=== PATIENT | male | born 1960 | race Two or more races ===

== ENCOUNTER 2019-08-22 07:29 | Inpatient (IN) | payer OTHER ==
[~2019-08-22] VITALS: Ht 172.7 cm; Wt 62.1 kg
[2019-08-22 07:35] VITALS: BP 116/62
--- NOTE | 2019-08-22 07:35 | NUR ---
ED Nurse Note: Patient brought in to ER from street due to ETOH. per EMS, there were few bottles of alcohol around pt when they picked him up. pt opens eyes spontaneously but non verbal. pt restless and tried to remove electrodes and O2 monitor. pt has hernia on abdoman and ERMD assessed. Rt elbow skin tear noted. pt is in gown and on monitor technician. pt uncooperative and restless. posterior skin will be assessed later. clear lung sound noted. BS 113mg/dl, reported to ERMD.
--- NOTE | 2019-08-22 07:40 | NUR ---
ED Nurse Note: warts around penis noted without drainage.
[2019-08-22 08:15] LABS: HEMOGLOBIN 10.7 G/DL (14.2-18.0); MEAN CORPUSCULAR VOLUME 114 FL (80-99); PLATELET COUNT 202 K/UL (150-450); RED BLOOD COUNT 2.91 M/UL (4.70-6.10); RED CELL DISTRIBUTION WIDTH 14.6 % (11.6-14.8); WHITE BLOOD COUNT 11.4 K/UL (4.8-10.8)
--- NOTE | 2019-08-22 08:19 | Emergency Room Report ---
History of Present Illness General Chief Complaint: Altered Level of Consciousness Source: EMS Present Illness HPI 49-year-old male brought in with altered mental status. As per EMS he was sleeping in his makeshift tent and was found to be more lethargic and at baseline. Patient had alcohol on breath. Patient as per EMS was alert oriented x2 however patient is not responding with any verbal responses at this time. History is limited due to patient's mental status changes. Allergies: Coded Allergies: UNABLE TO ASSESS (Unverified , 08/22/19) Patient History Limited by: medical condition Past Medical History: unable to obtain Past Surgical History: unable to obtain Pertinent Family History: unable to obtain Nursing Documentation-PMH Hx Gastrointestinal Problems: Yes - HERNIA Review of Systems All Other Systems: limited - Unable to obtain due to mental status changes Physical Exam Vital Signs Date Time Temp Pulse Resp B/P (MAP) Pulse Ox O2 Delivery O2 Flow Rate FiO2 08/22/19 07:26 99.0 84 18 132/78 (96) 99 Room Air Sp02 EP Interpretation: reviewed General Appearance: no apparent distress, alert, non-toxic, other - Alert but no verbal responses Head: normocephalic, atraumatic Eyes: bilateral eye normal inspection ENT: hearing grossly normal, EOM grossly intact, moist mucus membranes Neck: supple Respiratory: lungs clear, normal breath sounds, no respiratory distress, speaking full sentences Cardiovascular #1: regular rate, rhythm, normal capillary refill Cardiovascular #2: 2+ radial (R), 2+ radial (L) Gastrointestinal: soft, non-distended Rectal: deferred Musculoskeletal: moves extm spontaneously, no lower extremity edema Neurologic: alert, motor strength/tone normal - Unable to fully test however no gross deficits noted, phlebotomist associate III-XII nml as tested - Unable to fully test but no gross deficits noted, sensory intact, other - Does not follow commands, nonverbal, moving all 4 extremities and withdraws from pain Psychiatric: other - Unable to test as patient is nonverbal Skin: warm/dry, normal turgor Medical Decision Making ER Course 49-year-old male presents with altered mental status. History is limited due to mental status changes. Patient has no focal deficits on exam. Laboratory Tests Test 08/22/19 07:50 08/22/19 08:45 White Blood Count 11.4 K/UL (4.8-10.8) H Red Blood Count 2.91 M/UL (4.70-6.10) L Hemoglobin 10.7 G/DL (14.2-18.0) L Hematocrit 33.0 % (42.0-52.0) L Mean Corpuscular Volume 114 FL (80-99) H Mean Corpuscular Hemoglobin 36.7 PG (27.0-31.0) H Mean Corpuscular Hemoglobin Concent 32.4 G/DL (32.0-36.0) Red Cell Distribution Width 14.6 % (11.6-14.8) Platelet Count 202 K/UL (150-450) Mean Platelet Volume 5.1 FL (6.5-10.1) L Neutrophils (%) (Auto) % (45.0-75.0) Lymphocytes (%) (Auto) % (20.0-45.0) Monocytes (%) (Auto) % (1.0-10.0) Eosinophils (%) (Auto) % (0.0-3.0) Basophils (%) (Auto) % (0.0-2.0) Differential Total Cells Counted 100 Neutrophils % (Manual) 63 % (45-75) Lymphocytes % (Manual) 28 % (20-45) Monocytes % (Manual) 6 % (1-10) Eosinophils % (Manual) 2 % (0-3) Basophils % (Manual) 1 % (0-2) Band Neutrophils 0 % (0-8) Platelet Estimate Adequate Platelet Morphology Normal Hypochromasia 1+ Anisocytosis 1+ Macrocytosis 2+ Sodium Level 141 MMOL/L (136-145) Potassium Level 4.0 MMOL/L (3.5-5.1) Chloride Level 105 MMOL/L (98-107) Carbon Dioxide Level 21 MMOL/L (21-32) Anion Gap 15 mmol/L (5-15) Blood Urea Nitrogen 3 mg/dL (7-18) L Creatinine 0.8 MG/DL (0.55-1.30) Estimate Glomerular Filtration Rate > 60 mL/min (>60) Glucose Level 125 MG/DL (74-106) H Calcium Level 8.4 MG/DL (8.5-10.1) L Total Bilirubin 3.7 MG/DL (0.2-1.0) H Direct Bilirubin 2.6 MG/DL (0.0-0.3) H Aspartate Amino Transferase (AST) 102 U/L (15-37) H Alanine Aminotransferase (ALT) 26 U/L (12-78) Alkaline Phosphatase 155 U/L (46-116) H Total Creatine Kinase 83 U/L (26-140) Troponin I 0.026 ng/mL (0.000-0.056) Total Protein 8.5 G/DL (6.4-8.2) H Albumin 2.1 G/DL (3.4-5.0) L Globulin 6.4 g/dL Albumin/Globulin Ratio 0.3 (1.0-2.7) L Serum Alcohol 227 mg/dL Urine Color [place] Urine Appearance Slightly cloudy Urine pH 6 (4.5-8.0) Urine Specific [place] 1.015 (1.005-1.035) Urine Protein 1+ (NEGATIVE) H Urine Glucose (UA) Negative (NEGATIVE) Urine Ketones 1+ (NEGATIVE) H Urine Blood 3+ (NEGATIVE) H Urine Nitrite Positive (NEGATIVE) H Urine Bilirubin Negative (NEGATIVE) Urine Ictotest Negative (NEGATIVE) Urine Urobilinogen 1 MG/DL (0.0-1.0) H Urine Leukocyte Esterase 2+ (NEGATIVE) H Urine RBC 0-2 /HPF (0 - 0) H Urine WBC 15-20 /HPF (0 - 0) H Urine Squamous Epithelial Cells Occasional /LPF Urine Bacteria Many /HPF (NONE) H Urine Opiates Screen Negative (NEGATIVE) Urine Barbiturates Screen Negative (NEGATIVE) Phencyclidine (PCP) Screen Positive (NEGATIVE) H Urine Amphetamines Screen Negative (NEGATIVE) Urine Benzodiazepines Screen Negative (NEGATIVE) Urine Cocaine Screen Negative (NEGATIVE) Urine Marijuana (THC) Screen Negative (NEGATIVE) Lab Results Impression Mild anemia with hemoglobin of 10.7 mild elevated WBC, CMP shows mild elevated liver enzyme and alk phos, Urine notes to have many squamous epithelial cells bacteria, positive nitrates, blood, leukocyte esterase, concerning for infection UDS noted positive for PCP EKG Diagnostic Results EKG Time: 08:23 EP Interpretation: A. fib Rate: other - 90s Rhythm: other - A. fib ST Segments: other - QT segment 408, QTc 499 CT/MRI/US Diagnostic Results CT/MRI/US Diagnostic Results : Impression Procedure: CT Head no Contrast EXAM: CT Head Without Intravenous Contrast CLINICAL HISTORY: AMS TECHNIQUE: Axial computed tomography images of the head/brain without intravenous contrast. CTDI is 62.7 mGy and DLP is 1489.1 mGy-cm. One or more of the following dose reduction techniques were used: automated exposure control, adjustment of the mA and/or kV according to patient size, use of iterative reconstruction technique. COMPARISON: No relevant prior studies available. FINDINGS: Brain: No intracranial hemorrhage or mass effect. No clear acute large vessel territorial infarct. Generalized involutional change. Ventricles: Unremarkable. No ventriculomegaly. Bones/joints: No acute fracture. Soft tissues: Unremarkable. Sinuses: Unremarkable as visualized. No acute sinusitis. Mastoid air cells: Unremarkable as visualized. No mastoid effusion. IMPRESSION: No acute intracranial process Last Vital Signs Date Time Temp Pulse Resp B/P (MAP) Pulse Ox O2 Delivery O2 Flow Rate FiO2 08/22/19 07:26 99.0 84 18 132/78 (96) 99 Room Air Status: unchanged Reevaluation Impression Patient laboratory studies reviewed noted to be positive for PCP. Patient has been altered for greater than 6 hours while being observed in the emergency room with no improvement. Patient's vitals are stable at this time. Head CT was reviewed and noted to be negative. For intracranial hemorrhage or mass- effect. Discussed patient's care with on-call physician and patient to be admitted for further work-up and mental status changes. Disposition: ADMITTED INPATIENT Condition: Serious Scripts Unable to Obtain Active Prescriptions or Reported Meds Referrals: NOT CHOSEN BABAR/,REFERRING (PCP) Margarito Quiros M.D. Aug 22, 2019 08:19
[2019-08-22 08:35] VITALS: BP 115/81
[2019-08-22 08:35] LABS: ANION GAP 15 mmol/L (5-15); BLOOD UREA NITROGEN 3 mg/dL (7-18); CALCIUM 8.4 MG/DL (8.5-10.1); CARBON DIOXIDE 21 MMOL/L (21-32); CHLORIDE 105 MMOL/L (98-107); CREATININE 0.8 MG/DL (0.55-1.30); SODIUM 141 MMOL/L (136-145)
--- NOTE | 2019-08-22 08:45 | NUR ---
ED Nurse Note: pt taken down to CT scan.
[2019-08-22 08:46] LABS: ALANINE AMINOTRANSFERASE 26 U/L (12-78); ALBUMIN 2.1 G/DL (3.4-5.0); ALBUMIN/GLOBULIN RATIO 0.3 (1.0-2.7); ALKALINE PHOSPHATASE 155 U/L (46-116); ASPARTATE AMINO TRANSFERASE 102 U/L (15-37); BILIRUBIN,TOTAL 3.7 MG/DL (0.2-1.0)
[2019-08-22 08:47] LABS: BILIRUBIN,DIRECT 2.6 MG/DL (0.0-0.3)
[2019-08-22 08:48] LABS: CREATINE KINASE 83 U/L (26-140)
[2019-08-22 08:58] LABS: BILIRUBIN, URINE NEGATIVE (NEGATIVE); COLOR,URINE AMBER; GLUCOSE, URINE (UA) NEGATIVE (NEGATIVE); KETONES,URINE 1+ (NEGATIVE); LEUKOCYTE ESTERASE ,URINE 2+ (NEGATIVE); NITRITE,URINE POSITIVE (NEGATIVE); PH,URINE 6 (4.5-8.0); PROTEIN,URINE 1+ (NEGATIVE); UROBILINOGEN,URINE 1 MG/DL (0.0-1.0)
[2019-08-22 09:04] LABS: APPEARANCE,URINE SLIGHTLY CLOUDY
--- NOTE | 2019-08-22 09:05 | NUR ---
ED Nurse Note: pt came back from CT in [facility].
--- NOTE | 2019-08-22 09:07 | Diagnostic Imaging Report ---
EXAM: CT Head Without Intravenous Contrast CLINICAL HISTORY: AMS TECHNIQUE: Axial computed tomography images of the head/brain without intravenous contrast. CTDI is 62.7 mGy and DLP is 1489.1 mGy-cm. One or more of the following dose reduction techniques were used: automated exposure control, adjustment of the mA and/or kV according to patient size, use of iterative reconstruction technique. COMPARISON: No relevant prior studies available. FINDINGS: Brain: No intracranial hemorrhage or mass effect. No clear acute large vessel territorial infarct. Generalized involutional change. Ventricles: Unremarkable. No ventriculomegaly. Bones/joints: No acute fracture. Soft tissues: Unremarkable. Sinuses: Unremarkable as visualized. No acute sinusitis. Mastoid air cells: Unremarkable as visualized. No mastoid effusion. IMPRESSION: No acute intracranial process
[2019-08-22 09:28] VITALS: BP 108/66
--- NOTE | 2019-08-22 13:14 | NUR ---
ED Nurse Note: report given to REINALDO Fox. will transfer pt after ERMD gave report to Dr. Leavitt.
--- NOTE | 2019-08-22 14:10 | NUR ---
ED Nurse Note: pt transferred to Tele unit with 1 RN and 1 dev technical mgr in stable condition.
--- NOTE | 2019-08-22 14:25 | NUR ---
NURSE NOTES: Received report from REINALDO Bailon. Patient AOx0, non verbal, open eyes spontaneously, withdraws to pain. SR with HR 95, on room air. IV on left upper arm 18G, asymptomatic, patent, intact. Endorsed Head CT taken, need to take CT ABD. Patient unable to provide medical history due to ALCO, unable to provide name, no ID. Belonging checked with RN, application architect on. Abdomen distended, hernia on lower mid quadrant, skin intact except minor laceration on hands and buttocks. Seizure precaution on, Bed in lowest position, side rails upx3, padded, bed alarm on, call light within reach. Will continue to monitor.
[2019-08-22] MEDS: cefTRIAXone 1 GM in D5W 55 ML IVPB SCH (15:16)
--- NOTE | 2019-08-22 15:57 | NUR ---
NURSE NOTES: Received admission order from Dr. Leavitt. Dr. Leavitt made aware patient restless trying to get out of bed, high risk for fall. Per MD, administer Ativan as ordered. Order noted, entered, carried out. Will continue to monitor.
[2019-08-22 16:00] VITALS: BP 100/53
[2019-08-22] MEDS ORDERED: Thiamine 100mg in D5W 55ml IVPB ONE (16:00)
[2019-08-22] MEDS ORDERED: Folic Acid 1 MG, Magnesium Sulfate 2,000 MG, Multivitamin - 12 Injection 10 ML in Sodiu... IV ONE (16:00)
[2019-08-22] MEDS: LORazepam Inj 2mg/ml 1ml IV PRN (16:06)
--- NOTE | 2019-08-22 19:07 | NUR ---
HAND-OFF: Report given to REINALDO Fung.
--- NOTE | 2019-08-22 19:10 | NUR ---
NURSE NOTES: Received patient from REINALDO Sears. Patient asleep in bed, no signs of shortness of breath, pain, or distress noted. IV site checked, intact and patent, no signs of redness, bleeding, or infiltration noted. Seizure precautions in use, side rails padded and suction at bedside. Fall and aspiration precautions in use. Swallow evaluation planned for 08/23, patient currently NPO. Bed in lowest position, brakes on, side rails up x3, and call light within reach. Will continue with plan of care.
[2019-08-22 20:00] VITALS: BP 104/63
[2019-08-22] MEDS: Heparin 5000 units/ml inj SUBQ SCH (21:00)
--- NOTE | 2019-08-22 22:00 | History and Physical Report ---
DATE OF ADMISSION: 08/22/2019 CHIEF COMPLAINT: Altered mental status, toxic metabolic encephalopathy. HISTORY OF PRESENT ILLNESS: The patient is a 49-year-old male. He is unable provide any history. He was brought in with complaints of altered mental status. On evaluation in the emergency room, the patient was agitated and confused. Laboratories were significant for white count of 11, a bilirubin of 3.7 with a direct bilirubin 2.6, AST of 102 and ALT of 26. Troponin was negative. CT scan of the head was unremarkable. Toxicology screen was positive for PCP and he had a serum alcohol level of 227. PAST MEDICAL HISTORY: Unknown. PAST SURGICAL HISTORY: Unknown. CURRENT MEDICATIONS: Unknown. SOCIAL HISTORY: There is no known history of tobacco, ethanol, or drugs. REVIEW OF SYSTEMS: Unobtainable. PHYSICAL EXAMINATION: VITAL SIGNS: Temperature 96.8, pulse 86, respirations 20, and blood pressure 100/53. GENERAL: The patient is in no distress. HEART: Regular rate and rhythm. LUNGS: Clear. ABDOMEN: Soft. EXTREMITIES: Without clubbing or cyanosis. NEUROLOGIC: The patient is unable to follow with the neurologic exam. He is awake, but does not follow commands. ASSESSMENT: This is a 49-year-old male, who presents with altered mental altered, suspect toxic metabolic encephalopathy secondary to PCP. Cannot rule out some component of a mild UTI, cannot rule out hepatic encephalopathy. PLAN: 1. Check an ammonia level. 2. IV antibiotic therapy. 3. Consider MRI of the brain. 4. Benzodiazepines for agitation. 5. The patient to be ordered a banana bag. 6. We will repeat LFTs in the morning. Henry Leavitt M.D. DR: JULISA JOB#: [id number] CC:
[2019-08-23] VITALS: BP 95/57
--- NOTE | 2019-08-23 02:00 | NUR ---
NURSE NOTES: Called Dr. Leavitt's office regarding patient's active vomiting and nausea, as well as complaint of pain. Awaiting callback, will continue to monitor.
--- NOTE | 2019-08-23 03:21 | NUR ---
NURSE NOTES: Dr. Gomez called to order PRN zofran for patient, no new orders regarding pain medications. Noted and carried out. Will continue to monitor.
[2019-08-23 04:00] VITALS: BP 95/53
--- NOTE | 2019-08-23 07:16 | NUR ---
HAND-OFF: Report given to REINALDO Brewer. Patient in stable condition and plan of care endorsed.
[2019-08-23 08:00] VITALS: BP 124/51
--- NOTE | 2019-08-23 08:00 | NUR ---
NURSE NOTES: Patient stable AOx4 with complaints of not feeling well and GERD. Does not want to eat at this time. No s/sx of distress. RR even and unlabored on RA. Heparin running at 12units/kg/hour. Side rails up x2, call light within reach, bed low and locked. Will continue to monitor.
--- NOTE | 2019-08-23 08:00 | NUR ---
NURSE NOTES: Patient stable. States his name is Rocco Hansen is not oriented place, time or purpose. Per patient no more emesis. Abdomen noted to be large with small round red protrusion noted near umbilicus. Pt asking for [place] but no order. Will contact MD. Also asking for juice but informed he is NPO and given ice chips instead. Side rails padded and up x2, call light within reach, bed low and locked. Will continue to monitor.
--- NOTE | 2019-08-23 08:21 | NUR ---
NURSE NOTES: Patient complaining of pain and requesting [place]. Per MD no narcotics. Order for tramadol received.
[2019-08-23] MEDS ORDERED: traMADol 50mg tab ORAL PRN (08:30)
[2019-08-23] MEDS: Thiamine 100mg tab ORAL SCH (08:45)
[2019-08-23] MEDS: Heparin 5000 units/ml inj SUBQ SCH ×2 (08:51→21:00)
--- NOTE | 2019-08-23 08:58 | General Progress Note ---
Assessment/Plan Problem List: (1) AMS (altered mental status) ICD Codes: R41.82 - Altered mental status, unspecified SNOMED: 289615352 Status: stable Assessment/Plan: ams- 2nd to pcp - social servives for placement dc planning no narcotics Subjective ROS Limited/Unobtainable: No Constitutional: Reports: malaise, weakness HEENT: Reports: no symptoms Cardiovascular: Reports: no symptoms Respiratory: Reports: no symptoms Gastrointestinal/Abdominal: Reports: no symptoms Genitourinary: Reports: no symptoms Neurologic/Psychiatric: Reports: anxiety Endocrine: Reports: no symptoms Hematologic/Lymphatic: Reports: no symptoms Allergies: Coded Allergies: UNABLE TO ASSESS (Unverified , 08/22/19) All Systems: reviewed and negative except above Subjective awake and alert. Objective Last 24 Hour Vital Signs Date Time Temp Pulse Resp B/P (MAP) Pulse Ox O2 Delivery O2 Flow Rate FiO2 08/23/19 04:00 96.5 115 18 95/53 (67) 97 08/23/19 04:00 117 08/23/19 00:00 96.0 113 18 95/57 (70) 96 08/23/19 00:00 113 08/22/19 21:00 Room Air 08/22/19 20:00 115 08/22/19 20:00 96.4 116 20 104/63 (77) 95 08/22/19 16:00 106 08/22/19 16:00 96.8 86 20 100/53 (69) 100 08/22/19 14:55 Room Air 08/22/19 14:10 98.6 87 19 116/85 99 Room Air 08/22/19 09:28 95 19 108/66 100 Room Air Intake and Output 08/22/19 08/23/19 19:00 07:00 Intake Total 1000 ml Output Total 850 ml Balance 1000 ml -850 ml Intake Oral 0 ml IV Total 1000 ml Output Urine Total 800 ml Emesis 50 ml Height (Feet): 5 Height (Inches): 8.00 Weight (Pounds): 160 General Appearance: WD/WN, alert Neck: supple Cardiovascular: regular rhythm Respiratory/Chest: lungs clear Abdomen: normal bowel sounds, non tender Edema: no edema noted Arm (L), no edema noted Arm (R), no edema noted Leg (L), no edema noted Leg (R), no edema noted Pedal (L), no edema noted Pedal (R), no edema noted Generalized Henry Leavitt MD Aug 23, 2019 08:58
--- NOTE | 2019-08-23 09:40 | NUR ---
NURSE NOTES: PTT back. Heparin dose increased to 14units/kg/hour. 2500unit heparin bolus administered.
--- NOTE | 2019-08-23 11:15 | NUR ---
SWALLOW/SPEECH THERAPY NOTE: REFERRED FOR SWALLOW EVAL BY DR WOODS, SEE FULL REPORT. DYSPHAGIA RISK FACTORS FOR THIS 49 Y.O.M. (TRANSIENT, NOT HIS REAL NAME WHICH HE SAYS IS HELEN GARCIA TO TWO PEOPLE): ACUTE AMS PER MD suspect toxic metabolic encephalopathy secondary to PCP. Cannot rule out some component of a mild UTI, cannot rule out hepatic encephalopathy. LUNGS ARE CLEAR NOW. PER PATIENT HE HAS BACK PAIN FROM FALL 2 YEARS AGO. HIATAL HERNIA PER PATIENT. NO POLST/AD REGARDING TUBE FEEDING PREFERENCES IF NEEDS. ? DIET PRIOR TO ADMIT LIKELY REGULAR DIET TEXTURE AND THIN LIQUIDS. PER PT OCC PROBLEMS WITH THIN BUT UNCLEAR WHEN THIS STARTED BUT LUNGS ARE CLEAR. TRANSIENT PER MEDICAL RECORD. SLEEPY INITIALLY BUT STAYED AWAKE FOR PO TRIALS. ABLE TO EXPRESS NAME AND YEAR NOT HOSPITAL NAME. DYSARTHRIA/DYSPHONIA - SPEECH IS IMPRECISE AND VOICE IS HOARSE/ROUGH NEEDS REPETITION FOR SOME WORDS. ABLE TO EXPRESS SOME BASIC NEEDS. INITIAL IMPRESSIONS: S/S OF COUGH / DYSPHAGIA WITH SEQUENTIAL SIPS OF WATER VIA STRAW (LAST SIP ONLY) BUT TOLERATES WELL ONE SIP AT A TIME. MILDLY SLOWER (TENDS TO CHEW BOLUS UNNECESSARILY FOR A FEW SECONDS) BUT GROSSLY FUNCTIONAL SWALLOW (FAIR HYOLARYNGEAL EXCURSION) WITH PUREED (TSP APPLESAUCE) W/O ORAL RESIDUE NOR OVERT ASPIRATION. SLOWER CHEWING (7 SECONDS) BUT APPEARED TO HAVE A GROSSLY FUNCTIONAL SWALLOW WITH MASTICATED SOLID (1/2 SALTINE CRACKER) HAS MOST DENTITION W/O ORAL RESIDUE NOR OVERT ASPIRATION. ? SILENT ASPIRATION RISK (HEAD CT NEG BUT MAY GET MRI PER DR WOODS). PER RN NO OVERT S/S OF ASPIRATION WHEN TAKING LARGE PILLS WHOLE WITH WATER. RECOMMENDATIONS: CONSIDER MOD BARIUM SWALLOW STUDY TO FURTHER ASSESS SWALLOW, DETERMINE SILENT ASP RISK, ATTEMPT TRIAL TX. IF PO GIVEN FOR QUALITY OF LIFE (PATIENT HUNGRY), CONSIDER [facility] SOFT CHOPPED DIET AND THIN LIQUIDS (ONLY ONE SIP AT A TIME STRAW/CUP) WITH ALL MEALS SUPERVISE ASSISTED FOR RATE/AMOUNT. DIET TYPE PER MD/RD (NO REPORT TO DATE BY RD). EDUCATED/TRAINED RNMARTIN IN POSTED ASP PRECAUTIONS. SKILLED DYSPHAGIA MANAGEMENT AND TX AND COG-COM EVAL/TX (DYSARTHRIA/DYSPHONIA ? CHECK VOCAL FOLDS AND SEE IF THERE IS A H/O SMOKING AND GERD VOICE IS HOARSE/ROUGH MAY NEED ENT EVAL PRIOR TO ADDRESSING VOICE ISSUES). D/W DR WOODS REGARDING RESULT/RECOMMENDATIONS.
[2019-08-23 12:00] VITALS: BP 118/57
--- NOTE | 2019-08-23 12:46 | NUR ---
CASE MANAGEMENT:REVIEW 49 YR OLD MALE BIBA FROM STREET CC AMS. POSSIBLE ETOH SI: AMS 99.0 84 18 132/78 99% ON RA 'WBC+11.4 IS: 1L NS BOLUS IV BANANA BAG IV THIAMINE CT HEAD URINE CX : TO TELEMETRY DCP: HOMELESS
[2019-08-23] MEDS: cefTRIAXone 1 GM in D5W 55 ML IVPB SCH (14:47)
[2019-08-23 16:00] VITALS: BP 120/50
--- NOTE | 2019-08-23 16:25 | Diagnostic Imaging Report ---
Indication: Abdominal pain Technique: Spiral acquisitions obtained through the abdomen and pelvis. No oral contrast utilized, per emergency room physician request No IV contrast utilized, for emergency room physician request.. Multiplanar reconstructions were generated. Total dose length product 1363 mGycm. CTDIvol(s) mGy. Dose reduction achieved using automated exposure control Comparison: None Findings: Lack of IV contrast limits assessment of the solid organs. The liver is diffusely markedly hypoattenuating, consistent with fatty change. There is a TIPS shunt in place. This extends from the right portal vein to the right hepatic vein. No definite focal hepatic abnormality. The right hepatic lobe is atrophic. The liver surface is difficult to assess as it is nearly isoattenuating with the adjacent ascites fluid. There is a large amount of ascites fluid present. There is also congestion of the mesenteric fat. Ascites fluid also extends into an umbilical hernia. The pancreas is unremarkable. Spleen demonstrates what appear to be vascular embolization coils at its periphery. It is normal in size. The adrenals and kidneys are unremarkable. The gallbladder contains gallstones. There is no biliary ductal dilatation. There is suggestion of circumferential gas surrounding the lumen of the terminal ileum as well as at the ileocecal valve. No portal venous gas is demonstrated. Small bowel is normal in caliber and contrast is seen throughout the entirety of the small bowel, indicating absence of obstructive pathology. No definite small bowel wall thickening noted. The appendix is normal. Contrast is also seen as far distally as the transverse flexure of colon. There is no evidence of diverticulosis or colonic diverticulitis. No free intraperitoneal gas demonstrated. There are bilateral pleural effusions. There is fairly extensive compressive atelectasis and possibly some consolidation at both lung bases. There is generalized edema of the subcutaneous fat. The bones demonstrate degenerative spondylosis changes. There is apparent fusion of the L4 and L5 vertebral bodies and spinous processes Impression: Evidence of fatty liver and cirrhosis, with diffuse hepatic low-attenuation and abnormal hepatic morphology and size, as described A large amount of ascites fluid is present, indicative of portal hypertension TIPS shunt in place. Given the large amount of ascites present despite this, the possibility of malfunction should be considered. Consider sonography for evaluation of TIPS patency Apparent circumferential gas surrounding the lumen of the terminal ileum and along the ileocecal valve. Appearance raises concern for focal pneumatosis. However, this could very well be an artifact of so-called pseudopneumatosis due to gas surrounding stool. Correlate with clinical findings. This critical value findings phoned to Dr. Leavitt at the time of interpretation Evidence of anasarca, with, in addition to the above findings, bilateral pleural effusions, generalized edema of the subcutaneous fat Apparent fusion, likely congenital, of the L4 and L5 vertebral bodies and spinous processes Degenerative spondylosis changes The CT scanner at [facility] is accredited by the [employer] and the scans are performed using protocols designed to limit radiation exposure to as low as reasonably achievable to attain images of sufficient resolution adequate for diagnostic evaluation.
--- NOTE | 2019-08-23 17:25 | NUR ---
NURSE NOTES: Dr. Leavitt contacted regarding CT abdomen results. Orders received for fluids, NPO, CMP and lactic acid. Addendum: 08/23/19 at 1729 by EMILY MATHEW RN /10 abdominal pain reported. Addendum: 08/23/19 at 1730 by EMILY MATHEW RN Order also received for [place].
[2019-08-23] MEDS: D5NS 1,000 ML IV SCH (17:34)
[2019-08-23] MEDS: traMADol 50mg tab ORAL PRN (17:35)
--- NOTE | 2019-08-23 19:43 | NUR ---
HAND-OFF: Report given to Sandhya Hernandez RN. Patient stable. Plan of care endorsed.
--- NOTE | 2019-08-23 19:45 | NUR ---
NURSE NOTES: RECEIVED PATIENT ASLEEP, AROUSABLE. FALL AND SEIZURE PRECAUTIONS IN PLACE: CALL LIGHT AND BEDSIDE TABLE WITHIN REACH, BED IN LOW POSITION AND BED ALARM ON; SIDE RAILS PADDED. WILL CONTINUE WITH PLAN OF CARE.
[2019-08-23 21:00] VITALS: BP 100/56
[2019-08-23] MEDS ORDERED: Tubing IV Secondary IV ONE (21:13)
[2019-08-23] MEDS: Piperacillin/Tazobactam 3.375 GM in NS 110 ML IVPB SCH (21:27)
[2019-08-24] VITALS: BP 101/54
[2019-08-24] MEDS: D5NS 1,000 ML IV SCH ×3 (03:30→23:27)
[2019-08-24 04:00] VITALS: BP 105/60
[2019-08-24] MEDS: Piperacillin/Tazobactam 3.375 GM in NS 110 ML IVPB SCH ×3 (05:24→21:23)
[2019-08-24] MEDS: traMADol 50mg tab ORAL PRN ×2 (05:49→15:56)
--- NOTE | 2019-08-24 07:00 | NUR ---
NURSE NOTES: Received report from REINALDO Arthur. Pt in bed, awake, talkative, no complaints of pain, no apparent distress noted, pt eating breakfast, bed in lowest position, call light within reach.
--- NOTE | 2019-08-24 07:16 | NUR ---
HAND-OFF: Report given to David JENNINGS RN. PATIENT RESTING IN BED, NO SIGNS OF DISTRESS NOTED.
[2019-08-24 07:47] LABS: ALANINE AMINOTRANSFERASE 29 U/L (12-78); ALBUMIN 1.6 G/DL (3.4-5.0); ALBUMIN/GLOBULIN RATIO 0.3 (1.0-2.7); ALKALINE PHOSPHATASE 103 U/L (46-116); ANION GAP 8 mmol/L (5-15); ASPARTATE AMINO TRANSFERASE 115 U/L (15-37); BILIRUBIN,TOTAL 3.4 MG/DL (0.2-1.0); BLOOD UREA NITROGEN 8 mg/dL (7-18); CALCIUM 7.7 MG/DL (8.5-10.1); CARBON DIOXIDE 28 MMOL/L (21-32); CHLORIDE 109 MMOL/L (98-107); POTASSIUM 2.9 MMOL/L (3.5-5.1); SODIUM 145 MMOL/L (136-145)
[2019-08-24 07:48] LABS: BILIRUBIN,DIRECT 2.1 MG/DL (0.0-0.3)
[2019-08-24 08:00] VITALS: BP 122/52
--- NOTE | 2019-08-24 08:09 | NUR ---
NURSE NOTES: Notified Dr. Dagmar Almazan 2.9
[2019-08-24] MEDS: Thiamine 100mg tab ORAL SCH (08:46)
[2019-08-24] MEDS: Heparin 5000 units/ml inj SUBQ SCH ×2 (08:48→21:23)
--- NOTE | 2019-08-24 08:49 | NUR ---
CASE MANAGEMENT:REVIEW 08/24/19 SI:AMS D/T PCP. ENTEROBACTER UTI 97.5 103 18 105/60 98% ON RA K-2.9 CA-7.7 IS: IV ZOSYN Q8HRS IV ROCEPHIN Q24 IVF@100/HR K-DUR PO X1 MVI PO QD THIAMINE PO QD PROTONIX PO QD HEPARIN SQ Q12 : TELEMETRY STATUS DCP: UNCONFIRMED PLAN: START CLEAR LIQUIDS
[2019-08-24 11:36] VITALS: BP 143/57
[2019-08-24] MEDS: LORazepam Inj 2mg/ml 1ml IV PRN (12:45)
--- NOTE | 2019-08-24 14:27 | General Progress Note ---
Assessment/Plan Problem List: (1) AMS (altered mental status) ICD Codes: R41.82 - Altered mental status, unspecified SNOMED: 279263432 Status: stable Assessment/Plan: ams- 2nd to pcp - [facility] for placement repeat ct no narcotics dc planning if ct negative Subjective ROS Limited/Unobtainable: No Constitutional: Reports: no symptoms HEENT: Reports: no symptoms Cardiovascular: Reports: no symptoms Respiratory: Reports: no symptoms Gastrointestinal/Abdominal: Reports: no symptoms Genitourinary: Reports: no symptoms Neurologic/Psychiatric: Reports: no symptoms Endocrine: Reports: no symptoms Hematologic/Lymphatic: Reports: no symptoms Allergies: Coded Allergies: UNABLE TO ASSESS (Unverified , 08/22/19) All Systems: reviewed and negative except above Subjective awake and alert. less confused. denies abd pain Objective Last 24 Hour Vital Signs Date Time Temp Pulse Resp B/P (MAP) Pulse Ox O2 Delivery O2 Flow Rate FiO2 08/24/19 11:36 98.2 107 18 143/57 (85) 97 08/24/19 11:25 111 08/24/19 08:18 Room Air 08/24/19 08:00 98.4 105 20 122/52 (75) 96 08/24/19 07:45 105 08/24/19 04:00 103 08/24/19 04:00 97.5 107 18 105/60 (75) 98 08/24/19 00:00 104 08/24/19 00:00 97.8 109 20 101/54 (70) 98 08/23/19 21:00 Room Air 08/23/19 21:00 109 08/23/19 21:00 98.0 106 20 100/56 (71) 98 08/23/19 16:00 99.9 108 18 120/50 (73) 95 08/23/19 16:00 107 Intake and Output 08/23/19 08/24/19 19:00 07:00 Intake Total 155 ml 687.5 ml Output Total 500 ml 200 ml Balance -345 ml 487.5 ml IV Total 155 ml 687.5 ml Output Urine Total 500 ml 200 ml Stool Total 0 ml # Voids 1 Laboratory Tests 08/24/19 05:46: Sodium Level 145, Potassium Level 2.9L, Chloride Level 109H, Carbon Dioxide Level 28, Anion Gap 8, Blood Urea Nitrogen 8, Creatinine 1.0, Estimat Glomerular Filtration Rate > 60, Glucose Level 84, Lactic Acid Level 1.20, Calcium Level 7.7L, Total Bilirubin 3.4H, Direct Bilirubin 2.1H, Aspartate Amino Transf (AST/SGOT) 115H, Alanine Aminotransferase (ALT/SGPT) 29, Alkaline Phosphatase 103, Total Protein 6.6, Albumin 1.6L, Globulin 5.0, Albumin/ Globulin Ratio 0.3L Height (Feet): 5 Height (Inches): 8.00 Weight (Pounds): 160 Objective General Appearance: WD/WN, alert Neck: supple Cardiovascular: regular rhythm Respiratory/Chest: lungs clear Abdomen: normal bowel sounds, non tender. small reducible periumbilical hernia Edema: no edema noted Arm (L), no edema noted Arm (R), no edema noted Leg (L), no edema noted Leg (R), no edema noted Pedal (L), no edema noted Pedal (R), no edema noted Generalized Henry Leavitt MD Aug 24, 2019 14:27
[2019-08-24 15:47] VITALS: BP 125/83
--- NOTE | 2019-08-24 19:20 | NUR ---
NURSE NOTES: Received report from REINALDO Hill. Patient is asleep, arousable to name, lying in semi laughlin's; resting comfortably. A/Ox3, with period of confusion. Able to make needs known with assistance. Denies pain at this time. No signs of acute distress noted. Checked IV site and flushed. No erythema, bleeding or infiltration noted. Bed at lowest position, brakes on, siderailsx3. Call light within reach. Will continue to monitor. Addendum: 08/24/19 at 2302 by Romana Stevenson RN Padded siderails for seizure precaution.
--- NOTE | 2019-08-24 19:24 | NUR ---
HAND-OFF: Report given to REINALDO Avendano.
[2019-08-24 20:00] VITALS: BP 120/77
[2019-08-25] VITALS: BP 107/66
--- NOTE | 2019-08-25 01:14 | NUR ---
NURSE NOTES: Resting throughout the night. No significant change of condition noted. Will continue to monitor.
[2019-08-25 04:00] VITALS: BP 101/64
[2019-08-25] MEDS: Piperacillin/Tazobactam 3.375 GM in NS 110 ML IVPB SCH ×3 (05:14→22:10)
--- NOTE | 2019-08-25 06:56 | NUR ---
HAND-OFF: Report given to REINALDO Hill. Plan of care endorsed.
[2019-08-25 07:20] LABS: ALANINE AMINOTRANSFERASE 34 U/L (12-78); ALBUMIN/GLOBULIN RATIO 0.3 (1.0-2.7); ALKALINE PHOSPHATASE 126 U/L (46-116); ANION GAP 9 mmol/L (5-15); ASPARTATE AMINO TRANSFERASE 106 U/L (15-37); BLOOD UREA NITROGEN 7 mg/dL (7-18); CARBON DIOXIDE 27 MMOL/L (21-32); CHLORIDE 105 MMOL/L (98-107); POTASSIUM 2.9 MMOL/L (3.5-5.1); SODIUM 141 MMOL/L (136-145)
[2019-08-25 07:21] LABS: BILIRUBIN,DIRECT 2.8 MG/DL (0.0-0.3)
--- NOTE | 2019-08-25 07:48 | NUR ---
NURSE NOTES: Received report from REINALDO Avendano. Pt in bed, asleep, respiration unlabored, IV fluid running according to order, bed in lowest position, call light within reach.
[2019-08-25 07:51] LABS: BASOPHILS % (AUTO) 1.3 % (0.0-2.0); EOSINOPHILS % (AUTO) 3.4 % (0.0-3.0); HEMATOCRIT 28.3 % (42.0-52.0); HEMOGLOBIN 10.1 G/DL (14.2-18.0); MEAN CORPUSCULAR VOLUME 105 FL (80-99); MONOCYTES % (AUTO) 6.7 % (1.0-10.0); NEUTROPHILS % (AUTO) 72.6 % (45.0-75.0); PLATELET COUNT 135 K/UL (150-450); RED BLOOD COUNT 2.69 M/UL (4.70-6.10); RED CELL DISTRIBUTION WIDTH 13.4 % (11.6-14.8); WHITE BLOOD COUNT 11.4 K/UL (4.8-10.8)
--- NOTE | 2019-08-25 07:57 | General Progress Note ---
Assessment/Plan Problem List: (1) AMS (altered mental status) ICD Codes: R41.82 - Altered mental status, unspecified SNOMED: [id number] Status: stable Assessment/Plan: ams- 2nd to pcp - [facility] for placement repeat ct no narcotics check ammonia level add aldactone k replacement dc planning if ct negative Subjective ROS Limited/Unobtainable: No Constitutional: Reports: weakness HEENT: Reports: no symptoms Cardiovascular: Reports: no symptoms Respiratory: Reports: no symptoms Gastrointestinal/Abdominal: Reports: no symptoms Genitourinary: Reports: no symptoms Neurologic/Psychiatric: Reports: no symptoms Endocrine: Reports: no symptoms Hematologic/Lymphatic: Reports: no symptoms Allergies: Coded Allergies: UNABLE TO ASSESS (Unverified , 08/22/19) All Systems: reviewed and negative except above Subjective awake and alert. less confused. denies abd pain, low k noted. LFTS up Objective Last 24 Hour Vital Signs Date Time Temp Pulse Resp B/P (MAP) Pulse Ox O2 Delivery O2 Flow Rate FiO2 08/25/19 04:00 102 08/25/19 04:00 97.8 95 18 101/64 (76) 94 08/25/19 00:00 97.9 99 18 107/66 (80) 95 08/24/19 21:00 Room Air 08/24/19 20:00 97.7 109 19 120/77 (91) 92 08/24/19 20:00 112 08/24/19 16:26 97.5 08/24/19 15:47 97.5 111 20 125/83 (97) 96 08/24/19 15:26 106 08/24/19 11:36 98.2 107 18 143/57 (85) 97 08/24/19 11:25 111 08/24/19 08:18 Room Air 08/24/19 08:00 98.4 105 20 122/52 (75) 96 Intake and Output 08/24/19 08/25/19 19:00 07:00 Intake Total 460 ml 807.21 ml Output Total 50 ml Balance 460 ml 757.21 ml Intake Oral 460 ml IV Total 807.21 ml Output Urine Total 50 ml # Voids 2 1 Laboratory Tests 08/25/19 05:50: White Blood Count [Pending], Red Blood Count [Pending], Hemoglobin [Pending], Hematocrit [Pending], Mean Corpuscular Volume [Pending], Mean Corpuscular Hemoglobin [Pending], Mean Corpuscular Hemoglobin Concent [Pending], Red Cell Distribution Width [Pending], Platelet Count [Pending], Mean Platelet Volume [ Pending], Neutrophils (%) (Auto) [Pending], Lymphocytes (%) (Auto) [Pending], Monocytes (%) (Auto) [Pending], Eosinophils (%) (Auto) [Pending], Basophils (%) (Auto) [Pending], Sodium Level 141, Potassium Level 2.9L, Chloride Level 105, Carbon Dioxide Level 27, Anion Gap 9, Blood Urea Nitrogen 7, Creatinine 1.0, Estimat Glomerular Filtration Rate > 60, Glucose Level 101, Calcium Level 8.0L, Total Bilirubin 5.0H, Direct Bilirubin 2.8H, Aspartate Amino Transf (AST/SGOT) 106H, Alanine Aminotransferase (ALT/SGPT) 34, Alkaline Phosphatase 126H, Total Protein 8.2, Albumin 2.0L, Globulin 6.2, Albumin/Globulin Ratio 0.3L Height (Feet): 5 Height (Inches): 8.00 Weight (Pounds): 170 Objective General Appearance: WD/WN, alert Neck: supple Cardiovascular: regular rhythm Respiratory/Chest: lungs clear Abdomen: normal bowel sounds, non tender. small reducible periumbilical hernia Edema: no edema noted Arm (L), no edema noted Arm (R), no edema noted Leg (L), no edema noted Leg (R), no edema noted Pedal (L), no edema noted Pedal (R), no edema noted Generalized Henry Leavitt MD Aug 25, 2019 07:57
[2019-08-25 08:00] VITALS: BP 114/53
[2019-08-25] MEDS ORDERED: Sodium Chloride for KCL Premix X 4hrs IV SCH (08:00)
[2019-08-25] MEDS: Thiamine 100mg tab ORAL SCH (08:19)
[2019-08-25] MEDS: traMADol 50mg tab ORAL PRN (08:19)
[2019-08-25] MEDS: LORazepam Inj 2mg/ml 1ml IV PRN (08:19)
[2019-08-25] MEDS: Spironolactone 25mg tab ORAL SCH (08:19)
[2019-08-25] MEDS: Heparin 5000 units/ml inj SUBQ SCH ×2 (08:21→21:00)
--- NOTE | 2019-08-25 09:03 | NUR ---
CASE MANAGEMENT:REVIEW 08/25/19 SI:AMS D/T PCP. ENTEROBACTER UTI 98.1 105 20 114/53 92% ON RA K-2.9 IS: IV ZOSYN Q8HRS IVF@100/HR ALDACTONE PO QD IV KCL Q1HRS X4 : TELEMETRY STATUS DCP: UNCONFIRMED PLAN: ADVANCE TO FULL LIQUIDS PT EVAL
[2019-08-25 12:00] VITALS: BP 112/82
--- NOTE | 2019-08-25 12:12 | Diagnostic Imaging Report ---
Indication: Abdominal pain Technique: Spiral acquisitions obtained through the abdomen and pelvis. Patient ingested oral contrast No IV contrast utilized, reason not stated. Multiplanar reconstructions were generated. Total dose length product 1405 mGycm. CTDIvol(s) 21 mGy. Dose reduction achieved using automated exposure control Comparison: 08/23/2019 Findings: Again demonstrated is a large amount of ascites fluid, amount appearing similar to the previous study. The appendix is normal. No free intraperitoneal gas. There are colonic diverticula. No evidence of diverticulitis. No small bowel distention. Contrast is seen throughout the entirety of the small bowel and most of the colon. The distal esophagus, stomach, duodenum are unremarkable. There is a periumbilical hernia into which is now herniated a knuckle of small bowel. Small bowel was not seen in the hernia on the previous study. Ascites fluid is also seen within the hernia sac. Previously demonstrated unusual appearing gas in the terminal ileum and ileocecal valve is no longer evident Lack of IV contrast limits assessment of solid organs. Again demonstrated is diffuse hepatic low-attenuation and somewhat small liver. No definite focal abnormality. Again demonstrated is a TIPS shunt. Again demonstrated are gallstones. No biliary ductal dilatation. The pancreas is markedly atrophic. The spleen is normal in size, demonstrates vascular embolization coils at its periphery. The adrenals are unremarkable. The kidneys are unremarkable. No renal or ureteral calculi, hydronephrosis, or hydroureter. The bladder is markedly distended. No retroperitoneal or mesenteric mass or adenopathy. No pelvic mass or adenopathy. There is diffuse edema of the subcutaneous fat. There are bilateral pleural effusions again demonstrated, appearing larger than on the prior study. Compressive atelectatic changes are seen at both lung bases. Dense consolidation is seen within much of the visualized left lower lobe. Patchy similar opacities are seen in the right middle lobe The bones demonstrate degenerative spondylosis changes of the lumbar spine as well as previously reported fusion of L4 and L5. Impression: Large amount of ascites fluid is again demonstrated, amount similar to the previous exam. Somewhat atrophic fatty liver. TIPS shunt in place. As mentioned previously, presence of the ascites fluid raises concern for TIPS shunt malfunction. Consider sonography for evaluation of patency Periumbilical hernia. There is a knuckle of small bowel herniated into the hernia sac, not evident previously. Ascites within the hernia sac is again demonstrated Evidence of anasarca, with, in addition to the above mentioned ascites diffuse edema of the subcutaneous fat and bilateral pleural effusions. Note that the amount of pleural fluid is increased since the previous study Compressive atelectasis at the lung bases secondary to the pleural fluid Areas of dense consolidation involving the inferior left lower lobe and right middle lobe. This is a new finding and is suspicious for pneumonia Previously questioned terminal ileal pneumatosis is no longer evident, was likely artifactual Atrophic pancreas Colonic diverticulosis 2 groups of embolization coils are seen within perisplenic arteries Distended bladder Degenerative spondylosis and L4-5 fusion again demonstrated The CT scanner at [facility] is accredited by the [employer] and the scans are performed using protocols designed to limit radiation exposure to as low as reasonably achievable to attain images of sufficient resolution adequate for diagnostic evaluation.
[2019-08-25 16:00] VITALS: BP 111/69
--- NOTE | 2019-08-25 16:25 | NUR ---
P.T Note: P.T evaluation completed and tx intiated. Please refer to P.T evaluation for current functional status. Pt is alert , oriented to self but not to place, time and current situation. Pt is cooperative , able to converse appropriately and follows simple commands. Pt appeared generally weak and deconditioned. Pt currently require constant redirections and MIN A for bed mobilities, transfers and gait/ambulation activities ( hand in hand assist ). Skilled P.T service is warranted to increase strength and endurance to increase his mobility independence and safety. Recommend SNF for further rehab intervention.
--- NOTE | 2019-08-25 16:30 | NUR ---
NURSE NOTES: pt's SpO2 desaturating to 87-89, RN put pt on 2LNC SpO2 90, RN put pt on 4lNC SpO2 94-96. HOB elevated >30 degrees, notified Dr. Leavitt and asked for Spo2 order. Addendum: 08/25/19 at 1744 by ORLANDO JENNINGS RN NURSE NOTES: Rn also ask to advance pt's diet
--- NOTE | 2019-08-25 19:30 | NUR ---
HAND-OFF: Report given to REINALDO Muñiz.
--- NOTE | 2019-08-25 19:31 | NUR ---
NURSE NOTES: Received pt from REINALDO Hill. Pt is awake in bed in no acute distress. nasal cannula on at 4L. IV site intact and patent. Bed locked in lowest position, bed alarm on, call light within reach. Seizure precautions implemented. HOB at 45 degrees. Will continue with plan of care.
[2019-08-25 20:00] VITALS: BP 101/75
[2019-08-26] VITALS: BP 107/54
[2019-08-26 04:00] VITALS: BP 107/73
[2019-08-26] MEDS: Piperacillin/Tazobactam 3.375 GM in NS 110 ML IVPB SCH ×3 (05:36→22:06)
[2019-08-26 07:06] LABS: ALANINE AMINOTRANSFERASE 22 U/L (12-78); ALBUMIN 1.4 G/DL (3.4-5.0); ALBUMIN/GLOBULIN RATIO 0.3 (1.0-2.7); ALKALINE PHOSPHATASE 87 U/L (46-116); ANION GAP 6 mmol/L (5-15); ASPARTATE AMINO TRANSFERASE 64 U/L (15-37); BILIRUBIN,TOTAL 4.3 MG/DL (0.2-1.0); BLOOD UREA NITROGEN 6 mg/dL (7-18); CALCIUM 7.6 MG/DL (8.5-10.1); CARBON DIOXIDE 26 MMOL/L (21-32); CHLORIDE 107 MMOL/L (98-107); CREATININE 0.9 MG/DL (0.55-1.30); POTASSIUM 3.2 MMOL/L (3.5-5.1); SODIUM 139 MMOL/L (136-145)
[2019-08-26 07:07] LABS: BILIRUBIN,DIRECT 2.8 MG/DL (0.0-0.3)
--- NOTE | 2019-08-26 07:15 | NUR ---
HAND-OFF: Report given to REINALDO Sears. Endorsed plan of care.
--- NOTE | 2019-08-26 07:31 | NUR ---
NURSE NOTES: Received report from REINALDO Muñiz. Patient in bed resting, no active s/s cardiac, respiratory distress noticed at this time. Patient AOx2-3, for now patient refused to wear NC while he is eating, ST with HR 104. IV on left AC 22G, asymptomatic, patent, intact. MD aware of K level for today, order received. Ultrasound department called and made aware patient already eating breakfast prior US ultrasound order, will hold lunch. Bed in lowest position, side rails upx3 padded, bed alarm on, call light within reach. Will continue to monitor.
--- NOTE | 2019-08-26 07:34 | General Progress Note ---
Assessment/Plan Problem List: (1) AMS (altered mental status) ICD Codes: R41.82 - Altered mental status, unspecified SNOMED: [id number] Status: stable Assessment/Plan: ams- 2nd to pcp - social servives for placement abd us- check tips paracentesis iv abx needs snf Subjective ROS Limited/Unobtainable: No Constitutional: Reports: malaise, weakness HEENT: Reports: no symptoms Cardiovascular: Reports: no symptoms Respiratory: Reports: no symptoms Gastrointestinal/Abdominal: Reports: no symptoms Genitourinary: Reports: no symptoms Neurologic/Psychiatric: Reports: no symptoms Endocrine: Reports: no symptoms Hematologic/Lymphatic: Reports: no symptoms Allergies: Coded Allergies: UNABLE TO ASSESS (Unverified , 08/22/19) All Systems: reviewed and negative except above Subjective awake and alert. less confused. denies abd pain, low k noted. LFTs stable. Ct no pneumatosis. more sob. +pna on ct Objective Last 24 Hour Vital Signs Date Time Temp Pulse Resp B/P (MAP) Pulse Ox O2 Delivery O2 Flow Rate FiO2 08/26/19 04:55 99.9 08/26/19 04:00 109 08/26/19 04:00 97.9 109 19 107/73 (84) 96 08/26/19 00:00 93 08/26/19 00:00 98.2 93 20 107/54 (71) 94 08/25/19 21:00 Nasal Cannula 4.0 08/25/19 20:00 98.1 93 19 101/75 (84) 92 08/25/19 20:00 93 08/25/19 16:00 97.5 112 20 111/69 (83) 92 08/25/19 15:10 103 08/25/19 12:00 97.7 100 18 112/82 (92) 92 08/25/19 11:30 102 08/25/19 09:00 Nasal Cannula 2.0 08/25/19 08:49 98.1 08/25/19 08:00 98.1 105 20 114/53 (73) 92 Intake and Output 08/25/19 08/26/19 19:00 07:00 Intake Total 200 ml Balance 200 ml Intake Oral 200 ml # Voids 3 Laboratory Tests 08/25/19 08:50: Ammonia 08/26/19 06:15: Sodium Level 139, Potassium Level 3.2L, Chloride Level 107, Carbon Dioxide Level 26, Anion Gap 6, Blood Urea Nitrogen 6L, Creatinine 0.9, Estimat Glomerular Filtration Rate > 60, Glucose Level 137H, Calcium Level 7.6L, Total Bilirubin 4.3H, Direct Bilirubin 2.8H, Aspartate Amino Transf (AST/SGOT) 64H, Alanine Aminotransferase (ALT/SGPT) 22, Alkaline Phosphatase 87, Total Protein 6.2L, Albumin 1.4L, Globulin 4.8, Albumin/Globulin Ratio 0.3L Height (Feet): 5 Height (Inches): 8.00 Weight (Pounds): 170 Objective General Appearance: WD/WN, alert Neck: supple Cardiovascular: regular rhythm Respiratory/Chest: lungs clear Abdomen: normal bowel sounds, non tender. small reducible periumbilical hernia Edema: no edema noted Arm (L), no edema noted Arm (R), no edema noted Leg (L), no edema noted Leg (R), no edema noted Pedal (L), no edema noted Pedal (R), no edema noted Generalized Henry Leavitt MD Aug 26, 2019 07:34
[2019-08-26 08:00] VITALS: BP 99/58
--- NOTE | 2019-08-26 08:20 | NUR ---
NURSE NOTES: RN witness patient sign consent for paracentesis. When procedure explained as getting fluid out from abdomen, patient stated "paracentesis? I had received paracentesis before couple times"
[2019-08-26] MEDS: Thiamine 100mg tab ORAL SCH (08:37)
[2019-08-26] MEDS: Spironolactone 25mg tab ORAL SCH (08:37)
[2019-08-26] MEDS: Heparin 5000 units/ml inj SUBQ SCH ×2 (08:37→21:00)
--- NOTE | 2019-08-26 10:43 | Diagnostic Imaging Report ---
Indication: Shortness of breath Technique: XRAY Chest 1v Comparison: None Findings: Heart size within normal limits. Based on contours are sharp. Lateral interstitial and airspace disease noted, left greater than right. Trace bilateral pleural effusions suggested. No evidence of pneumothorax. Embolization coils noted in the left upper quadrant. Tips shunt 10 visualized. No acute osseous abnormality. IMPRESSION: Interstitial and patchy bilateral airspace disease. Findings concerning for multifocal pneumonia. Clinical correlation and follow-up recommended.
--- NOTE | 2019-08-26 10:49 | NUR ---
NURSE NOTES: When asked if patient has family member or any close friend, patient gives number [facility] tele :[phone]. Called Blake, left message.
--- NOTE | 2019-08-26 11:55 | NUR ---
CASE MANAGEMENT:REVIEW 08/26/19 SI:AMS D/T PCP. ENTEROBACTER UTI 99.9 110 18 99/58 92% ON 4L/NC IS: IV ZOSYN Q8HRS ALDACTONE PO QD : TELEMETRY STATUS DCP: UNCONFIRMED PLAN: US PARACENTESIS ~ NPO
[2019-08-26 12:00] VITALS: BP 100/63
--- NOTE | 2019-08-26 13:10 | NUR ---
NURSE NOTES: Patient off the unit for paracentesis
--- NOTE | 2019-08-26 13:12 | NUR ---
RADIOLOGY DEPT., CHEST X-RAY DONE.-P.DYE
--- NOTE | 2019-08-26 15:35 | NUR ---
NURSE NOTES: Patient back from procedure, endorsed 6.3L out from paracentesis, lab collected and sent to lab. No acute bleeding, c/o pain on abdomen. Abdomen soft, round. library monitor on.
[2019-08-26 16:00] VITALS: BP 98/46
--- NOTE | 2019-08-26 16:25 | NUR ---
HOMELESS COORDINATOR HC spoke with patient and patient is alert. Patient does not have a contact number or person. Patient seems to be short or breathe. Patient doesn't want answer questions and repeating answers to new questions. Patient is giving HC the impression that he's confused. Patient states he lives at a medical custodial at [facility]. Patient states he gets 1,200 in SSI. Patient is refusing to provide any additional info. Patient continues to require medical intervention. Will continue to monitor and assist as needed.
[2019-08-26] MEDS: traMADol 50mg tab ORAL PRN (18:00)
--- NOTE | 2019-08-26 19:36 | NUR ---
HAND-OFF: Report given to REINALDO Muñiz.
--- NOTE | 2019-08-26 19:37 | NUR ---
NURSE NOTES: Received pt from REINALDO Sears. Pt is awake and resting in bed in no distress. Nasal cannula on titrated to 4L, O2 at 95%. Iv site intact and patent. Bed locked in lowest position, bed alarm on, call light within reach. Will continue with plan of care.
[2019-08-26 20:00] VITALS: BP 81/41
[2019-08-27] VITALS: BP 91/58
[2019-08-27 04:00] VITALS: BP 94/52
[2019-08-27] MEDS: Piperacillin/Tazobactam 3.375 GM in NS 110 ML IVPB SCH ×2 (06:02→14:35)
--- NOTE | 2019-08-27 06:43 | General Progress Note ---
Assessment/Plan Problem List: (1) AMS (altered mental status) ICD Codes: R41.82 - Altered mental status, unspecified SNOMED: [id number] Status: stable Assessment/Plan: iv abx check sputum culture po diuretics not ready for dc yet. Subjective ROS Limited/Unobtainable: No Constitutional: Reports: malaise, weakness HEENT: Reports: no symptoms Cardiovascular: Reports: no symptoms Respiratory: Reports: cough Gastrointestinal/Abdominal: Reports: no symptoms Genitourinary: Reports: no symptoms Neurologic/Psychiatric: Reports: no symptoms Endocrine: Reports: no symptoms Hematologic/Lymphatic: Reports: no symptoms Allergies: Coded Allergies: UNABLE TO ASSESS (Unverified , 08/22/19) All Systems: reviewed and negative except above Subjective c/o cough. s/p paracentesis. cxr yesterday with multifocal pna Objective Last 24 Hour Vital Signs Date Time Temp Pulse Resp B/P (MAP) Pulse Ox O2 Delivery O2 Flow Rate FiO2 08/27/19 00:00 97.7 97 22 91/58 (69) 93 08/27/19 00:00 97 08/26/19 21:00 Nasal Cannula 4.0 08/26/19 20:00 99.7 99 21 81/41 (54) 90 08/26/19 20:00 99 08/26/19 16:00 123 08/26/19 16:00 99.0 119 20 98/46 (63) 92 08/26/19 12:00 98.8 120 20 100/63 (75) 92 08/26/19 12:00 113 08/26/19 09:00 Nasal Cannula 4.0 08/26/19 08:00 97.9 110 18 99/58 (72) 92 08/26/19 08:00 121 Intake and Output 08/26/19 08/27/19 19:00 07:00 Intake Total 480 ml Balance 480 ml Intake Oral 480 ml Laboratory Tests 08/26/19 16:24: Body Fluid Source Parasentesis, Body Fluid Volume 24, Body Fluid Appearance Clear, Body Fluid RBC 30, Body Fluid Total Nucleated Cells 7, Body Fluid Polynuclear WBCs (%) 0, Body Fluid Mononuclear WBCs (%) 95, Body Fluid Mesothelial Cells (%) 5 Height (Feet): 5 Height (Inches): 8.00 Weight (Pounds): 170 Objective General Appearance: WD/WN, alert Neck: supple Cardiovascular: regular rhythm Respiratory/Chest: lungs clear Abdomen: normal bowel sounds, non tender. small reducible periumbilical hernia Edema: no edema noted Arm (L), no edema noted Arm (R), no edema noted Leg (L), no edema noted Leg (R), no edema noted Pedal (L), no edema noted Pedal (R), no edema noted Generalized Henry Leavitt MD Aug 27, 2019 06:43
--- NOTE | 2019-08-27 07:21 | NUR ---
HAND-OFF: Report given to REINALDO Segal. Endorsed plan of care.
--- NOTE | 2019-08-27 07:49 | NUR ---
NURSE NOTES: pt. in bed awake, food tray at bedside. Pt. has cardiac exercise specialist no signs of cardiac or respiratory distress at this time. Bed is locked and in lowest position. Call light is within reach. will continue to monitor pt and labs.
[2019-08-27 07:52] LABS: HEMATOCRIT 27.7 % (42.0-52.0); HEMOGLOBIN 8.9 G/DL (14.2-18.0); MEAN CORPUSCULAR VOLUME 113 FL (80-99); PLATELET COUNT 121 K/UL (150-450); RED BLOOD COUNT 2.45 M/UL (4.70-6.10); RED CELL DISTRIBUTION WIDTH 14.9 % (11.6-14.8); WHITE BLOOD COUNT 16.6 K/UL (4.8-10.8)
[2019-08-27] MEDS ORDERED: Vancomycin 1.5gm/NS Premix IVPB ONE (08:00)
[2019-08-27 08:35] VITALS: BP 129/72
--- NOTE | 2019-08-27 08:53 | NUR ---
CASE MANAGEMENT:REVIEW 08/27/19 SI:AMS D/T PCP. ENTEROBACTER UTI 98.0 117 20 94/52 96% ON 4L-6L/NC WBC+16.6 H/H-8.9/27.7 PLT-121 IS: IV ZOSYN Q8HRS IV VANCOMYCIN Q8HRS ALDACTONE PO QD MVI PO QD THIAMINE PO QD HEPARIN SQ Q12 : TELEMETRY STATUS DCP: UNCONFIRMED PLAN: US PARACENTESIS
--- NOTE | 2019-08-27 08:56 | Diagnostic Imaging Report ---
Indication: Abdominal pain and distention. Cirrhosis with indwelling TIPS shunt and ascites despite the TIPS shunt Technique: Multiplanar grayscale and duplex Doppler evaluation of the abdomen Comparison: CT abdomen pelvis 08/25/2019 Findings: There is a nodular contour of the liver compatible with cirrhosis. There is near complete resolution of ascites status post paracentesis. No focal hepatic mass lesion is appreciated sonographically. Portal vein branches show reversal of flow towards the direction of the TIPS shunt. Imaged left hepatic artery is patent with a normal spectral tracing. IVC is patent. A patent TIPS shunt is noted. Velocities obtained through the TIPS shunt range from 60 cm/second to over 200 cm/second at the distal aspect of the TIPS shunt. In the midportion of the shunt velocities obtained range between 138 to 146 cm/s. Cholelithiasis is identified. No gallbladder wall thickening or pericholecystic fluid. Common bile left is normal in caliber measuring 3 mm diameter Imaged portions of the pancreas grossly unremarkable. Kidneys demonstrate normal echogenicity. There is no hydronephrosis or sonographically appreciable renal stone. Spleen is normal in size. Imaged portions of the abdominal aorta normal in caliber. IMPRESSION: * Significant interval reduction of ascites status post paracentesis. * Cirrhosis with indwelling patent TIPS shunt. Elevated velocities in the distal aspect of the TIPS shunt > 200 cm/s suggesting a degree of possible in-stent stenosis, especially given recurrent ascites. Correlation with prior ultrasound is essential to assess for interval change in velocities. Patient may benefit from interventional tip study with portal pressure measurements and possible TIPS angioplasty, especially if there is a significant elevation in velocities in the shunt upon comparison with baseline study. * Cholelithiasis. No radiographic evidence to suggest acute cholecystitis. Sonographic Ponce sign reported as negative.
[2019-08-27] MEDS: Heparin 5000 units/ml inj SUBQ SCH ×2 (09:00→21:40)
[2019-08-27] MEDS: Spironolactone 25mg tab ORAL SCH (09:03)
[2019-08-27] MEDS: Thiamine 100mg tab ORAL SCH (09:03)
[2019-08-27] MEDS: traMADol 50mg tab ORAL PRN (09:10)
[2019-08-27 09:37] LABS: ALANINE AMINOTRANSFERASE 28 U/L (12-78); ALBUMIN 1.5 G/DL (3.4-5.0); ALBUMIN/GLOBULIN RATIO 0.3 (1.0-2.7); ALKALINE PHOSPHATASE 96 U/L (46-116); ANION GAP 9 mmol/L (5-15); ASPARTATE AMINO TRANSFERASE 87 U/L (15-37); BILIRUBIN,TOTAL 4.6 MG/DL (0.2-1.0); BLOOD UREA NITROGEN 6 mg/dL (7-18); CALCIUM 7.7 MG/DL (8.5-10.1); CARBON DIOXIDE 24 MMOL/L (21-32); CHLORIDE 105 MMOL/L (98-107); POTASSIUM 3.5 MMOL/L (3.5-5.1); SODIUM 138 MMOL/L (136-145)
[2019-08-27 09:45] LABS: BILIRUBIN,DIRECT 2.9 MG/DL (0.0-0.3)
--- NOTE | 2019-08-27 10:39 | NUR ---
NURSE NOTES: notified doctor Dagmar about soon to antibiotic prescription as well as pt latest lab results. Also patient urine red in color, urination was not painful.
--- NOTE | 2019-08-27 10:41 | NUR ---
RD ASSESSMENT & RECOMMENDATIONS SEE CARE ACTIVITY FOR COMPLETE ASSESSMENT DAILY ESTIMATED NEEDS: Needs based on Liver 72.2kg 25-30 kcals/kg 0168-1923 total kcals 1-1.5 g protein/kg 72-108 g total protein Fluid per MD NUTRITION DIAGNOSIS: Decreased sodium and fat needs r/t clinical status, ascites, as evidenced by s/p paracentesis, elev LFT's, elev T bili. CURRENT DIET: Regular diet PO DIET RECOMMENDATIONS: Low Fat/ Low Na diet / texture per [employer] ADDITIONAL RECOMMENDATIONS: 1) Obtain daily standing weight for accuracy 2) rec added Snacks in b/w meals Ensure daily 3) Continue thiamine/ MVI Rec Folate
[2019-08-27 12:00] VITALS: BP 126/73
[2019-08-27] MEDS: Guaifenesin/DM 10ml syrup ORAL PRN ×2 (15:22→21:37)
--- NOTE | 2019-08-27 15:35 | NUR ---
NURSE NOTES: pt o2 sat. between 86-89, respiratory put pt on a Non rebreather mask to assist with O2. Pt responded well and his O2 us 99%
[2019-08-27 16:00] VITALS: BP 113/72
[2019-08-27] MEDS: Vancomycin 750mg/NS 275ml IVPB SCH ×2 (17:47)
--- NOTE | 2019-08-27 18:55 | NUR ---
NURSE NOTES: pt started to get confused and started pulling of Non-rebreather mask. Contacted Dr. Leavitt, and he ordered soft restraints for pt.
--- NOTE | 2019-08-27 19:23 | NUR ---
HAND-OFF: Report given to Sea/REINALDO, pt in stable condition.
--- NOTE | 2019-08-27 19:24 | NUR ---
NURSE NOTES: Received pt from REINALDO Segal. Pt is awake and resting in bed on non-rebreather mask saturating at 99%. Iv site intact and patent. Bilateral soft wrist restraints on with 2 finger lengths space. HOB elevated at >30 degrees. Bed locked in lowest position, bed alarm on, call light within reach. Will continue with plan of care.
[2019-08-27 20:00] VITALS: BP 96/63
[2019-08-27] MEDS ORDERED: Piperacillin/Tazobactam 3.375 GM in NS 110 ML IVPB SCH (22:00)
[2019-08-28] VITALS (7 sets, daily range): BP systolic 65–108; BP diastolic 47–57
[2019-08-28] MEDS: Vancomycin 750mg/NS 275ml IVPB SCH ×2 (01:59)
--- NOTE | 2019-08-28 03:24 | NUR ---
NURSE NOTES: Pt transferred from Tele. Gave report to REINALDO Philip. Pt is lying on the bed and awake and forgetful. On BiPAP setting with 12/5 FiO2 80% and SaO2 94% noted. Denied pain at this time. Iv site intact. On Tele monitor with ST and HR: 110's. Placed fall precaution. Belongings list verified at bedside. Endorsed plan of care.
--- NOTE | 2019-08-28 03:25 | NUR ---
NURSE NOTES: Pt transferred from Tele. Received report from REINALDO Muñiz. Pt is lying on the bed and awake and forgetful. On BiPAP setting with 12/5 FiO2 80% and SaO2 94% noted. Denied pain at this time. Iv site intact. On Tele monitor with ST and HR: 110's. No open wound noted but multiple bruise on upper body and both arms. Noted abdomen distension with ascites and abdomen hernia. Noted wart-liked lesion on penis. Cleaned Pt and applied lotion and cream. Placed fall precaution. Will continue to monitor any change of condition.
--- NOTE | 2019-08-28 03:30 | NUR ---
Attended rapid response, patient labored breathing hard to arouse on NRB msk 100% FIO2 with SpO2 of 98%. ABG done per [facility] protocol result were as ff: PH 7.12/ CO2 76.8/ PO2 131/ HCO3 24.6. Results reported to Dr. Gomez. Few minutes later patient started waking up responding appropriately. Explained to him that we're gonna place him on a Bipap and he said ok. Placed on 12/5 BR18 FiO2.80. Patient has adequate chest rise and excursion. Will continue to monitor.
--- NOTE | 2019-08-28 04:00 | NUR ---
NURSE NOTES: Pt is resting on the bed and awake and alert and cooperative at this time. 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 Pt cooperative well. Removed bilateral soft wrist restraint. Will continue to monitor any change of condition.
--- NOTE | 2019-08-28 05:29 | NUR ---
Handwritten Documentation Notification All medical record documentation which would otherwise be entered electronically, from rapid response paper form will be contained in the patients handwritten chart.
[2019-08-28] MEDS ORDERED: LORazepam Inj 2mg/ml 1ml IV PRN (05:30)
[2019-08-28] MEDS: Piperacillin/Tazobactam 3.375 GM in NS 110 ML IVPB SCH ×3 (06:07→21:25)
[2019-08-28] MEDS ORDERED: Guaifenesin/DM 10ml syrup ORAL PRN (06:15)
--- NOTE | 2019-08-28 07:26 | NUR ---
HAND-OFF: Report given to REINALDO Shaver. Pt is resting on the bed and no sign of acute distress noted. Tolerated well with current BiPAP setting.
--- NOTE | 2019-08-28 07:27 | NUR ---
RESPIRATORY NOTES: Recieved pt on Bipap 08/19, Rate 18, 80% with PS 7. Patient B/s clear diminished and has SOB. Skin intact, no break down or redness noted. Pt is on facial mask, tape in place. Bipap pluged into red outlet, alarms are on and audible. will continue to monitor throughout the day.
--- NOTE | 2019-08-28 07:30 | NUR ---
NURSE NOTES: Report received from Renzo Rivera RN.Pt restig in bed asleep,tries to open eyes with verbal command,appears drowsy,noted no resp distress on Bipap 12/5 Fio2 80%,O2 sat 97%,no signs of pain or discomfort,s-Tach on the monitor,pt with condom cath draining yellow urine with sediments,SR up x2 HOB elevated,bed lock in lowest position,will continue with plans of care.
--- NOTE | 2019-08-28 08:15 | Diagnostic Imaging Report ---
EXAM: XR Chest, 1 View CLINICAL HISTORY: COPD TECHNIQUE: Frontal view of the chest. COMPARISON: Chest x-ray, 08/26/19 758 FINDINGS: Lungs: Interval worsening diffuse bilateral airspace opacities may be edema or infiltrate. Pleural space: Unremarkable. No pneumothorax. Heart: Unremarkable. No cardiomegaly. Mediastinum: Unremarkable. Bones/joints: Unremarkable. Vasculature: Embolization coils left upper abdomen. IMPRESSION: Interval worsening diffuse bilateral airspace opacities may be edema or infiltrate.
[2019-08-28] MEDS: Vancomycin 750 MG in NS 275 ML IVPB SCH ×3 (08:34→23:41)
--- NOTE | 2019-08-28 08:41 | General Progress Note ---
Assessment/Plan Problem List: (1) AMS (altered mental status) ICD Codes: R41.82 - Altered mental status, unspecified SNOMED: 540077547 Status: stable Assessment/Plan: iv abx check sputum culture monitor cxr follow up cultures try lasix check echo critical and guarded ?ards vs asp pna Subjective ROS Limited/Unobtainable: Yes Constitutional: Reports: no symptoms HEENT: Reports: no symptoms Cardiovascular: Reports: no symptoms Respiratory: Reports: cough, shortness of breath Gastrointestinal/Abdominal: Reports: no symptoms Genitourinary: Reports: no symptoms Neurologic/Psychiatric: Reports: pre-existing deficit Endocrine: Reports: no symptoms Hematologic/Lymphatic: Reports: no symptoms Allergies: Coded Allergies: UNABLE TO ASSESS (Unverified , 08/22/19) All Systems: reviewed and negative except above Subjective worsening hypoxemia and sob. on bipap. cxr with diffuse infiltrates. on multiple iv abx Objective Last 24 Hour Vital Signs Date Time Temp Pulse Resp B/P (MAP) Pulse Ox O2 Delivery O2 Flow Rate FiO2 08/28/19 07:15 104 33 93 Facial 80 08/28/19 05:23 98 33 94 Facial 80 08/28/19 04:00 97.7 105 20 65/57 (60) 94 08/28/19 04:00 80 08/28/19 04:00 111 08/28/19 04:00 Bi-pap 08/28/19 03:27 114 26 98 Bi-Pap 80 08/28/19 03:25 97.7 110 20 101/57 (72) 94 08/28/19 03:25 80 08/28/19 03:20 114 26 98 Facial 80 08/28/19 00:00 98 08/28/19 00:00 97.0 98 18 92/57 (69) 92 08/27/19 21:00 Non-Rebreather 15.0 08/27/19 20:00 91 08/27/19 20:00 98 Nasal Cannula 4.0 08/27/19 20:00 97.0 91 20 96/63 (74) 98 08/27/19 16:00 100 08/27/19 16:00 98.3 113 15 113/72 (86) 89 08/27/19 16:00 104 08/27/19 12:00 110 08/27/19 12:00 98.6 110 18 126/73 (90) 97 08/27/19 10:55 116 08/27/19 10:49 Nasal Cannula 4.0 Intake and Output 08/27/19 08/28/19 19:00 07:00 # Voids 2 Laboratory Tests 08/27/19 19:32: Arterial Blood pH 7.392, Arterial Blood Partial Pressure CO2 42.9, Arterial Blood Partial Pressure O2 109.0H, Arterial Blood HCO3 25.5, Arterial Blood Oxygen Saturation 97.6, Arterial Blood Base Excess 0.5, Giovanny Test Positive 08/28/19 02:47: Arterial Blood pH 7.124*L, Arterial Blood Partial Pressure CO2 76.8*H, Arterial Blood Partial Pressure O2 131.1H, Arterial Blood HCO3 24.6, Arterial Blood Oxygen Saturation 97.2, Arterial Blood Base Excess -5.5L, Giovanny Test Positive 08/28/19 07:37: Arterial Blood pH 7.373, Arterial Blood Partial Pressure CO2 51.9H, Arterial Blood Partial Pressure O2 83.3, Arterial Blood HCO3 29.5H, Arterial Blood Oxygen Saturation 95.1, Arterial Blood Base Excess 3.7H, Giovanny Test Positive 08/28/19 07:45: White Blood Count [Pending], Red Blood Count [Pending], Hemoglobin [Pending], Hematocrit [Pending], Mean Corpuscular Volume [Pending], Mean Corpuscular Hemoglobin [Pending], Mean Corpuscular Hemoglobin Concent [Pending], Red Cell Distribution Width [Pending], Platelet Count [Pending], Mean Platelet Volume [ Pending], Neutrophils (%) (Auto) [Pending], Lymphocytes (%) (Auto) [Pending], Monocytes (%) (Auto) [Pending], Eosinophils (%) (Auto) [Pending], Basophils (%) (Auto) [Pending], Sodium Level [Pending], Potassium Level [Pending], Chloride Level [Pending], Carbon Dioxide Level [Pending], Blood Urea Nitrogen [Pending], Creatinine [Pending], Estimat Glomerular Filtration Rate [Pending], Glucose Level [Pending], Calcium Level [Pending], Vancomycin Level Trough [Pending] Height (Feet): 5 Height (Inches): 8.00 Weight (Pounds): 170 Objective General Appearance: WD/WN, lethargic. on bipap. Neck: supple Cardiovascular: regular rhythm Respiratory/Chest: lungs clear Abdomen: normal bowel sounds, non tender. small reducible periumbilical hernia Edema: no edema noted Arm (L), no edema noted Arm (R), no edema noted Leg (L), no edema noted Leg (R), no edema noted Pedal (L), no edema noted Pedal (R), no edema noted Generalized Henry Leavitt MD Aug 28, 2019 08:41
[2019-08-28 09:00] LABS: HEMATOCRIT 25.4 % (42.0-52.0); HEMOGLOBIN 8.2 G/DL (14.2-18.0); MEAN CORPUSCULAR VOLUME 114 FL (80-99); PLATELET COUNT 81 K/UL (150-450); RED BLOOD COUNT 2.23 M/UL (4.70-6.10); RED CELL DISTRIBUTION WIDTH 15.5 % (11.6-14.8)
[2019-08-28] MEDS: Thiamine 100mg tab ORAL SCH (09:00)
[2019-08-28] MEDS: Spironolactone 25mg tab ORAL SCH (09:00)
[2019-08-28 09:18] LABS: ANION GAP 5 mmol/L (5-15); BLOOD UREA NITROGEN 10 mg/dL (7-18); CALCIUM 7.9 MG/DL (8.5-10.1); CARBON DIOXIDE 29 MMOL/L (21-32); CHLORIDE 109 MMOL/L (98-107); CREATININE 0.8 MG/DL (0.55-1.30); POTASSIUM 3.8 MMOL/L (3.5-5.1); SODIUM 142 MMOL/L (136-145)
--- NOTE | 2019-08-28 09:44 | NUR ---
PT Note Patient has been transferred to [facility]. Will hold PT at this time; resume when new orders are received to resume PT.
--- NOTE | 2019-08-28 10:00 | NUR ---
NURSE NOTES: Pt with orders to keep NPO while on Bipap but medic okay to give.Due PO med unable to give,pt lethargic.
[2019-08-28] MEDS ORDERED: traMADol 50mg tab ORAL PRN (11:15)
--- NOTE | 2019-08-28 13:00 | NUR ---
NURSE NOTES: Pt woke up very confused and agitated,pulled out Bipap,Pt transferred to 244,room near nurse station to be monitored closely.
--- NOTE | 2019-08-28 13:43 | Cardiology Report ---
APPROVED REPORT EXAM: Two-dimensional and M-mode echocardiogram with Doppler and color Doppler. INDICATION Congestive Heart Failure M-Mode DIMENSIONS IVSd1.2 (0.7-1.1cm)Left Atrium (MM)3.3 (1.6-4.0cm) LVDd5.0 (3.5-5.6cm)Aortic Root3.8 (2.0-3.7cm) PWd0.8 (0.7-1.1cm)Aortic Cusp Exc.2.0 (1.5-2.0cm) IVSs1.6 cmEPSS1.0 (>1.0cm) LVDs2.9 (2.5-4.0cm) PWs1.3 cm <Conclusion> Normal left ventricular chamber size, systolic function and wall motion. Left ventricular ejection fraction estimated to be 60 %. Mild left ventricular hypertrophy. No evidence of pericardial effusion. Left atrial size at upper limits of normal. Right cardiac chamber sizes are within normal limits. Focal aortic valve sclerosis with adequate cusp excursion. Thickened mitral valve leaflets with normal excursion. Mild mitral annulus and aortic root calcification. Pulmonic valve not well visualized. Normal tricuspid valve structure. IVC dilated at 2.2 cm with physiological collapse. A color flow and spectral Doppler study was performed and revealed: No aortic regurgitation. No mitral regurgitation. Mitral diastolic velocities suggest mild left ventricular diastolic dysfunction (Grade I). Trace tricuspid regurgitation. Tricuspid systolic velocities suggests peak right ventricular systolic pressure of 28 mmHg. No pulmonic regurgitation present.
[2019-08-28] MEDS ORDERED: NS 275ml ONE ×2 (14:02→16:07)
--- NOTE | 2019-08-28 14:12 | NUR ---
CASE MANAGEMENT:REVIEW 08/28/19 SI:AMS D/T PCP. ENTEROBACTER UTI T 97.7 HR 110 B/P 102/53 SATS 97% ON FACIAL MASK FIO2 100% CL 109 CA 7.9 ABGs pCO2 51.9 HCO3 29.5 BE 3.7 IS: IV ZOSYN Q8HRS IV VANCOMYCIN Q8HRS ALDACTONE PO QD MVI PO QD THIAMINE PO QD HEPARIN SQ Q12 : TELEMETRY STATUS DCP: UNCONFIRMED PLAN: NM VQ SCAN
--- NOTE | 2019-08-28 16:00 | NUR ---
NURSE NOTES: Pt resting quietly in bed no further confusion noted Bipap O2 sat ,Fio2 tapered to 75%
[2019-08-28] MEDS ORDERED: D5NS 1000ml IV ONE (16:09)
--- NOTE | 2019-08-28 19:10 | NUR ---
NURSE NOTES: Pt report received from balaji Boss RN [facility]. pt remains stable. pt is alert and oriented times 2, able to follow simple commands. pt is on pellet machine operator, showing NSR, no acute cardiac distress noted at this moment. pt is on BIPAP satting at 96%, no acute resp distress noted. pt bed is low, locked, armed, bed rails up times 3, call light within reach. will follow plan of care.
--- NOTE | 2019-08-28 19:25 | NUR ---
HAND-OFF: Report given to Jin Bautista RN.
--- NOTE | 2019-08-28 20:13 | NUR ---
NURSE NOTES: Pt blood pressure upon reassessment is 109/57. HR 106. Held off on 40MF lasix due to low bp. will continue to monitor.
[2019-08-29] VITALS: BP 101/53
[2019-08-29 04:00] VITALS: BP 117/49
--- NOTE | 2019-08-29 04:47 | NUR ---
RESPIRATORY NOTE: Called to check on pt. Per Jin RN, pt removed BiPAP & spO2 dropped to 70%, pt is now lethargic/hard to arouse. Pt immediately placed back on his previous BiPAP settings (12/5, backup rate 12, 100%). Pt still hard to arouse, spO2 went up to 93%, other vitals w/in normal limits. Stat ABG done(see lab for results), BiPAP settings changed to 20/5 at this time. Pt tolerating new settings, slowly waking up. Awaiting further MD orders. Will continue to monitor pt.
--- NOTE | 2019-08-29 05:00 | NUR ---
NURSE NOTES: Blood sugar finger stick was 78.
--- NOTE | 2019-08-29 05:00 | NUR ---
NURSE NOTES: Pt found with bipap off.
--- NOTE | 2019-08-29 05:00 | NUR ---
NURSE NOTES: found pt unresponsive to sternal rub. vital signs at 0500 showed BP 83/51, HR 53, O2 sat 40%, temp 98.3, resp 27. summoned Belem MERINO and signals analyst isidoro Thomas to assess pt. Isidoro Thomas and Isidoro Boss RN requested stat ABG to belem MERINO. Belem ran results (refer to 0500 ABG) which showed increased CO2. Bleem RT requested to increase BiPAP to 20/5 100% FIO2 with a follow up ABG at 0600
--- NOTE | 2019-08-29 05:15 | NUR ---
NURSE NOTES: with new bipap settings 20/5 100% Fio2. pt current vital signs are BP 132/74, HR 83, temp aux 98.0F, resp 21, O2 sat 100%. will continue to monitor pt.
--- NOTE | 2019-08-29 05:30 | NUR ---
NURSE NOTES: Called MD [facility] to report pt change in condition. (refer to 0500 notes on 08/29/19). awaiting call back, awaiting new orders.
[2019-08-29] MEDS: Piperacillin/Tazobactam 3.375 GM in NS 110 ML IVPB SCH ×3 (05:45→21:18)
--- NOTE | 2019-08-29 05:45 | NUR ---
NURSE NOTES: Pt became responsive to voice. pt was able to answer correctly how many fingers RN was holding. pt vital signs are BP 121/62, RESP 22, temp aux 98.4F. O2 100% HR 112. viscose cellar charge hand isidoro Thomas aware. taylor MERINO aware. will continue to monitor.
--- NOTE | 2019-08-29 06:15 | NUR ---
NURSE NOTES: requested repeat ABG. spoke with Belem CONNELLY
[2019-08-29 07:00] LABS: HEMOGLOBIN 9.4 G/DL (14.2-18.0); MEAN CORPUSCULAR VOLUME 117 FL (80-99); PLATELET COUNT 127 K/UL (150-450); RED BLOOD COUNT 2.58 M/UL (4.70-6.10); RED CELL DISTRIBUTION WIDTH 16.4 % (11.6-14.8); WHITE BLOOD COUNT 8.7 K/UL (4.8-10.8)
[2019-08-29 07:08] LABS: ALANINE AMINOTRANSFERASE 22 U/L (12-78); ALBUMIN 1.5 G/DL (3.4-5.0); ALBUMIN/GLOBULIN RATIO 0.3 (1.0-2.7); ALKALINE PHOSPHATASE 91 U/L (46-116); ANION GAP 14 mmol/L (5-15); ASPARTATE AMINO TRANSFERASE 102 U/L (15-37); BILIRUBIN,TOTAL 2.9 MG/DL (0.2-1.0); BLOOD UREA NITROGEN 14 mg/dL (7-18); CALCIUM 8.3 MG/DL (8.5-10.1); CARBON DIOXIDE 25 MMOL/L (21-32); CHLORIDE 107 MMOL/L (98-107); CREATININE 1.2 MG/DL (0.55-1.30); POTASSIUM 3.1 MMOL/L (3.5-5.1); SODIUM 146 MMOL/L (136-145)
--- NOTE | 2019-08-29 07:10 | NUR ---
HAND-OFF: Report given to Ab Robb. pt remains stable.
[2019-08-29 07:13] LABS: BILIRUBIN,DIRECT 2.2 MG/DL (0.0-0.3)
--- NOTE | 2019-08-29 07:33 | NUR ---
NURSE NOTES: Received bedside report from Jin Sutton RN. Pt. in bed, sleeping but arousable. No sign of distress. On Bipap cont. 20/5 and Fi O2 at 75% setting. No grimacing noted. Bed in low position, locked. Call light within reach. Will cont. to monitor.
[2019-08-29 08:00] VITALS: BP 88/60
--- NOTE | 2019-08-29 08:19 | General Progress Note ---
Assessment/Plan Problem List: (1) AMS (altered mental status) ICD Codes: R41.82 - Altered mental status, unspecified SNOMED: [id number] Status: stable Assessment/Plan: iv abx check sputum culture monitor cxr and abg follow up cultures try lasix critical and guarded ?ards vs asp pna Subjective ROS Limited/Unobtainable: No Allergies: Coded Allergies: UNABLE TO ASSESS (Unverified , 08/22/19) Subjective on bipap. appears more comfortable. labs noted. Objective Last 24 Hour Vital Signs Date Time Temp Pulse Resp B/P (MAP) Pulse Ox O2 Delivery O2 Flow Rate FiO2 08/29/19 06:45 110 26 100 Facial 100 08/29/19 04:45 111 22 95 Facial 100 08/29/19 04:00 75 08/29/19 04:00 Bi-pap 10.0 08/29/19 04:00 97.0 103 28 117/49 (71) 98 08/29/19 04:00 107 08/29/19 03:18 106 29 94 Facial 100 08/29/19 00:54 117 32 95 Facial 100 08/29/19 00:00 97.9 98 20 101/53 (69) 96 08/29/19 00:00 101 08/29/19 00:00 75 08/29/19 00:00 Bi-pap 10.0 08/28/19 23:22 105 32 95 Facial 75 08/28/19 21:00 101 29 94 Facial 75 08/28/19 20:00 Bi-pap 10.0 08/28/19 20:00 75 08/28/19 20:00 109 08/28/19 20:00 97.7 108 20 108/52 (70) 92 08/28/19 19:50 103 35 91 Facial 75 08/28/19 17:12 101 34 93 Facial 75 08/28/19 16:00 75 08/28/19 16:00 Bi-pap 10.0 08/28/19 16:00 112 08/28/19 16:00 97.0 110 20 105/54 (71) 91 08/28/19 15:05 108 36 95 Facial 75 08/28/19 13:11 108 08/28/19 12:49 107 22 98 Facial 100 08/28/19 12:00 100 08/28/19 12:00 Bi-pap 10.0 08/28/19 11:35 Bi-pap 08/28/19 11:28 97.7 110 20 102/53 (69) 97 08/28/19 10:33 117 36 99 Facial 100 08/28/19 09:24 98 5 95 Facial 80 Intake and Output 08/28/19 08/29/19 19:00 07:00 Intake Total 27.5 ml 110.0 ml Output Total 1301 ml 1001 ml Balance -1273.5 ml -891.0 ml IV Total 27.5 ml 110.0 ml Output Urine Total 1300 ml 1000 ml Stool Total 1 ml 1 ml # Bowel Movements 2 Laboratory Tests 08/29/19 04:34: Arterial Blood pH 7.147*L, Arterial Blood Partial Pressure CO2 62.8*H, Arterial Blood Partial Pressure O2 103.8H, Arterial Blood HCO3 21.2L, Arterial Blood Oxygen Saturation 95.5, Arterial Blood Base Excess -7.9L, Giovanny Test Positive 08/29/19 04:52: White Blood Count 8.7, Red Blood Count 2.58L, Hemoglobin 9.4L, Hematocrit 30.0L , Mean Corpuscular Volume 117H, Mean Corpuscular Hemoglobin 36.6H, Mean Corpuscular Hemoglobin Concent 31.4L, Red Cell Distribution Width 16.4H, Platelet Count 127#L, Mean Platelet Volume 5.9L, Neutrophils (%) (Auto) , Lymphocytes (%) (Auto) , Monocytes (%) (Auto) , Eosinophils (%) (Auto) , Basophils (%) (Auto) , Neutrophils % (Manual) [Pending], Lymphocytes % (Manual) [Pending], Platelet Estimate [Pending], Platelet Morphology [Pending], Sodium Level 146H, Potassium Level 3.1L, Chloride Level 107, Carbon Dioxide Level 25, Anion Gap 14, Blood Urea Nitrogen 14, Creatinine 1.2, Estimat Glomerular Filtration Rate > 60, Glucose Level 75, Calcium Level 8.3L, Total Bilirubin 2.9H , Direct Bilirubin 2.2H, Aspartate Amino Transf (AST/SGOT) 102H, Alanine Aminotransferase (ALT/SGPT) 22, Alkaline Phosphatase 91, Total Protein 6.9, Albumin 1.5L, Globulin 5.4, Albumin/Globulin Ratio 0.3L Height (Feet): 5 Height (Inches): 8.00 Weight (Pounds): 170 Objective General Appearance: WD/WN, lethargic. on bipap. Neck: supple Cardiovascular: regular rhythm Respiratory/Chest: lungs td rhonchi Abdomen: normal bowel sounds, non tender. small reducible periumbilical hernia Edema: no edema noted Arm (L), no edema noted Arm (R), no edema noted Leg (L), no edema noted Leg (R), no edema noted Pedal (L), no edema noted Pedal (R), no edema noted Generalized Henry Leavitt MD Aug 29, 2019 08:19
[2019-08-29] MEDS: Vancomycin 750 MG in NS 275 ML IVPB SCH ×3 (08:21→23:17)
[2019-08-29] MEDS ORDERED: Sodium Chloride for KCL Premix X 4hrs IV SCH (09:00)
[2019-08-29] MEDS: Thiamine 100mg tab ORAL SCH (09:00)
[2019-08-29] MEDS: Spironolactone 25mg tab ORAL SCH (09:00)
[2019-08-29] MEDS: Heparin 5000 units/ml inj SUBQ SCH ×2 (09:30→20:27)
[2019-08-29] MEDS ORDERED: NS 275ml ONE (10:41)
--- NOTE | 2019-08-29 10:45 | Diagnostic Imaging Report ---
EXAM: XR Chest, 1 View CLINICAL HISTORY: COPD TECHNIQUE: Frontal view of the chest. COMPARISON: Chest radiograph on 08/28/2019 FINDINGS: Hardware: None. Lungs/pleura: Persistent opacities throughout the lungs with slightly improved aeration in the upper portions of the lungs. Bilateral pleural effusions are not excluded. Heart/mediastinum: Normal. No cardiomegaly. Soft tissues: Unremarkable. Bones: No acute fracture. Upper abdomen: Embolization coils in the left upper quadrant. IMPRESSION: Persistent opacities throughout the lungs with slightly improved aeration in the upper portions of the lungs. Bilateral pleural effusions are not excluded.
[2019-08-29 12:00] VITALS: BP 130/55
[2019-08-29 16:00] VITALS: BP 107/62
--- NOTE | 2019-08-29 18:51 | NUR ---
RESPIRATORY NOTE: Received pt on BiPAP 20/5, back up rate 12, 80%. Pt on a Facial mask, skin intact, no redness/breakdowns noted. Foam tape applied on pt's nosebridge/cheeks to porevent mask irritations. Pt is alert/awake, follows commands. b/S td. diminished, nonproductive cough. BiPAP plugged into red outlet, alarms on & audible. Pt in no apparent distress at this time. Will continue plan of care.
--- NOTE | 2019-08-29 19:05 | NUR ---
NURSE NOTES: pt report received from elizabeth Rn [facility]. pt remains stable. pt is alert and oriented times 3, able to follow commands. pt is on bipap satting at 96%, no acute signs symptoms of resp distress noted at this time. pt is on youth nutritional monitor showing ST with HR of 109, MD melvin aware. no other signs symptoms of cardiac distress noted. pt bed is low, locked, armed, call light within reach, bed rails up times 3. will follow plan of care.
--- NOTE | 2019-08-29 19:09 | NUR ---
HAND-OFF: Report given to Jin Sutton RN. Pt. remain stable.
--- NOTE | 2019-08-29 19:10 | NUR ---
NURSE NOTES: Spoke in person with MD Gomez about pt being found unconscious at 0500 in the morning 08/29/19, with bipap off. (refer to 0500 08/29/19 notes for details of event.) MD gomez stated to place non behavioral restraints order under MD Leavitt if needed. will continue to monitor pts status. will continue to monitor if need for non behavioral restraint order.
[2019-08-29 20:00] VITALS: BP 101/56
--- NOTE | 2019-08-29 20:28 | NUR ---
NURSE NOTES: Lasix 20Mg IV given out of 40MG due to pt blood pressure 99/46, Hr 111. and potassium 3.1 will continue to asses pt/
--- NOTE | 2019-08-29 20:36 | NUR ---
NURSE NOTES: wasted 20Mg lasix IV in pyxis.
--- NOTE | 2019-08-29 20:49 | NUR ---
NURSE NOTES: messaged MD melvin about pt on lasix 40MG IV twice a day. reported pt has at blood pressure of 100/50, 90/50 with potassium lab value of 3.1. requested 40 MG K dur PO. awaiting call back, awaiting new orders.
--- NOTE | 2019-08-29 20:50 | NUR ---
NURSE NOTES: messaged MD Leavitt about pt on lasix 40MG IV twice a day. reported pt has at blood pressure of 100/50, 90/50 with potassium lab value of 3.1. requested 40 MG K dur PO. awaiting call back, awaiting new orders.
--- NOTE | 2019-08-29 20:52 | NUR ---
NURSE NOTES: Md Leavitt messaged back with an order of K galina 40 MG PO times 1 now. will follow orders.
--- NOTE | 2019-08-29 20:56 | NUR ---
NURSE NOTES: pt had 4 bags, total of 40MEQ potassium IV given today 08/29/19. 40 MG potassium K DUR PO will be held off.
[2019-08-30] VITALS: BP 99/59
[2019-08-30 04:00] VITALS: BP 114/64
[2019-08-30] MEDS: Piperacillin/Tazobactam 3.375 GM in NS 110 ML IVPB SCH ×3 (05:04→21:31)
--- NOTE | 2019-08-30 07:00 | NUR ---
RESPIRATORY NOTES: Received Patient on BIPAP 20/5 PS +15 FIO2 100% RR 12. Patient currently on facial mask with tape in place. No skin breakdown noticed. Patient is currently alert and awake. Patient desaturates quickly while off of BIPAP. BIPAP plugged into red outlet. Alarms are on and audible. Will continue to monitor throughout the day.
--- NOTE | 2019-08-30 07:14 | NUR ---
HAND-OFF: Report given to Corrine Stanley RN. pt remains stable.
[2019-08-30 08:00] VITALS: BP 106/60
[2019-08-30 08:04] LABS: ALANINE AMINOTRANSFERASE 20 U/L (12-78); ALBUMIN 1.2 G/DL (3.4-5.0); ALBUMIN/GLOBULIN RATIO 0.3 (1.0-2.7); ALKALINE PHOSPHATASE 77 U/L (46-116); ANION GAP 5 mmol/L (5-15); ASPARTATE AMINO TRANSFERASE 105 U/L (15-37); BILIRUBIN,TOTAL 2.3 MG/DL (0.2-1.0); BLOOD UREA NITROGEN 17 mg/dL (7-18); CALCIUM 7.9 MG/DL (8.5-10.1); CARBON DIOXIDE 32 MMOL/L (21-32); CHLORIDE 109 MMOL/L (98-107); POTASSIUM 2.8 MMOL/L (3.5-5.1); SODIUM 145 MMOL/L (136-145)
[2019-08-30 08:05] LABS: BILIRUBIN,DIRECT 1.7 MG/DL (0.0-0.3)
--- NOTE | 2019-08-30 08:10 | NUR ---
NURSE NOTES: received pt in the bed, awake, alert, vital signs stable, no co pain, no SOB, pt on Bipap 20/5, FIO2 100%, NPO, skin warm and dry to touch, condom catheter with yellow urine, skin intact, K 2,8, dr. Leavitt aware, bed in low position, call light within reach.
--- NOTE | 2019-08-30 08:15 | NUR ---
Spoke with REINALDO Quintanilla regarding V/Q Scan. Per Corrine, At this time pt is unable to tolerate removing Bipap to complete the ventilation portion of the study. Will follow up
[2019-08-30] MEDS: Spironolactone 25mg tab ORAL SCH (09:04)
[2019-08-30] MEDS: Thiamine 100mg tab ORAL SCH (09:04)
[2019-08-30] MEDS: Heparin 5000 units/ml inj SUBQ SCH ×2 (09:08→21:00)
--- NOTE | 2019-08-30 09:34 | General Progress Note ---
Assessment/Plan Problem List: (1) AMS (altered mental status) ICD Codes: R41.82 - Altered mental status, unspecified SNOMED: 790513852 Status: stable Assessment/Plan: iv abx check sputum culture monitor cxr and abg follow up cultures diuresis abg and cxr critical and guarded Subjective ROS Limited/Unobtainable: No Constitutional: Reports: malaise, weakness HEENT: Reports: no symptoms Cardiovascular: Reports: no symptoms Respiratory: Reports: cough, shortness of breath Gastrointestinal/Abdominal: Reports: no symptoms Genitourinary: Reports: no symptoms Neurologic/Psychiatric: Reports: pre-existing deficit Endocrine: Reports: no symptoms Hematologic/Lymphatic: Reports: no symptoms Allergies: Coded Allergies: UNABLE TO ASSESS (Unverified , 08/22/19) All Systems: reviewed and negative except above Subjective on bipap. appears more comfortable. labs noted. on iv lasix and iv abx. desaturates off bipap. Objective Last 24 Hour Vital Signs Date Time Temp Pulse Resp B/P (MAP) Pulse Ox O2 Delivery O2 Flow Rate FiO2 08/30/19 08:59 106 32 94 Facial 100 08/30/19 08:00 90 08/30/19 08:00 98.0 106 32 106/60 (75) 94 08/30/19 08:00 Bi-pap 10.0 08/30/19 07:11 99 39 94 Facial 100 08/30/19 05:10 111 32 89 Facial 100 08/30/19 04:00 97.9 105 28 114/64 (81) 95 08/30/19 04:00 Bi-pap 10.0 08/30/19 04:00 90 08/30/19 04:00 106 08/30/19 02:59 107 24 92 Facial 90 08/30/19 01:08 103 29 93 Facial 80 08/30/19 00:00 Bi-pap 10.0 08/30/19 00:00 110 08/30/19 00:00 97.1 111 29 99/59 (72) 95 08/30/19 00:00 80 08/29/19 23:15 111 32 94 Facial 80 08/29/19 21:03 108 32 96 Facial 80 08/29/19 20:00 80 08/29/19 20:00 Bi-pap 10.0 08/29/19 20:00 109 08/29/19 20:00 97.5 104 28 101/56 (71) 96 08/29/19 18:48 110 38 93 Facial 80 08/29/19 16:41 111 34 90 Facial 70 08/29/19 16:00 97.5 108 29 107/62 (77) 95 08/29/19 16:00 Bi-pap 10.0 08/29/19 16:00 75 08/29/19 15:27 112 08/29/19 15:06 107 23 98 Facial 80 08/29/19 12:39 110 23 97 Facial 90 08/29/19 12:00 Bi-pap 10.0 08/29/19 12:00 75 08/29/19 12:00 97.7 107 24 130/55 (80) 98 08/29/19 11:30 110 08/29/19 10:30 109 32 95 Facial 90 Intake and Output 08/29/19 08/30/19 19:00 07:00 Intake Total 412.500 ml Output Total 1375 ml 550 ml Balance -1375 ml -137.500 ml IV Total 412.500 ml Output Urine Total 1375 ml 550 ml Laboratory Tests 08/30/19 07:00: Sodium Level 145, Potassium Level 2.8L, Chloride Level 109H, Carbon Dioxide Level 32, Anion Gap 5, Blood Urea Nitrogen 17, Creatinine 1.0, Estimat Glomerular Filtration Rate > 60, Glucose Level 98, Calcium Level 7.9L, Magnesium Level 1.1L, Total Bilirubin 2.3H, Direct Bilirubin 1.7H, Aspartate Amino Transf (AST/SGOT) 105H, Alanine Aminotransferase (ALT/SGPT) 20, Alkaline Phosphatase 77, Total Protein 5.9L, Albumin 1.2L, Globulin 4.7, Albumin/ Globulin Ratio 0.3L, Vancomycin Level Trough 25.4H Height (Feet): 5 Height (Inches): 8.00 Weight (Pounds): 170 Objective General Appearance: WD/WN, lethargic. on bipap. Neck: supple Cardiovascular: regular rhythm Respiratory/Chest: lungs td rhonchi Abdomen: normal bowel sounds, non tender. small reducible periumbilical hernia Edema: no edema noted Arm (L), no edema noted Arm (R), no edema noted Leg (L), no edema noted Leg (R), no edema noted Pedal (L), no edema noted Pedal (R), no edema noted Generalized Henry Leavitt MD Aug 30, 2019 09:34
--- NOTE | 2019-08-30 11:16 | NUR ---
RESPIRATORY NOTES: ABG results were good so I attempted to place patient on NON REBREATHER MASK 100% FIO2 12LPM. Patient immediately desaturated and could not maintain saturations above 75% on NON REBREATHER MASK. Placed back onto BIPAP previous settings.
--- NOTE | 2019-08-30 11:25 | NUR ---
NURSE NOTES: dr. Gomez aware about ABG result.
--- NOTE | 2019-08-30 11:33 | NUR ---
NURSE NOTES: ABG done, try to put pt on Non-Rebreather mask, o2 sat drop to 74%, pt back to Bipap.
--- NOTE | 2019-08-30 11:55 | NUR ---
CASE MANAGEMENT:REVIEW 08/30/19 SI:AMS D/T PCP. ENTEROBACTER UTI RESPIRATORY FAILURE 98.0 106 32 106/60 94% ON BIPAP 10L @ 90% FIO2 H/H-9.4/30.0 PLT-127 K-2.8 MAG-1.1 IS: IV ZOSYN Q8HRS IV VANCOMYCIN Q8HRS IV LASIX Q12 HEPARIN SQ Q12 K-DUR PO X1 : STEP DOWN UNIT PLAN: NM VQ SCAN START IV LASIX AND CONTINUE ALDACTONE
[2019-08-30 11:58] VITALS: BP 123/60
--- NOTE | 2019-08-30 13:00 | NUR ---
NURSE NOTES: report given to Patti NAJERA, pt still on Bipap, vital signs stable, no co pain.
--- NOTE | 2019-08-30 13:10 | NUR ---
NURSE NOTES: Received report from Corrine Quintanilla RN. Observed patient in bed, asleep, opens eyes to verbal stimuli. On cont. BiPAP as ordered with previous settings, no acute respiratory distress noted at this time. school lunch monitor shows sinus tachycardia with HR 105. Right FA IV intact and patent. External catheter intact and draining well to gravity. Safety precautions in place, bed locked, alarmed, and in lowest position, side rails up x3, and call light left within reach. Will continue plan of care and will continue to monitor patient.
--- NOTE | 2019-08-30 13:38 | NUR ---
RADIOLOGY DEPT., CHEST X-RAY DONE.-P.DYE
--- NOTE | 2019-08-30 14:03 | NUR ---
*-* INSURANCE *-* ALL AVAILABLE CLINICALS AND REVIEWS HAVE BEEN FAXED TO: CARL[facility] REESE: DEEPAK P- [phone] F- [phone]...........REVIEW/CLINICAL
[2019-08-30 16:00] VITALS: BP 118/60
--- NOTE | 2019-08-30 16:41 | Diagnostic Imaging Report ---
Indication: Dyspnea, cough Technique: One view of the chest Comparison: 08/29/2019 Findings: Bilateral diffuse interstitial and airspace disease persists, unchanged. No definite effusions. The heart size is normal. Impression: Unchanged, over one day, findings as above.
[2019-08-30] MEDS: Vancomycin 500mg/D5W 110ml IVPB SCH ×2 (17:40)
--- NOTE | 2019-08-30 19:00 | NUR ---
HAND-OFF: Report given to REINALDO Muller. Patient remains on BiPAP in stable condition.
--- NOTE | 2019-08-30 19:30 | NUR ---
NURSE NOTES: Received Pt is resting on the bed and awake and alert. On BIPAP 12/5 and FiO2 100% and SaO2 100% noted. IV site intact and no sign of infiltration noted. On Tele monitor with SR. On Condom cath and in placed. Placed fall precaution. Will continue to care plan. Addendum: 08/30/19 at 2007 by TALI SIMMONS RN RN charting error. Change BIPAP setting from / to 01/02
[2019-08-30 20:00] VITALS: BP 115/57
--- NOTE | 2019-08-30 20:06 | NUR ---
RESPIRATORY NOTE: Received pt on BiPAP 20/5, back up rate 12, 100%. Pt on a Facial mask, skin intact, no redness/breakdowns noted. Foam tape applied on pt's nosebridge/cheeks to porevent mask irritations. Pt is alert/awake, follows commands. b/S td. diminished, nonproductive cough. BiPAP plugged into red outlet, alarms on & audible. FiO2 titrated to 80% at this time, RN aware. Pt in no apparent distress at this time. Will continue plan of care.
[2019-08-31] VITALS: BP 112/60
[2019-08-31] MEDS: Vancomycin 500mg/D5W 110ml IVPB SCH ×6 (01:38→18:04)
[2019-08-31 04:00] VITALS: BP 96/57
[2019-08-31 05:18] LABS: ALANINE AMINOTRANSFERASE 26 U/L (12-78); ALBUMIN 1.2 G/DL (3.4-5.0); ALBUMIN/GLOBULIN RATIO 0.2 (1.0-2.7); ALKALINE PHOSPHATASE 85 U/L (46-116); ANION GAP 6 mmol/L (5-15); ASPARTATE AMINO TRANSFERASE 97 U/L (15-37); BILIRUBIN,TOTAL 2.7 MG/DL (0.2-1.0); BLOOD UREA NITROGEN 22 mg/dL (7-18); CALCIUM 8.2 MG/DL (8.5-10.1); CARBON DIOXIDE 32 MMOL/L (21-32); CHLORIDE 108 MMOL/L (98-107); CREATININE 1.1 MG/DL (0.55-1.30); POTASSIUM 2.8 MMOL/L (3.5-5.1); SODIUM 146 MMOL/L (136-145)
[2019-08-31] MEDS: Piperacillin/Tazobactam 3.375 GM in NS 110 ML IVPB SCH ×3 (05:35→21:55)
[2019-08-31 06:11] LABS: BILIRUBIN,DIRECT 1.7 MG/DL (0.0-0.3)
--- NOTE | 2019-08-31 07:29 | NUR ---
HAND-OFF: Report given to Cezar Walton. Pt is resting on the bed and no sign of acute distress noted.
--- NOTE | 2019-08-31 07:53 | NUR ---
RESPIRATORY NOTE: Received pt on BIPAP 20/5, back up rate 12, 100%. Pt is on full face mask, no redness or skin breakdown. Breath sounds bilateral diminished. BIPAP plugged to red outlet. Alarms are on and audible. Will continue to monitor.
[2019-08-31 08:00] VITALS: BP 98/50
--- NOTE | 2019-08-31 08:03 | General Progress Note ---
Assessment/Plan Problem List: (1) AMS (altered mental status) ICD Codes: R41.82 - Altered mental status, unspecified SNOMED: [id number] Status: stable Assessment/Plan: iv abx check sputum culture monitor cxr and abg follow up cultures diuresis abg and cxr critical and guarded Subjective ROS Limited/Unobtainable: No Constitutional: Reports: malaise, weakness HEENT: Reports: no symptoms Cardiovascular: Reports: no symptoms Respiratory: Reports: cough, shortness of breath Gastrointestinal/Abdominal: Reports: no symptoms Genitourinary: Reports: no symptoms Neurologic/Psychiatric: Reports: no symptoms Endocrine: Reports: no symptoms Hematologic/Lymphatic: Reports: no symptoms Allergies: Coded Allergies: UNABLE TO ASSESS (Unverified , 08/22/19) All Systems: reviewed and negative except above Subjective on bipap. appears more comfortable. labs noted. on iv lasix and iv abx. desaturates off bipap. Objective Last 24 Hour Vital Signs Date Time Temp Pulse Resp B/P (MAP) Pulse Ox O2 Delivery O2 Flow Rate FiO2 08/31/19 07:53 99 32 98 Full Face 100 08/31/19 05:16 94 32 91 Full Face 100 08/31/19 04:00 104 08/31/19 04:00 Bi-pap 08/31/19 04:00 98.8 105 27 96/57 (70) 97 08/31/19 04:00 100 08/31/19 03:38 104 31 96 Full Face 100 08/31/19 03:00 100 08/31/19 00:53 102 30 96 Full Face 80 08/31/19 00:00 98.2 105 27 112/60 (77) 97 08/31/19 00:00 Bi-pap 08/31/19 00:00 90 08/31/19 00:00 80 08/30/19 22:58 103 31 94 Full Face 80 08/30/19 21:20 107 23 95 Facial 80 08/30/19 20:04 108 30 99 Facial 80 08/30/19 20:00 98.2 109 28 115/57 (76) 100 08/30/19 20:00 100 08/30/19 20:00 110 08/30/19 20:00 Bi-pap 08/30/19 17:11 111 24 97 Facial 100 08/30/19 16:00 98.4 114 28 118/60 (79) 100 08/30/19 16:00 100 08/30/19 16:00 Bi-pap 08/30/19 15:08 109 08/30/19 15:02 116 28 94 Facial 80 08/30/19 13:24 108 38 97 Facial 100 08/30/19 12:40 109 08/30/19 12:00 Bi-pap 10.0 08/30/19 12:00 100 08/30/19 11:58 97.9 108 32 123/60 (81) 97 08/30/19 11:04 97 42 99 Facial 100 08/30/19 08:59 106 32 94 Facial 100 Intake and Output 08/30/19 08/31/19 19:00 07:00 Intake Total 470.32063 ml 247.5 ml Output Total 1900 ml 1300 ml Balance -1429.78381 ml -1052.5 ml Intake Oral 200 ml IV Total 270.21739 ml 247.5 ml Output Urine Total 1900 ml 1300 ml Laboratory Tests 08/30/19 10:45: Arterial Blood pH 7.457H, Arterial Blood Partial Pressure CO2 44.0, Arterial Blood Partial Pressure O2 89.7, Arterial Blood HCO3 30.4H, Arterial Blood Oxygen Saturation 96.4, Arterial Blood Base Excess 5.9H, Giovanny Test Positive 08/31/19 03:20: Sodium Level 146H, Potassium Level 2.8L, Chloride Level 108H, Carbon Dioxide Level 32, Anion Gap 6, Blood Urea Nitrogen 22H, Creatinine 1.1, Estimat Glomerular Filtration Rate > 60, Glucose Level 88, Calcium Level 8.2L, Total Bilirubin 2.7H, Direct Bilirubin 1.7H, Aspartate Amino Transf (AST/SGOT) 97H, Alanine Aminotransferase (ALT/SGPT) 26, Alkaline Phosphatase 85, Total Protein 6.0L, Albumin 1.2L, Globulin 4.8, Albumin/Globulin Ratio 0.2L Height (Feet): 5 Height (Inches): 8.00 Weight (Pounds): 143 Objective General Appearance: WD/WN, lethargic. on bipap. Neck: supple Cardiovascular: regular rhythm Respiratory/Chest: lungs td rhonchi Abdomen: normal bowel sounds, non tender. small reducible periumbilical hernia Edema: no edema noted Arm (L), no edema noted Arm (R), no edema noted Leg (L), no edema noted Leg (R), no edema noted Pedal (L), no edema noted Pedal (R), no edema noted Generalized Henry Leavitt MD Aug 31, 2019 08:03
--- NOTE | 2019-08-31 08:10 | NUR ---
NURSE NOTES: received pt in the bed, awake, alert, oriented, vital signs stable, no co pain, pt on Bipap 20/5, FIO2 100%, skin warm and dry to touch, intact, abdomen distended, condom catheter with isabel urine, K 2.8, aw are, bed in low position, call light within reach.
[2019-08-31] MEDS: Thiamine 100mg tab ORAL SCH (08:39)
[2019-08-31] MEDS: Spironolactone 25mg tab ORAL SCH (08:39)
[2019-08-31] MEDS: Heparin 5000 units/ml inj SUBQ SCH ×2 (08:55→21:00)
--- NOTE | 2019-08-31 10:30 | NUR ---
RESPIRATORY NOTE: Pt dessat to 85%, ABG drawn. Per Dr. Leavitt, change EPAP to 10 from 5. SaO2 94%. REINALDO greco.
[2019-08-31] MEDS: Solu-MEDROL 125mg Inj IVP SCH (10:37)
--- NOTE | 2019-08-31 11:00 | NUR ---
NURSE NOTES: O2 sat drop to 89%, ABG done, notified dr. Leavitt, changed setting of Bipap to 20/10, continue monitoring.
[2019-08-31 12:00] VITALS: BP 117/58
--- NOTE | 2019-08-31 15:51 | NUR ---
SPEECH PATHOLOGY: SPEECH PATHOLOGY: SWALLOW STATUS/WEEKLY SUMMARY/ D/C SUMMARY S/O: PATIENT CONTINUES TO REQUIRE SUPPORT OF BIPAP AND EFFORTS TO WEAN HIM HAVE GENERALLY BEEN UNSUCCESSFUL, A RESULT, IT IS NOT SAFE TO FEED HIM. WHEN THE BIPAP MASKED IS REMOVED MOMENTARILY TO GIVE THE PATIENT WATER HE DESATS IMMEDIATELY. A/P: D/C FROM [facility] [employer] WHEN PATIENT ASKED ABOUT HOW HE WOULD LIKE TO BE NOURISHED: HE SAID "LET THEM DO WHATEVER THEY NEED TO DO FOR ME" IN REFERENCE TO PEG FEEDING. NO FURTHER [facility] [employer] APPEAR TO BE NEEDED AT THIS TIME. CONTINUE NPO STATUS DUE TO HIGH RISK OF ASPIRATION.
[2019-08-31 16:00] VITALS: BP 91/60
[2019-08-31] MEDS ORDERED: NS 275ml ONE (16:15)
[2019-08-31] MEDS ORDERED: Tubing IV Secondary IV ONE (16:15)
[2019-08-31] MEDS ORDERED: NS 500ML ONE (16:15)
--- NOTE | 2019-08-31 16:29 | NUR ---
CASE MANAGEMENT:REVIEW 08/31/19 SI:AMS D/T PCP. ENTEROBACTER UTI RESPIRATORY FAILURE 98.6 102 34 117/58 94% ON BIPAP NA+ 146 K+ 2.8 CL-108 BUN 22 CA+8.2 TBIL 2.7 DBIL 1.7 AST 97 ABG: pH 7.498 pCO2 54.5 HCO3 28.8 O2 SAT 88.3 IS: IV MG SULFATE X4 BAGS K-DUR PO X2 IV ZOSYN Q8HRS IV VANCOMYCIN Q8HRS IV LASIX Q12 IV ALDACTONE PO QD IV SOLU-MEDROL QD HEPARIN SQ Q12 K-DUR PO X1 : STEP DOWN UNIT PLAN: CHECK SP CX IV ABX NM VQ SCAN
--- NOTE | 2019-08-31 19:01 | NUR ---
HAND-OFF: Report given to IRIS NAJERA, still on Bipap, o2 sat 98%.
--- NOTE | 2019-08-31 19:30 | NUR ---
NURSE NOTES: Received Pt is resting on the bed and awake and alert and confused. On BIPAP 20/10 and FiO2 100% and SaO2 99% noted. IV site intact and no sign of infiltration noted. On Tele monitor with SR. On Condom cath but removed by Pt. Applied condom cath and remind Pt regarding do not remove condom cath. Placed fall precaution. Will continue to care plan.
--- NOTE | 2019-08-31 19:30 | NUR ---
RESPIRATORY NOTE: RECEIVED PT ON CURRENT BIPAP SETTINGS: 20/10 BUR 12 FIO2 100%. PT JEFFY CURRENT BIPAP SETTINGS WELL. NO REDNESS OR SORE NOTED. ALARMS ON AND AUDIBLE. BIPAP PLUGGED INTO RED OUTLET. AMBU BAG AT BEDSIDE. WILL CONTINUE MONITORING PT CLOSELY.
[2019-08-31 20:00] VITALS: BP 102/61
[2019-09-01] VITALS: BP 108/60
[2019-09-01] MEDS: Vancomycin 500mg/D5W 110ml IVPB SCH ×6 (01:47→17:33)
[2019-09-01 04:00] VITALS: BP 95/50
[2019-09-01 05:07] LABS: HEMATOCRIT 26.9 % (42.0-52.0); HEMOGLOBIN 8.8 G/DL (14.2-18.0); MEAN CORPUSCULAR VOLUME 110 FL (80-99); PLATELET COUNT 60 K/UL (150-450); RED BLOOD COUNT 2.44 M/UL (4.70-6.10); RED CELL DISTRIBUTION WIDTH 15.5 % (11.6-14.8); WHITE BLOOD COUNT 11.3 K/UL (4.8-10.8)
[2019-09-01] MEDS: Piperacillin/Tazobactam 3.375 GM in NS 110 ML IVPB SCH ×3 (05:14→22:24)
[2019-09-01 05:52] LABS: ALANINE AMINOTRANSFERASE 27 U/L (12-78); ALBUMIN 1.3 G/DL (3.4-5.0); ALBUMIN/GLOBULIN RATIO 0.3 (1.0-2.7); ALKALINE PHOSPHATASE 89 U/L (46-116); ANION GAP 2 mmol/L (5-15); ASPARTATE AMINO TRANSFERASE 79 U/L (15-37); BILIRUBIN,TOTAL 2.3 MG/DL (0.2-1.0); BLOOD UREA NITROGEN 25 mg/dL (7-18); CALCIUM 8.3 MG/DL (8.5-10.1); CARBON DIOXIDE 35 MMOL/L (21-32); CHLORIDE 108 MMOL/L (98-107); CREATININE 1.1 MG/DL (0.55-1.30); POTASSIUM 2.9 MMOL/L (3.5-5.1); SODIUM 145 MMOL/L (136-145)
[2019-09-01 06:06] LABS: BILIRUBIN,DIRECT 1.5 MG/DL (0.0-0.3)
--- NOTE | 2019-09-01 07:07 | General Progress Note ---
Assessment/Plan Problem List: (1) AMS (altered mental status) ICD Codes: R41.82 - Altered mental status, unspecified SNOMED: [id number] Status: stable Assessment/Plan: iv abx id eval bipap follow up cxr diuresis critical and guarded Subjective ROS Limited/Unobtainable: No Constitutional: Reports: malaise, weakness HEENT: Reports: no symptoms - ` Cardiovascular: Reports: no symptoms Respiratory: Reports: shortness of breath Gastrointestinal/Abdominal: Reports: no symptoms Genitourinary: Reports: no symptoms Neurologic/Psychiatric: Reports: pre-existing deficit Endocrine: Reports: no symptoms Hematologic/Lymphatic: Reports: no symptoms Allergies: Coded Allergies: UNABLE TO ASSESS (Unverified , 08/22/19) All Systems: reviewed and negative except above Subjective on bipap. appears more comfortable. labs noted. on iv lasix and iv abx. desaturates off bipap. Objective Last 24 Hour Vital Signs Date Time Temp Pulse Resp B/P (MAP) Pulse Ox O2 Delivery O2 Flow Rate FiO2 09/01/19 05:05 78 21 98 Full Face 100 09/01/19 04:00 100 09/01/19 04:00 77 09/01/19 04:00 97.7 84 26 95/50 (65) 98 09/01/19 04:00 Bi-pap 09/01/19 02:40 82 21 98 Full Face 100 09/01/19 00:57 83 21 98 Full Face 100 09/01/19 00:00 Bi-pap 09/01/19 00:00 97.5 95 28 108/60 (76) 99 09/01/19 00:00 89 09/01/19 00:00 100 08/31/19 23:30 92 22 100 Full Face 100 08/31/19 21:38 94 22 100 Full Face 100 08/31/19 20:00 100 08/31/19 20:00 97.8 94 28 102/61 (75) 99 08/31/19 20:00 Bi-pap 08/31/19 20:00 89 08/31/19 19:30 98 24 98 Full Face 100 08/31/19 17:30 92 30 98 Full Face 100 08/31/19 16:00 100 08/31/19 16:00 85 08/31/19 16:00 98.2 90 28 91/60 (70) 99 08/31/19 16:00 Bi-pap 08/31/19 15:30 95 27 98 Full Face 100 08/31/19 13:25 89 32 96 Full Face 100 08/31/19 12:00 98.6 102 34 117/58 (77) 94 08/31/19 12:00 Bi-pap 08/31/19 12:00 103 08/31/19 12:00 100 08/31/19 10:30 76 32 94 Full Face 100 08/31/19 08:51 89 38 97 Full Face 100 08/31/19 08:00 100 08/31/19 08:00 Bi-pap 08/31/19 08:00 97 08/31/19 08:00 98.1 100 34 98/50 (66) 100 08/31/19 07:53 99 32 98 Full Face 100 Intake and Output 08/31/19 09/01/19 18:59 06:59 Intake Total 975.0 ml 730.0 ml Output Total 1400 ml 1300 ml Balance -425.0 ml -570.0 ml Intake Oral 700 ml 400 ml IV Total 275.0 ml 330.0 ml Output Urine Total 1400 ml 1300 ml # Bowel Movements 1 Laboratory Tests 08/31/19 09:46: Arterial Blood pH 7.496H, Arterial Blood Partial Pressure CO2 38.1, Arterial Blood Partial Pressure O2 54.5L, Arterial Blood HCO3 28.8H, Arterial Blood Oxygen Saturation 88.3*L, Arterial Blood Base Excess 5.2H, Giovanny Test Positive 08/31/19 17:15: Vancomycin Level Trough 18.5H 09/01/19 03:45: White Blood Count 11.3H, Red Blood Count 2.44L, Hemoglobin 8.8L, Hematocrit 26.9L, Mean Corpuscular Volume 110H, Mean Corpuscular Hemoglobin 36.0H, Mean Corpuscular Hemoglobin Concent 32.6, Red Cell Distribution Width 15.5H, Platelet Count 60L, Mean Platelet Volume 7.5, Neutrophils (%) (Auto) , Lymphocytes (%) (Auto) , Monocytes (%) (Auto) , Eosinophils (%) (Auto) , Basophils (%) (Auto) , Neutrophils % (Manual) [Pending], Lymphocytes % (Manual) [Pending], Platelet Estimate [Pending], Platelet Morphology [Pending], Sodium Level 145, Potassium Level 2.9L, Chloride Level 108H, Carbon Dioxide Level 35H, Anion Gap 2L, Blood Urea Nitrogen 25H, Creatinine 1.1, Estimat Glomerular Filtration Rate > 60, Glucose Level 123H, Calcium Level 8.3L, Magnesium Level 1.5L, Total Bilirubin 2.3H, Direct Bilirubin 1.5H, Aspartate Amino Transf (AST/ SGOT) 79H, Alanine Aminotransferase (ALT/SGPT) 27, Alkaline Phosphatase 89, Total Protein 6.3L, Albumin 1.3L, Globulin 5.0, Albumin/Globulin Ratio 0.3L Height (Feet): 5 Height (Inches): 8.00 Weight (Pounds): 172 Objective General Appearance: WD/WN, lethargic. on bipap. Neck: supple Cardiovascular: regular rhythm Respiratory/Chest: lungs td rhonchi Abdomen: normal bowel sounds, non tender. small reducible periumbilical hernia Edema: no edema noted Arm (L), no edema noted Arm (R), no edema noted Leg (L), no edema noted Leg (R), no edema noted Pedal (L), no edema noted Pedal (R), no edema noted Generalized Henry Leavitt MD Sep 01, 2019 07:07
--- NOTE | 2019-09-01 07:27 | NUR ---
HAND-OFF: Report given to REINALDO Shoemaker. Pt is resting on the bed and no sign of acute distress noted. .
--- NOTE | 2019-09-01 07:45 | NUR ---
NURSE NOTES: Patient refused to use the bipap at this time. RT placed patient on non rebreather mask. With oxygen saturation of 90%. Will continue to monitor. Will assist patient with breakfast meal.
[2019-09-01 08:00] VITALS: BP 96/56
[2019-09-01] MEDS: Thiamine 100mg tab ORAL SCH (08:08)
[2019-09-01] MEDS: Spironolactone 25mg tab ORAL SCH (08:08)
[2019-09-01] MEDS: Solu-MEDROL 125mg Inj IVP SCH (08:08)
[2019-09-01] MEDS: Heparin 5000 units/ml inj SUBQ SCH ×2 (08:31→20:14)
--- NOTE | 2019-09-01 09:28 | NUR ---
RADIOLOGY DEPT., CHEST X-RAY COMPLETED BY CR SR
[2019-09-01 12:00] VITALS: BP 93/49
--- NOTE | 2019-09-01 13:16 | NUR ---
RD ASSESSMENT & RECOMMENDATIONS SEE CARE ACTIVITY FOR COMPLETE ASSESSMENT DAILY ESTIMATED NEEDS: Needs based on Liver, Pulmonary 72.2kg 25-30 kcals/kg 1168-7323 total kcals 1-1.5 g protein/kg 72-108 g total protein Fluid per MD NUTRITION DIAGNOSIS: * Decreased sodium and fat needs r/t clinical status, ascites, as evidenced by s/p paracentesis, elev LFT's, elev T bili * Swallowing difficulty R/T dysphagia, respiratory status as evidenced by pt on [facility] soft finely chopped texture, mostly on BIPAP, on non-rebreather during meals. CURRENT DIET:Cardiac, mech soft finely chopped PO DIET RECOMMENDATIONS: Low FAt/ Low Na diet / texture per TAXATION INSPECTOR ADDITIONAL RECOMMENDATIONS: 1) Obtain daily standing weight for accuracy 2) Ensure once daily w/ variable PO intake (350kcal/20g prot per bottle) 3) Continue thiamine/ MVI Rec Folate 4) Monitor lytes daily w/ diuretics, replete as needed (low K + mag) 5) Monitor BGs closely while on steroidal med
[2019-09-01 16:00] VITALS: BP 112/52
[2019-09-01] MEDS ORDERED: NS 275ml ONE (18:09)
--- NOTE | 2019-09-01 19:15 | NUR ---
RESPIRATORY NOTE: Received pt on BiPAP 20/10, back up rate 12, 100%. Pt on a Facial mask, skin intact, no redness/breakdowns noted. Foam tape applied on pt's nosebridge/cheeks to prevent mask irritations. Mask just replaced to Full Face per pt request. Foam tape also applied to forehead. Pt is alert/awake, follows commands. B/S td. diminished, nonproductive cough. BiPAP plugged into red outlet, alarms on & audible. Pt resting comfortably, in no apparent distress at this time. Will continue plan of care.
--- NOTE | 2019-09-01 19:30 | NUR ---
NURSE NOTES: Dr. Leavitt ordered 2 GM IV for patient.
--- NOTE | 2019-09-01 19:35 | NUR ---
HAND-OFF: Report given to Mathieu Urias RN.
--- NOTE | 2019-09-01 19:58 | NUR ---
NURSE NOTES: Received pt from REINALDO Shoemaker. Pt is currently resting in the bed and is alert and oriented x2-3. Pt is currently on BIPAP 20/10 and FiO2 100% with an O2 saturation of 99% noted. Pt remains SR on tele monitor at this time. R FA 20g and R AC 20g IV catheters noted which remain patent, intact and asymptomatic at this time. Condom cath noted which continues to drain yellow urine via gravity. Safety precautions observed. Bed remains in lowest position, safety wheels engaged, side rails up x3, call light within reach and bed alarm activated. Will continue to care plan. Will continue to monitor.
[2019-09-01 20:00] VITALS: BP 100/55
--- NOTE | 2019-09-01 20:12 | NUR ---
NURSE NOTES: Pt provided with bed bath, oral care and linen change. Pt tolerated care well. Pt continues resting in bed, bed is in lowest position with safety wheels engaged, bed alarm activated, call light within reach and side rails up x2. Will continue to monitor.
--- NOTE | 2019-09-01 23:30 | NUR ---
NURSE NOTES: Spoke with RT regarding switching from full face mask to partial mask to offload pressure from Bipap devices. RT present at bedside to change mask. Pt continues resting in bed, bed is in lowest position with safety wheels engaged, bed alarm activated, call light within reach and side rails up x2. Will continue to monitor.
[2019-09-02] VITALS: BP 97/53
--- NOTE | 2019-09-02 | NUR ---
NURSE NOTES: Pt provided with bed bath, oral care and linen change. Pt educated on purpose of condom catheter. Pt tolerated care well. Pt continues resting in bed, bed is in lowest position with safety wheels engaged, bed alarm activated, call light within reach and side rails up x2. Will continue to monitor.
--- NOTE | 2019-09-02 00:15 | Consultation ---
DATE OF CONSULTATION: 09/01/2019 INFECTIOUS DISEASE CONSULTATION CONSULTING PHYSICIAN: Jamie Swanson M.D. PRIMARY ATTENDING PHYSICIAN: Henry Leavitt M.D. This consult is for coverage of Dr. Erazo. REASON FOR CONSULT: MRSA pneumonia, UTI. HISTORY OF PRESENT ILLNESS: This is a 59-year-old white male admitted on 08/22/2019 because of altered mental status. He is homeless, found in a tent unconscious, but had alcohol in his breath. He had leukocytosis of 11.4 and elevated bilirubin. it was found that the patient has cirrhosis. In the course of hospitalization, he had pneumonia and sputum culture grew MRSA. He had ascites that was tapped. Altered mental status was improved and the patient right now is responsive. However, he has on and off respiratory problem and decrease in O2 saturation, currently is on BiPAP. 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 ALLERGIES: Allergic to penicillin. MEDICATIONS: Methylprednisone, vancomycin, nicotine patch, multivitamin, Protonix, spironolactone, IV vancomycin, Lasix, Tylenol, and Zosyn. SOCIAL HISTORY: Single, homeless. He has a history of drug abuse, alcohol abuse, and smoking. REVIEW OF SYSTEMS: Awake, alert. No pain. No nausea. No vomiting. No abdominal distention. PHYSICAL EXAMINATION: VITAL SIGNS: Temperature 98.6, pulse 90, blood pressure 93/41. GENERAL APPEARANCE: In no acute distress. HEAD AND NECK: He is on BiPAP. [place] conjunctivae. HEART: Regular rate. LUNGS: Clear. Some decreased expansion and sounds. ABDOMEN: Soft, distended with ascites. Has umbilical hernia. EXTREMITIES: No edema. LABORATORY AND DIAGNOSTIC DATA: WBC 11.3, hemoglobin 8.8, hematocrit 26.9, and platelets 60,000. UA showed wbc's of 15 to 20, leukocyte esterase 2+, nitrite positive. Urine culture showed Enterobacter cloacae. Nasal MRSA was positive. VRE was negative. Ascitic fluid culture negative. Sputum culture, MRSA normal [place]. CT scan of the abdomen and pelvis showed cirrhosis, TIPS, colonic diverticulosis, periumbilical hernia, L4-L5 fusion, and cholelithiasis. IMPRESSION: 1. MRSA pneumonia. 2. Enterobacter UTI that was treated. 3. Cirrhosis with ascites. 4. MRSA colonization. 5. Anemia. 6. Thrombocytopenia. 7. Hypokalemia with potassium of 2.9. 8. Hypercapnic respiratory failure. RECOMMENDATIONS: Discontinue Zosyn after the last dose in the evening. Continue IV vancomycin to finish 7 days of treatment for pneumonia. We will follow up the culture. At the end of my exam, I thank Dr. Leavitt for involving me in the care of this patient. Jamie Swanson M.D. DR: CHINO JOB#: [id number] CC: MORRO
[2019-09-02] MEDS: Vancomycin 500mg/D5W 110ml IVPB SCH ×6 (01:59→17:34)
[2019-09-02 04:00] VITALS: BP 102/58
[2019-09-02] MEDS: Piperacillin/Tazobactam 3.375 GM in NS 110 ML IVPB SCH (05:44)
[2019-09-02 06:04] LABS: ALANINE AMINOTRANSFERASE 36 U/L (12-78); ALBUMIN 1.3 G/DL (3.4-5.0); ALBUMIN/GLOBULIN RATIO 0.3 (1.0-2.7); ALKALINE PHOSPHATASE 103 U/L (46-116); ANION GAP 3 mmol/L (5-15); ASPARTATE AMINO TRANSFERASE 87 U/L (15-37); BILIRUBIN,TOTAL 2.5 MG/DL (0.2-1.0); BLOOD UREA NITROGEN 27 mg/dL (7-18); CALCIUM 8.3 MG/DL (8.5-10.1); CARBON DIOXIDE 36 MMOL/L (21-32); CHLORIDE 105 MMOL/L (98-107); CREATININE 1.3 MG/DL (0.55-1.30); POTASSIUM 3.2 MMOL/L (3.5-5.1); SODIUM 144 MMOL/L (136-145)
--- NOTE | 2019-09-02 06:36 | NUR ---
NURSE NOTES: Notified Dr Leavitt of K results 3.2 this morning. Will await further orders. Will continue to monitor.
--- NOTE | 2019-09-02 06:37 | NUR ---
NURSE NOTES: Dr Leavitt ordered KDur 40mEq PO once. Will carry out orders. Will continue to monitor.
[2019-09-02 06:47] LABS: BILIRUBIN,DIRECT 1.6 MG/DL (0.0-0.3)
--- NOTE | 2019-09-02 07:10 | NUR ---
HAND-OFF: Report given to REINALDO Bonilla. Pt remains stable at this time.
--- NOTE | 2019-09-02 07:20 | NUR ---
NURSE NOTES: Report received from REINALDO Murdock
--- NOTE | 2019-09-02 07:35 | General Progress Note ---
Assessment/Plan Problem List: (1) AMS (altered mental status) ICD Codes: R41.82 - Altered mental status, unspecified SNOMED: 449502011 Status: stable Assessment/Plan: iv abx id eval bipap follow up cxr diuresis critical and guarded Subjective Allergies: Coded Allergies: PENICILLINS (Verified Allergy, Intermediate, Rash, 09/01/19) Patient stated at this time Subjective on bipap. appears more comfortable. labs noted. on iv lasix and iv abx. desaturates off bipap. Objective Last 24 Hour Vital Signs Date Time Temp Pulse Resp B/P (MAP) Pulse Ox O2 Delivery O2 Flow Rate FiO2 09/02/19 07:17 101 27 98 Facial 100 09/02/19 05:10 96 19 98 Facial 100 09/02/19 04:00 Bi-pap 09/02/19 04:00 100 09/02/19 04:00 98.1 103 25 102/58 (73) 100 09/02/19 03:21 103 09/02/19 03:05 105 25 100 Bi-Pap 100 09/02/19 02:55 105 25 100 Facial 100 09/02/19 01:15 105 28 99 Facial 100 09/02/19 00:00 97.7 100 25 97/53 (68) 100 09/02/19 00:00 100 09/02/19 00:00 Bi-pap 09/01/19 23:24 107 09/01/19 22:40 104 27 99 Facial 100 09/01/19 21:12 103 33 100 Full Face 100 09/01/19 20:00 Bi-pap 09/01/19 20:00 100 09/01/19 20:00 98.1 92 32 100/55 (70) 100 09/01/19 19:13 98 29 100 Full Face 100 09/01/19 19:13 100 09/01/19 17:10 94 20 96 Facial 100 09/01/19 16:00 Bi-pap 09/01/19 16:00 100 09/01/19 16:00 98.4 82 23 112/52 (72) 95 09/01/19 15:08 86 09/01/19 15:01 89 21 97 Facial 100 09/01/19 13:03 88 23 98 Facial 100 09/01/19 12:00 Bi-pap 09/01/19 12:00 98.3 90 26 93/49 (64) 96 09/01/19 11:44 86 09/01/19 11:00 86 22 97 Facial 100 09/01/19 09:12 100 09/01/19 09:00 84 20 97 Facial 100 09/01/19 08:00 Bi-pap 09/01/19 08:00 98.0 89 19 96/56 (69) 90 09/01/19 08:00 100 09/01/19 07:46 85 Intake and Output 09/01/19 09/02/19 19:00 07:00 Intake Total 1057.5 ml 847.5 ml Output Total 1000 ml Balance 1057.5 ml -152.5 ml Intake Oral 700 ml 400 ml IV Total 357.5 ml 447.5 ml Output Urine Total 1000 ml # Voids 3 # Bowel Movements 2 Laboratory Tests 09/02/19 03:30: Sodium Level 144, Potassium Level 3.2L, Chloride Level 105, Carbon Dioxide Level 36H, Anion Gap 3L, Blood Urea Nitrogen 27H, Creatinine 1.3, Estimat Glomerular Filtration Rate 56.3, Glucose Level 118H, Calcium Level 8.3L, Total Bilirubin 2.5H, Direct Bilirubin 1.6H, Aspartate Amino Transf (AST/SGOT) 87H, Alanine Aminotransferase (ALT/SGPT) 36, Alkaline Phosphatase 103, Total Protein 6.4, Albumin 1.3L, Globulin 5.1, Albumin/Globulin Ratio 0.3L Height (Feet): 5 Height (Inches): 8.00 Weight (Pounds): 144 Objective General Appearance: WD/WN, lethargic. on bipap. Neck: supple Cardiovascular: regular rhythm Respiratory/Chest: lungs td rhonchi Abdomen: normal bowel sounds, non tender. small reducible periumbilical hernia Edema: no edema noted Arm (L), no edema noted Arm (R), no edema noted Leg (L), no edema noted Leg (R), no edema noted Pedal (L), no edema noted Pedal (R), no edema noted Generalized Henry Leavitt MD Sep 02, 2019 07:35
[2019-09-02 08:00] VITALS: BP 101/56
--- NOTE | 2019-09-02 08:10 | NUR ---
NURSE NOTES: Patient noted with non compliance and restlessness.Remove BIPAP and condom cath.Saturation at 68 %, educate patient and bipap placed back 20/10 at 100%. .Alert and oriented x 3-4, able to make needs no.RFA Patient on non Kept on close monitoring.Seen by Dr Leavitt, will follow up with new order.Made aware pt unstable for VQ SCAN, will continue close monitoring
--- NOTE | 2019-09-02 08:13 | Infectious Diseases Prog Note ---
Assessment/Plan Assessment/Plan IMPRESSION: 1. MRSA pneumonia. 2. Enterobacter UTI that was treated. 3. Cirrhosis with ascites. 4. MRSA colonization. 5. Anemia. 6. Thrombocytopenia. 7. Hypokalemia with potassium of 2.9. 8. Hypercapnic respiratory failure. RECOMMENDATIONS: Discontinue Zosyn Continue IV vancomycin repeat CXR HIV test Subjective ROS Limited/Unobtainable: Yes Constitutional: Denies: fever Respiratory: Reports: no symptoms, other - was put on BIPAP Gastrointestinal/Abdominal: Reports: no symptoms Genitourinary: Reports: no symptoms Allergies: Coded Allergies: PENICILLINS (Verified Allergy, Intermediate, Rash, 09/01/19) Patient stated at this time Objective Vital Signs Last 24 Hour Vital Signs Date Time Temp Pulse Resp B/P (MAP) Pulse Ox O2 Delivery O2 Flow Rate FiO2 09/02/19 07:17 101 27 98 Facial 100 09/02/19 05:10 96 19 98 Facial 100 09/02/19 04:00 Bi-pap 09/02/19 04:00 100 09/02/19 04:00 98.1 103 25 102/58 (73) 100 09/02/19 03:21 103 09/02/19 03:05 105 25 100 Bi-Pap 100 09/02/19 02:55 105 25 100 Facial 100 09/02/19 01:15 105 28 99 Facial 100 09/02/19 00:00 97.7 100 25 97/53 (68) 100 09/02/19 00:00 100 09/02/19 00:00 Bi-pap 09/01/19 23:24 107 09/01/19 22:40 104 27 99 Facial 100 09/01/19 21:12 103 33 100 Full Face 100 09/01/19 20:00 Bi-pap 09/01/19 20:00 100 09/01/19 20:00 98.1 92 32 100/55 (70) 100 09/01/19 19:13 98 29 100 Full Face 100 09/01/19 19:13 100 09/01/19 17:10 94 20 96 Facial 100 09/01/19 16:00 Bi-pap 09/01/19 16:00 100 09/01/19 16:00 98.4 82 23 112/52 (72) 95 09/01/19 15:08 86 09/01/19 15:01 89 21 97 Facial 100 09/01/19 13:03 88 23 98 Facial 100 09/01/19 12:00 Bi-pap 09/01/19 12:00 98.3 90 26 93/49 (64) 96 09/01/19 11:44 86 09/01/19 11:00 86 22 97 Facial 100 09/01/19 09:12 100 09/01/19 09:00 84 20 97 Facial 100 Height (Feet): 5 Height (Inches): 8.00 Weight (Pounds): 144 General Appearance: cachetic Respiratory/Chest: lungs clear, other - on BIPAP Cardiovascular: tachycardia Abdomen: soft, non tender Extremities: no edema Skin: other - bruises Neurologic/Psychiatric: alert, responsive Laboratory Tests Test 09/02/19 03:30 Sodium Level 144 MMOL/L (136-145) Potassium Level 3.2 MMOL/L (3.5-5.1) L Chloride Level 105 MMOL/L (98-107) Carbon Dioxide Level 36 MMOL/L (21-32) H Anion Gap 3 mmol/L (5-15) L Blood Urea Nitrogen 27 mg/dL (7-18) H Creatinine 1.3 MG/DL (0.55-1.30) Estimat Glomerular Filtration Rate 56.3 mL/min (>60) Glucose Level 118 MG/DL (74-106) H Calcium Level 8.3 MG/DL (8.5-10.1) L Total Bilirubin 2.5 MG/DL (0.2-1.0) H Direct Bilirubin 1.6 MG/DL (0.0-0.3) H Aspartate Amino Transf (AST/SGOT) 87 U/L (15-37) H Alanine Aminotransferase (ALT/SGPT) 36 U/L (12-78) Alkaline Phosphatase 103 U/L (46-116) Total Protein 6.4 G/DL (6.4-8.2) Albumin 1.3 G/DL (3.4-5.0) L Globulin 5.1 g/dL Albumin/Globulin Ratio 0.3 (1.0-2.7) L Current Medications Medications (Trade) Dose Ordered Sig/Akash Route PRN Reason Start Time Stop Time Status Last Admin Dose Admin Acetaminophen (Tylenol) 650 mg Q4H PRN ORAL Mild Pain/Temp > 100.5 08/28/19 07:00 09/22/19 10:59 Furosemide (Lasix) 40 mg EVERY 12 HOURS IV 08/28/19 09:00 09/27/19 08:59 09/01/19 20:14 Guaifenesin/ Dextromethorphan (Robitussin DM Syrup) 5 ml Q4H PRN ORAL For Cough 08/28/19 06:15 09/26/19 06:14 Heparin Sodium (Porcine) (Heparin 5000 units/ml) 5,000 units EVERY 12 HOURS SUBQ 08/29/19 09:30 09/28/19 09:29 08/31/19 08:55 Methylprednisolone Sodium Succinate (Solu-MEDROL) 60 mg DAILY IVP 08/31/19 11:00 09/30/19 10:59 09/01/19 08:08 Multivitamins (Multivitamins) 1 tab DAILY ORAL 08/28/19 09:00 09/22/19 08:59 09/01/19 08:08 Nicotine (Nicoderm) 1 patch Q24H TDERMAL 08/28/19 16:00 09/23/19 15:59 09/01/19 15:11 Ondansetron HCl (Zofran) 4 mg Q6H PRN IVP Nausea & Vomiting 08/28/19 09:30 09/22/19 03:29 Pantoprazole (Protonix) 40 mg DAILY ORAL 08/28/19 09:00 09/22/19 08:59 09/01/19 08:08 Piperacillin Sod/ Tazobactam Sod 3.375 gm/Sodium Chloride 110 ml @ 27.5 mls/hr EVERY 8 HOURS IVPB 08/28/19 06:00 09/06/19 23:59 09/02/19 05:44 Potassium Chloride (K-Dur) 40 meq ONCE ORAL 09/02/19 09:00 09/02/19 10:00 Potassium Chloride (K-Dur) 60 meq ONCE ORAL 09/02/19 12:00 09/02/19 13:00 Spironolactone (Aldactone) 25 mg DAILY ORAL 08/28/19 09:00 09/24/19 08:59 09/01/19 08:08 Thiamine HCl (Vitamin B1) 100 mg DAILY ORAL 08/28/19 09:00 09/22/19 08:59 09/01/19 08:08 Vancomycin HCl (Vanco rx to dose) 1 ea DAILY PRN MISC Per rx protocol 08/28/19 09:00 09/26/19 06:44 Vancomycin HCl 500 mg/Dextrose 110 ml @ 110 mls/hr Q8H IVPB 08/30/19 18:00 09/04/19 17:59 09/02/19 01:59 Jamie Swanson MD Sep 02, 2019 08:13
[2019-09-02] MEDS: Heparin 5000 units/ml inj SUBQ SCH ×2 (09:00→20:21)
[2019-09-02] MEDS: Solu-MEDROL 125mg Inj IVP SCH (09:12)
[2019-09-02] MEDS: Thiamine 100mg tab ORAL SCH (09:12)
[2019-09-02] MEDS: Spironolactone 25mg tab ORAL SCH (09:13)
--- NOTE | 2019-09-02 09:20 | NUR ---
NURSE NOTES: Placed on non rebreather for feeding and consumed 100% at breakfast
--- NOTE | 2019-09-02 10:14 | NUR ---
NURSE NOTES: Patient remains with episode of non compliance, removing Bipap. Reinforcement provided and continue on close monitoring.HOB ELEVATED TO PREVENT ASPIRATION.
--- NOTE | 2019-09-02 11:09 | NUR ---
HAND-OFF: Report given to REINALDO Abdi.
--- NOTE | 2019-09-02 11:10 | NUR ---
NURSE NOTES: Received report from REINALDO Bonilla. Patient is resting in bed, in stable condition. No s/sx of SOB, pt is noted on Bipap 20/10 FiO2 100%, SpO2 95%. Denies any presence of pain or discomfort at this time. Bed is in lowest position, brakes engaged. Call light is kept within easy reach. Will continue to monitor patient.
[2019-09-02 11:57] VITALS: BP 111/62
--- NOTE | 2019-09-02 12:51 | NUR ---
NURSE NOTES: Patient unable to tolerate non-rebreather mask 15L FiO2 100% to do NM Lung VQ scan, contacted and informed Dr. Leavitt. acknowledged and ordered to discontinue NM Lung VQ scan and ABG. Orders entered, noted, and carried out. RT made aware. Charge nurse aware. Will continue to monitor patient.
--- NOTE | 2019-09-02 12:53 | NUR ---
RADIOLOGY DEPT., CHEST X-RAY DONE.-P.DYE
--- NOTE | 2019-09-02 13:19 | NUR ---
NURSE NOTES: Contacted Dr. Leavitt and relayed new results of ABG on BiPAP 20/10 FiO2 100%: pH 7.47, pCO2 53.3, pO2 96, HCO3 38.6, O2 Saturation 96.8., base excess 13.4. Dr. Leavitt acknowledged and ordered to continue on Bipap with same settings and ordered ABG for tomorrow morning. Orders entered, noted, and carried out. Will continue to monitor patient.
--- NOTE | 2019-09-02 13:50 | NUR ---
CASE MANAGEMENT:REVIEW 09/02/19 SI:AMS D/T PCP. ENTEROBACTER UTI RESPIRATORY FAILURE 97.9 104 18 101/56 95% ON BIPAP WBC+11.3 H/H-8.8/26.9 PLT-60 K-3.2 PH+7.47 PCO2+53.3 HCO3+38.6 IS: K-DUR PO X2 IV MAG SULFATE Q1HRS X2 IV SOLUMEDROL QD IV VANCOMYCIN Q8HRS IV LASIX Q12 HEPARIN SQ Q12 : STEP DOWN UNIT PLAN: PULMONOLOGY CONSULT PENDING
[2019-09-02 16:00] VITALS: BP 127/52
--- NOTE | 2019-09-02 18:23 | Diagnostic Imaging Report ---
Indication: Shortness of breath Technique: One view of the chest Comparison: 08/30/2019 Findings: Bilateral diffuse interstitial and airspace disease is again demonstrated, appearing minimally improved, still extensive. The heart size is normal. Embolization coils are again demonstrated in the left upper quadrant of the abdomen Impression: Bilateral diffuse interstitial and airspace edema versus infiltrates, slightly improved since prior exam of 2 days earlier
--- NOTE | 2019-09-02 19:20 | NUR ---
NURSE NOTES: Received pt from REINALDO Abdi. Pt is currently resting in the bed and is alert and oriented x2-3. Pt is currently on BIPAP 20/10 and FiO2 100% with an O2 saturation of 99% noted. Pt remains SR on tele monitor at this time. R FA 20g and R AC 20g IV catheters noted which remain patent, intact and asymptomatic at this time. Safety precautions observed. Bed remains in lowest position, safety wheels engaged, side rails up x3, call light within reach and bed alarm activated. Will continue to care plan. Will continue to monitor.
--- NOTE | 2019-09-02 19:27 | NUR ---
HAND-OFF: Report given to REINALDO Goins.
--- NOTE | 2019-09-02 19:40 | Diagnostic Imaging Report ---
Indication: Shortness of breath Technique: One view of the chest Comparison: 09/01/2019 Findings: Bilateral diffuse interstitial and airspace disease is unchanged. The heart size is normal. Pleural spaces remain clear Impression: Unchanged, over one day, findings as above.
[2019-09-02 20:00] VITALS: BP 102/63
--- NOTE | 2019-09-02 21:00 | NUR ---
NURSE NOTES: Pt provided with bed bath and linen change. Pt refused oral care. Pt tolerated care well. Pt continues resting in bed, bed is in lowest position with safety wheels engaged, bed alarm activated, call light within reach and side rails up x2. Will continue to monitor.
[2019-09-03] VITALS: BP 110/60
[2019-09-03] MEDS: Vancomycin 500mg/D5W 110ml IVPB SCH ×6 (01:29→17:34)
[2019-09-03 04:00] VITALS: BP 104/53
--- NOTE | 2019-09-03 06:30 | NUR ---
RESPIRATORY NOTE: Received pt on Bipap 20/10-100%FiO2, saturates at 92%. Pt desat to low 80% when off Bipap. Foam tapes applied on forehead and cheeks, no redness or skin break down note. Pt is awake, alert, and able to follow commands. Alarms are set and audible, Bipap is plugged into the red outlet, ambu bag is at bedside. No SOB or resp distress noted. Will continue to monitor.
[2019-09-03 06:40] LABS: ALANINE AMINOTRANSFERASE 35 U/L (12-78); ALBUMIN 1.3 G/DL (3.4-5.0); ALBUMIN/GLOBULIN RATIO 0.3 (1.0-2.7); ALKALINE PHOSPHATASE 101 U/L (46-116); ANION GAP 2 mmol/L (5-15); ASPARTATE AMINO TRANSFERASE 69 U/L (15-37); BILIRUBIN,TOTAL 2.6 MG/DL (0.2-1.0); BLOOD UREA NITROGEN 26 mg/dL (7-18); CALCIUM 8.3 MG/DL (8.5-10.1); CARBON DIOXIDE 35 MMOL/L (21-32); CHLORIDE 101 MMOL/L (98-107); CREATININE 1.1 MG/DL (0.55-1.30); POTASSIUM 3.5 MMOL/L (3.5-5.1); SODIUM 138 MMOL/L (136-145)
[2019-09-03 06:56] LABS: BILIRUBIN,DIRECT 1.6 MG/DL (0.0-0.3)
--- NOTE | 2019-09-03 07:37 | NUR ---
HAND-OFF: Report given to Corrine Shaver RN.
--- NOTE | 2019-09-03 07:40 | NUR ---
NURSE NOTES: Report received from Briseida Urias RN.Pt resting in bed awake,alert noted no resp distress on BIPAP 16/6 Fio2 100%,O2 sat 94%,no signs of pain or discomfort ,S-R on the monitor,voids per urinal,skin warm and dry IV sites to RFA and RAC intact,call humphreys at bedside,SR up x2 HOB elevated,bed lock in lowest position will continue with plans of care.
[2019-09-03 08:00] VITALS: BP 99/60
[2019-09-03] MEDS: Thiamine 100mg tab ORAL SCH (08:50)
[2019-09-03] MEDS: Spironolactone 25mg tab ORAL SCH (08:50)
[2019-09-03] MEDS: Solu-MEDROL 125mg Inj IVP SCH (08:50)
[2019-09-03] MEDS: Heparin 5000 units/ml inj SUBQ SCH ×2 (08:52→21:00)
--- NOTE | 2019-09-03 09:00 | NUR ---
NURSE NOTES: Heparin 5,000 u SQ hold,PLT 60.
--- NOTE | 2019-09-03 10:00 | NUR ---
NURSE NOTES: Dr Leavitt informed by phone re results of ABG,no orders given.
--- NOTE | 2019-09-03 10:42 | Infectious Diseases Prog Note ---
Assessment/Plan Assessment/Plan antibiotics : vancomycin iv A 1. MRSA pneumonia 2. respiratory failure 3. enterobacter UTI s/p rx 4. cirrhosis 5. ascites s/p paracentesis no SBP 6. thrombocytopenia P 1. continue iv vancomycin 2 more days 2. will follow up cultures Subjective ROS Limited/Unobtainable: Yes Allergies: Coded Allergies: PENICILLINS (Verified Allergy, Intermediate, Rash, 09/01/19) Patient stated at this time Objective Vital Signs Last 24 Hour Vital Signs Date Time Temp Pulse Resp B/P (MAP) Pulse Ox O2 Delivery O2 Flow Rate FiO2 09/03/19 09:25 86 09/03/19 08:30 82 21 91 Facial 100 09/03/19 06:30 71 25 92 Full Face 100 09/03/19 05:19 87 24 94 Full Face 100 09/03/19 04:00 100 09/03/19 04:00 97.6 89 24 104/53 (70) 94 09/03/19 04:00 Bi-pap 09/03/19 03:46 85 25 95 Full Face 100 09/03/19 03:37 86 09/03/19 01:27 77 21 97 Full Face 100 09/03/19 00:00 98.1 78 18 110/60 (77) 97 09/03/19 00:00 81 09/03/19 00:00 Bi-pap 09/02/19 23:19 85 26 98 Full Face 100 09/02/19 20:48 85 27 96 Full Face 100 09/02/19 20:00 100 09/02/19 20:00 Bi-pap 09/02/19 20:00 98.5 81 14 102/63 (76) 96 09/02/19 19:46 95 26 97 Full Face 100 09/02/19 19:32 90 09/02/19 17:06 81 16 97 Full Face 100 09/02/19 16:00 100 09/02/19 16:00 98.3 100 19 127/52 (77) 95 09/02/19 16:00 89 09/02/19 16:00 Bi-pap 09/02/19 14:39 89 25 94 Full Face 100 09/02/19 12:37 87 25 92 Full Face 100 09/02/19 12:00 101 09/02/19 11:58 Bi-pap 09/02/19 11:58 100 09/02/19 11:57 98.1 96 18 111/62 (78) 95 09/02/19 10:57 82 24 97 Facial 100 Height (Feet): 5 Height (Inches): 8.00 Weight (Pounds): 151 HEENT: other - bipap Respiratory/Chest: lungs clear Cardiovascular: normal rate, regular rhythm, no gallop/murmur Abdomen: soft, non tender Extremities: no edema Laboratory Tests Test 09/02/19 12:56 09/03/19 04:30 09/03/19 08:09 Arterial Blood pH 7.478 (7.350-7.450) 7.507 (7.350-7.450) Arterial Blood Partial Pressure CO2 53.3 mmHg (35.0-45.0) H 50.0 mmHg (35.0-45.0) H Arterial Blood Partial Pressure O2 96.0 mmHg (75.0-100.0) 70.9 mmHg (75.0-100.0) L Arterial Blood HCO3 38.6 mmol/L (22.0-26.0) H 38.7 mmol/L (22.0-26.0) H Arterial Blood Oxygen Saturation 96.8 % (95-100) 93.0 % (95-100) L Arterial Blood Base Excess 13.4 (-2-2) *H 14.1 (-2-2) *H Giovanny Test Positive Positive Sodium Level 138 MMOL/L (136-145) Potassium Level 3.5 MMOL/L (3.5-5.1) Chloride Level 101 MMOL/L (98-107) Carbon Dioxide Level 35 MMOL/L (21-32) H Anion Gap 2 mmol/L (5-15) L Blood Urea Nitrogen 26 mg/dL (7-18) H Creatinine 1.1 MG/DL (0.55-1.30) Estimat Glomerular Filtration Rate > 60 mL/min (>60) Glucose Level 101 MG/DL (74-106) Calcium Level 8.3 MG/DL (8.5-10.1) L Total Bilirubin 2.6 MG/DL (0.2-1.0) H Direct Bilirubin 1.6 MG/DL (0.0-0.3) H Aspartate Amino Transf (AST/SGOT) 69 U/L (15-37) H Alanine Aminotransferase (ALT/SGPT) 35 U/L (12-78) Alkaline Phosphatase 101 U/L (46-116) Total Protein 6.1 G/DL (6.4-8.2) L Albumin 1.3 G/DL (3.4-5.0) L Globulin 4.8 g/dL Albumin/Globulin Ratio 0.3 (1.0-2.7) L HIV (1&2) Antibody Rapid Pending Current Medications Medications (Trade) Dose Ordered Sig/Akash Route PRN Reason Start Time Stop Time Status Last Admin Dose Admin Acetaminophen (Tylenol) 650 mg Q4H PRN ORAL Mild Pain/Temp > 100.5 08/28/19 07:00 09/22/19 10:59 Furosemide (Lasix) 40 mg EVERY 12 HOURS IV 08/28/19 09:00 09/27/19 08:59 09/03/19 08:50 Guaifenesin/ Dextromethorphan (Robitussin DM Syrup) 5 ml Q4H PRN ORAL For Cough 08/28/19 06:15 09/26/19 06:14 Heparin Sodium (Porcine) (Heparin 5000 units/ml) 5,000 units EVERY 12 HOURS SUBQ 08/29/19 09:30 09/28/19 09:29 08/31/19 08:55 Methylprednisolone Sodium Succinate (Solu-MEDROL) 60 mg DAILY IVP 08/31/19 11:00 09/30/19 10:59 09/03/19 08:50 Multivitamins (Multivitamins) 1 tab DAILY ORAL 08/28/19 09:00 09/22/19 08:59 09/03/19 08:50 Nicotine (Nicoderm) 1 patch Q24H TDERMAL 08/28/19 16:00 09/23/19 15:59 09/02/19 17:32 Ondansetron HCl (Zofran) 4 mg Q6H PRN IVP Nausea & Vomiting 08/28/19 09:30 09/22/19 03:29 Pantoprazole (Protonix) 40 mg DAILY ORAL 08/28/19 09:00 09/22/19 08:59 09/03/19 08:50 Spironolactone (Aldactone) 25 mg DAILY ORAL 08/28/19 09:00 09/24/19 08:59 09/03/19 08:50 Thiamine HCl (Vitamin B1) 100 mg DAILY ORAL 08/28/19 09:00 09/22/19 08:59 09/03/19 08:50 Vancomycin HCl (Vanco rx to dose) 1 ea DAILY PRN MISC Per rx protocol 08/28/19 09:00 09/26/19 06:44 Vancomycin HCl 500 mg/Dextrose 110 ml @ 110 mls/hr Q8H IVPB 08/30/19 18:00 09/04/19 17:59 09/03/19 01:29 Morena Erazo MD Sep 03, 2019 10:42
[2019-09-03 12:00] VITALS: BP 94/52
--- NOTE | 2019-09-03 12:00 | NUR ---
NURSE NOTES: Pt resting in bed asleep no resp distress presented .
[2019-09-03 16:00] VITALS: BP 98/57
--- NOTE | 2019-09-03 16:56 | NUR ---
CASE MANAGEMENT:REVIEW 09/03/19 SI:AMS D/T PCP. ENTEROBACTER UTI RESPIRATORY FAILURE 98.3 94 19 98/57 93% ON BIPAP IS: IV SOLUMEDROL QD IV VANCOMYCIN Q8HRS IV LASIX Q12 HEPARIN SQ Q12 : STEP DOWN UNIT
--- NOTE | 2019-09-03 19:25 | NUR ---
HAND-OFF: Report given to Radha Ventura,pt stable denies any Sob or resp distress..
--- NOTE | 2019-09-03 19:30 | NUR ---
NURSE NOTES: Received report from Corrine Shaver RN. Pt is in stable conditon, no signs or symptoms of pain or distress noted. Pt denies pain at this time. BIPAP 20/10, FiO2 100%, satting @ 94%. PIVs at RAC 20g and RFA 20g are patent, intact, and asymptomatic. Skin is intact. Bed in lowest position, bed alarm armed, call light within reach. Will continue plan of care and close monitoring.
[2019-09-03 20:00] VITALS: BP 106/58
[2019-09-04] VITALS: BP 102/61
[2019-09-04] MEDS: Vancomycin 500mg/D5W 110ml IVPB SCH ×6 (02:40→18:22)
[2019-09-04 04:00] VITALS: BP 96/51
--- NOTE | 2019-09-04 07:24 | NUR ---
HAND-OFF: Report given to Tisha Shrestha RN. Pt stable condition.
[2019-09-04 08:00] VITALS: BP 94/56
[2019-09-04] MEDS: Heparin 5000 units/ml inj SUBQ SCH ×2 (08:06→20:59)
[2019-09-04] MEDS: Thiamine 100mg tab ORAL SCH (08:24)
[2019-09-04] MEDS: Solu-MEDROL 125mg Inj IVP SCH (08:24)
[2019-09-04] MEDS: Spironolactone 25mg tab ORAL SCH (08:31)
[2019-09-04 12:00] VITALS: BP 102/58
[2019-09-04 16:00] VITALS: BP 94/58
[2019-09-04 20:00] VITALS: BP 120/67
[2019-09-05] VITALS: BP 109/68
[2019-09-05] MEDS: Vancomycin 500mg/D5W 110ml IVPB SCH ×6 (01:16→17:43)
[2019-09-05 04:00] VITALS: BP 106/61
[2019-09-05 06:06] LABS: HEMATOCRIT 26.8 % (42.0-52.0); HEMOGLOBIN 9.2 G/DL (14.2-18.0); MEAN CORPUSCULAR VOLUME 106 FL (80-99); PLATELET COUNT 91 K/UL (150-450); RED BLOOD COUNT 2.54 M/UL (4.70-6.10); RED CELL DISTRIBUTION WIDTH 14.6 % (11.6-14.8); WHITE BLOOD COUNT 21.3 K/UL (4.8-10.8)
[2019-09-05 06:24] LABS: ALANINE AMINOTRANSFERASE 49 U/L (12-78); ALBUMIN 1.4 G/DL (3.4-5.0); ALBUMIN/GLOBULIN RATIO 0.3 (1.0-2.7); ALKALINE PHOSPHATASE 122 U/L (46-116); ANION GAP 1 mmol/L (5-15); ASPARTATE AMINO TRANSFERASE 72 U/L (15-37); BILIRUBIN,TOTAL 1.9 MG/DL (0.2-1.0); BLOOD UREA NITROGEN 24 mg/dL (7-18); CALCIUM 8.3 MG/DL (8.5-10.1); CARBON DIOXIDE 38 MMOL/L (21-32); CHLORIDE 98 MMOL/L (98-107); POTASSIUM 2.9 MMOL/L (3.5-5.1); SODIUM 137 MMOL/L (136-145)
[2019-09-05 06:27] LABS: BILIRUBIN,DIRECT 1.3 MG/DL (0.0-0.3)
--- NOTE | 2019-09-05 07:00 | Progress Note ---
DATE: 09/04/2019 INTERNAL MEDICINE PROGRESS NOTE Late entry. SUBJECTIVE: The patient remains on IV antimicrobials for MRSA pneumonia with respiratory failure and Enterobacter urinary tract infection. Continues to require BiPAP, but is very uncomfortable. OBJECTIVE: VITAL SIGNS: Blood pressure 102/58, pulse 103, respirations 25, afebrile. LUNGS: Diminished breath sounds. Few rales. HEART: Regular rhythm rate. Normal S1, S2. ABDOMEN: Soft. Mild ascites EXTREMITIES: Trace edema. LABORATORY DATA: ABG 7.51, 50, 71. Potassium 3.5, BUN 26, creatinine 1.1. Albumin 1.3. PLAN: 1. Antimicrobials. 2. Respiratory hygiene. 3. Taper BiPAP as able. 4. Follow up chest radiograph and laboratories based on clinical parameters. Ar Gomez M.D. DR: JACKY JOB#: [id number] CC:
--- NOTE | 2019-09-05 07:29 | NUR ---
HAND-OFF: Report given to Corrine Shaver RN. Pt in stable condition.
--- NOTE | 2019-09-05 07:30 | NUR ---
NURSE NOTES: Report received from Radha Ventura RN.Pt awake,alert oriented,noted no resp distress on BIPAP 20/10 Fio2 100%,denies any c/o pain or discomfort,S-Tach on the monitor,uses urinal to void,skin warm and dry IV sites x2 to RFA and RAC,call humphreys at bedside,SR up x2 HOB elevated,bed lock in lowest position,will continue with plans of care.
[2019-09-05 08:00] VITALS: BP 119/74
[2019-09-05] MEDS: Solu-MEDROL 125mg Inj IVP SCH (08:20)
[2019-09-05] MEDS: Thiamine 100mg tab ORAL SCH (08:21)
[2019-09-05] MEDS: Spironolactone 25mg tab ORAL SCH (08:21)
[2019-09-05] MEDS: Heparin 5000 units/ml inj SUBQ SCH ×2 (08:22→21:00)
--- NOTE | 2019-09-05 09:00 | NUR ---
NURSE NOTES: Heparin 5,000 u SQ hold, PLT 91.wii continue to monitor pt.
--- NOTE | 2019-09-05 11:03 | Infectious Diseases Prog Note ---
Assessment/Plan Assessment/Plan IMPRESSION: 1. MRSA pneumonia. 2. Enterobacter UTI that was treated. 3. Cirrhosis with ascites. 4. MRSA colonization. 5. Anemia. 6. Thrombocytopenia. 7. Hypokalemia with potassium of 2.9. 8. Hypercapnic respiratory failure. RECOMMENDATIONS: Continue IV vancomycin until tonight repeat CXR Taper steroids Subjective ROS Limited/Unobtainable: Yes Constitutional: Denies: fever Respiratory: Reports: shortness of breath Gastrointestinal/Abdominal: Reports: constipation Allergies: Coded Allergies: PENICILLINS (Verified Allergy, Intermediate, Rash, 09/01/19) Patient stated at this time Objective Vital Signs Last 24 Hour Vital Signs Date Time Temp Pulse Resp B/P (MAP) Pulse Ox O2 Delivery O2 Flow Rate FiO2 09/05/19 08:31 93 28 94 Facial 100 09/05/19 08:00 108 09/05/19 08:00 97.7 100 28 119/74 (89) 93 09/05/19 08:00 100 09/05/19 08:00 Bi-pap 09/05/19 07:20 88 30 94 Facial 100 09/05/19 05:29 89 21 99 Facial 100 09/05/19 04:00 97.8 89 20 106/61 (76) 96 09/05/19 04:00 100 09/05/19 04:00 Bi-pap 09/05/19 04:00 91 09/05/19 03:34 91 09/05/19 03:19 88 22 99 Facial 100 09/05/19 01:04 88 23 100 Facial 100 09/05/19 00:00 Bi-pap 09/05/19 00:00 100 09/05/19 00:00 98.0 75 20 109/68 (82) 98 09/04/19 23:00 88 22 99 Facial 100 09/04/19 21:06 86 24 99 Facial 100 09/04/19 20:00 Bi-pap 09/04/19 20:00 100 09/04/19 20:00 81 09/04/19 20:00 98.0 86 20 120/67 (84) 99 09/04/19 19:30 82 27 99 Facial 100 09/04/19 17:42 74 15 97 Facial 100 09/04/19 16:00 100 09/04/19 16:00 Bi-pap 09/04/19 16:00 97.7 75 26 94/58 (70) 97 09/04/19 15:24 80 09/04/19 14:57 99 32 93 Facial 100 09/04/19 12:52 80 16 92 Facial 100 09/04/19 12:00 Bi-pap 09/04/19 12:00 97.7 80 26 102/58 (73) 91 09/04/19 12:00 97.7 09/04/19 12:00 100 09/04/19 11:40 80 09/04/19 11:20 89 28 93 Facial 100 Height (Feet): 5 Height (Inches): 8.00 Weight (Pounds): 150 HEENT: mucous membranes moist Respiratory/Chest: decreased breath sounds, other - on BIPAP Cardiovascular: normal rate Abdomen: soft, non tender Extremities: no edema Neurologic/Psychiatric: alert, responsive Laboratory Tests Test 09/05/19 05:51 White Blood Count 21.3 K/UL (4.8-10.8) H Red Blood Count 2.54 M/UL (4.70-6.10) L Hemoglobin 9.2 G/DL (14.2-18.0) L Hematocrit 26.8 % (42.0-52.0) L Mean Corpuscular Volume 106 FL (80-99) H Mean Corpuscular Hemoglobin 36.3 PG (27.0-31.0) H Mean Corpuscular Hemoglobin Concent 34.4 G/DL (32.0-36.0) Red Cell Distribution Width 14.6 % (11.6-14.8) Platelet Count 91 K/UL (150-450) L Mean Platelet Volume 9.6 FL (6.5-10.1) Neutrophils (%) (Auto) % (45.0-75.0) Lymphocytes (%) (Auto) % (20.0-45.0) Monocytes (%) (Auto) % (1.0-10.0) Eosinophils (%) (Auto) % (0.0-3.0) Basophils (%) (Auto) % (0.0-2.0) Differential Total Cells Counted 100 Neutrophils % (Manual) 75 % (45-75) Lymphocytes % (Manual) 14 % (20-45) L Monocytes % (Manual) 7 % (1-10) Eosinophils % (Manual) 4 % (0-3) H Basophils % (Manual) 0 % (0-2) Band Neutrophils 0 % (0-8) Platelet Estimate Decreased L Platelet Morphology Normal Anisocytosis 1+ Sodium Level 137 MMOL/L (136-145) Potassium Level 2.9 MMOL/L (3.5-5.1) L Chloride Level 98 MMOL/L (98-107) Carbon Dioxide Level 38 MMOL/L (21-32) H Anion Gap 1 mmol/L (5-15) L Blood Urea Nitrogen 24 mg/dL (7-18) H Creatinine 1.0 MG/DL (0.55-1.30) Estimat Glomerular Filtration Rate > 60 mL/min (>60) Glucose Level 90 MG/DL (74-106) Calcium Level 8.3 MG/DL (8.5-10.1) L Magnesium Level 1.4 MG/DL (1.8-2.4) L Total Bilirubin 1.9 MG/DL (0.2-1.0) H Direct Bilirubin 1.3 MG/DL (0.0-0.3) H Aspartate Amino Transf (AST/SGOT) 72 U/L (15-37) H Alanine Aminotransferase (ALT/SGPT) 49 U/L (12-78) Alkaline Phosphatase 122 U/L (46-116) H Pro-B-Type Natriuretic Peptide 453 pg/mL (0-125) H Total Protein 6.2 G/DL (6.4-8.2) L Albumin 1.4 G/DL (3.4-5.0) L Globulin 4.8 g/dL Albumin/Globulin Ratio 0.3 (1.0-2.7) L Current Medications Medications (Trade) Dose Ordered Sig/Akash Route PRN Reason Start Time Stop Time Status Last Admin Dose Admin Acetaminophen (Tylenol) 650 mg Q4H PRN ORAL Mild Pain/Temp > 100.5 08/28/19 07:00 09/22/19 10:59 09/05/19 08:40 Furosemide (Lasix) 40 mg EVERY 12 HOURS IV 08/28/19 09:00 09/27/19 08:59 09/05/19 08:20 Guaifenesin/ Dextromethorphan (Robitussin DM Syrup) 5 ml Q4H PRN ORAL For Cough 08/28/19 06:15 09/26/19 06:14 Heparin Sodium (Porcine) (Heparin 5000 units/ml) 5,000 units EVERY 12 HOURS SUBQ 08/29/19 09:30 09/28/19 09:29 08/31/19 08:55 Magnesium Sulfate 100 ml @ 100 mls/hr Q1H IVPB 09/05/19 07:15 09/05/19 11:14 09/05/19 10:53 Methylprednisolone Sodium Succinate (Solu-MEDROL) 60 mg DAILY IVP 08/31/19 11:00 09/30/19 10:59 09/05/19 08:20 Multivitamins (Multivitamins) 1 tab DAILY ORAL 08/28/19 09:00 09/22/19 08:59 09/05/19 08:22 Nicotine (Nicoderm) 1 patch Q24H TDERMAL 08/28/19 16:00 09/23/19 15:59 09/04/19 18:22 Ondansetron HCl (Zofran) 4 mg Q6H PRN IVP Nausea & Vomiting 08/28/19 09:30 09/22/19 03:29 Pantoprazole (Protonix) 40 mg DAILY ORAL 08/28/19 09:00 09/22/19 08:59 09/05/19 08:22 Potassium Chloride (K-Dur) 40 meq ONCE ORAL 09/05/19 13:00 09/05/19 14:00 Spironolactone (Aldactone) 25 mg DAILY ORAL 08/28/19 09:00 09/24/19 08:59 09/05/19 08:21 Thiamine HCl (Vitamin B1) 100 mg DAILY ORAL 08/28/19 09:00 09/22/19 08:59 09/05/19 08:21 Vancomycin HCl (Vanco rx to dose) 1 ea DAILY PRN MISC Per rx protocol 08/28/19 09:00 09/05/19 23:59 Vancomycin HCl 500 mg/Dextrose 110 ml @ 110 mls/hr Q8H IVPB 08/30/19 18:00 09/05/19 23:59 09/05/19 10:10 Jamie Swanson MD Sep 05, 2019 11:02
[2019-09-05 11:17] LABS: APPEARANCE,URINE CLEAR; BILIRUBIN, URINE NEGATIVE (NEGATIVE); COLOR,URINE PALE YELLOW; GLUCOSE, URINE (UA) NEGATIVE (NEGATIVE); KETONES,URINE NEGATIVE (NEGATIVE); LEUKOCYTE ESTERASE ,URINE NEGATIVE (NEGATIVE); NITRITE,URINE NEGATIVE (NEGATIVE); PH,URINE 7 (4.5-8.0); PROTEIN,URINE NEGATIVE (NEGATIVE); UROBILINOGEN,URINE NORMAL MG/DL (0.0-1.0)
[2019-09-05 12:00] VITALS: BP 98/56
--- NOTE | 2019-09-05 12:28 | NUR ---
NURSE NOTES: Pt stable noted no resp distress,sleeping quietly in bed.
[2019-09-05] MEDS ORDERED: Tubing IV Secondary IV ONE ×3 (13:46→16:10)
[2019-09-05] MEDS ORDERED: NS 275ml ONE ×2 (13:46→16:10)
--- NOTE | 2019-09-05 14:00 | NUR ---
NURSE NOTES: Pt awake at this time ate a late lunch,placed on 100% NRB Mask.
[2019-09-05 16:00] VITALS: BP 116/70
--- NOTE | 2019-09-05 16:00 | NUR ---
NURSE NOTES: Pt had a large BM to soft brown stools,kept dry and clean,pt turned to sides per self.
--- NOTE | 2019-09-05 18:00 | NUR ---
NURSE NOTES: Pt resting in bed asleep noted no resp dsitress,continue on Bipap.
--- NOTE | 2019-09-05 19:14 | NUR ---
HAND-OFF: Report given to Radha Ventura RN.
--- NOTE | 2019-09-05 19:40 | NUR ---
NURSE NOTES: Received report from Corrine Shaver RN. Pt in stable condition, sinus rhythm, denies any pain at this time. Pt is A&O x 4, on BIPAP 20/10, FiO2 100%. Bed in lowest position, siderails up x 3, bed alarm armed, and call light within reach. Will continue plan of care and close monitoring.
[2019-09-05 20:00] VITALS: BP 142/64
[2019-09-06] VITALS: BP 118/55
--- NOTE | 2019-09-06 02:49 | NUR ---
Pt has pink irritation on skin on the bridge of nose, gel cushion pad placed on bridge of nose and also surrounding areas of lining of bipap mask to prevent any further irritation. RN Radha aware and at pt bedside, RN will make wound care nurse aware. Will continue to monitor patient. No respiratory distress noted, pt denies any discomfort and said " gel padding feels a lot better on his nose and face " .
[2019-09-06 04:00] VITALS: BP 90/50
--- NOTE | 2019-09-06 05:15 | Progress Note ---
DATE: 09/05/2019 CARDIOLOGY AND INTERNAL MEDICINE PROGRESS NOTE SUBJECTIVE: The patient remains on IV antimicrobials, continues to have congestion, and episodes of respiratory distress. Overall improved, however. OBJECTIVE: VITAL SIGNS: Blood pressure 122/64, pulse 94, respiratory rate 20, and afebrile. Presently on BiPAP. LUNGS: Bilateral breath sounds and rhonchi. CARDIAC: Regular rhythm and rate. Normal S1 and S2. ABDOMEN: Soft. EXTREMITIES: No edema. LABORATORY DATA: White count 21 and hemoglobin 9.2. Sodium 137 and potassium 2.9. Magnesium 1.4. BUN 24 and creatinine 1. Albumin 1.4. Pro-natriuretic peptide 453. IMPRESSION: 1. Hypokalemia. 2. Hypomagnesemia. 3. Methicillin-resistant Staphylococcus aureus pneumonia. 4. Hypertensive heart disease. 5. Acute on chronic diastolic congestive heart failure. PLAN: 1. Antimicrobials per Infectious Disease freight traffic consultant. 2. Bronchodilators. 3. Respiratory hygiene. 4. Decrease diuretic to maintenance dosing. 5. Replace potassium and magnesium intravenously for the latter. 6. Taper off BiPAP as able. 7. Repeat chest radiograph. Ar Gomez M.D. DR: SAMM JOB#: [id number] CC:
[2019-09-06 05:44] LABS: HEMATOCRIT 25.3 % (42.0-52.0); HEMOGLOBIN 8.7 G/DL (14.2-18.0); MEAN CORPUSCULAR VOLUME 106 FL (80-99); PLATELET COUNT 92 K/UL (150-450); RED CELL DISTRIBUTION WIDTH 14.5 % (11.6-14.8)
[2019-09-06 05:54] LABS: ANION GAP 0 mmol/L (5-15); BLOOD UREA NITROGEN 21 mg/dL (7-18); CALCIUM 8.2 MG/DL (8.5-10.1); CARBON DIOXIDE 36 MMOL/L (21-32); CHLORIDE 98 MMOL/L (98-107); CREATININE 1.1 MG/DL (0.55-1.30); POTASSIUM 3.5 MMOL/L (3.5-5.1); SODIUM 134 MMOL/L (136-145)
[2019-09-06 06:32] LABS: WHITE BLOOD COUNT 26.5 K/UL (4.8-10.8)
--- NOTE | 2019-09-06 07:30 | NUR ---
NURSE NOTES: late entry: RECEIVED REPORT FROM Radha Lopez PT IN BED, AWAKENS TO NAME. A/O X3. on bipap 20/10, NO C/O PAIN OR SOB. VSS. HAS USED URINAL AT BEDSIDE. ABDOMEN DISTENDED, BOWEL SOUNDS HYPOACTIVE. NO BM. BED ALARM ON, IN LOW POSITION. INFORMED PT OF PLAN OF CARE FOR TODAY. WILL CONTINUE TO MONITOR PT.
--- NOTE | 2019-09-06 07:36 | NUR ---
HAND-OFF: Pt in stable condition, report given to Charisse Urias RN.
[2019-09-06 08:00] VITALS: BP 118/55
[2019-09-06] MEDS: Heparin 5000 units/ml inj SUBQ SCH ×2 (09:00→20:19)
[2019-09-06] MEDS: Solu-MEDROL 40mg Inj IVP SCH (09:01)
[2019-09-06] MEDS: Spironolactone 25mg tab ORAL SCH (09:02)
[2019-09-06] MEDS: Thiamine 100mg tab ORAL SCH (09:02)
--- NOTE | 2019-09-06 09:09 | NUR ---
NURSE NOTES: pt placed on non rebreather to eat meal and medications. pt request Benadryl for itching. sating 70%. pt educated on not eating with bipap, and keeping face mask on between bites. pt states understanding
--- NOTE | 2019-09-06 09:54 | NUR ---
RADIOLOGY DEPT., CHEST X-RAY DONE.-P.DYE
--- NOTE | 2019-09-06 11:52 | NUR ---
RD ASSESSMENT & RECOMMENDATIONS SEE CARE ACTIVITY FOR COMPLETE ASSESSMENT DAILY ESTIMATED NEEDS: Needs based on Liver, Pulmonary 72.2kg 25-30 kcals/kg [id number] total kcals 1-1.5 g protein/kg 72-108 g total protein Fluid per MD NUTRITION DIAGNOSIS: * Decreased sodium and fat needs r/t clinical status, ascites, as evidenced by s/p paracentesis, elev LFT's, elev T bili * Swallowing difficulty R/T dysphagia, respiratory status as evidenced by pt on [facility] soft finely chopped texture, mostly on BIPAP, on non-rebreather during meals. 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
[2019-09-06 12:00] VITALS: BP 110/56
--- NOTE | 2019-09-06 12:00 | NUR ---
NURSE NOTES: late entry: PT PLACED ON NON -REBREATHER FOR MEAL. SATS 80"S W/ [id number]. NO C/O PAIN OR SOB. VSS. URINAL AT BEDSIDE W/ DARK SHAYNA URINE. ABDOMEN DISTENDED. NO BM. ITCHING DECREASED. BED ALARM ON, IN LOW POSITION. WILL CONTINUE TO MONITOR PT.
--- NOTE | 2019-09-06 12:38 | Infectious Diseases Prog Note ---
Assessment/Plan Assessment/Plan IMPRESSION: 1. MRSA pneumonia. 2. Enterobacter UTI that was treated. 3. Cirrhosis with ascites. 4. MRSA colonization. 5. Anemia. 6. Thrombocytopenia. 7. Hypokalemia corrected 8. Hypercapnic respiratory failure. 9. Leukocytosis RECOMMENDATIONS: Start on Levaquin F/U CBC Taper steroids Subjective ROS Limited/Unobtainable: Yes Constitutional: Denies: fever Allergies: Coded Allergies: PENICILLINS (Verified Allergy, Intermediate, Rash, 09/01/19) Patient stated at this time Objective Vital Signs Last 24 Hour Vital Signs Date Time Temp Pulse Resp B/P (MAP) Pulse Ox O2 Delivery O2 Flow Rate FiO2 09/06/19 10:37 100 30 94 Facial 100 09/06/19 08:44 84 25 95 Facial 100 09/06/19 08:00 Bi-pap 09/06/19 08:00 98.4 95 20 118/55 (76) 98 09/06/19 08:00 100 09/06/19 07:39 89 09/06/19 06:54 84 20 96 Facial 100 09/06/19 05:50 91 20 96 Facial 100 09/06/19 04:00 Bi-pap 09/06/19 04:00 100 09/06/19 04:00 70 09/06/19 04:00 98.6 90 20 90/50 (63) 97 09/06/19 03:05 89 20 96 Facial 100 09/06/19 01:02 92 21 97 Facial 100 09/06/19 00:00 98.5 94 20 118/55 (76) 97 09/06/19 00:00 80 09/06/19 00:00 Bi-pap 09/05/19 23:20 89 20 96 Facial 100 09/05/19 21:17 91 23 96 Facial 100 09/05/19 20:00 100 09/05/19 20:00 Bi-pap 09/05/19 20:00 98.6 94 20 142/64 (90) 97 09/05/19 20:00 76 09/05/19 19:00 100 18 96 Facial 100 09/05/19 17:19 76 18 97 Facial 100 09/05/19 16:00 97.5 80 24 116/70 (85) 97 09/05/19 16:00 98 09/05/19 16:00 Bi-pap 09/05/19 16:00 100 09/05/19 12:40 90 28 94 Facial 100 Height (Feet): 5 Height (Inches): 8.00 Weight (Pounds): 150 HEENT: mucous membranes moist Respiratory/Chest: lungs clear Cardiovascular: normal rate Abdomen: distended, other - ascites Extremities: no edema Neurologic/Psychiatric: other - sleeping Laboratory Tests Test 09/06/19 05:05 White Blood Count 26.5 K/UL (4.8-10.8) *H Red Blood Count 2.40 M/UL (4.70-6.10) L Hemoglobin 8.7 G/DL (14.2-18.0) L Hematocrit 25.3 % (42.0-52.0) L Mean Corpuscular Volume 106 FL (80-99) H Mean Corpuscular Hemoglobin 36.2 PG (27.0-31.0) H Mean Corpuscular Hemoglobin Concent 34.3 G/DL (32.0-36.0) Red Cell Distribution Width 14.5 % (11.6-14.8) Platelet Count 92 K/UL (150-450) L Mean Platelet Volume 8.1 FL (6.5-10.1) Neutrophils (%) (Auto) % (45.0-75.0) Lymphocytes (%) (Auto) % (20.0-45.0) Monocytes (%) (Auto) % (1.0-10.0) Eosinophils (%) (Auto) % (0.0-3.0) Basophils (%) (Auto) % (0.0-2.0) Differential Total Cells Counted 100 Neutrophils % (Manual) 86 % (45-75) H Lymphocytes % (Manual) 7 % (20-45) L Monocytes % (Manual) 3 % (1-10) Eosinophils % (Manual) 4 % (0-3) H Basophils % (Manual) 0 % (0-2) Band Neutrophils 0 % (0-8) Platelet Estimate Decreased L Platelet Morphology Normal Hypochromasia 2+ Anisocytosis 1+ Macrocytosis 1+ Sodium Level 134 MMOL/L (136-145) L Potassium Level 3.5 MMOL/L (3.5-5.1) Chloride Level 98 MMOL/L (98-107) Carbon Dioxide Level 36 MMOL/L (21-32) H Anion Gap 0 mmol/L (5-15) L Blood Urea Nitrogen 21 mg/dL (7-18) H Creatinine 1.1 MG/DL (0.55-1.30) Estimat Glomerular Filtration Rate > 60 mL/min (>60) Glucose Level 94 MG/DL (74-106) Calcium Level 8.2 MG/DL (8.5-10.1) L Current Medications Medications (Trade) Dose Ordered Sig/Akash Route PRN Reason Start Time Stop Time Status Last Admin Dose Admin Acetaminophen (Tylenol) 650 mg Q4H PRN ORAL Mild Pain/Temp > 100.5 08/28/19 07:00 09/22/19 10:59 09/05/19 21:25 Furosemide (Lasix) 40 mg DAILY IV 09/06/19 09:00 10/06/19 08:59 09/06/19 09:02 Guaifenesin/ Dextromethorphan (Robitussin DM Syrup) 5 ml Q4H PRN ORAL For Cough 08/28/19 06:15 09/26/19 06:14 Heparin Sodium (Porcine) (Heparin 5000 units/ml) 5,000 units EVERY 12 HOURS SUBQ 08/29/19 09:30 09/28/19 09:29 08/31/19 08:55 Methylprednisolone Sodium Succinate (Solu-MEDROL) 40 mg DAILY IVP 09/06/19 09:00 10/06/19 08:59 09/06/19 09:01 Multivitamins (Multivitamins) 1 tab DAILY ORAL 08/28/19 09:00 09/22/19 08:59 09/06/19 09:02 Nicotine (Nicoderm) 1 patch Q24H TDERMAL 08/28/19 16:00 09/23/19 15:59 09/05/19 16:17 Ondansetron HCl (Zofran) 4 mg Q6H PRN IVP Nausea & Vomiting 08/28/19 09:30 09/22/19 03:29 Pantoprazole (Protonix) 40 mg DAILY ORAL 08/28/19 09:00 09/22/19 08:59 09/06/19 09:02 Spironolactone (Aldactone) 25 mg DAILY ORAL 08/28/19 09:00 09/24/19 08:59 09/06/19 09:02 Thiamine HCl (Vitamin B1) 100 mg DAILY ORAL 08/28/19 09:00 09/22/19 08:59 09/06/19 09:02 Jamie Swanson MD Sep 06, 2019 12:38
--- NOTE | 2019-09-06 12:50 | NUR ---
NURSE NOTES: LATE ENTRY: MD Bg ARCHIBALD HERE TO SEE PT. WAS INFORMED OF PT WBC 26.5, PLT 92. WILL PLACE ORDER FOR ABX.
[2019-09-06] MEDS: Levofloxacin 750mg tab ORAL SCH (13:29)
[2019-09-06] MEDS ORDERED: NS 275ml ONE (13:51)
--- NOTE | 2019-09-06 14:06 | Diagnostic Imaging Report ---
Indication: Dyspnea Comparison: 09/02/2019 A single view chest radiograph was obtained. Findings: Pulmonary vascular congestion demonstrated. Heart size is normal. No pleural effusion seen. Bones are unremarkable. IMPRESSION: Moderate CHF.
[2019-09-06] MEDS ORDERED: Omnipaue 350mg/ml 100ml vial INJ PRN (14:30)
--- NOTE | 2019-09-06 14:30 | NUR ---
NURSE NOTES: LATE ENTRY: MD GUERRA HERE TO SEE PT. WILL PLACE ORDER FOR CARLOS BEDOYA.
[2019-09-06 15:15] LABS: APPEARANCE,URINE CLEAR; BILIRUBIN, URINE NEGATIVE (NEGATIVE); GLUCOSE, URINE (UA) NEGATIVE (NEGATIVE); KETONES,URINE NEGATIVE (NEGATIVE); LEUKOCYTE ESTERASE ,URINE NEGATIVE (NEGATIVE); NITRITE,URINE NEGATIVE (NEGATIVE); PH,URINE 6.5 (4.5-8.0); PROTEIN,URINE NEGATIVE (NEGATIVE); UROBILINOGEN,URINE 1 MG/DL (0.0-1.0)
[2019-09-06 15:26] LABS: COLOR,URINE YELLOW
[2019-09-06 16:00] VITALS: BP 128/68
--- NOTE | 2019-09-06 16:36 | NUR ---
CASE MANAGEMENT:REVIEW 09/02/19 SI:AMS D/T PCP. ENTEROBACTER UTI RESPIRATORY FAILURE 97.9 90 30 110/56 98% ON BIPAP @100% FIO2 WBC+26.5 H/H-8.7/25.3 IS: IV SOLUMEDROL QD LEVAQUIN PO QD IV LASIX QD HEPARIN SQ Q12 ALDACTONE PO QD : STEP DOWN UNIT PLAN: CTA CHEST Addendum: 09/07/19 at 1438 by ALEJANDRA HELM, BERNARD WAGNER ABOVE REVIEW FOR 09/06/19....PLEASE MAKE NOTE
--- NOTE | 2019-09-06 18:50 | NUR ---
NURSE NOTES: LATE ENTRY: PT WILL EAT BUT AT LATER TIME, FEELS FATIGUED. A FEBRILE VSS. CALL LIGHT IN REACH BED ALARM ON.
--- NOTE | 2019-09-06 19:10 | NUR ---
NURSE NOTES: received pt from Charisse NAJERA., pt is sleeping and resting on the bed. pt shows no s/s of pain or SOB. pt seems comfortable with BIPAP. O2sat is at 98% at this moment Left AC 22G and Right AC 20G are clean, intact,and patent. bed at the lowest position, alarmed, and locked. call light within reach. will continue to monitor pt with plan of care.
[2019-09-06 20:00] VITALS: BP 90/55
[2019-09-07] VITALS: BP 103/55
--- NOTE | 2019-09-07 03:00 | Progress Note ---
DATE: 09/06/2019 CARDIOLOGY PROGRESS NOTE SUBJECTIVE: The patient remains short of breath and hypoxic on high flow oxygen. White count is increasing, although he is on steroids. Secretions are not increased. Chest x-ray was reviewed. Pulmonary infiltrate is suspected rather than edema. Echocardiogram revealed normal ejection fraction. OBJECTIVE: VITAL SIGNS: Blood pressure 90/55, pulse 92, respiratory rate 20. LUNGS: Bilateral breath sounds. Rhonchi. Accessory muscle use noted. CARDIAC: Regular rhythm and rate. Normal S1 and S2. EXTREMITIES: No edema. LABORATORY DATA: As noted, CT angiogram of the chest was requested, however, the patient's condition and hypoxia exam to be done safely. IMPRESSION: 1. Hypoxia. 2. Acute respiratory insufficiency. 3. Pulmonary infiltrates. 4. Substance abuse. 5. Leukocytosis. 6. Anemia. PLAN: 1. Antimicrobials per Infectious Disease foreign law consultant. 2. CAT scan imaging when able. 3. Venous duplex scan. 4. Taper oxygen and steroids. 5. Maintenance diuretic dose. Ar Gomez M.D. DR: DORIAN JOB#: [id number] CC:
--- NOTE | 2019-09-07 03:20 | NUR ---
HAND-OFF: Report given to Renzo Rivera RN. pt is in stable condition
--- NOTE | 2019-09-07 03:22 | NUR ---
NURSE NOTES: Received report from REINALDO Keating. Pt is sleeping on the bed and no sign of acute distress noted. On BiPAP setting with 20/10, FiO2 100% and SaO2 98-99% noted. On tele monitor with SR. IV site intact and no sign of infiltration noted. Placed fall precaution. Will continue to care plan.
[2019-09-07 04:00] VITALS: BP 107/51
[2019-09-07 05:43] LABS: ALANINE AMINOTRANSFERASE 50 U/L (12-78); ALBUMIN 1.5 G/DL (3.4-5.0); ALBUMIN/GLOBULIN RATIO 0.3 (1.0-2.7); ALKALINE PHOSPHATASE 115 U/L (46-116); ANION GAP 0 mmol/L (5-15); ASPARTATE AMINO TRANSFERASE 62 U/L (15-37); BILIRUBIN,TOTAL 1.5 MG/DL (0.2-1.0); BLOOD UREA NITROGEN 21 mg/dL (7-18); CALCIUM 8.5 MG/DL (8.5-10.1); CARBON DIOXIDE 39 MMOL/L (21-32); CHLORIDE 98 MMOL/L (98-107); CREATININE 0.9 MG/DL (0.55-1.30); POTASSIUM 3.4 MMOL/L (3.5-5.1); SODIUM 137 MMOL/L (136-145)
[2019-09-07 06:00] LABS: BILIRUBIN,DIRECT 0.9 MG/DL (0.0-0.3)
--- NOTE | 2019-09-07 07:15 | NUR ---
NURSE NOTES: Received report from Camden Rivera RN. Patient asleep in bed, opens eyes spontaneously, oriented x 2, able to follow commands and make needs known. Receiving O2 via bi-pap with settings of 20/10, FiO2 100%, no s/s of respiratory distress noted. Left AC 22g and right AC 20g saline locks patent and asymptomatic. Bed locked in lowest position with side rails up x 3. All needs attended to. Call light within reach. Will continue to monitor.
--- NOTE | 2019-09-07 07:35 | NUR ---
HAND-OFF: Report given to REINALDO Landrum. Pt is resting on the bed and tolerated well with current Vent setting. No sign of acute distress noted.
[2019-09-07 08:00] VITALS: BP 104/67
[2019-09-07] MEDS: Thiamine 100mg tab ORAL SCH (08:53)
[2019-09-07] MEDS: Spironolactone 25mg tab ORAL SCH (08:53)
[2019-09-07] MEDS: Solu-MEDROL 40mg Inj IVP SCH (08:53)
[2019-09-07] MEDS: Heparin 5000 units/ml inj SUBQ SCH ×2 (08:54→21:00)
[2019-09-07] MEDS: Levofloxacin 750mg tab ORAL SCH (09:00)
[2019-09-07 09:28] LABS: HEMATOCRIT 25.8 % (42.0-52.0); HEMOGLOBIN 8.7 G/DL (14.2-18.0); MEAN CORPUSCULAR VOLUME 107 FL (80-99); PLATELET COUNT 108 K/UL (150-450); RED BLOOD COUNT 2.42 M/UL (4.70-6.10); RED CELL DISTRIBUTION WIDTH 14.9 % (11.6-14.8); WHITE BLOOD COUNT 26.3 K/UL (4.8-10.8)
--- NOTE | 2019-09-07 09:29 | NUR ---
NURSE NOTES: WBC of 26.[address] Leavitt, patient is afebrile. K 3.[address] Leavitt to place orders for K replacement and cultures.
[2019-09-07] MEDS ORDERED: NS 275ml ONE (09:47)
--- NOTE | 2019-09-07 10:16 | NUR ---
RADIOLOGY DEPT., CHEST X-RAY DONE.-P.DYE
--- NOTE | 2019-09-07 10:36 | Infectious Diseases Prog Note ---
Assessment/Plan Assessment/Plan antibiotics : levoquin A 1. MRSA pneumonia 2. respiratory failure 3. enterobacter UTI s/p rx 4. cirrhosis 5. ascites s/p paracentesis no SBP 6. thrombocytopenia 7. leucocytosis likely secondary to steroids P 1. d/c levoquin 2. observe off antibiotics Subjective ROS Limited/Unobtainable: Yes Allergies: Coded Allergies: PENICILLINS (Verified Allergy, Intermediate, Rash, 09/01/19) Patient stated at this time Objective Vital Signs Last 24 Hour Vital Signs Date Time Temp Pulse Resp B/P (MAP) Pulse Ox O2 Delivery O2 Flow Rate FiO2 09/07/19 08:50 98 28 99 Facial 100 09/07/19 08:00 100 09/07/19 08:00 97.7 98 19 104/67 (79) 99 09/07/19 07:57 103 09/07/19 07:28 99 26 96 Facial 100 09/07/19 05:30 82 24 96 Facial 100 09/07/19 04:00 Bi-pap 09/07/19 04:00 97.6 94 24 107/51 (69) 99 09/07/19 04:00 92 09/07/19 04:00 100 09/07/19 03:30 86 35 98 Facial 100 09/07/19 01:30 89 36 100 Facial 100 09/07/19 00:00 97.9 95 25 103/55 (71) 99 09/07/19 00:00 100 09/07/19 00:00 Bi-pap 09/07/19 00:00 102 09/06/19 23:30 91 17 94 Facial 100 09/06/19 21:30 90 16 96 Facial 100 09/06/19 20:00 98.0 92 20 90/55 (67) 99 09/06/19 20:00 Bi-pap 09/06/19 20:00 92 09/06/19 20:00 100 09/06/19 19:30 92 14 95 Facial 100 09/06/19 17:03 96 15 97 Facial 100 09/06/19 16:00 100 09/06/19 16:00 98.4 94 20 128/68 (88) 92 09/06/19 16:00 Bi-pap 09/06/19 15:27 101 09/06/19 15:11 103 21 94 Facial 100 09/06/19 13:15 102 21 97 Facial 100 09/06/19 12:00 100 09/06/19 12:00 95 09/06/19 12:00 97.9 90 20 110/56 (74) 98 09/06/19 12:00 Bi-pap 09/06/19 10:37 100 30 94 Facial 100 Height (Feet): 5 Height (Inches): 8.00 Weight (Pounds): 147 HEENT: other - on bipap Respiratory/Chest: lungs clear Cardiovascular: normal rate, regular rhythm, no gallop/murmur Abdomen: soft, non tender Extremities: no edema Laboratory Tests Test 09/06/19 14:30 09/07/19 03:45 Urine Color Yellow Urine Appearance Clear Urine pH 6.5 (4.5-8.0) Urine Specific [place] 1.010 (1.005-1.035) Urine Protein Negative (NEGATIVE) Urine Glucose (UA) Negative (NEGATIVE) Urine Ketones Negative (NEGATIVE) Urine Blood 3+ (NEGATIVE) H Urine Nitrite Negative (NEGATIVE) Urine Bilirubin Negative (NEGATIVE) Urine Urobilinogen 1 MG/DL (0.0-1.0) H Urine Leukocyte Esterase Negative (NEGATIVE) Urine RBC 5-10 /HPF (0 - 0) H Urine WBC 2-4 /HPF (0 - 0) Urine Squamous Epithelial Cells None /LPF (NONE/OCC) Urine Bacteria Few /HPF (NONE) White Blood Count 26.3 K/UL (4.8-10.8) *H Red Blood Count 2.42 M/UL (4.70-6.10) L Hemoglobin 8.7 G/DL (14.2-18.0) L Hematocrit 25.8 % (42.0-52.0) L Mean Corpuscular Volume 107 FL (80-99) H Mean Corpuscular Hemoglobin 36.1 PG (27.0-31.0) H Mean Corpuscular Hemoglobin Concent 33.8 G/DL (32.0-36.0) Red Cell Distribution Width 14.9 % (11.6-14.8) H Platelet Count 108 K/UL (150-450) L Mean Platelet Volume 7.2 FL (6.5-10.1) Neutrophils (%) (Auto) % (45.0-75.0) Lymphocytes (%) (Auto) % (20.0-45.0) Monocytes (%) (Auto) % (1.0-10.0) Eosinophils (%) (Auto) % (0.0-3.0) Basophils (%) (Auto) % (0.0-2.0) Differential Total Cells Counted 100 Neutrophils % (Manual) 79 % (45-75) H Lymphocytes % (Manual) 12 % (20-45) L Monocytes % (Manual) 5 % (1-10) Eosinophils % (Manual) 4 % (0-3) H Basophils % (Manual) 0 % (0-2) Band Neutrophils 0 % (0-8) Platelet Estimate Decreased L Platelet Morphology Normal Anisocytosis 1+ Macrocytosis 1+ Sodium Level 137 MMOL/L (136-145) Potassium Level 3.4 MMOL/L (3.5-5.1) L Chloride Level 98 MMOL/L (98-107) Carbon Dioxide Level 39 MMOL/L (21-32) H Anion Gap 0 mmol/L (5-15) L Blood Urea Nitrogen 21 mg/dL (7-18) H Creatinine 0.9 MG/DL (0.55-1.30) Estimat Glomerular Filtration Rate > 60 mL/min (>60) Glucose Level 80 MG/DL (74-106) Calcium Level 8.5 MG/DL (8.5-10.1) Magnesium Level 1.9 MG/DL (1.8-2.4) Total Bilirubin 1.5 MG/DL (0.2-1.0) H Direct Bilirubin 0.9 MG/DL (0.0-0.3) H Aspartate Amino Transf (AST/SGOT) 62 U/L (15-37) H Alanine Aminotransferase (ALT/SGPT) 50 U/L (12-78) Alkaline Phosphatase 115 U/L (46-116) Pro-B-Type Natriuretic Peptide 468 pg/mL (0-125) H Total Protein 6.0 G/DL (6.4-8.2) L Albumin 1.5 G/DL (3.4-5.0) L Globulin 4.5 g/dL Albumin/Globulin Ratio 0.3 (1.0-2.7) L Vitamin B12 Level 1989 PG/ML (193-986) H Folate 18.7 NG/ML (8.6-58.9) Thyroid Stimulating Hormone (TSH) 8.970 uiU/mL (0.358-3.740) HIV (1&2) Antibody Rapid Negative (NEGATIVE) Current Medications Medications (Trade) Dose Ordered Sig/Kaash Route PRN Reason Start Time Stop Time Status Last Admin Dose Admin Acetaminophen (Tylenol) 650 mg Q4H PRN ORAL Mild Pain/Temp > 100.5 08/28/19 07:00 09/22/19 10:59 09/07/19 04:09 Diphenhydramine HCl (Benadryl) 25 mg Q6H PRN ORAL Itching 09/06/19 14:15 10/06/19 14:14 09/07/19 06:22 Furosemide (Lasix) 40 mg DAILY IV 09/06/19 09:00 10/06/19 08:59 09/07/19 08:52 Guaifenesin/ Dextromethorphan (Robitussin DM Syrup) 5 ml Q4H PRN ORAL For Cough 08/28/19 06:15 09/26/19 06:14 Heparin Sodium (Porcine) (Heparin 5000 units/ml) 5,000 units EVERY 12 HOURS SUBQ 08/29/19 09:30 09/28/19 09:29 08/31/19 08:55 Iohexol (Omnipaque) 100 mg NOW PRN INJ Radiology Procedure 09/06/19 14:30 09/08/19 14:25 Levofloxacin (Levaquin) 750 mg DAILY ORAL 09/06/19 13:30 09/13/19 13:29 09/07/19 09:00 Methylprednisolone Sodium Succinate (Solu-MEDROL) 40 mg DAILY IVP 09/06/19 09:00 10/06/19 08:59 09/07/19 08:53 Multivitamins (Multivitamins) 1 tab DAILY ORAL 08/28/19 09:00 09/22/19 08:59 09/07/19 08:53 Nicotine (Nicoderm) 1 patch Q24H TDERMAL 08/28/19 16:00 09/23/19 15:59 09/06/19 15:50 Ondansetron HCl (Zofran) 4 mg Q6H PRN IVP Nausea & Vomiting 08/28/19 09:30 09/22/19 03:29 Pantoprazole (Protonix) 40 mg DAILY ORAL 08/28/19 09:00 09/22/19 08:59 09/07/19 08:53 Spironolactone (Aldactone) 25 mg DAILY ORAL 08/28/19 09:00 09/24/19 08:59 09/07/19 08:53 Thiamine HCl (Vitamin B1) 100 mg DAILY ORAL 08/28/19 09:00 09/22/19 08:59 09/07/19 08:53 Morena Erazo MD Sep 07, 2019 10:36
[2019-09-07 12:00] VITALS: BP 93/41
--- NOTE | 2019-09-07 12:26 | Diagnostic Imaging Report ---
Indication: Dyspnea Comparison: 09/06/2019 A single view chest radiograph was obtained. Findings: There is enlargement of the cardiac silhouette with pulmonary vascular redistribution and prominence, hazy vessel margins and the suggestion of interstitial edema consistent with CHF. No definite pleural effusions are identified. IMPRESSION: Worsening congestive heart failure
--- NOTE | 2019-09-07 13:16 | General Progress Note ---
Assessment/Plan Problem List: (1) AMS (altered mental status) ICD Codes: R41.82 - Altered mental status, unspecified SNOMED: [id number] Status: stable Assessment/Plan: iv abx bipap follow up cxr diuresis critical and guarded Subjective ROS Limited/Unobtainable: No Constitutional: Reports: malaise, weakness HEENT: Reports: no symptoms Cardiovascular: Reports: no symptoms Respiratory: Reports: cough Gastrointestinal/Abdominal: Reports: no symptoms Genitourinary: Reports: no symptoms Neurologic/Psychiatric: Reports: anxiety, pre-existing deficit Endocrine: Reports: no symptoms Hematologic/Lymphatic: Reports: anemia Allergies: Coded Allergies: PENICILLINS (Verified Allergy, Intermediate, Rash, 09/01/19) Patient stated at this time All Systems: reviewed and negative except above Subjective on bipap. appears more comfortable. labs noted. desaturates of bipap. Objective Last 24 Hour Vital Signs Date Time Temp Pulse Resp B/P (MAP) Pulse Ox O2 Delivery O2 Flow Rate FiO2 09/07/19 13:00 105 27 100 Facial 100 09/07/19 12:00 100 09/07/19 12:00 98.1 96 20 93/41 (58) 99 09/07/19 11:29 99 25 100 Facial 100 09/07/19 08:50 98 28 99 Facial 100 09/07/19 08:00 100 09/07/19 08:00 Bi-pap 09/07/19 08:00 97.7 98 19 104/67 (79) 99 09/07/19 07:57 103 09/07/19 07:28 99 26 96 Facial 100 09/07/19 05:30 82 24 96 Facial 100 09/07/19 04:00 Bi-pap 09/07/19 04:00 97.6 94 24 107/51 (69) 99 09/07/19 04:00 92 09/07/19 04:00 100 09/07/19 03:30 86 35 98 Facial 100 09/07/19 01:30 89 36 100 Facial 100 09/07/19 00:00 97.9 95 25 103/55 (71) 99 09/07/19 00:00 100 09/07/19 00:00 Bi-pap 09/07/19 00:00 102 09/06/19 23:30 91 17 94 Facial 100 12/23/19 21:30 90 16 96 Facial 100 09/06/19 20:00 98.0 92 20 90/55 (67) 99 09/06/19 20:00 Bi-pap 09/06/19 20:00 92 09/06/19 20:00 100 09/06/19 19:30 92 14 95 Facial 100 09/06/19 17:03 96 15 97 Facial 100 09/06/19 16:00 100 09/06/19 16:00 98.4 94 20 128/68 (88) 92 09/06/19 16:00 Bi-pap 09/06/19 15:27 101 09/06/19 15:11 103 21 94 Facial 100 Intake and Output 09/06/19 09/07/19 19:00 07:00 Intake Total 380 ml 400 ml Output Total 700 ml 600 ml Balance -320 ml -200 ml Intake Oral 380 ml 400 ml Output Urine Total 700 ml 600 ml Laboratory Tests 09/06/19 14:30: Urine Color Yellow, Urine Appearance Clear, Urine pH 6.5, Urine Specific [place] 1.010, Urine Protein Negative, Urine Glucose (UA) Negative, Urine Ketones Negative, Urine Blood 3+H, Urine Nitrite Negative, Urine Bilirubin Negative, Urine Urobilinogen 1H, Urine Leukocyte Esterase Negative, Urine RBC 5- 10H, Urine WBC 2-4, Urine Squamous Epithelial Cells None, Urine Bacteria Few 09/07/19 03:45: White Blood Count 26.3*H, Red Blood Count 2.42L, Hemoglobin 8.7L, Hematocrit 25.8L, Mean Corpuscular Volume 107H, Mean Corpuscular Hemoglobin 36.1H, Mean Corpuscular Hemoglobin Concent 33.8, Red Cell Distribution Width 14.9H, Platelet Count 108L, Mean Platelet Volume 7.2, Neutrophils (%) (Auto) , Lymphocytes (%) (Auto) , Monocytes (%) (Auto) , Eosinophils (%) (Auto) , Basophils (%) (Auto) , Differential Total Cells Counted 100, Neutrophils % ( Manual) 79H, Lymphocytes % (Manual) 12L, Monocytes % (Manual) 5, Eosinophils % ( Manual) 4H, Basophils % (Manual) 0, Band Neutrophils 0, Platelet Estimate DecreasedL, Platelet Morphology Normal, Anisocytosis 1+, Macrocytosis 1+, Sodium Level 137, Potassium Level 3.4L, Chloride Level 98, Carbon Dioxide Level 39H, Anion Gap 0L, Blood Urea Nitrogen 21H, Creatinine 0.9, Estimat Glomerular Filtration Rate > 60, Glucose Level 80, Calcium Level 8.5, Magnesium Level 1.9, Total Bilirubin 1.5H, Direct Bilirubin 0.9H, Aspartate Amino Transf (AST/SGOT) 62H, Alanine Aminotransferase (ALT/SGPT) 50, Alkaline Phosphatase 115, Pro-B- Type Natriuretic Peptide 468H, Total Protein 6.0L, Albumin 1.5L, Globulin 4.5, Albumin/Globulin Ratio 0.3L, Vitamin B12 Level 1989H, Folate 18.7, Thyroid Stimulating Hormone (TSH) 8.970H, HIV (1&2) Antibody Rapid Negative Height (Feet): 5 Height (Inches): 8.00 Weight (Pounds): 147 Objective General Appearance: WD/WN, lethargic. on bipap. Neck: supple Cardiovascular: regular rhythm Respiratory/Chest: lungs td rhonchi Abdomen: normal bowel sounds, non tender. small reducible periumbilical hernia Edema: no edema noted Arm (L), no edema noted Arm (R), no edema noted Leg (L), no edema noted Leg (R), no edema noted Pedal (L), no edema noted Pedal (R), no edema noted Generalized Henry Leavitt MD Sep 07, 2019 13:16
--- NOTE | 2019-09-07 13:26 | NUR ---
NURSE NOTES: Patient noted to be tachycardic with HR of 160s, sustained. Patient off bi-pap for lunch, no respiratory distress noted. Patient placed back on bi-pap with previous settings. Dr. Leavitt notified and received order for NS 250 cc bolus.
[2019-09-07] MEDS ORDERED: NS 250 ML IVPB ONE (13:30)
--- NOTE | 2019-09-07 13:39 | NUR ---
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 EKG done. Dr. Leavitt notified.
--- NOTE | 2019-09-07 14:33 | Pulmonology Progress Note ---
Assessment/Plan Assessment/Plan Pulmonary Consultation: HPI Patient is a 49-year-old man admitted with altered mental status, MRSA Pneumonia. History of alcohol use. History is limited due to patient's mental status changes. Noted to have Heart Failure with hypoxic respiratory failure, on PRN BiPAP Allergies: Penicillin PMH: Hernia, Cirrhosis All Other Systems: limited - Unable to obtain due to mental status changes Physical Exam Vital Signs Noted General Appearance: no apparent distress, alert, non-toxic, PRN Bipap Head: normocephalic, atraumatic Eyes: bilateral eye normal inspection ENT: hearing grossly normal, EOM grossly intact, moist mucus membranes Neck: supple Respiratory: occasional rhonchi Cardiovascular: regular rate, rhythm, normal capillary refill Gastrointestinal: soft, mild distention, ascites, hernia Rectal: deferred Musculoskeletal: moves extremities spontaneously, no lower extremity edema Neurologic: Awake no gross deficits noted, 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 fib Rate: other - 90s Rhythm: other - A. fib ST Segments: other - QT segment 408, QTc 499 CXR: Pulmonary Congestion CT Head no Contrast No acute intracranial process Subjective ROS Limited/Unobtainable: No Allergies: Coded Allergies: PENICILLINS (Verified Allergy, Intermediate, Rash, 09/01/19) Patient stated at this time Objective Last 24 Hour Vital Signs Date Time Temp Pulse Resp B/P (MAP) Pulse Ox O2 Delivery O2 Flow Rate FiO2 09/07/19 13:00 105 27 100 Facial 100 09/07/19 12:00 100 09/07/19 12:00 98.1 96 20 93/41 (58) 99 09/07/19 11:43 105 09/07/19 11:29 99 25 100 Facial 100 09/07/19 08:50 98 28 99 Facial 100 09/07/19 08:00 100 09/07/19 08:00 Bi-pap 09/07/19 08:00 97.7 98 19 104/67 (79) 99 09/07/19 07:57 103 09/07/19 07:28 99 26 96 Facial 100 09/07/19 05:30 82 24 96 Facial 100 09/07/19 04:00 Bi-pap 09/07/19 04:00 97.6 94 24 107/51 (69) 99 09/07/19 04:00 92 09/07/19 04:00 100 09/07/19 03:30 86 35 98 Facial 100 09/07/19 01:30 89 36 100 Facial 100 09/07/19 00:00 97.9 95 25 103/55 (71) 99 09/07/19 00:00 100 09/07/19 00:00 Bi-pap 09/07/19 00:00 102 09/06/19 23:30 91 17 94 Facial 100 09/06/19 21:30 90 16 96 Facial 100 09/06/19 20:00 98.0 92 20 90/55 (67) 99 09/06/19 20:00 Bi-pap 09/06/19 20:00 92 09/06/19 20:00 100 09/06/19 19:30 92 14 95 Facial 100 09/06/19 17:03 96 15 97 Facial 100 09/06/19 16:00 100 09/06/19 16:00 98.4 94 20 128/68 (88) 92 09/06/19 16:00 Bi-pap 09/06/19 15:27 101 09/06/19 15:11 103 21 94 Facial 100 Intake and Output 09/06/19 09/07/19 19:00 07:00 Intake Total 380 ml 400 ml Output Total 700 ml 600 ml Balance -320 ml -200 ml Intake Oral 380 ml 400 ml Output Urine Total 700 ml 600 ml Laboratory Tests 09/06/19 14:30: Urine Color Yellow, Urine Appearance Clear, Urine pH 6.5, Urine Specific [place] 1.010, Urine Protein Negative, Urine Glucose (UA) Negative, Urine Ketones Negative, Urine Blood 3+H, Urine Nitrite Negative, Urine Bilirubin Negative, Urine Urobilinogen 1H, Urine Leukocyte Esterase Negative, Urine RBC 5- 10H, Urine WBC 2-4, Urine Squamous Epithelial Cells None, Urine Bacteria Few 09/07/19 03:45: White Blood Count 26.3*H, Red Blood Count 2.42L, Hemoglobin 8.7L, Hematocrit 25.8L, Mean Corpuscular Volume 107H, Mean Corpuscular Hemoglobin 36.1H, Mean Corpuscular Hemoglobin Concent 33.8, Red Cell Distribution Width 14.9H, Platelet Count 108L, Mean Platelet Volume 7.2, Neutrophils (%) (Auto) , Lymphocytes (%) (Auto) , Monocytes (%) (Auto) , Eosinophils (%) (Auto) , Basophils (%) (Auto) , Differential Total Cells Counted 100, Neutrophils % ( Manual) 79H, Lymphocytes % (Manual) 12L, Monocytes % (Manual) 5, Eosinophils % ( Manual) 4H, Basophils % (Manual) 0, Band Neutrophils 0, Platelet Estimate DecreasedL, Platelet Morphology Normal, Anisocytosis 1+, Macrocytosis 1+, Sodium Level 137, Potassium Level 3.4L, Chloride Level 98, Carbon Dioxide Level 39H, Anion Gap 0L, Blood Urea Nitrogen 21H, Creatinine 0.9, Estimat Glomerular Filtration Rate > 60, Glucose Level 80, Calcium Level 8.5, Magnesium Level 1.9, Total Bilirubin 1.5H, Direct Bilirubin 0.9H, Aspartate Amino Transf (AST/SGOT) 62H, Alanine Aminotransferase (ALT/SGPT) 50, Alkaline Phosphatase 115, Pro-B- Type Natriuretic Peptide 468H, Total Protein 6.0L, Albumin 1.5L, Globulin 4.5, Albumin/Globulin Ratio 0.3L, Vitamin B12 Level 1989H, Folate 18.7, Thyroid Stimulating Hormone (TSH) 8.970H, HIV (1&2) Antibody Rapid Negative Current Medications Medications (Trade) Dose Ordered Sig/Akash Route PRN Reason Start Time Stop Time Status Last Admin Dose Admin Acetaminophen (Tylenol) 650 mg Q4H PRN ORAL Mild Pain/Temp > 100.5 08/28/19 07:00 09/22/19 10:59 09/07/19 04:09 Diphenhydramine HCl (Benadryl) 25 mg Q6H PRN ORAL Itching 09/06/19 14:15 10/06/19 14:14 09/07/19 06:22 Furosemide (Lasix) 40 mg DAILY IV 09/06/19 09:00 10/06/19 08:59 09/07/19 08:52 Guaifenesin/ Dextromethorphan (Robitussin DM Syrup) 5 ml Q4H PRN ORAL For Cough 08/28/19 06:15 09/26/19 06:14 Heparin Sodium (Porcine) (Heparin 5000 units/ml) 5,000 units EVERY 12 HOURS SUBQ 08/29/19 09:30 09/28/19 09:29 08/31/19 08:55 Iohexol (Omnipaque) 100 mg NOW PRN INJ Radiology Procedure 09/06/19 14:30 09/08/19 14:25 Methylprednisolone Sodium Succinate (Solu-MEDROL) 40 mg DAILY IVP 09/06/19 09:00 10/06/19 08:59 09/07/19 08:53 Multivitamins (Multivitamins) 1 tab DAILY ORAL 08/28/19 09:00 09/22/19 08:59 09/07/19 08:53 Nicotine (Nicoderm) 1 patch Q24H TDERMAL 08/28/19 16:00 09/23/19 15:59 09/06/19 15:50 Ondansetron HCl (Zofran) 4 mg Q6H PRN IVP Nausea & Vomiting 08/28/19 09:30 09/22/19 03:29 Pantoprazole (Protonix) 40 mg DAILY ORAL 08/28/19 09:00 09/22/19 08:59 09/07/19 08:53 Spironolactone (Aldactone) 25 mg DAILY ORAL 08/28/19 09:00 09/24/19 08:59 09/07/19 08:53 Thiamine HCl (Vitamin B1) 100 mg DAILY ORAL 08/28/19 09:00 09/22/19 08:59 09/07/19 08:53 Ar Cook MD Sep 07, 2019 14:33
--- NOTE | 2019-09-07 14:38 | NUR ---
CASE MANAGEMENT:REVIEW 09/07/19 SI:AMS D/T PCP. ENTEROBACTER UTI RESPIRATORY FAILURE 98.1 105 27 93/41 100% ON BIPAP @100% FIO2 WBC+26.3 H/H-8.7/25.8 PLT-108 IS: IV SOLUMEDROL QD LEVAQUIN PO QD IV LASIX QD HEPARIN SQ Q12 ALDACTONE PO QD : STEP DOWN UNIT
--- NOTE | 2019-09-07 15:10 | NUR ---
NURSE NOTES: Dr. Gomez notified of patient's episode of sinus tachycardia 160s, corrected with NS bolus. Informed of patient's baseline BP and currently on Lasix IV. EKG shown. Per Dr. Gomez, he will place orders to stop Lasix.
--- NOTE | 2019-09-07 15:35 | NUR ---
NURSE NOTES: Patient examined by Dr. Cook. Received order to keep patient's O2 sat between 90-96% and do ABG.
--- NOTE | 2019-09-07 15:59 | NUR ---
NURSE NOTES: ABG results reported to Dr. Cook, no new orders received.
[2019-09-07 16:00] VITALS: BP 92/56
[2019-09-07 16:10] LABS: APPEARANCE,URINE CLEAR; BILIRUBIN, URINE NEGATIVE (NEGATIVE); GLUCOSE, URINE (UA) NEGATIVE (NEGATIVE); KETONES,URINE NEGATIVE (NEGATIVE); LEUKOCYTE ESTERASE ,URINE NEGATIVE (NEGATIVE); NITRITE,URINE NEGATIVE (NEGATIVE); PH,URINE 6.5 (4.5-8.0); PROTEIN,URINE NEGATIVE (NEGATIVE); UROBILINOGEN,URINE 1 MG/DL (0.0-1.0)
[2019-09-07 16:14] LABS: COLOR,URINE YELLOW
--- NOTE | 2019-09-07 19:13 | NUR ---
HAND-OFF: Report given to Herman Morillo RN. Patient in stable condition, tolerating bi-pap at FiO2 80%. No s/s of respiratory distress noted.
--- NOTE | 2019-09-07 19:32 | NUR ---
NURSE NOTES: Received patient from REINALDO Landrum. patient is observed sleeping in bed, AO X3, no s/sx of pain noted at this time. patient is currently on BiPAP with settings of 20/10, FiO2: 80%. tolerating well, saturating at 98%, no s/sx of respiratory distress noted at this time. 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 no acute cardiac distress noted. LAC 22g and RAC 22g IV sites noted, patent and intact, asymptomatic. bed in lowest position and locked, siderails up X3, call light within reach. will continue to monitor.
[2019-09-07 20:00] VITALS: BP 100/59
--- NOTE | 2019-09-07 20:45 | Progress Note ---
DATE: 09/07/2019 CARDIOLOGY PROGRESS NOTE SUBJECTIVE: Episode of supraventricular tachycardia today resolved with IV fluids. Blood pressure parameters improved, but still low range. Still with respiratory distress and requiring BiPAP. OBJECTIVE: VITAL SIGNS: Blood pressure 93/41, pulse 96, respirations 20, and afebrile. LUNGS: Bilateral breath sounds. Rales. LUNGS: Regular rhythm and rate. Normal S1, S2. ABDOMEN: Soft. EXTREMITIES: Trace edema. LABORATORY DATA: White count 26, hemoglobin 8.7. Potassium 3.4. Magnesium 1.9. Albumin 1.5. Natriuretic peptide 480. ABG 7.48, 45, 62. Chest x-ray today reveals worsening CHF. IMPRESSION: 1. Substance abuse. 2. MRSA pneumonia. 3. Clinically not in overt heart failure. 4. Paroxysmal atrial tachyarrhythmia. PLAN: 1. Antimicrobials. 2. Avoid over-diuresis. 3. Respiratory hygiene and BiPAP support. 4. Remains with serious condition and guarded prognosis. 5. No role for antiarrhythmic therapy at this time. Ar Gomez M.D. DR: JACQUIE JOB#: [id number] CC:
[2019-09-08] VITALS: BP 103/62
[2019-09-08 04:00] VITALS: BP 102/63
[2019-09-08 05:13] LABS: HEMATOCRIT 25.6 % (42.0-52.0); HEMOGLOBIN 8.7 G/DL (14.2-18.0); MEAN CORPUSCULAR VOLUME 107 FL (80-99); PLATELET COUNT 124 K/UL (150-450); RED BLOOD COUNT 2.39 M/UL (4.70-6.10); RED CELL DISTRIBUTION WIDTH 14.5 % (11.6-14.8)
[2019-09-08 05:27] LABS: WHITE BLOOD COUNT 23.3 K/UL (4.8-10.8)
--- NOTE | 2019-09-08 05:27 | NUR ---
NURSE NOTES: Received call from Valeria from lab regarding patient's WBC of 23.3. will inform .
[2019-09-08 05:53] LABS: ALANINE AMINOTRANSFERASE 50 U/L (12-78); ALBUMIN 1.5 G/DL (3.4-5.0); ALBUMIN/GLOBULIN RATIO 0.3 (1.0-2.7); ALKALINE PHOSPHATASE 127 U/L (46-116); ANION GAP 3 mmol/L (5-15); ASPARTATE AMINO TRANSFERASE 60 U/L (15-37); BILIRUBIN,TOTAL 1.4 MG/DL (0.2-1.0); BLOOD UREA NITROGEN 22 mg/dL (7-18); CALCIUM 8.5 MG/DL (8.5-10.1); CARBON DIOXIDE 35 MMOL/L (21-32); CHLORIDE 98 MMOL/L (98-107); POTASSIUM 3.6 MMOL/L (3.5-5.1); SODIUM 136 MMOL/L (136-145)
[2019-09-08 05:54] LABS: BILIRUBIN,DIRECT 0.9 MG/DL (0.0-0.3)
--- NOTE | 2019-09-08 07:37 | NUR ---
HAND-OFF: Report given to REINALDO Rose. patient is in stable condition.
--- NOTE | 2019-09-08 07:40 | NUR ---
NURSE NOTES: Received bedside report from Jenny NAJERA. Pt. in bed, sleeping but arousable. No sign of distress. On Bipap with setting of 20/10 and Fi O2 of 80%. No grimacing noted. IV site at left AC and right AC #[id number]. in placed SL. Bed in low position, locked. Call light within reach. Will cont. to monitor.
[2019-09-08 08:00] VITALS: BP 91/51
[2019-09-08] MEDS: Heparin 5000 units/ml inj SUBQ SCH ×2 (09:00→21:00)
--- NOTE | 2019-09-08 09:34 | General Progress Note ---
Assessment/Plan Problem List: (1) AMS (altered mental status) ICD Codes: R41.82 - Altered mental status, unspecified SNOMED: 595612480 Status: stable Assessment/Plan: iv abx bipap follow up cxr diuresis critical and guarded Subjective ROS Limited/Unobtainable: No Constitutional: Reports: malaise, weakness HEENT: Reports: no symptoms Cardiovascular: Reports: no symptoms Respiratory: Reports: cough, shortness of breath Gastrointestinal/Abdominal: Reports: no symptoms Genitourinary: Reports: no symptoms Neurologic/Psychiatric: Reports: no symptoms Endocrine: Reports: no symptoms Hematologic/Lymphatic: Reports: no symptoms Allergies: Coded Allergies: PENICILLINS (Verified Allergy, Intermediate, Rash, 09/01/19) Patient stated at this time All Systems: reviewed and negative except above Subjective on bipap. appears more comfortable. labs noted. desaturates of bipap. Objective Last 24 Hour Vital Signs Date Time Temp Pulse Resp B/P (MAP) Pulse Ox O2 Delivery O2 Flow Rate FiO2 09/08/19 08:46 103 17 89 Facial 75 09/08/19 08:00 97.9 104 20 91/51 (64) 91 09/08/19 07:44 104 09/08/19 06:49 97 22 91 Facial 70 09/08/19 05:03 111 31 90 Facial 70 09/08/19 04:00 103 09/08/19 04:00 70 09/08/19 04:00 Bi-pap 09/08/19 04:00 97.7 104 26 102/63 (76) 92 09/08/19 03:12 105 35 90 Facial 70 09/08/19 01:04 99 32 91 Facial 70 09/08/19 00:00 104 09/08/19 00:00 97.7 98 22 103/62 (76) 97 09/08/19 00:00 Bi-pap 09/07/19 23:45 102 23 98 Facial 80 09/07/19 21:52 104 23 100 Facial 60 09/07/19 20:00 92 09/07/19 20:00 97.2 105 26 100/59 (73) 97 09/07/19 20:00 Bi-pap 09/07/19 20:00 80 09/07/19 19:20 95 25 100 Facial 70 09/07/19 17:42 88 17 100 Facial 80 09/07/19 16:00 Bi-pap 09/07/19 16:00 100 09/07/19 16:00 97.2 94 21 92/56 (68) 97 94 94 09/07/19 15:30 103 28 97 Facial 100 09/07/19 15:26 110 09/07/19 13:00 105 27 100 Facial 100 09/07/19 12:00 100 09/07/19 12:00 98.1 96 20 93/41 (58) 99 09/07/19 12:00 Bi-pap 09/07/19 11:43 105 09/07/19 11:29 99 25 100 Facial 100 Intake and Output 09/07/19 09/08/19 19:00 07:00 Intake Total 730 ml 480 ml Output Total 1800 ml 600 ml Balance -1070 ml -120 ml Intake Oral 480 ml 480 ml IV Total 250 ml Output Urine Total 1800 ml 600 ml # Voids 5 1 Laboratory Tests 09/07/19 15:34: Arterial Blood pH 7.487H, Arterial Blood Partial Pressure CO2 45.5H, Arterial Blood Partial Pressure O2 61.9L, Arterial Blood HCO3 33.7H, Arterial Blood Oxygen Saturation 89.9*L, Arterial Blood Base Excess 9.3*H, Giovanny Test Positive 09/07/19 15:40: Urine Color Yellow, Urine Appearance Clear, Urine pH 6.5, Urine Specific [place] 1.010, Urine Protein Negative, Urine Glucose (UA) Negative, Urine Ketones Negative, Urine Blood 3+H, Urine Nitrite Negative, Urine Bilirubin Negative, Urine Urobilinogen 1H, Urine Leukocyte Esterase Negative, Urine RBC 2- 4H, Urine WBC 0-2, Urine Squamous Epithelial Cells None, Urine Bacteria Few 09/08/19 03:15: White Blood Count 23.3*H, Red Blood Count 2.39L, Hemoglobin 8.7L, Hematocrit 25.6L, Mean Corpuscular Volume 107H, Mean Corpuscular Hemoglobin 36.3H, Mean Corpuscular Hemoglobin Concent 33.9, Red Cell Distribution Width 14.5, Platelet Count 124L, Mean Platelet Volume 7.8, Neutrophils (%) (Auto) , Lymphocytes (%) ( Auto) , Monocytes (%) (Auto) , Eosinophils (%) (Auto) , Basophils (%) (Auto) , Differential Total Cells Counted 100, Neutrophils % (Manual) 74, Lymphocytes % ( Manual) 11L, Monocytes % (Manual) 13H, Eosinophils % (Manual) 2, Basophils % ( Manual) 0, Band Neutrophils 0, Platelet Estimate DecreasedL, Platelet Morphology Normal, Hypochromasia 1+, Macrocytosis 1+, Sodium Level 136, Potassium Level 3.6, Chloride Level 98, Carbon Dioxide Level 35H, Anion Gap 3L, Blood Urea Nitrogen 22H, Creatinine 1.0, Estimat Glomerular Filtration Rate > 60 , Glucose Level 78, Calcium Level 8.5, Total Bilirubin 1.4H, Direct Bilirubin 0.9H, Aspartate Amino Transf (AST/SGOT) 60H, Alanine Aminotransferase (ALT/SGPT ) 50, Alkaline Phosphatase 127H, Total Protein 6.1L, Albumin 1.5L, Globulin 4.6 , Albumin/Globulin Ratio 0.3L Height (Feet): 5 Height (Inches): 8.00 Weight (Pounds): 147 Objective General Appearance: WD/WN, lethargic. on bipap. Neck: supple Cardiovascular: regular rhythm Respiratory/Chest: lungs td rhonchi Abdomen: normal bowel sounds, non tender. small reducible periumbilical hernia Edema: no edema noted Arm (L), no edema noted Arm (R), no edema noted Leg (L), no edema noted Leg (R), no edema noted Pedal (L), no edema noted Pedal (R), no edema noted Generalized Henry Leavitt MD Sep 08, 2019 09:34
[2019-09-08] MEDS: Solu-MEDROL 40mg Inj IVP SCH (09:42)
[2019-09-08] MEDS: Spironolactone 25mg tab ORAL SCH (09:42)
[2019-09-08] MEDS: Thiamine 100mg tab ORAL SCH (09:42)
--- NOTE | 2019-09-08 10:40 | Infectious Diseases Prog Note ---
Assessment/Plan Assessment/Plan antibiotics : none A 1. MRSA pneumonia 2. respiratory failure 3. enterobacter UTI s/p rx 4. cirrhosis 5. ascites s/p paracentesis no SBP 6. thrombocytopenia 7. leucocytosis likely secondary to steroids P 1. start doxycycline 2. will follow up cultures Subjective Constitutional: Denies: fever, chills Respiratory: Reports: dry cough - mild; Denies: shortness of breath, productive cough Gastrointestinal/Abdominal: Denies: nausea, vomiting, diarrhea Musculoskeletal: Denies: pain Allergies: Coded Allergies: PENICILLINS (Verified Allergy, Intermediate, Rash, 09/01/19) Patient stated at this time Objective Vital Signs Last 24 Hour Vital Signs Date Time Temp Pulse Resp B/P (MAP) Pulse Ox O2 Delivery O2 Flow Rate FiO2 09/08/19 08:46 103 17 89 Facial 75 09/08/19 08:00 70 09/08/19 08:00 97.9 104 20 91/51 (64) 91 09/08/19 07:44 104 09/08/19 06:49 97 22 91 Facial 70 09/08/19 05:03 111 31 90 Facial 70 09/08/19 04:00 103 09/08/19 04:00 70 09/08/19 04:00 Bi-pap 09/08/19 04:00 97.7 104 26 102/63 (76) 92 09/08/19 03:12 105 35 90 Facial 70 09/08/19 01:04 99 32 91 Facial 70 09/08/19 00:00 104 09/08/19 00:00 97.7 98 22 103/62 (76) 97 09/08/19 00:00 Bi-pap 09/07/19 23:45 102 23 98 Facial 80 09/07/19 21:52 104 23 100 Facial 60 09/07/19 20:00 92 09/07/19 20:00 97.2 105 26 100/59 (73) 97 09/07/19 20:00 Bi-pap 09/07/19 20:00 80 09/07/19 19:20 95 25 100 Facial 70 09/07/19 17:42 88 17 100 Facial 80 09/07/19 16:00 Bi-pap 09/07/19 16:00 100 09/07/19 16:00 97.2 94 21 92/56 (68) 97 94 94 09/07/19 15:30 103 28 97 Facial 100 09/07/19 15:26 110 09/07/19 13:00 105 27 100 Facial 100 09/07/19 12:00 100 09/07/19 12:00 98.1 96 20 93/41 (58) 99 09/07/19 12:00 Bi-pap 09/07/19 11:43 105 09/07/19 11:29 99 25 100 Facial 100 Height (Feet): 5 Height (Inches): 8.00 Weight (Pounds): 147 Respiratory/Chest: lungs clear Cardiovascular: normal rate, regular rhythm, no gallop/murmur Abdomen: soft, non tender Extremities: no edema Microbiology Date/Time Source Procedure Growth Status 09/07/19 06:00 Sputum Gram Stain - Final Resulted 09/07/19 06:00 Sputum Culture - Preliminary Staphylococcus Aureus Usual Respiratory Kiara Resulted 09/07/19 15:40 Urine,Clean Catch Urine Culture - Preliminary NO GROWTH Resulted Laboratory Tests Test 09/07/19 15:34 09/07/19 15:40 09/08/19 03:15 Arterial Blood pH 7.487 (7.350-7.450) Arterial Blood Partial Pressure CO2 45.5 mmHg (35.0-45.0) H Arterial Blood Partial Pressure O2 61.9 mmHg (75.0-100.0) L Arterial Blood HCO3 33.7 mmol/L (22.0-26.0) H Arterial Blood Oxygen Saturation 89.9 % (95-100) *L Arterial Blood Base Excess 9.3 (-2-2) *H Giovanny Test Positive Urine Color Yellow Urine Appearance Clear Urine pH 6.5 (4.5-8.0) Urine Specific [place] 1.010 (1.005-1.035) Urine Protein Negative (NEGATIVE) Urine Glucose (UA) Negative (NEGATIVE) Urine Ketones Negative (NEGATIVE) Urine Blood 3+ (NEGATIVE) H Urine Nitrite Negative (NEGATIVE) Urine Bilirubin Negative (NEGATIVE) Urine Urobilinogen 1 MG/DL (0.0-1.0) H Urine Leukocyte Esterase Negative (NEGATIVE) Urine RBC 2-4 /HPF (0 - 0) H Urine WBC 0-2 /HPF (0 - 0) Urine Squamous Epithelial Cells None /LPF (NONE/OCC) Urine Bacteria Few /HPF (NONE) White Blood Count 23.3 K/UL (4.8-10.8) *H Red Blood Count 2.39 M/UL (4.70-6.10) L Hemoglobin 8.7 G/DL (14.2-18.0) L Hematocrit 25.6 % (42.0-52.0) L Mean Corpuscular Volume 107 FL (80-99) H Mean Corpuscular Hemoglobin 36.3 PG (27.0-31.0) H Mean Corpuscular Hemoglobin Concent 33.9 G/DL (32.0-36.0) Red Cell Distribution Width 14.5 % (11.6-14.8) Platelet Count 124 K/UL (150-450) L Mean Platelet Volume 7.8 FL (6.5-10.1) Neutrophils (%) (Auto) % (45.0-75.0) Lymphocytes (%) (Auto) % (20.0-45.0) Monocytes (%) (Auto) % (1.0-10.0) Eosinophils (%) (Auto) % (0.0-3.0) Basophils (%) (Auto) % (0.0-2.0) Differential Total Cells Counted 100 Neutrophils % (Manual) 74 % (45-75) Lymphocytes % (Manual) 11 % (20-45) L Monocytes % (Manual) 13 % (1-10) H Eosinophils % (Manual) 2 % (0-3) Basophils % (Manual) 0 % (0-2) Band Neutrophils 0 % (0-8) Platelet Estimate Decreased L Platelet Morphology Normal Hypochromasia 1+ Macrocytosis 1+ Sodium Level 136 MMOL/L (136-145) Potassium Level 3.6 MMOL/L (3.5-5.1) Chloride Level 98 MMOL/L (98-107) Carbon Dioxide Level 35 MMOL/L (21-32) H Anion Gap 3 mmol/L (5-15) L Blood Urea Nitrogen 22 mg/dL (7-18) H Creatinine 1.0 MG/DL (0.55-1.30) Estimat Glomerular Filtration Rate > 60 mL/min (>60) Glucose Level 78 MG/DL (74-106) Calcium Level 8.5 MG/DL (8.5-10.1) Total Bilirubin 1.4 MG/DL (0.2-1.0) H Direct Bilirubin 0.9 MG/DL (0.0-0.3) H Aspartate Amino Transf (AST/SGOT) 60 U/L (15-37) H Alanine Aminotransferase (ALT/SGPT) 50 U/L (12-78) Alkaline Phosphatase 127 U/L (46-116) H Total Protein 6.1 G/DL (6.4-8.2) L Albumin 1.5 G/DL (3.4-5.0) L Globulin 4.6 g/dL Albumin/Globulin Ratio 0.3 (1.0-2.7) L Current Medications Medications (Trade) Dose Ordered Sig/Akash Route PRN Reason Start Time Stop Time Status Last Admin Dose Admin Acetaminophen (Tylenol) 650 mg Q4H PRN ORAL Mild Pain/Temp > 100.5 08/28/19 07:00 09/22/19 10:59 09/07/19 04:09 Diphenhydramine HCl (Benadryl) 25 mg Q6H PRN ORAL Itching 09/06/19 14:15 10/06/19 14:14 09/07/19 22:36 Furosemide (Lasix) 40 mg DAILY IV 09/06/19 09:00 10/06/19 08:59 09/08/19 09:42 Guaifenesin/ Dextromethorphan (Robitussin DM Syrup) 5 ml Q4H PRN ORAL For Cough 08/28/19 06:15 09/26/19 06:14 Heparin Sodium (Porcine) (Heparin 5000 units/ml) 5,000 units EVERY 12 HOURS SUBQ 08/29/19 09:30 09/28/19 09:29 08/31/19 08:55 Iohexol (Omnipaque) 100 mg NOW PRN INJ Radiology Procedure 09/06/19 14:30 09/08/19 14:25 Methylprednisolone Sodium Succinate (Solu-MEDROL) 40 mg DAILY IVP 09/06/19 09:00 10/06/19 08:59 09/08/19 09:42 Multivitamins (Multivitamins) 1 tab DAILY ORAL 08/28/19 09:00 09/22/19 08:59 09/08/19 09:42 Nicotine (Nicoderm) 1 patch Q24H TDERMAL 08/28/19 16:00 09/23/19 15:59 12/24/19 16:22 Ondansetron HCl (Zofran) 4 mg Q6H PRN IVP Nausea & Vomiting 08/28/19 09:30 09/22/19 03:29 Pantoprazole (Protonix) 40 mg DAILY ORAL 08/28/19 09:00 09/22/19 08:59 09/08/19 09:42 Spironolactone (Aldactone) 25 mg DAILY ORAL 08/28/19 09:00 09/24/19 08:59 09/08/19 09:42 Thiamine HCl (Vitamin B1) 100 mg DAILY ORAL 08/28/19 09:00 09/22/19 08:59 09/08/19 09:42 Morena Erazo MD Sep 08, 2019 10:39
[2019-09-08] MEDS: Doxycycline Monohydrate 100mg ORAL SCH ×2 (11:45→21:09)
[2019-09-08 12:00] VITALS: BP 106/58
[2019-09-08 16:00] VITALS: BP 101/59
--- NOTE | 2019-09-08 16:43 | Pulmonology Progress Note ---
Assessment/Plan Assessment/Plan Pulmonary Progress Note HPI Patient is a 49-year-old man admitted with altered mental status, MRSA Pneumonia. History of alcohol use. History is limited due to patient's mental status changes. Noted to have Cardiac Failure, Hypoxic respiratory failure, on PRN BiPAP Allergies: Penicillin PMH: Hernia, Cirrhosis Physical Exam Vital Signs Noted General Appearance: no apparent distress, alert, non-toxic, PRN Bipap alternating with FM O2 Head: normocephalic, atraumatic Eyes: bilateral eye normal inspection ENT: moist mucus membranes Neck: supple Respiratory: CTAB Cardiovascular: regular rate, rhythm, HS1, HS2 normal Gastrointestinal: soft, mild distention, ascites, hernia Rectal: deferred Musculoskeletal: moves extremities spontaneously, no lower extremity edema Neurologic: Awake no gross deficits noted, 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 fib Rate: other - 90s Rhythm: other - A. fib ST Segments: other - QT segment 408, QTc 499 CXR: Pulmonary Congestion CT Head no Contrast No acute intracranial process Subjective ROS Limited/Unobtainable: No Allergies: Coded Allergies: PENICILLINS (Verified Allergy, Intermediate, Rash, 09/01/19) Patient stated at this time Objective Last 24 Hour Vital Signs Date Time Temp Pulse Resp B/P (MAP) Pulse Ox O2 Delivery O2 Flow Rate FiO2 09/08/19 15:05 102 29 90 Facial 75 09/08/19 13:03 91 30 92 Facial 75 09/08/19 12:00 98.0 98 21 106/58 (74) 91 09/08/19 12:00 Bi-pap 09/08/19 12:00 70 09/08/19 10:56 103 22 91 Facial 75 09/08/19 08:46 103 17 89 Facial 75 09/08/19 08:00 70 09/08/19 08:00 97.9 104 20 91/51 (64) 91 09/08/19 08:00 Bi-pap 09/08/19 07:44 104 09/08/19 06:49 97 22 91 Facial 70 09/08/19 05:03 111 31 90 Facial 70 09/08/19 04:00 103 09/08/19 04:00 70 09/08/19 04:00 Bi-pap 09/08/19 04:00 97.7 104 26 102/63 (76) 92 09/08/19 03:12 105 35 90 Facial 70 09/08/19 01:04 99 32 91 Facial 70 09/08/19 00:00 104 09/08/19 00:00 97.7 98 22 103/62 (76) 97 09/08/19 00:00 Bi-pap 09/07/19 23:45 102 23 98 Facial 80 09/07/19 21:52 104 23 100 Facial 60 09/07/19 20:00 92 09/07/19 20:00 97.2 105 26 100/59 (73) 97 09/07/19 20:00 Bi-pap 09/07/19 20:00 80 09/07/19 19:20 95 25 100 Facial 70 09/07/19 17:42 88 17 100 Facial 80 Intake and Output 09/07/19 09/08/19 19:00 07:00 Intake Total 730 ml 480 ml Output Total 1800 ml 600 ml Balance -1070 ml -120 ml Intake Oral 480 ml 480 ml IV Total 250 ml Output Urine Total 1800 ml 600 ml # Voids 5 1 Microbiology Date/Time Source Procedure Growth Status 09/07/19 06:00 Sputum Gram Stain - Final Resulted 09/07/19 06:00 Sputum Culture - Preliminary Staphylococcus Aureus Usual Respiratory Kiara Resulted 09/07/19 15:40 Urine,Clean Catch Urine Culture - Preliminary NO GROWTH Resulted Laboratory Tests 09/08/19 03:15: White Blood Count 23.3*H, Red Blood Count 2.39L, Hemoglobin 8.7L, Hematocrit 25.6L, Mean Corpuscular Volume 107H, Mean Corpuscular Hemoglobin 36.3H, Mean Corpuscular Hemoglobin Concent 33.9, Red Cell Distribution Width 14.5, Platelet Count 124L, Mean Platelet Volume 7.8, Neutrophils (%) (Auto) , Lymphocytes (%) ( Auto) , Monocytes (%) (Auto) , Eosinophils (%) (Auto) , Basophils (%) (Auto) , Differential Total Cells Counted 100, Neutrophils % (Manual) 74, Lymphocytes % ( Manual) 11L, Monocytes % (Manual) 13H, Eosinophils % (Manual) 2, Basophils % ( Manual) 0, Band Neutrophils 0, Platelet Estimate DecreasedL, Platelet Morphology Normal, Hypochromasia 1+, Macrocytosis 1+, Sodium Level 136, Potassium Level 3.6, Chloride Level 98, Carbon Dioxide Level 35H, Anion Gap 3L, Blood Urea Nitrogen 22H, Creatinine 1.0, Estimat Glomerular Filtration Rate > 60 , Glucose Level 78, Calcium Level 8.5, Total Bilirubin 1.4H, Direct Bilirubin 0.9H, Aspartate Amino Transf (AST/SGOT) 60H, Alanine Aminotransferase (ALT/SGPT ) 50, Alkaline Phosphatase 127H, Total Protein 6.1L, Albumin 1.5L, Globulin 4.6 , Albumin/Globulin Ratio 0.3L Current Medications Medications (Trade) Dose Ordered Sig/Akash Route PRN Reason Start Time Stop Time Status Last Admin Dose Admin Acetaminophen (Tylenol) 650 mg Q4H PRN ORAL Mild Pain/Temp > 100.5 08/28/19 07:00 09/22/19 10:59 09/07/19 04:09 Diphenhydramine HCl (Benadryl) 25 mg Q6H PRN ORAL Itching 09/06/19 14:15 10/06/19 14:14 09/08/19 10:48 Doxycycline Monohydrate (Doxycycline Monohydrate) 100 mg EVERY 12 HOURS ORAL 09/08/19 10:45 09/15/19 10:44 09/08/19 11:45 Furosemide (Lasix) 40 mg DAILY IV 09/06/19 09:00 10/06/19 08:59 09/08/19 09:42 Guaifenesin/ Dextromethorphan (Robitussin DM Syrup) 5 ml Q4H PRN ORAL For Cough 08/28/19 06:15 09/26/19 06:14 Heparin Sodium (Porcine) (Heparin 5000 units/ml) 5,000 units EVERY 12 HOURS SUBQ 08/29/19 09:30 09/28/19 09:29 08/31/19 08:55 Methylprednisolone Sodium Succinate (Solu-MEDROL) 40 mg DAILY IVP 09/06/19 09:00 10/06/19 08:59 09/08/19 09:42 Multivitamins (Multivitamins) 1 tab DAILY ORAL 08/28/19 09:00 09/22/19 08:59 09/08/19 09:42 Nicotine (Nicoderm) 1 patch Q24H TDERMAL 08/28/19 16:00 09/23/19 15:59 09/07/19 16:22 Ondansetron HCl (Zofran) 4 mg Q6H PRN IVP Nausea & Vomiting 08/28/19 09:30 09/22/19 03:29 Pantoprazole (Protonix) 40 mg DAILY ORAL 08/28/19 09:00 09/22/19 08:59 09/08/19 09:42 Spironolactone (Aldactone) 25 mg DAILY ORAL 08/28/19 09:00 09/24/19 08:59 09/08/19 09:42 Thiamine HCl (Vitamin B1) 100 mg DAILY ORAL 08/28/19 09:00 09/22/19 08:59 09/08/19 09:42 Ar Cook MD Sep 08, 2019 16:43
--- NOTE | 2019-09-08 19:10 | NUR ---
NURSE NOTES: Received patient from REINALDO Rose. patient is observed sleeping in bed, arousable to voice, no s/sx of pain noted at this time. patient is on BiPAP with current settings of 20/10, FiO2: 75%. tolerating well, saturating at 92%, no s/sx of respiratory distress noted at this time. hall monitor shows SR with current heart rate of 98. no acute cardiac distress noted at this time. LAC 22 g and RAC 22g IV sites noted, patent and intact, asymptomatic. bed in lowest position and locked, siderails up X3, call light within reach. will continue to monitor.
--- NOTE | 2019-09-08 19:35 | NUR ---
HAND-OFF: Report given to Jenny NAJERA. Pt. remain stable.
[2019-09-08 20:00] VITALS: BP 100/61
[2019-09-09] VITALS: BP 110/69
[2019-09-09 04:00] VITALS: BP 100/66
--- NOTE | 2019-09-09 07:36 | NUR ---
HAND-OFF: Report given to REINALDO Goldstein. patient is in stable condition.
[2019-09-09 08:00] VITALS: BP 103/64
--- NOTE | 2019-09-09 08:07 | General Progress Note ---
Assessment/Plan Problem List: (1) AMS (altered mental status) ICD Codes: R41.82 - Altered mental status, unspecified SNOMED: 628902164 Status: stable Assessment/Plan: iv abx bipap follow up cxr diuresis critical and guarded ?ltach Subjective Constitutional: Reports: no symptoms HEENT: Reports: no symptoms Cardiovascular: Reports: no symptoms Respiratory: Reports: cough, shortness of breath Gastrointestinal/Abdominal: Reports: no symptoms Genitourinary: Reports: no symptoms Neurologic/Psychiatric: Reports: no symptoms Endocrine: Reports: no symptoms Hematologic/Lymphatic: Reports: no symptoms Allergies: Coded Allergies: PENICILLINS (Verified Allergy, Intermediate, Rash, 09/01/19) Patient stated at this time All Systems: reviewed and negative except above Subjective on bipap. appears more comfortable. labs noted. desaturates off bipap. on venti mask to eat breakfast Objective Last 24 Hour Vital Signs Date Time Temp Pulse Resp B/P (MAP) Pulse Ox O2 Delivery O2 Flow Rate FiO2 09/09/19 05:20 103 26 95 Facial 75 09/09/19 04:00 Bi-pap 09/09/19 04:00 75 09/09/19 04:00 89 09/09/19 04:00 97.9 89 28 100/66 (77) 95 09/09/19 03:24 101 28 95 Facial 75 09/09/19 01:15 98 24 96 Facial 75 09/09/19 00:00 Bi-pap 09/09/19 00:00 96 09/09/19 00:00 97.7 96 18 110/69 (83) 95 09/08/19 22:35 104 26 96 Facial 75 09/08/19 21:14 101 30 95 Facial 75 09/08/19 20:00 Bi-pap 09/08/19 20:00 75 09/08/19 20:00 102 09/08/19 20:00 97.9 102 22 100/61 (74) 95 09/08/19 19:17 103 31 95 Facial 75 09/08/19 16:55 104 30 94 Facial 75 09/08/19 16:00 70 09/08/19 16:00 Bi-pap 09/08/19 16:00 97.9 98 23 101/59 (73) 93 09/08/19 15:23 101 09/08/19 15:05 102 29 90 Facial 75 09/08/19 13:03 91 30 92 Facial 75 09/08/19 12:00 98.0 98 21 106/58 (74) 91 09/08/19 12:00 Bi-pap 09/08/19 12:00 70 09/08/19 11:08 109 09/08/19 10:56 103 22 91 Facial 75 09/08/19 08:46 103 17 89 Facial 75 Intake and Output 09/08/19 09/09/19 19:00 07:00 Intake Total 420 ml 240 ml Output Total 1000 ml 500 ml Balance -580 ml -260 ml Intake Oral 420 ml 240 ml Output Urine Total 1000 ml 500 ml # Bowel Movements 2 Height (Feet): 5 Height (Inches): 8.00 Weight (Pounds): 150 Objective General Appearance: WD/WN, lethargic. on bipap. Neck: supple Cardiovascular: regular rhythm Respiratory/Chest: lungs td rhonchi Abdomen: normal bowel sounds, non tender. small reducible periumbilical hernia Edema: no edema noted Arm (L), no edema noted Arm (R), no edema noted Leg (L), no edema noted Leg (R), no edema noted Pedal (L), no edema noted Pedal (R), no edema noted Generalized Henry Leavitt MD Sep 09, 2019 08:07
[2019-09-09] MEDS: Solu-MEDROL 40mg Inj IVP SCH (08:21)
[2019-09-09] MEDS: Doxycycline Monohydrate 100mg ORAL SCH ×2 (08:21→21:02)
[2019-09-09] MEDS: Thiamine 100mg tab ORAL SCH (08:22)
[2019-09-09] MEDS: Heparin 5000 units/ml inj SUBQ SCH ×2 (08:23→21:00)
[2019-09-09] MEDS: Spironolactone 25mg tab ORAL SCH (08:23)
[2019-09-09 08:58] LABS: HEMATOCRIT 29.5 % (42.0-52.0); MEAN CORPUSCULAR VOLUME 107 FL (80-99); PLATELET COUNT 169 K/UL (150-450); RED BLOOD COUNT 2.77 M/UL (4.70-6.10); RED CELL DISTRIBUTION WIDTH 14.5 % (11.6-14.8); WHITE BLOOD COUNT 18.6 K/UL (4.8-10.8)
[2019-09-09 09:24] LABS: ALANINE AMINOTRANSFERASE 52 U/L (12-78); ALBUMIN 1.7 G/DL (3.4-5.0); ALBUMIN/GLOBULIN RATIO 0.3 (1.0-2.7); ALKALINE PHOSPHATASE 127 U/L (46-116); ANION GAP 3 mmol/L (5-15); ASPARTATE AMINO TRANSFERASE 64 U/L (15-37); BILIRUBIN,TOTAL 2.1 MG/DL (0.2-1.0); BLOOD UREA NITROGEN 23 mg/dL (7-18); CALCIUM 8.7 MG/DL (8.5-10.1); CARBON DIOXIDE 34 MMOL/L (21-32); CHLORIDE 97 MMOL/L (98-107); CREATININE 1.1 MG/DL (0.55-1.30); POTASSIUM 3.2 MMOL/L (3.5-5.1); SODIUM 134 MMOL/L (136-145)
--- NOTE | 2019-09-09 09:34 | NUR ---
RADIOLOGY DEPT., CHEST X-RAY DONE.-P.DYE
[2019-09-09 09:40] LABS: BILIRUBIN,DIRECT 1.2 MG/DL (0.0-0.3)
--- NOTE | 2019-09-09 10:37 | NUR ---
CASE MANAGEMENT:REVIEW 09/09/19 SI:AMS D/T PCP. ENTEROBACTER UTI MRSA PNA. RESPIRATORY FAILURE 97.5 103 26 103/64 95% ON BIPAP 75% FIO2 WBC+18.6 H/H-10.0/29.5 K-3.2 TBILI+2.1 DBILI+1.2 IS: DOXYCYCLINE PO Q12 IV SOLUMEDROL QD LEVAQUIN PO QD IV LASIX QD HEPARIN SQ Q12 ALDACTONE PO QD : STEP DOWN UNIT
[2019-09-09 12:00] VITALS: BP 98/31
--- NOTE | 2019-09-09 12:47 | Infectious Diseases Prog Note ---
Assessment/Plan Assessment/Plan antibiotics : doxycycline A 1. MRSA pneumonia 2. respiratory failure 3. enterobacter UTI s/p rx 4. cirrhosis 5. ascites s/p paracentesis no SBP 6. thrombocytopenia 7. leucocytosis likely secondary to steroids P 1. continue doxycycline 2. will follow up cultures Subjective ROS Limited/Unobtainable: Yes Allergies: Coded Allergies: PENICILLINS (Verified Allergy, Intermediate, Rash, 09/01/19) Patient stated at this time Objective Vital Signs Last 24 Hour Vital Signs Date Time Temp Pulse Resp B/P (MAP) Pulse Ox O2 Delivery O2 Flow Rate FiO2 09/09/19 08:00 97.5 88 22 103/64 (77) 95 09/09/19 08:00 Bi-pap 09/09/19 08:00 104 09/09/19 08:00 75 09/09/19 05:20 103 26 95 Facial 75 09/09/19 04:00 Bi-pap 09/09/19 04:00 75 09/09/19 04:00 89 09/09/19 04:00 97.9 89 28 100/66 (77) 95 09/09/19 03:24 101 28 95 Facial 75 09/09/19 01:15 98 24 96 Facial 75 09/09/19 00:00 Bi-pap 09/09/19 00:00 96 09/09/19 00:00 97.7 96 18 110/69 (83) 95 09/08/19 22:35 104 26 96 Facial 75 09/08/19 21:14 101 30 95 Facial 75 09/08/19 20:00 Bi-pap 09/08/19 20:00 75 09/08/19 20:00 102 09/08/19 20:00 97.9 102 22 100/61 (74) 95 09/08/19 19:17 103 31 95 Facial 75 09/08/19 16:55 104 30 94 Facial 75 09/08/19 16:00 70 09/08/19 16:00 Bi-pap 09/08/19 16:00 97.9 98 23 101/59 (73) 93 09/08/19 15:23 101 09/08/19 15:05 102 29 90 Facial 75 09/08/19 13:03 91 30 92 Facial 75 Height (Feet): 5 Height (Inches): 8.00 Weight (Pounds): 150 HEENT: other - on bipap Respiratory/Chest: lungs clear Cardiovascular: normal rate, regular rhythm, no gallop/murmur Abdomen: soft, non tender Extremities: no edema Microbiology Date/Time Source Procedure Growth Status 09/07/19 10:00 Blood Blood Culture - Preliminary NO GROWTH AFTER 24 HOURS Resulted 09/07/19 06:00 Sputum Gram Stain - Final Complete 09/07/19 06:00 Sputum Culture - Final Staphylococcus Aureus - Mrsa Usual Respiratory Kiara Complete 09/07/19 15:40 Urine,Clean Catch Urine Culture - Final Mixed Gram Positive Organism Complete Laboratory Tests Test 09/09/19 08:46 White Blood Count 18.6 K/UL (4.8-10.8) H Red Blood Count 2.77 M/UL (4.70-6.10) L Hemoglobin 10.0 G/DL (14.2-18.0) L Hematocrit 29.5 % (42.0-52.0) L Mean Corpuscular Volume 107 FL (80-99) H Mean Corpuscular Hemoglobin 36.2 PG (27.0-31.0) H Mean Corpuscular Hemoglobin Concent 33.9 G/DL (32.0-36.0) Red Cell Distribution Width 14.5 % (11.6-14.8) Platelet Count 169 K/UL (150-450) Mean Platelet Volume 7.4 FL (6.5-10.1) Neutrophils (%) (Auto) % (45.0-75.0) Lymphocytes (%) (Auto) % (20.0-45.0) Monocytes (%) (Auto) % (1.0-10.0) Eosinophils (%) (Auto) % (0.0-3.0) Basophils (%) (Auto) % (0.0-2.0) Neutrophils % (Manual) Pending Lymphocytes % (Manual) Pending Platelet Estimate Pending Platelet Morphology Pending Sodium Level 134 MMOL/L (136-145) L Potassium Level 3.2 MMOL/L (3.5-5.1) L Chloride Level 97 MMOL/L (98-107) L Carbon Dioxide Level 34 MMOL/L (21-32) H Anion Gap 3 mmol/L (5-15) L Blood Urea Nitrogen 23 mg/dL (7-18) H Creatinine 1.1 MG/DL (0.55-1.30) Estimat Glomerular Filtration Rate > 60 mL/min (>60) Glucose Level 103 MG/DL (74-106) Calcium Level 8.7 MG/DL (8.5-10.1) Total Bilirubin 2.1 MG/DL (0.2-1.0) H Direct Bilirubin 1.2 MG/DL (0.0-0.3) H Aspartate Amino Transf (AST/SGOT) 64 U/L (15-37) H Alanine Aminotransferase (ALT/SGPT) 52 U/L (12-78) Alkaline Phosphatase 127 U/L (46-116) H Total Protein 6.8 G/DL (6.4-8.2) Albumin 1.7 G/DL (3.4-5.0) L Globulin 5.1 g/dL Albumin/Globulin Ratio 0.3 (1.0-2.7) L Current Medications Medications (Trade) Dose Ordered Sig/Akash Route PRN Reason Start Time Stop Time Status Last Admin Dose Admin Acetaminophen (Tylenol) 650 mg Q4H PRN ORAL Mild Pain/Temp > 100.5 08/28/19 07:00 09/22/19 10:59 09/07/19 04:09 Diphenhydramine HCl (Benadryl) 25 mg Q6H PRN ORAL Itching 09/06/19 14:15 10/06/19 14:14 09/09/19 04:44 Doxycycline Monohydrate (Doxycycline Monohydrate) 100 mg EVERY 12 HOURS ORAL 09/08/19 10:45 09/15/19 10:44 09/09/19 08:21 Furosemide (Lasix) 40 mg DAILY IV 09/06/19 09:00 10/06/19 08:59 09/09/19 08:22 Guaifenesin/ Dextromethorphan (Robitussin DM Syrup) 5 ml Q4H PRN ORAL For Cough 08/28/19 06:15 09/26/19 06:14 Heparin Sodium (Porcine) (Heparin 5000 units/ml) 5,000 units EVERY 12 HOURS SUBQ 08/29/19 09:30 09/28/19 09:29 08/31/19 08:55 Methylprednisolone Sodium Succinate (Solu-MEDROL) 40 mg DAILY IVP 09/06/19 09:00 10/06/19 08:59 09/09/19 08:21 Multivitamins (Multivitamins) 1 tab DAILY ORAL 08/28/19 09:00 09/22/19 08:59 09/09/19 08:21 Nicotine (Nicoderm) 1 patch Q24H TDERMAL 08/28/19 16:00 09/23/19 15:59 09/08/19 17:00 Ondansetron HCl (Zofran) 4 mg Q6H PRN IVP Nausea & Vomiting 08/28/19 09:30 09/22/19 03:29 Pantoprazole (Protonix) 40 mg DAILY ORAL 08/28/19 09:00 09/22/19 08:59 09/09/19 08:21 Spironolactone (Aldactone) 25 mg DAILY ORAL 08/28/19 09:00 09/24/19 08:59 09/09/19 08:23 Thiamine HCl (Vitamin B1) 100 mg DAILY ORAL 08/28/19 09:00 09/22/19 08:59 09/09/19 08:22 Morena Erazo MD Sep 09, 2019 12:47
--- NOTE | 2019-09-09 13:28 | Diagnostic Imaging Report ---
Indication: Shortness of breath Technique: XRAY Chest 1v Comparison: 09/07/2019 Findings: Heart size and mediastinal contours stable. Interstitial opacification/edema noted, slightly increased compared to prior exam. More dense airspace opacities in the bilateral medial lower lungs likely related to atelectasis and/or pneumonia. No radiographically appreciable pneumothorax. Osseous structures stable. Embolization coils again noted in the left upper quadrant. Impression: Worsening of aeration with increasing interstitial opacification/edema. More dense bibasilar airspace disease which may be related to atelectasis or pneumonia also slightly increased.
[2019-09-09 16:00] VITALS: BP 109/49
[2019-09-09] MEDS ORDERED: NS 275ml ONE (17:52)
--- NOTE | 2019-09-09 18:56 | NUR ---
potassium 3.2 replaced with kcl 40 meq po as ordered will continue to monitor
--- NOTE | 2019-09-09 19:30 | NUR ---
NURSE NOTES: Received report from Triston Cross RN. Pt is A&O x 4, ST at 104 BPM, BP 119/57, T 97.8, RR 20, sating at 93%. BIPAP settings: 20/10, FiO2 75%. Pt denies any pain or distress at this time, no signs or symptoms noted. LAC 22g and RAC 20g PIVs are saline locked, patent, flushed with 10ml saline, intact, and asymptomatic. Bed in lowest position, bed alarmed armed, pt wearing yellow socks and gown, call light within reach. Pt informed to use call light if assistance is needed, verbalized understanding. Will continue to monitor closely and plan of care.
[2019-09-09 20:00] VITALS: BP 119/57
--- NOTE | 2019-09-09 21:16 | Pulmonology Progress Note ---
Assessment/Plan Assessment/Plan Pulmonary Progress Note: HPI Patient is a 49-year-old man admitted with altered mental status, MRSA Pneumonia. History of alcohol use. History is limited due to patient's mental status changes. Noted to have Heart Failure with hypoxic respiratory failure, on PRN BiPAP Allergies: Penicillin PMH: Hernia, Cirrhosis All Other Systems: limited - Unable to obtain due to mental status changes Worsening bilateral infiltrates Bipap dependant Physical Exam Vital Signs Noted General Appearance: no apparent distress, alert, non-toxic, PRN Bipap Head: normocephalic, atraumatic Eyes: bilateral eye normal inspection ENT: hearing grossly normal, EOM grossly intact, moist mucus membranes Neck: supple Respiratory: occasional rhonchi Cardiovascular: regular rate, rhythm, normal capillary refill Gastrointestinal: soft, mild distention, ascites, hernia Rectal: deferred Musculoskeletal: moves extremities spontaneously, no lower extremity edema Neurologic: Awake no gross deficits noted, motor vehicles inspector III-XII 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 fib Rate: other - 90s Rhythm: other - A. fib ST Segments: other - QT segment 408, QTc 499 CXR: Pulmonary Congestion CT Head no Contrast No acute intracranial process Subjective ROS Limited/Unobtainable: No Allergies: Coded Allergies: PENICILLINS (Verified Allergy, Intermediate, Rash, 09/01/19) Patient stated at this time Objective Last 24 Hour Vital Signs Date Time Temp Pulse Resp B/P (MAP) Pulse Ox O2 Delivery O2 Flow Rate FiO2 09/09/19 17:28 89 28 95 Facial 80 09/09/19 16:14 75 09/09/19 16:13 Bi-pap 09/09/19 16:00 94 09/09/19 16:00 97.0 97 22 109/49 (69) 94 09/09/19 15:26 88 30 97 Facial 80 09/09/19 12:53 75 09/09/19 12:00 Bi-pap 09/09/19 12:00 97.9 97 26 98/31 (53) 95 09/09/19 12:00 97 09/09/19 11:15 103 38 90 Facial 80 09/09/19 09:15 96 31 94 Facial 75 09/09/19 08:00 97.5 88 22 103/64 (77) 95 09/09/19 08:00 Bi-pap 09/09/19 08:00 104 09/09/19 08:00 75 09/09/19 05:20 103 26 95 Facial 75 09/09/19 04:00 Bi-pap 09/09/19 04:00 75 09/09/19 04:00 89 09/09/19 04:00 97.9 89 28 100/66 (77) 95 09/09/19 03:24 101 28 95 Facial 75 09/09/19 01:15 98 24 96 Facial 75 09/09/19 00:00 Bi-pap 09/09/19 00:00 96 09/09/19 00:00 97.7 96 18 110/69 (83) 95 09/08/19 22:35 104 26 96 Facial 75 Intake and Output 09/08/19 09/09/19 19:00 07:00 Intake Total 420 ml 240 ml Output Total 1000 ml 500 ml Balance -580 ml -260 ml Intake Oral 420 ml 240 ml Output Urine Total 1000 ml 500 ml # Bowel Movements 2 Microbiology Date/Time Source Procedure Growth Status 09/07/19 10:00 Blood Blood Culture - Preliminary NO GROWTH AFTER 24 HOURS Resulted 09/07/19 06:00 Sputum Gram Stain - Final Complete 09/07/19 06:00 Sputum Culture - Final Staphylococcus Aureus - Mrsa Usual Respiratory Kiara Complete 09/07/19 15:40 Urine,Clean Catch Urine Culture - Final Mixed Gram Positive Organism Complete Laboratory Tests 09/09/19 08:46: White Blood Count 18.6H, Red Blood Count 2.77L, Hemoglobin 10.0L, Hematocrit 29.5L, Mean Corpuscular Volume 107H, Mean Corpuscular Hemoglobin 36.2H, Mean Corpuscular Hemoglobin Concent 33.9, Red Cell Distribution Width 14.5, Platelet Count 169, Mean Platelet Volume 7.4, Neutrophils (%) (Auto) , Lymphocytes (%) ( Auto) , Monocytes (%) (Auto) , Eosinophils (%) (Auto) , Basophils (%) (Auto) , Differential Total Cells Counted 100, Neutrophils % (Manual) 69, Lymphocytes % ( Manual) 22, Monocytes % (Manual) 3, Eosinophils % (Manual) 6H, Basophils % ( Manual) 0, Band Neutrophils 0, Platelet Estimate Adequate, Platelet Morphology Normal, Hypochromasia 1+, Anisocytosis 1+, Macrocytosis 1+, Sodium Level 134L, Potassium Level 3.2L, Chloride Level 97L, Carbon Dioxide Level 34H, Anion Gap 3L , Blood Urea Nitrogen 23H, Creatinine 1.1, Estimat Glomerular Filtration Rate > 60, Glucose Level 103, Calcium Level 8.7, Total Bilirubin 2.1H, Direct Bilirubin 1.2H, Aspartate Amino Transf (AST/SGOT) 64H, Alanine Aminotransferase (ALT/SGPT) 52, Alkaline Phosphatase 127H, Total Protein 6.8, Albumin 1.7L, Globulin 5.1, Albumin/Globulin Ratio 0.3L Current Medications Medications (Trade) Dose Ordered Sig/Akash Route PRN Reason Start Time Stop Time Status Last Admin Dose Admin Acetaminophen (Tylenol) 650 mg Q4H PRN ORAL Mild Pain/Temp > 100.5 08/28/19 07:00 09/22/19 10:59 09/07/19 04:09 Diphenhydramine HCl (Benadryl) 25 mg Q6H PRN ORAL Itching 09/06/19 14:15 10/06/19 14:14 09/09/19 18:41 Doxycycline Monohydrate (Doxycycline Monohydrate) 100 mg EVERY 12 HOURS ORAL 09/08/19 10:45 09/15/19 10:44 09/09/19 21:02 Furosemide (Lasix) 40 mg DAILY IV 09/06/19 09:00 10/06/19 08:59 09/09/19 08:22 Guaifenesin/ Dextromethorphan (Robitussin DM Syrup) 5 ml Q4H PRN ORAL For Cough 08/28/19 06:15 09/26/19 06:14 Heparin Sodium (Porcine) (Heparin 5000 units/ml) 5,000 units EVERY 12 HOURS SUBQ 08/29/19 09:30 09/28/19 09:29 08/31/19 08:55 Methylprednisolone Sodium Succinate (Solu-MEDROL) 40 mg DAILY IVP 09/06/19 09:00 10/06/19 08:59 09/09/19 08:21 Multivitamins (Multivitamins) 1 tab DAILY ORAL 08/28/19 09:00 09/22/19 08:59 09/09/19 08:21 Nicotine (Nicoderm) 1 patch Q24H TDERMAL 08/28/19 16:00 09/23/19 15:59 09/09/19 16:19 Ondansetron HCl (Zofran) 4 mg Q6H PRN IVP Nausea & Vomiting 08/28/19 09:30 09/22/19 03:29 Pantoprazole (Protonix) 40 mg DAILY ORAL 08/28/19 09:00 09/22/19 08:59 09/09/19 08:21 Spironolactone (Aldactone) 25 mg DAILY ORAL 08/28/19 09:00 09/24/19 08:59 09/09/19 08:23 Thiamine HCl (Vitamin B1) 100 mg DAILY ORAL 08/28/19 09:00 09/22/19 08:59 09/09/19 08:22 Ar Cook MD Sep 09, 2019 21:16
[2019-09-10] VITALS: BP 115/58
[2019-09-10 04:00] VITALS: BP 91/53
--- NOTE | 2019-09-10 07:39 | NUR ---
NURSE NOTES: report received from Radha Ventura RN.Pt sleeping on bed noted no resp distress ,on Bipap 20/10 Fio2 75%,O2 sat 95%,no signs of pain or discomfort SR on the monitor,call humphreys within reach at bedside,HOB elevated,bed lock in lowest position,will continue with plans of care.
--- NOTE | 2019-09-10 07:39 | NUR ---
HAND-OFF: Report given to Corrine Shaver RN. Pt in stable condition.
--- NOTE | 2019-09-10 07:45 | General Progress Note ---
Assessment/Plan Problem List: (1) AMS (altered mental status) ICD Codes: R41.82 - Altered mental status, unspecified SNOMED: 557726229 Status: stable Assessment/Plan: iv abx bipap follow up cxr diuresis critical and guarded ?ltach Subjective ROS Limited/Unobtainable: No Constitutional: Reports: malaise, weakness HEENT: Reports: no symptoms Cardiovascular: Reports: no symptoms Respiratory: Reports: cough, shortness of breath Gastrointestinal/Abdominal: Reports: no symptoms Genitourinary: Reports: no symptoms Neurologic/Psychiatric: Reports: no symptoms Endocrine: Reports: no symptoms Hematologic/Lymphatic: Reports: anemia Allergies: Coded Allergies: PENICILLINS (Verified Allergy, Intermediate, Rash, 09/01/19) Patient stated at this time All Systems: reviewed and negative except above Subjective on bipap. appears more comfortable. labs noted. desaturates off bipap. cxr shows worsening infiltrates Objective Last 24 Hour Vital Signs Date Time Temp Pulse Resp B/P (MAP) Pulse Ox O2 Delivery O2 Flow Rate FiO2 09/10/19 07:42 105 27 95 Facial 80 09/10/19 05:24 104 22 90 Facial 80 09/10/19 04:00 96.4 102 20 91/53 (66) 91 09/10/19 04:00 Bi-pap 09/10/19 04:00 100 09/10/19 04:00 75 09/10/19 03:30 89 27 98 Facial 80 09/10/19 01:06 80 16 94 Facial 80 09/10/19 00:00 97.0 96 22 115/58 (77) 94 09/10/19 00:00 93 09/10/19 00:00 Bi-pap 09/09/19 23:37 89 27 98 Facial 80 09/09/19 21:06 91 27 97 Facial 80 09/09/19 20:00 109 09/09/19 20:00 96.8 109 22 119/57 (77) 94 09/09/19 20:00 75 09/09/19 20:00 Bi-pap 09/09/19 17:28 89 28 95 Facial 80 09/09/19 16:14 75 09/09/19 16:13 Bi-pap 09/09/19 16:00 94 09/09/19 16:00 97.0 97 22 109/49 (69) 94 09/09/19 15:26 88 30 97 Facial 80 09/09/19 12:53 75 09/09/19 12:00 Bi-pap 09/09/19 12:00 97.9 97 26 98/31 (53) 95 09/09/19 12:00 97 09/09/19 11:15 103 38 90 Facial 80 09/09/19 09:15 96 31 94 Facial 75 09/09/19 08:00 97.5 88 22 103/64 (77) 95 09/09/19 08:00 Bi-pap 09/09/19 08:00 104 09/09/19 08:00 75 Intake and Output 09/09/19 09/10/19 19:00 07:00 Intake Total 320 ml 500 ml Output Total 500 ml 450 ml Balance -180 ml 50 ml Intake Oral 320 ml 500 ml Output Urine Total 500 ml 450 ml Laboratory Tests 09/09/19 08:46: White Blood Count 18.6H, Red Blood Count 2.77L, Hemoglobin 10.0L, Hematocrit 29.5L, Mean Corpuscular Volume 107H, Mean Corpuscular Hemoglobin 36.2H, Mean Corpuscular Hemoglobin Concent 33.9, Red Cell Distribution Width 14.5, Platelet Count 169, Mean Platelet Volume 7.4, Neutrophils (%) (Auto) , Lymphocytes (%) ( Auto) , Monocytes (%) (Auto) , Eosinophils (%) (Auto) , Basophils (%) (Auto) , Differential Total Cells Counted 100, Neutrophils % (Manual) 69, Lymphocytes % ( Manual) 22, Monocytes % (Manual) 3, Eosinophils % (Manual) 6H, Basophils % ( Manual) 0, Band Neutrophils 0, Platelet Estimate Adequate, Platelet Morphology Normal, Hypochromasia 1+, Anisocytosis 1+, Macrocytosis 1+, Sodium Level 134L, Potassium Level 3.2L, Chloride Level 97L, Carbon Dioxide Level 34H, Anion Gap 3L , Blood Urea Nitrogen 23H, Creatinine 1.1, Estimat Glomerular Filtration Rate > 60, Glucose Level 103, Calcium Level 8.7, Total Bilirubin 2.1H, Direct Bilirubin 1.2H, Aspartate Amino Transf (AST/SGOT) 64H, Alanine Aminotransferase (ALT/SGPT) 52, Alkaline Phosphatase 127H, Total Protein 6.8, Albumin 1.7L, Globulin 5.1, Albumin/Globulin Ratio 0.3L Height (Feet): 5 Height (Inches): 8.00 Weight (Pounds): 150 Objective General Appearance: WD/WN, lethargic. on bipap. Neck: supple Cardiovascular: regular rhythm Respiratory/Chest: lungs td rhonchi Abdomen: normal bowel sounds, non tender. small reducible periumbilical hernia Edema: no edema noted Arm (L), no edema noted Arm (R), no edema noted Leg (L), no edema noted Leg (R), no edema noted Pedal (L), no edema noted Pedal (R), no edema noted Generalized Henry Leavitt MD Sep 10, 2019 07:45
[2019-09-10 08:00] VITALS: BP 94/60
--- NOTE | 2019-09-10 08:30 | NUR ---
NURSE NOTES: Pt fully awake at this time ,switched to NRB mask 100% Fio2,to eat breakfast.Pt desaturates when on NRB mask,but no resp distress presented.Pt need to be put back on Bipap 30 min after eating every meals.
[2019-09-10] MEDS: Solu-MEDROL 40mg Inj IVP SCH (08:42)
[2019-09-10] MEDS: Doxycycline Monohydrate 100mg ORAL SCH ×2 (08:42→20:59)
[2019-09-10] MEDS: Thiamine 100mg tab ORAL SCH (08:43)
[2019-09-10] MEDS: Spironolactone 25mg tab ORAL SCH (08:43)
[2019-09-10] MEDS: Heparin 5000 units/ml inj SUBQ SCH ×2 (08:45→21:01)
--- NOTE | 2019-09-10 11:12 | NUR ---
*-* INSURANCE *-* ALL AVAILABLE CLINICALS AND REVIEWS HAVE BEEN FAXED TO: [facility] REESE: DEEPAK P- [phone] X [phone] F- [phone]...........REVIEW/CLINICAL
[2019-09-10 12:00] VITALS: BP 100/63
--- NOTE | 2019-09-10 13:00 | NUR ---
NURSE NOTES: Pt asleep,stable no resp distress noted,on Bipap.
--- NOTE | 2019-09-10 15:29 | NUR ---
ATMOSPHERIC DRIER TENDER NOTES SPOKE WITH DEEPAK FROM [employer] MANAGEMENT TELEPHONE REVIEW GIVEN.
[2019-09-10 16:00] VITALS: BP 102/63
--- NOTE | 2019-09-10 18:06 | Pulmonology Progress Note ---
Assessment/Plan Assessment/Plan Pulmonary Progress Note: HPI Patient is a 49-year-old man admitted with altered mental status, MRSA Pneumonia. History of alcohol use. History is limited due to patient's mental status changes. Noted to have Heart Failure with hypoxic respiratory failure, stable on PRN BiPAP Allergies: Penicillin PMH: Hernia, Cirrhosis All Other Systems: limited - Unable to obtain due to mental status changes Worsening bilateral infiltrates Bipap dependant Physical Exam Vital Signs Noted General Appearance: no apparent distress, alert, non-toxic, PRN Bipap Head: normocephalic, atraumatic Eyes: bilateral eye normal inspection ENT: hearing grossly normal, EOM grossly intact, moist mucus membranes Neck: supple Respiratory: occasional rhonchi bilaterally Cardiovascular: regular rate, rhythm, normal capillary refill Gastrointestinal: soft, mild distention, ascites, hernia Rectal: deferred Musculoskeletal: moves extremities spontaneously, no lower extremity edema Neurologic: Awake no gross deficits noted, health care 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 fib Rate: other - 90s Rhythm: other - A. fib ST Segments: other - QT segment 408, QTc 499 CXR: 09/09/2019: Impression: Worsening of aeration with increasing interstitial opacification/edema. More dense bibasilar airspace disease which may be related to atelectasis or pneumonia also slightly increased. CT Head no Contrast No acute intracranial process Subjective ROS Limited/Unobtainable: No Allergies: Coded Allergies: PENICILLINS (Verified Allergy, Intermediate, Rash, 09/01/19) Patient stated at this time Objective Last 24 Hour Vital Signs Date Time Temp Pulse Resp B/P (MAP) Pulse Ox O2 Delivery O2 Flow Rate FiO2 09/10/19 16:51 99 30 95 Facial 80 09/10/19 16:07 Bi-pap 09/10/19 16:00 75 09/10/19 16:00 99 09/10/19 16:00 98.0 107 28 102/63 (76) 93 09/10/19 14:39 94 27 98 Facial 80 09/10/19 12:00 102 09/10/19 12:00 Bi-pap 09/10/19 12:00 75 09/10/19 12:00 98.0 103 26 100/63 (75) 95 09/10/19 10:57 104 32 93 Facial 80 09/10/19 08:00 100 09/10/19 08:00 Bi-pap 09/10/19 08:00 75 09/10/19 08:00 97.4 103 21 94/60 (71) 95 09/10/19 07:42 105 27 95 Facial 80 09/10/19 05:24 104 22 90 Facial 80 09/10/19 04:00 96.4 102 20 91/53 (66) 91 09/10/19 04:00 Bi-pap 09/10/19 04:00 100 09/10/19 04:00 75 09/10/19 03:30 89 27 98 Facial 80 09/10/19 01:06 80 16 94 Facial 80 09/10/19 00:00 97.0 96 22 115/58 (77) 94 09/10/19 00:00 93 09/10/19 00:00 Bi-pap 09/09/19 23:37 89 27 98 Facial 80 09/09/19 21:06 91 27 97 Facial 80 09/09/19 20:00 109 09/09/19 20:00 96.8 109 22 119/57 (77) 94 09/09/19 20:00 75 09/09/19 20:00 Bi-pap Intake and Output 09/09/19 09/10/19 19:00 07:00 Intake Total 320 ml 500 ml Output Total 500 ml 450 ml Balance -180 ml 50 ml Intake Oral 320 ml 500 ml Output Urine Total 500 ml 450 ml Current Medications Medications (Trade) Dose Ordered Sig/Akash Route PRN Reason Start Time Stop Time Status Last Admin Dose Admin Acetaminophen (Tylenol) 650 mg Q4H PRN ORAL Mild Pain/Temp > 100.5 08/28/19 07:00 09/22/19 10:59 09/07/19 04:09 Diphenhydramine HCl (Benadryl) 25 mg Q6H PRN ORAL Itching 09/06/19 14:15 10/06/19 14:14 09/10/19 08:43 Doxycycline Monohydrate (Doxycycline Monohydrate) 100 mg EVERY 12 HOURS ORAL 09/08/19 10:45 09/15/19 10:44 09/10/19 08:42 Furosemide (Lasix) 40 mg DAILY IV 09/06/19 09:00 10/06/19 08:59 09/10/19 08:42 Guaifenesin/ Dextromethorphan (Robitussin DM Syrup) 5 ml Q4H PRN ORAL For Cough 08/28/19 06:15 09/26/19 06:14 Heparin Sodium (Porcine) (Heparin 5000 units/ml) 5,000 units EVERY 12 HOURS SUBQ 08/29/19 09:30 09/28/19 09:29 09/10/19 08:45 Methylprednisolone Sodium Succinate (Solu-MEDROL) 40 mg DAILY IVP 09/06/19 09:00 10/06/19 08:59 09/10/19 08:42 Multivitamins (Multivitamins) 1 tab DAILY ORAL 08/28/19 09:00 09/22/19 08:59 09/10/19 08:43 Nicotine (Nicoderm) 1 patch Q24H TDERMAL 08/28/19 16:00 09/23/19 15:59 09/10/19 17:14 Ondansetron HCl (Zofran) 4 mg Q6H PRN IVP Nausea & Vomiting 08/28/19 09:30 09/22/19 03:29 Pantoprazole (Protonix) 40 mg DAILY ORAL 08/28/19 09:00 09/22/19 08:59 09/10/19 08:43 Spironolactone (Aldactone) 25 mg DAILY ORAL 08/28/19 09:00 09/24/19 08:59 09/10/19 08:43 Thiamine HCl (Vitamin B1) 100 mg DAILY ORAL 08/28/19 09:00 09/22/19 08:59 09/10/19 08:43 Ar Cook MD Sep 10, 2019 18:06
--- NOTE | 2019-09-10 18:43 | NUR ---
RESPIRATORY NOTE: Received pt on 100% NRB. Pt is refusing to go back on BiPAP at this time, states that "it hurts him". Bedside RN and photographic press screwmaker aware of pt's refusal. BiPAP on standby at bedside, plugged into red outlet. Pt comfortable, in no apparent distress. SpO2 between 98%-100%. Will continue to monitor pt.
--- NOTE | 2019-09-10 19:05 | NUR ---
HAND-OFF: Report given to Jin Bautista RN.Pt still on NRB Mask O2 sat 93%,refuse to be put back on Bipap at this time.
--- NOTE | 2019-09-10 19:30 | NUR ---
NURSE NOTES: Pt report received from Corrine Shaver RN. pt remains stable. pt is alert and oriented times 4. 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 pt is on non rebreather satting at 95% as pt refuses BIPAP at this time no resp distress noted. pt bed is low, locked, armed, bed rails up times 3, call light within reach. will follow plan of care.
[2019-09-10 20:00] VITALS: BP 100/62
[2019-09-11] VITALS: BP 110/68
[2019-09-11 04:00] VITALS: BP 116/70
[2019-09-11 05:39] LABS: BASOPHILS % (AUTO) 0.4 % (0.0-2.0); HEMATOCRIT 25.8 % (42.0-52.0); HEMOGLOBIN 8.8 G/DL (14.2-18.0); LYMPHOCYTES % (AUTO) 11.2 % (20.0-45.0); MEAN CORPUSCULAR VOLUME 106 FL (80-99); MONOCYTES % (AUTO) 8.6 % (1.0-10.0); NEUTROPHILS % (AUTO) 72.8 % (45.0-75.0); PLATELET COUNT 157 K/UL (150-450); RED BLOOD COUNT 2.43 M/UL (4.70-6.10); RED CELL DISTRIBUTION WIDTH 14.3 % (11.6-14.8); WHITE BLOOD COUNT 17.5 K/UL (4.8-10.8)
--- NOTE | 2019-09-11 06:35 | NUR ---
RESPIRATORY NOTE: Received pt on Non rebreather 15L 100%, saturates at 90%. Pt has been refusing the Bipap since last night. No SOB or resp distress noted. Pt is oriented,resting comfortably in the bed. RN and MD aware about the refusal. Will continue to monitor pt.
[2019-09-11 06:44] LABS: ALANINE AMINOTRANSFERASE 45 U/L (12-78); ALBUMIN 1.6 G/DL (3.4-5.0); ALBUMIN/GLOBULIN RATIO 0.4 (1.0-2.7); ALKALINE PHOSPHATASE 113 U/L (46-116); ASPARTATE AMINO TRANSFERASE 51 U/L (15-37); BILIRUBIN,TOTAL 1.4 MG/DL (0.2-1.0); BLOOD UREA NITROGEN 18 mg/dL (7-18); CALCIUM 8.4 MG/DL (8.5-10.1); CHLORIDE 99 MMOL/L (98-107); POTASSIUM 3.3 MMOL/L (3.5-5.1); SODIUM 137 MMOL/L (136-145)
[2019-09-11 07:08] LABS: BILIRUBIN,DIRECT 0.8 MG/DL (0.0-0.3)
--- NOTE | 2019-09-11 07:17 | NUR ---
HAND-OFF: Report given to Brian NAJERA. Pt remains stable.
[2019-09-11 07:49] LABS: CARBON DIOXIDE 34 MMOL/L (21-32)
[2019-09-11 08:00] VITALS: BP_SYST 120; BP_SYST 121; BP_DIAS 60; BP_DIAS 68
--- NOTE | 2019-09-11 08:15 | NUR ---
NURSE NOTES: Pt is awake and AOX3, pt is on non rebreather at 15L, pt to keep nonrebreather on at all times even when eating. Pt denies pain. Pt is appearing NSR on court recording monitor. Left FA 18g S.L. Bed in lowest position, will continue with plan of care
--- NOTE | 2019-09-11 09:15 | General Progress Note ---
Assessment/Plan Problem List: (1) AMS (altered mental status) ICD Codes: R41.82 - Altered mental status, unspecified SNOMED: 962445438 Status: stable Assessment/Plan: iv abx bipap follow up cxr diuresis critical and guarded ?ltach Subjective ROS Limited/Unobtainable: Yes Constitutional: Reports: malaise HEENT: Reports: no symptoms Cardiovascular: Reports: no symptoms Respiratory: Reports: cough, shortness of breath Gastrointestinal/Abdominal: Reports: no symptoms Genitourinary: Reports: no symptoms Neurologic/Psychiatric: Reports: no symptoms Endocrine: Reports: no symptoms Hematologic/Lymphatic: Reports: no symptoms Allergies: Coded Allergies: PENICILLINS (Verified Allergy, Intermediate, Rash, 09/01/19) Patient stated at this time All Systems: reviewed and negative except above Subjective on nrbm. appears more comfortable. labs noted. desaturates off o2 cxr shows worsening infiltrates Objective Last 24 Hour Vital Signs Date Time Temp Pulse Resp B/P (MAP) Pulse Ox O2 Delivery O2 Flow Rate FiO2 09/11/19 08:42 104 23 99 09/11/19 08:00 98.7 110 20 120/68 (85) 97 09/11/19 07:59 15.0 09/11/19 07:55 Bi-pap 09/11/19 06:35 90 Non-Rebreather 15.0 100 09/11/19 04:00 101 09/11/19 04:00 100 09/11/19 04:00 97.9 109 24 116/70 (85) 98 09/11/19 04:00 Bi-pap 09/11/19 00:00 100 09/11/19 00:00 97.9 100 25 110/68 (82) 97 09/11/19 00:00 Bi-pap 09/11/19 00:00 117 09/10/19 20:00 Bi-pap 09/10/19 20:00 98.1 103 25 100/62 (75) 95 09/10/19 20:00 97 09/10/19 20:00 100 09/10/19 18:41 100 Non-Rebreather 15.0 100 09/10/19 16:51 99 30 95 Facial 80 09/10/19 16:07 Bi-pap 09/10/19 16:00 75 09/10/19 16:00 99 09/10/19 16:00 98.0 107 28 102/63 (76) 93 09/10/19 14:39 94 27 98 Facial 80 09/10/19 12:00 102 09/10/19 12:00 Bi-pap 09/10/19 12:00 75 09/10/19 12:00 98.0 103 26 100/63 (75) 95 09/10/19 10:57 104 32 93 Facial 80 Intake and Output 09/10/19 09/11/19 19:00 07:00 Intake Total 720 ml Output Total 1100 ml Balance -380 ml Intake Oral 720 ml Output Urine Total 1100 ml # Bowel Movements 2 Laboratory Tests 09/11/19 04:35: White Blood Count 17.5H, Red Blood Count 2.43L, Hemoglobin 8.8L, Hematocrit 25.8L, Mean Corpuscular Volume 106H, Mean Corpuscular Hemoglobin 36.2H, Mean Corpuscular Hemoglobin Concent 34.2, Red Cell Distribution Width 14.3, Platelet Count 157, Mean Platelet Volume 7.3, Neutrophils (%) (Auto) 72.8, Lymphocytes (% ) (Auto) 11.2L, Monocytes (%) (Auto) 8.6, Eosinophils (%) (Auto) 7.0H, Basophils (%) (Auto) 0.4, Sodium Level 137, Potassium Level 3.3L, Chloride Level 99, Carbon Dioxide Level 34H, Blood Urea Nitrogen 18, Creatinine 1.0, Estimat Glomerular Filtration Rate > 60, Glucose Level 99, Calcium Level 8.4L, Total Bilirubin 1.4H, Direct Bilirubin 0.8H, Aspartate Amino Transf (AST/SGOT) 51H, Alanine Aminotransferase (ALT/SGPT) 45, Alkaline Phosphatase 113, Total Protein 6.0L, Albumin 1.6L, Globulin 4.4, Albumin/Globulin Ratio 0.4L Height (Feet): 5 Height (Inches): 8.00 Weight (Pounds): 146 Objective General Appearance: WD/WN, lethargic. on bipap. Neck: supple Cardiovascular: regular rhythm Respiratory/Chest: lungs td rhonchi Abdomen: normal bowel sounds, non tender. small reducible periumbilical hernia Edema: no edema noted Arm (L), no edema noted Arm (R), no edema noted Leg (L), no edema noted Leg (R), no edema noted Pedal (L), no edema noted Pedal (R), no edema noted Generalized Henry Leavitt MD Sep 11, 2019 09:15
[2019-09-11] MEDS: Spironolactone 25mg tab ORAL SCH (09:26)
[2019-09-11] MEDS: Thiamine 100mg tab ORAL SCH (09:26)
[2019-09-11] MEDS: Solu-MEDROL 40mg Inj IVP SCH (09:27)
[2019-09-11] MEDS: Heparin 5000 units/ml inj SUBQ SCH ×2 (09:28→21:00)
[2019-09-11] MEDS: Doxycycline Monohydrate 100mg ORAL SCH (09:29)
--- NOTE | 2019-09-11 10:51 | Infectious Diseases Prog Note ---
Assessment/Plan Assessment/Plan antibiotics : doxycycline A 1. MRSA pneumonia 2. respiratory failure 3. enterobacter UTI s/p rx 4. cirrhosis 5. ascites s/p paracentesis no SBP 6. thrombocytopenia 7. leucocytosis likely secondary to steroids P 1. d/c doxycycline 2. start iv vancomycin 3. will follow up cultures Subjective Constitutional: Denies: fever, chills Respiratory: Reports: shortness of breath - decreased, productive cough - decreased Gastrointestinal/Abdominal: Denies: nausea, vomiting, diarrhea Musculoskeletal: Denies: pain Allergies: Coded Allergies: PENICILLINS (Verified Allergy, Intermediate, Rash, 09/01/19) Patient stated at this time Objective Vital Signs Last 24 Hour Vital Signs Date Time Temp Pulse Resp B/P (MAP) Pulse Ox O2 Delivery O2 Flow Rate FiO2 09/11/19 08:42 104 23 99 09/11/19 08:00 114 09/11/19 08:00 98.7 110 20 120/68 (85) 97 09/11/19 07:59 15.0 09/11/19 07:55 Bi-pap 09/11/19 06:35 90 Non-Rebreather 15.0 100 09/11/19 04:00 101 09/11/19 04:00 100 09/11/19 04:00 97.9 109 24 116/70 (85) 98 09/11/19 04:00 Bi-pap 09/11/19 00:00 100 09/11/19 00:00 97.9 100 25 110/68 (82) 97 09/11/19 00:00 Bi-pap 09/11/19 00:00 117 09/10/19 20:00 Bi-pap 09/10/19 20:00 98.1 103 25 100/62 (75) 95 09/10/19 20:00 97 09/10/19 20:00 100 09/10/19 18:41 100 Non-Rebreather 15.0 100 09/10/19 16:51 99 30 95 Facial 80 09/10/19 16:07 Bi-pap 09/10/19 16:00 75 09/10/19 16:00 99 09/10/19 16:00 98.0 107 28 102/63 (76) 93 09/10/19 14:39 94 27 98 Facial 80 09/10/19 12:00 102 09/10/19 12:00 Bi-pap 09/10/19 12:00 75 09/10/19 12:00 98.0 103 26 100/63 (75) 95 09/10/19 10:57 104 32 93 Facial 80 Height (Feet): 5 Height (Inches): 8.00 Weight (Pounds): 146 Respiratory/Chest: lungs clear Cardiovascular: normal rate, regular rhythm, no gallop/murmur Abdomen: soft, non tender Extremities: no edema Laboratory Tests Test 09/11/19 04:35 White Blood Count 17.5 K/UL (4.8-10.8) H Red Blood Count 2.43 M/UL (4.70-6.10) L Hemoglobin 8.8 G/DL (14.2-18.0) L Hematocrit 25.8 % (42.0-52.0) L Mean Corpuscular Volume 106 FL (80-99) H Mean Corpuscular Hemoglobin 36.2 PG (27.0-31.0) H Mean Corpuscular Hemoglobin Concent 34.2 G/DL (32.0-36.0) Red Cell Distribution Width 14.3 % (11.6-14.8) Platelet Count 157 K/UL (150-450) Mean Platelet Volume 7.3 FL (6.5-10.1) Neutrophils (%) (Auto) 72.8 % (45.0-75.0) Lymphocytes (%) (Auto) 11.2 % (20.0-45.0) L Monocytes (%) (Auto) 8.6 % (1.0-10.0) Eosinophils (%) (Auto) 7.0 % (0.0-3.0) H Basophils (%) (Auto) 0.4 % (0.0-2.0) Sodium Level 137 MMOL/L (136-145) Potassium Level 3.3 MMOL/L (3.5-5.1) L Chloride Level 99 MMOL/L (98-107) Carbon Dioxide Level 34 MMOL/L (21-32) H Blood Urea Nitrogen 18 mg/dL (7-18) Creatinine 1.0 MG/DL (0.55-1.30) Estimat Glomerular Filtration Rate > 60 mL/min (>60) Glucose Level 99 MG/DL (74-106) Calcium Level 8.4 MG/DL (8.5-10.1) L Total Bilirubin 1.4 MG/DL (0.2-1.0) H Direct Bilirubin 0.8 MG/DL (0.0-0.3) H Aspartate Amino Transf (AST/SGOT) 51 U/L (15-37) H Alanine Aminotransferase (ALT/SGPT) 45 U/L (12-78) Alkaline Phosphatase 113 U/L (46-116) Total Protein 6.0 G/DL (6.4-8.2) L Albumin 1.6 G/DL (3.4-5.0) L Globulin 4.4 g/dL Albumin/Globulin Ratio 0.4 (1.0-2.7) L Current Medications Medications (Trade) Dose Ordered Sig/Akash Route PRN Reason Start Time Stop Time Status Last Admin Dose Admin Acetaminophen (Tylenol) 650 mg Q4H PRN ORAL Mild Pain/Temp > 100.5 08/28/19 07:00 09/22/19 10:59 09/07/19 04:09 Diphenhydramine HCl (Benadryl) 25 mg Q6H PRN ORAL Itching 09/06/19 14:15 10/06/19 14:14 09/11/19 06:17 Doxycycline Monohydrate (Doxycycline Monohydrate) 100 mg EVERY 12 HOURS ORAL 09/08/19 10:45 09/15/19 10:44 09/11/19 09:29 Furosemide (Lasix) 40 mg DAILY IV 09/06/19 09:00 10/06/19 08:59 09/11/19 09:29 Guaifenesin/ Dextromethorphan (Robitussin DM Syrup) 5 ml Q4H PRN ORAL For Cough 08/28/19 06:15 09/26/19 06:14 Heparin Sodium (Porcine) (Heparin 5000 units/ml) 5,000 units EVERY 12 HOURS SUBQ 08/29/19 09:30 09/28/19 09:29 09/11/19 09:28 Methylprednisolone Sodium Succinate (Solu-MEDROL) 40 mg DAILY IVP 09/06/19 09:00 10/06/19 08:59 09/11/19 09:27 Multivitamins (Multivitamins) 1 tab DAILY ORAL 08/28/19 09:00 09/22/19 08:59 09/11/19 09:27 Nicotine (Nicoderm) 1 patch Q24H TDERMAL 08/28/19 16:00 09/23/19 15:59 09/10/19 17:14 Ondansetron HCl (Zofran) 4 mg Q6H PRN IVP Nausea & Vomiting 08/28/19 09:30 09/22/19 03:29 Pantoprazole (Protonix) 40 mg DAILY ORAL 08/28/19 09:00 09/22/19 08:59 09/11/19 09:26 Spironolactone (Aldactone) 25 mg DAILY ORAL 08/28/19 09:00 09/24/19 08:59 09/11/19 09:26 Thiamine HCl (Vitamin B1) 100 mg DAILY ORAL 08/28/19 09:00 09/22/19 08:59 09/11/19 09:26 Morena Erazo MD Sep 11, 2019 10:51
[2019-09-11 12:00] VITALS: BP 101/62
[2019-09-11] MEDS ORDERED: Vancomycin 1.25gm/NS Premix q24h IVPB SCH (12:00)
[2019-09-11 16:00] VITALS: BP 118/71
--- NOTE | 2019-09-11 18:30 | NUR ---
NURSE NOTES: Pt is awake and AOX3, pt is on non rebreather at 15L, pt to keep nonrebreather on at all times even when eating. Pt denies pain. Pt is appearing NSR on secured entrance monitor. Left FA 18g S.L. Bed in lowest position, will continue with plan of care
[2019-09-11 20:00] VITALS: BP 118/71
--- NOTE | 2019-09-11 20:00 | NUR ---
NURSE NOTES: received pt awake and alert no c/o pain on nrm o2 15l o2 sat 92 o/o no acute resp distress noted
[2019-09-11] MEDS: Vancomycin 500mg/D5W 110ml IVPB SCH ×2 (20:06)
--- NOTE | 2019-09-11 21:55 | Pulmonology Progress Note ---
Assessment/Plan Assessment/Plan Pulmonary Progress Note: HPI Patient is a 49-year-old man admitted with altered mental status, MRSA Pneumonia. History of alcohol use. History is limited due to patient's mental status changes. Noted to have Heart Failure with hypoxic respiratory failure, not tolerating BiPAP, stable on FM O2 Allergies: Penicillin PMH: Hernia, Cirrhosis All Other Systems: limited - Unable to obtain due to mental status changes Worsening bilateral infiltrates Bipap dependant Physical Exam Vital Signs Noted General Appearance: no apparent distress, alert, non-toxic, PRN Bipap Head: normocephalic, atraumatic Eyes: bilateral eye normal inspection ENT: hearing grossly normal, EOM grossly intact, moist mucus membranes Neck: supple Respiratory: occasional rhonchi bilaterally Cardiovascular: regular rate, rhythm, normal capillary refill Gastrointestinal: soft, mild distention, ascites, hernia Rectal: deferred Musculoskeletal: moves extremities spontaneously, no lower extremity edema Neurologic: Awake no gross deficits noted, displayer merchandise III-XII nml as tested - Unable to fully test but no gross deficits noted, sensory intact, moving all 4 extremities and withdraws from pain Skin: warm/dry, normal turgor Impression - MRSA Pneumonia - Persistent leucocytosis - Hypooxic respiratory Failure on PRN BiPAP - CHFpEF - Atrial Fibrillation - Cirrhosis, h/o ETOH Use, ascites s/p Paracentesis - Homeless - Enterobacter UTI s/p rx - Thrombocytopenia Plan - Antibiotics Mx ID - O2/BiPAP PRN - Diurese PRN - HHN - PPX - Monitor labs - Imaging PRN Laboratory Tests Noted EKG: A. fib Rate: other - 90s Rhythm: other - A. fib ST Segments: other - QT segment 408, QTc 499 CXR: 09/09/2019: Impression: Worsening of aeration with increasing interstitial opacification/edema. More dense bibasilar airspace disease which may be related to atelectasis or pneumonia also slightly increased. CT Head no Contrast No acute intracranial process Subjective ROS Limited/Unobtainable: No Allergies: Coded Allergies: PENICILLINS (Verified Allergy, Intermediate, Rash, 09/01/19) Patient stated at this time Objective Last 24 Hour Vital Signs Date Time Temp Pulse Resp B/P (MAP) Pulse Ox O2 Delivery O2 Flow Rate FiO2 09/11/19 19:46 95 Non-Rebreather 15.0 100 12/28/19 19:12 100 09/11/19 17:00 95 23 97 09/11/19 16:00 15.0 09/11/19 16:00 98 09/11/19 16:00 98.1 100 18 118/71 (87) 92 09/11/19 16:00 Non-Rebreather 09/11/19 15:17 104 17 93 09/11/19 13:15 110 20 95 09/11/19 12:00 104 09/11/19 12:00 15.0 09/11/19 12:00 Bi-pap 09/11/19 12:00 98.8 104 18 101/62 (75) 94 09/11/19 10:30 100 19 93 09/11/19 08:42 104 23 99 09/11/19 08:00 114 09/11/19 08:00 98.7 110 20 120/68 (85) 97 09/11/19 07:59 15.0 09/11/19 07:55 Bi-pap 09/11/19 06:35 90 Non-Rebreather 15.0 100 09/11/19 04:00 101 09/11/19 04:00 100 09/11/19 04:00 97.9 109 24 116/70 (85) 98 09/11/19 04:00 Bi-pap 09/11/19 00:00 100 09/11/19 00:00 97.9 100 25 110/68 (82) 97 09/11/19 00:00 Bi-pap 09/11/19 00:00 117 Intake and Output 09/10/19 09/11/19 19:00 07:00 Intake Total 720 ml Output Total 1100 ml Balance -380 ml Intake Oral 720 ml Output Urine Total 1100 ml # Bowel Movements 2 Laboratory Tests 09/11/19 04:35: White Blood Count 17.5H, Red Blood Count 2.43L, Hemoglobin 8.8L, Hematocrit 25.8L, Mean Corpuscular Volume 106H, Mean Corpuscular Hemoglobin 36.2H, Mean Corpuscular Hemoglobin Concent 34.2, Red Cell Distribution Width 14.3, Platelet Count 157, Mean Platelet Volume 7.3, Neutrophils (%) (Auto) 72.8, Lymphocytes (% ) (Auto) 11.2L, Monocytes (%) (Auto) 8.6, Eosinophils (%) (Auto) 7.0H, Basophils (%) (Auto) 0.4, Sodium Level 137, Potassium Level 3.3L, Chloride Level 99, Carbon Dioxide Level 34H, Blood Urea Nitrogen 18, Creatinine 1.0, Estimat Glomerular Filtration Rate > 60, Glucose Level 99, Calcium Level 8.4L, Total Bilirubin 1.4H, Direct Bilirubin 0.8H, Aspartate Amino Transf (AST/SGOT) 51H, Alanine Aminotransferase (ALT/SGPT) 45, Alkaline Phosphatase 113, Total Protein 6.0L, Albumin 1.6L, Globulin 4.4, Albumin/Globulin Ratio 0.4L Current Medications Medications (Trade) Dose Ordered Sig/Akash Route PRN Reason Start Time Stop Time Status Last Admin Dose Admin Acetaminophen (Tylenol) 650 mg Q4H PRN ORAL Mild Pain/Temp > 100.5 08/28/19 07:00 09/22/19 10:59 09/07/19 04:09 Diphenhydramine HCl (Benadryl) 25 mg Q6H PRN ORAL Itching 09/06/19 14:15 10/06/19 14:14 09/11/19 20:06 Furosemide (Lasix) 40 mg DAILY IV 09/06/19 09:00 10/06/19 08:59 09/11/19 09:29 Guaifenesin/ Dextromethorphan (Robitussin DM Syrup) 5 ml Q4H PRN ORAL For Cough 08/28/19 06:15 09/26/19 06:14 Heparin Sodium (Porcine) (Heparin 5000 units/ml) 5,000 units EVERY 12 HOURS SUBQ 08/29/19 09:30 09/28/19 09:29 09/11/19 09:28 Methylprednisolone Sodium Succinate (Solu-MEDROL) 40 mg DAILY IVP 09/06/19 09:00 10/06/19 08:59 09/11/19 09:27 Multivitamins (Multivitamins) 1 tab DAILY ORAL 08/28/19 09:00 09/22/19 08:59 09/11/19 09:27 Nicotine (Nicoderm) 1 patch Q24H TDERMAL 08/28/19 16:00 09/23/19 15:59 09/11/19 17:16 Ondansetron HCl (Zofran) 4 mg Q6H PRN IVP Nausea & Vomiting 08/28/19 09:30 09/22/19 03:29 Pantoprazole (Protonix) 40 mg DAILY ORAL 08/28/19 09:00 09/22/19 08:59 09/11/19 09:26 Spironolactone (Aldactone) 25 mg DAILY ORAL 08/28/19 09:00 09/24/19 08:59 09/11/19 09:26 Thiamine HCl (Vitamin B1) 100 mg DAILY ORAL 08/28/19 09:00 09/22/19 08:59 09/11/19 09:26 Vancomycin HCl (Vanco rx to dose) 1 ea DAILY PRN MISC Per rx protocol 09/11/19 11:00 10/11/19 10:59 Vancomycin HCl 500 mg/Dextrose 110 ml @ 110 mls/hr Q8H IVPB 09/11/19 20:00 09/16/19 19:59 09/11/19 20:06 Ar Cook MD Sep 11, 2019 21:55
[2019-09-12] VITALS (7 sets, daily range): BP systolic 89–125; BP diastolic 51–80
--- NOTE | 2019-09-12 | NUR ---
NURSE NOTES: REFUSE B-PAP O2 SAT 94-97 O/O NO ACUTE RESP DISTRESS
[2019-09-12] MEDS: Vancomycin 500mg/D5W 110ml IVPB SCH ×4 (04:04→12:14)
--- NOTE | 2019-09-12 06:00 | NUR ---
NURSE NOTES: asleep no acute resp distress on nrm o2 sat 94
--- NOTE | 2019-09-12 07:36 | NUR ---
HAND-OFF: Report given to balaji rn using sbar.
--- NOTE | 2019-09-12 07:40 | NUR ---
NURSE NOTES: Report received from Aurora NAJERA.Pt asleep in bed with NRB mask 100%,O2 sat 94%,noted no resp distress easily arouses from sleep,denies any complaints,S-Tach on the monitor,voids per urinal,skin warm and dry IV site to LFA heplock intact,SR up x2 call humphreys within reach,HOB elevated,will continue with plans of care.
[2019-09-12] MEDS: Solu-MEDROL 40mg Inj IVP SCH (08:15)
[2019-09-12] MEDS: Thiamine 100mg tab ORAL SCH (08:17)
[2019-09-12] MEDS: Spironolactone 25mg tab ORAL SCH (08:17)
[2019-09-12] MEDS: Heparin 5000 units/ml inj SUBQ SCH ×2 (08:19→20:34)
--- NOTE | 2019-09-12 08:20 | NUR ---
NURSE NOTES: Dr Leavitt at bedside,discussed with pt re plans of care,,ordered lab CMP,K replacement ordered too.
--- NOTE | 2019-09-12 08:25 | General Progress Note ---
Assessment/Plan Problem List: (1) AMS (altered mental status) ICD Codes: R41.82 - Altered mental status, unspecified SNOMED: [id number] Status: stable Assessment/Plan: iv abx bipap follow up cxr diuresis critical and guarded ?ltach Subjective ROS Limited/Unobtainable: No Constitutional: Reports: malaise, weakness HEENT: Reports: no symptoms Cardiovascular: Reports: no symptoms Respiratory: Reports: shortness of breath Gastrointestinal/Abdominal: Reports: no symptoms Genitourinary: Reports: no symptoms Neurologic/Psychiatric: Reports: pre-existing deficit Endocrine: Reports: no symptoms Hematologic/Lymphatic: Reports: no symptoms Allergies: Coded Allergies: PENICILLINS (Verified Allergy, Intermediate, Rash, 09/01/19) Patient stated at this time All Systems: reviewed and negative except above Subjective on nrbm. no complaints. refusing bipap. sats ok on nrb Objective Last 24 Hour Vital Signs Date Time Temp Pulse Resp B/P (MAP) Pulse Ox O2 Delivery O2 Flow Rate FiO2 09/12/19 04:46 97.9 94 20 100/51 (67) 96 09/12/19 04:00 15.0 09/12/19 04:00 Non-Rebreather 09/12/19 04:00 97.9 94 20 100/51 (67) 96 09/12/19 04:00 96 09/12/19 00:00 97.7 105 20 125/80 (95) 92 09/12/19 00:00 107 09/12/19 00:00 Non-Rebreather 09/12/19 00:00 15.0 09/11/19 20:00 97.9 106 20 118/71 (87) 92 09/11/19 20:00 15.0 09/11/19 20:00 Non-Rebreather 09/11/19 19:46 95 Non-Rebreather 15.0 100 09/11/19 19:12 100 09/11/19 17:00 95 23 97 09/11/19 16:00 15.0 09/11/19 16:00 98 09/11/19 16:00 98.1 100 18 118/71 (87) 92 09/11/19 16:00 Non-Rebreather 09/11/19 15:17 104 17 93 09/11/19 13:15 110 20 95 09/11/19 12:00 104 09/11/19 12:00 15.0 09/11/19 12:00 Bi-pap 09/11/19 12:00 98.8 104 18 101/62 (75) 94 09/11/19 10:30 100 19 93 09/11/19 08:42 104 23 99 Intake and Output 09/11/19 09/12/19 19:00 07:00 Intake Total 820 ml Output Total 1400 ml 600 ml Balance -1400 ml 220 ml Intake Oral 600 ml IV Total 220 ml Output Urine Total 1400 ml 600 ml # Bowel Movements 1 Height (Feet): 5 Height (Inches): 8.00 Weight (Pounds): 146 Objective General Appearance: WD/WN, lethargic. on bipap. Neck: supple Cardiovascular: regular rhythm Respiratory/Chest: lungs td rhonchi Abdomen: normal bowel sounds, non tender. small reducible periumbilical hernia Edema: no edema noted Arm (L), no edema noted Arm (R), no edema noted Leg (L), no edema noted Leg (R), no edema noted Pedal (L), no edema noted Pedal (R), no edema noted Generalized Henry Leavitt MD Sep 12, 2019 08:25
--- NOTE | 2019-09-12 09:38 | Infectious Diseases Prog Note ---
Assessment/Plan Assessment/Plan IMPRESSION: 1. MRSA pneumonia. 2. Enterobacter UTI that was treated. 3. Cirrhosis with ascites. 4. MRSA colonization. 5. Anemia. 6. Thrombocytopenia. 7. Hypokalemia corrected 8. Hypercapnic respiratory failure. 9. Leukocytosis RECOMMENDATIONS: Continue IV Vancomycin Subjective ROS Limited/Unobtainable: Yes Constitutional: Denies: fever Allergies: Coded Allergies: PENICILLINS (Verified Allergy, Intermediate, Rash, 09/01/19) Patient stated at this time Objective Vital Signs Last 24 Hour Vital Signs Date Time Temp Pulse Resp B/P (MAP) Pulse Ox O2 Delivery O2 Flow Rate FiO2 09/12/19 08:55 93 Non-Rebreather 15.0 100 09/12/19 04:46 97.9 94 20 100/51 (67) 96 09/12/19 04:00 15.0 09/12/19 04:00 Non-Rebreather 09/12/19 04:00 97.9 94 20 100/51 (67) 96 09/12/19 04:00 96 09/12/19 00:00 97.7 105 20 125/80 (95) 92 09/12/19 00:00 107 09/12/19 00:00 Non-Rebreather 09/12/19 00:00 15.0 09/11/19 20:00 97.9 106 20 118/71 (87) 92 09/11/19 20:00 15.0 09/11/19 20:00 Non-Rebreather 09/11/19 19:46 95 Non-Rebreather 15.0 100 09/11/19 19:12 100 09/11/19 17:00 95 23 97 09/11/19 16:00 15.0 09/11/19 16:00 98 09/11/19 16:00 98.1 100 18 118/71 (87) 92 09/11/19 16:00 Non-Rebreather 09/11/19 15:17 104 17 93 09/11/19 13:15 110 20 95 09/11/19 12:00 104 09/11/19 12:00 15.0 09/11/19 12:00 Bi-pap 09/11/19 12:00 98.8 104 18 101/62 (75) 94 09/11/19 10:30 100 19 93 Height (Feet): 5 Height (Inches): 8.00 Weight (Pounds): 146 General Appearance: no acute distress HEENT: mucous membranes moist Respiratory/Chest: lungs clear Cardiovascular: normal rate Abdomen: soft, non tender Extremities: no edema Neurologic/Psychiatric: other - sleeping Current Medications Medications (Trade) Dose Ordered Sig/Akash Route PRN Reason Start Time Stop Time Status Last Admin Dose Admin Acetaminophen (Tylenol) 650 mg Q4H PRN ORAL Mild Pain/Temp > 100.5 08/28/19 07:00 09/22/19 10:59 09/07/19 04:09 Diphenhydramine HCl (Benadryl) 25 mg Q6H PRN ORAL Itching 09/06/19 14:15 10/06/19 14:14 09/12/19 08:17 Furosemide (Lasix) 40 mg DAILY IV 09/06/19 09:00 10/06/19 08:59 09/12/19 08:15 Guaifenesin/ Dextromethorphan (Robitussin DM Syrup) 5 ml Q4H PRN ORAL For Cough 08/28/19 06:15 09/26/19 06:14 Heparin Sodium (Porcine) (Heparin 5000 units/ml) 5,000 units EVERY 12 HOURS SUBQ 08/29/19 09:30 09/28/19 09:29 09/12/19 08:19 Methylprednisolone Sodium Succinate (Solu-MEDROL) 40 mg DAILY IVP 09/06/19 09:00 10/06/19 08:59 09/12/19 08:15 Multivitamins (Multivitamins) 1 tab DAILY ORAL 08/28/19 09:00 09/22/19 08:59 09/12/19 08:17 Nicotine (Nicoderm) 1 patch Q24H TDERMAL 08/28/19 16:00 09/23/19 15:59 09/11/19 17:16 Ondansetron HCl (Zofran) 4 mg Q6H PRN IVP Nausea & Vomiting 08/28/19 09:30 09/22/19 03:29 Pantoprazole (Protonix) 40 mg DAILY ORAL 08/28/19 09:00 09/22/19 08:59 09/12/19 08:17 Potassium Chloride (K-Dur) 20 meq ONCE ORAL 09/12/19 08:30 09/12/19 10:30 09/12/19 09:05 Spironolactone (Aldactone) 25 mg DAILY ORAL 08/28/19 09:00 09/24/19 08:59 09/12/19 08:17 Thiamine HCl (Vitamin B1) 100 mg DAILY ORAL 08/28/19 09:00 09/22/19 08:59 09/12/19 08:17 Vancomycin HCl (Vanco rx to dose) 1 ea DAILY PRN MISC Per rx protocol 09/11/19 11:00 10/11/19 10:59 Vancomycin HCl 500 mg/Dextrose 110 ml @ 110 mls/hr Q8H IVPB 09/11/19 20:00 09/16/19 19:59 09/12/19 04:04 Jamie Swanson MD Sep 12, 2019 09:38
--- NOTE | 2019-09-12 13:00 | NUR ---
NURSE NOTES: Pt resting in bed asleep,stable noted no resp distress continue on NRB mask at 100%,O2 sat 94%.
--- NOTE | 2019-09-12 13:25 | NUR ---
RD ASSESSMENT & RECOMMENDATIONS SEE CARE ACTIVITY FOR COMPLETE ASSESSMENT DAILY ESTIMATED NEEDS: Needs based on Liver, Pulmonary 72.2kg 25-30 kcals/kg [id number] total kcals 1-1.5 g protein/kg 72-108 g total protein Fluid per MD NUTRITION DIAGNOSIS: * Decreased sodium and fat needs r/t clinical status, ascites, as evidenced by s/p paracentesis, elev LFT's, elev T bili * Swallowing difficulty R/T dysphagia, respiratory status as evidenced by pt on [facility] soft finely chopped texture, mostly on BIPAP, on non-rebreather during meals. CURRENT DIET:Cardiac, mech soft finely chopped PO DIET RECOMMENDATIONS: Low Fat/ Low Na diet / texture per [employer] ADDITIONAL RECOMMENDATIONS: 1) Obtain daily standing weight for accuracy 2) Ensure once daily w/ variable PO intake (350kcal/20g prot per bottle) 3) Continue thiamine/ MVI Rec Folate 4) Monitor lytes daily w/ diuretics, replete as needed (K low) 5) Monitor BGs closely while on steroidal med- good control (09/12)
--- NOTE | 2019-09-12 18:34 | Pulmonology Progress Note ---
Assessment/Plan Assessment/Plan Pulmonary Progress Note: HPI Patient is a 49-year-old man admitted with altered mental status, MRSA Pneumonia. History of alcohol use. Noted to have Heart Failure, hypoxic respiratory failure, previously prolongued peroid of Bipap dependency, stable O2 sats on FM O2 for a few days. Slight improvement in C Allergies: Penicillin PMH: Hernia, Cirrhosis All Other Systems: limited - Unable to obtain due to mental status changes Worsening bilateral infiltrates Bipap dependant Physical Exam Vital Signs Noted General Appearance: no apparent distress, alert, non-toxic, PRN Bipap Head: normocephalic, atraumatic Eyes: bilateral eye normal inspection ENT: hearing grossly normal, EOM grossly intact, moist mucus membranes Neck: supple Respiratory: occasional rhonchi bilaterally Cardiovascular: regular rate, rhythm, normal capillary refill Gastrointestinal: soft, mild distention, ascites, hernia Rectal: deferred Musculoskeletal: moves extremities spontaneously, no lower extremity edema Neurologic: Awake no gross deficits noted, 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 fib Rate: other - 90s Rhythm: other - A. fib ST Segments: other - QT segment 408, QTc 499 CXR: 09/09/2019: Impression: Worsening of aeration with increasing interstitial opacification/edema. More dense bibasilar airspace disease which may be related to atelectasis or pneumonia also slightly increased. CT Head no Contrast No acute intracranial process Subjective ROS Limited/Unobtainable: No Allergies: Coded Allergies: PENICILLINS (Verified Allergy, Intermediate, Rash, 09/01/19) Patient stated at this time Objective Last 24 Hour Vital Signs Date Time Temp Pulse Resp B/P (MAP) Pulse Ox O2 Delivery O2 Flow Rate FiO2 09/12/19 16:00 98.5 111 19 110/63 (79) 96 09/12/19 16:00 109 09/12/19 16:00 Non-Rebreather 15.0 09/12/19 16:00 15.0 100 09/12/19 12:00 15.0 100 09/12/19 12:00 110 09/12/19 12:00 97.6 102 18 120/73 (89) 95 09/12/19 12:00 Non-Rebreather 15.0 09/12/19 08:55 93 Non-Rebreather 15.0 100 09/12/19 08:00 Non-Rebreather 09/12/19 08:00 15.0 100 09/12/19 08:00 98.4 106 18 112/61 (78) 96 09/12/19 08:00 119 09/12/19 04:46 97.9 94 20 100/51 (67) 96 09/12/19 04:00 15.0 09/12/19 04:00 Non-Rebreather 09/12/19 04:00 97.9 94 20 100/51 (67) 96 09/12/19 04:00 96 09/12/19 00:00 97.7 105 20 125/80 (95) 92 09/12/19 00:00 107 09/12/19 00:00 Non-Rebreather 09/12/19 00:00 15.0 09/11/19 20:00 97.9 106 20 118/71 (87) 92 09/11/19 20:00 15.0 09/11/19 20:00 Non-Rebreather 09/11/19 19:46 95 Non-Rebreather 15.0 100 09/11/19 19:12 100 Intake and Output 09/11/19 09/12/19 19:00 07:00 Intake Total 820 ml Output Total 1400 ml 600 ml Balance -1400 ml 220 ml Intake Oral 600 ml IV Total 220 ml Output Urine Total 1400 ml 600 ml # Bowel Movements 1 Current Medications Medications (Trade) Dose Ordered Sig/Akash Route PRN Reason Start Time Stop Time Status Last Admin Dose Admin Acetaminophen (Tylenol) 650 mg Q4H PRN ORAL Mild Pain/Temp > 100.5 08/28/19 07:00 09/22/19 10:59 09/07/19 04:09 Diphenhydramine HCl (Benadryl) 25 mg Q6H PRN ORAL Itching 09/06/19 14:15 10/06/19 14:14 09/12/19 14:29 Furosemide (Lasix) 40 mg DAILY IV 09/06/19 09:00 10/06/19 08:59 09/12/19 08:15 Guaifenesin/ Dextromethorphan (Robitussin DM Syrup) 5 ml Q4H PRN ORAL For Cough 08/28/19 06:15 09/26/19 06:14 Heparin Sodium (Porcine) (Heparin 5000 units/ml) 5,000 units EVERY 12 HOURS SUBQ 08/29/19 09:30 09/28/19 09:29 09/12/19 08:19 Methylprednisolone Sodium Succinate (Solu-MEDROL) 40 mg DAILY IVP 09/06/19 09:00 10/06/19 08:59 09/12/19 08:15 Multivitamins (Multivitamins) 1 tab DAILY ORAL 08/28/19 09:00 09/22/19 08:59 09/12/19 08:17 Nicotine (Nicoderm) 1 patch Q24H TDERMAL 08/28/19 16:00 09/23/19 15:59 09/12/19 16:31 Ondansetron HCl (Zofran) 4 mg Q6H PRN IVP Nausea & Vomiting 08/28/19 09:30 09/22/19 03:29 Pantoprazole (Protonix) 40 mg DAILY ORAL 08/28/19 09:00 09/22/19 08:59 09/12/19 08:17 Spironolactone (Aldactone) 25 mg DAILY ORAL 08/28/19 09:00 09/24/19 08:59 09/12/19 08:17 Thiamine HCl (Vitamin B1) 100 mg DAILY ORAL 08/28/19 09:00 09/22/19 08:59 09/12/19 08:17 Vancomycin HCl (Vanco rx to dose) 1 ea DAILY PRN MISC Per rx protocol 09/11/19 11:00 10/11/19 10:59 Vancomycin HCl 500 mg/Dextrose 110 ml @ 110 mls/hr Q8H IVPB 09/11/19 20:00 09/16/19 19:59 09/12/19 12:14 Ar Cook MD Sep 12, 2019 18:34
--- NOTE | 2019-09-12 19:10 | NUR ---
HAND-OFF: Report given to Zuri Tomas.
--- NOTE | 2019-09-12 19:11 | NUR ---
NURSE NOTES: Received pt from Corrine NAJERA., pt is awake and resting on the bed, AO x4 ,pt is on non-breather mask 100% and O2sat is at 99%. pt states no pain at this moment. pt seems comfortable. Left FA 22 G IV site is intact, clean, and patent. bed at the lowest position, alarmed, and locked. call light within reach. will continue to monitor pt with plan of care.
[2019-09-12] MEDS: Vancomycin 1gm/D5W 275ml IVPB SCH ×2 (20:32)
[2019-09-13] VITALS: BP 110/67
[2019-09-13] MEDS: Vancomycin 1gm/D5W 275ml IVPB SCH ×2 (03:29)
[2019-09-13 04:00] VITALS: BP 110/66
--- NOTE | 2019-09-13 07:15 | NUR ---
HAND-OFF: Report given to Dave NAJERA. pt is in stable condition.
--- NOTE | 2019-09-13 07:16 | NUR ---
NURSE NOTES: Late entry; PT and report received from REINALDO Keating; PT A/O x 4 during morning rounds; abdomen of PT is distended, round, umbilical hernia noted; ST on cafeteria monitor; received PT on nonrebreather saturating at 90%; no S/S of respiratory distress noted; has orders for PRN bipap; last reported BM 09/11/19; PT received with patent intact L-forearm 18g; reported PT not able tolerate going to diagnostic testing; PT on cardiac diet; urinal at bedside; PT asked for PRN benedryl during morning rounds, advised PT it will be provided. Will continue to monitor PT.
[2019-09-13 07:40] LABS: ALANINE AMINOTRANSFERASE 65 U/L (12-78); ALBUMIN 1.6 G/DL (3.4-5.0); ALBUMIN/GLOBULIN RATIO 0.4 (1.0-2.7); ALKALINE PHOSPHATASE 232 U/L (46-116); ANION GAP 2 mmol/L (5-15); ASPARTATE AMINO TRANSFERASE 122 U/L (15-37); BLOOD UREA NITROGEN 17 mg/dL (7-18); CALCIUM 8.3 MG/DL (8.5-10.1); CARBON DIOXIDE 34 MMOL/L (21-32); CHLORIDE 97 MMOL/L (98-107); CREATININE 0.9 MG/DL (0.55-1.30); POTASSIUM 3.7 MMOL/L (3.5-5.1); SODIUM 133 MMOL/L (136-145)
[2019-09-13 07:41] LABS: BILIRUBIN,DIRECT 2.5 MG/DL (0.0-0.3)
[2019-09-13 08:00] VITALS: BP 119/61
--- NOTE | 2019-09-13 08:10 | Pulmonology Progress Note ---
Assessment/Plan Assessment/Plan Impression - MRSA Pneumonia - Persistent leucocytosis - Hypoxic respiratory Failure - CHFpEF - Atrial Fibrillation - Cirrhosis, h/o ETOH Use, ascites s/p Paracentesis - Homeless - Enterobacter UTI s/p rx - Thrombocytopenia PLAN monitor imaging may need further diuresis may need CT chest recheck CXR for now impression, plan, and exam edited and reviewed in detail care discussed with RN Subjective Allergies: Coded Allergies: PENICILLINS (Verified Allergy, Intermediate, Rash, 09/01/19) Patient stated at this time Subjective care noted imaging reviewed Objective Last 24 Hour Vital Signs Date Time Temp Pulse Resp B/P (MAP) Pulse Ox O2 Delivery O2 Flow Rate FiO2 09/13/19 04:00 15.0 100 09/13/19 04:00 Non-Rebreather 15.0 09/13/19 04:00 97.7 98 20 110/66 (81) 98 09/13/19 03:57 101 09/13/19 00:00 Non-Rebreather 15.0 09/13/19 00:00 97.5 103 20 110/67 (81) 98 09/12/19 23:24 109 09/12/19 21:18 99 Non-Rebreather 15.0 100 09/12/19 20:00 Non-Rebreather 15.0 09/12/19 20:00 15.0 100 09/12/19 20:00 97.6 102 20 89/52 (64) 98 09/12/19 19:27 106 09/12/19 16:00 98.5 111 19 110/63 (79) 96 09/12/19 16:00 109 09/12/19 16:00 Non-Rebreather 15.0 09/12/19 16:00 15.0 100 09/12/19 12:00 15.0 100 09/12/19 12:00 110 09/12/19 12:00 97.6 102 18 120/73 (89) 95 09/12/19 12:00 Non-Rebreather 15.0 09/12/19 08:55 93 Non-Rebreather 15.0 100 Intake and Output 09/12/19 09/13/19 19:00 07:00 Intake Total 1080 ml 950.000 ml Output Total 1475 ml 500 ml Balance -395 ml 450.000 ml Intake Oral 1080 ml 400 ml IV Total 550.000 ml Output Urine Total 1475 ml 500 ml # Voids 5 Objective WDWN NAD clear breath sounds bilaterally without rhonchi or wheeze [id number] without MRG NABS nontender no HSM some distention no CC some edema nonfocal Laboratory Tests 09/12/19 19:00: Vancomycin Level Trough 8.7 09/13/19 05:15: Sodium Level 133L, Potassium Level 3.7, Chloride Level 97L, Carbon Dioxide Level 34H, Anion Gap 2L, Blood Urea Nitrogen 17, Creatinine 0.9, Estimat Glomerular Filtration Rate > 60, Glucose Level 82, Calcium Level 8.3L, Magnesium Level 1.5L, Total Bilirubin 3.0H, Direct Bilirubin 2.5H, Aspartate Amino Transf (AST/SGOT) 122H, Alanine Aminotransferase (ALT/SGPT) 65, Alkaline Phosphatase 232H, Total Protein 5.9L, Albumin 1.6L, Globulin 4.3, Albumin/ Globulin Ratio 0.4L Current Medications Medications (Trade) Dose Ordered Sig/Akash Route PRN Reason Start Time Stop Time Status Last Admin Dose Admin Acetaminophen (Tylenol) 650 mg Q4H PRN ORAL Mild Pain/Temp > 100.5 08/28/19 07:00 09/22/19 10:59 09/07/19 04:09 Diphenhydramine HCl (Benadryl) 25 mg Q6H PRN ORAL Itching 09/06/19 14:15 10/06/19 14:14 09/12/19 23:34 Furosemide (Lasix) 40 mg DAILY IV 09/06/19 09:00 10/06/19 08:59 09/12/19 08:15 Guaifenesin/ Dextromethorphan (Robitussin DM Syrup) 5 ml Q4H PRN ORAL For Cough 08/28/19 06:15 09/26/19 06:14 Heparin Sodium (Porcine) (Heparin 5000 units/ml) 5,000 units EVERY 12 HOURS SUBQ 08/29/19 09:30 09/28/19 09:29 09/12/19 20:34 Methylprednisolone Sodium Succinate (Solu-MEDROL) 40 mg DAILY IVP 09/06/19 09:00 10/06/19 08:59 09/12/19 08:15 Multivitamins (Multivitamins) 1 tab DAILY ORAL 08/28/19 09:00 09/22/19 08:59 09/12/19 08:17 Nicotine (Nicoderm) 1 patch Q24H TDERMAL 08/28/19 16:00 09/23/19 15:59 09/12/19 16:31 Ondansetron HCl (Zofran) 4 mg Q6H PRN IVP Nausea & Vomiting 08/28/19 09:30 09/22/19 03:29 Pantoprazole (Protonix) 40 mg DAILY ORAL 08/28/19 09:00 09/22/19 08:59 09/12/19 08:17 Spironolactone (Aldactone) 25 mg DAILY ORAL 08/28/19 09:00 09/24/19 08:59 09/12/19 08:17 Thiamine HCl (Vitamin B1) 100 mg DAILY ORAL 08/28/19 09:00 09/22/19 08:59 09/12/19 08:17 Vancomycin HCl (Vanco rx to dose) 1 ea DAILY PRN MISC Per rx protocol 09/11/19 11:00 10/11/19 10:59 Vancomycin HCl 1 gm/Dextrose 275 ml @ 183.708 mls/hr Q8HR@0400,1200,2000 IVPB 09/12/19 20:00 09/17/19 19:59 09/13/19 03:29 Simon Lopez MD Sep 13, 2019 08:10
[2019-09-13] MEDS: Solu-MEDROL 40mg Inj IVP SCH (08:31)
[2019-09-13] MEDS: Spironolactone 25mg tab ORAL SCH (08:32)
[2019-09-13] MEDS: Thiamine 100mg tab ORAL SCH (08:32)
[2019-09-13] MEDS: Heparin 5000 units/ml inj SUBQ SCH ×2 (08:42→21:31)
--- NOTE | 2019-09-13 10:23 | General Progress Note ---
Assessment/Plan Problem List: (1) AMS (altered mental status) ICD Codes: R41.82 - Altered mental status, unspecified SNOMED: 639745386 Status: stable Assessment/Plan: iv abx bipap follow up cxr diuresis critical and guarded ?ltach Subjective ROS Limited/Unobtainable: No Constitutional: Reports: malaise, weakness HEENT: Reports: no symptoms Cardiovascular: Reports: no symptoms Respiratory: Reports: shortness of breath, sputum Gastrointestinal/Abdominal: Reports: no symptoms Genitourinary: Reports: no symptoms Neurologic/Psychiatric: Reports: no symptoms Endocrine: Reports: no symptoms Hematologic/Lymphatic: Reports: no symptoms Allergies: Coded Allergies: PENICILLINS (Verified Allergy, Intermediate, Rash, 09/01/19) Patient stated at this time All Systems: reviewed and negative except above Subjective on nrbm. no complaints. refusing bipap. sats ok on nrb Objective Last 24 Hour Vital Signs Date Time Temp Pulse Resp B/P (MAP) Pulse Ox O2 Delivery O2 Flow Rate FiO2 09/13/19 08:00 98.1 115 24 119/61 (80) 92 09/13/19 04:00 15.0 100 09/13/19 04:00 Non-Rebreather 15.0 09/13/19 04:00 97.7 98 20 110/66 (81) 98 09/13/19 03:57 101 09/13/19 00:00 Non-Rebreather 15.0 09/13/19 00:00 97.5 103 20 110/67 (81) 98 09/12/19 23:24 109 09/12/19 21:18 99 Non-Rebreather 15.0 100 09/12/19 20:00 Non-Rebreather 15.0 09/12/19 20:00 15.0 100 09/12/19 20:00 97.6 102 20 89/52 (64) 98 09/12/19 19:27 106 09/12/19 16:00 98.5 111 19 110/63 (79) 96 09/12/19 16:00 109 09/12/19 16:00 Non-Rebreather 15.0 09/12/19 16:00 15.0 100 09/12/19 12:00 15.0 100 09/12/19 12:00 110 09/12/19 12:00 97.6 102 18 120/73 (89) 95 09/12/19 12:00 Non-Rebreather 15.0 Intake and Output 09/12/19 09/13/19 19:00 07:00 Intake Total 1080 ml 950.000 ml Output Total 1475 ml 500 ml Balance -395 ml 450.000 ml Intake Oral 1080 ml 400 ml IV Total 550.000 ml Output Urine Total 1475 ml 500 ml # Voids 5 Laboratory Tests 09/12/19 19:00: Vancomycin Level Trough 8.7 09/13/19 05:15: Sodium Level 133L, Potassium Level 3.7, Chloride Level 97L, Carbon Dioxide Level 34H, Anion Gap 2L, Blood Urea Nitrogen 17, Creatinine 0.9, Estimat Glomerular Filtration Rate > 60, Glucose Level 82, Calcium Level 8.3L, Magnesium Level 1.5L, Total Bilirubin 3.0H, Direct Bilirubin 2.5H, Aspartate Amino Transf (AST/SGOT) 122H, Alanine Aminotransferase (ALT/SGPT) 65, Alkaline Phosphatase 232H, Total Protein 5.9L, Albumin 1.6L, Globulin 4.3, Albumin/ Globulin Ratio 0.4L Height (Feet): 5 Height (Inches): 8.00 Weight (Pounds): 145 Objective General Appearance: WD/WN, lethargic. on bipap. Neck: supple Cardiovascular: regular rhythm Respiratory/Chest: lungs td rhonchi Abdomen: normal bowel sounds, non tender. small reducible periumbilical hernia Edema: no edema noted Arm (L), no edema noted Arm (R), no edema noted Leg (L), no edema noted Leg (R), no edema noted Pedal (L), no edema noted Pedal (R), no edema noted Generalized Henry Leavitt MD Sep 13, 2019 10:23
--- NOTE | 2019-09-13 10:54 | Infectious Diseases Prog Note ---
Assessment/Plan Assessment/Plan antibiotics : vancomycin iv A 1. MRSA pneumonia 2. respiratory failure 3. enterobacter UTI s/p rx 4. cirrhosis 5. ascites s/p paracentesis no SBP 6. thrombocytopenia 7. leucocytosis likely secondary to steroids P 1. continue iv vancomycin 2. will follow up cultures Subjective Constitutional: Denies: fever, chills Respiratory: Reports: shortness of breath - decreased, productive cough - decreased Gastrointestinal/Abdominal: Denies: nausea, vomiting, diarrhea Musculoskeletal: Reports: pain Allergies: Coded Allergies: PENICILLINS (Verified Allergy, Intermediate, Rash, 09/01/19) Patient stated at this time Objective Vital Signs Last 24 Hour Vital Signs Date Time Temp Pulse Resp B/P (MAP) Pulse Ox O2 Delivery O2 Flow Rate FiO2 09/13/19 08:00 98.1 115 24 119/61 (80) 92 09/13/19 08:00 Non-Rebreather 15.0 09/13/19 08:00 15.0 09/13/19 08:00 118 09/13/19 04:00 15.0 100 09/13/19 04:00 Non-Rebreather 15.0 09/13/19 04:00 97.7 98 20 110/66 (81) 98 09/13/19 03:57 101 09/13/19 00:00 Non-Rebreather 15.0 09/13/19 00:00 97.5 103 20 110/67 (81) 98 09/12/19 23:24 109 09/12/19 21:18 99 Non-Rebreather 15.0 100 09/12/19 20:00 Non-Rebreather 15.0 09/12/19 20:00 15.0 100 09/12/19 20:00 97.6 102 20 89/52 (64) 98 09/12/19 19:27 106 09/12/19 16:00 98.5 111 19 110/63 (79) 96 09/12/19 16:00 109 09/12/19 16:00 Non-Rebreather 15.0 09/12/19 16:00 15.0 100 09/12/19 12:00 15.0 100 09/12/19 12:00 110 09/12/19 12:00 97.6 102 18 120/73 (89) 95 09/12/19 12:00 Non-Rebreather 15.0 Height (Feet): 5 Height (Inches): 8.00 Weight (Pounds): 145 Respiratory/Chest: lungs clear Cardiovascular: normal rate, regular rhythm, no gallop/murmur Abdomen: soft, non tender Extremities: no edema Laboratory Tests Test 09/12/19 19:00 09/13/19 05:15 Vancomycin Level Trough 8.7 ug/mL (5.0-12.0) Sodium Level 133 MMOL/L (136-145) L Potassium Level 3.7 MMOL/L (3.5-5.1) Chloride Level 97 MMOL/L (98-107) L Carbon Dioxide Level 34 MMOL/L (21-32) H Anion Gap 2 mmol/L (5-15) L Blood Urea Nitrogen 17 mg/dL (7-18) Creatinine 0.9 MG/DL (0.55-1.30) Estimat Glomerular Filtration Rate > 60 mL/min (>60) Glucose Level 82 MG/DL (74-106) Calcium Level 8.3 MG/DL (8.5-10.1) L Magnesium Level 1.5 MG/DL (1.8-2.4) L Total Bilirubin 3.0 MG/DL (0.2-1.0) H Direct Bilirubin 2.5 MG/DL (0.0-0.3) H Aspartate Amino Transf (AST/SGOT) 122 U/L (15-37) H Alanine Aminotransferase (ALT/SGPT) 65 U/L (12-78) Alkaline Phosphatase 232 U/L (46-116) H Total Protein 5.9 G/DL (6.4-8.2) L Albumin 1.6 G/DL (3.4-5.0) L Globulin 4.3 g/dL Albumin/Globulin Ratio 0.4 (1.0-2.7) L Current Medications Medications (Trade) Dose Ordered Sig/Akash Route PRN Reason Start Time Stop Time Status Last Admin Dose Admin Acetaminophen (Tylenol) 650 mg Q4H PRN ORAL Mild Pain/Temp > 100.5 08/28/19 07:00 09/22/19 10:59 09/07/19 04:09 Diphenhydramine HCl (Benadryl) 25 mg Q6H PRN ORAL Itching 09/06/19 14:15 10/06/19 14:14 09/13/19 08:32 Furosemide (Lasix) 40 mg DAILY IV 09/06/19 09:00 10/06/19 08:59 09/13/19 08:31 Guaifenesin/ Dextromethorphan (Robitussin DM Syrup) 5 ml Q4H PRN ORAL For Cough 08/28/19 06:15 09/26/19 06:14 Heparin Sodium (Porcine) (Heparin 5000 units/ml) 5,000 units EVERY 12 HOURS SUBQ 08/29/19 09:30 09/28/19 09:29 09/13/19 08:42 Magnesium Sulfate 100 ml @ 100 mls/hr Q1H IVPB 09/13/19 12:00 09/13/19 13:59 Methylprednisolone Sodium Succinate (Solu-MEDROL) 40 mg DAILY IVP 09/06/19 09:00 10/06/19 08:59 09/13/19 08:31 Multivitamins (Multivitamins) 1 tab DAILY ORAL 08/28/19 09:00 09/22/19 08:59 09/13/19 08:31 Nicotine (Nicoderm) 1 patch Q24H TDERMAL 08/28/19 16:00 09/23/19 15:59 09/12/19 16:31 Ondansetron HCl (Zofran) 4 mg Q6H PRN IVP Nausea & Vomiting 08/28/19 09:30 09/22/19 03:29 Pantoprazole (Protonix) 40 mg DAILY ORAL 08/28/19 09:00 09/22/19 08:59 09/13/19 08:32 Spironolactone (Aldactone) 25 mg DAILY ORAL 08/28/19 09:00 09/24/19 08:59 09/13/19 08:32 Thiamine HCl (Vitamin B1) 100 mg DAILY ORAL 08/28/19 09:00 09/22/19 08:59 09/13/19 08:32 Vancomycin HCl (Vanco rx to dose) 1 ea DAILY PRN MISC Per rx protocol 09/11/19 11:00 10/11/19 10:59 Vancomycin HCl 1 gm/Dextrose 275 ml @ 183.708 mls/hr Q8HR@0400,1200,2000 IVPB 09/12/19 20:00 09/17/19 19:59 09/13/19 03:29 Morena Erazo MD Sep 13, 2019 10:54
[2019-09-13 12:00] VITALS: BP 106/59
--- NOTE | 2019-09-13 12:48 | NUR ---
CASE MANAGEMENT:REVIEW 09/13/19 [facility] D/T PCP. ENTEROBACTER UTI MRSA PNA. RESPIRATORY FAILURE 97.5 115 24 119/61 90% ON 15L NON REBREATHER CO2+34 MAG-1.5 IS: IV SOLUMEDROL QD IV VANCOMYCIN Q8HRS IV MAG SULFATE Q1HRS X2 IV LASIX QD HEPARIN SQ Q12 ALDACTONE PO QD : STEP DOWN UNIT PLAN: REQUESTED PATIENT BE TRANSFERRED TO [facility]...FAXED CLINICALS TO [facility] FOR [facility]OT[facility] AT [facility]
--- NOTE | 2019-09-13 12:56 | NUR ---
DISCHARGE PLANNING DISCHARGE PLAN DISCUSSED WITH DR [facility] FAXED TO [facility]: [phone]
--- NOTE | 2019-09-13 13:24 | NUR ---
NURSE NOTES: PT on nonrebreather, no S/S of respiratory distress, sleeping, saturating at 93%; will continue to monitor PT.
[2019-09-13 16:00] VITALS: BP 109/61
[2019-09-13] MEDS ORDERED: Tubing IV Secondary IV ONE (16:01)
[2019-09-13] MEDS ORDERED: NS 275ml ONE (16:01)
--- NOTE | 2019-09-13 18:24 | NUR ---
NURSE NOTES: Asked PT if he needs anything, if he would like his linens changed, PT refused.
--- NOTE | 2019-09-13 19:27 | NUR ---
HAND-OFF: Report and PT given to REINALDO Alvarado.
--- NOTE | 2019-09-13 19:30 | NUR ---
NURSE NOTES: Received patient from REINALDO Acosta. patient is observed sleeping in bed, no s/sx of pain noted at this time. patient is on nonrebreather mask, 15 L/min, FiO2: 100%. tolerating well, saturating at 97%, no s/sx of respiratory distress noted at this time. compliance monitor shows sinus tachycardia with current heart rate of 106. no s/sx of acute cardiac distress noted at this time. urinal at bedside. LFA 18g IV site noted, patent and intact, asymptomatic. bed in lowest position and locked, siderails up X3, call light within reach. will continue to monitor.
[2019-09-13 20:00] VITALS: BP 114/64
[2019-09-13] MEDS: Vancomycin 750mg/D5W 275ml IVPB SCH ×2 (21:28)
[2019-09-14] VITALS: BP 110/68
[2019-09-14 04:00] VITALS: BP 105/61
[2019-09-14] MEDS: Vancomycin 750mg/D5W 275ml IVPB SCH ×4 (05:15→14:11)
--- NOTE | 2019-09-14 07:25 | NUR ---
NURSE NOTES: Received report from REINALDO Alvarado. Patient is resting in bed, in stable condition. No s/sx of SOB, breathing is even and unlabored. On non-rebreather mask 15 L FiO2 100% SpO2 goal of 90-92%. Denies any presence of pain or discomfort at this time. Bed is in lowest position, brakes engaged. Call light is kept within easy reach. Will continue to monitor patient.
[2019-09-14 08:00] VITALS: BP 102/66
--- NOTE | 2019-09-14 08:31 | NUR ---
HAND-OFF: Report given to Herman Cui RN. patient is in stable condition.
--- NOTE | 2019-09-14 08:33 | General Progress Note ---
Assessment/Plan Problem List: (1) AMS (altered mental status) ICD Codes: R41.82 - Altered mental status, unspecified SNOMED: 632004258 Status: stable Assessment/Plan: iv abx bipap follow up cxr diuresis critical and guarded ?ltach Subjective ROS Limited/Unobtainable: No Constitutional: Reports: malaise, weakness HEENT: Reports: no symptoms Cardiovascular: Reports: no symptoms Respiratory: Reports: cough, shortness of breath Gastrointestinal/Abdominal: Reports: no symptoms Genitourinary: Reports: no symptoms Neurologic/Psychiatric: Reports: no symptoms Endocrine: Reports: no symptoms Hematologic/Lymphatic: Reports: no symptoms Allergies: Coded Allergies: PENICILLINS (Verified Allergy, Intermediate, Rash, 09/01/19) Patient stated at this time All Systems: reviewed and negative except above Subjective on nrbm. no complaints. refusing bipap. sats ok on nrb Objective Last 24 Hour Vital Signs Date Time Temp Pulse Resp B/P (MAP) Pulse Ox O2 Delivery O2 Flow Rate FiO2 09/14/19 08:00 97.7 106 22 102/66 (78) 90 09/14/19 04:00 98.0 108 22 105/61 (76) 90 09/14/19 04:00 101 09/14/19 04:00 15.0 09/14/19 04:00 Non-Rebreather 15.0 09/14/19 00:00 103 09/14/19 00:00 15.0 09/14/19 00:00 97.8 103 24 110/68 (82) 93 09/14/19 00:00 Non-Rebreather 15.0 09/13/19 20:00 15.0 09/13/19 20:00 Non-Rebreather 15.0 09/13/19 20:00 97.5 114 24 114/64 (81) 90 09/13/19 20:00 101 09/13/19 19:06 100 Non-Rebreather 15.0 100 09/13/19 16:00 100 09/13/19 16:00 15.0 09/13/19 16:00 Non-Rebreather 15.0 09/13/19 16:00 98.6 106 23 109/61 (77) 95 09/13/19 12:00 15.0 09/13/19 12:00 Non-Rebreather 15.0 09/13/19 12:00 98.1 113 24 106/59 (75) 90 09/13/19 12:00 111 Intake and Output 09/13/19 09/14/19 19:00 07:00 Intake Total 520 ml 675.000 ml Output Total 1800 ml 600 ml Balance -1280 ml 75.000 ml Intake Oral 320 ml 400 ml IV Total 200 ml 275.000 ml Output Urine Total 1800 ml 600 ml Laboratory Tests 09/13/19 11:10: Vancomycin Level Trough 22.2H Height (Feet): 5 Height (Inches): 8.00 Weight (Pounds): 145 Objective General Appearance: WD/WN, lethargic. on bipap. Neck: supple Cardiovascular: regular rhythm Respiratory/Chest: lungs td rhonchi Abdomen: normal bowel sounds, non tender. small reducible periumbilical hernia Edema: no edema noted Arm (L), no edema noted Arm (R), no edema noted Leg (L), no edema noted Leg (R), no edema noted Pedal (L), no edema noted Pedal (R), no edema noted Generalized Henry Leavitt MD Sep 14, 2019 08:33
[2019-09-14] MEDS: Thiamine 100mg tab ORAL SCH (09:00)
[2019-09-14] MEDS: Spironolactone 25mg tab ORAL SCH (09:00)
[2019-09-14] MEDS: Solu-MEDROL 40mg Inj IVP SCH (09:00)
[2019-09-14] MEDS: Heparin 5000 units/ml inj SUBQ SCH ×2 (09:01→21:11)
--- NOTE | 2019-09-14 09:14 | Pulmonology Progress Note ---
Assessment/Plan Assessment/Plan Impression - MRSA Pneumonia - Persistent leucocytosis - Hypoxic respiratory Failure - CHFpEF - Atrial Fibrillation - Cirrhosis, h/o ETOH Use, ascites s/p Paracentesis - Homeless - Enterobacter UTI s/p rx - Thrombocytopenia PLAN monitor imaging keep negative steroid ? taper await CT chest on high flow oxygen at risk for intubation impression, plan, and exam edited and reviewed in detail care discussed with RN Subjective Allergies: Coded Allergies: PENICILLINS (Verified Allergy, Intermediate, Rash, 09/01/19) Patient stated at this time Subjective care noted imaging reviewed still on 100% Objective Last 24 Hour Vital Signs Date Time Temp Pulse Resp B/P (MAP) Pulse Ox O2 Delivery O2 Flow Rate FiO2 09/14/19 08:00 97.7 106 22 102/66 (78) 90 09/14/19 04:00 98.0 108 22 105/61 (76) 90 09/14/19 04:00 101 09/14/19 04:00 15.0 09/14/19 04:00 Non-Rebreather 15.0 09/14/19 00:00 103 09/14/19 00:00 15.0 09/14/19 00:00 97.8 103 24 110/68 (82) 93 09/14/19 00:00 Non-Rebreather 15.0 09/13/19 20:00 15.0 09/13/19 20:00 Non-Rebreather 15.0 09/13/19 20:00 97.5 114 24 114/64 (81) 90 09/13/19 20:00 101 09/13/19 19:06 100 Non-Rebreather 15.0 100 09/13/19 16:00 100 09/13/19 16:00 15.0 09/13/19 16:00 Non-Rebreather 15.0 09/13/19 16:00 98.6 106 23 109/61 (77) 95 09/13/19 12:00 15.0 09/13/19 12:00 Non-Rebreather 15.0 09/13/19 12:00 98.1 113 24 106/59 (75) 90 09/13/19 12:00 111 Intake and Output 09/13/19 09/14/19 19:00 07:00 Intake Total 520 ml 675.000 ml Output Total 1800 ml 600 ml Balance -1280 ml 75.000 ml Intake Oral 320 ml 400 ml IV Total 200 ml 275.000 ml Output Urine Total 1800 ml 600 ml Objective WDWN NAD clear breath sounds bilaterally without rhonchi or wheeze [id number] without MRG NABS nontender no HSM some distention no CC some edema nonfocal Laboratory Tests 09/13/19 11:10: Vancomycin Level Trough 22.2H Current Medications Medications (Trade) Dose Ordered Sig/Akash Route PRN Reason Start Time Stop Time Status Last Admin Dose Admin Acetaminophen (Tylenol) 650 mg Q4H PRN ORAL Mild Pain/Temp > 100.5 08/28/19 07:00 09/22/19 10:59 09/07/19 04:09 Diphenhydramine HCl (Benadryl) 25 mg Q6H PRN ORAL Itching 09/06/19 14:15 10/06/19 14:14 09/14/19 05:15 Furosemide (Lasix) 40 mg DAILY IV 09/06/19 09:00 10/06/19 08:59 09/14/19 09:00 Guaifenesin/ Dextromethorphan (Robitussin DM Syrup) 5 ml Q4H PRN ORAL For Cough 08/28/19 06:15 09/26/19 06:14 Heparin Sodium (Porcine) (Heparin 5000 units/ml) 5,000 units EVERY 12 HOURS SUBQ 08/29/19 09:30 09/28/19 09:29 09/14/19 09:01 Methylprednisolone Sodium Succinate (Solu-MEDROL) 40 mg DAILY IVP 09/06/19 09:00 10/06/19 08:59 09/14/19 09:00 Multivitamins (Multivitamins) 1 tab DAILY ORAL 08/28/19 09:00 09/22/19 08:59 09/14/19 09:00 Nicotine (Nicoderm) 1 patch Q24H TDERMAL 08/28/19 16:00 09/23/19 15:59 09/13/19 18:35 Ondansetron HCl (Zofran) 4 mg Q6H PRN IVP Nausea & Vomiting 08/28/19 09:30 09/22/19 03:29 Pantoprazole (Protonix) 40 mg DAILY ORAL 08/28/19 09:00 09/22/19 08:59 09/14/19 09:00 Spironolactone (Aldactone) 25 mg DAILY ORAL 08/28/19 09:00 09/24/19 08:59 09/14/19 09:00 Thiamine HCl (Vitamin B1) 100 mg DAILY ORAL 08/28/19 09:00 09/22/19 08:59 09/14/19 09:00 Vancomycin HCl (Vanco rx to dose) 1 ea DAILY PRN MISC Per rx protocol 09/11/19 11:00 10/11/19 10:59 Vancomycin HCl 750 mg/Dextrose 275 ml @ 183.333 mls/hr Q8HR IVPB 09/13/19 22:00 09/18/19 21:59 09/14/19 05:15 Simon Lopez MD Sep 14, 2019 09:14
--- NOTE | 2019-09-14 10:48 | Infectious Diseases Prog Note ---
Assessment/Plan Assessment/Plan antibiotics : vancomycin iv A 1. MRSA pneumonia 2. respiratory failure 3. enterobacter UTI s/p rx 4. cirrhosis 5. ascites s/p paracentesis no SBP 6. thrombocytopenia 7. leucocytosis likely secondary to steroids P 1. continue iv vancomycin 6 more days 2. will follow up cultures Subjective Constitutional: Denies: fever, chills Respiratory: Reports: shortness of breath, dry cough Gastrointestinal/Abdominal: Denies: nausea, vomiting, diarrhea Musculoskeletal: Reports: pain Allergies: Coded Allergies: PENICILLINS (Verified Allergy, Intermediate, Rash, 09/01/19) Patient stated at this time Objective Vital Signs Last 24 Hour Vital Signs Date Time Temp Pulse Resp B/P (MAP) Pulse Ox O2 Delivery O2 Flow Rate FiO2 09/14/19 08:00 15.0 09/14/19 08:00 101 09/14/19 08:00 Non-Rebreather 15.0 09/14/19 08:00 97.7 106 22 102/66 (78) 90 09/14/19 04:00 98.0 108 22 105/61 (76) 90 09/14/19 04:00 101 09/14/19 04:00 15.0 09/14/19 04:00 Non-Rebreather 15.0 09/14/19 00:00 103 09/14/19 00:00 15.0 09/14/19 00:00 97.8 103 24 110/68 (82) 93 09/14/19 00:00 Non-Rebreather 15.0 09/13/19 20:00 15.0 09/13/19 20:00 Non-Rebreather 15.0 09/13/19 20:00 97.5 114 24 114/64 (81) 90 09/13/19 20:00 101 09/13/19 19:06 100 Non-Rebreather 15.0 100 09/13/19 16:00 100 09/13/19 16:00 15.0 09/13/19 16:00 Non-Rebreather 15.0 09/13/19 16:00 98.6 106 23 109/61 (77) 95 09/13/19 12:00 15.0 09/13/19 12:00 Non-Rebreather 15.0 09/13/19 12:00 98.1 113 24 106/59 (75) 90 09/13/19 12:00 111 Height (Feet): 5 Height (Inches): 8.00 Weight (Pounds): 150 Respiratory/Chest: lungs clear Cardiovascular: normal rate, regular rhythm, no gallop/murmur Abdomen: soft, non tender Extremities: no edema Laboratory Tests Test 09/13/19 11:10 Vancomycin Level Trough 22.2 ug/mL (5.0-12.0) H Current Medications Medications (Trade) Dose Ordered Sig/Akash Route PRN Reason Start Time Stop Time Status Last Admin Dose Admin Acetaminophen (Tylenol) 650 mg Q4H PRN ORAL Mild Pain/Temp > 100.5 08/28/19 07:00 09/22/19 10:59 09/07/19 04:09 Diphenhydramine HCl (Benadryl) 25 mg Q6H PRN ORAL Itching 09/06/19 14:15 10/06/19 14:14 09/14/19 05:15 Furosemide (Lasix) 40 mg DAILY IV 09/06/19 09:00 10/06/19 08:59 09/14/19 09:00 Guaifenesin/ Dextromethorphan (Robitussin DM Syrup) 5 ml Q4H PRN ORAL For Cough 08/28/19 06:15 09/26/19 06:14 Heparin Sodium (Porcine) (Heparin 5000 units/ml) 5,000 units EVERY 12 HOURS SUBQ 08/29/19 09:30 09/28/19 09:29 09/14/19 09:01 Methylprednisolone Sodium Succinate (Solu-MEDROL) 40 mg DAILY IVP 09/06/19 09:00 10/06/19 08:59 09/14/19 09:00 Multivitamins (Multivitamins) 1 tab DAILY ORAL 08/28/19 09:00 09/22/19 08:59 09/14/19 09:00 Nicotine (Nicoderm) 1 patch Q24H TDERMAL 08/28/19 16:00 09/23/19 15:59 09/13/19 18:35 Ondansetron HCl (Zofran) 4 mg Q6H PRN IVP Nausea & Vomiting 08/28/19 09:30 09/22/19 03:29 Pantoprazole (Protonix) 40 mg DAILY ORAL 08/28/19 09:00 09/22/19 08:59 09/14/19 09:00 Spironolactone (Aldactone) 25 mg DAILY ORAL 08/28/19 09:00 09/24/19 08:59 09/14/19 09:00 Thiamine HCl (Vitamin B1) 100 mg DAILY ORAL 08/28/19 09:00 09/22/19 08:59 09/14/19 09:00 Vancomycin HCl (Vanco rx to dose) 1 ea DAILY PRN MISC Per rx protocol 09/11/19 11:00 10/11/19 10:59 Vancomycin HCl 750 mg/Dextrose 275 ml @ 183.333 mls/hr Q8HR IVPB 09/13/19 22:00 09/18/19 21:59 09/14/19 05:15 Morena Erazo MD Sep 14, 2019 10:48
[2019-09-14 11:01] VITALS: BP 117/65
--- NOTE | 2019-09-14 11:04 | NUR ---
*-* INSURANCE *-* ALL AVAILABLE CLINICALS AND REVIEWS HAVE BEEN FAXED TO: [facility] REESE: DEEPAK P- [phone] F- [phone]...........REVIEW/CLINICAL
--- NOTE | 2019-09-14 11:16 | NUR ---
RADIOLOGY DEPT., CHEST X-RAY DONE.-P.DYE
--- NOTE | 2019-09-14 12:19 | NUR ---
CASE MANAGEMENT:REVIEW 09/14/19 [facility] D/T PCP. ENTEROBACTER UTI MRSA PNA. RESPIRATORY FAILURE 97.9 110 22 117/65 90% ON 15L NON REBREATHER IS: IV SOLUMEDROL QD IV VANCOMYCIN Q8HRS IV LASIX QD HEPARIN SQ Q12 ALDACTONE PO QD : STEP DOWN UNIT PLAN: REQUESTED PATIENT BE TRANSFERRED TO [facility]...FAXED CLINICALS TO [facility] Chris FOR CHERRI SOTELO AT [facility]
--- NOTE | 2019-09-14 12:25 | NUR ---
DISCHARGE PLANNING PATIENT HAS BEEN REFERRED TO [facility]. CONFIRMED WITH MOOKIE THAT CLINCALS HAD BEEN RECEIVED PER MOOKIE, THIS DECK STEWARD NEEDS TO OBTAIN AUTHORIZATION FROM [facility] SM[facility]/CARLOS SPOKE WITH [facility] DECK STEWARD YESTERDAY. 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
--- NOTE | 2019-09-14 13:07 | NUR ---
NURSE NOTES: Patient taken to CT for STAT CTA of chest with contrast. Patient tolerated procedure and transportation. Will continue to monitor patient.
--- NOTE | 2019-09-14 13:36 | Diagnostic Imaging Report ---
ndication: Dyspnea Technique: IV administration nonionic contrast. Spiral acquisitions obtained from the lung bases to the lung apices. Multiplanar and 3-D reconstructions were generated. Total dose length product 677 mGycm. CTDIvol(s) 14, 56, 13 mGy. Dose reduction achieved using automated exposure control Comparison: none Findings: Pulmonary arterial opacification is somewhat suboptimal, and small peripheral emboli could be missed. In addition, there is some image degradation due to motion artifact which also precludes exclusion of small peripheral emboli. No gross large vessel pulmonary emboli are demonstrated. The left main pulmonary artery is ectatic, measuring up to 2.5 cm. No isolated right ventricular dilatation. There is generalized four-chamber cardiomegaly. No evidence of thoracic aortic aneurysm or dissection. Normal caliber and branching anatomy of the right neck vessels is noted. There is extensive pulmonary parenchymal disease. There is extensive groundglass opacity involving most of the upper lobes. There is extensive interstitial septal thickening involving the lower lobes, as well as considerable atelectasis and confluent opacity. There is of bronchiectasis, subpleural blebs, and bilateral peripheral honeycombing are also present. There are bilateral small pleural effusions. The extent of the pulmonary parenchymal disease at the lung bases is greater than that which was visualized on abdomen CT scan of 08/23/2019 There is considerable edema of the mediastinal and epicardial fat, but no definite pericardial effusion is demonstrated. No mediastinal or hilar mass or adenopathy. Grossly unremarkable esophagus. The visualized thyroid is unremarkable. No axillary or chest wall mass or adenopathy. There is mild height loss of the T8 vertebral body. It is slightly sclerotic, demonstrates considerable superior and inferior endplate irregularity. There is degenerative spondylosis elsewhere in the thoracic spine. Included upper abdominal anatomy demonstrates atrophic liver with surface nodularity. There is a TIPS shunt in place which is probably patent. There is hypertrophy of the hepatic arteries. Gallstones are noted. There is considerable ascites fluid present. What are probably embolic coils are seen in the region of the splenic capsule. Impression: Somewhat suboptimal pulmonary arterial opacification as well as limitation of exam by motion artifact. Small peripheral emboli not completely excludable. No gross large vessel central pulmonary emboli demonstrated. Mildly dilated left main pulmonary artery, suggestive of but not diagnostic for pulmonary arterial hypertension Cardiomegaly Evidence of anasarca, with diffuse body wall and mediastinal edema, small bilateral pleural effusions, ascites Extensive pulmonary parenchymal disease, as described, with groundglass opacity, interstitial septal thickening, bronchiectasis, subpleural blebs, and peripheral honeycombing. Given the finding of cardiomegaly and anasarca, findings most likely on the basis of pulmonary edema. Pneumonia is also a possibility. In addition, there is probably underlying component of chronic fibrotic change. T8 vertebral body loss of height. This may reflect age-indeterminate compression fracture deformity versus degenerative remodeling. Consider MRI for better characterization if clinically relevant Evidence of hepatic cirrhosis. Evidence of portal hypertension, with a TIPS shunt in place, and ascites. This is been previously described Cholelithiasis Perisplenic embolic coils. Degenerative spondylosis The CT scanner at [facility] is accredited by the [employer] and the scans are performed using protocols designed to limit radiation exposure to as low as reasonably achievable to attain images of sufficient resolution adequate for diagnostic evaluation.
--- NOTE | 2019-09-14 13:40 | Diagnostic Imaging Report ---
Indication: Dyspnea Technique: One view of the chest Comparison: 09/09/2019 Findings: Bilateral interstitial and airspace disease appears slightly worse than on the prior exam. There is probably developing pleural fluid bilaterally. The heart size is normal Impression: Worsening bilateral interstitial and airspace disease diffusely, over 5 days Suspect developing bilateral pleural effusions
--- NOTE | 2019-09-14 15:00 | NUR ---
NURSE NOTES: Informed Dr. oLpez that patient c/o SOB on non-rebreather 15L at 100%. Dr. Lopez acknowledged and ordered pt on BiPAP 15/8 FiO2 100% PRN for SOB. Order entered, noted, and carried out. Will continue to monitor patient.
[2019-09-14] MEDS ORDERED: Tubing IV Secondary IV ONE (15:50)
[2019-09-14] MEDS ORDERED: NS 275ml ONE (15:50)
[2019-09-14 16:00] VITALS: BP 99/53
--- NOTE | 2019-09-14 19:20 | NUR ---
HAND-OFF: Report given to REINALDO Rivera.
--- NOTE | 2019-09-14 19:30 | NUR ---
NURSE NOTES: Received Pt is resting on the bed and awake and alert. On non-rebreather mask with 15L O2 and SaO2 91% noted. Denied pain at this time. IV site intact and no sign of infiltration noted. On Tele monitor with ST and HR: 110's. Encouraged deep breathing. Placed fall precaution. Will continue to care plan.
[2019-09-14 20:00] VITALS: BP 100/61
[2019-09-15] VITALS (7 sets, daily range): BP systolic 98–133; BP diastolic 58–72
--- NOTE | 2019-09-15 07:06 | NUR ---
NURSE NOTES: Received report from REINALDO Rivera. Patient is resting in bed, in stable condition. On BiPAP 15/8 FiO2 100%, SpO2 95%. Observed no presence of pain or discomfort at this time. Bed is in lowest position, brakes engaged. Call light is kept within easy reach. Will continue to monitor patient.
--- NOTE | 2019-09-15 07:13 | NUR ---
HAND-OFF: Report given to REINALDO Abdi. Pt is resting on the bed and no sign of acute distress noted.
[2019-09-15] MEDS: Thiamine 100mg tab ORAL SCH (08:15)
[2019-09-15] MEDS: Spironolactone 25mg tab ORAL SCH (08:15)
[2019-09-15] MEDS: Solu-MEDROL 40mg Inj IVP SCH (08:15)
[2019-09-15] MEDS: Heparin 5000 units/ml inj SUBQ SCH ×2 (08:16→20:31)
[2019-09-15] MEDS: Vancomycin 750mg/D5W 275ml IVPB SCH ×4 (08:19→20:21)
--- NOTE | 2019-09-15 09:47 | NUR ---
NURSE NOTES: Dr. Lopez seen and examined patient at bedside. Dr. Lopez reviewed CTA Chest w/ contrast results. Dr. Lopez acknowledged and ordered Lasix 40 mg IV BID. Orders entered, noted, and carried out. Will continue to monitor patient.
--- NOTE | 2019-09-15 11:03 | General Progress Note ---
Assessment/Plan Problem List: (1) AMS (altered mental status) ICD Codes: R41.82 - Altered mental status, unspecified SNOMED: 055501039 Status: stable Assessment/Plan: iv abx bipap follow up cxr diuresis critical and guarded ?ltach Subjective ROS Limited/Unobtainable: No Constitutional: Reports: malaise, weakness HEENT: Reports: no symptoms Cardiovascular: Reports: no symptoms Respiratory: Reports: cough, shortness of breath Gastrointestinal/Abdominal: Reports: no symptoms Genitourinary: Reports: no symptoms Neurologic/Psychiatric: Reports: pre-existing deficit Endocrine: Reports: no symptoms Hematologic/Lymphatic: Reports: anemia Allergies: Coded Allergies: PENICILLINS (Verified Allergy, Intermediate, Rash, 09/01/19) Patient stated at this time All Systems: reviewed and negative except above Subjective on nrbm. no complaints. refusing bipap. sats ok on nrb ct and cxr noted. Objective Last 24 Hour Vital Signs Date Time Temp Pulse Resp B/P (MAP) Pulse Ox O2 Delivery O2 Flow Rate FiO2 09/15/19 08:19 102 127/62 (83) 09/15/19 08:00 113 09/15/19 08:00 Non-Rebreather 15.0 09/15/19 07:42 91 Non-Rebreather 15.0 100 09/15/19 07:39 97.7 112 20 98/72 (81) 90 09/15/19 05:13 104 31 93 Facial 100 09/15/19 04:30 100 09/15/19 04:17 106 34 91 Facial 100 09/15/19 04:00 105 09/15/19 04:00 97.5 106 22 102/58 (73) 90 09/15/19 04:00 15.0 09/15/19 04:00 Non-Rebreather 15.0 09/15/19 02:35 101 25 89 09/15/19 01:25 108 23 92 09/15/19 00:00 97.9 102 22 104/72 (83) 92 09/15/19 00:00 Non-Rebreather 15.0 09/15/19 00:00 108 09/15/19 00:00 15.0 09/14/19 23:30 110 26 89 09/14/19 21:06 106 27 93 09/14/19 20:00 15.0 12/31/19 20:00 114 09/14/19 20:00 Non-Rebreather 15.0 09/14/19 20:00 98.1 115 22 100/61 (74) 91 09/14/19 19:05 104 26 94 09/14/19 19:05 93 Non-Rebreather 15.0 100 09/14/19 16:25 Non-Rebreather 15.0 09/14/19 16:02 112 36 93 Facial 100 09/14/19 16:00 116 09/14/19 16:00 97.2 111 22 99/53 (68) 99 09/14/19 16:00 100 09/14/19 16:00 Non-Rebreather 15.0 09/14/19 12:00 15.0 09/14/19 12:00 Non-Rebreather 15.0 09/14/19 12:00 114 Intake and Output 09/14/19 09/15/19 19:00 07:00 Intake Total 875.000 ml 400 ml Output Total 1800 ml 600 ml Balance -925.000 ml -200 ml Intake Oral 600 ml 400 ml IV Total 275.000 ml Output Urine Total 1800 ml 600 ml # Bowel Movements 2 Laboratory Tests 09/14/19 20:45: Vancomycin Level Trough 21.9H Height (Feet): 5 Height (Inches): 8.00 Weight (Pounds): 153 Objective General Appearance: WD/WN, lethargic. on bipap. Neck: supple Cardiovascular: regular rhythm Respiratory/Chest: lungs dt rhonchi Abdomen: normal bowel sounds, non tender. small reducible periumbilical hernia Edema: no edema noted Arm (L), no edema noted Arm (R), no edema noted Leg (L), no edema noted Leg (R), no edema noted Pedal (L), no edema noted Pedal (R), no edema noted Generalized Henry Leavitt MD Sep 15, 2019 11:03
--- NOTE | 2019-09-15 11:06 | Infectious Diseases Prog Note ---
Assessment/Plan Assessment/Plan antibiotics : vancomycin iv A 1. MRSA pneumonia 2. respiratory failure 3. enterobacter UTI s/p rx 4. cirrhosis 5. ascites s/p paracentesis no SBP 6. thrombocytopenia 7. leucocytosis likely secondary to steroids improving P 1. continue iv vancomycin 5 more days 2. will follow up cultures Subjective Constitutional: Denies: fever, chills Respiratory: Reports: shortness of breath - decreased, productive cough - decreased Gastrointestinal/Abdominal: Denies: nausea, vomiting, diarrhea Musculoskeletal: Reports: pain Allergies: Coded Allergies: PENICILLINS (Verified Allergy, Intermediate, Rash, 09/01/19) Patient stated at this time Objective Vital Signs Last 24 Hour Vital Signs Date Time Temp Pulse Resp B/P (MAP) Pulse Ox O2 Delivery O2 Flow Rate FiO2 09/15/19 08:19 102 127/62 (83) 09/15/19 08:00 113 09/15/19 08:00 Non-Rebreather 15.0 09/15/19 07:42 91 Non-Rebreather 15.0 100 09/15/19 07:39 97.7 112 20 98/72 (81) 90 09/15/19 05:13 104 31 93 Facial 100 09/15/19 04:30 100 09/15/19 04:17 106 34 91 Facial 100 09/15/19 04:00 105 09/15/19 04:00 97.5 106 22 102/58 (73) 90 09/15/19 04:00 15.0 09/15/19 04:00 Non-Rebreather 15.0 09/15/19 02:35 101 25 89 09/15/19 01:25 108 23 92 09/15/19 00:00 97.9 102 22 104/72 (83) 92 09/15/19 00:00 Non-Rebreather 15.0 09/15/19 00:00 108 09/15/19 00:00 15.0 09/14/19 23:30 110 26 89 09/14/19 21:06 106 27 93 09/14/19 20:00 15.0 09/14/19 20:00 114 09/14/19 20:00 Non-Rebreather 15.0 09/14/19 20:00 98.1 115 22 100/61 (74) 91 09/14/19 19:05 104 26 94 09/14/19 19:05 93 Non-Rebreather 15.0 100 09/14/19 16:25 Non-Rebreather 15.0 09/14/19 16:02 112 36 93 Facial 100 09/14/19 16:00 116 09/14/19 16:00 97.2 111 22 99/53 (68) 99 09/14/19 16:00 100 09/14/19 16:00 Non-Rebreather 15.0 09/14/19 12:00 15.0 09/14/19 12:00 Non-Rebreather 15.0 09/14/19 12:00 114 Height (Feet): 5 Height (Inches): 8.00 Weight (Pounds): 153 Respiratory/Chest: lungs clear Cardiovascular: normal rate, regular rhythm, no gallop/murmur Abdomen: soft, non tender Extremities: no edema Laboratory Tests Test 09/14/19 20:45 Vancomycin Level Trough 21.9 ug/mL (5.0-12.0) H Current Medications Medications (Trade) Dose Ordered Sig/Akash Route PRN Reason Start Time Stop Time Status Last Admin Dose Admin Acetaminophen (Tylenol) 650 mg Q4H PRN ORAL Mild Pain/Temp > 100.5 08/28/19 07:00 09/22/19 10:59 09/07/19 04:09 Diphenhydramine HCl (Benadryl) 25 mg Q6H PRN ORAL Itching 09/06/19 14:15 10/06/19 14:14 09/15/19 09:05 Furosemide (Lasix) 40 mg BID IV 09/15/19 18:00 10/06/19 08:59 Guaifenesin/ Dextromethorphan (Robitussin DM Syrup) 5 ml Q4H PRN ORAL For Cough 08/28/19 06:15 09/26/19 06:14 Heparin Sodium (Porcine) (Heparin 5000 units/ml) 5,000 units EVERY 12 HOURS SUBQ 08/29/19 09:30 09/28/19 09:29 09/15/19 08:16 Methylprednisolone Sodium Succinate (Solu-MEDROL) 40 mg DAILY IVP 09/06/19 09:00 10/06/19 08:59 09/15/19 08:15 Multivitamins (Multivitamins) 1 tab DAILY ORAL 08/28/19 09:00 09/22/19 08:59 09/15/19 08:15 Nicotine (Nicoderm) 1 patch Q24H TDERMAL 08/28/19 16:00 09/23/19 15:59 09/14/19 15:37 Ondansetron HCl (Zofran) 4 mg Q6H PRN IVP Nausea & Vomiting 08/28/19 09:30 09/22/19 03:29 Pantoprazole (Protonix) 40 mg DAILY ORAL 08/28/19 09:00 09/22/19 08:59 09/15/19 08:15 Spironolactone (Aldactone) 25 mg DAILY ORAL 08/28/19 09:00 09/24/19 08:59 09/15/19 08:15 Thiamine HCl (Vitamin B1) 100 mg DAILY ORAL 08/28/19 09:00 09/22/19 08:59 09/15/19 08:15 Vancomycin HCl (Vanco rx to dose) 1 ea DAILY PRN MISC Per rx protocol 09/11/19 11:00 10/11/19 10:59 Vancomycin HCl 750 mg/Dextrose 275 ml @ 183.333 mls/hr Q12H IVPB 09/15/19 09:00 09/20/19 08:59 09/15/19 08:19 Morena Erazo MD Sep 15, 2019 11:06
--- NOTE | 2019-09-15 11:55 | Pulmonology Progress Note ---
Assessment/Plan Assessment/Plan Impression - MRSA Pneumonia - Persistent leucocytosis - Hypoxic respiratory Failure - CHFpEF - Atrial Fibrillation - Cirrhosis, h/o ETOH Use, ascites s/p Paracentesis - Homeless - Enterobacter UTI s/p rx - Thrombocytopenia - Anasarca PLAN increase lasix to bid keep negative steroid taper BIPAP PRN on high flow oxygen at risk for intubation impression, plan, and exam edited and reviewed in detail care discussed with RN Subjective ROS Limited/Unobtainable: Yes Allergies: Coded Allergies: PENICILLINS (Verified Allergy, Intermediate, Rash, 09/01/19) Patient stated at this time Subjective care noted imaging reviewed still on 100% Objective Last 24 Hour Vital Signs Date Time Temp Pulse Resp B/P (MAP) Pulse Ox O2 Delivery O2 Flow Rate FiO2 09/15/19 11:30 98.2 106 21 133/61 (85) 98 106 106 09/15/19 08:19 102 127/62 (83) 09/15/19 08:00 113 09/15/19 08:00 Non-Rebreather 15.0 09/15/19 07:42 91 Non-Rebreather 15.0 100 09/15/19 07:39 97.7 112 20 98/72 (81) 90 09/15/19 05:13 104 31 93 Facial 100 09/15/19 04:30 100 09/15/19 04:17 106 34 91 Facial 100 09/15/19 04:00 105 09/15/19 04:00 97.5 106 22 102/58 (73) 90 09/15/19 04:00 15.0 09/15/19 04:00 Non-Rebreather 15.0 09/15/19 02:35 101 25 89 09/15/19 01:25 108 23 92 09/15/19 00:00 97.9 102 22 104/72 (83) 92 09/15/19 00:00 Non-Rebreather 15.0 09/15/19 00:00 108 09/15/19 00:00 15.0 09/14/19 23:30 110 26 89 09/14/19 21:06 106 27 93 09/14/19 20:00 15.0 09/14/19 20:00 114 09/14/19 20:00 Non-Rebreather 15.0 09/14/19 20:00 98.1 115 22 100/61 (74) 91 09/14/19 19:05 104 26 94 09/14/19 19:05 93 Non-Rebreather 15.0 100 09/14/19 16:25 Non-Rebreather 15.0 09/14/19 16:02 112 36 93 Facial 100 09/14/19 16:00 116 09/14/19 16:00 97.2 111 22 99/53 (68) 99 09/14/19 16:00 100 09/14/19 16:00 Non-Rebreather 15.0 09/14/19 12:00 15.0 09/14/19 12:00 Non-Rebreather 15.0 09/14/19 12:00 114 Intake and Output 09/14/19 09/15/19 19:00 07:00 Intake Total 875.000 ml 400 ml Output Total 1800 ml 600 ml Balance -925.000 ml -200 ml Intake Oral 600 ml 400 ml IV Total 275.000 ml Output Urine Total 1800 ml 600 ml # Bowel Movements 2 Objective WDWN NAD clear breath sounds bilaterally without rhonchi or wheeze [id number] without MRG NABS nontender no HSM some distention no CC some edema nonfocal Laboratory Tests 09/14/19 20:45: Vancomycin Level Trough 21.9H Current Medications Medications (Trade) Dose Ordered Sig/Akash Route PRN Reason Start Time Stop Time Status Last Admin Dose Admin Acetaminophen (Tylenol) 650 mg Q4H PRN ORAL Mild Pain/Temp > 100.5 08/28/19 07:00 09/22/19 10:59 09/07/19 04:09 Diphenhydramine HCl (Benadryl) 25 mg Q6H PRN ORAL Itching 09/06/19 14:15 10/06/19 14:14 09/15/19 09:05 Furosemide (Lasix) 40 mg BID IV 09/15/19 18:00 10/06/19 08:59 Guaifenesin/ Dextromethorphan (Robitussin DM Syrup) 5 ml Q4H PRN ORAL For Cough 08/28/19 06:15 09/26/19 06:14 Heparin Sodium (Porcine) (Heparin 5000 units/ml) 5,000 units EVERY 12 HOURS SUBQ 08/29/19 09:30 09/28/19 09:29 09/15/19 08:16 Methylprednisolone Sodium Succinate (Solu-MEDROL) 40 mg DAILY IVP 09/06/19 09:00 10/06/19 08:59 09/15/19 08:15 Multivitamins (Multivitamins) 1 tab DAILY ORAL 08/28/19 09:00 09/22/19 08:59 09/15/19 08:15 Nicotine (Nicoderm) 1 patch Q24H TDERMAL 08/28/19 16:00 09/23/19 15:59 09/14/19 15:37 Ondansetron HCl (Zofran) 4 mg Q6H PRN IVP Nausea & Vomiting 08/28/19 09:30 09/22/19 03:29 Pantoprazole (Protonix) 40 mg DAILY ORAL 08/28/19 09:00 09/22/19 08:59 09/15/19 08:15 Spironolactone (Aldactone) 25 mg DAILY ORAL 08/28/19 09:00 09/24/19 08:59 09/15/19 08:15 Thiamine HCl (Vitamin B1) 100 mg DAILY ORAL 08/28/19 09:00 09/22/19 08:59 09/15/19 08:15 Vancomycin HCl (Vanco rx to dose) 1 ea DAILY PRN MISC Per rx protocol 09/11/19 11:00 10/11/19 10:59 Vancomycin HCl 750 mg/Dextrose 275 ml @ 183.333 mls/hr Q12H IVPB 09/15/19 09:00 09/20/19 08:59 09/15/19 08:19 Simon Lopez MD Sep 15, 2019 11:55
[2019-09-15 12:57] LABS: HEMATOCRIT 28.7 % (42.0-52.0); HEMOGLOBIN 9.7 G/DL (14.2-18.0); MEAN CORPUSCULAR VOLUME 107 FL (80-99); PLATELET COUNT 151 K/UL (150-450); RED BLOOD COUNT 2.67 M/UL (4.70-6.10); WHITE BLOOD COUNT 17.8 K/UL (4.8-10.8)
[2019-09-15 13:37] LABS: ALANINE AMINOTRANSFERASE 54 U/L (12-78); ALBUMIN 1.8 G/DL (3.4-5.0); ALBUMIN/GLOBULIN RATIO 0.4 (1.0-2.7); ALKALINE PHOSPHATASE 204 U/L (46-116); ANION GAP 3 mmol/L (5-15); ASPARTATE AMINO TRANSFERASE 57 U/L (15-37); BILIRUBIN,TOTAL 2.3 MG/DL (0.2-1.0); BLOOD UREA NITROGEN 17 mg/dL (7-18); CALCIUM 8.5 MG/DL (8.5-10.1); CARBON DIOXIDE 36 MMOL/L (21-32); CHLORIDE 99 MMOL/L (98-107); CREATININE 0.9 MG/DL (0.55-1.30); POTASSIUM 3.8 MMOL/L (3.5-5.1); SODIUM 138 MMOL/L (136-145)
[2019-09-15 13:40] LABS: BILIRUBIN,DIRECT 1.5 MG/DL (0.0-0.3)
--- NOTE | 2019-09-15 19:15 | NUR ---
NURSE NOTES: Received from REINALDO Abdi. Patient is aaox4, SR, vss, with no acute distress and on athletic monitor. Pt is cooperative, disheveled and needs some assistance grooming. Pt on non-rebreather, 98% at 15L. Skin issues noted with left forearm 18g. Bed at its lowest position, call light in reach and x3 bed rails are up.
--- NOTE | 2019-09-15 20:47 | NUR ---
RESPIRATORY NOTE: Pt placed on BiPAP d/t desaturation on 100% NRB per bedside RN. Pt now on BiPAP 15/8, back up rate 12, 100%. Pt on a Facial mask, skin intact, no redness/breakdowns noted. Foam tape applied on pt's nosebridge/cheeks to prevent mask irritations. Pt alert/awake, follows commands. B/S td. diminished, nonproductive cough. BiPAP plugged into red outlet, alarms on & audible. Pt in no apaprent distress at this time. SpO2 now at 90%. Will continue plan of care.
--- NOTE | 2019-09-15 20:51 | NUR ---
NURSE NOTES: Patient agreed to use the Bipap for 1 hour only. RT was called and informed of his preference and RT applied the Bipap. Pt is tolerating tx well.
--- NOTE | 2019-09-15 22:17 | NUR ---
NURSE NOTES: Patient wants to be taken off Bipap. RT called.
--- NOTE | 2019-09-15 22:22 | NUR ---
NURSE NOTES: Pt on non-rebreather ay 15L 98% saturation. Will continue to monitor.
--- NOTE | 2019-09-15 23:02 | NUR ---
NURSE NOTES: Patient is on non-rebreather 15L saturating at 92%.
[2019-09-16] VITALS: BP 107/70
--- NOTE | 2019-09-16 02:01 | NUR ---
NURSE NOTES: Pt saturating at 97% while sleeping and 85-92 while awake. Pt is restless and states the mask is bothering him. Pt is cooperative overall. Pt still refuses to use Bipap. Educated pt on the need for Bipap; pt stated that he understands. Education reinforcement needed for Bipap.
--- NOTE | 2019-09-16 03:19 | NUR ---
NURSE NOTES: Patient is stable and saturates at 97% during sleep. Patient desaturated to 87%-91% when he eats and drinks. Patient is stable with no acute distress.
[2019-09-16 04:00] VITALS: BP 115/75
--- NOTE | 2019-09-16 06:11 | NUR ---
NURSE NOTES: Patient has 5 skin growths on his penis shaft, base, and scrotum. They are soft fleshy, skin tone, cauliflower shaped growths with no pain.
--- NOTE | 2019-09-16 07:15 | NUR ---
HAND-OFF: Report given to REINALDO Castle.
--- NOTE | 2019-09-16 07:58 | Pulmonology Progress Note ---
Assessment/Plan Assessment/Plan Impression - MRSA Pneumonia - Persistent leucocytosis - Hypoxic respiratory Failure - CHFpEF - Atrial Fibrillation - Cirrhosis, h/o ETOH Use, ascites s/p Paracentesis - Homeless - Enterobacter UTI s/p rx - Thrombocytopenia - Anasarca PLAN lasix to bid keep negative and monitor steroid dc BIPAP PRN on high flow oxygen at risk for intubation repeat CXR impression, plan, and exam edited and reviewed in detail care discussed with RN Subjective Allergies: Coded Allergies: PENICILLINS (Verified Allergy, Intermediate, Rash, 09/01/19) Patient stated at this time Subjective care noted saturations better still on 100% Objective Last 24 Hour Vital Signs Date Time Temp Pulse Resp B/P (MAP) Pulse Ox O2 Delivery O2 Flow Rate FiO2 09/16/19 06:30 95 Non-Rebreather 15.0 100 09/16/19 04:00 97.5 114 22 115/75 (88) 91 114 09/16/19 04:00 Non-Rebreather 15.0 09/16/19 04:00 15.0 09/16/19 04:00 114 09/16/19 00:00 Non-Rebreather 15.0 09/16/19 00:00 98 09/16/19 00:00 97.5 100 24 107/70 (82) 95 100 09/15/19 22:21 15.0 09/15/19 20:48 100 09/15/19 20:44 112 33 89 Facial 100 09/15/19 20:00 98.2 105 22 108/67 (81) 92 105 09/15/19 20:00 115 09/15/19 20:00 Non-Rebreather 15.0 09/15/19 20:00 15.0 09/15/19 19:30 90 Non-Rebreather 15.0 100 09/15/19 16:00 97.9 101 20 122/65 (84) 99 101 101 09/15/19 16:00 Non-Rebreather 15.0 09/15/19 16:00 110 09/15/19 16:00 15.0 09/15/19 12:00 110 09/15/19 12:00 Non-Rebreather 15.0 09/15/19 12:00 15.0 09/15/19 11:30 98.2 106 21 133/61 (85) 98 106 106 09/15/19 08:19 102 127/62 (83) 09/15/19 08:00 113 09/15/19 08:00 Non-Rebreather 15.0 Intake and Output 09/15/19 09/16/19 18:59 06:59 Intake Total 975.000 ml 515.000 ml Output Total 1500 ml 750 ml Balance -525.000 ml -235.000 ml Intake Oral 700 ml 240 ml IV Total 275.000 ml 275.000 ml Output Urine Total 1500 ml 750 ml # Bowel Movements 3 1 Objective WDWN NAD reduced breath sounds bilaterally without rhonchi or wheeze [id number] without MRG NABS nontender no HSM some distention no CC some edema nonfocal Laboratory Tests 09/15/19 12:32: White Blood Count 17.8H, Red Blood Count 2.67L, Hemoglobin 9.7L, Hematocrit 28.7L, Mean Corpuscular Volume 107H, Mean Corpuscular Hemoglobin 36.2H, Mean Corpuscular Hemoglobin Concent 33.7, Red Cell Distribution Width 14.0, Platelet Count 151, Mean Platelet Volume 7.1, Neutrophils (%) (Auto) , Lymphocytes (%) ( Auto) , Monocytes (%) (Auto) , Eosinophils (%) (Auto) , Basophils (%) (Auto) , Differential Total Cells Counted 100, Neutrophils % (Manual) 89H, Lymphocytes % (Manual) 4L, Monocytes % (Manual) 5, Eosinophils % (Manual) 2, Basophils % ( Manual) 0, Band Neutrophils 0, Platelet Estimate Adequate, Platelet Morphology Normal, Macrocytosis 1+, Sodium Level 138, Potassium Level 3.8, Chloride Level 99, Carbon Dioxide Level 36H, Anion Gap 3L, Blood Urea Nitrogen 17, Creatinine 0.9, Estimat Glomerular Filtration Rate > 60, Glucose Level 159H, Calcium Level 8.5, Total Bilirubin 2.3H, Direct Bilirubin 1.5H, Aspartate Amino Transf (AST/ SGOT) 57H, Alanine Aminotransferase (ALT/SGPT) 54, Alkaline Phosphatase 204H, Total Protein 6.5, Albumin 1.8L, Globulin 4.7, Albumin/Globulin Ratio 0.4L Current Medications Medications (Trade) Dose Ordered Sig/Akash Route PRN Reason Start Time Stop Time Status Last Admin Dose Admin Acetaminophen (Tylenol) 650 mg Q4H PRN ORAL Mild Pain/Temp > 100.5 08/28/19 07:00 09/22/19 10:59 09/07/19 04:09 Diphenhydramine HCl (Benadryl) 25 mg Q6H PRN ORAL Itching 09/06/19 14:15 10/06/19 14:14 09/16/19 01:30 Furosemide (Lasix) 40 mg BID IV 09/15/19 18:00 10/06/19 08:59 09/15/19 17:13 Guaifenesin/ Dextromethorphan (Robitussin DM Syrup) 5 ml Q4H PRN ORAL For Cough 08/28/19 06:15 09/26/19 06:14 Heparin Sodium (Porcine) (Heparin 5000 units/ml) 5,000 units EVERY 12 HOURS SUBQ 08/29/19 09:30 09/28/19 09:29 09/15/19 20:31 Multivitamins (Multivitamins) 1 tab DAILY ORAL 08/28/19 09:00 09/22/19 08:59 09/15/19 08:15 Nicotine (Nicoderm) 1 patch Q24H TDERMAL 08/28/19 16:00 09/23/19 15:59 09/15/19 15:46 Ondansetron HCl (Zofran) 4 mg Q6H PRN IVP Nausea & Vomiting 08/28/19 09:30 09/22/19 03:29 Pantoprazole (Protonix) 40 mg DAILY ORAL 08/28/19 09:00 09/22/19 08:59 09/15/19 08:15 Spironolactone (Aldactone) 25 mg DAILY ORAL 08/28/19 09:00 09/24/19 08:59 09/15/19 08:15 Thiamine HCl (Vitamin B1) 100 mg DAILY ORAL 08/28/19 09:00 09/22/19 08:59 09/15/19 08:15 Vancomycin HCl (Vanco rx to dose) 1 ea DAILY PRN MISC Per rx protocol 09/11/19 11:00 10/11/19 10:59 Vancomycin HCl 750 mg/Dextrose 275 ml @ 183.333 mls/hr Q12H IVPB 09/15/19 09:00 09/20/19 08:59 09/15/19 20:21 Simon Lopez MD Sep 16, 2019 07:58
[2019-09-16 08:00] VITALS: BP 114/68
--- NOTE | 2019-09-16 08:06 | NUR ---
NURSE NOTES: received pt in the bed, awake, alert, oriented, vital signs stable, no co pain, no SOB, Non-Rebreather mask, tolerate well, skin warm and dry to touch, intact, SR on monitor, bed in low position, call light within reach.
[2019-09-16] MEDS: Thiamine 100mg tab ORAL SCH (08:56)
[2019-09-16] MEDS: Vancomycin 750mg/D5W 275ml IVPB SCH ×4 (08:56→20:07)
[2019-09-16] MEDS: Spironolactone 25mg tab ORAL SCH (08:56)
[2019-09-16] MEDS: Heparin 5000 units/ml inj SUBQ SCH ×2 (08:57→20:08)
--- NOTE | 2019-09-16 10:35 | Infectious Diseases Prog Note ---
Assessment/Plan Assessment/Plan IMPRESSION: 1. MRSA pneumonia. 2. Enterobacter UTI that was treated. 3. Cirrhosis with ascites. 4. MRSA colonization. 5. Anemia. 6. Thrombocytopenia. 7. Hypokalemia corrected 8. Hypercapnic respiratory failure. 9. Leukocytosis RECOMMENDATIONS: Continue IV Vancomycin X 4 days Subjective ROS Limited/Unobtainable: No Constitutional: Reports: no symptoms Respiratory: Reports: shortness of breath, dry cough Cardiovascular: Reports: no symptoms Gastrointestinal/Abdominal: Reports: no symptoms Genitourinary: Reports: no symptoms Allergies: Coded Allergies: PENICILLINS (Verified Allergy, Intermediate, Rash, 09/01/19) Patient stated at this time Objective Vital Signs Last 24 Hour Vital Signs Date Time Temp Pulse Resp B/P (MAP) Pulse Ox O2 Delivery O2 Flow Rate FiO2 09/16/19 09:42 100 09/16/19 08:00 Non-Rebreather 15.0 09/16/19 08:00 98.1 112 20 114/68 (83) 92 114 09/16/19 08:00 15.0 09/16/19 06:30 95 Non-Rebreather 15.0 100 09/16/19 04:00 97.5 114 22 115/75 (88) 91 114 09/16/19 04:00 Non-Rebreather 15.0 09/16/19 04:00 15.0 09/16/19 04:00 114 09/16/19 00:00 Non-Rebreather 15.0 09/16/19 00:00 98 09/16/19 00:00 97.5 100 24 107/70 (82) 95 100 09/15/19 22:21 15.0 09/15/19 20:48 100 09/15/19 20:44 112 33 89 Facial 100 09/15/19 20:00 98.2 105 22 108/67 (81) 92 105 09/15/19 20:00 115 09/15/19 20:00 Non-Rebreather 15.0 09/15/19 20:00 15.0 09/15/19 19:30 90 Non-Rebreather 15.0 100 09/15/19 16:00 97.9 101 20 122/65 (84) 99 101 101 09/15/19 16:00 Non-Rebreather 15.0 09/15/19 16:00 110 09/15/19 16:00 15.0 09/15/19 12:00 110 09/15/19 12:00 Non-Rebreather 15.0 09/15/19 12:00 15.0 09/15/19 11:30 98.2 106 21 133/61 (85) 98 106 106 Height (Feet): 5 Height (Inches): 8.00 Weight (Pounds): 157 HEENT: mucous membranes moist Respiratory/Chest: decreased breath sounds, other - oxygen by rebreathing mask Cardiovascular: tachycardia Abdomen: soft, non tender Extremities: no edema Neurologic/Psychiatric: alert, responsive Laboratory Tests Test 09/15/19 12:32 White Blood Count 17.8 K/UL (4.8-10.8) H Red Blood Count 2.67 M/UL (4.70-6.10) L Hemoglobin 9.7 G/DL (14.2-18.0) L Hematocrit 28.7 % (42.0-52.0) L Mean Corpuscular Volume 107 FL (80-99) H Mean Corpuscular Hemoglobin 36.2 PG (27.0-31.0) H Mean Corpuscular Hemoglobin Concent 33.7 G/DL (32.0-36.0) Red Cell Distribution Width 14.0 % (11.6-14.8) Platelet Count 151 K/UL (150-450) Mean Platelet Volume 7.1 FL (6.5-10.1) Neutrophils (%) (Auto) % (45.0-75.0) Lymphocytes (%) (Auto) % (20.0-45.0) Monocytes (%) (Auto) % (1.0-10.0) Eosinophils (%) (Auto) % (0.0-3.0) Basophils (%) (Auto) % (0.0-2.0) Differential Total Cells Counted 100 Neutrophils % (Manual) 89 % (45-75) H Lymphocytes % (Manual) 4 % (20-45) L Monocytes % (Manual) 5 % (1-10) Eosinophils % (Manual) 2 % (0-3) Basophils % (Manual) 0 % (0-2) Band Neutrophils 0 % (0-8) Platelet Estimate Adequate Platelet Morphology Normal Macrocytosis 1+ Sodium Level 138 MMOL/L (136-145) Potassium Level 3.8 MMOL/L (3.5-5.1) Chloride Level 99 MMOL/L (98-107) Carbon Dioxide Level 36 MMOL/L (21-32) H Anion Gap 3 mmol/L (5-15) L Blood Urea Nitrogen 17 mg/dL (7-18) Creatinine 0.9 MG/DL (0.55-1.30) Estimat Glomerular Filtration Rate > 60 mL/min (>60) Glucose Level 159 MG/DL (74-106) H Calcium Level 8.5 MG/DL (8.5-10.1) Total Bilirubin 2.3 MG/DL (0.2-1.0) H Direct Bilirubin 1.5 MG/DL (0.0-0.3) H Aspartate Amino Transf (AST/SGOT) 57 U/L (15-37) H Alanine Aminotransferase (ALT/SGPT) 54 U/L (12-78) Alkaline Phosphatase 204 U/L (46-116) H Total Protein 6.5 G/DL (6.4-8.2) Albumin 1.8 G/DL (3.4-5.0) L Globulin 4.7 g/dL Albumin/Globulin Ratio 0.4 (1.0-2.7) L Current Medications Medications (Trade) Dose Ordered Sig/Akash Route PRN Reason Start Time Stop Time Status Last Admin Dose Admin Acetaminophen (Tylenol) 650 mg Q4H PRN ORAL Mild Pain/Temp > 100.5 08/28/19 07:00 09/22/19 10:59 09/07/19 04:09 Diphenhydramine HCl (Benadryl) 25 mg Q6H PRN ORAL Itching 09/06/19 14:15 10/06/19 14:14 09/16/19 08:56 Furosemide (Lasix) 40 mg BID IV 09/15/19 18:00 10/06/19 08:59 09/16/19 08:55 Guaifenesin/ Dextromethorphan (Robitussin DM Syrup) 5 ml Q4H PRN ORAL For Cough 08/28/19 06:15 09/26/19 06:14 Heparin Sodium (Porcine) (Heparin 5000 units/ml) 5,000 units EVERY 12 HOURS SUBQ 08/29/19 09:30 09/28/19 09:29 09/16/19 08:57 Multivitamins (Multivitamins) 1 tab DAILY ORAL 08/28/19 09:00 09/22/19 08:59 09/16/19 08:56 Nicotine (Nicoderm) 1 patch Q24H TDERMAL 08/28/19 16:00 09/23/19 15:59 09/15/19 15:46 Ondansetron HCl (Zofran) 4 mg Q6H PRN IVP Nausea & Vomiting 08/28/19 09:30 09/22/19 03:29 Pantoprazole (Protonix) 40 mg DAILY ORAL 08/28/19 09:00 09/22/19 08:59 09/16/19 08:56 Spironolactone (Aldactone) 25 mg DAILY ORAL 08/28/19 09:00 09/24/19 08:59 09/16/19 08:56 Thiamine HCl (Vitamin B1) 100 mg DAILY ORAL 08/28/19 09:00 09/22/19 08:59 09/16/19 08:56 Vancomycin HCl (Vanco rx to dose) 1 ea DAILY PRN MISC Per rx protocol 09/11/19 11:00 10/11/19 10:59 Vancomycin HCl 750 mg/Dextrose 275 ml @ 183.333 mls/hr Q12H IVPB 09/15/19 09:00 09/20/19 08:59 09/16/19 08:56 Jamie Swanson MD Sep 16, 2019 10:35
--- NOTE | 2019-09-16 11:58 | General Progress Note ---
Assessment/Plan Problem List: (1) AMS (altered mental status) ICD Codes: R41.82 - Altered mental status, unspecified SNOMED: [id number] Status: stable Assessment/Plan: o2 bipap prn- currently refusing follow up cxr diuresis critical and guarded ?ltach Subjective ROS Limited/Unobtainable: No Constitutional: Reports: malaise, weakness HEENT: Reports: no symptoms Cardiovascular: Reports: no symptoms Respiratory: Reports: cough, shortness of breath, SOB at rest Gastrointestinal/Abdominal: Reports: no symptoms Genitourinary: Reports: no symptoms Neurologic/Psychiatric: Reports: no symptoms Endocrine: Reports: no symptoms Hematologic/Lymphatic: Reports: no symptoms Allergies: Coded Allergies: PENICILLINS (Verified Allergy, Intermediate, Rash, 09/01/19) Patient stated at this time All Systems: reviewed and negative except above Subjective no change. remains on nrbm. no complaints. refusing bipap. sats ok on nrb ct and cxr noted. Objective Last 24 Hour Vital Signs Date Time Temp Pulse Resp B/P (MAP) Pulse Ox O2 Delivery O2 Flow Rate FiO2 09/16/19 09:42 100 09/16/19 08:00 Non-Rebreather 15.0 09/16/19 08:00 98.1 112 20 114/68 (83) 92 114 09/16/19 08:00 15.0 09/16/19 06:30 95 Non-Rebreather 15.0 100 09/16/19 04:00 97.5 114 22 115/75 (88) 91 114 09/16/19 04:00 Non-Rebreather 15.0 09/16/19 04:00 15.0 09/16/19 04:00 114 09/16/19 00:00 Non-Rebreather 15.0 09/16/19 00:00 98 09/16/19 00:00 97.5 100 24 107/70 (82) 95 100 09/15/19 22:21 15.0 09/15/19 20:48 100 09/15/19 20:44 112 33 89 Facial 100 09/15/19 20:00 98.2 105 22 108/67 (81) 92 105 09/15/19 20:00 115 09/15/19 20:00 Non-Rebreather 15.0 09/15/19 20:00 15.0 09/15/19 19:30 90 Non-Rebreather 15.0 100 09/15/19 16:00 97.9 101 20 122/65 (84) 99 101 101 09/15/19 16:00 Non-Rebreather 15.0 09/15/19 16:00 110 09/15/19 16:00 15.0 09/15/19 12:00 110 09/15/19 12:00 Non-Rebreather 15.0 09/15/19 12:00 15.0 Intake and Output 09/15/19 09/16/19 19:00 07:00 Intake Total 975.000 ml 515.000 ml Output Total 1500 ml 750 ml Balance -525.000 ml -235.000 ml Intake Oral 700 ml 240 ml IV Total 275.000 ml 275.000 ml Output Urine Total 1500 ml 750 ml # Bowel Movements 3 1 Laboratory Tests 09/15/19 12:32: White Blood Count 17.8H, Red Blood Count 2.67L, Hemoglobin 9.7L, Hematocrit 28.7L, Mean Corpuscular Volume 107H, Mean Corpuscular Hemoglobin 36.2H, Mean Corpuscular Hemoglobin Concent 33.7, Red Cell Distribution Width 14.0, Platelet Count 151, Mean Platelet Volume 7.1, Neutrophils (%) (Auto) , Lymphocytes (%) ( Auto) , Monocytes (%) (Auto) , Eosinophils (%) (Auto) , Basophils (%) (Auto) , Differential Total Cells Counted 100, Neutrophils % (Manual) 89H, Lymphocytes % (Manual) 4L, Monocytes % (Manual) 5, Eosinophils % (Manual) 2, Basophils % ( Manual) 0, Band Neutrophils 0, Platelet Estimate Adequate, Platelet Morphology Normal, Macrocytosis 1+, Sodium Level 138, Potassium Level 3.8, Chloride Level 99, Carbon Dioxide Level 36H, Anion Gap 3L, Blood Urea Nitrogen 17, Creatinine 0.9, Estimat Glomerular Filtration Rate > 60, Glucose Level 159H, Calcium Level 8.5, Total Bilirubin 2.3H, Direct Bilirubin 1.5H, Aspartate Amino Transf (AST/ SGOT) 57H, Alanine Aminotransferase (ALT/SGPT) 54, Alkaline Phosphatase 204H, Total Protein 6.5, Albumin 1.8L, Globulin 4.7, Albumin/Globulin Ratio 0.4L Height (Feet): 5 Height (Inches): 8.00 Weight (Pounds): 157 Objective General Appearance: WD/WN, lethargic. on bipap. Neck: supple Cardiovascular: regular rhythm Respiratory/Chest: lungs td rhonchi Abdomen: normal bowel sounds, non tender. small reducible periumbilical hernia Edema: no edema noted Arm (L), no edema noted Arm (R), no edema noted Leg (L), no edema noted Leg (R), no edema noted Pedal (L), no edema noted Pedal (R), no edema noted Generalized Henry Leavitt MD Sep 16, 2019 11:58
[2019-09-16 12:00] VITALS: BP 94/64
--- NOTE | 2019-09-16 12:00 | NUR ---
NURSE NOTES: pt on Bipap now, tolerate well, bed bath given, repositioned, continue monitoring.
--- NOTE | 2019-09-16 12:52 | NUR ---
[employer]; RESP FAILURE,AMS T. 97.9 HR 115 RR 18 B/P 94/66 NRM FIO2 100% IS: LASIX IV VANCO IV PENDING LTACH AUTH STEP DOWN STATUS
--- NOTE | 2019-09-16 13:44 | NUR ---
NURSE NOTES: pt back to venturi mask, tolerate well now, continue monitoring.
[2019-09-16 15:53] VITALS: BP 104/60
[2019-09-16] MEDS ORDERED: Tubing IV Secondary IV ONE (17:12)
[2019-09-16] MEDS ORDERED: NS 275ml ONE (17:12)
--- NOTE | 2019-09-16 19:16 | NUR ---
HAND-OFF: Report given to CHERRI VENTURA RN, no distress noted.
--- NOTE | 2019-09-16 19:25 | NUR ---
NURSE NOTES: Received pt from Corrine Walton RN. Pt is currently resting in the bed and is alert and oriented x3-4. Pt is currently on A nonrebreather mask with an O2 saturation of 996% noted. Pt remains SR on tele monitor at this time. L FA 18g IV catheter noted which remain patent, intact and asymptomatic at this time. Skin remains intact by ecchymosis noted. Safety precautions observed. Bed remains in lowest position, safety wheels engaged, side rails up x3, call light within reach and bed alarm activated. Will continue to care plan. Will continue to monitor.
[2019-09-16 20:00] VITALS: BP 107/67
[2019-09-17] VITALS (7 sets, daily range): BP systolic 94–112; BP diastolic 49–74
--- NOTE | 2019-09-17 07:25 | NUR ---
HAND-OFF: Report given to Corrine Walton RN. Pt remains stable at this time.
--- NOTE | 2019-09-17 08:03 | NUR ---
NURSE NOTES: received pt in the bed, awake, alert, oriented, vital signs stable, no co pain, no SOB, pt on Non-Rebreather mask, skin warm and dry to touch, intact, tolerate diet well, bed in low position, call light within reach.
--- NOTE | 2019-09-17 08:03 | Pulmonology Progress Note ---
Assessment/Plan Assessment/Plan Impression - MRSA Pneumonia - Persistent leucocytosis - Hypoxic respiratory Failure - CHFpEF - Atrial Fibrillation - Cirrhosis, h/o ETOH Use, ascites s/p Paracentesis - Homeless - Enterobacter UTI s/p rx - Thrombocytopenia - Anasarca PLAN lasix bid keep negative and monitor steroid dc BIPAP PRN on high flow oxygen at risk for intubation repeat CXR pending impression, plan, and exam edited and reviewed in detail care discussed with RN Subjective Allergies: Coded Allergies: PENICILLINS (Verified Allergy, Intermediate, Rash, 09/01/19) Patient stated at this time Subjective care noted saturations not improved still on 100% Objective Last 24 Hour Vital Signs Date Time Temp Pulse Resp B/P (MAP) Pulse Ox O2 Delivery O2 Flow Rate FiO2 09/17/19 07:01 89 Non-Rebreather 15.0 100 09/17/19 04:00 15.0 09/17/19 04:00 Non-Rebreather 15.0 09/17/19 04:00 99.2 90 32 108/74 (85) 99 09/17/19 03:40 118 09/17/19 00:00 98.1 110 32 109/69 (82) 94 09/17/19 00:00 Non-Rebreather 15.0 09/17/19 00:00 110 09/16/19 20:46 99 Non-Rebreather 15.0 100 09/16/19 20:00 15.0 09/16/19 20:00 Non-Rebreather 15.0 09/16/19 20:00 98.4 117 24 107/67 (80) 95 117 09/16/19 19:24 114 09/16/19 16:20 110 09/16/19 16:00 Non-Rebreather 15.0 09/16/19 16:00 15.0 09/16/19 15:53 98.3 112 21 104/60 (75) 89 112 09/16/19 12:00 122 09/16/19 12:00 Non-Rebreather 15.0 09/16/19 12:00 15.0 09/16/19 12:00 97.9 115 18 94/64 (74) 92 114 09/16/19 09:42 100 Intake and Output 09/16/19 09/17/19 19:00 07:00 Intake Total 655.000 ml 695.000 ml Output Total 2050 ml 1600 ml Balance -1395.000 ml -905.000 ml Intake Oral 380 ml 420 ml IV Total 275.000 ml 275.000 ml Output Urine Total 2050 ml 1600 ml # Bowel Movements 2 Objective WDWN NAD reduced breath sounds bilaterally without rhonchi or wheeze [id number] without MRG NABS nontender no HSM some distention no CC some edema nonfocal Laboratory Tests 09/16/19 19:40: Vancomycin Level Trough 15.8H Current Medications Medications (Trade) Dose Ordered Sig/Akash Route PRN Reason Start Time Stop Time Status Last Admin Dose Admin Acetaminophen (Tylenol) 650 mg Q4H PRN ORAL Mild Pain/Temp > 100.5 08/28/19 07:00 09/22/19 10:59 09/07/19 04:09 Diphenhydramine HCl (Benadryl) 25 mg Q6H PRN ORAL Itching 09/06/19 14:15 10/06/19 14:14 09/17/19 04:01 Furosemide (Lasix) 40 mg BID IV 09/15/19 18:00 10/06/19 08:59 09/16/19 18:09 Guaifenesin/ Dextromethorphan (Robitussin DM Syrup) 5 ml Q4H PRN ORAL For Cough 08/28/19 06:15 09/26/19 06:14 Heparin Sodium (Porcine) (Heparin 5000 units/ml) 5,000 units EVERY 12 HOURS SUBQ 08/29/19 09:30 09/28/19 09:29 09/16/19 20:08 Multivitamins (Multivitamins) 1 tab DAILY ORAL 08/28/19 09:00 09/22/19 08:59 09/16/19 08:56 Nicotine (Nicoderm) 1 patch Q24H TDERMAL 08/28/19 16:00 09/23/19 15:59 09/16/19 15:32 Ondansetron HCl (Zofran) 4 mg Q6H PRN IVP Nausea & Vomiting 08/28/19 09:30 09/22/19 03:29 Pantoprazole (Protonix) 40 mg DAILY ORAL 08/28/19 09:00 09/22/19 08:59 09/16/19 08:56 Spironolactone (Aldactone) 25 mg DAILY ORAL 08/28/19 09:00 09/24/19 08:59 09/16/19 08:56 Thiamine HCl (Vitamin B1) 100 mg DAILY ORAL 08/28/19 09:00 09/22/19 08:59 09/16/19 08:56 Vancomycin HCl (Vanco rx to dose) 1 ea DAILY PRN MISC Per rx protocol 09/11/19 11:00 10/11/19 10:59 Vancomycin HCl 750 mg/Dextrose 275 ml @ 183.333 mls/hr Q12H IVPB 09/15/19 09:00 09/20/19 08:59 09/16/19 20:07 Simon Lopez MD Sep 17, 2019 08:03
[2019-09-17] MEDS: Thiamine 100mg tab ORAL SCH (08:29)
[2019-09-17] MEDS: Spironolactone 25mg tab ORAL SCH (08:30)
[2019-09-17] MEDS: Vancomycin 750mg/D5W 275ml IVPB SCH ×4 (08:31→20:44)
[2019-09-17] MEDS: Heparin 5000 units/ml inj SUBQ SCH ×2 (08:33→20:46)
--- NOTE | 2019-09-17 09:37 | NUR ---
RADIOLOGY DEPT., CHEST X-RAY DONE.-P.DYE
--- NOTE | 2019-09-17 12:04 | Diagnostic Imaging Report ---
Indication: Shortness of breath Technique: XRAY Chest 1v Comparison: 09/14/2019 Findings: Extensive bilateral interstitial and airspace disease persists, not significantly changed compared to the prior exam. Heart size and mediastinal contours are stable. Osseous structures are stable. There is no radiographically appreciable pneumothorax. Motivation: Again noted in the left upper quadrant. Impression: No significant interval change in the radiographic appearance of the chest compared to the prior exam. Extensive bilateral interstitial and airspace disease persist which may related to pulmonary edema or multifocal pneumonia. A component of chronic underlying interstitial lung disease can also be considered.
--- NOTE | 2019-09-17 12:23 | NUR ---
NURSE NOTES: pt resting, vital signs stable, still on Non-rebreathe mask, no co pain, continue monitoring.
--- NOTE | 2019-09-17 12:28 | Infectious Diseases Prog Note ---
Assessment/Plan Assessment/Plan IMPRESSION: 1. MRSA pneumonia. 2. Enterobacter UTI that was treated. 3. Cirrhosis with ascites. 4. MRSA colonization. 5. Anemia. 6. Thrombocytopenia. 7. Hypokalemia corrected 8. Hypercapnic respiratory failure. 9. Leukocytosis RECOMMENDATIONS: Continue IV Vancomycin X 3 days Subjective ROS Limited/Unobtainable: Yes Respiratory: Reports: shortness of breath, dry cough Allergies: Coded Allergies: PENICILLINS (Verified Allergy, Intermediate, Rash, 09/01/19) Patient stated at this time Objective Vital Signs Last 24 Hour Vital Signs Date Time Temp Pulse Resp B/P (MAP) Pulse Ox O2 Delivery O2 Flow Rate FiO2 09/17/19 12:00 98.3 120 28 109/63 (78) 90 09/17/19 12:00 15.0 09/17/19 12:00 Non-Rebreather 15.0 09/17/19 08:00 Non-Rebreather 15.0 09/17/19 08:00 15.0 09/17/19 08:00 97.0 119 29 112/64 (80) 84 09/17/19 07:41 114 09/17/19 07:01 89 Non-Rebreather 15.0 100 09/17/19 04:00 15.0 09/17/19 04:00 Non-Rebreather 15.0 09/17/19 04:00 99.2 90 32 108/74 (85) 99 09/17/19 03:40 118 09/17/19 00:00 98.1 110 32 109/69 (82) 94 09/17/19 00:00 Non-Rebreather 15.0 09/17/19 00:00 110 09/16/19 20:46 99 Non-Rebreather 15.0 100 09/16/19 20:00 15.0 09/16/19 20:00 Non-Rebreather 15.0 09/16/19 20:00 98.4 117 24 107/67 (80) 95 117 09/16/19 19:24 114 09/16/19 16:20 110 09/16/19 16:00 Non-Rebreather 15.0 09/16/19 16:00 15.0 09/16/19 15:53 98.3 112 21 104/60 (75) 89 112 Height (Feet): 5 Height (Inches): 8.00 Weight (Pounds): 148 HEENT: mucous membranes moist Respiratory/Chest: lungs clear, other - oxygenby rebreating mask Cardiovascular: tachycardia Abdomen: soft, non tender Extremities: no edema Neurologic/Psychiatric: alert, responsive Laboratory Tests Test 09/16/19 19:40 Vancomycin Level Trough 15.8 ug/mL (5.0-12.0) H Current Medications Medications (Trade) Dose Ordered Sig/Akash Route PRN Reason Start Time Stop Time Status Last Admin Dose Admin Acetaminophen (Tylenol) 650 mg Q4H PRN ORAL Mild Pain/Temp > 100.5 08/28/19 07:00 09/22/19 10:59 09/07/19 04:09 Diphenhydramine HCl (Benadryl) 25 mg Q6H PRN ORAL Itching 09/06/19 14:15 10/06/19 14:14 09/17/19 10:32 Furosemide (Lasix) 40 mg BID IV 09/15/19 18:00 10/06/19 08:59 09/17/19 08:35 Guaifenesin/ Dextromethorphan (Robitussin DM Syrup) 5 ml Q4H PRN ORAL For Cough 08/28/19 06:15 09/26/19 06:14 Heparin Sodium (Porcine) (Heparin 5000 units/ml) 5,000 units EVERY 12 HOURS SUBQ 08/29/19 09:30 09/28/19 09:29 09/17/19 08:33 Multivitamins (Multivitamins) 1 tab DAILY ORAL 08/28/19 09:00 09/22/19 08:59 09/17/19 08:30 Nicotine (Nicoderm) 1 patch Q24H TDERMAL 08/28/19 16:00 09/23/19 15:59 09/16/19 15:32 Ondansetron HCl (Zofran) 4 mg Q6H PRN IVP Nausea & Vomiting 08/28/19 09:30 09/22/19 03:29 Pantoprazole (Protonix) 40 mg DAILY ORAL 08/28/19 09:00 09/22/19 08:59 09/17/19 08:30 Spironolactone (Aldactone) 25 mg DAILY ORAL 08/28/19 09:00 09/24/19 08:59 09/17/19 08:30 Thiamine HCl (Vitamin B1) 100 mg DAILY ORAL 08/28/19 09:00 09/22/19 08:59 09/17/19 08:29 Vancomycin HCl (Vanco rx to dose) 1 ea DAILY PRN MISC Per rx protocol 09/11/19 11:00 10/11/19 10:59 Vancomycin HCl 750 mg/Dextrose 275 ml @ 183.333 mls/hr Q12H IVPB 09/15/19 09:00 09/20/19 08:59 09/17/19 08:31 Jamie Swanson MD Sep 17, 2019 12:28
--- NOTE | 2019-09-17 13:55 | NUR ---
MANAGER ERPNEWS ASSIGNMENT EDITOR SI: RESP FAILURE,AMS T. 97.0 HR 120 RR 32 NRM O2 SAT @ 89% CXR= EXTENSIVE BILATERAL INTERSTITIAL AND AIRSPACE VS EDEMA IS: LASIX IV VANCO IV HEAPRIN SUBC PROTONIX IV STEP DOWN STATUS
--- NOTE | 2019-09-17 14:15 | NUR ---
RD ASSESSMENT & RECOMMENDATIONS SEE CARE ACTIVITY FOR COMPLETE ASSESSMENT DAILY ESTIMATED NEEDS: Needs based on Liver, Pulmonary 72.2kg 25-30 kcals/kg 5961-9898 total kcals 1-1.5 g protein/kg 72-108 g total protein Fluid per MD mL/kg total fluid mLs NUTRITION DIAGNOSIS: * Decreased sodium and fat needs r/t clinical status, ascites, as evidenced by s/p paracentesis, elev LFT's, elev T bili * Swallowing difficulty R/T dysphagia, respiratory status as evidenced by pt on mech soft finely chopped texture, mostly on BIPAP, on non-rebreather during meals. CURRENT DIET:Cardiac, mech soft finely chopped PO DIET RECOMMENDATIONS: Low Fat/ Low Na diet / texture per SODA MAKER ADDITIONAL RECOMMENDATIONS: 1) Obtain daily standing weight for accuracy or calibrated bedscale wt current bedscale wt 136lbs vs EMR wt 148lbs vs initial bedscale wt 158lbs 2) Ensure Enlive BID w/ meals (350kcal/20g prot) 3) Continue thiamine/ MVI 4) Monitor lytes daily w/ diuretics, replete as needed (K low) .
--- NOTE | 2019-09-17 15:48 | NUR ---
*-* INSURANCE *-* ALL AVAILABLE CLINICALS AND REVIEWS HAVE BEEN FAXED TO: [facility]: DEEPAK P- [phone] X 1142 F- [phone]...........REVIEW/CLINICAL
--- NOTE | 2019-09-17 17:00 | NUR ---
NURSE NOTES: pt refuse to start new IV line.
--- NOTE | 2019-09-17 18:05 | General Progress Note ---
Assessment/Plan Problem List: (1) AMS (altered mental status) ICD Codes: R41.82 - Altered mental status, unspecified SNOMED: [id number] Status: stable Assessment/Plan: o2 bipap prn- currently refusing follow up cxr diuresis critical and guarded ?ltach Subjective ROS Limited/Unobtainable: No Constitutional: Reports: malaise, weakness HEENT: Reports: no symptoms Cardiovascular: Reports: no symptoms Respiratory: Reports: cough, shortness of breath Gastrointestinal/Abdominal: Reports: no symptoms Genitourinary: Reports: no symptoms Neurologic/Psychiatric: Reports: anxiety, emotional problems Endocrine: Reports: no symptoms Hematologic/Lymphatic: Reports: no symptoms Allergies: Coded Allergies: PENICILLINS (Verified Allergy, Intermediate, Rash, 09/01/19) Patient stated at this time All Systems: reviewed and negative except above Subjective no change. remain on nrb. very sob. no fevers. cxr- no improvement Objective Last 24 Hour Vital Signs Date Time Temp Pulse Resp B/P (MAP) Pulse Ox O2 Delivery O2 Flow Rate FiO2 09/17/19 16:00 15.0 09/17/19 16:00 99.1 115 24 94/49 (64) 96 09/17/19 16:00 Non-Rebreather 15.0 09/17/19 16:00 117 09/17/19 12:00 122 09/17/19 12:00 98.3 120 28 109/63 (78) 90 09/17/19 12:00 15.0 09/17/19 12:00 Non-Rebreather 15.0 09/17/19 08:00 Non-Rebreather 15.0 09/17/19 08:00 15.0 09/17/19 08:00 97.0 119 29 112/64 (80) 84 09/17/19 07:41 114 09/17/19 07:01 89 Non-Rebreather 15.0 100 09/17/19 04:00 15.0 09/17/19 04:00 Non-Rebreather 15.0 09/17/19 04:00 99.2 90 32 108/74 (85) 99 09/17/19 03:40 118 09/17/19 00:00 98.1 110 32 109/69 (82) 94 09/17/19 00:00 Non-Rebreather 15.0 09/17/19 00:00 110 09/16/19 20:46 99 Non-Rebreather 15.0 100 09/16/19 20:00 15.0 09/16/19 20:00 Non-Rebreather 15.0 09/16/19 20:00 98.4 117 24 107/67 (80) 95 117 09/16/19 19:24 114 Intake and Output 09/16/19 09/17/19 19:00 07:00 Intake Total 655.000 ml 695.000 ml Output Total 2050 ml 1600 ml Balance -1395.000 ml -905.000 ml Intake Oral 380 ml 420 ml IV Total 275.000 ml 275.000 ml Output Urine Total 2050 ml 1600 ml # Bowel Movements 2 Laboratory Tests 09/16/19 19:40: Vancomycin Level Trough 15.8H Height (Feet): 5 Height (Inches): 8.00 Weight (Pounds): 148 Objective General Appearance: WD/WN, lethargic. on bipap. Neck: supple Cardiovascular: regular rhythm Respiratory/Chest: lungs td rhonchi Abdomen: normal bowel sounds, non tender. small reducible periumbilical hernia Edema: no edema noted Arm (L), no edema noted Arm (R), no edema noted Leg (L), no edema noted Leg (R), no edema noted Pedal (L), no edema noted Pedal (R), no edema noted Generalized Henry Leavitt MD Sep 17, 2019 18:05
--- NOTE | 2019-09-17 19:21 | NUR ---
HAND-OFF: Report given to IVAN NAJERA, no sistress at this time.
--- NOTE | 2019-09-17 19:30 | NUR ---
NURSE NOTES: Report received from Corrine Stanley RN. Observed pt lying in the bed. SR on compliance monitor. On Non-rebreather at 15L, saturating at 99%. No acute distress noted at this time. IV on L FA 18G, intact, TKO. Bed in the lowest position. Side rails up x3. Will continue to monitor.
--- NOTE | 2019-09-17 23:23 | NUR ---
NURSE NOTES: Noted pt had an episode of Vtach, asymptomatic, ST on EKG. Left message to , awaiting for call back. Will continue to monitor.
[2019-09-18] VITALS: BP 110/71
--- NOTE | 2019-09-18 02:47 | NUR ---
NURSE NOTES: pt sleeping in the bed. No acute distress noted at this time. Will continue to monitor.
[2019-09-18 04:00] VITALS: BP 103/62
[2019-09-18 07:12] LABS: ALANINE AMINOTRANSFERASE 38 U/L (12-78); ALBUMIN 1.8 G/DL (3.4-5.0); ALBUMIN/GLOBULIN RATIO 0.4 (1.0-2.7); ALKALINE PHOSPHATASE 164 U/L (46-116); ANION GAP 2 mmol/L (5-15); ASPARTATE AMINO TRANSFERASE 46 U/L (15-37); BILIRUBIN,TOTAL 2.2 MG/DL (0.2-1.0); BLOOD UREA NITROGEN 14 mg/dL (7-18); CALCIUM 8.1 MG/DL (8.5-10.1); CARBON DIOXIDE 38 MMOL/L (21-32); CHLORIDE 97 MMOL/L (98-107); CREATININE 0.9 MG/DL (0.55-1.30); POTASSIUM 3.6 MMOL/L (3.5-5.1); SODIUM 137 MMOL/L (136-145)
[2019-09-18 07:15] LABS: BILIRUBIN,DIRECT 1.2 MG/DL (0.0-0.3)
--- NOTE | 2019-09-18 07:16 | NUR ---
HAND-OFF: Report given to REINALDO Abdi. Addendum: 09/18/19 at 0716 by Justen Fortune RN wrong input
--- NOTE | 2019-09-18 07:23 | NUR ---
HAND-OFF: Report given to REINALDO Giles.
--- NOTE | 2019-09-18 07:59 | NUR ---
NURSE NOTES: Recvd pt. Pt is AOX4 and is on non rebreather mask at max. cross tie cutter shows pt is ST. IV site is c/d/i. Was reported by occupational health physician that pt had episode of V tach and that they had notified Dr Gomez, Dr Gomez said he will review Mag level in morning. Bed in lowest position, call light within reach, will continue with plan of care
[2019-09-18 08:00] VITALS: BP 111/69
[2019-09-18] MEDS: Thiamine 100mg tab ORAL SCH (09:20)
[2019-09-18] MEDS: Vancomycin 750mg/D5W 275ml IVPB SCH ×4 (09:20→20:13)
[2019-09-18] MEDS: Spironolactone 25mg tab ORAL SCH (09:20)
[2019-09-18] MEDS: Heparin 5000 units/ml inj SUBQ SCH ×2 (09:22→20:14)
--- NOTE | 2019-09-18 09:48 | Pulmonology Progress Note ---
Assessment/Plan Assessment/Plan Impression - MRSA Pneumonia - Persistent leucocytosis - Hypoxic respiratory Failure - CHFpEF - Atrial Fibrillation - Cirrhosis, h/o ETOH Use, ascites s/p Paracentesis - Homeless - Enterobacter UTI s/p rx - Thrombocytopenia - Anasarca PLAN lasix bid keep negative and monitor steroid dc BIPAP PRN on high flow oxygen at risk for intubation repeat CXR still with significant infiltrates impression, plan, and exam edited and reviewed in detail care discussed with RN Subjective Allergies: Coded Allergies: PENICILLINS (Verified Allergy, Intermediate, Rash, 09/01/19) Patient stated at this time Subjective care noted saturations slightly better still on 100% Objective Last 24 Hour Vital Signs Date Time Temp Pulse Resp B/P (MAP) Pulse Ox O2 Delivery O2 Flow Rate FiO2 09/18/19 08:51 95 Non-Rebreather 15.0 100 09/18/19 08:00 Non-Rebreather 15.0 09/18/19 08:00 15.0 09/18/19 08:00 97.5 111 25 111/69 (83) 93 09/18/19 07:43 109 09/18/19 04:00 112 09/18/19 04:00 98.0 111 22 103/62 (76) 93 09/18/19 04:00 Non-Rebreather 15.0 09/18/19 04:00 15.0 09/18/19 00:00 111 09/18/19 00:00 15.0 09/18/19 00:00 Non-Rebreather 15.0 09/18/19 00:00 97.8 106 20 110/71 (84) 95 09/17/19 20:00 97.9 117 20 98/65 (76) 95 09/17/19 20:00 Non-Rebreather 15.0 09/17/19 20:00 15.0 09/17/19 19:40 92 Non-Rebreather 15.0 100 09/17/19 19:33 117 09/17/19 18:11 109/63 (78) 09/17/19 16:00 15.0 09/17/19 16:00 99.1 115 24 94/49 (64) 96 09/17/19 16:00 Non-Rebreather 15.0 09/17/19 16:00 117 09/17/19 12:00 122 09/17/19 12:00 98.3 120 28 109/63 (78) 90 09/17/19 12:00 15.0 09/17/19 12:00 Non-Rebreather 15.0 Intake and Output 09/17/19 09/18/19 19:00 07:00 Intake Total 675.000 ml 395 ml Output Total 1200 ml 1450 ml Balance -525.000 ml -1055 ml Intake Oral 400 ml 120 ml IV Total 275.000 ml 275 ml Output Urine Total 1200 ml 1450 ml # Bowel Movements 3 Objective WDWN NAD reduced breath sounds bilaterally without rhonchi or wheeze [id number] without MRG NABS nontender no HSM some distention no CC some edema nonfocal Laboratory Tests 09/18/19 04:08: Sodium Level 137, Potassium Level 3.6, Chloride Level 97L, Carbon Dioxide Level 38H, Anion Gap 2L, Blood Urea Nitrogen 14, Creatinine 0.9, Estimat Glomerular Filtration Rate > 60, Glucose Level 96, Calcium Level 8.1L, Magnesium Level 1.5L , Total Bilirubin 2.2H, Direct Bilirubin 1.2H, Aspartate Amino Transf (AST/SGOT ) 46H, Alanine Aminotransferase (ALT/SGPT) 38, Alkaline Phosphatase 164H, Total Protein 6.3L, Albumin 1.8L, Globulin 4.5, Albumin/Globulin Ratio 0.4L Current Medications Medications (Trade) Dose Ordered Sig/Akash Route PRN Reason Start Time Stop Time Status Last Admin Dose Admin Acetaminophen (Tylenol) 650 mg Q4H PRN ORAL Mild Pain/Temp > 100.5 08/28/19 07:00 09/22/19 10:59 09/07/19 04:09 Diphenhydramine HCl (Benadryl) 25 mg Q6H PRN ORAL Itching 09/06/19 14:15 10/06/19 14:14 09/18/19 09:27 Furosemide (Lasix) 40 mg BID IV 09/15/19 18:00 10/06/19 08:59 09/18/19 09:21 Guaifenesin/ Dextromethorphan (Robitussin DM Syrup) 5 ml Q4H PRN ORAL For Cough 08/28/19 06:15 09/26/19 06:14 Heparin Sodium (Porcine) (Heparin 5000 units/ml) 5,000 units EVERY 12 HOURS SUBQ 08/29/19 09:30 09/28/19 09:29 09/18/19 09:22 Multivitamins (Multivitamins) 1 tab DAILY ORAL 08/28/19 09:00 09/22/19 08:59 09/18/19 09:20 Nicotine (Nicoderm) 1 patch Q24H TDERMAL 08/28/19 16:00 09/23/19 15:59 09/17/19 16:23 Ondansetron HCl (Zofran) 4 mg Q6H PRN IVP Nausea & Vomiting 08/28/19 09:30 09/22/19 03:29 Pantoprazole (Protonix) 40 mg DAILY ORAL 08/28/19 09:00 09/22/19 08:59 09/18/19 09:20 Spironolactone (Aldactone) 25 mg DAILY ORAL 08/28/19 09:00 09/24/19 08:59 09/18/19 09:20 Thiamine HCl (Vitamin B1) 100 mg DAILY ORAL 08/28/19 09:00 09/22/19 08:59 09/18/19 09:20 Vancomycin HCl (Vanco rx to dose) 1 ea DAILY PRN MISC Per rx protocol 09/11/19 11:00 10/11/19 10:59 Vancomycin HCl 750 mg/Dextrose 275 ml @ 183.333 mls/hr Q12H IVPB 09/15/19 09:00 09/20/19 08:59 09/18/19 09:20 Simon Lopez MD Sep 18, 2019 09:48
[2019-09-18 12:00] VITALS: BP 101/62
--- NOTE | 2019-09-18 13:09 | Infectious Diseases Prog Note ---
Assessment/Plan Assessment/Plan IMPRESSION: 1. MRSA pneumonia. 2. Enterobacter UTI that was treated. 3. Cirrhosis with ascites. 4. MRSA colonization. 5. Anemia. 6. Thrombocytopenia. 7. Hypokalemia corrected 8. Hypercapnic respiratory failure. 9. Leukocytosis RECOMMENDATIONS: Continue IV Vancomycin X 2 days F/U CBC Subjective ROS Limited/Unobtainable: No Constitutional: Denies: fever Respiratory: Reports: shortness of breath, dry cough Cardiovascular: Reports: dyspnea on exertion Gastrointestinal/Abdominal: Reports: no symptoms Genitourinary: Reports: no symptoms Allergies: Coded Allergies: PENICILLINS (Verified Allergy, Intermediate, Rash, 09/01/19) Patient stated at this time Objective Vital Signs Last 24 Hour Vital Signs Date Time Temp Pulse Resp B/P (MAP) Pulse Ox O2 Delivery O2 Flow Rate FiO2 09/18/19 12:00 96.8 110 24 101/62 (75) 95 09/18/19 11:58 Non-Rebreather 15.0 09/18/19 11:57 15.0 09/18/19 08:51 95 Non-Rebreather 15.0 100 09/18/19 08:00 Non-Rebreather 15.0 09/18/19 08:00 15.0 09/18/19 08:00 97.5 111 25 111/69 (83) 93 09/18/19 07:43 109 09/18/19 04:00 112 09/18/19 04:00 98.0 111 22 103/62 (76) 93 09/18/19 04:00 Non-Rebreather 15.0 09/18/19 04:00 15.0 09/18/19 00:00 111 09/18/19 00:00 15.0 09/18/19 00:00 Non-Rebreather 15.0 09/18/19 00:00 97.8 106 20 110/71 (84) 95 09/17/19 20:00 97.9 117 20 98/65 (76) 95 09/17/19 20:00 Non-Rebreather 15.0 09/17/19 20:00 15.0 09/17/19 19:40 92 Non-Rebreather 15.0 100 09/17/19 19:33 117 09/17/19 18:11 109/63 (78) 09/17/19 16:00 15.0 09/17/19 16:00 99.1 115 24 94/49 (64) 96 09/17/19 16:00 Non-Rebreather 15.0 09/17/19 16:00 117 Height (Feet): 5 Height (Inches): 8.00 Weight (Pounds): 138 HEENT: mucous membranes moist Respiratory/Chest: other - oxygen by rebreathing mask,coarse sounds Abdomen: distended, other - ubilical hernia Neurologic/Psychiatric: alert, oriented x 3, responsive Musculoskeletal: atrophy Laboratory Tests Test 09/18/19 04:08 Sodium Level 137 MMOL/L (136-145) Potassium Level 3.6 MMOL/L (3.5-5.1) Chloride Level 97 MMOL/L (98-107) L Carbon Dioxide Level 38 MMOL/L (21-32) H Anion Gap 2 mmol/L (5-15) L Blood Urea Nitrogen 14 mg/dL (7-18) Creatinine 0.9 MG/DL (0.55-1.30) Estimat Glomerular Filtration Rate > 60 mL/min (>60) Glucose Level 96 MG/DL (74-106) Calcium Level 8.1 MG/DL (8.5-10.1) L Magnesium Level 1.5 MG/DL (1.8-2.4) L Total Bilirubin 2.2 MG/DL (0.2-1.0) H Direct Bilirubin 1.2 MG/DL (0.0-0.3) H Aspartate Amino Transf (AST/SGOT) 46 U/L (15-37) H Alanine Aminotransferase (ALT/SGPT) 38 U/L (12-78) Alkaline Phosphatase 164 U/L (46-116) H Total Protein 6.3 G/DL (6.4-8.2) L Albumin 1.8 G/DL (3.4-5.0) L Globulin 4.5 g/dL Albumin/Globulin Ratio 0.4 (1.0-2.7) L Current Medications Medications (Trade) Dose Ordered Sig/Akash Route PRN Reason Start Time Stop Time Status Last Admin Dose Admin Acetaminophen (Tylenol) 650 mg Q4H PRN ORAL Mild Pain/Temp > 100.5 08/28/19 07:00 09/22/19 10:59 09/07/19 04:09 Diphenhydramine HCl (Benadryl) 25 mg Q6H PRN ORAL Itching 09/06/19 14:15 10/06/19 14:14 09/18/19 09:27 Furosemide (Lasix) 40 mg BID IV 09/15/19 18:00 10/06/19 08:59 09/18/19 09:21 Guaifenesin/ Dextromethorphan (Robitussin DM Syrup) 5 ml Q4H PRN ORAL For Cough 08/28/19 06:15 09/26/19 06:14 Heparin Sodium (Porcine) (Heparin 5000 units/ml) 5,000 units EVERY 12 HOURS SUBQ 08/29/19 09:30 09/28/19 09:29 09/18/19 09:22 Multivitamins (Multivitamins) 1 tab DAILY ORAL 08/28/19 09:00 09/22/19 08:59 09/18/19 09:20 Nicotine (Nicoderm) 1 patch Q24H TDERMAL 08/28/19 16:00 09/23/19 15:59 09/17/19 16:23 Ondansetron HCl (Zofran) 4 mg Q6H PRN IVP Nausea & Vomiting 08/28/19 09:30 09/22/19 03:29 Pantoprazole (Protonix) 40 mg DAILY ORAL 08/28/19 09:00 09/22/19 08:59 09/18/19 09:20 Spironolactone (Aldactone) 25 mg DAILY ORAL 08/28/19 09:00 09/24/19 08:59 09/18/19 09:20 Thiamine HCl (Vitamin B1) 100 mg DAILY ORAL 08/28/19 09:00 09/22/19 08:59 09/18/19 09:20 Vancomycin HCl (Vanco rx to dose) 1 ea DAILY PRN MISC Per rx protocol 09/11/19 11:00 10/11/19 10:59 Vancomycin HCl 750 mg/Dextrose 275 ml @ 183.333 mls/hr Q12H IVPB 09/15/19 09:00 09/20/19 08:59 09/18/19 09:20 Jamie Swanson MD Sep 18, 2019 13:09
--- NOTE | 2019-09-18 15:27 | General Progress Note ---
Assessment/Plan Problem List: (1) AMS (altered mental status) ICD Codes: R41.82 - Altered mental status, unspecified SNOMED: 415229079 Status: stable Assessment/Plan: o2 bipap prn- currently refusing follow up cxr diuresis critical and guarded ?ltach Subjective ROS Limited/Unobtainable: No Constitutional: Reports: no symptoms HEENT: Reports: no symptoms Cardiovascular: Reports: no symptoms Respiratory: Reports: cough, shortness of breath Gastrointestinal/Abdominal: Reports: no symptoms Genitourinary: Reports: no symptoms Neurologic/Psychiatric: Reports: no symptoms Endocrine: Reports: no symptoms Hematologic/Lymphatic: Reports: anemia Allergies: Coded Allergies: PENICILLINS (Verified Allergy, Intermediate, Rash, 09/01/19) Patient stated at this time All Systems: reviewed and negative except above Subjective no change. remain on nrb. very sob. no fevers. cxr- no improvement Objective Last 24 Hour Vital Signs Date Time Temp Pulse Resp B/P (MAP) Pulse Ox O2 Delivery O2 Flow Rate FiO2 09/18/19 12:00 112 09/18/19 12:00 96.8 110 24 101/62 (75) 95 09/18/19 11:58 Non-Rebreather 15.0 09/18/19 11:57 15.0 09/18/19 08:51 95 Non-Rebreather 15.0 100 09/18/19 08:00 Non-Rebreather 15.0 09/18/19 08:00 15.0 09/18/19 08:00 97.5 111 25 111/69 (83) 93 09/18/19 07:43 109 09/18/19 04:00 112 09/18/19 04:00 98.0 111 22 103/62 (76) 93 09/18/19 04:00 Non-Rebreather 15.0 09/18/19 04:00 15.0 09/18/19 00:00 111 09/18/19 00:00 15.0 09/18/19 00:00 Non-Rebreather 15.0 09/18/19 00:00 97.8 106 20 110/71 (84) 95 09/17/19 20:00 97.9 117 20 98/65 (76) 95 09/17/19 20:00 Non-Rebreather 15.0 09/17/19 20:00 15.0 09/17/19 19:40 92 Non-Rebreather 15.0 100 09/17/19 19:33 117 09/17/19 18:11 109/63 (78) 09/17/19 16:00 15.0 09/17/19 16:00 99.1 115 24 94/49 (64) 96 09/17/19 16:00 Non-Rebreather 15.0 09/17/19 16:00 117 Intake and Output 09/17/19 09/18/19 19:00 07:00 Intake Total 675.000 ml 395 ml Output Total 1200 ml 1450 ml Balance -525.000 ml -1055 ml Intake Oral 400 ml 120 ml IV Total 275.000 ml 275 ml Output Urine Total 1200 ml 1450 ml # Bowel Movements 3 Laboratory Tests 09/18/19 04:08: Sodium Level 137, Potassium Level 3.6, Chloride Level 97L, Carbon Dioxide Level 38H, Anion Gap 2L, Blood Urea Nitrogen 14, Creatinine 0.9, Estimat Glomerular Filtration Rate > 60, Glucose Level 96, Calcium Level 8.1L, Magnesium Level 1.5L , Total Bilirubin 2.2H, Direct Bilirubin 1.2H, Aspartate Amino Transf (AST/SGOT ) 46H, Alanine Aminotransferase (ALT/SGPT) 38, Alkaline Phosphatase 164H, Total Protein 6.3L, Albumin 1.8L, Globulin 4.5, Albumin/Globulin Ratio 0.4L Height (Feet): 5 Height (Inches): 8.00 Weight (Pounds): 138 Objective General Appearance: WD/WN, lethargic. on bipap. Neck: supple Cardiovascular: regular rhythm Respiratory/Chest: lungs td rhonchi Abdomen: normal bowel sounds, non tender. small reducible periumbilical hernia Edema: no edema noted Arm (L), no edema noted Arm (R), no edema noted Leg (L), no edema noted Leg (R), no edema noted Pedal (L), no edema noted Pedal (R), no edema noted Generalized Henry Leavitt MD Sep 18, 2019 15:27
[2019-09-18 16:00] VITALS: BP 104/65
--- NOTE | 2019-09-18 19:19 | NUR ---
HAND-OFF: Report given to Oc Alvarado in stable condition .
--- NOTE | 2019-09-18 19:31 | NUR ---
NURSE NOTES: Received patient from REINALDO Giles. patient is observed resting in bed, eyes open, AO X4, denies pain at this time. patient is on nonrebreather mask at 15 L/min; FiO2: 100%; saturating at 91%; no s/sx of respiratory distress noted at this time. p Addendum: 09/18/19 at 1935 by GIL ULLOA RN RN equipment monitor phototypesetting shows sinus tachycardia with current heart rate of 115. no acute cardiac distress noted. LFA 18 g IV site patent and intact, asymptomatic. urinal at bedside. bed in lowest position and locked, siderails up X3, call light within reach. will continue to monitor.
[2019-09-18 20:00] VITALS: BP 109/65
[2019-09-19] VITALS: BP 110/70
[2019-09-19 04:00] VITALS: BP 109/72
[2019-09-19 05:42] LABS: BASOPHILS % (AUTO) 1.3 % (0.0-2.0); EOSINOPHILS % (AUTO) 12.2 % (0.0-3.0); HEMATOCRIT 27.4 % (42.0-52.0); HEMOGLOBIN 9.1 G/DL (14.2-18.0); LYMPHOCYTES % (AUTO) 9.9 % (20.0-45.0); MEAN CORPUSCULAR VOLUME 108 FL (80-99); NEUTROPHILS % (AUTO) 69.7 % (45.0-75.0); PLATELET COUNT 116 K/UL (150-450); RED BLOOD COUNT 2.55 M/UL (4.70-6.10); RED CELL DISTRIBUTION WIDTH 14.2 % (11.6-14.8); WHITE BLOOD COUNT 17.3 K/UL (4.8-10.8)
--- NOTE | 2019-09-19 07:42 | NUR ---
HAND-OFF: Report given to Adrian Shaver RN. patient is in stable condition.
--- NOTE | 2019-09-19 07:59 | NUR ---
NURSE NOTES: report received from Jenny ALEXANDER.Pt resting in bed aslee noted no resp distress on 100% NRB mask O2 sat 96%,awakens easily denies any c/o pain or discomfort,S-Tach on the monitor,skin warm and dry with IV heplock to RFA intact ,SR up x2 HOB elevated,call humphreys within reach at bedside,bed lock in lowest position will continue with plans of care.
[2019-09-19 08:00] VITALS: BP 95/53
[2019-09-19] MEDS: Spironolactone 25mg tab ORAL SCH (08:41)
[2019-09-19] MEDS: Thiamine 100mg tab ORAL SCH (08:41)
[2019-09-19] MEDS: Heparin 5000 units/ml inj SUBQ SCH ×2 (08:44→21:36)
[2019-09-19] MEDS: Vancomycin 750mg/D5W 275ml IVPB SCH ×4 (08:52→21:35)
--- NOTE | 2019-09-19 10:31 | General Progress Note ---
Assessment/Plan Problem List: (1) AMS (altered mental status) ICD Codes: R41.82 - Altered mental status, unspecified SNOMED: 404093148 Status: stable Assessment/Plan: o2 bipap prn- currently refusing follow up cxr diuresis critical and guarded ?ltach Subjective ROS Limited/Unobtainable: No Constitutional: Reports: malaise, weakness HEENT: Reports: no symptoms Cardiovascular: Reports: no symptoms Respiratory: Reports: cough, shortness of breath Gastrointestinal/Abdominal: Reports: no symptoms Genitourinary: Reports: no symptoms Neurologic/Psychiatric: Reports: no symptoms Endocrine: Reports: no symptoms Hematologic/Lymphatic: Reports: no symptoms Allergies: Coded Allergies: PENICILLINS (Verified Allergy, Intermediate, Rash, 09/01/19) Patient stated at this time All Systems: reviewed and negative except above Subjective no change. remain on nrb. very sob. no fevers. cxr- no improvement eating breakfast Objective Last 24 Hour Vital Signs Date Time Temp Pulse Resp B/P (MAP) Pulse Ox O2 Delivery O2 Flow Rate FiO2 09/19/19 04:00 Bi-pap 09/19/19 04:00 15.0 09/19/19 04:00 104 09/19/19 04:00 98.1 106 24 109/72 (84) 100 09/19/19 00:00 97.5 116 26 110/70 (83) 95 09/19/19 00:00 Bi-pap 09/19/19 00:00 115 09/19/19 00:00 100 09/18/19 23:41 112 26 98 Facial 100 09/18/19 20:00 Non-Rebreather 15.0 09/18/19 20:00 112 09/18/19 20:00 15.0 09/18/19 20:00 96.7 113 24 109/65 (80) 98 09/18/19 18:52 93 Non-Rebreather 15.0 100 09/18/19 17:07 108 24 99 Facial 100 09/18/19 16:00 15.0 09/18/19 16:00 Non-Rebreather 15.0 09/18/19 16:00 97.5 112 24 104/65 (78) 97 09/18/19 15:56 116 35 90 Facial 100 09/18/19 15:34 113 09/18/19 12:00 112 09/18/19 12:00 96.8 110 24 101/62 (75) 95 09/18/19 11:58 Non-Rebreather 15.0 09/18/19 11:57 15.0 Intake and Output 09/18/19 09/19/19 19:00 07:00 Intake Total 850 ml 515 ml Output Total 650 ml Balance 850 ml -135 ml Intake Oral 850 ml 240 ml IV Total 275 ml Output Urine Total 650 ml Laboratory Tests 09/19/19 04:14: White Blood Count 17.3H, Red Blood Count 2.55L, Hemoglobin 9.1L, Hematocrit 27.4L, Mean Corpuscular Volume 108H, Mean Corpuscular Hemoglobin 35.8H, Mean Corpuscular Hemoglobin Concent 33.3, Red Cell Distribution Width 14.2, Platelet Count 116L, Mean Platelet Volume 7.0, Neutrophils (%) (Auto) 69.7, Lymphocytes ( %) (Auto) 9.9L, Monocytes (%) (Auto) 7.0, Eosinophils (%) (Auto) 12.2H, Basophils (%) (Auto) 1.3 Height (Feet): 5 Height (Inches): 8.00 Weight (Pounds): 146 Objective General Appearance: WD/WN, lethargic. on bipap. Neck: supple Cardiovascular: regular rhythm Respiratory/Chest: lungs td rhonchi Abdomen: normal bowel sounds, non tender. small reducible periumbilical hernia Edema: no edema noted Arm (L), no edema noted Arm (R), no edema noted Leg (L), no edema noted Leg (R), no edema noted Pedal (L), no edema noted Pedal (R), no edema noted Generalized Henry Leavitt MD Sep 19, 2019 10:31
[2019-09-19 12:00] VITALS: BP 95/53
--- NOTE | 2019-09-19 13:04 | NUR ---
NURSE NOTES: Pt resting quietly in bed stable no complaints presented.
--- NOTE | 2019-09-19 13:13 | Pulmonology Progress Note ---
Assessment/Plan Assessment/Plan Impression - MRSA Pneumonia - Persistent leucocytosis - Hypoxic respiratory Failure - CHFpEF - Atrial Fibrillation - Cirrhosis, h/o ETOH Use, ascites s/p Paracentesis - Homeless - Enterobacter UTI s/p rx - Thrombocytopenia - Anasarca PLAN lasix bid keep negative and monitor steroid dcd BIPAP PRN on high flow oxygen at risk for intubation repeat CXR and assess need for VATS biopsy impression, plan, and exam edited and reviewed in detail care discussed with RN Subjective Allergies: Coded Allergies: PENICILLINS (Verified Allergy, Intermediate, Rash, 09/01/19) Patient stated at this time Subjective care noted saturations slightly better still on 100% Objective Last 24 Hour Vital Signs Date Time Temp Pulse Resp B/P (MAP) Pulse Ox O2 Delivery O2 Flow Rate FiO2 09/19/19 12:00 97.2 109 23 95/53 (67) 94 09/19/19 12:00 Bi-pap 09/19/19 12:00 15.0 09/19/19 09:20 95 Non-Rebreather 15.0 100 09/19/19 08:00 120 09/19/19 08:00 15.0 09/19/19 08:00 97.9 114 24 95/53 (67) 92 09/19/19 08:00 Bi-pap 09/19/19 04:00 Bi-pap 09/19/19 04:00 15.0 09/19/19 04:00 104 09/19/19 04:00 98.1 106 24 109/72 (84) 100 09/19/19 00:00 97.5 116 26 110/70 (83) 95 09/19/19 00:00 Bi-pap 09/19/19 00:00 115 09/19/19 00:00 100 09/18/19 23:41 112 26 98 Facial 100 09/18/19 20:00 Non-Rebreather 15.0 09/18/19 20:00 112 09/18/19 20:00 15.0 09/18/19 20:00 96.7 113 24 109/65 (80) 98 09/18/19 18:52 93 Non-Rebreather 15.0 100 09/18/19 17:07 108 24 99 Facial 100 09/18/19 16:00 15.0 09/18/19 16:00 Non-Rebreather 15.0 09/18/19 16:00 97.5 112 24 104/65 (78) 97 09/18/19 15:56 116 35 90 Facial 100 09/18/19 15:34 113 Intake and Output 09/18/19 09/19/19 19:00 07:00 Intake Total 850 ml 515 ml Output Total 650 ml Balance 850 ml -135 ml Intake Oral 850 ml 240 ml IV Total 275 ml Output Urine Total 650 ml Objective WDWN NAD reduced breath sounds bilaterally without rhonchi or wheeze [id number] without MRG NABS nontender no HSM some distention no CC some edema nonfocal Laboratory Tests 09/19/19 04:14: White Blood Count 17.3H, Red Blood Count 2.55L, Hemoglobin 9.1L, Hematocrit 27.4L, Mean Corpuscular Volume 108H, Mean Corpuscular Hemoglobin 35.8H, Mean Corpuscular Hemoglobin Concent 33.3, Red Cell Distribution Width 14.2, Platelet Count 116L, Mean Platelet Volume 7.0, Neutrophils (%) (Auto) 69.7, Lymphocytes ( %) (Auto) 9.9L, Monocytes (%) (Auto) 7.0, Eosinophils (%) (Auto) 12.2H, Basophils (%) (Auto) 1.3 Current Medications Medications (Trade) Dose Ordered Sig/Akash Route PRN Reason Start Time Stop Time Status Last Admin Dose Admin Acetaminophen (Tylenol) 650 mg Q4H PRN ORAL Mild Pain/Temp > 100.5 08/28/19 07:00 09/22/19 10:59 09/07/19 04:09 Diphenhydramine HCl (Benadryl) 25 mg Q6H PRN ORAL Itching 09/06/19 14:15 10/06/19 14:14 09/19/19 08:41 Furosemide (Lasix) 40 mg BID IV 09/15/19 18:00 10/06/19 08:59 09/19/19 08:41 Guaifenesin/ Dextromethorphan (Robitussin DM Syrup) 5 ml Q4H PRN ORAL For Cough 08/28/19 06:15 09/26/19 06:14 Heparin Sodium (Porcine) (Heparin 5000 units/ml) 5,000 units EVERY 12 HOURS SUBQ 08/29/19 09:30 09/28/19 09:29 09/19/19 08:44 Multivitamins (Multivitamins) 1 tab DAILY ORAL 08/28/19 09:00 09/22/19 08:59 09/19/19 08:41 Nicotine (Nicoderm) 1 patch Q24H TDERMAL 08/28/19 16:00 09/23/19 15:59 09/18/19 15:47 Ondansetron HCl (Zofran) 4 mg Q6H PRN IVP Nausea & Vomiting 08/28/19 09:30 09/22/19 03:29 Pantoprazole (Protonix) 40 mg DAILY ORAL 08/28/19 09:00 09/22/19 08:59 09/19/19 08:41 Spironolactone (Aldactone) 25 mg DAILY ORAL 08/28/19 09:00 09/24/19 08:59 09/19/19 08:41 Thiamine HCl (Vitamin B1) 100 mg DAILY ORAL 08/28/19 09:00 09/22/19 08:59 09/19/19 08:41 Vancomycin HCl (Vanco rx to dose) 1 ea DAILY PRN MISC Per rx protocol 09/11/19 11:00 10/11/19 10:59 Vancomycin HCl 750 mg/Dextrose 275 ml @ 183.333 mls/hr Q12H IVPB 09/15/19 09:00 09/20/19 08:59 09/19/19 08:52 Simon Lopez MD Sep 19, 2019 13:13
[2019-09-19] MEDS ORDERED: NS 275ml ONE (15:28)
[2019-09-19 16:00] VITALS: BP 96/57
--- NOTE | 2019-09-19 18:00 | NUR ---
NURSE NOTES: Pt stable noted no resp distress during the shift continue on NRB Mask .
--- NOTE | 2019-09-19 19:35 | NUR ---
NURSE NOTES: received patient from Adrian Shaver RN. patient is observed resting in bed, eyes open, AO X4, denies pain at this time. patient is on nonrebreather mask at 15 L/min; FiO2: 100%. tolerating well, no respiratory distress noted at this time. 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 no acute cardiac distress noted. LFA 18 g IV site is patent and intact, asymptomatic. bed in lowest position and locked, siderails up X2, call light within reach. will continue to monitor.
[2019-09-19 20:00] VITALS: BP 93/56
--- NOTE | 2019-09-19 20:05 | NUR ---
HAND-OFF: Report given to Jenny Morillo RN.
[2019-09-20] VITALS: BP 98/63
--- NOTE | 2019-09-20 02:00 | Progress Note ---
DATE: 09/18/2019 CARDIOLOGY PROGRESS NOTE Late entry. SUBJECTIVE: Remains with respiratory distress requiring non-rebreather mask and high flow oxygen. Still with congestion. Monitor, sinus tachycardia. PHYSICAL EXAMINATION: VITAL SIGNS: Blood pressure 101/62, heart rate 110, respirations 24, afebrile, oxygen saturation 95%. LUNGS: Diminished breath sounds. Rhonchi. CARDIAC: Irregular rhythm. Rapid rate. Normal S1, S2. ABDOMEN: Soft. EXTREMITIES: Trace edema. IMAGING: Chest x-ray yesterday revealed persisting interstitial and airspace disease with some component of edema. LABORATORY DATA: Sodium 137, potassium 3.6, BUN 14, creatinine 0.9, magnesium 1.5. Albumin 1.8. IMPRESSION: 1. Paroxysmal sinus tachycardia. 2. Healthcare-acquired pneumonia. 3. Hypoxia. 4. Acute on chronic systolic and diastolic congestive heart failure. 5. Chronic liver disease. 6. Hypomagnesemia. PLAN: 1. Antimicrobials. 2. Oxygenation. 3. BiPAP support if needed. 4. Diuresis. 5. IV magnesium. Ar Gomez M.D. DR: VANITA JOB#: [id number] CC:
--- NOTE | 2019-09-20 02:30 | Progress Note ---
DATE: 09/19/2019 CARDIOLOGY PROGRESS NOTE SUBJECTIVE: The patient remains with respiratory distress. Still short of breath. Refusing BiPAP on high flow oxygen mask. OBJECTIVE: VITAL SIGNS: Blood pressure 109/72, pulse 106, respiratory rate 24, afebrile. LUNGS: Accessory muscle use. Diminished breath sounds. Scattered rhonchi. CARDIAC: Regular rhythm. Rapid rate. Normal S1, S2. ABDOMEN: Soft. No edema. IMPRESSION: 1. Acute on chronic diastolic and systolic congestive heart failure. 2. Respiratory failure. 3. Pulmonary infiltrates. 4. Secondary sinus tachycardia. 5. Cirrhosis with end-stage liver disease. 6. Paroxysmal atrial fibrillation. PLAN: 1. Antimicrobials and oxygenation. Avoid positive fluid balance. 2. Diuresis with furosemide and Aldactone. 3. Remains critical and guarded. Ar Gomez M.D. DR: IVANA JOB#: [id number] CC:
[2019-09-20 04:00] VITALS: BP 110/66
[2019-09-20 04:55] LABS: BASOPHILS % (AUTO) 2.3 % (0.0-2.0); EOSINOPHILS % (AUTO) 13.1 % (0.0-3.0); HEMATOCRIT 28.1 % (42.0-52.0); HEMOGLOBIN 9.6 G/DL (14.2-18.0); LYMPHOCYTES % (AUTO) 12.1 % (20.0-45.0); MEAN CORPUSCULAR VOLUME 107 FL (80-99); MONOCYTES % (AUTO) 7.5 % (1.0-10.0); PLATELET COUNT 113 K/UL (150-450); RED BLOOD COUNT 2.64 M/UL (4.70-6.10); RED CELL DISTRIBUTION WIDTH 14.4 % (11.6-14.8); WHITE BLOOD COUNT 16.1 K/UL (4.8-10.8)
[2019-09-20 05:33] LABS: ALANINE AMINOTRANSFERASE 31 U/L (12-78); ALBUMIN 1.8 G/DL (3.4-5.0); ALBUMIN/GLOBULIN RATIO 0.4 (1.0-2.7); ALKALINE PHOSPHATASE 210 U/L (46-116); ANION GAP 1 mmol/L (5-15); ASPARTATE AMINO TRANSFERASE 46 U/L (15-37); BILIRUBIN,TOTAL 1.7 MG/DL (0.2-1.0); BLOOD UREA NITROGEN 16 mg/dL (7-18); CALCIUM 8.6 MG/DL (8.5-10.1); CARBON DIOXIDE 39 MMOL/L (21-32); CHLORIDE 98 MMOL/L (98-107); CREATININE 0.7 MG/DL (0.55-1.30); POTASSIUM 4.1 MMOL/L (3.5-5.1); SODIUM 137 MMOL/L (136-145)
[2019-09-20 05:39] LABS: BILIRUBIN,DIRECT 0.9 MG/DL (0.0-0.3)
--- NOTE | 2019-09-20 07:46 | NUR ---
HAND-OFF: Report given to Adrian Walton RN. patient is in stable condition.
[2019-09-20 08:00] VITALS: BP 107/63
--- NOTE | 2019-09-20 08:00 | NUR ---
NURSE NOTES: received pt in the bed, awake, alert, oriented, vital signs stable, no co pain, no SOB, pt on Non-rebreather mask, tolerate well, skin warm and dry to touch, intact, bed in low position, call light within reach.
--- NOTE | 2019-09-20 08:39 | Pulmonology Progress Note ---
Assessment/Plan Assessment/Plan Impression - MRSA Pneumonia - Persistent leucocytosis - Hypoxic respiratory Failure - CHFpEF - Atrial Fibrillation - Cirrhosis, h/o ETOH Use, ascites s/p Paracentesis - Homeless - Enterobacter UTI s/p rx - Thrombocytopenia - Anasarca PLAN lasix bid without help keep negative and monitor steroid off BIPAP on high flow oxygen at risk for intubation will call thoracic; he will need VATS biopsy and at risk of respiratory failure impression, plan, and exam edited and reviewed in detail care discussed with RN Subjective Allergies: Coded Allergies: PENICILLINS (Verified Allergy, Intermediate, Rash, 09/01/19) Patient stated at this time Subjective care noted saturations same BNP near normal still on 100% Objective Last 24 Hour Vital Signs Date Time Temp Pulse Resp B/P (MAP) Pulse Ox O2 Delivery O2 Flow Rate FiO2 09/20/19 07:06 92 Non-Rebreather 15.0 100 09/20/19 04:00 15.0 09/20/19 04:00 Bi-pap 09/20/19 04:00 104 09/20/19 04:00 97.1 104 22 110/66 (81) 97 09/20/19 00:00 97.5 111 22 98/63 (75) 95 09/20/19 00:00 107 09/20/19 00:00 Bi-pap 09/20/19 00:00 15.0 09/19/19 20:15 95 Non-Rebreather 15.0 100 09/19/19 20:00 Bi-pap 09/19/19 20:00 111 09/19/19 20:00 15.0 09/19/19 20:00 97.5 112 26 93/56 (68) 95 09/19/19 16:00 15.0 09/19/19 16:00 97.7 109 25 96/57 (70) 95 09/19/19 16:00 105 09/19/19 16:00 Bi-pap 09/19/19 12:00 97.2 109 23 95/53 (67) 94 09/19/19 12:00 112 09/19/19 12:00 Bi-pap 09/19/19 12:00 15.0 09/19/19 09:20 95 Non-Rebreather 15.0 100 Intake and Output 09/19/19 09/20/19 19:00 07:00 Intake Total 1080 ml 815 ml Output Total 1000 ml 650 ml Balance 80 ml 165 ml Intake Oral 1080 ml 240 ml IV Total 575 ml Output Urine Total 1000 ml 650 ml Objective WDWN NAD reduced breath sounds bilaterally without rhonchi or wheeze [id number] without MRG NABS nontender no HSM some distention no CC some edema nonfocal Laboratory Tests 09/20/19 03:10: White Blood Count 16.1H, Red Blood Count 2.64L, Hemoglobin 9.6L, Hematocrit 28.1L, Mean Corpuscular Volume 107H, Mean Corpuscular Hemoglobin 36.4H, Mean Corpuscular Hemoglobin Concent 34.2, Red Cell Distribution Width 14.4, Platelet Count 113L, Mean Platelet Volume 5.7L, Neutrophils (%) (Auto) 65.0, Lymphocytes (%) (Auto) 12.1L, Monocytes (%) (Auto) 7.5, Eosinophils (%) (Auto) 13.1H, Basophils (%) (Auto) 2.3H, Sodium Level 137, Potassium Level 4.1, Chloride Level 98, Carbon Dioxide Level 39H, Anion Gap 1L, Blood Urea Nitrogen 16, Creatinine 0.7, Estimat Glomerular Filtration Rate > 60, Glucose Level 102, Calcium Level 8.6, Total Bilirubin 1.7H, Direct Bilirubin 0.9H, Aspartate Amino Transf (AST/SGOT) 46H, Alanine Aminotransferase (ALT/SGPT) 31, Alkaline Phosphatase 210H, Pro-B-Type Natriuretic Peptide 285H, Total Protein 6.6, Albumin 1.8L, Globulin 4.8, Albumin/Globulin Ratio 0.4L Current Medications Medications (Trade) Dose Ordered Sig/Akash Route PRN Reason Start Time Stop Time Status Last Admin Dose Admin Acetaminophen (Tylenol) 650 mg Q4H PRN ORAL Mild Pain/Temp > 100.5 08/28/19 07:00 09/22/19 10:59 09/07/19 04:09 Diphenhydramine HCl (Benadryl) 25 mg Q6H PRN ORAL Itching 09/06/19 14:15 10/06/19 14:14 09/20/19 00:45 Furosemide (Lasix) 40 mg BID IV 09/15/19 18:00 10/06/19 08:59 09/19/19 17:10 Guaifenesin/ Dextromethorphan (Robitussin DM Syrup) 5 ml Q4H PRN ORAL For Cough 08/28/19 06:15 09/26/19 06:14 Heparin Sodium (Porcine) (Heparin 5000 units/ml) 5,000 units EVERY 12 HOURS SUBQ 08/29/19 09:30 09/28/19 09:29 09/19/19 21:36 Multivitamins (Multivitamins) 1 tab DAILY ORAL 08/28/19 09:00 09/22/19 08:59 09/19/19 08:41 Nicotine (Nicoderm) 1 patch Q24H TDERMAL 08/28/19 16:00 09/23/19 15:59 09/19/19 16:59 Ondansetron HCl (Zofran) 4 mg Q6H PRN IVP Nausea & Vomiting 08/28/19 09:30 09/22/19 03:29 Pantoprazole (Protonix) 40 mg DAILY ORAL 08/28/19 09:00 09/22/19 08:59 09/19/19 08:41 Spironolactone (Aldactone) 25 mg BID ORAL 09/20/19 09:00 10/20/19 08:59 Thiamine HCl (Vitamin B1) 100 mg DAILY ORAL 08/28/19 09:00 09/22/19 08:59 09/19/19 08:41 Vancomycin HCl (Vanco rx to dose) 1 ea DAILY PRN MISC Per rx protocol 09/11/19 11:00 10/11/19 10:59 Vancomycin HCl 750 mg/Dextrose 275 ml @ 183.333 mls/hr Q12H IVPB 09/15/19 09:00 09/20/19 08:59 09/19/19 21:35 Simon Lopez MD Sep 20, 2019 08:39
[2019-09-20] MEDS: Thiamine 100mg tab ORAL SCH (08:54)
[2019-09-20] MEDS: Spironolactone 25mg tab ORAL SCH ×2 (08:55→18:07)
[2019-09-20] MEDS: Heparin 5000 units/ml inj SUBQ SCH ×2 (08:56→21:31)
--- NOTE | 2019-09-20 10:16 | NUR ---
RADIOLOGY DEPT., CHEST X-RAY DONE.-P.DYE
--- NOTE | 2019-09-20 11:07 | Infectious Diseases Prog Note ---
Assessment/Plan Assessment/Plan antibiotics : vancomycin iv A 1. MRSA pneumonia s/p rx 2. respiratory failure 3. enterobacter UTI s/p rx 4. cirrhosis 5. ascites s/p paracentesis no SBP 6. thrombocytopenia 7. leucocytosis likely secondary to steroids improving P 1. d/c iv vancomycin 2. will follow up cultures Subjective ROS Limited/Unobtainable: Yes Constitutional: Denies: fever, chills Respiratory: Reports: shortness of breath - decreased, productive cough - decreased Gastrointestinal/Abdominal: Denies: nausea, vomiting, diarrhea Musculoskeletal: Denies: pain Allergies: Coded Allergies: PENICILLINS (Verified Allergy, Intermediate, Rash, 09/01/19) Patient stated at this time Objective Vital Signs Last 24 Hour Vital Signs Date Time Temp Pulse Resp B/P (MAP) Pulse Ox O2 Delivery O2 Flow Rate FiO2 09/20/19 09:00 Bi-pap 09/20/19 08:00 97.2 103 19 107/63 (78) 93 09/20/19 08:00 104 09/20/19 08:00 15.0 09/20/19 07:06 92 Non-Rebreather 15.0 100 09/20/19 04:00 15.0 09/20/19 04:00 Bi-pap 09/20/19 04:00 104 09/20/19 04:00 97.1 104 22 110/66 (81) 97 09/20/19 00:00 97.5 111 22 98/63 (75) 95 09/20/19 00:00 107 09/20/19 00:00 Bi-pap 09/20/19 00:00 15.0 09/19/19 20:15 95 Non-Rebreather 15.0 100 09/19/19 20:00 Bi-pap 09/19/19 20:00 111 09/19/19 20:00 15.0 09/19/19 20:00 97.5 112 26 93/56 (68) 95 09/19/19 16:00 15.0 09/19/19 16:00 97.7 109 25 96/57 (70) 95 09/19/19 16:00 105 09/19/19 16:00 Bi-pap 09/19/19 12:00 97.2 109 23 95/53 (67) 94 09/19/19 12:00 112 09/19/19 12:00 Bi-pap 09/19/19 12:00 15.0 Height (Feet): 5 Height (Inches): 8.00 Weight (Pounds): 142 Respiratory/Chest: lungs clear Cardiovascular: normal rate, regular rhythm, no gallop/murmur Abdomen: soft, non tender Extremities: no edema Laboratory Tests Test 09/20/19 03:10 White Blood Count 16.1 K/UL (4.8-10.8) H Red Blood Count 2.64 M/UL (4.70-6.10) L Hemoglobin 9.6 G/DL (14.2-18.0) L Hematocrit 28.1 % (42.0-52.0) L Mean Corpuscular Volume 107 FL (80-99) H Mean Corpuscular Hemoglobin 36.4 PG (27.0-31.0) H Mean Corpuscular Hemoglobin Concent 34.2 G/DL (32.0-36.0) Red Cell Distribution Width 14.4 % (11.6-14.8) Platelet Count 113 K/UL (150-450) L Mean Platelet Volume 5.7 FL (6.5-10.1) L Neutrophils (%) (Auto) 65.0 % (45.0-75.0) Lymphocytes (%) (Auto) 12.1 % (20.0-45.0) L Monocytes (%) (Auto) 7.5 % (1.0-10.0) Eosinophils (%) (Auto) 13.1 % (0.0-3.0) H Basophils (%) (Auto) 2.3 % (0.0-2.0) H Sodium Level 137 MMOL/L (136-145) Potassium Level 4.1 MMOL/L (3.5-5.1) Chloride Level 98 MMOL/L (98-107) Carbon Dioxide Level 39 MMOL/L (21-32) H Anion Gap 1 mmol/L (5-15) L Blood Urea Nitrogen 16 mg/dL (7-18) Creatinine 0.7 MG/DL (0.55-1.30) Estimat Glomerular Filtration Rate > 60 mL/min (>60) Glucose Level 102 MG/DL (74-106) Calcium Level 8.6 MG/DL (8.5-10.1) Total Bilirubin 1.7 MG/DL (0.2-1.0) H Direct Bilirubin 0.9 MG/DL (0.0-0.3) H Aspartate Amino Transf (AST/SGOT) 46 U/L (15-37) H Alanine Aminotransferase (ALT/SGPT) 31 U/L (12-78) Alkaline Phosphatase 210 U/L (46-116) H Pro-B-Type Natriuretic Peptide 285 pg/mL (0-125) H Total Protein 6.6 G/DL (6.4-8.2) Albumin 1.8 G/DL (3.4-5.0) L Globulin 4.8 g/dL Albumin/Globulin Ratio 0.4 (1.0-2.7) L Current Medications Medications (Trade) Dose Ordered Sig/Akash Route PRN Reason Start Time Stop Time Status Last Admin Dose Admin Acetaminophen (Tylenol) 650 mg Q4H PRN ORAL Mild Pain/Temp > 100.5 08/28/19 07:00 09/22/19 10:59 09/07/19 04:09 Diphenhydramine HCl (Benadryl) 25 mg Q6H PRN ORAL Itching 09/06/19 14:15 10/06/19 14:14 09/20/19 10:25 Furosemide (Lasix) 40 mg BID IV 09/15/19 18:00 10/06/19 08:59 09/20/19 08:54 Guaifenesin/ Dextromethorphan (Robitussin DM Syrup) 5 ml Q4H PRN ORAL For Cough 08/28/19 06:15 09/26/19 06:14 Heparin Sodium (Porcine) (Heparin 5000 units/ml) 5,000 units EVERY 12 HOURS SUBQ 08/29/19 09:30 09/28/19 09:29 09/20/19 08:56 Multivitamins (Multivitamins) 1 tab DAILY ORAL 08/28/19 09:00 09/22/19 08:59 09/20/19 08:54 Nicotine (Nicoderm) 1 patch Q24H TDERMAL 08/28/19 16:00 09/23/19 15:59 09/19/19 16:59 Ondansetron HCl (Zofran) 4 mg Q6H PRN IVP Nausea & Vomiting 08/28/19 09:30 09/22/19 03:29 Pantoprazole (Protonix) 40 mg DAILY ORAL 08/28/19 09:00 09/22/19 08:59 09/20/19 08:54 Spironolactone (Aldactone) 25 mg BID ORAL 09/20/19 09:00 10/20/19 08:59 09/20/19 08:55 Thiamine HCl (Vitamin B1) 100 mg DAILY ORAL 08/28/19 09:00 09/22/19 08:59 09/20/19 08:54 Vancomycin HCl (Vanco rx to dose) 1 ea DAILY PRN MISC Per rx protocol 09/11/19 11:00 10/11/19 10:59 Morena Erazo MD Sep 20, 2019 11:07
[2019-09-20 12:00] VITALS: BP 115/64
--- NOTE | 2019-09-20 13:56 | NUR ---
*-* INSURANCE *-* ALL AVAILABLE CLINICALS AND REVIEWS HAVE BEEN FAXED TO: [facility]: DEEPAK P- [phone] F- [phone]...........REVIEW/CLINICAL
--- NOTE | 2019-09-20 15:21 | NUR ---
NURSE NOTES: vital signs stable, no co pain, still on Non-rebreather mask, continue monitoring.
[2019-09-20 16:00] VITALS: BP 100/61
--- NOTE | 2019-09-20 16:42 | General Progress Note ---
Assessment/Plan Problem List: (1) AMS (altered mental status) ICD Codes: R41.82 - Altered mental status, unspecified SNOMED: 903623221 Status: stable Assessment/Plan: o2 bipap prn- currently refusing monitor cxr diuresis/keep dry critical and guarded ?ltach Subjective ROS Limited/Unobtainable: No Constitutional: Reports: malaise, weakness HEENT: Reports: no symptoms Cardiovascular: Reports: no symptoms Respiratory: Reports: cough, shortness of breath Gastrointestinal/Abdominal: Reports: no symptoms Genitourinary: Reports: no symptoms Neurologic/Psychiatric: Reports: no symptoms Endocrine: Reports: no symptoms Hematologic/Lymphatic: Reports: no symptoms Allergies: Coded Allergies: PENICILLINS (Verified Allergy, Intermediate, Rash, 09/01/19) Patient stated at this time All Systems: reviewed and negative except above Subjective no change. remain on nrb. very sob. no fevers. cxr- no improvement eating breakfast. no new complaints. Objective Last 24 Hour Vital Signs Date Time Temp Pulse Resp B/P (MAP) Pulse Ox O2 Delivery O2 Flow Rate FiO2 09/20/19 16:00 Bi-pap 09/20/19 16:00 15.0 09/20/19 12:00 Bi-pap 09/20/19 12:00 97.3 112 18 115/64 (81) 93 09/20/19 12:00 15.0 09/20/19 12:00 108 09/20/19 09:00 Bi-pap 09/20/19 08:00 97.2 103 19 107/63 (78) 93 09/20/19 08:00 104 09/20/19 08:00 15.0 09/20/19 07:06 92 Non-Rebreather 15.0 100 09/20/19 04:00 15.0 09/20/19 04:00 Bi-pap 09/20/19 04:00 104 09/20/19 04:00 97.1 104 22 110/66 (81) 97 09/20/19 00:00 97.5 111 22 98/63 (75) 95 09/20/19 00:00 107 09/20/19 00:00 Bi-pap 09/20/19 00:00 15.0 09/19/19 20:15 95 Non-Rebreather 15.0 100 09/19/19 20:00 Bi-pap 09/19/19 20:00 111 09/19/19 20:00 15.0 09/19/19 20:00 97.5 112 26 93/56 (68) 95 Intake and Output 09/19/19 09/20/19 19:00 07:00 Intake Total 1080 ml 815 ml Output Total 1000 ml 650 ml Balance 80 ml 165 ml Intake Oral 1080 ml 240 ml IV Total 575 ml Output Urine Total 1000 ml 650 ml Laboratory Tests 09/20/19 03:10: White Blood Count 16.1H, Red Blood Count 2.64L, Hemoglobin 9.6L, Hematocrit 28.1L, Mean Corpuscular Volume 107H, Mean Corpuscular Hemoglobin 36.4H, Mean Corpuscular Hemoglobin Concent 34.2, Red Cell Distribution Width 14.4, Platelet Count 113L, Mean Platelet Volume 5.7L, Neutrophils (%) (Auto) 65.0, Lymphocytes (%) (Auto) 12.1L, Monocytes (%) (Auto) 7.5, Eosinophils (%) (Auto) 13.1H, Basophils (%) (Auto) 2.3H, Sodium Level 137, Potassium Level 4.1, Chloride Level 98, Carbon Dioxide Level 39H, Anion Gap 1L, Blood Urea Nitrogen 16, Creatinine 0.7, Estimat Glomerular Filtration Rate > 60, Glucose Level 102, Calcium Level 8.6, Total Bilirubin 1.7H, Direct Bilirubin 0.9H, Aspartate Amino Transf (AST/SGOT) 46H, Alanine Aminotransferase (ALT/SGPT) 31, Alkaline Phosphatase 210H, Pro-B-Type Natriuretic Peptide 285H, Total Protein 6.6, Albumin 1.8L, Globulin 4.8, Albumin/Globulin Ratio 0.4L Height (Feet): 5 Height (Inches): 8.00 Weight (Pounds): 142 Objective General Appearance: WD/WN, lethargic. on bipap. Neck: supple Cardiovascular: regular rhythm Respiratory/Chest: lungs td rhonchi Abdomen: normal bowel sounds, non tender. small reducible periumbilical hernia Edema: no edema noted Arm (L), no edema noted Arm (R), no edema noted Leg (L), no edema noted Leg (R), no edema noted Pedal (L), no edema noted Pedal (R), no edema noted Generalized Henry Leavitt MD Sep 20, 2019 16:42
--- NOTE | 2019-09-20 19:23 | NUR ---
HAND-OFF: Report given to GIGI NAJERA,condition stable.
--- NOTE | 2019-09-20 19:24 | NUR ---
NURSE NOTES: Patient received from Corrine Quintanilla RN. Patient is aaox3, vss, with no acute distress. Patient is on playground monitor, non rebreather mask, IV on the left forearm 18g and is tolerating tx well. No skin issues to note. Pt is fully independent when using a urinal. Bed at its lowest positiin call ligh tin reach and x2 bed rails are up. Will continue to monitor.
[2019-09-20 20:00] VITALS: BP 103/64
--- NOTE | 2019-09-20 21:41 | NUR ---
NURSE NOTES: Nicotine patch removed from left shoulder. New patch dated and placed on patient's right shoulder.
--- NOTE | 2019-09-20 22:00 | Progress Note ---
DATE: 09/20/2019 CARDIOLOGY PROGRESS NOTE SUBJECTIVE: Condition remains tenuous. The patient is hypoxic requiring oxygen by non-rebreather mask. Chest x-ray reveals no improvement. OBJECTIVE: VITAL SIGNS: Blood pressure 115/64, pulse 112, respirations 18, and afebrile. Monitored rhythm, sinus tachycardia with atrial ectopics. LUNGS: Bilateral rales. CARDIAC: Regular rhythm, rapid rate. Normal S1, S2. ABDOMEN: Soft. EXTREMITIES: Trace edema. LABORATORY DATA: White count 16, hemoglobin 9.6. Sodium 137, potassium 4.1, bicarb 39, BUN 16, and creatinine 0.7. Magnesium was 1.5 on September 18. Pro-natriuretic peptide is decreased to 285. IMPRESSION: 1. Respiratory failure. 2. Acute on chronic diastolic congestive heart failure. 3. Pulmonary hypertension. 4. Nicotine dependence. 5. Substance abuse. 6. Hypomagnesemia. 7. Secondary sinus tachycardia. PLAN: 1. Magnesium replacement. 2. Continued diuresis at maintenance doses for now. 3. Antimicrobials. 4. Respiratory hygiene. 5. High flow oxygen. 6. DVT prophylaxis. 7. Watch for worsening metabolic alkalosis. 8. Increase nicotine dose. Ar Gomez M.D. DR: JACQUIE JOB#: [id number] CC:
[2019-09-21] VITALS: BP 101/67
--- NOTE | 2019-09-21 | Consultation ---
DATE OF CONSULTATION: 09/20/2019 CONSULTING PHYSICIAN: David Petersen M.D. REFERRING PHYSICIAN: Simon Lopez M.D. HISTORY OF PRESENT ILLNESS: The patient is a 59-year-old male who was admitted to [facility] with altered mental status. During the course of his hospitalization, the patient developed pneumonia and grew MRSA. He also developed ascites secondary to liver cirrhosis, which he underwent paracentesis. However, his respiratory status deteriorated and chest CT scan demonstrated bilateral upper lobe ground-glass opacification. Thoracic surgeon was then consulted for a lung biopsy. PAST MEDICAL HISTORY: Notable for: 1. Liver cirrhosis. 2. Anemia. PAST SURGICAL HISTORY: Notable for TIPS procedure. MEDICATIONS: Reviewed. ALLERGIES: The patient has allergies to penicillin. FAMILY AND SOCIAL HISTORY: The patient has a history of alcohol and tobacco use. There is no history of illicit drug use. The patient also noted to be homeless. PHYSICAL EXAMINATION: GENERAL: He is noted to be afebrile. VITALS SIGNS: Within normal limits. CARDIAC: Regular rate and rhythm. No gallops or murmurs. RESPIRATORY: Bilateral crackles are noted. ABDOMEN: Soft, nondistended, and nontender with normoactive bowel sounds. EXTREMITIES: Showed no evidence of cyanosis, clubbing, or edema. LABORATORY AND DIAGNOSTIC DATA: Laboratory study performed on 09/20/2019 showed WBC of 16, hemoglobin 9.6, hematocrit of 28, and platelet count of 113,000. Sodium is 137, potassium 4.1, chloride 98, bicarb 39, BUN 16, creatinine 0.7, and glucose greater than 60. Chest CT scan was performed on 09/14/2019, which showed extensive bilateral parenchymal disease with ground-glass opacification involving the upper lobes. There is extensive interstitial septal thickening involving the lower lobes as well as considerable atelectasis and confluent opacity. There is bronchiectasis and subpleural bilateral peripheral honeycomb pattern. There are bilateral small pleural effusion noted. ASSESSMENT AND PLAN: The patient is a 59-year-old male who was admitted to [facility] with deteriorating respiratory status requiring non-rebreather oxygen support. The patient was evaluated at bedside. After reviewing his clinical database, the patient is deemed not a candidate for video-assisted thoracoscopic surgery/lung biopsy since he will not be able to tolerate single lung ventilation. I want to thank you for referring this patient to my attention. If you have any questions in regard to this patient's clinical care, please do not hesitate to contact me. Domínguez M.D. DR: BIJAL JOB#: [id number] CC: MORRO
[2019-09-21 04:00] VITALS: BP 117/67
--- NOTE | 2019-09-21 05:44 | NUR ---
NURSE NOTES: Pt refuses to wear gown, pt states it is too hot and refuses bed bath. Pt is agitated and denies pain. Pt is in bed resting with TV on.
--- NOTE | 2019-09-21 07:18 | General Progress Note ---
Assessment/Plan Problem List: (1) AMS (altered mental status) ICD Codes: R41.82 - Altered mental status, unspecified SNOMED: 655996672 Status: stable Assessment/Plan: o2 bipap prn- currently refusing monitor cxr diuresis/keep dry not candidate for vats guarded ?ltach Subjective ROS Limited/Unobtainable: No Constitutional: Reports: malaise, weakness HEENT: Reports: no symptoms Cardiovascular: Reports: no symptoms Respiratory: Reports: cough, shortness of breath Gastrointestinal/Abdominal: Reports: no symptoms Genitourinary: Reports: no symptoms Neurologic/Psychiatric: Reports: no symptoms Endocrine: Reports: no symptoms Hematologic/Lymphatic: Reports: no symptoms Allergies: Coded Allergies: PENICILLINS (Verified Allergy, Intermediate, Rash, 09/01/19) Patient stated at this time All Systems: reviewed and negative except above Subjective no change. remain on nrb. stable sob. CTS input appreciated. Objective Last 24 Hour Vital Signs Date Time Temp Pulse Resp B/P (MAP) Pulse Ox O2 Delivery O2 Flow Rate FiO2 09/21/19 04:00 Non-Rebreather 15.0 09/21/19 04:00 107 09/21/19 04:00 15.0 09/21/19 04:00 97.3 107 24 117/67 (84) 95 09/21/19 00:00 97.4 102 27 101/67 (78) 98 09/21/19 00:00 Non-Rebreather 15.0 09/21/19 00:00 113 09/20/19 20:00 Non-Rebreather 15.0 09/20/19 20:00 97.4 112 27 103/64 (77) 96 09/20/19 20:00 109 09/20/19 20:00 15.0 09/20/19 19:33 94 Non-Rebreather 15.0 100 09/20/19 16:00 97.2 108 19 100/61 (74) 97 09/20/19 16:00 Bi-pap 09/20/19 16:00 15.0 09/20/19 16:00 113 09/20/19 12:00 Bi-pap 09/20/19 12:00 97.3 112 18 115/64 (81) 93 09/20/19 12:00 15.0 09/20/19 12:00 108 09/20/19 09:00 Bi-pap 09/20/19 08:00 97.2 103 19 107/63 (78) 93 09/20/19 08:00 104 09/20/19 08:00 15.0 Intake and Output 09/20/19 09/21/19 19:00 07:00 Intake Total 320 ml Output Total 1250 ml 800 ml Balance -930 ml -800 ml Intake Oral 320 ml Output Urine Total 1250 ml 800 ml # Bowel Movements 1 Height (Feet): 5 Height (Inches): 8.00 Weight (Pounds): 132 Objective General Appearance: WD/WN, lethargic. on bipap. Neck: supple Cardiovascular: regular rhythm Respiratory/Chest: lungs td rhonchi Abdomen: normal bowel sounds, non tender. small reducible periumbilical hernia Edema: no edema noted Arm (L), no edema noted Arm (R), no edema noted Leg (L), no edema noted Leg (R), no edema noted Pedal (L), no edema noted Pedal (R), no edema noted Generalized Henry Leavitt MD Sep 21, 2019 07:18
--- NOTE | 2019-09-21 07:20 | NUR ---
HAND-OFF: Report given to REINALDO Castle.
--- NOTE | 2019-09-21 07:22 | NUR ---
NURSE NOTES: Received report from Ubaldo Lowry RN. Patient resting in bed, awake , alert. No respiratory distress noted. Denies pain at this time. safety precautions in place. Bed lock, lowest position,call light within reach. Will continue to monitor.
[2019-09-21 08:00] VITALS: BP 114/65
--- NOTE | 2019-09-21 08:03 | Diagnostic Imaging Report ---
Indication: Shortness of breath Technique: One view of the chest Comparison: 09/17/2019 Findings: Bilateral interstitial and airspace edema versus infiltrates is unchanged. There is probably a small left pleural effusion. The heart size is normal. Embolic coils are again demonstrated in the left upper quadrant of the abdomen Impression: Unchanged, over one day, findings as above.
--- NOTE | 2019-09-21 08:24 | Pulmonology Progress Note ---
Assessment/Plan Assessment/Plan Impression - MRSA Pneumonia - Persistent leucocytosis - Hypoxic respiratory Failure - CHFpEF - Atrial Fibrillation - Cirrhosis, h/o ETOH Use, ascites s/p Paracentesis - Homeless - Enterobacter UTI s/p rx - Thrombocytopenia - Anasarca PLAN lasix bid keep negative and monitor steroid off BIPAP on high flow oxygen at risk for intubation at present, recommend elective intubation and bronchoscopy for wash in ICU to rule out infectious etiology may consider high dose steroids but previously not helpful prognosis very poor impression, plan, and exam edited and reviewed in detail care discussed with RN Subjective Allergies: Coded Allergies: PENICILLINS (Verified Allergy, Intermediate, Rash, 09/01/19) Patient stated at this time Subjective care noted saturations not improved not safe for VATS as will not tolerate single lung ventilation BNP near normal still on 100% Objective Last 24 Hour Vital Signs Date Time Temp Pulse Resp B/P (MAP) Pulse Ox O2 Delivery O2 Flow Rate FiO2 09/21/19 08:00 15.0 09/21/19 08:00 Non-Rebreather 15.0 09/21/19 08:00 97.3 110 20 114/65 (81) 91 09/21/19 04:00 Non-Rebreather 15.0 09/21/19 04:00 107 09/21/19 04:00 15.0 09/21/19 04:00 97.3 107 24 117/67 (84) 95 09/21/19 00:00 97.4 102 27 101/67 (78) 98 09/21/19 00:00 Non-Rebreather 15.0 09/21/19 00:00 113 09/20/19 20:00 Non-Rebreather 15.0 09/20/19 20:00 97.4 112 27 103/64 (77) 96 09/20/19 20:00 109 09/20/19 20:00 15.0 09/20/19 19:33 94 Non-Rebreather 15.0 100 09/20/19 16:00 97.2 108 19 100/61 (74) 97 09/20/19 16:00 Bi-pap 09/20/19 16:00 15.0 09/20/19 16:00 113 09/20/19 12:00 Bi-pap 09/20/19 12:00 97.3 112 18 115/64 (81) 93 09/20/19 12:00 15.0 09/20/19 12:00 108 09/20/19 09:00 Bi-pap Intake and Output 09/20/19 09/21/19 19:00 07:00 Intake Total 320 ml Output Total 1250 ml 800 ml Balance -930 ml -800 ml Intake Oral 320 ml Output Urine Total 1250 ml 800 ml # Bowel Movements 1 Objective WDWN NAD reduced breath sounds bilaterally without rhonchi or wheeze [id number] without MRG NABS nontender no HSM some distention no CC some edema nonfocal Current Medications Medications (Trade) Dose Ordered Sig/Akash Route PRN Reason Start Time Stop Time Status Last Admin Dose Admin Acetaminophen (Tylenol) 650 mg Q4H PRN ORAL Mild Pain/Temp > 100.5 08/28/19 07:00 09/22/19 10:59 09/07/19 04:09 Diphenhydramine HCl (Benadryl) 25 mg Q6H PRN ORAL Itching 09/06/19 14:15 10/06/19 14:14 09/21/19 01:38 Furosemide (Lasix) 40 mg EVERY 12 HOURS ORAL 09/21/19 09:00 10/21/19 08:59 Guaifenesin/ Dextromethorphan (Robitussin DM Syrup) 5 ml Q4H PRN ORAL For Cough 08/28/19 06:15 09/26/19 06:14 Heparin Sodium (Porcine) (Heparin 5000 units/ml) 5,000 units EVERY 12 HOURS SUBQ 08/29/19 09:30 09/28/19 09:29 09/20/19 21:31 Multivitamins (Multivitamins) 1 tab DAILY ORAL 08/28/19 09:00 09/22/19 08:59 09/20/19 08:54 Nicotine (Nicoderm) 1 patch Q24H TDERMAL 09/20/19 21:00 10/20/19 20:59 09/20/19 21:30 Ondansetron HCl (Zofran) 4 mg Q6H PRN IVP Nausea & Vomiting 08/28/19 09:30 09/22/19 03:29 Pantoprazole (Protonix) 40 mg DAILY ORAL 08/28/19 09:00 09/22/19 08:59 09/20/19 08:54 Spironolactone (Aldactone) 25 mg BID ORAL 09/20/19 09:00 10/20/19 08:59 09/20/19 18:07 Thiamine HCl (Vitamin B1) 100 mg DAILY ORAL 08/28/19 09:00 09/22/19 08:59 09/20/19 08:54 Simon Lopez MD Sep 21, 2019 08:24
[2019-09-21] MEDS: Heparin 5000 units/ml inj SUBQ SCH ×2 (09:00→20:07)
[2019-09-21] MEDS: Spironolactone 25mg tab ORAL SCH ×2 (09:07→18:01)
[2019-09-21] MEDS: Thiamine 100mg tab ORAL SCH (09:07)
[2019-09-21] MEDS: Furosemide 40mg tab ORAL SCH ×2 (09:09→20:14)
--- NOTE | 2019-09-21 10:58 | Infectious Diseases Prog Note ---
Assessment/Plan Assessment/Plan IMPRESSION: 1. MRSA pneumonia, treated 2. Enterobacter UTI that was treated. 3. Cirrhosis with ascites. 4. MRSA colonization. 5. Anemia. 6. Thrombocytopenia. 7. Hypokalemia corrected 8. Hypercapnic respiratory failure. 9. Leukocytosis RECOMMENDATIONS: Observe off antibiotic F/U CBC Subjective ROS Limited/Unobtainable: No Constitutional: Reports: no symptoms Respiratory: Reports: shortness of breath, dry cough Gastrointestinal/Abdominal: Reports: no symptoms Genitourinary: Reports: no symptoms Allergies: Coded Allergies: PENICILLINS (Verified Allergy, Intermediate, Rash, 09/01/19) Patient stated at this time Objective Vital Signs Last 24 Hour Vital Signs Date Time Temp Pulse Resp B/P (MAP) Pulse Ox O2 Delivery O2 Flow Rate FiO2 09/21/19 08:17 90 Non-Rebreather 15.0 100 09/21/19 08:00 15.0 09/21/19 08:00 111 09/21/19 08:00 Non-Rebreather 15.0 09/21/19 08:00 97.3 110 20 114/65 (81) 91 09/21/19 04:00 Non-Rebreather 15.0 09/21/19 04:00 107 09/21/19 04:00 15.0 09/21/19 04:00 97.3 107 24 117/67 (84) 95 09/21/19 00:00 97.4 102 27 101/67 (78) 98 09/21/19 00:00 Non-Rebreather 15.0 09/21/19 00:00 113 09/20/19 20:00 Non-Rebreather 15.0 09/20/19 20:00 97.4 112 27 103/64 (77) 96 09/20/19 20:00 109 09/20/19 20:00 15.0 09/20/19 19:33 94 Non-Rebreather 15.0 100 09/20/19 16:00 97.2 108 19 100/61 (74) 97 09/20/19 16:00 Bi-pap 09/20/19 16:00 15.0 09/20/19 16:00 113 09/20/19 12:00 Bi-pap 09/20/19 12:00 97.3 112 18 115/64 (81) 93 09/20/19 12:00 15.0 1/6/20 12:00 108 Height (Feet): 5 Height (Inches): 8.00 Weight (Pounds): 132 General Appearance: no acute distress HEENT: mucous membranes moist Respiratory/Chest: other - few rhonchi, oxygen by rebreathing mask Cardiovascular: tachycardia Abdomen: soft, non tender Extremities: no edema Neurologic/Psychiatric: alert, oriented x 3, responsive Current Medications Medications (Trade) Dose Ordered Sig/Akash Route PRN Reason Start Time Stop Time Status Last Admin Dose Admin Acetaminophen (Tylenol) 650 mg Q4H PRN ORAL Mild Pain/Temp > 100.5 08/28/19 07:00 09/22/19 10:59 09/07/19 04:09 Diphenhydramine HCl (Benadryl) 25 mg Q6H PRN ORAL Itching 09/06/19 14:15 10/06/19 14:14 09/21/19 09:17 Furosemide (Lasix) 40 mg EVERY 12 HOURS ORAL 09/21/19 09:00 10/21/19 08:59 09/21/19 09:09 Guaifenesin/ Dextromethorphan (Robitussin DM Syrup) 5 ml Q4H PRN ORAL For Cough 08/28/19 06:15 09/26/19 06:14 Heparin Sodium (Porcine) (Heparin 5000 units/ml) 5,000 units EVERY 12 HOURS SUBQ 08/29/19 09:30 09/28/19 09:29 09/20/19 21:31 Multivitamins (Multivitamins) 1 tab DAILY ORAL 08/28/19 09:00 09/22/19 08:59 09/21/19 09:07 Nicotine (Nicoderm) 1 patch Q24H TDERMAL 09/20/19 21:00 10/20/19 20:59 09/20/19 21:30 Ondansetron HCl (Zofran) 4 mg Q6H PRN IVP Nausea & Vomiting 08/28/19 09:30 09/22/19 03:29 Pantoprazole (Protonix) 40 mg DAILY ORAL 08/28/19 09:00 09/22/19 08:59 09/21/19 09:07 Spironolactone (Aldactone) 25 mg BID ORAL 09/20/19 09:00 10/20/19 08:59 09/21/19 09:07 Thiamine HCl (Vitamin B1) 100 mg DAILY ORAL 08/28/19 09:00 09/22/19 08:59 09/21/19 09:07 Jamie Swanson MD Sep 21, 2019 10:58
--- NOTE | 2019-09-21 11:27 | NUR ---
CASE MANAGEMENT: REVIEW 09/21/2019 SI: TOXIC ENCEPHALOPATHY. T 97.3 HR 110 RR 20 B/P 114/65 SATS 91% ON 15L/NRB FIO2 100 LABS: NONE IS: LASIX PO Q12H ALDACTONE PO BID PROTONIX PO QD STEP DOWN STATUS
--- NOTE | 2019-09-21 11:35 | NUR ---
*-* INSURANCE *-* ALL AVAILABLE CLINICALS AND REVIEWS HAVE BEEN FAXED TO: [facility]: DEEPAK P- [phone] F- [phone]...........REVIEW/CLINICAL
[2019-09-21 12:00] VITALS: BP 103/60
--- NOTE | 2019-09-21 14:00 | NUR ---
NURSE NOTES: pt resting, no co pain, still on Non-rebreather mask, continue monitoring.
[2019-09-21 16:00] VITALS: BP 108/65
--- NOTE | 2019-09-21 19:21 | NUR ---
HAND-OFF: Report given to ROSEMARY NAJERA,CONDITION STABLE.
--- NOTE | 2019-09-21 19:27 | NUR ---
NURSE NOTES: Received report from REINALDO Castle, pt. in bed awake- A/O x's4- able to make needs known, no signs or symptoms of acute cardiac or respiratory distress noted, bed alarm on, side rails up x's3 and safety brakes engaged, pt. appears to be sating well on non-rebreather at 15L- no distress noted, pt has call light within easy reach, urinal is at bedside and within easy reach, LFA 18G- IV intact and patent, safety measures continued, will continue with plan of care.
[2019-09-21 20:00] VITALS: BP 106/58
[2019-09-22] VITALS: BP 108/63
--- NOTE | 2019-09-22 03:17 | NUR ---
HAND-OFF: Report given to Obdulia RN- pt. remains stable and no signs of distress noted.
--- NOTE | 2019-09-22 03:30 | Progress Note ---
DATE: 09/21/2019 CARDIOLOGY PROGRESS NOTE SUBJECTIVE: The patient remains on intermittent BiPAP support, frequently now refusing a mask, seen by CT surgeon, felt not to be a candidate for VATS procedure. OBJECTIVE: VITAL SIGNS: Blood pressure 117/67, pulse 107, respiratory rate 24, afebrile. Monitor sinus tachycardia. LUNGS: Bilateral breath sounds. Accessory muscle use. Rales and rhonchi. CARDIAC: Regular rhythm, rapid rate. ABDOMEN: Soft. EXTREMITIES: No edema. IMPRESSION: 1. Respiratory failure. 2. Interstitial lung disease. 3. Secondary sinus tachycardia. 4. Hypoxia. 5. Acute on chronic diastolic congestive heart failure. 6. Paroxysmal atrial fibrillation. PLAN: 1. Plan of care reviewed. 2. Continue as is. 3. Limited options. 4. Prognosis is poor. 5. Diuresis to be adjusted based on daily clinical assessment. Ar Gomez M.D. DR: DORIAN JOB#: [id number] CC:
[2019-09-22 04:00] VITALS: BP 106/62
--- NOTE | 2019-09-22 07:30 | NUR ---
HAND-OFF: Report given to REINALDO Walton.
--- NOTE | 2019-09-22 07:32 | NUR ---
NURSE NOTES: Received report from Obdulia NAJERA. Patient resting in bed. No signs of distress. No respiratory distress noted. safety precautions in place. Bed lock. lowest position. Call light within reach. Will continue to monitor patient.
--- NOTE | 2019-09-22 07:39 | General Progress Note ---
Assessment/Plan Problem List: (1) AMS (altered mental status) ICD Codes: R41.82 - Altered mental status, unspecified SNOMED: 349669605 Status: stable Assessment/Plan: o2 bipap prn- currently refusing monitor cxr diuresis/keep dry not candidate for vats possible bronch per pulm guarded ?ltach Subjective ROS Limited/Unobtainable: No Constitutional: Reports: malaise, weakness HEENT: Reports: no symptoms Cardiovascular: Reports: no symptoms Respiratory: Reports: cough, shortness of breath Gastrointestinal/Abdominal: Reports: no symptoms Genitourinary: Reports: no symptoms Neurologic/Psychiatric: Reports: no symptoms Endocrine: Reports: no symptoms Hematologic/Lymphatic: Reports: no symptoms Allergies: Coded Allergies: PENICILLINS (Verified Allergy, Intermediate, Rash, 09/01/19) Patient stated at this time All Systems: reviewed and negative except above Subjective no change. remain on nrb. stable sob. CTS input appreciated. pulm noted, bronc and elective intubation recommended Objective Last 24 Hour Vital Signs Date Time Temp Pulse Resp B/P (MAP) Pulse Ox O2 Delivery O2 Flow Rate FiO2 09/22/19 04:00 109 09/22/19 04:00 Non-Rebreather 15.0 09/22/19 04:00 15.0 09/22/19 04:00 98.0 111 24 106/62 (77) 98 09/22/19 00:00 97.5 113 24 108/63 (78) 94 09/22/19 00:00 Non-Rebreather 15.0 09/22/19 00:00 15.0 09/21/19 23:34 117 09/21/19 20:00 Non-Rebreather 15.0 09/21/19 20:00 15.0 09/21/19 20:00 97.7 119 24 106/58 (74) 95 09/21/19 19:35 98 Non-Rebreather 15.0 100 09/21/19 19:25 111 09/21/19 16:00 Non-Rebreather 15.0 09/21/19 16:00 97.7 110 22 108/65 (79) 95 09/21/19 16:00 116 09/21/19 16:00 15.0 09/21/19 12:00 Non-Rebreather 15.0 09/21/19 12:00 15.0 09/21/19 12:00 97.0 114 20 103/60 (74) 99 09/21/19 12:00 112 09/21/19 08:17 90 Non-Rebreather 15.0 100 09/21/19 08:00 15.0 09/21/19 08:00 111 09/21/19 08:00 Non-Rebreather 15.0 09/21/19 08:00 97.3 110 20 114/65 (81) 91 Intake and Output 09/21/19 09/22/19 19:00 07:00 Intake Total 400 ml 240 ml Output Total 1250 ml 1950 ml Balance -850 ml -1710 ml Intake Oral 400 ml 240 ml Output Urine Total 1250 ml 1950 ml # Bowel Movements 1 Height (Feet): 5 Height (Inches): 8.00 Weight (Pounds): 132 Objective General Appearance: WD/WN, lethargic. on bipap. Neck: supple Cardiovascular: regular rhythm Respiratory/Chest: lungs td rhonchi Abdomen: normal bowel sounds, non tender. small reducible periumbilical hernia Edema: no edema noted Arm (L), no edema noted Arm (R), no edema noted Leg (L), no edema noted Leg (R), no edema noted Pedal (L), no edema noted Pedal (R), no edema noted Generalized Henry Leavitt MD Sep 22, 2019 07:39
[2019-09-22 08:00] VITALS: BP 107/66
[2019-09-22] MEDS: Spironolactone 25mg tab ORAL SCH ×2 (08:58→17:29)
[2019-09-22] MEDS: Thiamine 100mg tab ORAL SCH (08:59)
[2019-09-22] MEDS: Furosemide 40mg tab ORAL SCH ×2 (09:03→20:25)
[2019-09-22] MEDS: Heparin 5000 units/ml inj SUBQ SCH ×2 (09:07→20:26)
--- NOTE | 2019-09-22 10:40 | NUR ---
RD ASSESSMENT & RECOMMENDATIONS SEE CARE ACTIVITY FOR COMPLETE ASSESSMENT DAILY ESTIMATED NEEDS: Needs based on Liver, Pulmonary 72.2kg 25-30 kcals/kg 0348-5726 total kcals 1-1.5 g protein/kg 72-108 g total protein Fluid per MD NUTRITION DIAGNOSIS: * Decreased sodium and fat needs r/t clinical status, ascites, as evidenced by s/p paracentesis, elev LFT's, elev T bili * Swallowing difficulty R/T dysphagia, respiratory status as [facility] texture, mostly on BIPAP, on non-rebreather during meals. CURRENT DIET: Cardiac, mech soft finely chopped PO DIET RECOMMENDATIONS: Low Fat/ Low Na diet / texture per INSTANT POTATO PROCESSOR ADDITIONAL RECOMMENDATIONS: 1) Obtain daily standing weight for accuracy or calibrated bedscale wt current bedscale wt 136lbs vs EMR wt 148lbs vs initial bedscale wt 158lbs 2) Ensure Enlive TID w/ meals (350kcal/20g prot) 3) Continue thiamine/ MVI 4) Monitor lytes daily w/ diuretics, replete as needed (K low) 5) INSTANT POTATO PROCESSOR RE-EVAL FOR POSSIBLE DIET TEXTURE UPGRADE -> PT CURRENTLY W/ POOR PO INTAKE
--- NOTE | 2019-09-22 10:58 | Infectious Diseases Prog Note ---
Assessment/Plan Assessment/Plan antibiotics : none A 1. MRSA pneumonia s/p rx 2. respiratory failure 3. enterobacter UTI s/p rx 4. cirrhosis 5. ascites s/p paracentesis no SBP 6. thrombocytopenia 7. leucocytosis likely secondary to steroids improving P 1. observe off antibiotics 2. will follow up clinically Subjective Constitutional: Denies: fever, chills Respiratory: Denies: shortness of breath, dry cough Gastrointestinal/Abdominal: Denies: nausea, vomiting, diarrhea Musculoskeletal: Denies: pain Allergies: Coded Allergies: PENICILLINS (Verified Allergy, Intermediate, Rash, 09/01/19) Patient stated at this time Objective Vital Signs Last 24 Hour Vital Signs Date Time Temp Pulse Resp B/P (MAP) Pulse Ox O2 Delivery O2 Flow Rate FiO2 09/22/19 10:07 93 Non-Rebreather 15.0 100 09/22/19 08:00 Non-Rebreather 15.0 09/22/19 08:00 15.0 09/22/19 08:00 118 09/22/19 08:00 97.3 112 24 107/66 (80) 94 09/22/19 04:00 109 09/22/19 04:00 Non-Rebreather 15.0 09/22/19 04:00 15.0 09/22/19 04:00 98.0 111 24 106/62 (77) 98 09/22/19 00:00 97.5 113 24 108/63 (78) 94 09/22/19 00:00 Non-Rebreather 15.0 09/22/19 00:00 15.0 09/21/19 23:34 117 09/21/19 20:00 Non-Rebreather 15.0 09/21/19 20:00 15.0 09/21/19 20:00 97.7 119 24 106/58 (74) 95 09/21/19 19:35 98 Non-Rebreather 15.0 100 09/21/19 19:25 111 09/21/19 16:00 Non-Rebreather 15.0 09/21/19 16:00 97.7 110 22 108/65 (79) 95 09/21/19 16:00 116 09/21/19 16:00 15.0 09/21/19 12:00 Non-Rebreather 15.0 1/7/20 12:00 15.0 09/21/19 12:00 97.0 114 20 103/60 (74) 99 09/21/19 12:00 112 Height (Feet): 5 Height (Inches): 8.00 Weight (Pounds): 130 Respiratory/Chest: lungs clear Cardiovascular: normal rate, regular rhythm, no gallop/murmur Abdomen: soft, non tender Extremities: no edema Current Medications Medications (Trade) Dose Ordered Sig/Akash Route PRN Reason Start Time Stop Time Status Last Admin Dose Admin Acetaminophen (Tylenol) 650 mg Q4H PRN ORAL Mild Pain/Temp > 100.5 08/28/19 07:00 09/22/19 10:59 09/07/19 04:09 Diphenhydramine HCl (Benadryl) 25 mg Q6H PRN ORAL Itching 09/06/19 14:15 10/06/19 14:14 09/22/19 04:42 Furosemide (Lasix) 40 mg EVERY 12 HOURS ORAL 09/21/19 09:00 10/21/19 08:59 09/22/19 09:03 Guaifenesin/ Dextromethorphan (Robitussin DM Syrup) 5 ml Q4H PRN ORAL For Cough 08/28/19 06:15 09/26/19 06:14 Heparin Sodium (Porcine) (Heparin 5000 units/ml) 5,000 units EVERY 12 HOURS SUBQ 08/29/19 09:30 09/28/19 09:29 09/22/19 09:07 Multivitamins (Multivitamins) 1 tab DAILY ORAL 09/22/19 09:00 10/22/19 08:59 09/22/19 08:58 Nicotine (Nicoderm) 1 patch Q24H TDERMAL 09/20/19 21:00 10/20/19 20:59 09/21/19 20:12 Pantoprazole (Protonix) 40 mg ACBREAKFAST ORAL 09/22/19 09:00 10/22/19 08:59 09/22/19 08:59 Spironolactone (Aldactone) 25 mg BID ORAL 09/20/19 09:00 10/20/19 08:59 09/22/19 08:58 Thiamine HCl (Vitamin B1) 100 mg DAILY ORAL 09/22/19 09:00 10/22/19 08:59 09/22/19 08:59 Morena Erazo MD Sep 22, 2019 10:58
[2019-09-22 12:00] VITALS: BP 135/72
--- NOTE | 2019-09-22 13:35 | Pulmonology Progress Note ---
Assessment/Plan Assessment/Plan Impression - MRSA Pneumonia - Persistent leucocytosis - Hypoxic respiratory Failure - CHFpEF - Atrial Fibrillation - Cirrhosis, h/o ETOH Use, ascites s/p Paracentesis - Homeless - Enterobacter UTI s/p rx - Thrombocytopenia - Anasarca PLAN lasix bid keep negative and monitor steroid off BIPAP - refusing on high flow oxygen at risk for intubation at present, recommend elective intubation and bronchoscopy for wash in ICU to rule out infectious etiology d/w with primary may consider high dose steroids but previously not helpful prognosis very poor impression, plan, and exam edited and reviewed in detail care discussed with RN Subjective Allergies: Coded Allergies: PENICILLINS (Verified Allergy, Intermediate, Rash, 09/01/19) Patient stated at this time Subjective care noted saturations not improved not safe for VATS as will not tolerate single lung ventilation BNP near normal still on 100% Objective Last 24 Hour Vital Signs Date Time Temp Pulse Resp B/P (MAP) Pulse Ox O2 Delivery O2 Flow Rate FiO2 09/22/19 12:00 Non-Rebreather 15.0 09/22/19 12:00 108 09/22/19 12:00 97.9 115 28 135/72 (93) 94 09/22/19 12:00 15.0 09/22/19 10:07 93 Non-Rebreather 15.0 100 09/22/19 08:00 Non-Rebreather 15.0 09/22/19 08:00 15.0 09/22/19 08:00 118 09/22/19 08:00 97.3 112 24 107/66 (80) 94 09/22/19 04:00 109 09/22/19 04:00 Non-Rebreather 15.0 09/22/19 04:00 15.0 09/22/19 04:00 98.0 111 24 106/62 (77) 98 09/22/19 00:00 97.5 113 24 108/63 (78) 94 09/22/19 00:00 Non-Rebreather 15.0 09/22/19 00:00 15.0 09/21/19 23:34 117 09/21/19 20:00 Non-Rebreather 15.0 09/21/19 20:00 15.0 09/21/19 20:00 97.7 119 24 106/58 (74) 95 09/21/19 19:35 98 Non-Rebreather 15.0 100 09/21/19 19:25 111 09/21/19 16:00 Non-Rebreather 15.0 09/21/19 16:00 97.7 110 22 108/65 (79) 95 09/21/19 16:00 116 09/21/19 16:00 15.0 Intake and Output 09/21/19 09/22/19 19:00 07:00 Intake Total 400 ml 240 ml Output Total 1250 ml 1950 ml Balance -850 ml -1710 ml Intake Oral 400 ml 240 ml Output Urine Total 1250 ml 1950 ml # Bowel Movements 1 Objective WDWN NAD reduced breath sounds bilaterally without rhonchi or wheeze [id number] without MRG NABS nontender no HSM some distention no CC some edema nonfocal Current Medications Medications (Trade) Dose Ordered Sig/Akash Route PRN Reason Start Time Stop Time Status Last Admin Dose Admin Diphenhydramine HCl (Benadryl) 25 mg Q6H PRN ORAL Itching 09/06/19 14:15 10/06/19 14:14 09/22/19 04:42 Furosemide (Lasix) 40 mg EVERY 12 HOURS ORAL 09/21/19 09:00 10/21/19 08:59 09/22/19 09:03 Guaifenesin/ Dextromethorphan (Robitussin DM Syrup) 5 ml Q4H PRN ORAL For Cough 08/28/19 06:15 09/26/19 06:14 Heparin Sodium (Porcine) (Heparin 5000 units/ml) 5,000 units EVERY 12 HOURS SUBQ 08/29/19 09:30 09/28/19 09:29 09/22/19 09:07 Multivitamins (Multivitamins) 1 tab DAILY ORAL 09/22/19 09:00 10/22/19 08:59 09/22/19 08:58 Nicotine (Nicoderm) 1 patch Q24H TDERMAL 09/20/19 21:00 10/20/19 20:59 09/21/19 20:12 Pantoprazole (Protonix) 40 mg ACBREAKFAST ORAL 09/22/19 09:00 10/22/19 08:59 09/22/19 08:59 Spironolactone (Aldactone) 25 mg BID ORAL 09/20/19 09:00 10/20/19 08:59 09/22/19 08:58 Thiamine HCl (Vitamin B1) 100 mg DAILY ORAL 09/22/19 09:00 10/22/19 08:59 09/22/19 08:59 Simon Lopez MD Sep 22, 2019 13:35
--- NOTE | 2019-09-22 14:51 | NUR ---
NURSE NOTES: pt resting, no co pain, vital signs stable, inserted new Heplock on RT AC #20, continue monitoring.
--- NOTE | 2019-09-22 15:31 | NUR ---
ST NOTES: REFERRED FOR SWALLOW EVAL BY DR WOODS, SEE FULL REPORT. DYSPHAGIA RISK FACTORS FOR THIS 49 Y.O.M.: ACUTE AMS PER MD suspect toxic metabolic encephalopathy secondary to PCP. Cannot rule out some component of a mild UTI, cannot rule out hepatic encephalopathy. PER CXR 09/20/19: Bilateral interstitial and airspace edema versus infiltrates is unchanged.There is probably a small left pleural effusion. H/O BACK PAIN (ONLY WITH 90 DEGREE ANGLE OK WITH 70 DEGREE) FROM FALL 2 YEARS AGO. HIATAL HERNIA PER PATIENT. NO POLST/AD REGARDING TUBE FEEDING PREFERENCES IF NEEDS BUT WANTS TO EAT/DRINK REGULAR TEXTURE FOOD AND REFUSING MECH CHOPPED FOODS. PRIOR TO ADMIT ON REGULAR DIET TEXTURE AND THIN LIQUIDS. PER PT OCC PROBLEMS WITH THIN BUT UNCLEAR WHEN THIS STARTED. ALERT AND ABLE TO EXPRESS NEEDS WITH GOOD VOICE QUALITY NOW SINCE INITIAL EVALUATION. INITIAL IMPRESSIONS: GROSSLY FUNCTIONAL SWALLOW WITH THIN LIQUIDS ONE SIP AT A TIME VIA STRAW AND PUREED TSP W/O OVERT ASPIRATION NOR INCREASE IN RESP RATE. HE HAS A HIGH ASPIRATION RISK DUE TO PROBLEMS WITH SWALLOWING AND RESPIRATORY COORDINATION ESPECIALLY WHEN TAKING SEQUENTIAL SIPS OF THIN LIQUID AND WHEN CHEWING MASTICATED SOLIDS (FOR 10 SECONDS). IF HE DOES NOT TAKE ONE SIP AT A TIME OR REST WHEN SOB (HIS BASELINE RR WILL GO FROM 20-24/28 UP TO 40 OR 44 BPM WHEN ON THE NON-REBREATHER WITH 15 LITERS. SAFEST IF RESP RATE DOES NOT GO ABOVE 25 BPM SINCE THERE IS A PREVALENCE OF INCREASED ASPIRATION WITH RR ABOVE 25. QUESTIONABLE SILENT ASPIRATION RISK RECOMMENDATIONS: SINCE PATIENT IS REFUSING CHOPPED FOODS, CONTINUE WITH PO INTAKE BUT UPGRADE TO SOFT CHEW DIET ONLY IF HE IS STRICTLY SUPERVISED TO MAKE SURE HE TAKES SMALL BITES OF CHEWABLE SOLIDS AND ONE SIP OF THIN LIQUIDS AND RESTS WHEN SOB OR RESP RATE GOES ABOVE 25 BPM. CONTINUE WITH ENSURE ENLIVE TID AND CONSIDER DIET TYPE CHANGE TO LOWFAT AND LOW NA PER RD RECOMMENDATIONS. CONSIDER MODIFIED BARIUM SWALLOW STUDY WHEN STABLE TO FURTHER ASSESS SWALLOW, DETERMINE SILENT ASPIRATION RISK, AND ATTEMPT TRIAL TX TECHNIQUES. CONTINUE WITH SKILLED DYSPHAGIA MANAGEMENT AND TX AND FURTHER ASSESS WHEN PATIENT IS SWALLOW AND TRAIN TO SWALLOW WHEN EXHALING TO REDUCE CHANCES OF ASPIRATION PARTICULARLY WITH THIN LIQUIDS. EXPLORE FUTURE USE OF EMST BREATHING THERAPY WITH PATIENT WHEN OFF NON-REBREATHER. D/W REINALDO JACKSON AND LEFT MESSAGE WITH DR WOODS D/W RD WHO SAYS PATIENT IS REFUSING FINELY CHOPPED FOODS
[2019-09-22 16:00] VITALS: BP 114/60
--- NOTE | 2019-09-22 18:58 | NUR ---
HAND-OFF: Report given to ROSEMARY NAJERA, no distress at this time.
--- NOTE | 2019-09-22 19:10 | NUR ---
NURSE NOTES: Received report from REINALDO Castle, pt. in bed awake- A/O x's4- able to make needs known, no signs or symptoms of acute cardiac or respiratory distress noted, bed alarm on, side rails up x's3 and safety brakes engaged, pt. appears to be sating well on non-rebreather at 15L- no distress noted, pt has call light within easy reach, urinal is at bedside and within easy reach, pt. appears to be comfortable watching television, RAC 20G- IV intact and patent, safety measures continued, will continue with plan of care.
[2019-09-22 20:00] VITALS: BP 103/60
[2019-09-22] MEDS: Solu-MEDROL 125mg Inj IVP SCH (20:25)
[2019-09-23] VITALS: BP 110/65
[2019-09-23 04:00] VITALS: BP 107/60
--- NOTE | 2019-09-23 07:21 | NUR ---
HAND-OFF: Report given to Corrine Shaver, RN, pt. remains stable and no distress noted.
--- NOTE | 2019-09-23 07:25 | NUR ---
NURSE NOTES: Report received from Tricia RN.Pt awake at this time noted no resp distress on 100% NRB mask,denies any c/o discomfort or pain S-Tach on the monitor,skin warm and dry,IV HL to RAC intact,voids per urinal ,SR up x2 HOB elevated,bed lock in lowest position will continue with plans of care.
--- NOTE | 2019-09-23 07:42 | General Progress Note ---
Assessment/Plan Problem List: (1) AMS (altered mental status) ICD Codes: R41.82 - Altered mental status, unspecified SNOMED: 994299535 Status: stable Assessment/Plan: o2 bipap prn- currently refusing monitor cxr diuresis/keep dry not candidate for vats possible bronch per pulm guarded ?ltach Subjective ROS Limited/Unobtainable: No Constitutional: Reports: malaise, weakness HEENT: Reports: no symptoms Cardiovascular: Reports: no symptoms Respiratory: Reports: cough, shortness of breath Gastrointestinal/Abdominal: Reports: no symptoms Genitourinary: Reports: no symptoms Neurologic/Psychiatric: Reports: no symptoms Endocrine: Reports: no symptoms Hematologic/Lymphatic: Reports: anemia Allergies: Coded Allergies: PENICILLINS (Verified Allergy, Intermediate, Rash, 09/01/19) Patient stated at this time All Systems: reviewed and negative except above Subjective no change. still with sob. requires NRB mask. no labs today Objective Last 24 Hour Vital Signs Date Time Temp Pulse Resp B/P (MAP) Pulse Ox O2 Delivery O2 Flow Rate FiO2 09/23/19 04:00 15.0 09/23/19 04:00 97.9 113 24 107/60 (76) 94 09/23/19 04:00 Non-Rebreather 15.0 09/23/19 03:41 112 09/23/19 00:00 15.0 09/23/19 00:00 98.0 116 28 110/65 (80) 95 09/23/19 00:00 Non-Rebreather 15.0 09/22/19 23:25 115 09/22/19 20:00 98.2 118 26 103/60 (74) 94 09/22/19 20:00 Non-Rebreather 15.0 09/22/19 20:00 15.0 09/22/19 19:08 116 09/22/19 19:07 95 Non-Rebreather 15.0 100 09/22/19 16:00 15.0 09/22/19 16:00 117 09/22/19 16:00 97.7 118 30 114/60 (78) 96 09/22/19 16:00 Non-Rebreather 15.0 09/22/19 12:00 Non-Rebreather 15.0 09/22/19 12:00 108 09/22/19 12:00 97.9 115 28 135/72 (93) 94 09/22/19 12:00 15.0 09/22/19 10:07 93 Non-Rebreather 15.0 100 09/22/19 08:00 Non-Rebreather 15.0 09/22/19 08:00 15.0 09/22/19 08:00 118 09/22/19 08:00 97.3 112 24 107/66 (80) 94 Intake and Output 09/22/19 09/23/19 19:00 07:00 Intake Total 350 ml Output Total 870 ml 1250 ml Balance -520 ml -1250 ml Intake Oral 350 ml Output Urine Total 870 ml 1250 ml Height (Feet): 5 Height (Inches): 8.00 Weight (Pounds): 141 General Appearance: WD/WN, alert Neck: supple Cardiovascular: normal rate Respiratory/Chest: chest wall non-tender, lungs clear, normal breath sounds, no respiratory distress Abdomen: normal bowel sounds, non tender, soft, no organomegaly Edema: no edema noted Arm (L), no edema noted Arm (R), no edema noted Leg (L), no edema noted Leg (R), no edema noted Pedal (L), no edema noted Pedal (R), no edema noted Generalized Objective General Appearance: WD/WN, lethargic. on bipap. Neck: supple Cardiovascular: regular rhythm Respiratory/Chest: lungs td rhonchi Abdomen: normal bowel sounds, non tender. small reducible periumbilical hernia Edema: no edema noted Arm (L), no edema noted Arm (R), no edema noted Leg (L), no edema noted Leg (R), no edema noted Pedal (L), no edema noted Pedal (R), no edema noted Generalized Henry Leavitt MD Sep 23, 2019 07:42
[2019-09-23 08:00] VITALS: BP 108/60
[2019-09-23] MEDS: Spironolactone 25mg tab ORAL SCH ×2 (08:33→17:44)
[2019-09-23] MEDS: Solu-MEDROL 125mg Inj IVP SCH ×2 (08:33→20:57)
[2019-09-23] MEDS: Furosemide 40mg tab ORAL SCH ×2 (08:33→20:58)
[2019-09-23] MEDS: Thiamine 100mg tab ORAL SCH (08:34)
[2019-09-23] MEDS: Heparin 5000 units/ml inj SUBQ SCH ×2 (08:36→20:57)
--- NOTE | 2019-09-23 08:41 | Pulmonology Progress Note ---
Assessment/Plan Assessment/Plan Impression - MRSA Pneumonia - Persistent leucocytosis - Hypoxic respiratory Failure - CHFpEF - Atrial Fibrillation - Cirrhosis, h/o ETOH Use, ascites s/p Paracentesis - Homeless - Enterobacter UTI s/p rx - Thrombocytopenia - Anasarca PLAN lasix bid keep negative and monitor steroid off BIPAP - refusing on high flow oxygen at risk for intubation at present, recommend elective intubation and bronchoscopy for wash in ICU to rule out infectious etiology d/w with primary may consider high dose steroids but previously not helpful prognosis very poor impression, plan, and exam edited and reviewed in detail care discussed with RN Subjective Allergies: Coded Allergies: PENICILLINS (Verified Allergy, Intermediate, Rash, 09/01/19) Patient stated at this time Subjective care noted saturations not improved not safe for VATS as will not tolerate single lung ventilation BNP near normal still on 100% Objective Last 24 Hour Vital Signs Date Time Temp Pulse Resp B/P (MAP) Pulse Ox O2 Delivery O2 Flow Rate FiO2 09/23/19 04:00 15.0 09/23/19 04:00 97.9 113 24 107/60 (76) 94 09/23/19 04:00 Non-Rebreather 15.0 09/23/19 03:41 112 09/23/19 00:00 15.0 09/23/19 00:00 98.0 116 28 110/65 (80) 95 09/23/19 00:00 Non-Rebreather 15.0 09/22/19 23:25 115 09/22/19 20:00 98.2 118 26 103/60 (74) 94 09/22/19 20:00 Non-Rebreather 15.0 09/22/19 20:00 15.0 09/22/19 19:08 116 09/22/19 19:07 95 Non-Rebreather 15.0 100 09/22/19 16:00 15.0 09/22/19 16:00 117 09/22/19 16:00 97.7 118 30 114/60 (78) 96 09/22/19 16:00 Non-Rebreather 15.0 09/22/19 12:00 Non-Rebreather 15.0 09/22/19 12:00 108 09/22/19 12:00 97.9 115 28 135/72 (93) 94 09/22/19 12:00 15.0 09/22/19 10:07 93 Non-Rebreather 15.0 100 Intake and Output 09/22/19 09/23/19 19:00 07:00 Intake Total 350 ml Output Total 870 ml 1250 ml Balance -520 ml -1250 ml Intake Oral 350 ml Output Urine Total 870 ml 1250 ml Objective WDWN NAD reduced breath sounds bilaterally without rhonchi or wheeze [id number] without MRG NABS nontender no HSM some distention no CC some edema nonfocal Current Medications Medications (Trade) Dose Ordered Sig/Akash Route PRN Reason Start Time Stop Time Status Last Admin Dose Admin Diphenhydramine HCl (Benadryl) 25 mg Q6H PRN ORAL Itching 09/06/19 14:15 10/06/19 14:14 09/23/19 05:36 Furosemide (Lasix) 40 mg EVERY 12 HOURS ORAL 09/21/19 09:00 10/21/19 08:59 09/23/19 08:33 Guaifenesin/ Dextromethorphan (Robitussin DM Syrup) 5 ml Q4H PRN ORAL For Cough 08/28/19 06:15 09/26/19 06:14 Heparin Sodium (Porcine) (Heparin 5000 units/ml) 5,000 units EVERY 12 HOURS SUBQ 08/29/19 09:30 09/28/19 09:29 09/23/19 08:36 Methylprednisolone Sodium Succinate (Solu-MEDROL) 60 mg EVERY 12 HOURS IVP 09/22/19 21:00 10/22/19 20:59 09/23/19 08:33 Multivitamins (Multivitamins) 1 tab DAILY ORAL 09/22/19 09:00 10/22/19 08:59 09/23/19 08:34 Nicotine (Nicoderm) 1 patch Q24H TDERMAL 09/20/19 21:00 10/20/19 20:59 09/22/19 20:24 Pantoprazole (Protonix) 40 mg ACBREAKFAST ORAL 09/22/19 09:00 10/22/19 08:59 09/23/19 05:36 Spironolactone (Aldactone) 25 mg BID ORAL 09/20/19 09:00 10/20/19 08:59 09/23/19 08:33 Thiamine HCl (Vitamin B1) 100 mg DAILY ORAL 09/22/19 09:00 10/22/19 08:59 09/23/19 08:34 Simon Lopez MD Sep 23, 2019 08:41
--- NOTE | 2019-09-23 10:27 | NUR ---
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 SW met w/ pt at his bedside. Pt presents as A&O4x and cooperative. Pt stated he was residing at a medical facility near [facility]. Pt was unable to provide the name/address of the facility. Pt's address on the facesheet is noted [place] [address] [place] [address], which is showing as the [facility] motel. Pt currently denies homelessness. Pt informed SW that he will return to the facility he was previously at. SW is unable to verify such facility at this time. Pt declined a placement assistance offered by SW. Pt is , has no child, and does not have contact w/ his . Pt receives General Relief (appx$220/mo) and food stamp. Pt is the self-payee of his income and the primary decision maker. Pt provided an emergency contact: Blake Vilchis (friend) [phone]. Pt does not have any family in contact but reports he receives excellent social support from various friends. SW reviewed SUB/TOB use hx w/ pt. Pt denies using tobacco. Pt reports he occasionally uses THC and drinks ETOH. Pt declined counseling/tx intervention/resource on SUB abuse. PT reports he does not have AD but he is willing to receive the full code. Pt states he is ambulatory, does not have any DME. Pt states it would be great to have a cane. Pt states he is able to provide self-care including, dressing, bathing, and grooming by self w/o any assistance. Signed: 09/23/19 at 1041 by REENA SCHAFER <Co-Signature Required>
[2019-09-23 12:00] VITALS: BP 108/60
--- NOTE | 2019-09-23 12:06 | NUR ---
*-* INSURANCE *-* ALL AVAILABLE CLINICALS AND REVIEWS HAVE BEEN FAXED TO: [facility] REESE: DEEPAK P- [phone] F- [phone]...........REVIEW/CLINICAL
--- NOTE | 2019-09-23 12:38 | Infectious Diseases Prog Note ---
Assessment/Plan Assessment/Plan IMPRESSION: 1. MRSA pneumonia, treated 2. Enterobacter UTI that was treated. 3. Cirrhosis with ascites. 4. MRSA colonization. 5. Anemia. 6. Thrombocytopenia. 7. Hypokalemia corrected 8. Hypercapnic respiratory failure. 9. Leukocytosis, steroid related RECOMMENDATIONS: Observe off antibiotic Subjective ROS Limited/Unobtainable: No Respiratory: Reports: shortness of breath, productive cough Gastrointestinal/Abdominal: Reports: no symptoms Genitourinary: Reports: no symptoms Allergies: Coded Allergies: PENICILLINS (Verified Allergy, Intermediate, Rash, 09/01/19) Patient stated at this time Objective Vital Signs Last 24 Hour Vital Signs Date Time Temp Pulse Resp B/P (MAP) Pulse Ox O2 Delivery O2 Flow Rate FiO2 09/23/19 12:00 Non-Rebreather 15.0 09/23/19 12:00 15.0 100 09/23/19 08:00 112 09/23/19 08:00 15.0 100 09/23/19 08:00 Non-Rebreather 15.0 09/23/19 08:00 97.5 111 24 108/60 (76) 94 09/23/19 04:00 15.0 09/23/19 04:00 97.9 113 24 107/60 (76) 94 09/23/19 04:00 Non-Rebreather 15.0 09/23/19 03:41 112 09/23/19 00:00 15.0 09/23/19 00:00 98.0 116 28 110/65 (80) 95 09/23/19 00:00 Non-Rebreather 15.0 09/22/19 23:25 115 09/22/19 20:00 98.2 118 26 103/60 (74) 94 09/22/19 20:00 Non-Rebreather 15.0 09/22/19 20:00 15.0 09/22/19 19:08 116 09/22/19 19:07 95 Non-Rebreather 15.0 100 09/22/19 16:00 15.0 09/22/19 16:00 117 09/22/19 16:00 97.7 118 30 114/60 (78) 96 09/22/19 16:00 Non-Rebreather 15.0 Height (Feet): 5 Height (Inches): 8.00 Weight (Pounds): 141 General Appearance: no acute distress HEENT: mucous membranes moist Respiratory/Chest: decreased breath sounds, other - oxygen by rebreathing mask Cardiovascular: normal rate Abdomen: soft, non tender Extremities: no edema Neurologic/Psychiatric: alert, oriented x 3, responsive Current Medications Medications (Trade) Dose Ordered Sig/Akash Route PRN Reason Start Time Stop Time Status Last Admin Dose Admin Diphenhydramine HCl (Benadryl) 25 mg Q6H PRN ORAL Itching 09/06/19 14:15 10/06/19 14:14 09/23/19 05:36 Furosemide (Lasix) 40 mg EVERY 12 HOURS ORAL 09/21/19 09:00 10/21/19 08:59 09/23/19 08:33 Guaifenesin/ Dextromethorphan (Robitussin DM Syrup) 5 ml Q4H PRN ORAL For Cough 08/28/19 06:15 09/26/19 06:14 Heparin Sodium (Porcine) (Heparin 5000 units/ml) 5,000 units EVERY 12 HOURS SUBQ 08/29/19 09:30 09/28/19 09:29 09/23/19 08:36 Methylprednisolone Sodium Succinate (Solu-MEDROL) 60 mg EVERY 12 HOURS IVP 09/22/19 21:00 10/22/19 20:59 09/23/19 08:33 Multivitamins (Multivitamins) 1 tab DAILY ORAL 09/22/19 09:00 10/22/19 08:59 09/23/19 08:34 Nicotine (Nicoderm) 1 patch Q24H TDERMAL 09/20/19 21:00 10/20/19 20:59 09/22/19 20:24 Pantoprazole (Protonix) 40 mg ACBREAKFAST ORAL 09/22/19 09:00 10/22/19 08:59 09/23/19 05:36 Spironolactone (Aldactone) 25 mg BID ORAL 09/20/19 09:00 10/20/19 08:59 09/23/19 08:33 Thiamine HCl (Vitamin B1) 100 mg DAILY ORAL 09/22/19 09:00 10/22/19 08:59 09/23/19 08:34 Jamie Swanson MD Sep 23, 2019 12:38
--- NOTE | 2019-09-23 13:00 | NUR ---
NURSE NOTES: Pt stable noted no resp distress,denies any c/o discomfort.
--- NOTE | 2019-09-23 15:37 | NUR ---
CASE MANAGEMENT:REVIEW SI;ALTERED MENTAL STATUS. TOXIC ENCEPHALOPATHY. 97.5 116 28 107/60 94% 15L HIGH FLOW NRB LABS - NONE IS;SOLU-MEDROL IV Q12HRS LASIX PO Q12HRS ALDACTONE PO BID HEPARIN SUBQ Q12HRS PROTONIX PO QS SDU STATUS PLAN OF CARE; BI-PAP PRN DIURESIS O2 SUPPORT
[2019-09-23 16:00] VITALS: BP 94/53
--- NOTE | 2019-09-23 19:05 | NUR ---
NURSE NOTES: Pt report received from RENETTA Boss RN ARA. pt is alert and oriented times 4 able to follow commands. pt is on radiation monitor showing NSR - ST, no cardiac distress noted. pt is on non rebreather, satting at 94%, NO RESP DISTRESS NOTED. pt bed is low, locked, armed, call light within reach, bed rails up times 3, will follow plan of care.
--- NOTE | 2019-09-23 19:10 | NUR ---
HAND-OFF: Report given to Jin Bautista RN.
[2019-09-23 20:00] VITALS: BP 103/60
[2019-09-24] VITALS: BP 119/66
--- NOTE | 2019-09-24 01:15 | Progress Note ---
DATE: 09/22/2019 CARDIOLOGY PROGRESS NOTE Late entry for 09/22/2019. SUBJECTIVE: Remains on non-rebreather mask. Slightly less short of breath. Better oral intake tolerated. OBJECTIVE: VITAL SIGNS: Blood pressure 106/62, pulse 111, respiratory rate 24. LUNGS: Bilateral breath sounds, rales. HEART: Regular rhythm. Rapid rate. Normal S1, S2. ABDOMEN: Soft. EXTREMITIES: No edema. Monitored sinus tachycardia. IMPRESSION: 1. Respiratory failure. 2. Hypomagnesemia. 3. Severe protein-calorie malnutrition. 4. Acute on chronic diastolic congestive heart failure better compensated. 5. Bronchiectasis. PLAN: 1. Continue oxygen and respiratory hygiene. 2. Replace electrolytes as needed. 3. Protein supplement. 4. DVT prophylaxis. 5. Follow up laboratory studies. Ar Gomez M.D. DR: IVANA JOB#: [id number] CC:
--- NOTE | 2019-09-24 01:45 | Progress Note ---
DATE: 09/23/2019 CARDIOLOGY PROGRESS NOTE SUBJECTIVE: Less distress, respiratory distress. Still on high-flow oxygen mask. OBJECTIVE: LUNGS: Bilateral breath sounds. Rhonchi. CARDIAC: Regular rhythm. Rapid rate. Normal S1, S2. ABDOMEN: Soft. EXTREMITIES: Trace edema. IMPRESSION: 1. CHF, better compensated. 2. Hypomagnesemia. 3. Bronchiectasis. 4. Respiratory failure. 5. Severe hypoxia. 6. Severe protein-calorie malnutrition. 7. Remains very high risk. PLAN: 1. Recheck lab studies. 2. Respiratory hygiene. 3. Oxygen titration. 4. Titration of diuretic regimen. 5. DVT prophylaxis. 6. Protein supplement. Ar Gomez M.D. DR: SIMA JOB#: [id number] CC:
[2019-09-24 04:00] VITALS: BP 102/68
[2019-09-24 05:24] LABS: HEMATOCRIT 27.8 % (42.0-52.0); HEMOGLOBIN 9.4 G/DL (14.2-18.0); MEAN CORPUSCULAR VOLUME 106 FL (80-99); PLATELET COUNT 143 K/UL (150-450); RED BLOOD COUNT 2.63 M/UL (4.70-6.10); RED CELL DISTRIBUTION WIDTH 14.1 % (11.6-14.8); WHITE BLOOD COUNT 17.9 K/UL (4.8-10.8)
[2019-09-24 06:00] LABS: ALANINE AMINOTRANSFERASE 24 U/L (12-78); ALBUMIN/GLOBULIN RATIO 0.4 (1.0-2.7); ALKALINE PHOSPHATASE 160 U/L (46-116); ANION GAP 2 mmol/L (5-15); ASPARTATE AMINO TRANSFERASE 35 U/L (15-37); BILIRUBIN,TOTAL 1.2 MG/DL (0.2-1.0); BLOOD UREA NITROGEN 20 mg/dL (7-18); CALCIUM 8.9 MG/DL (8.5-10.1); CHLORIDE 95 MMOL/L (98-107); POTASSIUM 3.8 MMOL/L (3.5-5.1); SODIUM 139 MMOL/L (136-145)
[2019-09-24 06:18] LABS: CARBON DIOXIDE 44 MMOL/L (21-32)
[2019-09-24 06:19] LABS: BILIRUBIN,DIRECT 0.8 MG/DL (0.0-0.3)
--- NOTE | 2019-09-24 07:09 | NUR ---
HAND-OFF: Report given to RENETTA Boss SDU RN. Pt remains stable. endorsed to report AM labs to MD WOODS as MD is making rounds in hospital.
--- NOTE | 2019-09-24 07:10 | NUR ---
NURSE NOTES: Report received from Jin Bautista RN.Pt resting in bed awake,alert oriented in no resp distress,with NRB mask ,O2 sat 95%,denies any c/o pain or discomfort,S-Tach on the monitor,voids per urinal,skin warm and dry ,IV heplock to RAC intact ,SR up x2 bed lock in lowest position,will continue with plans of care.
[2019-09-24 08:00] VITALS: BP 102/62
--- NOTE | 2019-09-24 08:30 | Pulmonology Progress Note ---
Assessment/Plan Assessment/Plan Impression - MRSA Pneumonia - Persistent leucocytosis - Hypoxic respiratory Failure - CHFpEF - Atrial Fibrillation - Cirrhosis, h/o ETOH Use, ascites s/p Paracentesis - Homeless - Enterobacter UTI s/p rx - Thrombocytopenia - Anasarca PLAN lasix bid keep negative and monitor steroid off BIPAP - refusing on high flow oxygen at risk for intubation at present, recommend elective intubation and bronchoscopy for wash in ICU to rule out infectious etiology d/w with primary steroids with overall improvement in oxygen saturation; will monitor closely prognosis very poor impression, plan, and exam edited and reviewed in detail care discussed with RN Subjective Allergies: Coded Allergies: PENICILLINS (Verified Allergy, Intermediate, Rash, 09/01/19) Patient stated at this time Subjective care noted saturations improved not safe for VATS as will not tolerate single lung ventilation BNP near normal still on 100% Objective Last 24 Hour Vital Signs Date Time Temp Pulse Resp B/P (MAP) Pulse Ox O2 Delivery O2 Flow Rate FiO2 09/24/19 04:00 112 09/24/19 04:00 Non-Rebreather 15.0 09/24/19 04:00 98.1 111 21 102/68 (79) 99 09/24/19 04:00 15.0 100 09/24/19 00:00 15.0 100 09/24/19 00:00 Non-Rebreather 15.0 09/24/19 00:00 115 09/24/19 00:00 98.4 113 21 119/66 (83) 98 09/23/19 20:00 98.7 109 22 103/60 (74) 99 09/23/19 20:00 Non-Rebreather 15.0 09/23/19 20:00 15.0 100 09/23/19 19:23 97 Non-Rebreather 15.0 100 09/23/19 16:00 98.1 112 24 94/53 (67) 98 09/23/19 16:00 15.0 100 09/23/19 16:00 Non-Rebreather 15.0 09/23/19 12:00 Non-Rebreather 15.0 09/23/19 12:00 98.0 110 25 108/60 (76) 95 09/23/19 12:00 108 09/23/19 12:00 15.0 100 Intake and Output 09/23/19 09/24/19 19:00 07:00 Intake Total 1040 ml Output Total 301 ml Balance 739 ml Intake Oral 1040 ml Output Urine Total 300 ml Stool Total 1 ml # Bowel Movements 1 Objective WDWN NAD reduced breath sounds bilaterally without rhonchi or wheeze [id number] without MRG NABS nontender no HSM some distention no CC some edema nonfocal Laboratory Tests 09/24/19 03:05: White Blood Count 17.9H, Red Blood Count 2.63L, Hemoglobin 9.4L, Hematocrit 27.8L, Mean Corpuscular Volume 106H, Mean Corpuscular Hemoglobin 35.7H, Mean Corpuscular Hemoglobin Concent 33.8, Red Cell Distribution Width 14.1, Platelet Count 143L, Mean Platelet Volume 6.8, Neutrophils (%) (Auto) , Lymphocytes (%) ( Auto) , Monocytes (%) (Auto) , Eosinophils (%) (Auto) , Basophils (%) (Auto) , Neutrophils % (Manual) [Pending], Lymphocytes % (Manual) [Pending], Platelet Estimate [Pending], Platelet Morphology [Pending], Sodium Level 139, Potassium Level 3.8, Chloride Level 95L, Carbon Dioxide Level 44*H, Anion Gap 2L, Blood Urea Nitrogen 20H, Creatinine 1.0, Estimat Glomerular Filtration Rate > 60, Glucose Level 145H, Calcium Level 8.9, Magnesium Level 1.8, Total Bilirubin 1.2H , Direct Bilirubin 0.8H, Aspartate Amino Transf (AST/SGOT) 35, Alanine Aminotransferase (ALT/SGPT) 24, Alkaline Phosphatase 160H, Pro-B-Type Natriuretic Peptide 286H, Total Protein 7.3, Albumin 2.0L, Globulin 5.3, Albumin /Globulin Ratio 0.4L Current Medications Medications (Trade) Dose Ordered Sig/Akash Route PRN Reason Start Time Stop Time Status Last Admin Dose Admin Diphenhydramine HCl (Benadryl) 25 mg Q6H PRN ORAL Itching 09/06/19 14:15 10/06/19 14:14 09/24/19 05:53 Furosemide (Lasix) 40 mg EVERY 12 HOURS ORAL 09/21/19 09:00 10/21/19 08:59 09/23/19 20:58 Guaifenesin/ Dextromethorphan (Robitussin DM Syrup) 5 ml Q4H PRN ORAL For Cough 08/28/19 06:15 09/26/19 06:14 Heparin Sodium (Porcine) (Heparin 5000 units/ml) 5,000 units EVERY 12 HOURS SUBQ 08/29/19 09:30 09/28/19 09:29 09/23/19 20:57 Methylprednisolone Sodium Succinate (Solu-MEDROL) 60 mg EVERY 12 HOURS IVP 09/22/19 21:00 10/22/19 20:59 09/23/19 20:57 Multivitamins (Multivitamins) 1 tab DAILY ORAL 09/22/19 09:00 10/22/19 08:59 09/23/19 08:34 Nicotine (Nicoderm) 1 patch Q24H TDERMAL 09/20/19 21:00 10/20/19 20:59 09/23/19 20:58 Pantoprazole (Protonix) 40 mg ACBREAKFAST ORAL 09/22/19 09:00 10/22/19 08:59 09/24/19 05:53 Spironolactone (Aldactone) 25 mg BID ORAL 09/20/19 09:00 10/20/19 08:59 09/23/19 17:44 Thiamine HCl (Vitamin B1) 100 mg DAILY ORAL 09/22/19 09:00 10/22/19 08:59 09/23/19 08:34 Simon Lopez MD Sep 24, 2019 08:30
[2019-09-24] MEDS: Furosemide 40mg tab ORAL SCH (09:00)
[2019-09-24] MEDS: Spironolactone 25mg tab ORAL SCH ×2 (09:00→18:17)
[2019-09-24] MEDS: Thiamine 100mg tab ORAL SCH (09:00)
[2019-09-24] MEDS: Solu-MEDROL 125mg Inj IVP SCH ×2 (09:00→20:16)
[2019-09-24] MEDS: Heparin 5000 units/ml inj SUBQ SCH ×2 (09:02→20:15)
--- NOTE | 2019-09-24 10:10 | NUR ---
CASE MANAGEMENT:REVIEW SI;RESP FAILURE. MRSA PNA. 97.4 115 18 102/62 97% 15L HIGH FLOW NRB WBC 17.9 RBC 2.63 H/H 9.4/27.8 CL 95 CO2 44 ALB 2.0 IS;SOLU-MEDROL IV Q12HRS LASIX PO Q12HRS ALDACTONE PO BID HEPARIN SUBQ Q12HRS PROTONIX PO QS SDU STATUS PLAN OF CARE; BI-PAP PRN TITRATE DIURETICS O2 TITRATION
--- NOTE | 2019-09-24 10:33 | NUR ---
RD ASSESSMENT & RECOMMENDATIONS SEE CARE ACTIVITY FOR COMPLETE ASSESSMENT DAILY ESTIMATED NEEDS: Needs based on Liver, Pulmonary 72.2kg 25-30 kcals/kg [id number] total kcals 1-1.5 g protein/kg 72-108 g total protein Fluid per MD NUTRITION DIAGNOSIS: * Decreased sodium and fat needs r/t clinical status, ascites, as evidenced by s/p paracentesis, elev LFT's, elev T bili * Swallowing difficulty R/T dysphagia, respiratory status as evidenced by pt on mech soft finely chopped texture- now upgraded to Soft easy chew, mostly on BIPAP, on non-rebreather during meals. CURRENT DIET:Cardiac, mech soft finely chopped-> NOW SOFT EAY CHEW PO DIET RECOMMENDATIONS: Low Fat/ Low Na diet / texture per WORK MEASUREMENT ENGINEER ADDITIONAL RECOMMENDATIONS: 1) Obtain daily standing weight for accuracy or calibrated bedscale wt current bedscale wt 136lbs vs EMR wt 148lbs vs initial bedscale wt 158lbs 2) Ensure Enlive TID w/ meals (350kcal/20g prot) 3) Continue thiamine/ MVI 4) Monitor lytes daily w/ diuretics, replete as needed (K low) 5) WORK MEASUREMENT ENGINEER RE-EVAL FOR POSSIBLE DIET TEXTURE UPGRADE Much improved po intake w/ texture upgrade
[2019-09-24 12:00] VITALS: BP 111/60
--- NOTE | 2019-09-24 13:00 | NUR ---
NURSE NOTES: pt resting in bed stable no resp distress presented ,on 100% NRB mask.
--- NOTE | 2019-09-24 13:01 | Infectious Diseases Prog Note ---
Assessment/Plan Assessment/Plan IMPRESSION: 1. MRSA pneumonia, treated 2. Enterobacter UTI that was treated. 3. Cirrhosis with ascites. 4. MRSA colonization. 5. Anemia. 6. Thrombocytopenia. 7. Hypokalemia corrected 8. Hypercapnic respiratory failure. 9. Leukocytosis, steroid related RECOMMENDATIONS: Observe off antibiotic Poor prognosis Subjective ROS Limited/Unobtainable: No Constitutional: Reports: no symptoms Respiratory: Reports: shortness of breath, productive cough Gastrointestinal/Abdominal: Reports: no symptoms Genitourinary: Reports: no symptoms Allergies: Coded Allergies: PENICILLINS (Verified Allergy, Intermediate, Rash, 09/01/19) Patient stated at this time Objective Vital Signs Last 24 Hour Vital Signs Date Time Temp Pulse Resp B/P (MAP) Pulse Ox O2 Delivery O2 Flow Rate FiO2 09/24/19 12:00 15.0 100 09/24/19 12:00 97.9 112 20 111/60 (77) 92 09/24/19 12:00 Non-Rebreather 15.0 09/24/19 11:43 112 09/24/19 08:00 97.4 115 18 102/62 (75) 99 09/24/19 08:00 Non-Rebreather 15.0 09/24/19 08:00 15.0 100 09/24/19 07:43 113 09/24/19 07:00 96 Non-Rebreather 15.0 100 09/24/19 04:00 112 09/24/19 04:00 Non-Rebreather 15.0 09/24/19 04:00 98.1 111 21 102/68 (79) 99 09/24/19 04:00 15.0 100 09/24/19 00:00 15.0 100 09/24/19 00:00 Non-Rebreather 15.0 09/24/19 00:00 115 09/24/19 00:00 98.4 113 21 119/66 (83) 98 09/23/19 20:00 98.7 109 22 103/60 (74) 99 09/23/19 20:00 Non-Rebreather 15.0 09/23/19 20:00 15.0 100 09/23/19 19:23 97 Non-Rebreather 15.0 100 09/23/19 16:00 98.1 112 24 94/53 (67) 98 09/23/19 16:00 15.0 100 09/23/19 16:00 Non-Rebreather 15.0 Height (Feet): 5 Height (Inches): 8.00 Weight (Pounds): 144 HEENT: mucous membranes moist Respiratory/Chest: decreased breath sounds, other - oxygen by rebreathing mask Cardiovascular: tachycardia Abdomen: soft, non tender Extremities: no edema, other - finger clubbing Neurologic/Psychiatric: alert, responsive Laboratory Tests Test 09/24/19 03:05 White Blood Count 17.9 K/UL (4.8-10.8) H Red Blood Count 2.63 M/UL (4.70-6.10) L Hemoglobin 9.4 G/DL (14.2-18.0) L Hematocrit 27.8 % (42.0-52.0) L Mean Corpuscular Volume 106 FL (80-99) H Mean Corpuscular Hemoglobin 35.7 PG (27.0-31.0) H Mean Corpuscular Hemoglobin Concent 33.8 G/DL (32.0-36.0) Red Cell Distribution Width 14.1 % (11.6-14.8) Platelet Count 143 K/UL (150-450) L Mean Platelet Volume 6.8 FL (6.5-10.1) Neutrophils (%) (Auto) % (45.0-75.0) Lymphocytes (%) (Auto) % (20.0-45.0) Monocytes (%) (Auto) % (1.0-10.0) Eosinophils (%) (Auto) % (0.0-3.0) Basophils (%) (Auto) % (0.0-2.0) Differential Total Cells Counted 100 Neutrophils % (Manual) 94 % (45-75) H Lymphocytes % (Manual) 1 % (20-45) L Monocytes % (Manual) 5 % (1-10) Eosinophils % (Manual) 0 % (0-3) Basophils % (Manual) 0 % (0-2) Band Neutrophils 0 % (0-8) Platelet Estimate Decreased L Platelet Morphology Normal Anisocytosis 1+ Macrocytosis 1+ Sodium Level 139 MMOL/L (136-145) Potassium Level 3.8 MMOL/L (3.5-5.1) Chloride Level 95 MMOL/L (98-107) L Carbon Dioxide Level 44 MMOL/L (21-32) *H Anion Gap 2 mmol/L (5-15) L Blood Urea Nitrogen 20 mg/dL (7-18) H Creatinine 1.0 MG/DL (0.55-1.30) Estimat Glomerular Filtration Rate > 60 mL/min (>60) Glucose Level 145 MG/DL (74-106) H Calcium Level 8.9 MG/DL (8.5-10.1) Magnesium Level 1.8 MG/DL (1.8-2.4) Total Bilirubin 1.2 MG/DL (0.2-1.0) H Direct Bilirubin 0.8 MG/DL (0.0-0.3) H Aspartate Amino Transf (AST/SGOT) 35 U/L (15-37) Alanine Aminotransferase (ALT/SGPT) 24 U/L (12-78) Alkaline Phosphatase 160 U/L (46-116) H Pro-B-Type Natriuretic Peptide 286 pg/mL (0-125) H Total Protein 7.3 G/DL (6.4-8.2) Albumin 2.0 G/DL (3.4-5.0) L Globulin 5.3 g/dL Albumin/Globulin Ratio 0.4 (1.0-2.7) L Current Medications Medications (Trade) Dose Ordered Sig/Akash Route PRN Reason Start Time Stop Time Status Last Admin Dose Admin Diphenhydramine HCl (Benadryl) 25 mg Q6H PRN ORAL Itching 09/06/19 14:15 10/06/19 14:14 09/24/19 05:53 Furosemide (Lasix) 40 mg DAILY ORAL 09/25/19 09:00 10/25/19 08:59 Guaifenesin/ Dextromethorphan (Robitussin DM Syrup) 5 ml Q4H PRN ORAL For Cough 08/28/19 06:15 09/26/19 06:14 Heparin Sodium (Porcine) (Heparin 5000 units/ml) 5,000 units EVERY 12 HOURS SUBQ 08/29/19 09:30 09/28/19 09:29 09/24/19 09:02 Methylprednisolone Sodium Succinate (Solu-MEDROL) 60 mg EVERY 12 HOURS IVP 09/22/19 21:00 10/22/19 20:59 09/24/19 09:00 Multivitamins (Multivitamins) 1 tab DAILY ORAL 09/22/19 09:00 10/22/19 08:59 09/24/19 09:00 Nicotine (Nicoderm) 1 patch Q24H TDERMAL 09/20/19 21:00 10/20/19 20:59 09/23/19 20:58 Pantoprazole (Protonix) 40 mg ACBREAKFAST ORAL 09/22/19 09:00 10/22/19 08:59 09/24/19 05:53 Spironolactone (Aldactone) 25 mg BID ORAL 09/20/19 09:00 10/20/19 08:59 09/24/19 09:00 Thiamine HCl (Vitamin B1) 100 mg DAILY ORAL 09/22/19 09:00 10/22/19 08:59 09/24/19 09:00 Jamie Swanson MD Sep 24, 2019 13:01
--- NOTE | 2019-09-24 14:54 | General Progress Note ---
Assessment/Plan Problem List: (1) AMS (altered mental status) ICD Codes: R41.82 - Altered mental status, unspecified SNOMED: 854333640 Status: stable Assessment/Plan: o2 via nrb- try to wean bipap prn monitor cxr diuresis/keep dry guarded ?ltach Subjective ROS Limited/Unobtainable: No Constitutional: Reports: malaise, weakness HEENT: Reports: no symptoms Cardiovascular: Reports: no symptoms Respiratory: Reports: cough, shortness of breath Gastrointestinal/Abdominal: Reports: no symptoms Genitourinary: Reports: no symptoms Neurologic/Psychiatric: Reports: no symptoms Endocrine: Reports: no symptoms Hematologic/Lymphatic: Reports: no symptoms Allergies: Coded Allergies: PENICILLINS (Verified Allergy, Intermediate, Rash, 09/01/19) Patient stated at this time All Systems: reviewed and negative except above Subjective no change. still with sob. requires NRB mask. resting. Objective Last 24 Hour Vital Signs Date Time Temp Pulse Resp B/P (MAP) Pulse Ox O2 Delivery O2 Flow Rate FiO2 09/24/19 12:00 15.0 100 09/24/19 12:00 97.9 112 20 111/60 (77) 92 09/24/19 12:00 Non-Rebreather 15.0 09/24/19 11:43 112 09/24/19 08:00 97.4 115 18 102/62 (75) 99 09/24/19 08:00 Non-Rebreather 15.0 09/24/19 08:00 15.0 100 09/24/19 07:43 113 09/24/19 07:00 96 Non-Rebreather 15.0 100 09/24/19 04:00 112 09/24/19 04:00 Non-Rebreather 15.0 09/24/19 04:00 98.1 111 21 102/68 (79) 99 09/24/19 04:00 15.0 100 09/24/19 00:00 15.0 100 09/24/19 00:00 Non-Rebreather 15.0 09/24/19 00:00 115 09/24/19 00:00 98.4 113 21 119/66 (83) 98 09/23/19 20:00 98.7 109 22 103/60 (74) 99 09/23/19 20:00 Non-Rebreather 15.0 09/23/19 20:00 15.0 100 09/23/19 19:23 97 Non-Rebreather 15.0 100 09/23/19 16:00 98.1 112 24 94/53 (67) 98 09/23/19 16:00 15.0 100 09/23/19 16:00 Non-Rebreather 15.0 Intake and Output 09/23/19 09/24/19 19:00 07:00 Intake Total 1040 ml Output Total 301 ml Balance 739 ml Intake Oral 1040 ml Output Urine Total 300 ml Stool Total 1 ml # Bowel Movements 1 Laboratory Tests 09/24/19 03:05: White Blood Count 17.9H, Red Blood Count 2.63L, Hemoglobin 9.4L, Hematocrit 27.8L, Mean Corpuscular Volume 106H, Mean Corpuscular Hemoglobin 35.7H, Mean Corpuscular Hemoglobin Concent 33.8, Red Cell Distribution Width 14.1, Platelet Count 143L, Mean Platelet Volume 6.8, Neutrophils (%) (Auto) , Lymphocytes (%) ( Auto) , Monocytes (%) (Auto) , Eosinophils (%) (Auto) , Basophils (%) (Auto) , Differential Total Cells Counted 100, Neutrophils % (Manual) 94H, Lymphocytes % (Manual) 1L, Monocytes % (Manual) 5, Eosinophils % (Manual) 0, Basophils % ( Manual) 0, Band Neutrophils 0, Platelet Estimate DecreasedL, Platelet Morphology Normal, Anisocytosis 1+, Macrocytosis 1+, Sodium Level 139, Potassium Level 3.8, Chloride Level 95L, Carbon Dioxide Level 44*H, Anion Gap 2L , Blood Urea Nitrogen 20H, Creatinine 1.0, Estimat Glomerular Filtration Rate > 60, Glucose Level 145H, Calcium Level 8.9, Magnesium Level 1.8, Total Bilirubin 1.2H, Direct Bilirubin 0.8H, Aspartate Amino Transf (AST/SGOT) 35, Alanine Aminotransferase (ALT/SGPT) 24, Alkaline Phosphatase 160H, Pro-B-Type Natriuretic Peptide 286H, Total Protein 7.3, Albumin 2.0L, Globulin 5.3, Albumin /Globulin Ratio 0.4L Height (Feet): 5 Height (Inches): 8.00 Weight (Pounds): 144 Objective General Appearance: WD/WN, lethargic. on bipap. Neck: supple Cardiovascular: regular rhythm Respiratory/Chest: lungs td rhonchi Abdomen: normal bowel sounds, non tender. small reducible periumbilical hernia Edema: no edema noted Arm (L), no edema noted Arm (R), no edema noted Leg (L), no edema noted Leg (R), no edema noted Pedal (L), no edema noted Pedal (R), no edema noted Generalized Henry Leavitt MD Sep 24, 2019 14:54
[2019-09-24 16:00] VITALS: BP 105/57
--- NOTE | 2019-09-24 18:45 | NUR ---
NURSE NOTES: pt resting quietly in bed ,no resp distress presented during the shift,stable.
--- NOTE | 2019-09-24 19:09 | NUR ---
HAND-OFF: Report given to Mariah NAJERA.
--- NOTE | 2019-09-24 19:23 | NUR ---
NURSE NOTES: Received report from Karyn Castle RN, pt. in bed awake- A/O x's4- able to make needs known, no signs or symptoms of acute cardiac or respiratory distress noted, bed alarm on, side rails up x's3 and safety brakes engaged, pt. appears to be sating well on non-rebreather at 15L- no distress noted, pt has call light within easy reach, urinal is at bedside and within easy reach, pt. appears to be comfortable watching television, RAC 20G- IV intact and patent, pt. appears to be resting comfortably watching television, safety measures continued, will continue with plan of care.
[2019-09-24 20:00] VITALS: BP 107/66
[2019-09-25] VITALS: BP 110/71
--- NOTE | 2019-09-25 01:30 | Progress Note ---
DATE: 09/24/2019 CARDIOLOGY PROGRESS NOTE SUBJECTIVE: Still on a non-rebreather mask. Still with shortness of breath. Monitored rhythm, sinus tachycardia. OBJECTIVE: VITAL SIGNS: Blood pressure 111/60, pulse 112, respiratory rate 20, and afebrile. LUNGS: Bilateral rales. CARDIAC: Irregular rhythm. Rapid rate. Normal S1 and S2. ABDOMEN: Soft. EXTREMITIES: No edema. LABORATORY DATA: White count 17.9 and hemoglobin 9.4. Sodium 139, potassium 3.8, chloride 95, bicarb 44, BUN 20, and creatinine 1. Magnesium 1.8. Albumin is 2. IMPRESSION: 1. Respiratory failure. 2. Pulmonary infiltrates. 3. Acute respiratory acidosis. 4. Worsening metabolic alkalosis likely due to diuresis. 5. Severe protein-calorie malnutrition, improved. 6. Hypoxia. PLAN: 1. Hold diuresis. 2. Reassess tomorrow for additional diuretic therapy. 3. Taper oxygen as able. 4. Nutritional support. 5. Continue cardiac monitoring. 6. DVT prophylaxis. Ar Gomez M.D. DR: SAMM JOB#: [id number] CC:
[2019-09-25 03:55] VITALS: BP 116/70
--- NOTE | 2019-09-25 07:34 | Pulmonology Progress Note ---
Assessment/Plan Assessment/Plan Pulmonary Progress Note: HPI Patient is a 49-year-old man admitted with altered mental status, MRSA Pneumonia. History of alcohol use. Noted to have Heart Failure, hypoxic respiratory failure, previously prolongued peroid of Bipap dependency, stable O2 sats on FM O2 for a few days. Allergies: Penicillin PMH: Hernia, Cirrhosis All Other Systems: limited - Unable to obtain due to mental status changes Persistant bilateral infiltrates Refusing Bipap Physical Exam Vital Signs Noted General Appearance: no apparent distress, alert, non-toxic, PRN Bipap Head: normocephalic, atraumatic Eyes: bilateral eye normal inspection ENT: hearing grossly normal, EOM grossly intact, moist mucus membranes Neck: supple Respiratory: occasional rhonchi bilaterally Cardiovascular: regular rate, rhythm, normal capillary refill Gastrointestinal: soft, mild distention, ascites, hernia Rectal: deferred Musculoskeletal: moves extremities spontaneously, no lower extremity edema Neurologic: Awake no gross deficits noted, feed miller III-XII nml as tested - Unable to fully test but no gross deficits noted, sensory intact, moving all 4 extremities and withdraws from pain Skin: warm/dry, normal turgor Impression - MRSA Pneumonia - Persistent leucocytosis - Hypoxic respiratory Failure - CHFpEF - Atrial Fibrillation - Cirrhosis, h/o ETOH Use, ascites s/p Paracentesis - Homeless - Enterobacter UTI s/p rx - Thrombocytopenia - Anasarca PLAN lasix bid keep negative and monitor steroid off BIPAP - refusing on high flow oxygen at risk for intubation at present, recommend elective intubation and bronchoscopy for wash in ICU to rule out infectious etiology d/w with primary steroids with overall improvement in oxygen saturation; will monitor closely prognosis very poor impression, plan, and exam edited and reviewed in detail care discussed with RN Laboratory Tests Noted EKG: A. fib Rate: other - 90s Rhythm: other - A. fib ST Segments: other - QT segment 408, QTc 499 CXR: Impression: Persistent interstitial opacification/edema. More dense bibasilar airspace disease which may be related to atelectasis or pneumonia also slightly increased. CT Head no Contrast No acute intracranial process Subjective ROS Limited/Unobtainable: No Allergies: Coded Allergies: PENICILLINS (Verified Allergy, Intermediate, Rash, 09/01/19) Patient stated at this time Objective Last 24 Hour Vital Signs Date Time Temp Pulse Resp B/P (MAP) Pulse Ox O2 Delivery O2 Flow Rate FiO2 09/25/19 04:00 15.0 100 09/25/19 04:00 Non-Rebreather 15.0 09/25/19 03:55 97.2 90 20 116/70 (85) 100 09/25/19 03:53 113 09/25/19 00:00 Non-Rebreather 15.0 09/25/19 00:00 97.2 99 20 110/71 (84) 99 09/25/19 00:00 15.0 100 09/24/19 23:43 102 09/24/19 22:49 96 Non-Rebreather 15.0 100 09/24/19 20:00 97.8 110 20 107/66 (80) 99 09/24/19 20:00 15.0 100 09/24/19 20:00 Non-Rebreather 15.0 09/24/19 20:00 111 09/24/19 16:35 117 09/24/19 16:00 97.2 119 18 105/57 (73) 97 09/24/19 16:00 Non-Rebreather 15.0 09/24/19 16:00 15.0 100 09/24/19 12:00 15.0 100 09/24/19 12:00 97.9 112 20 111/60 (77) 92 09/24/19 12:00 Non-Rebreather 15.0 09/24/19 11:43 112 09/24/19 08:00 97.4 115 18 102/62 (75) 99 09/24/19 08:00 Non-Rebreather 15.0 09/24/19 08:00 15.0 100 09/24/19 07:43 113 Intake and Output 09/24/19 09/25/19 19:00 07:00 Intake Total 980 ml Output Total 850 ml 700 ml Balance 130 ml -700 ml Intake Oral 980 ml Output Urine Total 850 ml 700 ml Current Medications Medications (Trade) Dose Ordered Sig/Akash Route PRN Reason Start Time Stop Time Status Last Admin Dose Admin Diphenhydramine HCl (Benadryl) 25 mg Q6H PRN ORAL Itching 09/06/19 14:15 10/06/19 14:14 09/25/19 02:33 Furosemide (Lasix) 40 mg DAILY ORAL 09/26/19 09:00 10/26/19 08:59 Guaifenesin/ Dextromethorphan (Robitussin DM Syrup) 5 ml Q4H PRN ORAL For Cough 08/28/19 06:15 09/26/19 06:14 Heparin Sodium (Porcine) (Heparin 5000 units/ml) 5,000 units EVERY 12 HOURS SUBQ 08/29/19 09:30 09/28/19 09:29 09/24/19 20:15 Methylprednisolone Sodium Succinate (Solu-MEDROL) 60 mg EVERY 12 HOURS IVP 09/22/19 21:00 10/22/19 20:59 09/24/19 20:16 Multivitamins (Multivitamins) 1 tab DAILY ORAL 09/22/19 09:00 10/22/19 08:59 09/24/19 09:00 Nicotine (Nicoderm) 1 patch Q24H TDERMAL 09/20/19 21:00 10/20/19 20:59 09/24/19 20:14 Pantoprazole (Protonix) 40 mg ACBREAKFAST ORAL 09/22/19 09:00 10/22/19 08:59 09/25/19 05:34 Spironolactone (Aldactone) 25 mg BID ORAL 09/20/19 09:00 10/20/19 08:59 09/24/19 18:17 Thiamine HCl (Vitamin B1) 100 mg DAILY ORAL 09/22/19 09:00 10/22/19 08:59 09/24/19 09:00 Ar Cook MD Sep 25, 2019 07:33
--- NOTE | 2019-09-25 07:55 | NUR ---
HAND-OFF: Report given to REINALDO Healy- pt. transferred to Telemetry room 218-1- pt. remains stable and no signs of distress noted- belongings list checked.
[2019-09-25 08:00] VITALS: BP 115/62
--- NOTE | 2019-09-25 08:00 | NUR ---
NURSE NOTES: Patient transferred from [facility] to Tele. Report received from REINALDO Shaw. Patient is on 15 liters via non-rebreather, no acute signs of distress noted, patient denies any pain. Patient has call light within reach and bed in the low and locked position with bed alarm on. Patient has a cane at bedside. Informed patient to use call light if he needs to get out of bed for any reason. Iv site is clean dry and intact, saline locked. will continue to monitor.
[2019-09-25] MEDS ORDERED: Guaifenesin/DM 10ml syrup ORAL PRN (08:04)
[2019-09-25] MEDS ORDERED: Furosemide 40mg tab ORAL SCH (09:00)
[2019-09-25] MEDS: Thiamine 100mg tab ORAL SCH (09:10)
[2019-09-25] MEDS: Spironolactone 25mg tab ORAL SCH ×2 (09:10→17:21)
[2019-09-25] MEDS: Furosemide 40mg tab ORAL SCH (09:10)
[2019-09-25] MEDS: Heparin 5000 units/ml inj SUBQ SCH ×2 (09:11→20:47)
[2019-09-25] MEDS: Solu-MEDROL 125mg Inj IVP SCH ×2 (09:12→20:46)
--- NOTE | 2019-09-25 11:02 | Infectious Diseases Prog Note ---
Assessment/Plan Assessment/Plan antibiotics : none A 1. MRSA pneumonia s/p rx 2. respiratory failure 3. enterobacter UTI s/p rx 4. cirrhosis 5. ascites s/p paracentesis no SBP 6. thrombocytopenia 7. leucocytosis likely secondary to steroids P 1. observe off antibiotics 2. will follow up clinically Subjective Constitutional: Denies: fever Respiratory: Reports: shortness of breath - decreased, dry cough - decreased Gastrointestinal/Abdominal: Denies: nausea, vomiting, diarrhea Musculoskeletal: Reports: pain Allergies: Coded Allergies: PENICILLINS (Verified Allergy, Intermediate, Rash, 09/01/19) Patient stated at this time Objective Vital Signs Last 24 Hour Vital Signs Date Time Temp Pulse Resp B/P (MAP) Pulse Ox O2 Delivery O2 Flow Rate FiO2 09/25/19 09:20 Non-Rebreather 15.0 09/25/19 08:39 93 Non-Rebreather 15.0 100 09/25/19 08:31 15.0 100 09/25/19 08:00 114 09/25/19 08:00 97.5 111 19 115/62 (79) 90 09/25/19 08:00 Non-Rebreather 15.0 09/25/19 04:00 15.0 100 09/25/19 04:00 Non-Rebreather 15.0 09/25/19 03:55 97.2 90 20 116/70 (85) 100 09/25/19 03:53 113 09/25/19 00:00 Non-Rebreather 15.0 09/25/19 00:00 97.2 99 20 110/71 (84) 99 09/25/19 00:00 15.0 100 09/24/19 23:43 102 09/24/19 22:49 96 Non-Rebreather 15.0 100 09/24/19 20:00 97.8 110 20 107/66 (80) 99 09/24/19 20:00 15.0 100 09/24/19 20:00 Non-Rebreather 15.0 09/24/19 20:00 111 09/24/19 16:35 117 09/24/19 16:00 97.2 119 18 105/57 (73) 97 09/24/19 16:00 Non-Rebreather 15.0 09/24/19 16:00 15.0 100 09/24/19 12:00 15.0 100 09/24/19 12:00 97.9 112 20 111/60 (77) 92 09/24/19 12:00 Non-Rebreather 15.0 09/24/19 11:43 112 Height (Feet): 5 Height (Inches): 8.00 Weight (Pounds): 142 Respiratory/Chest: lungs clear Cardiovascular: normal rate, regular rhythm, no gallop/murmur Abdomen: soft, non tender Extremities: no edema Current Medications Medications (Trade) Dose Ordered Sig/Akash Route PRN Reason Start Time Stop Time Status Last Admin Dose Admin Diphenhydramine HCl (Benadryl) 25 mg Q6H PRN ORAL Itching 09/25/19 08:15 10/06/19 14:14 09/25/19 09:09 Furosemide (Lasix) 40 mg DAILY ORAL 09/25/19 09:00 10/25/19 08:59 09/25/19 09:10 Guaifenesin/ Dextromethorphan (Robitussin DM Syrup) 5 ml Q4H PRN ORAL For Cough 09/25/19 08:04 09/26/19 08:03 Heparin Sodium (Porcine) (Heparin 5000 units/ml) 5,000 units EVERY 12 HOURS SUBQ 09/25/19 09:00 09/28/19 09:29 09/25/19 09:11 Methylprednisolone Sodium Succinate (Solu-MEDROL) 60 mg EVERY 12 HOURS IVP 09/25/19 09:00 10/22/19 20:59 09/25/19 09:12 Multivitamins (Multivitamins) 1 tab DAILY ORAL 09/25/19 09:00 10/22/19 08:59 09/25/19 09:09 Nicotine (Nicoderm) 1 patch Q24H TDERMAL 09/25/19 21:00 10/20/19 20:59 Pantoprazole (Protonix) 40 mg ACBREAKFAST ORAL 09/26/19 06:30 10/22/19 08:59 Spironolactone (Aldactone) 25 mg BID ORAL 09/25/19 09:00 10/20/19 08:59 09/25/19 09:10 Thiamine HCl (Vitamin B1) 100 mg DAILY ORAL 09/25/19 09:00 10/22/19 08:59 09/25/19 09:10 Morena Erazo MD Sep 25, 2019 11:02
--- NOTE | 2019-09-25 11:50 | General Progress Note ---
Assessment/Plan Problem List: (1) AMS (altered mental status) ICD Codes: R41.82 - Altered mental status, unspecified SNOMED: 542780440 Status: stable Assessment/Plan: o2 via nrb- try to wean bipap prn monitor cxr diuresis/keep dry guarded agree with bronch if needed and pt agrees Subjective ROS Limited/Unobtainable: No Constitutional: Reports: malaise, weakness HEENT: Reports: no symptoms Cardiovascular: Reports: no symptoms Respiratory: Reports: cough, shortness of breath Gastrointestinal/Abdominal: Reports: no symptoms Genitourinary: Reports: no symptoms Neurologic/Psychiatric: Reports: no symptoms Endocrine: Reports: no symptoms Hematologic/Lymphatic: Reports: anemia Allergies: Coded Allergies: PENICILLINS (Verified Allergy, Intermediate, Rash, 09/01/19) Patient stated at this time All Systems: reviewed and negative except above Subjective no change. still with sob. requires NRB mask. resting. pulm noted Objective Last 24 Hour Vital Signs Date Time Temp Pulse Resp B/P (MAP) Pulse Ox O2 Delivery O2 Flow Rate FiO2 09/25/19 09:20 Non-Rebreather 15.0 09/25/19 08:39 93 Non-Rebreather 15.0 100 09/25/19 08:31 15.0 100 09/25/19 08:00 114 09/25/19 08:00 97.5 111 19 115/62 (79) 90 09/25/19 08:00 Non-Rebreather 15.0 09/25/19 04:00 15.0 100 09/25/19 04:00 Non-Rebreather 15.0 09/25/19 03:55 97.2 90 20 116/70 (85) 100 09/25/19 03:53 113 09/25/19 00:00 Non-Rebreather 15.0 09/25/19 00:00 97.2 99 20 110/71 (84) 99 09/25/19 00:00 15.0 100 09/24/19 23:43 102 09/24/19 22:49 96 Non-Rebreather 15.0 100 09/24/19 20:00 97.8 110 20 107/66 (80) 99 09/24/19 20:00 15.0 100 09/24/19 20:00 Non-Rebreather 15.0 09/24/19 20:00 111 09/24/19 16:35 117 09/24/19 16:00 97.2 119 18 105/57 (73) 97 09/24/19 16:00 Non-Rebreather 15.0 09/24/19 16:00 15.0 100 09/24/19 12:00 15.0 100 09/24/19 12:00 97.9 112 20 111/60 (77) 92 09/24/19 12:00 Non-Rebreather 15.0 Intake and Output 09/24/19 09/25/19 19:00 07:00 Intake Total 980 ml 120 ml Output Total 850 ml 700 ml Balance 130 ml -580 ml Intake Oral 980 ml 120 ml Output Urine Total 850 ml 700 ml Height (Feet): 5 Height (Inches): 8.00 Weight (Pounds): 142 Objective General Appearance: WD/WN, lethargic. on bipap. Neck: supple Cardiovascular: regular rhythm Respiratory/Chest: lungs td rhonchi Abdomen: normal bowel sounds, non tender. small reducible periumbilical hernia Edema: no edema noted Arm (L), no edema noted Arm (R), no edema noted Leg (L), no edema noted Leg (R), no edema noted Pedal (L), no edema noted Pedal (R), no edema noted Generalized Henry Leavitt MD Sep 25, 2019 11:50
[2019-09-25 12:00] VITALS: BP 143/73
[2019-09-25 16:00] VITALS: BP 106/65
[2019-09-25] MEDS ORDERED: NS 275ml ONE (16:04)
--- NOTE | 2019-09-25 19:34 | NUR ---
HAND-OFF: Report given to REINALDO Franco.
--- NOTE | 2019-09-25 19:35 | NUR ---
NURSE NOTES: Got report from Niraj NAJERA. Pt in stable condition. Denies any pain. No s/s of distress or discomfort noted. Pt resting in bed comfortably. Bed in low and locked position, call light within reach, bedside table within reach. Continue to monitor.
[2019-09-25 20:00] VITALS: BP 103/62
[2019-09-26] VITALS: BP 111/64
--- NOTE | 2019-09-26 07:00 | NUR ---
NURSE NOTES: Pt pulled IV and refusing new iv site. Refusing nonrebreather mask. Refusing everything. Paged Dr. Leavitt. Awaitng call back
--- NOTE | 2019-09-26 07:20 | NUR ---
HAND-OFF: Report given to Paul NAJERA.
[2019-09-26 08:00] VITALS: BP 112/74
--- NOTE | 2019-09-26 08:36 | NUR ---
NURSE NOTES: Patient in supine position, HOB at 30 degrees, Oxygen at 15 liters non-rebreather, Bipap at bedside, bed in lowest position, call light within reach, no c/o pain, no SOB, patient is restless.
--- NOTE | 2019-09-26 08:50 | NUR ---
NURSE NOTES: Night nurse, REINALDO Clarke, state, "I called Dr. Henry Leavitt, and he is aware the patient doesn't have a IV access."
[2019-09-26] MEDS: Solu-MEDROL 125mg Inj IVP SCH ×3 (09:00→21:28)
[2019-09-26] MEDS ORDERED: Furosemide 40mg tab ORAL SCH (09:00)
[2019-09-26] MEDS: Heparin 5000 units/ml inj SUBQ SCH ×2 (09:00→21:00)
[2019-09-26] MEDS: Thiamine 100mg tab ORAL SCH (09:53)
[2019-09-26] MEDS: Furosemide 40mg tab ORAL SCH (09:53)
[2019-09-26] MEDS: Spironolactone 25mg tab ORAL SCH ×2 (09:54→17:20)
--- NOTE | 2019-09-26 11:14 | General Progress Note ---
Assessment/Plan Problem List: (1) AMS (altered mental status) ICD Codes: R41.82 - Altered mental status, unspecified SNOMED: 548006810 Status: stable Assessment/Plan: o2 via nrb- try to wean bipap prn monitor cxr check abg diuresis/keep dry guarded agree with bronch if needed and pt agrees Subjective ROS Limited/Unobtainable: No Constitutional: Reports: malaise, weakness HEENT: Reports: no symptoms Cardiovascular: Reports: no symptoms Respiratory: Reports: cough, shortness of breath Gastrointestinal/Abdominal: Reports: no symptoms Genitourinary: Reports: no symptoms Neurologic/Psychiatric: Reports: anxiety, emotional problems Endocrine: Reports: no symptoms Hematologic/Lymphatic: Reports: no symptoms Allergies: Coded Allergies: PENICILLINS (Verified Allergy, Intermediate, Rash, 09/01/19) Patient stated at this time All Systems: reviewed and negative except above Subjective no change. still with sob. requires NRB mask. resting. pulm noted pt keeps pulling of mask Objective Last 24 Hour Vital Signs Date Time Temp Pulse Resp B/P (MAP) Pulse Ox O2 Delivery O2 Flow Rate FiO2 09/26/19 09:03 91 Non-Rebreather 15.0 100 09/26/19 08:00 96.7 102 19 112/74 (87) 96 09/26/19 00:00 97.1 109 18 111/64 (80) 98 09/26/19 00:00 110 09/25/19 21:28 92 Non-Rebreather 15.0 100 09/25/19 21:00 Non-Rebreather 15.0 09/25/19 20:00 97.3 105 17 103/62 (76) 97 09/25/19 20:00 111 09/25/19 20:00 15.0 100 09/25/19 17:41 116 09/25/19 16:00 97.7 102 18 106/65 (79) 97 09/25/19 12:00 105 09/25/19 12:00 97.7 104 18 143/73 (96) 97 Intake and Output 09/25/19 09/26/19 19:00 07:00 Intake Total 400 ml Balance 400 ml Intake Oral 400 ml # Voids 4 3 Height (Feet): 5 Height (Inches): 8.00 Weight (Pounds): 142 Objective General Appearance: WD/WN, lethargic. on bipap. Neck: supple Cardiovascular: regular rhythm Respiratory/Chest: lungs td rhonchi Abdomen: normal bowel sounds, non tender. small reducible periumbilical hernia Edema: no edema noted Arm (L), no edema noted Arm (R), no edema noted Leg (L), no edema noted Leg (R), no edema noted Pedal (L), no edema noted Pedal (R), no edema noted Generalized Henry Leavitt MD Sep 26, 2019 11:14
--- NOTE | 2019-09-26 11:30 | NUR ---
NURSE NOTES: Notified Dr. Henry Leavitt that patient doesn't have IV, unable to provide Solumedrol. Received orders that if patient refuses IV, OK to provide prednisone.
--- NOTE | 2019-09-26 11:56 | NUR ---
NURSE NOTES: Reported ABG results to Dr. Henry Leavitt, patient needs to remain on non-rebreather.
[2019-09-26 12:00] VITALS: BP 103/70
--- NOTE | 2019-09-26 12:45 | Infectious Diseases Prog Note ---
Assessment/Plan Assessment/Plan IMPRESSION: 1. MRSA pneumonia, treated 2. Enterobacter UTI that was treated. 3. Cirrhosis with ascites. 4. MRSA colonization. 5. Anemia. 6. Thrombocytopenia. 7. Hypokalemia corrected 8. Hypercapnic respiratory failure. 9. Leukocytosis, steroid related RECOMMENDATIONS: Observe off antibiotic Poor prognosis Subjective ROS Limited/Unobtainable: Yes Neurologic: Reports: confusion, other - on restraint Allergies: Coded Allergies: PENICILLINS (Verified Allergy, Intermediate, Rash, 09/01/19) Patient stated at this time Objective Vital Signs Last 24 Hour Vital Signs Date Time Temp Pulse Resp B/P (MAP) Pulse Ox O2 Delivery O2 Flow Rate FiO2 09/26/19 09:03 91 Non-Rebreather 15.0 100 09/26/19 08:00 96.7 102 19 112/74 (87) 96 09/26/19 00:00 97.1 109 18 111/64 (80) 98 09/26/19 00:00 110 09/25/19 21:28 92 Non-Rebreather 15.0 100 09/25/19 21:00 Non-Rebreather 15.0 09/25/19 20:00 97.3 105 17 103/62 (76) 97 09/25/19 20:00 111 09/25/19 20:00 15.0 100 09/25/19 17:41 116 09/25/19 16:00 97.7 102 18 106/65 (79) 97 Height (Feet): 5 Height (Inches): 8.00 Weight (Pounds): 142 General Appearance: no acute distress HEENT: mucous membranes moist Respiratory/Chest: lungs clear, other - oxygen by rebreathing mask Cardiovascular: tachycardia Abdomen: soft, non tender Extremities: no edema Neurologic/Psychiatric: alert, responsive Laboratory Tests Test 09/26/19 11:31 Arterial Blood pH 7.454 (7.350-7.450) Arterial Blood Partial Pressure CO2 59.7 mmHg (35.0-45.0) *H Arterial Blood Partial Pressure O2 48.4 mmHg (75.0-100.0) Arterial Blood HCO3 40.9 mmol/L (22.0-26.0) *H Arterial Blood Oxygen Saturation 81.8 % (95-100) *L Arterial Blood Base Excess 14.9 (-2-2) *H Giovanny Test Positive Current Medications Medications (Trade) Dose Ordered Sig/Akash Route PRN Reason Start Time Stop Time Status Last Admin Dose Admin Diphenhydramine HCl (Benadryl) 25 mg Q6H PRN ORAL Itching 09/25/19 08:15 10/06/19 14:14 09/26/19 10:22 Furosemide (Lasix) 40 mg DAILY ORAL 09/25/19 09:00 10/25/19 08:59 09/26/19 09:53 Heparin Sodium (Porcine) (Heparin 5000 units/ml) 5,000 units EVERY 12 HOURS SUBQ 09/25/19 09:00 09/28/19 09:29 09/25/19 09:11 Methylprednisolone Sodium Succinate (Solu-MEDROL) 60 mg EVERY 12 HOURS IVP 09/25/19 09:00 10/22/19 20:59 09/25/19 20:46 Multivitamins (Multivitamins) 1 tab DAILY ORAL 09/25/19 09:00 10/22/19 08:59 09/26/19 09:53 Nicotine (Nicoderm) 1 patch Q24H TDERMAL 09/25/19 21:00 10/20/19 20:59 09/25/19 20:47 Pantoprazole (Protonix) 40 mg ACBREAKFAST ORAL 09/26/19 06:30 10/22/19 08:59 Spironolactone (Aldactone) 25 mg BID ORAL 09/25/19 09:00 10/20/19 08:59 09/26/19 09:54 Thiamine HCl (Vitamin B1) 100 mg DAILY ORAL 09/25/19 09:00 10/22/19 08:59 09/26/19 09:53 Jamie Swanson MD Sep 26, 2019 12:45
[2019-09-26] MEDS: LORazepam Inj 2mg/ml 1ml IV PRN (13:18)
--- NOTE | 2019-09-26 14:59 | Pulmonology Progress Note ---
Assessment/Plan Assessment/Plan Pulmonary Progress Note: HPI Patient is a 49-year-old man admitted with altered mental status, MRSA Pneumonia. History of alcohol use. Noted to have Heart Failure, hypoxic respiratory failure, previously prolongued peroid of Bipap dependency, stable O2 sats on FM O2 for a few days. PRN BiPAP Refusing BiPAP Allergies: Penicillin PMH: Hernia, Cirrhosis All Other Systems: limited - Unable to obtain due to mental status changes Persistant bilateral infiltrates Refusing Bipap Physical Exam Vital Signs Noted General Appearance: no apparent distress, alert, non-toxic, PRN Bipap Head: normocephalic, atraumatic Eyes: bilateral eye normal inspection ENT: hearing grossly normal, EOM grossly intact, moist mucus membranes Neck: supple Respiratory: occasional rhonchi bilaterally Cardiovascular: regular rate, rhythm, normal capillary refill Gastrointestinal: soft, mild distention, ascites, hernia Rectal: deferred Musculoskeletal: moves extremities spontaneously, no lower extremity edema Neurologic: Awake no gross deficits noted, penology teacher III-XII nml as tested - Unable to fully test but no gross deficits noted, sensory intact, moving all 4 extremities and withdraws from pain Skin: warm/dry, normal turgor Impression - MRSA Pneumonia - Persistent leucocytosis - Hypoxic respiratory Failure, refusing BiPAP, on NRB - CHFpEF - Atrial Fibrillation - Cirrhosis, h/o ETOH Use, ascites s/p Paracentesis - Homeless - Enterobacter UTI s/p rx - Thrombocytopenia - Anasarca PLAN lasix bid keep negative and monitor steroid off BIPAP - refusing on high flow oxygen at risk for intubation at present, recommend elective intubation and bronchoscopy for wash in ICU to rule out infectious etiology d/w with primary steroids with overall improvement in oxygen saturation; will monitor closely prognosis very poor impression, plan, and exam edited and reviewed in detail care discussed with RN Laboratory Tests Noted EKG: A. fib Rate: other - 90s Rhythm: other - A. fib ST Segments: other - QT segment 408, QTc 499 CXR: Impression: Persistent interstitial opacification/edema. More dense bibasilar airspace disease which may be related to atelectasis or pneumonia also slightly increased. CT Head no Contrast No acute intracranial process Subjective ROS Limited/Unobtainable: No Allergies: Coded Allergies: PENICILLINS (Verified Allergy, Intermediate, Rash, 09/01/19) Patient stated at this time Objective Last 24 Hour Vital Signs Date Time Temp Pulse Resp B/P (MAP) Pulse Ox O2 Delivery O2 Flow Rate FiO2 09/26/19 09:03 91 Non-Rebreather 15.0 100 09/26/19 08:00 96.7 102 19 112/74 (87) 96 09/26/19 00:00 97.1 109 18 111/64 (80) 98 09/26/19 00:00 110 09/25/19 21:28 92 Non-Rebreather 15.0 100 09/25/19 21:00 Non-Rebreather 15.0 09/25/19 20:00 97.3 105 17 103/62 (76) 97 09/25/19 20:00 111 09/25/19 20:00 15.0 100 09/25/19 17:41 116 09/25/19 16:00 97.7 102 18 106/65 (79) 97 Intake and Output 09/25/19 09/26/19 19:00 07:00 Intake Total 400 ml Balance 400 ml Intake Oral 400 ml # Voids 4 3 Laboratory Tests 09/26/19 11:31: Arterial Blood pH 7.454H, Arterial Blood Partial Pressure CO2 59.7*H, Arterial Blood Partial Pressure O2 48.4*L, Arterial Blood HCO3 40.9*H, Arterial Blood Oxygen Saturation 81.8*L, Arterial Blood Base Excess 14.9*H, Giovanny Test Positive Current Medications Medications (Trade) Dose Ordered Sig/Akash Route PRN Reason Start Time Stop Time Status Last Admin Dose Admin Diphenhydramine HCl (Benadryl) 25 mg Q6H PRN ORAL Itching 09/25/19 08:15 10/06/19 14:14 09/26/19 10:22 Furosemide (Lasix) 40 mg DAILY ORAL 09/25/19 09:00 10/25/19 08:59 09/26/19 09:53 Heparin Sodium (Porcine) (Heparin 5000 units/ml) 5,000 units EVERY 12 HOURS SUBQ 09/25/19 09:00 09/28/19 09:29 09/25/19 09:11 Lorazepam (Ativan 2mg/ml 1ml) 1 mg Q4H PRN IV For Anxiety 09/26/19 13:00 10/03/19 12:59 Methylprednisolone Sodium Succinate (Solu-MEDROL) 60 mg EVERY 12 HOURS IVP 1/11/20 09:00 10/22/19 20:59 09/25/19 20:46 Multivitamins (Multivitamins) 1 tab DAILY ORAL 09/25/19 09:00 10/22/19 08:59 09/26/19 09:53 Nicotine (Nicoderm) 1 patch Q24H TDERMAL 09/25/19 21:00 10/20/19 20:59 09/25/19 20:47 Pantoprazole (Protonix) 40 mg ACBREAKFAST ORAL 09/26/19 06:30 10/22/19 08:59 Spironolactone (Aldactone) 25 mg BID ORAL 09/25/19 09:00 10/20/19 08:59 09/26/19 09:54 Thiamine HCl (Vitamin B1) 100 mg DAILY ORAL 09/25/19 09:00 10/22/19 08:59 09/26/19 09:53 Ar Cook MD Sep 26, 2019 14:59
[2019-09-26 16:00] VITALS: BP 110/74
--- NOTE | 2019-09-26 17:16 | NUR ---
NURSE NOTES: Unable to scan 1318 dose of Ativan. Notified [facility] in pharmacy and corrected in [facility].
--- NOTE | 2019-09-26 18:23 | NUR ---
CASE MANAGEMENT:REVIEW 09/25/2019 SI;RESP FAILURE. MRSA PNA. T 97.7 HR 104 RR 18 B/P 143/73 SATS 97% ON 15L/NRB LABS: NONE TODAY IS;SOLU-MEDROL IV Q12HRS LASIX PO Q12HRS ALDACTONE PO BID HEPARIN SUBQ Q12HRS PROTONIX PO QS TELE 09/26/2019 SI;RESP FAILURE. MRSA PNA. T 98.2 HR 103 RR 19 B/P 110/74 SATS 91% ON 15L/NRB LABS: ABGs PH 7.454 PCO2 59.7 PO2 48.4 HCO3 40.9 O2 SAT 81.8 BE 14.9 IS;SOLU-MEDROL IV Q12HRS LASIX PO Q12HRS ALDACTONE PO BID HEPARIN SUBQ Q12HRS PROTONIX PO QS TELE
--- NOTE | 2019-09-26 19:10 | NUR ---
NURSE NOTES: Received report from REINALDO Briceño. Patient is asleep, arousable to name, lying in semi laughlin's; resting comfortably. A/Ox2. Denies pain at this time. No signs of acute distress noted. On nonrebreather mask @ 15L. Checked IV site and flushed. No signs of erythema, bleeding or infiltration noted. On bilateral soft wrist restraints, with good circulation, skin, and mobility. Bed at lowest position, brakes on, [id number]. Call light within reach. Will continue to monitor.
--- NOTE | 2019-09-26 19:42 | NUR ---
HAND-OFF: Report given to Romana Stevenson RN. Patient in supine position, sleeping, television on for stimulation, restraints in place, oxygen at 15 liters non-rebreather mask, bed in lowest position, call light within reach, two urinals at bedside.
[2019-09-26 20:00] VITALS: BP 93/66
--- NOTE | 2019-09-26 20:15 | Progress Note ---
DATE: 09/25/2019 CARDIOLOGY PROGRESS NOTE Late entry. SUBJECTIVE: The patient remains on a non-rebreather mask. Diuretic dose was decreased due to worsening metabolic alkalosis yesterday. The patient is still short of breath and hypoxic. OBJECTIVE: VITAL SIGNS: Blood pressure 115/62, pulse 111, and respirations 19. Afebrile. Monitor sinus tachycardia. LUNGS: Rales. CARDIAC: Regular rhythm, rapid rate. Normal S1 and S2. ABDOMEN: Soft. EXTREMITIES: No edema. IMPRESSION: 1. Hypoxia. 2. Acute on chronic diastolic congestive heart failure. 3. Metabolic alkalosis. PLAN: 1. Adjust diuretic dosing based on clinical parameters. 2. Recheck metabolic profile. 3. Oxygenation. 4. Respiratory hygiene. 5. Steroid taper per primary care physician. Ar Gomez M.D. DR: JACQUIE JOB#: [id number] CC:
--- NOTE | 2019-09-26 20:45 | Progress Note ---
DATE: 09/26/2019 CARDIOLOGY PROGRESS NOTE SUBJECTIVE: Condition unchanged. OBJECTIVE: VITAL SIGNS: Blood pressure 112/74, pulse 102, respirations 19. Afebrile. Monitor, sinus tachycardia. LUNGS: Diminished breath sounds with rales. CARDIAC: Regular rhythm, rapid rate. Normal S1, S2. ABDOMEN: Soft. EXTREMITIES: No edema. LABORATORY DATA: ABG - 7.45, 60, 48. IMPRESSION: 1. Hypoxia. 2. Respiratory alkalosis. 3. Acute on chronic diastolic congestive heart failure. 4. Nicotine addiction. 5. Secondary sinus tachycardia. PLAN: 1. Wean nicotine patch. 2. Adjust diuretic dosing. 3. Recheck chemistry panel. 4. High flow oxygen. 5. Steroids per primary care physician. Ar Gomez M.D. DR: JACQUIE JOB#: [id number] CC:
[2019-09-27] VITALS: BP 102/68
[2019-09-27 04:00] VITALS: BP 108/80
--- NOTE | 2019-09-27 05:14 | NUR ---
NURSE NOTES: Resting throughout the night. No significant change of condition noted. Will continue to monitor.
[2019-09-27] MEDS: LORazepam Inj 2mg/ml 1ml IV PRN ×2 (06:04→17:46)
--- NOTE | 2019-09-27 07:00 | NUR ---
HAND-OFF: Report given to REINALDO Garcia. Plan of care endorsed.
--- NOTE | 2019-09-27 07:02 | NUR ---
NURSE NOTES: Received report from Romana/RN, Patient is asleep, lying semi-laughlin's, resting comfortable, no acute distress/SOB noted. IV on right Hand, patent, saline locked. Bed in low position and locked, Call light within reach, Encouraged to use call light when needed. Will continue plan of care.
[2019-09-27 07:54] LABS: BASOPHILS % (AUTO) 3.6 % (0.0-2.0); HEMATOCRIT 27.4 % (42.0-52.0); HEMOGLOBIN 9.3 G/DL (14.2-18.0); LYMPHOCYTES % (AUTO) 6.3 % (20.0-45.0); MEAN CORPUSCULAR VOLUME 103 FL (80-99); MONOCYTES % (AUTO) 8.9 % (1.0-10.0); NEUTROPHILS % (AUTO) 81.2 % (45.0-75.0); PLATELET COUNT 159 K/UL (150-450); RED BLOOD COUNT 2.66 M/UL (4.70-6.10); RED CELL DISTRIBUTION WIDTH 12.1 % (11.6-14.8)
[2019-09-27 08:00] VITALS: BP 103/61
[2019-09-27 08:12] LABS: ALANINE AMINOTRANSFERASE 49 U/L (12-78); ALBUMIN 2.1 G/DL (3.4-5.0); ALBUMIN/GLOBULIN RATIO 0.4 (1.0-2.7); ALKALINE PHOSPHATASE 119 U/L (46-116); ANION GAP 0 mmol/L (5-15); ASPARTATE AMINO TRANSFERASE 66 U/L (15-37); BILIRUBIN,TOTAL 1.2 MG/DL (0.2-1.0); BLOOD UREA NITROGEN 28 mg/dL (7-18); CALCIUM 8.7 MG/DL (8.5-10.1); CHLORIDE 100 MMOL/L (98-107); CREATININE 0.8 MG/DL (0.55-1.30); POTASSIUM 3.8 MMOL/L (3.5-5.1); SODIUM 142 MMOL/L (136-145)
[2019-09-27 08:20] LABS: BILIRUBIN,DIRECT 0.8 MG/DL (0.0-0.3); CARBON DIOXIDE 43 MMOL/L (21-32)
--- NOTE | 2019-09-27 08:21 | Pulmonology Progress Note ---
Assessment/Plan Assessment/Plan Impression - MRSA Pneumonia - Persistent leucocytosis - Hypoxic respiratory Failure - CHFpEF - Atrial Fibrillation - Cirrhosis, h/o ETOH Use, ascites s/p Paracentesis - Homeless - Enterobacter UTI s/p rx - Thrombocytopenia - Anasarca PLAN lasix bid keep negative and monitor steroid off BIPAP - refusing on high flow oxygen at risk for intubation steroids with overall improvement in oxygen saturation; will monitor closely prognosis remains poor impression, plan, and exam edited and reviewed in detail care discussed with RN Subjective Allergies: Coded Allergies: PENICILLINS (Verified Allergy, Intermediate, Rash, 09/01/19) Patient stated at this time Subjective care noted saturations improved still on 100% Objective Last 24 Hour Vital Signs Date Time Temp Pulse Resp B/P (MAP) Pulse Ox O2 Delivery O2 Flow Rate FiO2 09/27/19 08:05 98 Non-Rebreather 15.0 100 09/27/19 04:00 96 09/27/19 04:00 96.9 96 20 108/80 (89) 100 09/27/19 00:00 97.0 101 20 102/68 (79) 100 09/27/19 00:00 98 09/26/19 21:00 Non-Rebreather 15.0 09/26/19 21:00 15.0 100 09/26/19 20:00 114 09/26/19 20:00 98.0 102 19 93/66 (75) 100 09/26/19 19:45 93 Non-Rebreather 15.0 100 09/26/19 16:00 121 09/26/19 16:00 98.2 103 19 110/74 (86) 100 09/26/19 12:00 96.6 106 19 103/70 (81) 99 09/26/19 09:03 91 Non-Rebreather 15.0 100 Intake and Output 09/26/19 09/27/19 19:00 07:00 Output Total 500 ml Balance -500 ml Output Urine Total 500 ml # Voids 2 Objective WDWN NAD reduced breath sounds bilaterally without rhonchi or wheeze [id number] without MRG NABS nontender no HSM some distention no CC some edema nonfocal Laboratory Tests 09/26/19 11:31: Arterial Blood pH 7.454H, Arterial Blood Partial Pressure CO2 59.7*H, Arterial Blood Partial Pressure O2 48.4*L, Arterial Blood HCO3 40.9*H, Arterial Blood Oxygen Saturation 81.8*L, Arterial Blood Base Excess 14.9*H, Giovanny Test Positive 09/27/19 06:57: White Blood Count 12.0H, Red Blood Count 2.66L, Hemoglobin 9.3L, Hematocrit 27.4L, Mean Corpuscular Volume 103H, Mean Corpuscular Hemoglobin 34.8H, Mean Corpuscular Hemoglobin Concent 33.9, Red Cell Distribution Width 12.1, Platelet Count 159, Mean Platelet Volume 7.3, Neutrophils (%) (Auto) 81.2H, Lymphocytes ( %) (Auto) 6.3L, Monocytes (%) (Auto) 8.9, Eosinophils (%) (Auto) 0.0, Basophils (%) (Auto) 3.6H, Sodium Level 142, Potassium Level 3.8, Chloride Level 100, Carbon Dioxide Level 43*H, Anion Gap 0L, Blood Urea Nitrogen 28H, Creatinine 0.8 , Estimat Glomerular Filtration Rate > 60, Glucose Level 120H, Calcium Level 8.7 , Magnesium Level 1.8, Total Bilirubin 1.2H, Direct Bilirubin 0.8H, Aspartate Amino Transf (AST/SGOT) 66H, Alanine Aminotransferase (ALT/SGPT) 49, Alkaline Phosphatase 119H, Pro-B-Type Natriuretic Peptide 4894H, Total Protein 7.1, Albumin 2.1L, Globulin 5.0, Albumin/Globulin Ratio 0.4L Current Medications Medications (Trade) Dose Ordered Sig/Akash Route PRN Reason Start Time Stop Time Status Last Admin Dose Admin Diphenhydramine HCl (Benadryl) 25 mg Q6H PRN ORAL Itching 09/25/19 08:15 10/06/19 14:14 09/26/19 10:22 Furosemide (Lasix) 40 mg DAILY ORAL 09/25/19 09:00 10/25/19 08:59 09/26/19 09:53 Heparin Sodium (Porcine) (Heparin 5000 units/ml) 5,000 units EVERY 12 HOURS SUBQ 09/25/19 09:00 09/28/19 09:29 09/25/19 09:11 Lorazepam (Ativan 2mg/ml 1ml) 1 mg Q4H PRN IV For Anxiety 09/26/19 13:00 10/03/19 12:59 09/27/19 06:04 Methylprednisolone Sodium Succinate (Solu-MEDROL) 60 mg EVERY 12 HOURS IVP 09/25/19 09:00 10/22/19 20:59 09/26/19 21:28 Multivitamins (Multivitamins) 1 tab DAILY ORAL 09/25/19 09:00 10/22/19 08:59 09/26/19 09:53 Nicotine (Nicoderm) 1 patch Q24H TDERMAL 09/25/19 21:00 10/20/19 20:59 09/26/19 21:28 Pantoprazole (Protonix) 40 mg ACBREAKFAST ORAL 09/26/19 06:30 10/22/19 08:59 09/27/19 05:55 Spironolactone (Aldactone) 25 mg BID ORAL 09/25/19 09:00 10/20/19 08:59 09/26/19 09:54 Thiamine HCl (Vitamin B1) 100 mg DAILY ORAL 09/25/19 09:00 10/22/19 08:59 09/26/19 09:53 Simon Lopez MD Sep 27, 2019 08:21
--- NOTE | 2019-09-27 08:30 | NUR ---
NURSE NOTES: Patient's carbon dioxide is 43, Dr. Cook is aware, no new order at this time.
--- NOTE | 2019-09-27 08:59 | General Progress Note ---
Assessment/Plan Problem List: (1) AMS (altered mental status) ICD Codes: R41.82 - Altered mental status, unspecified SNOMED: 506691531 Status: stable Assessment/Plan: o2 via nrb- try to wean bipap prn monitor cxr check abg diuresis/keep dry guarded agree with bronch if needed and pt agrees Subjective ROS Limited/Unobtainable: No Constitutional: Reports: malaise, weakness HEENT: Reports: no symptoms Cardiovascular: Reports: no symptoms Respiratory: Reports: cough, shortness of breath Gastrointestinal/Abdominal: Reports: no symptoms Genitourinary: Reports: no symptoms Neurologic/Psychiatric: Reports: no symptoms Endocrine: Reports: no symptoms Hematologic/Lymphatic: Reports: no symptoms Allergies: Coded Allergies: PENICILLINS (Verified Allergy, Intermediate, Rash, 09/01/19) Patient stated at this time All Systems: reviewed and negative except above Subjective no change. still with sob. requires NRB mask. resting. pulm noted pt keeps pulling of mask abg not any better Objective Last 24 Hour Vital Signs Date Time Temp Pulse Resp B/P (MAP) Pulse Ox O2 Delivery O2 Flow Rate FiO2 09/27/19 08:05 98 Non-Rebreather 15.0 100 09/27/19 08:00 97.0 104 16 103/61 (75) 100 09/27/19 04:00 96 09/27/19 04:00 96.9 96 20 108/80 (89) 100 09/27/19 00:00 97.0 101 20 102/68 (79) 100 09/27/19 00:00 98 09/26/19 21:00 Non-Rebreather 15.0 09/26/19 21:00 15.0 100 09/26/19 20:00 114 09/26/19 20:00 98.0 102 19 93/66 (75) 100 09/26/19 19:45 93 Non-Rebreather 15.0 100 09/26/19 16:00 121 09/26/19 16:00 98.2 103 19 110/74 (86) 100 09/26/19 12:00 96.6 106 19 103/70 (81) 99 09/26/19 09:03 91 Non-Rebreather 15.0 100 Intake and Output 09/26/19 09/27/19 19:00 07:00 Output Total 500 ml Balance -500 ml Output Urine Total 500 ml # Voids 2 Laboratory Tests 09/26/19 11:31: Arterial Blood pH 7.454H, Arterial Blood Partial Pressure CO2 59.7*H, Arterial Blood Partial Pressure O2 48.4*L, Arterial Blood HCO3 40.9*H, Arterial Blood Oxygen Saturation 81.8*L, Arterial Blood Base Excess 14.9*H, Giovanny Test Positive 09/27/19 06:57: White Blood Count 12.0H, Red Blood Count 2.66L, Hemoglobin 9.3L, Hematocrit 27.4L, Mean Corpuscular Volume 103H, Mean Corpuscular Hemoglobin 34.8H, Mean Corpuscular Hemoglobin Concent 33.9, Red Cell Distribution Width 12.1, Platelet Count 159, Mean Platelet Volume 7.3, Neutrophils (%) (Auto) 81.2H, Lymphocytes ( %) (Auto) 6.3L, Monocytes (%) (Auto) 8.9, Eosinophils (%) (Auto) 0.0, Basophils (%) (Auto) 3.6H, Sodium Level 142, Potassium Level 3.8, Chloride Level 100, Carbon Dioxide Level 43*H, Anion Gap 0L, Blood Urea Nitrogen 28H, Creatinine 0.8 , Estimat Glomerular Filtration Rate > 60, Glucose Level 120H, Calcium Level 8.7 , Magnesium Level 1.8, Total Bilirubin 1.2H, Direct Bilirubin 0.8H, Aspartate Amino Transf (AST/SGOT) 66H, Alanine Aminotransferase (ALT/SGPT) 49, Alkaline Phosphatase 119H, Pro-B-Type Natriuretic Peptide 4894H, Total Protein 7.1, Albumin 2.1L, Globulin 5.0, Albumin/Globulin Ratio 0.4L Height (Feet): 5 Height (Inches): 8.00 Weight (Pounds): 117 Objective General Appearance: WD/WN, lethargic. on bipap. Neck: supple Cardiovascular: regular rhythm Respiratory/Chest: lungs td rhonchi Abdomen: normal bowel sounds, non tender. small reducible periumbilical hernia Edema: no edema noted Arm (L), no edema noted Arm (R), no edema noted Leg (L), no edema noted Leg (R), no edema noted Pedal (L), no edema noted Pedal (R), no edema noted Generalized Henry Leavitt MD Sep 27, 2019 08:59
[2019-09-27] MEDS: Spironolactone 25mg tab ORAL SCH ×2 (09:47→17:46)
[2019-09-27] MEDS: Furosemide 40mg tab ORAL SCH (09:47)
[2019-09-27] MEDS: Thiamine 100mg tab ORAL SCH (09:47)
[2019-09-27] MEDS: Solu-MEDROL 125mg Inj IVP SCH ×2 (09:47→21:21)
[2019-09-27] MEDS: Heparin 5000 units/ml inj SUBQ SCH ×2 (09:48→21:19)
--- NOTE | 2019-09-27 10:18 | NUR ---
RADIOLOGY: PCXR COMPLETED 1015 HRS. NF
--- NOTE | 2019-09-27 10:31 | Diagnostic Imaging Report ---
Indication: Shortness of breath Technique: One view of the chest Comparison: 09/20/2019 Findings: Bilateral interstitial and airspace disease persists, largely unchanged allowing for differences in exposure technique and rotation. There is decreased pleural fluid on the left. The heart size is normal Impression: Decreased left pleural fluid. Unchanged interstitial and airspace infiltrates versus edema
--- NOTE | 2019-09-27 10:50 | Infectious Diseases Prog Note ---
Assessment/Plan Assessment/Plan antibiotics : none A 1. MRSA pneumonia s/p rx 2. respiratory failure 3. enterobacter UTI s/p rx 4. cirrhosis 5. ascites s/p paracentesis no SBP 6. thrombocytopenia 7. leucocytosis likely secondary to steroids P 1. observe off antibiotics 2. will follow up clinically Subjective ROS Limited/Unobtainable: Yes Allergies: Coded Allergies: PENICILLINS (Verified Allergy, Intermediate, Rash, 09/01/19) Patient stated at this time Objective Vital Signs Last 24 Hour Vital Signs Date Time Temp Pulse Resp B/P (MAP) Pulse Ox O2 Delivery O2 Flow Rate FiO2 09/27/19 08:05 98 Non-Rebreather 15.0 100 09/27/19 08:00 97.0 104 16 103/61 (75) 100 09/27/19 04:00 96 09/27/19 04:00 96.9 96 20 108/80 (89) 100 09/27/19 00:00 97.0 101 20 102/68 (79) 100 09/27/19 00:00 98 09/26/19 21:00 Non-Rebreather 15.0 09/26/19 21:00 15.0 100 09/26/19 20:00 114 09/26/19 20:00 98.0 102 19 93/66 (75) 100 09/26/19 19:45 93 Non-Rebreather 15.0 100 09/26/19 16:00 121 09/26/19 16:00 98.2 103 19 110/74 (86) 100 09/26/19 12:00 96.6 106 19 103/70 (81) 99 Height (Feet): 5 Height (Inches): 8.00 Weight (Pounds): 117 Respiratory/Chest: lungs clear Cardiovascular: normal rate, regular rhythm, no gallop/murmur Abdomen: soft, non tender Extremities: no edema Laboratory Tests Test 09/26/19 11:31 09/27/19 06:57 Arterial Blood pH 7.454 (7.350-7.450) Arterial Blood Partial Pressure CO2 59.7 mmHg (35.0-45.0) *H Arterial Blood Partial Pressure O2 48.4 mmHg (75.0-100.0) Arterial Blood HCO3 40.9 mmol/L (22.0-26.0) *H Arterial Blood Oxygen Saturation 81.8 % (95-100) *L Arterial Blood Base Excess 14.9 (-2-2) *H Giovanny Test Positive White Blood Count 12.0 K/UL (4.8-10.8) H Red Blood Count 2.66 M/UL (4.70-6.10) L Hemoglobin 9.3 G/DL (14.2-18.0) L Hematocrit 27.4 % (42.0-52.0) L Mean Corpuscular Volume 103 FL (80-99) H Mean Corpuscular Hemoglobin 34.8 PG (27.0-31.0) H Mean Corpuscular Hemoglobin Concent 33.9 G/DL (32.0-36.0) Red Cell Distribution Width 12.1 % (11.6-14.8) Platelet Count 159 K/UL (150-450) Mean Platelet Volume 7.3 FL (6.5-10.1) Neutrophils (%) (Auto) 81.2 % (45.0-75.0) H Lymphocytes (%) (Auto) 6.3 % (20.0-45.0) L Monocytes (%) (Auto) 8.9 % (1.0-10.0) Eosinophils (%) (Auto) 0.0 % (0.0-3.0) Basophils (%) (Auto) 3.6 % (0.0-2.0) H Sodium Level 142 MMOL/L (136-145) Potassium Level 3.8 MMOL/L (3.5-5.1) Chloride Level 100 MMOL/L (98-107) Carbon Dioxide Level 43 MMOL/L (21-32) *H Anion Gap 0 mmol/L (5-15) L Blood Urea Nitrogen 28 mg/dL (7-18) H Creatinine 0.8 MG/DL (0.55-1.30) Estimat Glomerular Filtration Rate > 60 mL/min (>60) Glucose Level 120 MG/DL (74-106) H Calcium Level 8.7 MG/DL (8.5-10.1) Magnesium Level 1.8 MG/DL (1.8-2.4) Total Bilirubin 1.2 MG/DL (0.2-1.0) H Direct Bilirubin 0.8 MG/DL (0.0-0.3) H Aspartate Amino Transf (AST/SGOT) 66 U/L (15-37) H Alanine Aminotransferase (ALT/SGPT) 49 U/L (12-78) Alkaline Phosphatase 119 U/L (46-116) H Pro-B-Type Natriuretic Peptide 4894 pg/mL (0-125) H Total Protein 7.1 G/DL (6.4-8.2) Albumin 2.1 G/DL (3.4-5.0) L Globulin 5.0 g/dL Albumin/Globulin Ratio 0.4 (1.0-2.7) L Current Medications Medications (Trade) Dose Ordered Sig/Akash Route PRN Reason Start Time Stop Time Status Last Admin Dose Admin Diphenhydramine HCl (Benadryl) 25 mg Q6H PRN ORAL Itching 09/25/19 08:15 10/06/19 14:14 09/26/19 10:22 Furosemide (Lasix) 40 mg DAILY ORAL 09/25/19 09:00 10/25/19 08:59 09/27/19 09:47 Heparin Sodium (Porcine) (Heparin 5000 units/ml) 5,000 units EVERY 12 HOURS SUBQ 09/25/19 09:00 09/28/19 09:29 09/27/19 09:48 Lorazepam (Ativan 2mg/ml 1ml) 1 mg Q4H PRN IV For Anxiety 09/26/19 13:00 10/03/19 12:59 09/27/19 06:04 Methylprednisolone Sodium Succinate (Solu-MEDROL) 60 mg EVERY 12 HOURS IVP 09/25/19 09:00 10/22/19 20:59 09/27/19 09:47 Multivitamins (Multivitamins) 1 tab DAILY ORAL 09/25/19 09:00 10/22/19 08:59 09/27/19 09:47 Nicotine (Nicoderm) 1 patch Q24H TDERMAL 09/25/19 21:00 10/20/19 20:59 09/26/19 21:28 Pantoprazole (Protonix) 40 mg ACBREAKFAST ORAL 09/26/19 06:30 10/22/19 08:59 09/27/19 05:55 Spironolactone (Aldactone) 25 mg BID ORAL 09/25/19 09:00 10/20/19 08:59 09/27/19 09:47 Thiamine HCl (Vitamin B1) 100 mg DAILY ORAL 09/25/19 09:00 10/22/19 08:59 09/27/19 09:47 Morena Erazo MD Sep 27, 2019 10:50
[2019-09-27 12:00] VITALS: BP 99/65
[2019-09-27 16:00] VITALS: BP 106/69
--- NOTE | 2019-09-27 17:43 | NUR ---
Public Health DentistSpecimen Technician SI: Respiratory Failure/MRSA PNA BP-99/65 HR-109 RR-22 T-97.7 O2 Sat-100% on 15L/NRBM WBC-12.0 Hgb-9.3 BNP-4894 CO2-43 CXR- Decreased left pleural fluid. Unchanged interstitial and airspace infiltrates vs edema IS: Solu Medrol 60mg IV every 12 hours Lasix 40mg PO BID Aldactone 25mg PO BID Protonix 40mg PO Daily Heparin Subcutaneous every 12 hours Telemetry Status
--- NOTE | 2019-09-27 18:08 | NUR ---
NURSE NOTES:WOUND CARE NOTES:Pt presented hyperpigmentation sacrum with loose dry/peeling skin. Non -tender when palpated.Scrotum is erythematous. Pt is incontinent of B and B per staff. Condom cath placed on pt by primary nurse. Pt educated on wound prevention and encouraged to frequently turn ,or at least hourly to prevent skin breakdown. No other skin concerns noted. Tx.plan: Apply Moisture Barrier Paste to sacrum. Cover with Optifoam drsg. Change every 3 days and prn. Apply Cavilon Skin Barrier to both heels. Cover each heel with Optifoam drsg. Change every 7 days and prn. Reposition at least every 2hours or as tolerated. Off-load heels with pillow.
--- NOTE | 2019-09-27 19:35 | NUR ---
NURSE NOTES: Received pt and report from REINALDO Garcia. Observed pt resting in bed with both eyes open. Pt is A/Ox1. pvc monitor is in placed; pt is sinus tachycardia. Pt is seen attempting to pull out IV and pvc monitor. Dr. Leavitt gave orders for bilateral soft wrist restraints. Will note and carry out. Bed is in the lowest position and locked. Call light and bedside table is within reach. No signs/symptoms of acute distress noted at this time. Will continue plan of care.
--- NOTE | 2019-09-27 19:45 | NUR ---
HAND-OFF: Report given to Yas/RN, Patient is in stable condition. Endorsed plan of care.
[2019-09-27 20:00] VITALS: BP 102/62
[2019-09-28] VITALS (32 sets, daily range): BP systolic 64–114; BP diastolic 22–64
--- NOTE | 2019-09-28 07:19 | NUR ---
HAND-OFF: Report given to REINALDO Garcia. Plan of care endorsed.
--- NOTE | 2019-09-28 07:24 | NUR ---
NURSE NOTES: Received report from Yas/RN, Patient is asleep, lying semi-laughlin's, resting comfortably, On non-rebreather mask, no acute distress/SOB noted. IV on right AC, patent, saline locked. Patient is on Bilateral soft wrist restrain for safety. Bed in low position and locked, Call light within reach, Encouraged to use call light when needed. Will continue plan of care.
--- NOTE | 2019-09-28 08:24 | General Progress Note ---
Assessment/Plan Problem List: (1) AMS (altered mental status) ICD Codes: R41.82 - Altered mental status, unspecified SNOMED: [id number] Status: stable Assessment/Plan: o2 via nrb- try to wean bipap prn monitor cxr check abg diuresis/keep dry guarded agree with bronch if needed and pt agrees Subjective ROS Limited/Unobtainable: No Constitutional: Reports: malaise, weakness HEENT: Reports: no symptoms Cardiovascular: Reports: no symptoms Respiratory: Reports: cough Gastrointestinal/Abdominal: Reports: no symptoms Genitourinary: Reports: no symptoms Neurologic/Psychiatric: Reports: no symptoms Endocrine: Reports: no symptoms Hematologic/Lymphatic: Reports: no symptoms Allergies: Coded Allergies: PENICILLINS (Verified Allergy, Intermediate, Rash, 09/01/19) Patient stated at this time All Systems: reviewed and negative except above Subjective no change. still with sob. requires NRB mask. resting. pulm noted pt keeps pulling of mask cxr slightly better? Objective Last 24 Hour Vital Signs Date Time Temp Pulse Resp B/P (MAP) Pulse Ox O2 Delivery O2 Flow Rate FiO2 09/28/19 08:00 98.2 128 26 114/64 (81) 93 09/28/19 07:09 96 Non-Rebreather 15.0 100 09/28/19 04:00 97.3 118 21 102/56 (71) 92 09/28/19 04:00 120 09/28/19 00:00 97.7 112 21 103/60 (74) 91 09/28/19 00:00 112 09/27/19 21:00 Non-Rebreather 15.0 09/27/19 21:00 15.0 100 09/27/19 20:00 117 09/27/19 20:00 97.5 117 20 102/62 (75) 93 09/27/19 19:05 99 Non-Rebreather 15.0 100 09/27/19 16:00 118 09/27/19 16:00 98.0 117 20 106/69 (81) 94 09/27/19 12:00 107 09/27/19 12:00 97.7 109 22 99/65 (76) 100 Intake and Output 09/27/19 09/28/19 19:00 07:00 Intake Total 360 ml Output Total 600 ml Balance -240 ml Intake Oral 360 ml Output Urine Total 600 ml # Voids 1 2 Height (Feet): 5 Height (Inches): 8.00 Weight (Pounds): 116 Objective General Appearance: WD/WN, lethargic. on bipap. Neck: supple Cardiovascular: regular rhythm Respiratory/Chest: lungs td rhonchi Abdomen: normal bowel sounds, non tender. small reducible periumbilical hernia Edema: no edema noted Arm (L), no edema noted Arm (R), no edema noted Leg (L), no edema noted Leg (R), no edema noted Pedal (L), no edema noted Pedal (R), no edema noted Generalized Henry Leavitt MD Sep 28, 2019 08:24
--- NOTE | 2019-09-28 08:44 | Pulmonology Progress Note ---
Assessment/Plan Assessment/Plan Impression - MRSA Pneumonia - Persistent leucocytosis - Hypoxic respiratory Failure - CHFpEF - Atrial Fibrillation - Cirrhosis, h/o ETOH Use, ascites s/p Paracentesis - Homeless - Enterobacter UTI s/p rx - Thrombocytopenia - Anasarca PLAN lasix bid keep negative and monitor steroid off BIPAP - refusing on high flow oxygen at risk for intubation steroids without improvement at present not safe for bronchoscopy as would need intubation initially prognosis remains poor impression, plan, and exam edited and reviewed in detail care discussed with RN Subjective Allergies: Coded Allergies: PENICILLINS (Verified Allergy, Intermediate, Rash, 09/01/19) Patient stated at this time Subjective care noted saturations not improved still on 100% Objective Last 24 Hour Vital Signs Date Time Temp Pulse Resp B/P (MAP) Pulse Ox O2 Delivery O2 Flow Rate FiO2 09/28/19 08:00 98.2 128 26 114/64 (81) 93 09/28/19 07:09 96 Non-Rebreather 15.0 100 09/28/19 04:00 97.3 118 21 102/56 (71) 92 09/28/19 04:00 120 09/28/19 00:00 97.7 112 21 103/60 (74) 91 09/28/19 00:00 112 09/27/19 21:00 Non-Rebreather 15.0 09/27/19 21:00 15.0 100 09/27/19 20:00 117 09/27/19 20:00 97.5 117 20 102/62 (75) 93 09/27/19 19:05 99 Non-Rebreather 15.0 100 09/27/19 16:00 118 09/27/19 16:00 98.0 117 20 106/69 (81) 94 09/27/19 12:00 107 09/27/19 12:00 97.7 109 22 99/65 (76) 100 Intake and Output 09/27/19 09/28/19 19:00 07:00 Intake Total 360 ml Output Total 600 ml Balance -240 ml Intake Oral 360 ml Output Urine Total 600 ml # Voids 1 2 Objective WDWN NAD reduced breath sounds bilaterally without rhonchi or wheeze [id number] without MRG NABS nontender no HSM some distention no CC some edema nonfocal Current Medications Medications (Trade) Dose Ordered Sig/Akash Route PRN Reason Start Time Stop Time Status Last Admin Dose Admin Diphenhydramine HCl (Benadryl) 25 mg Q6H PRN ORAL Itching 09/25/19 08:15 10/06/19 14:14 09/26/19 10:22 Furosemide (Lasix) 40 mg DAILY ORAL 09/25/19 09:00 10/25/19 08:59 09/27/19 09:47 Heparin Sodium (Porcine) (Heparin 5000 units/ml) 5,000 units EVERY 12 HOURS SUBQ 09/25/19 09:00 09/28/19 09:29 09/27/19 21:19 Lorazepam (Ativan 2mg/ml 1ml) 1 mg Q4H PRN IV For Anxiety 09/26/19 13:00 10/03/19 12:59 09/27/19 17:46 Methylprednisolone Sodium Succinate (Solu-MEDROL) 60 mg EVERY 12 HOURS IVP 09/25/19 09:00 10/22/19 20:59 09/27/19 21:21 Multivitamins (Multivitamins) 1 tab DAILY ORAL 09/25/19 09:00 10/22/19 08:59 09/27/19 09:47 Nicotine (Nicoderm) 1 patch Q24H TDERMAL 09/25/19 21:00 10/20/19 20:59 09/27/19 21:20 Pantoprazole (Protonix) 40 mg ACBREAKFAST ORAL 09/26/19 06:30 10/22/19 08:59 09/28/19 06:03 Spironolactone (Aldactone) 25 mg BID ORAL 09/25/19 09:00 10/20/19 08:59 09/27/19 17:46 Thiamine HCl (Vitamin B1) 100 mg DAILY ORAL 09/25/19 09:00 10/22/19 08:59 09/27/19 09:47 Simon Lopez MD Sep 28, 2019 08:44
[2019-09-28] MEDS: Solu-MEDROL 125mg Inj IVP SCH (09:16)
[2019-09-28] MEDS: Spironolactone 25mg tab ORAL SCH (09:16)
[2019-09-28] MEDS: Thiamine 100mg tab ORAL SCH (09:16)
[2019-09-28] MEDS: Furosemide 40mg tab ORAL SCH (09:16)
[2019-09-28] MEDS: Heparin 5000 units/ml inj SUBQ SCH (09:17)
--- NOTE | 2019-09-28 10:04 | Infectious Diseases Prog Note ---
Assessment/Plan Assessment/Plan IMPRESSION: 1. MRSA pneumonia, treated 2. Enterobacter UTI that was treated. 3. Cirrhosis with ascites. 4. MRSA colonization. 5. Anemia. 6. Thrombocytopenia. 7. Hypokalemia corrected 8. Hypercapnic respiratory failure. 9. Leukocytosis, steroid related RECOMMENDATIONS: Observe off antibiotic Poor prognosis Subjective ROS Limited/Unobtainable: Yes Constitutional: Denies: fever Neurologic: Reports: other - less responsive on restraint Allergies: Coded Allergies: PENICILLINS (Verified Allergy, Intermediate, Rash, 09/01/19) Patient stated at this time Objective Vital Signs Last 24 Hour Vital Signs Date Time Temp Pulse Resp B/P (MAP) Pulse Ox O2 Delivery O2 Flow Rate FiO2 09/28/19 08:00 98.2 128 26 114/64 (81) 93 09/28/19 07:09 96 Non-Rebreather 15.0 100 09/28/19 04:00 97.3 118 21 102/56 (71) 92 09/28/19 04:00 120 09/28/19 00:00 97.7 112 21 103/60 (74) 91 09/28/19 00:00 112 09/27/19 21:00 Non-Rebreather 15.0 09/27/19 21:00 15.0 100 09/27/19 20:00 117 09/27/19 20:00 97.5 117 20 102/62 (75) 93 09/27/19 19:05 99 Non-Rebreather 15.0 100 09/27/19 16:00 118 09/27/19 16:00 98.0 117 20 106/69 (81) 94 09/27/19 12:00 107 09/27/19 12:00 97.7 109 22 99/65 (76) 100 Height (Feet): 5 Height (Inches): 8.00 Weight (Pounds): 116 HEENT: mucous membranes moist Respiratory/Chest: decreased breath sounds, other - oxygen by rebreathing mask Cardiovascular: tachycardia Abdomen: soft, non tender Extremities: no edema Neurologic/Psychiatric: other - drowsy Current Medications Medications (Trade) Dose Ordered Sig/Akash Route PRN Reason Start Time Stop Time Status Last Admin Dose Admin Diphenhydramine HCl (Benadryl) 25 mg Q6H PRN ORAL Itching 09/25/19 08:15 10/06/19 14:14 09/26/19 10:22 Furosemide (Lasix) 40 mg DAILY ORAL 09/25/19 09:00 10/25/19 08:59 09/28/19 09:16 Lorazepam (Ativan 2mg/ml 1ml) 1 mg Q4H PRN IV For Anxiety 09/26/19 13:00 10/03/19 12:59 09/27/19 17:46 Methylprednisolone Sodium Succinate (Solu-MEDROL) 60 mg EVERY 12 HOURS IVP 09/25/19 09:00 10/22/19 20:59 09/28/19 09:16 Multivitamins (Multivitamins) 1 tab DAILY ORAL 09/25/19 09:00 10/22/19 08:59 09/28/19 09:16 Nicotine (Nicoderm) 1 patch Q24H TDERMAL 09/25/19 21:00 10/20/19 20:59 09/27/19 21:20 Pantoprazole (Protonix) 40 mg ACBREAKFAST ORAL 09/26/19 06:30 10/22/19 08:59 09/28/19 06:03 Spironolactone (Aldactone) 25 mg BID ORAL 09/25/19 09:00 10/20/19 08:59 09/28/19 09:16 Thiamine HCl (Vitamin B1) 100 mg DAILY ORAL 09/25/19 09:00 10/22/19 08:59 09/28/19 09:16 Jamie Swanson MD Sep 28, 2019 10:04
--- NOTE | 2019-09-28 12:00 | NUR ---
TRANSFER TO FLOOR: Patient transferred to ICU, per Dr. Lopez. Report given to Sukhdev/RN. Belongings check done with receiving nurse. Endorsed plan of care.
--- NOTE | 2019-09-28 12:01 | NUR ---
NURSE NOTES: RECEIVED PATIENT FROM TELE VIA HOSPITAL BED. REPORT GIVEN BY Kristin BANGURA RN. PATIENT IS LYING IN BED ON NRM AT 15L, NOTED SATURATION BETWEEN 88-89%. NO RESTRAINTS. NOTED SKIN ALTERATION. PIV ON R AC G20, SL. CALL LIGHT WITHIN REACH. BED AT LOWEST POSITION. SIDE RAILS UP. WILL CONTINUE TO MONITOR.
--- NOTE | 2019-09-28 12:12 | NUR ---
NURSE NOTES: PATIENT WAS ORALLY INTUBATEB, ETT 7.5 AT 24CM LIP LINE. DUE MEDS GIVEN BEFORE INTUBATION. WITH INITIAL VENT SETTINGS AC 14, TV 480, FiO2 75%, PEEP 5. FOR ABG.
--- NOTE | 2019-09-28 12:27 | Emergency Room Report ---
History of Present Illness General Chief Complaint: Altered Level of Consciousness Source: Patient, EMS Present Illness HPI 59-year-old male presents with acute respiratory distress, altered, confused, tachypneic and short of breath, history is limited due to patient's medical condition I was called emergently for intubation Allergies: Coded Allergies: PENICILLINS (Verified Allergy, Intermediate, Rash, 09/01/19) Patient stated at this time Patient History Limited by: medical condition - Confused altered Past Medical History: see triage record Reviewed Nursing Documentation: PMH: Agreed; PSxH: Agreed Nursing Documentation-PMH Past Medical History Deferred: Pt Cognitively Impaired Past Medical History: Deferred Hx Gastrointestinal Problems: Yes - HERNIA, unable to assess d/t ALOC Review of Systems All Other Systems: limited - Confused altered Physical Exam Vital Signs Date Time Temp Pulse Resp B/P (MAP) Pulse Ox O2 Delivery O2 Flow Rate FiO2 09/24/19 07:00 96 Non-Rebreather 15.0 100 09/24/19 07:43 113 09/24/19 08:00 97.4 18 102/62 (75) Sp02 EP Interpretation: abnormal - SaO2 dropping despite nonrebreather mask General Appearance: severe distress Head: normocephalic, atraumatic Eyes: bilateral eye PERRL, bilateral eye EOMI ENT: dry mucus membranes Neck: supple Respiratory: respiratory distress, decreased breath sounds, accessory muscle use, rales, rhonchi Cardiovascular #1: no edema, no murmur, tachycardia Gastrointestinal: non tender, soft Neuologic: Unresponsive Procedures Critical Care Time Critical Care Time Given the critical condition in which the patient arrived, the patient was immediately assessed by myself and the nurse, and cardiac monitoring initiated due to the potential for rapid decompensation of the patient's clinical condition. During the course of the patient's stay, I spent a considerable amount of time at the bedside performing serial re-evaluations of the patient's hemodynamic and clinical status because of the recognized potential threat to life or limb in this condition. I then had a chance to review not only all of the available current laboratory and radiographic studies obtained today, but I also reviewed old records available to me at the time. Additionally, any ancillary information available including shuttle final inspector records were reviewed. Sequential vital signs were obtained. Critical Care time of 33 minutes was performed exclusive of billable procedures. Intubation Intubation : Consent: Emergent Time of Intubation: 12:15 Intubation Method: orotracheal Tube Size (cm): 7.5 Medications: Etomidate Breath Sounds after Intubation: equal Intubation Complications: no complications Post Intubation Xray: Yes Progress/Xray Impression: ETT well seated Attempts: One Patient Tolerated: Well Complications: None Medical Decision Making Diagnostic Impression: Primary Impression: Respiratory failure, acute Qualified Codes: J96.01 - Acute respiratory failure with hypoxia Additional Impression: Hypoxia ER Course 59-year-old male presents with acute respiratory distress, patient emergently intubated, vent titration in order to optimize oxygenation at bedside additional ABG and interpretation of x-ray was required Made primary physician aware Laboratory Tests Test 09/27/19 06:57 09/28/19 10:45 White Blood Count 12.0 K/UL (4.8-10.8) H Red Blood Count 2.66 M/UL (4.70-6.10) L Hemoglobin 9.3 G/DL (14.2-18.0) L Hematocrit 27.4 % (42.0-52.0) L Mean Corpuscular Volume 103 FL (80-99) H Mean Corpuscular Hemoglobin 34.8 PG (27.0-31.0) H Mean Corpuscular Hemoglobin Concent 33.9 G/DL (32.0-36.0) Red Cell Distribution Width 12.1 % (11.6-14.8) Platelet Count 159 K/UL (150-450) Mean Platelet Volume 7.3 FL (6.5-10.1) Neutrophils (%) (Auto) 81.2 % (45.0-75.0) H Lymphocytes (%) (Auto) 6.3 % (20.0-45.0) L Monocytes (%) (Auto) 8.9 % (1.0-10.0) Eosinophils (%) (Auto) 0.0 % (0.0-3.0) Basophils (%) (Auto) 3.6 % (0.0-2.0) H Sodium Level 142 MMOL/L (136-145) Potassium Level 3.8 MMOL/L (3.5-5.1) Chloride Level 100 MMOL/L (98-107) Carbon Dioxide Level 43 MMOL/L (21-32) *H Anion Gap 0 mmol/L (5-15) L Blood Urea Nitrogen 28 mg/dL (7-18) H Creatinine 0.8 MG/DL (0.55-1.30) Estimate Glomerular Filtration Rate > 60 mL/min (>60) Glucose Level 120 MG/DL (74-106) H Calcium Level 8.7 MG/DL (8.5-10.1) Magnesium Level 1.8 MG/DL (1.8-2.4) Total Bilirubin 1.2 MG/DL (0.2-1.0) H Direct Bilirubin 0.8 MG/DL (0.0-0.3) H Aspartate Amino Transferase (AST) 66 U/L (15-37) H Alanine Aminotransferase (ALT) 49 U/L (12-78) Alkaline Phosphatase 119 U/L (46-116) H Pro-B-Type Natriuretic Peptide 4894 pg/mL (0-125) H Total Protein 7.1 G/DL (6.4-8.2) Albumin 2.1 G/DL (3.4-5.0) L Globulin 5.0 g/dL Albumin/Globulin Ratio 0.4 (1.0-2.7) L Arterial Blood pH 7.491 (7.350-7.450) Arterial Blood Partial Pressure CO2 56.4 mmHg (35.0-45.0) *H Arterial Blood Partial Pressure O2 56.9 mmHg (75.0-100.0) L Arterial Blood HCO3 42.1 mmol/L (22.0-26.0) *H Arterial Blood Oxygen Saturation 89.4 % (95-100) *L Arterial Blood Base Excess 16.4 (-2-2) *H Giovanny Test Positive Last Vital Signs Date Time Temp Pulse Resp B/P (MAP) Pulse Ox O2 Delivery O2 Flow Rate FiO2 09/28/19 08:00 98.2 128 26 114/64 (81) 93 09/28/19 07:09 Non-Rebreather 15.0 100 Disposition: ADMITTED INPATIENT Condition: Serious Scripts Unable to Obtain Active Prescriptions or Reported Meds Referrals: NOT CHOSEN IPA/,REFERRING (PCP) Saul Jordan MD Sep 28, 2019 12:27
--- NOTE | 2019-09-28 12:35 | NUR ---
NURSE NOTES: SEEN AND EXAMINED BY DR GUERRA. AWARE OF THE HR. WILL CONTINUE TO MONITOR.
--- NOTE | 2019-09-28 12:49 | NUR ---
NURSE NOTES: OGT INSERTED. AWAITNG FOR XRAY.
--- NOTE | 2019-09-28 12:53 | NUR ---
NURSE NOTES: CALLED AND LEFT A MESSAGE TO DR Bg ARCHIBALD FOR TEMP. WILL CONTINUE TO MONITOR.
[2019-09-28] MEDS ORDERED: LORazepam Inj 2mg/ml 1ml IV PRN (13:25)
--- NOTE | 2019-09-28 13:27 | NUR ---
NURSE NOTES: INFORMED DR JR RANGEL. AWAITING FOR CALL BACK.
[2019-09-28] MEDS ORDERED: Rocuronium Bromide 50mg/5ml Inj IV ONE (14:24)
[2019-09-28] MEDS ORDERED: Etomidate 40mg/20ml Inj IV ONE (14:24)
--- NOTE | 2019-09-28 15:02 | NUR ---
RADIOLOGY DEPT., CHEST AND ABDOMEN X-RAYS FOR ETT PLCMT AND ORAL GASTRIC TUBE PLCMT COMPLETED.-P.DYE
--- NOTE | 2019-09-28 15:32 | NUR ---
CASE MANAGEMENT:REVIEW 09/27/19 SI: ENCEPHALOPATHY D/T PCP RESPIRATORY FAILURE. MRSA PNA 100.2 140 24 106/60 SATS~93% ON 100% NON REBREATHER PC02+73.9 PO2-66.5 HCO3+47.3 IS: INTUBATED FENTANYL GTT IV SOLUMEDROL Q12 : TRANSFER TO ICU
[2019-09-28] MEDS ORDERED: Acetaminophen 650mg/20.3ml NG PRN (15:45)
--- NOTE | 2019-09-28 16:00 | Diagnostic Imaging Report ---
Indication: Shortness of breath Technique: One view of the chest Comparison: 09/27/2018 Findings: Interim endotracheal intubation, endotracheal tube tip projecting approximately 3 cm above the carmen. Interim nasogastric intubation, nasogastric tube tip projected at the level gastric fundus body junction. There is increasing interstitial and airspace disease bilaterally. The heart size is normal. Embolic coils are seen in the left upper quadrant Impression: Satisfactory endotracheal and nasogastric intubation Increased parenchymal disease bilaterally
--- NOTE | 2019-09-28 16:02 | Diagnostic Imaging Report ---
Indication: Status post orogastric tube placement Technique: Supine view of the abdomen Comparison: none Findings: There is an orogastric tube in place, tip projected at the level of the fundus body junction, proximal port well distal to the expected level of the gastric esophageal junction. There is a TIPS shunt present. Bowel gas pattern is unremarkable. Vascular embolic coils are seen in the left upper quadrant. There is mild lumbar scoliotic deformity and considerable degenerative lumbar spondylosis Impression: Satisfactory orogastric intubation Other findings as noted Patient's nurse notified of findings at the time of interpretation
--- NOTE | 2019-09-28 16:41 | NUR ---
NURSE NOTES: INFORMED DR WOODS FOR LOW BP. ORDERED TO GIVE BOLUS. WILL CONTINUE TO MONITOR.
[2019-09-28] MEDS: Piperacillin/Tazobactam 3.375 GM in NS 110 ML IVPB SCH ×2 (17:05→22:41)
[2019-09-28 17:53] LABS: HEMATOCRIT 29.1 % (42.0-52.0); HEMOGLOBIN 10.1 G/DL (14.2-18.0); MEAN CORPUSCULAR VOLUME 102 FL (80-99); PLATELET COUNT 125 K/UL (150-450); RED BLOOD COUNT 2.87 M/UL (4.70-6.10); RED CELL DISTRIBUTION WIDTH 12.1 % (11.6-14.8); WHITE BLOOD COUNT 18.7 K/UL (4.8-10.8)
[2019-09-28] MEDS ORDERED: Spironolactone 25mg tab ORAL SCH (18:00)
[2019-09-28 18:13] LABS: ANION GAP 3 mmol/L (5-15); BLOOD UREA NITROGEN 42 mg/dL (7-18); CARBON DIOXIDE 40 MMOL/L (21-32); CHLORIDE 103 MMOL/L (98-107); POTASSIUM 3.8 MMOL/L (3.5-5.1); SODIUM 147 MMOL/L (136-145)
[2019-09-28 18:14] LABS: ALANINE AMINOTRANSFERASE 38 U/L (12-78); ALBUMIN 1.9 G/DL (3.4-5.0); ALBUMIN/GLOBULIN RATIO 0.4 (1.0-2.7); ALKALINE PHOSPHATASE 91 U/L (46-116); ASPARTATE AMINO TRANSFERASE 44 U/L (15-37); BILIRUBIN,TOTAL 1.9 MG/DL (0.2-1.0); CALCIUM 8.3 MG/DL (8.5-10.1); CREATININE 1.6 MG/DL (0.55-1.30)
[2019-09-28 18:15] LABS: BILIRUBIN,DIRECT 1.2 MG/DL (0.0-0.3)
--- NOTE | 2019-09-28 18:46 | NUR ---
NURSE NOTES: CENTRAL LINE INSERTED BY ER DOCTOR ON LEFT FEMORAL.
--- NOTE | 2019-09-28 19:28 | NUR ---
HAND-OFF: Report given to Kristin Lovell RN.
--- NOTE | 2019-09-28 19:30 | NUR ---
NURSE NOTES: SBAR from Sukhdev NAJERA. Patient recently intubated today around noon. ETT 7.2/24cm at lower lip. AC 14/480tv,100% FiO2 and peep of 8. SpO2 right now fluctuating around 89%-95%. Currently NPO at this time. Patient is Awake but not alert at this time. Patient is able to move upper extremities and lower extremities mildly. OGT noted. Left femoral TLC running Levophed at 20mcg/min. Patient is sinus tach in the 130s. Patient is hot to the touch. Safety measures are in place. Will continue to monitor.
[2019-09-28] MEDS: Dyna-Hex 2% Top Sol 2oz TOPIC SCH (19:47)
--- NOTE | 2019-09-28 19:47 | NUR ---
NURSE NOTES: Patients temperature is 101.3F Tylenol 650mg via NGT given Cooling measure initiated. Patient is hot to touch
--- NOTE | 2019-09-28 19:58 | NUR ---
NURSE NOTES: Blood cultures taken, drawn peripherally.
--- NOTE | 2019-09-28 20:00 | NUR ---
NURSE NOTES: Patient had normal medium soft/formed BM Patient cleaned and also given cooling bath cleaning Levophed increased to 30mcg/min BP was 66/[address]
--- NOTE | 2019-09-28 20:52 | NUR ---
NURSE NOTES: Called Dr. Gomez and left message regarding patients low BP. and other vitals, left message regarding adding another pressor.
[2019-09-28] MEDS ORDERED: Solu-MEDROL 125mg Inj IVP SCH (21:00)
--- NOTE | 2019-09-28 21:22 | NUR ---
NURSE NOTES: Dr. Gomez called back, I updated him on patients current condition about BP.Dr. Gomez gave telephone orders for a 1 X 1000ml NS bolus.
--- NOTE | 2019-09-28 21:34 | NUR ---
NURSE NOTES: 1 L NS bolus hung Scheduled Solumedrol IVP given BP: 71/41 HR: 137 ST
--- NOTE | 2019-09-28 22:30 | NUR ---
NURSE NOTES: Dr. Gomez called back to get updates on patients BP and overall condition, no new orders received, will continue to monitor.
--- NOTE | 2019-09-28 23:06 | Emergency Room Report ---
Physical Exam Vital Signs Date Time Temp Pulse Resp B/P (MAP) Pulse Ox O2 Delivery O2 Flow Rate FiO2 09/24/19 07:00 96 Non-Rebreather 15.0 100 09/24/19 07:43 113 09/24/19 08:00 97.4 18 102/62 (75) Medical Decision Making Diagnostic Impression: Primary Impression: Respiratory failure, acute Qualified Codes: J96.01 - Acute respiratory failure with hypoxia Additional Impression: Hypoxia ER Course Called the ICU to place a central line for hypotension. Patient is intubated and sedated. Left femoral line was placed under ultrasound guidance without difficulty. Please see procedure section of this note for full details. Tolerated procedure well without complications. Further care per ICU team. Last Vital Signs Date Time Temp Pulse Resp B/P (MAP) Pulse Ox O2 Delivery O2 Flow Rate FiO2 09/28/19 22:00 78/37 09/28/19 21:45 136 29 99 09/28/19 21:30 99.7 09/28/19 21:21 75 09/28/19 16:00 Mechanical Ventilator 09/28/19 07:09 15.0 Disposition: ADMITTED INPATIENT Condition: Serious Scripts Unable to Obtain Active Prescriptions or Reported Meds Referrals: NOT CHOSEN IPA/MD,REFERRING (PCP) Procedures Central Line Central Line : Consent: Emergent Central Line Lumen: triple Maximal Sterile Barrier Tech: yes cap, yes mask, yes sterile gown, yes sterile gloves, yes large sterile sheet, yes hand hygiene, yes chlorhexidine prep Central Line Postion: femoral (L) Anesthesia: Patient sedated and intubated Complications: none Central Line Post Position: sutured, good blood return Attempts: One Patient Tolerated: Well Complications: None Sunil Cavanaugh MD Sep 28, 2019 23:06
[2019-09-28] MEDS: Norepinephrine Bitartrate 8 MG in D5W 500ml 550 ML IV SCH (23:19)
[2019-09-29] VITALS (54 sets, daily range): BP systolic 58–110; BP diastolic 34–60
--- NOTE | 2019-09-29 | NUR ---
NURSE NOTES: Current BP is 91/41 (51) Remains on Levophed at 30mcg/min. HR has decreased since start of shift. Currently its 115 ST temperature taken 98.2F (ax). Patient is able to move lower extremities FiO2 decreased to 80%
--- NOTE | 2019-09-29 02:00 | NUR ---
NURSE NOTES: Patient remains on Levophed at 30mcg/min BP: 79/[address] Does go into the lower 120s at times. Afebrile at this time. Cool to touch FiO2 at 80%, Spo2 95% Patient able to move lower extremities slightly Patient still not fully awake but can move head side to side sometimes. Deep and oral suctioning given. Patient continues to have bloody tinge sputum.
[2019-09-29] MEDS: Norepinephrine Bitartrate 8 MG in D5W 500ml 550 ML IV SCH ×5 (03:52→23:28)
--- NOTE | 2019-09-29 04:00 | NUR ---
NURSE NOTES: Levophed remains at 30mcg/min Repositioned patient oral care performed Patient bathed and new linen applied. HR still in the 110s - 120s ST. Afebrile BP is 85/36
[2019-09-29 04:54] LABS: HEMATOCRIT 29.4 % (42.0-52.0); HEMOGLOBIN 9.4 G/DL (14.2-18.0); MEAN CORPUSCULAR VOLUME 107 FL (80-99); PLATELET COUNT 102 K/UL (150-450); RED BLOOD COUNT 2.74 M/UL (4.70-6.10); RED CELL DISTRIBUTION WIDTH 14.1 % (11.6-14.8); WHITE BLOOD COUNT 18.6 K/UL (4.8-10.8)
[2019-09-29 05:34] LABS: ALANINE AMINOTRANSFERASE 34 U/L (12-78); ALBUMIN 1.7 G/DL (3.4-5.0); ALBUMIN/GLOBULIN RATIO 0.4 (1.0-2.7); ALKALINE PHOSPHATASE 67 U/L (46-116); ANION GAP 15 mmol/L (5-15); ASPARTATE AMINO TRANSFERASE 47 U/L (15-37); BILIRUBIN,TOTAL 2.3 MG/DL (0.2-1.0); BLOOD UREA NITROGEN 51 mg/dL (7-18); CALCIUM 7.8 MG/DL (8.5-10.1); CARBON DIOXIDE 29 MMOL/L (21-32); CHLORIDE 101 MMOL/L (98-107); CREATININE 2.4 MG/DL (0.55-1.30); POTASSIUM 3.9 MMOL/L (3.5-5.1); SODIUM 145 MMOL/L (136-145)
[2019-09-29] MEDS: Piperacillin/Tazobactam 3.375 GM in NS 110 ML IVPB SCH (05:36)
[2019-09-29 05:39] LABS: BILIRUBIN,DIRECT 1.4 MG/DL (0.0-0.3)
--- NOTE | 2019-09-29 06:00 | NUR ---
NURSE NOTES: Tried to cesar down pressors but was unsuccessful. Blood pressure would drop into the lower 70s Systolically when tried to taper remains maxed out on pressor still afebrile HR [address]
--- NOTE | 2019-09-29 07:00 | NUR ---
RESPIRATORY NOTE: Received pt on ordered vent settings. Pt is airway is patent and secured. Suctioned pt prn. Vent alarms are on and audible. Vent is plugged into red outlet. Will monitor pt progress.
--- NOTE | 2019-09-29 07:10 | NUR ---
NURSE NOTES: MD Dagmar made rounds, updates given in regards, informed MD PT is maxed on Levophed currently, lactic acid this morning is 12.8; will continue to monitor PT.
--- NOTE | 2019-09-29 07:17 | NUR ---
HAND-OFF: Report given to Dave NAJERA.
--- NOTE | 2019-09-29 07:18 | NUR ---
NURSE NOTES: Late entry: PT and report received from REINALDO Aiken; PT received intubated ETT 7.5 @ 24 mid-lip; with vent settings AC 14, TV 480, 70%, peep 5; alert, not orientated, non-verbal, eyes open bilateral pupils fixed 3mm each; received with bilateral wrist restraints PT observed crossing and moving legs, potline monitor shows ST HR 125; BP 85/46, saturating 91%; no S/S of respiratory distress, NPO status, during morning rounds with PM nurse, observed PT having a BM, meatal care, complete linens changed, cleaned and dried PT; PT has R-AC 20g, and L-fem TLC infusing levophed @ 30mcg/min; will continue to monitor lactic acid lvls, ABG, and continue with plan of care for PT.
--- NOTE | 2019-09-29 07:52 | General Progress Note ---
Assessment/Plan Problem List: (1) AMS (altered mental status) ICD Codes: R41.82 - Altered mental status, unspecified SNOMED: 064219039 (2) Sepsis ICD Codes: A41.9 - Sepsis, unspecified organism SNOMED: 53137856 (3) Shock ICD Codes: R57.9 - Shock, unspecified SNOMED: 62180534 (4) Cirrhosis ICD Codes: K74.60 - Unspecified cirrhosis of liver SNOMED: 57183647 (5) Hypoxia ICD Codes: R09.02 - Hypoxemia SNOMED: 519304090 (6) Respiratory failure, acute ICD Codes: J96.00 - Acute respiratory failure, unspecified whether with hypoxia or hypercapnia SNOMED: 12945544 Qualifiers: Qualified Codes: J96.01 - Acute respiratory failure with hypoxia Status: stable Assessment/Plan: vent support pressors ivf stress dose steroids iv abx critical and guarded poor prognosis Subjective ROS Limited/Unobtainable: Yes Constitutional: Reports: malaise, weakness HEENT: Reports: no symptoms Cardiovascular: Reports: no symptoms Respiratory: Reports: shortness of breath Gastrointestinal/Abdominal: Reports: no symptoms Genitourinary: Reports: no symptoms Neurologic/Psychiatric: Reports: anxiety, emotional problems Endocrine: Reports: no symptoms Hematologic/Lymphatic: Reports: no symptoms Allergies: Coded Allergies: PENICILLINS (Verified Allergy, Intermediate, Rash, 09/01/19) Patient stated at this time All Systems: reviewed and negative except above Subjective intubated for resp distress. hypotensive. worsening renal insuff and lactic acidosis Objective Last 24 Hour Vital Signs Date Time Temp Pulse Resp B/P (MAP) Pulse Ox O2 Delivery O2 Flow Rate FiO2 09/29/19 07:00 126 31 80/48 (59) 93 09/29/19 06:00 125 28 96/40 (58) 93 09/29/19 05:45 124 28 99/44 (62) 94 09/29/19 05:30 122 29 94/40 (58) 93 09/29/19 05:15 121 25 99/45 (63) 94 09/29/19 05:00 121 29 90/44 (59) 94 09/29/19 04:54 121 28 70 09/29/19 04:45 119 25 90/46 (61) 94 09/29/19 04:30 98.1 122 31 88/40 (56) 93 09/29/19 04:15 122 30 90/41 (57) 93 09/29/19 04:00 122 27 97/40 (59) 94 09/29/19 04:00 Mechanical Ventilator 09/29/19 04:00 124 09/29/19 04:00 88/40 09/29/19 04:00 70 09/29/19 03:52 84/39 09/29/19 03:51 84/39 09/29/19 03:45 123 33 84/39 (54) 93 09/29/19 03:30 117 26 88/43 (58) 95 09/29/19 03:29 109 19 80 09/29/19 03:24 173 27 83/60 (68) 93 09/29/19 03:15 120 27 90/42 (58) 95 09/29/19 03:00 122 30 97/44 (61) 96 09/29/19 03:00 97/44 09/29/19 02:45 123 31 91/44 (60) 95 09/29/19 02:30 124 33 96/43 (60) 95 09/29/19 02:15 123 25 86/45 (59) 96 09/29/19 02:00 111 19 79/34 (49) 97 09/29/19 01:00 124 33 90/45 (60) 98 09/29/19 01:00 91/44 09/29/19 01:00 91/38 09/29/19 00:45 120 24 91/38 (55) 100 09/29/19 00:42 112 19 80 09/29/19 00:30 112 17 88/40 (56) 100 09/29/19 00:15 112 16 84/37 (53) 100 09/29/19 00:00 Mechanical Ventilator 09/29/19 00:00 118 09/29/19 00:00 91/41 09/29/19 00:00 98.2 112 18 91/41 (58) 100 09/29/19 00:00 80 09/28/19 23:45 119 29 102/45 (64) 93 09/28/19 23:30 115 17 75/40 (52) 100 09/28/19 23:19 64/35 09/28/19 23:15 114 16 64/35 (45) 100 09/28/19 23:10 118 29 75 09/28/19 23:00 64/35 09/28/19 23:00 114 21 77/39 (52) 100 09/28/19 22:45 118 21 80/40 (53) 100 09/28/19 22:41 77/39 09/28/19 22:30 99.1 120 24 83/37 (52) 100 09/28/19 22:15 124 19 90/38 (55) 98 09/28/19 22:00 133 28 77/41 (53) 99 09/28/19 22:00 78/37 09/28/19 21:45 136 29 78/42 (54) 99 09/28/19 21:30 99.7 135 24 71/41 (51) 98 09/28/19 21:21 124 30 75 09/28/19 21:06 70/34 09/28/19 21:00 70/34 09/28/19 20:35 99.9 09/28/19 20:15 131 25 94/41 (58) 93 09/28/19 20:00 100 09/28/19 20:00 139 25 81/32 (48) 98 09/28/19 20:00 66/29 09/28/19 20:00 Mechanical Ventilator 09/28/19 20:00 140 09/28/19 19:45 136 27 91/27 (48) 99 09/28/19 19:34 133 23 86/33 (50) 99 09/28/19 19:33 101.3 123 24 67/27 (40) 99 09/28/19 19:30 125 21 64/22 (36) 99 09/28/19 19:17 128 28 75 09/28/19 19:00 138 32 93/39 (57) 95 09/28/19 19:00 79/39 09/28/19 18:53 82/39 09/28/19 18:00 140 29 72/30 (44) 94 09/28/19 17:00 120 18 91/36 (54) 99 09/28/19 16:42 116 16 75 09/28/19 16:30 98.6 122 17 72/39 (50) 100 09/28/19 16:00 128 19 82/41 (55) 96 09/28/19 16:00 Mechanical Ventilator 09/28/19 16:00 21 Mechanical Ventilator 100 09/28/19 15:55 134 16 97 Mechanical Ventilator 100 09/28/19 15:34 132 09/28/19 15:30 128 19 74/45 (55) 96 09/28/19 15:29 134 22 100 09/28/19 15:00 21 Mechanical Ventilator 100 09/28/19 15:00 140 32 92/50 (64) 93 09/28/19 14:45 140 29 92/50 (64) 92 09/28/19 14:30 134 21 96/51 (66) 89 09/28/19 14:15 140 27 92/50 (64) 88 09/28/19 14:08 29 Mechanical Ventilator 85 09/28/19 14:00 141 27 96/51 (66) 89 09/28/19 13:00 142 20 108/54 (72) 92 09/28/19 12:35 144 20 100 09/28/19 12:12 75 09/28/19 12:00 98.4 140 24 110/55 (73) 93 09/28/19 12:00 135 09/28/19 12:00 Mechanical Ventilator 09/28/19 12:00 100.2 135 20 106/60 (75) 95 09/28/19 11:47 135 09/28/19 08:00 130 09/28/19 08:00 98.2 128 26 114/64 (81) 93 Intake and Output 09/28/19 09/29/19 19:00 07:00 Intake Total 1267.5 ml 1189.74 ml Output Total 250 ml Balance 1017.5 ml 1189.74 ml Intake Oral 120 ml IV Total 1147.5 ml 1189.74 ml Output Urine Total 250 ml # Voids 1 # Bowel Movements 2 Laboratory Tests 09/28/19 10:45: Arterial Blood pH 7.491H, Arterial Blood Partial Pressure CO2 56.4*H, Arterial Blood Partial Pressure O2 56.9L, Arterial Blood HCO3 42.1*H, Arterial Blood Oxygen Saturation 89.4*L, Arterial Blood Base Excess 16.4*H, Giovanny Test Positive 09/28/19 13:10: Arterial Blood pH 7.424, Arterial Blood Partial Pressure CO2 73.9*H, Arterial Blood Partial Pressure O2 66.5L, Arterial Blood HCO3 47.3*H, Arterial Blood Oxygen Saturation 92.9L, Arterial Blood Base Excess 19.5*H, Giovanny Test Positive 09/28/19 17:40: White Blood Count 18.7#H, Red Blood Count 2.87L, Hemoglobin 10.1L, Hematocrit 29.1L, Mean Corpuscular Volume 102H, Mean Corpuscular Hemoglobin 35.3H, Mean Corpuscular Hemoglobin Concent 34.8, Red Cell Distribution Width 12.1, Platelet Count 125L, Mean Platelet Volume 6.3L, Neutrophils (%) (Auto) , Lymphocytes (%) (Auto) , Monocytes (%) (Auto) , Eosinophils (%) (Auto) , Basophils (%) (Auto) , Differential Total Cells Counted 100, Neutrophils % (Manual) 65, Lymphocytes % ( Manual) 6L, Monocytes % (Manual) 14H, Eosinophils % (Manual) 0, Basophils % ( Manual) 0, Metamyelocytes % 2H, Band Neutrophils 13H, Platelet Estimate DecreasedL, Platelet Morphology Normal, Polychromasia 1+, Macrocytosis 2+, Sodium Level 147H, Potassium Level 3.8, Chloride Level 103, Carbon Dioxide Level 40H, Anion Gap 3L, Blood Urea Nitrogen 42H, Creatinine 1.6#H, Estimat Glomerular Filtration Rate 44.3, Glucose Level 92, Calcium Level 8.3L, Total Bilirubin 1.9H, Direct Bilirubin 1.2H, Aspartate Amino Transf (AST/SGOT) 44H, Alanine Aminotransferase (ALT/SGPT) 38, Alkaline Phosphatase 91, Total Protein 6.4, Albumin 1.9L, Globulin 4.5, Albumin/Globulin Ratio 0.4L 09/28/19 20:30: Lactic Acid Level 9.00H 09/29/19 04:00: White Blood Count 18.6H, Red Blood Count 2.74L, Hemoglobin 9.4L, Hematocrit 29.4L, Mean Corpuscular Volume 107H, Mean Corpuscular Hemoglobin 34.3H, Mean Corpuscular Hemoglobin Concent 32.0, Red Cell Distribution Width 14.1, Platelet Count 102L, Mean Platelet Volume 6.6, Neutrophils (%) (Auto) , Lymphocytes (%) ( Auto) , Monocytes (%) (Auto) , Eosinophils (%) (Auto) , Basophils (%) (Auto) , Neutrophils % (Manual) [Pending], Lymphocytes % (Manual) [Pending], Platelet Estimate [Pending], Platelet Morphology [Pending], Sodium Level 145, Potassium Level 3.9, Chloride Level 101, Carbon Dioxide Level 29, Anion Gap 15, Blood Urea Nitrogen 51H, Creatinine 2.4H, Estimat Glomerular Filtration Rate 27.8, Glucose Level 75, Lactic Acid Level 12.80H, Calcium Level 7.8L, Total Bilirubin 2.3H, Direct Bilirubin 1.4H, Aspartate Amino Transf (AST/SGOT) 47H, Alanine Aminotransferase (ALT/SGPT) 34, Alkaline Phosphatase 67, Total Protein 6.0L, Albumin 1.7L, Globulin 4.3, Albumin/Globulin Ratio 0.4L Height (Feet): 5 Height (Inches): 8.00 Weight (Pounds): 118 Objective General Appearance: WD/WN, lethargic. orally intubated Neck: supple Cardiovascular: regular rhythm Respiratory/Chest: lungs td rhonchi Abdomen: normal bowel sounds, non tender. small reducible periumbilical hernia Edema: no edema noted Arm (L), no edema noted Arm (R), no edema noted Leg (L), no edema noted Leg (R), no edema noted Pedal (L), no edema noted Pedal (R), no edema noted Generalized Henry Leavitt MD Sep 29, 2019 07:52
[2019-09-29] MEDS ORDERED: Furosemide 40mg tab ORAL SCH (09:00)
[2019-09-29] MEDS: Thiamine 100mg tab ORAL SCH (10:09)
[2019-09-29] MEDS: Hydrocortisone 100mg Inj IV SCH ×3 (10:10→20:41)
--- NOTE | 2019-09-29 10:30 | Progress Note ---
DATE: 09/28/2019 CARDIOLOGY PROGRESS NOTE SUBJECTIVE: The patient's condition has deteriorated. He developed worsening respiratory failure and has required intubation and mechanical ventilation. He is now in the intensive care unit. Blood pressure parameters have been dropping. He is hypotensive. He did not respond adequately to fluid boluses and is now on pressor support. OBJECTIVE: GENERAL: Orally intubated and poorly responsive. VITAL SIGNS: Blood pressure 80/50, heart rate 130, respiratory rate 22 to 28, and no fevers. LUNGS: Diminished breath sounds. Bilateral rales. HEART: Regular rhythm. Rapid rate. Normal S1, S2. ABDOMEN: Soft. EXTREMITIES: No edema. IMPRESSION: 1. Shock. 2. Possible sepsis. 3. Acute respiratory failure. 4. Acute on chronic respiratory acidosis. 5. Healthcare-acquired pneumonia. 6. History of substance abuse. 7. Nicotine dependence. 8. Secondary sinus tachycardia. PLAN: 1. Decrease dose of nicotine patch. 2. Continue ventilator support. 3. Antimicrobials. 4. Respiratory hygiene. 5. Volume support. 6. Remains critical and guarded. Ar Gomez M.D. DR: Mitzi JOB#: [id number] CC:
--- NOTE | 2019-09-29 11:07 | Infectious Diseases Prog Note ---
Assessment/Plan Assessment/Plan antibiotics : zosyn A 1. MRSA pneumonia 2. respiratory failure 3. enterobacter UTI s/p rx 4. cirrhosis 5. ascites s/p paracentesis no SBP 6. thrombocytopenia 7. leucocytosis likely secondary to steroids 8. renal failure P 1. d/c zosyn 2. start linezolid, cefepime 3. blood culture 4. UA and urine culture 5. sputum culture 6. will follow up clinically Subjective ROS Limited/Unobtainable: Yes Allergies: Coded Allergies: PENICILLINS (Verified Allergy, Intermediate, Rash, 09/01/19) Patient stated at this time Objective Vital Signs Last 24 Hour Vital Signs Date Time Temp Pulse Resp B/P (MAP) Pulse Ox O2 Delivery O2 Flow Rate FiO2 09/29/19 10:30 125 33 83/47 (59) 91 09/29/19 10:00 128 35 87/45 (59) 91 09/29/19 09:40 109 19 80 09/29/19 09:30 123 31 81/44 (56) 91 09/29/19 09:04 80/48 09/29/19 09:00 118 32 69/41 (50) 84 09/29/19 08:30 121 32 58/37 (44) 87 09/29/19 08:00 Mechanical Ventilator 09/29/19 08:00 70 09/29/19 08:00 98.5 127 31 85/46 (59) 92 09/29/19 07:00 126 31 80/48 (59) 93 09/29/19 07:00 126 30 80 09/29/19 06:00 125 28 96/40 (58) 93 09/29/19 05:45 124 28 99/44 (62) 94 09/29/19 05:30 122 29 94/40 (58) 93 09/29/19 05:15 121 25 99/45 (63) 94 09/29/19 05:00 121 29 90/44 (59) 94 09/29/19 04:54 121 28 70 09/29/19 04:45 119 25 90/46 (61) 94 09/29/19 04:30 98.1 122 31 88/40 (56) 93 09/29/19 04:15 122 30 90/41 (57) 93 09/29/19 04:00 122 27 97/40 (59) 94 09/29/19 04:00 Mechanical Ventilator 09/29/19 04:00 124 09/29/19 04:00 88/40 09/29/19 04:00 70 09/29/19 03:52 84/39 09/29/19 03:51 84/39 09/29/19 03:45 123 33 84/39 (54) 93 09/29/19 03:30 117 26 88/43 (58) 95 09/29/19 03:29 109 19 80 09/29/19 03:24 173 27 83/60 (68) 93 09/29/19 03:15 120 27 90/42 (58) 95 09/29/19 03:00 122 30 97/44 (61) 96 09/29/19 03:00 97/44 09/29/19 02:45 123 31 91/44 (60) 95 09/29/19 02:30 124 33 96/43 (60) 95 09/29/19 02:15 123 25 86/45 (59) 96 09/29/19 02:00 111 19 79/34 (49) 97 09/29/19 01:00 124 33 90/45 (60) 98 09/29/19 01:00 91/44 09/29/19 01:00 91/38 09/29/19 00:45 120 24 91/38 (55) 100 09/29/19 00:42 112 19 80 09/29/19 00:30 112 17 88/40 (56) 100 09/29/19 00:15 112 16 84/37 (53) 100 09/29/19 00:00 Mechanical Ventilator 09/29/19 00:00 118 09/29/19 00:00 91/41 09/29/19 00:00 98.2 112 18 91/41 (58) 100 09/29/19 00:00 80 09/28/19 23:45 119 29 102/45 (64) 93 09/28/19 23:30 115 17 75/40 (52) 100 09/28/19 23:19 64/35 09/28/19 23:15 114 16 64/35 (45) 100 09/28/19 23:10 118 29 75 09/28/19 23:00 64/35 09/28/19 23:00 114 21 77/39 (52) 100 09/28/19 22:45 118 21 80/40 (53) 100 09/28/19 22:41 77/39 09/28/19 22:30 99.1 120 24 83/37 (52) 100 09/28/19 22:15 124 19 90/38 (55) 98 09/28/19 22:00 133 28 77/41 (53) 99 09/28/19 22:00 78/37 09/28/19 21:45 136 29 78/42 (54) 99 09/28/19 21:30 99.7 135 24 71/41 (51) 98 09/28/19 21:21 124 30 75 09/28/19 21:06 70/34 09/28/19 21:00 70/34 09/28/19 20:35 99.9 09/28/19 20:15 131 25 94/41 (58) 93 09/28/19 20:00 100 09/28/19 20:00 139 25 81/32 (48) 98 09/28/19 20:00 66/29 09/28/19 20:00 Mechanical Ventilator 09/28/19 20:00 140 09/28/19 19:45 136 27 91/27 (48) 99 09/28/19 19:34 133 23 86/33 (50) 99 09/28/19 19:33 101.3 123 24 67/27 (40) 99 09/28/19 19:30 125 21 64/22 (36) 99 09/28/19 19:17 128 28 75 09/28/19 19:00 138 32 93/39 (57) 95 09/28/19 19:00 79/39 09/28/19 18:53 82/39 09/28/19 18:00 140 29 72/30 (44) 94 09/28/19 17:00 120 18 91/36 (54) 99 09/28/19 16:42 116 16 75 09/28/19 16:30 98.6 122 17 72/39 (50) 100 09/28/19 16:00 128 19 82/41 (55) 96 09/28/19 16:00 Mechanical Ventilator 09/28/19 16:00 21 Mechanical Ventilator 100 09/28/19 15:55 134 16 97 Mechanical Ventilator 100 09/28/19 15:34 132 09/28/19 15:30 128 19 74/45 (55) 96 09/28/19 15:29 134 22 100 09/28/19 15:00 21 Mechanical Ventilator 100 09/28/19 15:00 140 32 92/50 (64) 93 09/28/19 14:45 140 29 92/50 (64) 92 09/28/19 14:30 134 21 96/51 (66) 89 09/28/19 14:15 140 27 92/50 (64) 88 09/28/19 14:08 29 Mechanical Ventilator 85 09/28/19 14:00 141 27 96/51 (66) 89 09/28/19 13:00 142 20 108/54 (72) 92 09/28/19 12:35 144 20 100 09/28/19 12:12 75 09/28/19 12:00 98.4 140 24 110/55 (73) 93 09/28/19 12:00 135 09/28/19 12:00 Mechanical Ventilator 09/28/19 12:00 100.2 135 20 106/60 (75) 95 09/28/19 11:47 135 Height (Feet): 5 Height (Inches): 8.00 Weight (Pounds): 118 HEENT: other - intubated Respiratory/Chest: lungs clear Cardiovascular: normal rate, regular rhythm, no gallop/murmur Abdomen: soft, non tender Extremities: no edema, other - left groin catheter Laboratory Tests Test 09/28/19 13:10 09/28/19 17:40 09/28/19 20:30 09/29/19 04:00 Arterial Blood pH 7.424 (7.350-7.450) Arterial Blood Partial Pressure CO2 73.9 mmHg (35.0-45.0) *H Arterial Blood Partial Pressure O2 66.5 mmHg (75.0-100.0) L Arterial Blood HCO3 47.3 mmol/L (22.0-26.0) *H Arterial Blood Oxygen Saturation 92.9 % (95-100) L Arterial Blood Base Excess 19.5 (-2-2) *H Giovanny Test Positive White Blood Count 18.7 K/UL (4.8-10.8) #H 18.6 K/UL (4.8-10.8) H Red Blood Count 2.87 M/UL (4.70-6.10) L 2.74 M/UL (4.70-6.10) L Hemoglobin 10.1 G/DL (14.2-18.0) L 9.4 G/DL (14.2-18.0) L Hematocrit 29.1 % (42.0-52.0) L 29.4 % (42.0-52.0) L Mean Corpuscular Volume 102 FL (80-99) H 107 FL (80-99) H Mean Corpuscular Hemoglobin 35.3 PG (27.0-31.0) H 34.3 PG (27.0-31.0) H Mean Corpuscular Hemoglobin Concent 34.8 G/DL (32.0-36.0) 32.0 G/DL (32.0-36.0) Red Cell Distribution Width 12.1 % (11.6-14.8) 14.1 % (11.6-14.8) Platelet Count 125 K/UL (150-450) L 102 K/UL (150-450) L Mean Platelet Volume 6.3 FL (6.5-10.1) L 6.6 FL (6.5-10.1) Neutrophils (%) (Auto) % (45.0-75.0) % (45.0-75.0) Lymphocytes (%) (Auto) % (20.0-45.0) % (20.0-45.0) Monocytes (%) (Auto) % (1.0-10.0) % (1.0-10.0) Eosinophils (%) (Auto) % (0.0-3.0) % (0.0-3.0) Basophils (%) (Auto) % (0.0-2.0) % (0.0-2.0) Differential Total Cells Counted 100 100 Neutrophils % (Manual) 65 % (45-75) 77 % (45-75) H Lymphocytes % (Manual) 6 % (20-45) L 4 % (20-45) L Monocytes % (Manual) 14 % (1-10) H 2 % (1-10) Eosinophils % (Manual) 0 % (0-3) 0 % (0-3) Basophils % (Manual) 0 % (0-2) 0 % (0-2) Metamyelocytes % 2 % (0-0) H 4 % (0-0) H Band Neutrophils 13 % (0-8) H 10 % (0-8) H Platelet Estimate Decreased L Decreased L Platelet Morphology Normal Normal Polychromasia 1+ Macrocytosis 2+ Sodium Level 147 MMOL/L (136-145) H 145 MMOL/L (136-145) Potassium Level 3.8 MMOL/L (3.5-5.1) 3.9 MMOL/L (3.5-5.1) Chloride Level 103 MMOL/L (98-107) 101 MMOL/L (98-107) Carbon Dioxide Level 40 MMOL/L (21-32) H 29 MMOL/L (21-32) Anion Gap 3 mmol/L (5-15) L 15 mmol/L (5-15) Blood Urea Nitrogen 42 mg/dL (7-18) H 51 mg/dL (7-18) H Creatinine 1.6 MG/DL (0.55-1.30) #H 2.4 MG/DL (0.55-1.30) H Estimat Glomerular Filtration Rate 44.3 mL/min (>60) 27.8 mL/min (>60) Glucose Level 92 MG/DL (74-106) 75 MG/DL (74-106) Calcium Level 8.3 MG/DL (8.5-10.1) L 7.8 MG/DL (8.5-10.1) L Total Bilirubin 1.9 MG/DL (0.2-1.0) H 2.3 MG/DL (0.2-1.0) H Direct Bilirubin 1.2 MG/DL (0.0-0.3) H 1.4 MG/DL (0.0-0.3) H Aspartate Amino Transf (AST/SGOT) 44 U/L (15-37) H 47 U/L (15-37) H Alanine Aminotransferase (ALT/SGPT) 38 U/L (12-78) 34 U/L (12-78) Alkaline Phosphatase 91 U/L (46-116) 67 U/L (46-116) Total Protein 6.4 G/DL (6.4-8.2) 6.0 G/DL (6.4-8.2) L Albumin 1.9 G/DL (3.4-5.0) L 1.7 G/DL (3.4-5.0) L Globulin 4.5 g/dL 4.3 g/dL Albumin/Globulin Ratio 0.4 (1.0-2.7) L 0.4 (1.0-2.7) L Lactic Acid Level 9.00 mmol/L (0.4-2.0) H 12.80 mmol/L (0.4-2.0) H Myelocytes % 3 % (0-0) H Toxic Granulation Test 09/29/19 07:50 09/29/19 09:34 Lactic Acid Level 10.60 mmol/L (0.66-2.22) H Arterial Blood pH 7.367 (7.350-7.450) Arterial Blood Partial Pressure CO2 47.6 mmHg (35.0-45.0) H Arterial Blood Partial Pressure O2 61.9 mmHg (75.0-100.0) L Arterial Blood HCO3 26.7 mmol/L (22.0-26.0) H Arterial Blood Oxygen Saturation 92.2 % (95-100) L Arterial Blood Base Excess 1.0 (-2-2) Giovanny Test Positive Current Medications Medications (Trade) Dose Ordered Sig/Akash Route PRN Reason Start Time Stop Time Status Last Admin Dose Admin Acetaminophen (Tylenol) 650 mg Q6H PRN NG FEVER 09/28/19 15:45 10/28/19 15:44 09/28/19 19:47 Chlorhexidine Gluconate (Tammy-Hex 2%) 1 applic DAILY@2000 TOPIC 09/28/19 20:00 10/28/19 19:59 09/28/19 19:47 Diphenhydramine HCl (Benadryl) 25 mg Q6H PRN ORAL Itching 09/28/19 13:25 10/28/19 13:24 09/29/19 10:09 Fentanyl Citrate 1000 mcg/Sodium Chloride 100 ml @ 0 mls/hr Q24H IV 09/29/19 12:57 10/05/19 12:56 09/28/19 14:08 Hydrocortisone (Solu-CORTEF) 100 mg Q6H IV 09/29/19 08:30 10/29/19 08:29 09/29/19 10:10 Lorazepam (Ativan 2mg/ml 1ml) 1 mg Q4H PRN IV For Anxiety 09/28/19 13:25 10/05/19 13:24 Multivitamins (Multivitamins) 1 tab DAILY ORAL 09/29/19 09:00 10/22/19 08:59 09/29/19 10:09 Nicotine (Nicoderm) 1 patch Q24H TDERMAL 09/29/19 01:00 10/29/19 00:59 09/29/19 00:57 Norepinephrine Bitartrate 8 mg/ Dextrose 558 ml @ 0 mls/hr Q24H IV 09/28/19 23:00 10/28/19 22:59 09/29/19 09:04 Pantoprazole (Protonix) 40 mg ACBREAKFAST ORAL 09/29/19 06:30 10/22/19 08:59 09/29/19 05:36 Piperacillin Sod/ Tazobactam Sod 3.375 gm/Sodium Chloride 110 ml @ 27.5 mls/hr EVERY 8 HOURS IVPB 09/28/19 16:00 10/03/19 15:59 09/29/19 05:36 Thiamine HCl (Vitamin B1) 100 mg DAILY ORAL 09/29/19 09:00 10/22/19 08:59 09/29/19 10:09 Morena Erazo MD Sep 29, 2019 11:07
--- NOTE | 2019-09-29 11:25 | NUR ---
DISCHARGE SWALLOW AND SPEECH THERAPY SUMMARY: PATIENT SEEN FOR DYSPHAGIA, SEE SWALLOW EVALUATION REPORT. PATIENT TRANSFERRED TO ICU AND IS INTUBATED. PLAN D/C FROM [facility] AT THIS TIME. PLEASE RECONSULT WHEN INDICATED. CONTINUE WITH ORAL CARE/SUCTION AND NONORAL FEEDINGS INDICATED
--- NOTE | 2019-09-29 12:30 | NUR ---
NURSE NOTES: Late entry: PT remains on Levophed 30mcg/min; BP 84/46 remains low, will continue to monitor PT.
--- NOTE | 2019-09-29 12:36 | Pulmonolgy Critical Care Note ---
Critical Care - Asmt/Plan Assessment/Plan: Pulmonary CCM Progress Note Assessment/Plan Impression - MRSA Pneumonia - VDRF - Persistent leucocytosis - previously on steroids - Hypoxic respiratory Failure - CHFpEF - Atrial Fibrillation - Cirrhosis, h/o ETOH Use, ascites s/p Paracentesis - Homeless - Enterobacter UTI s/p rx - Thrombocytopenia - Anasarca PLAN continue current ACVC settings Adjust FIO2 lasix bid keep negative and monitor steroid off prognosis remains poor impression, plan, and exam edited and reviewed in detail care discussed with RN Subjective Allergies: Coded Allergies: PENICILLINS (Verified Allergy, Intermediate, Rash, 09/01/19) Patient stated at this time Subjective care noted saturations improved with ACVC Objective Vital Signs Noted Objective WDWN, OGT, ETT NAD reduced breath sounds bilaterally without rhonchi or wheeze [id number] without MRG NABS nontender no HSM some distention no CC some edema sedated Critical Care - Objective Last 24 Hour Vital Signs Date Time Temp Pulse Resp B/P (MAP) Pulse Ox O2 Delivery O2 Flow Rate FiO2 09/29/19 12:00 65 09/29/19 12:00 Mechanical Ventilator 09/29/19 12:00 98.6 125 31 81/49 (60) 94 09/29/19 12:00 123 09/29/19 11:30 119 27 86/47 (60) 94 09/29/19 11:20 112 19 80 09/29/19 11:00 124 32 82/46 (58) 90 09/29/19 11:00 86/52 09/29/19 10:30 125 33 83/47 (59) 91 09/29/19 10:00 82/48 09/29/19 10:00 128 35 87/45 (59) 91 09/29/19 09:40 109 19 80 09/29/19 09:30 123 31 81/44 (56) 91 09/29/19 09:04 80/48 09/29/19 09:00 73/42 09/29/19 09:00 118 32 69/41 (50) 84 09/29/19 08:30 121 32 58/37 (44) 87 09/29/19 08:00 125 09/29/19 08:00 Mechanical Ventilator 09/29/19 08:00 76/42 09/29/19 08:00 70 09/29/19 08:00 98.5 127 31 85/46 (59) 92 09/29/19 07:00 126 31 80/48 (59) 93 09/29/19 07:00 126 30 80 09/29/19 06:00 125 28 96/40 (58) 93 09/29/19 05:45 124 28 99/44 (62) 94 09/29/19 05:30 122 29 94/40 (58) 93 09/29/19 05:15 121 25 99/45 (63) 94 09/29/19 05:00 121 29 90/44 (59) 94 09/29/19 04:54 121 28 70 09/29/19 04:45 119 25 90/46 (61) 94 09/29/19 04:30 98.1 122 31 88/40 (56) 93 09/29/19 04:15 122 30 90/41 (57) 93 09/29/19 04:00 122 27 97/40 (59) 94 09/29/19 04:00 Mechanical Ventilator 09/29/19 04:00 124 09/29/19 04:00 88/40 09/29/19 04:00 70 09/29/19 03:52 84/39 09/29/19 03:51 84/39 09/29/19 03:45 123 33 84/39 (54) 93 09/29/19 03:30 117 26 88/43 (58) 95 09/29/19 03:29 109 19 80 09/29/19 03:24 173 27 83/60 (68) 93 09/29/19 03:15 120 27 90/42 (58) 95 09/29/19 03:00 122 30 97/44 (61) 96 09/29/19 03:00 97/44 09/29/19 02:45 123 31 91/44 (60) 95 09/29/19 02:30 124 33 96/43 (60) 95 09/29/19 02:15 123 25 86/45 (59) 96 09/29/19 02:00 111 19 79/34 (49) 97 09/29/19 01:00 124 33 90/45 (60) 98 09/29/19 01:00 91/44 09/29/19 01:00 91/38 09/29/19 00:45 120 24 91/38 (55) 100 09/29/19 00:42 112 19 80 09/29/19 00:30 112 17 88/40 (56) 100 09/29/19 00:15 112 16 84/37 (53) 100 09/29/19 00:00 Mechanical Ventilator 09/29/19 00:00 118 09/29/19 00:00 91/41 09/29/19 00:00 98.2 112 18 91/41 (58) 100 09/29/19 00:00 80 09/28/19 23:45 119 29 102/45 (64) 93 09/28/19 23:30 115 17 75/40 (52) 100 09/28/19 23:19 64/35 09/28/19 23:15 114 16 64/35 (45) 100 09/28/19 23:10 118 29 75 09/28/19 23:00 64/35 09/28/19 23:00 114 21 77/39 (52) 100 09/28/19 22:45 118 21 80/40 (53) 100 09/28/19 22:41 77/39 09/28/19 22:30 99.1 120 24 83/37 (52) 100 09/28/19 22:15 124 19 90/38 (55) 98 09/28/19 22:00 133 28 77/41 (53) 99 09/28/19 22:00 78/37 09/28/19 21:45 136 29 78/42 (54) 99 09/28/19 21:30 99.7 135 24 71/41 (51) 98 09/28/19 21:21 124 30 75 09/28/19 21:06 70/34 09/28/19 21:00 70/34 09/28/19 20:35 99.9 09/28/19 20:15 131 25 94/41 (58) 93 09/28/19 20:00 100 09/28/19 20:00 139 25 81/32 (48) 98 09/28/19 20:00 66/29 09/28/19 20:00 Mechanical Ventilator 09/28/19 20:00 140 09/28/19 19:45 136 27 91/27 (48) 99 09/28/19 19:34 133 23 86/33 (50) 99 09/28/19 19:33 101.3 123 24 67/27 (40) 99 09/28/19 19:30 125 21 64/22 (36) 99 09/28/19 19:17 128 28 75 09/28/19 19:00 138 32 93/39 (57) 95 09/28/19 19:00 79/39 09/28/19 18:53 82/39 09/28/19 18:00 140 29 72/30 (44) 94 09/28/19 17:00 120 18 91/36 (54) 99 09/28/19 16:42 116 16 75 09/28/19 16:30 98.6 122 17 72/39 (50) 100 09/28/19 16:00 128 19 82/41 (55) 96 09/28/19 16:00 Mechanical Ventilator 09/28/19 16:00 21 Mechanical Ventilator 100 09/28/19 15:55 134 16 97 Mechanical Ventilator 100 09/28/19 15:34 132 09/28/19 15:30 128 19 74/45 (55) 96 09/28/19 15:29 134 22 100 09/28/19 15:00 21 Mechanical Ventilator 100 09/28/19 15:00 140 32 92/50 (64) 93 09/28/19 14:45 140 29 92/50 (64) 92 09/28/19 14:30 134 21 96/51 (66) 89 09/28/19 14:15 140 27 92/50 (64) 88 09/28/19 14:08 29 Mechanical Ventilator 85 09/28/19 14:00 141 27 96/51 (66) 89 09/28/19 13:00 142 20 108/54 (72) 92 09/28/19 12:35 144 20 100 Critical Care - Subjective ROS Limited/Unobtainable: No FI02: 65 Vent Support Breath Rate: 14 Vent Support Mode: AC Vent Tidal Volume: 480 Sputum Amount: Small PEEP: 5.0 PIP: 25 I&O: Intake and Output 09/28/19 09/29/19 19:00 07:00 Intake Total 1267.5 ml 1217.24 ml Output Total 250 ml Balance 1017.5 ml 1217.24 ml Intake Oral 120 ml IV Total 1147.5 ml 1217.24 ml Output Urine Total 250 ml # Voids 1 # Bowel Movements 2 ET-Tube: 7.5 ET Position: 24 Ar Cook MD 15, 2020 12:36
[2019-09-29] MEDS: Cefepime HCl 2 GM in D5W 55 ML IVPB SCH (13:35)
--- NOTE | 2019-09-29 14:34 | NUR ---
*-* INSURANCE *-* ALL AVAILABLE CLINICALS AND REVIEWS HAVE BEEN FAXED TO: [facility]: DEEPAK P- [phone] F- [phone]...........REVIEW/CLINICAL
--- NOTE | 2019-09-29 15:04 | NUR ---
RD ASSESSMENT & RECOMMENDATIONS SEE CARE ACTIVITY FOR COMPLETE ASSESSMENT DAILY ESTIMATED NEEDS: Needs based on Liver, Pulmonary, Critical care 55kg 22-30 kcals/kg 7891-1701 total kcals 1.2-2 g protein/kg 79-110 g total protein 25-30 mL/kg 1859-2155 total fluid mLs NUTRITION DIAGNOSIS: * Swallowing difficulty R/T dysphagia, respiratory status as evidenced by pt on [facility] soft finely chopped texture- was upgraded to Soft easy chew, was mostly on BIPAP, on non-rebreather during meals-> now orally intubated in ICU, on max pressor support, NPO * Decreased sodium and fat needs r/t clinical status, ascites, as evidenced by s/p paracentesis, elev LFT's, elev T bili (INACTIVE) CURRENT DIET:NPO ENTERAL NUTRITION RECOMMENDATIONS: WHEN HD STABLE: Vital AF 1.2 @ 50ml/hr x 24 hrs to provide 1200ml, 1440kcal, 90g prot, 973ml free water * WHEN PT HEMODYNAMICALLY STABLE: -> initiate Vital AF 1.2 @ 10ml/hr x 6 hrs -> advance 10ml q 4-6 hrs as tolerated -> HOB over 30 degrees/ water flush per MD WITHOUT HD STABILITY: consider trophic feeding of Vital AF 1.2 @ 5-10ml/hr ADDITIONAL RECOMMENDATIONS: 1) Obtain daily standing weight for accuracy or calibrated bedscale wt current bedscale wt 121 bs vs initial bedscale wt 158lbs 2) Monitor HD stability: on NE @ 30mcg 3) Monitor renal fxn and liver fxn: creat and T bili trend up . . .
--- NOTE | 2019-09-29 15:23 | NUR ---
NURSE NOTES: PT remains on Levophed 30mcg/min; VS stable, BP improving; PT remains on bilateral wrist restraints. Will continue to monitor PT.
--- NOTE | 2019-09-29 19:08 | NUR ---
HAND-OFF: Report and PT given to REINALDO Aiken.
--- NOTE | 2019-09-29 19:25 | NUR ---
NURSE NOTES: SBAR from Dave NAJERA. Patient is orally intubated 7.5/24cm at lower lip. AC 14, 480tv, 65% FiO2 and peep of 5. Patient is on Levophed at 30mcg/min via left femoral TLC. 20G R FA noted saline lock. Condom catheter noted. Contact isolation noted. bilateral soft wrist restraints noted, pulse noted. Skin is intact. P 89/45, HR 122 ST. Safety measures are in place. bed locked and in lowest position. Will continue to monitor.
--- NOTE | 2019-09-29 20:00 | NUR ---
NURSE NOTES: Repositioned and oral hygiene given. Deep and oral suction provided. Slowly titrating pressors down. Levophed at 29mcg/min Afebrile, 98.8F
[2019-09-29] MEDS: Dyna-Hex 2% Top Sol 2oz TOPIC SCH (20:41)
--- NOTE | 2019-09-29 21:02 | NUR ---
RESPIRATORY NOTE: RECEIVED THE PT ON VENT SETTINGS 14/480/ 80%/ +5. 7.5 ETT 24 CM AT THE LIP AND SECURED WITH ANCHORFAST. VENT PLUGGED INTO RED OUTLET AND BMV AT BEDSIDE. VENT ALARMS ARE ON AND AUDIBLE. PT B/S CLR/ DIMINISHED. SX THROUGH ETT BUT NON PRODUCTIVE.PT TACHYCARDIC AND SAT 97% ON 80% FIO2. WILL CONTINUE TO MONITOR THROUGHOUT THE NIGHT.
--- NOTE | 2019-09-29 22:00 | NUR ---
NURSE NOTES: Repositioned and oral suctioning provided Levophed down to 27mcg/min. Slowly titrating down pressor. UA collected and sent to Lab. Spo2 at 94% at 80% FiO2.
[2019-09-29 23:04] LABS: APPEARANCE,URINE CLOUDY; BILIRUBIN, URINE 1+ (NEGATIVE); COLOR,URINE BROWN; GLUCOSE, URINE (UA) NEGATIVE (NEGATIVE); KETONES,URINE 1+ (NEGATIVE); LEUKOCYTE ESTERASE ,URINE NEGATIVE (NEGATIVE); NITRITE,URINE NEGATIVE (NEGATIVE); PH,URINE 5 (4.5-8.0); PROTEIN,URINE 2+ (NEGATIVE); UROBILINOGEN,URINE 1 MG/DL (0.0-1.0)
[2019-09-30] VITALS (53 sets, daily range): BP systolic 70–101; BP diastolic 36–67
--- NOTE | 2019-09-30 | NUR ---
NURSE NOTES: Patient repositioned, oral care given pressor slowly being titrated down. Map staying above 60. HR [address] NAd at this time.
--- NOTE | 2019-09-30 01:00 | Progress Note ---
DATE: 09/29/2019 CARDIOLOGY PROGRESS NOTE SUBJECTIVE: The patient remains on ventilator support. Blood pressure parameters tenuous and pressors are needed. OBJECTIVE: VITAL SIGNS: Monitored sinus tachycardia with atrial arrhythmias. HEENT: Orally intubated. LUNGS: Bilateral rales. CARDIAC: Regular rhythm, rapid rate. Normal S1, S2. ABDOMEN: Soft. EXTREMITIES: Trace dependent edema. LABORATORY DATA: White count 18, hemoglobin 9. Lactic acid 8. ABG - 7.36, 47, 62. IMPRESSION: 1. Respiratory failure. 2. Lactic acidosis. 3. Sepsis with shock. 4. Acute myocardial ischemia. 5. Hypoxia. 6. Remains critical and guarded. PLAN: 1. Antimicrobials. 2. Ventilator support. 3. Taper pressors as able. 4. Hold diuresis. 5. DVT prophylaxis. 6. Consideration for bronchoscopy when hemodynamically more stable. 7. May ultimately require trach. Ar Gomez M.D. DR: JACQUIE JOB#: [id number] CC:
[2019-09-30] MEDS: Hydrocortisone 100mg Inj IV SCH ×4 (01:18→20:09)
--- NOTE | 2019-09-30 02:00 | NUR ---
NURSE NOTES: Patient repositioned and given oral care. HR [address] ST Pressors slowly decreasing FiO2 80% Patient still not awake, non responsive
--- NOTE | 2019-09-30 04:00 | NUR ---
NURSE NOTES: Repositioned Sponge bath given pressors slowly being titrated down HR remains Sinus tach. 116 FiO2 80% SpO2 93% Deep suctioned/oral suctioned Central line dressing changed
[2019-09-30 05:40] LABS: HEMATOCRIT 24.7 % (42.0-52.0); HEMOGLOBIN 8.2 G/DL (14.2-18.0); MEAN CORPUSCULAR VOLUME 105 FL (80-99); PLATELET COUNT 38 K/UL (150-450); RED BLOOD COUNT 2.37 M/UL (4.70-6.10); RED CELL DISTRIBUTION WIDTH 13.6 % (11.6-14.8)
--- NOTE | 2019-09-30 05:54 | NUR ---
NURSE NOTES: Patients HR is 179 SVT. Highest HR was 200 SVT. 12 Lead EKG performed and shows HR [address] Gomez and left message regarding this issue.
[2019-09-30 06:00] LABS: WHITE BLOOD COUNT 42.7 K/UL (4.8-10.8)
--- NOTE | 2019-09-30 06:02 | NUR ---
NURSE NOTES: Paged MD Gomez at this time. patient HR 178. 12 lead confirmed SVT Awaiting call back
--- NOTE | 2019-09-30 06:10 | NUR ---
NURSE NOTES: Dr. Gomez called back and I informed him of patients HR 178 SVT and blood pressure. New verbal orders for bolus 500ml Ns and keep tapering Pressors down.
[2019-09-30 06:15] LABS: ALANINE AMINOTRANSFERASE 36 U/L (12-78); ALBUMIN 1.6 G/DL (3.4-5.0); ALBUMIN/GLOBULIN RATIO 0.4 (1.0-2.7); ALKALINE PHOSPHATASE 66 U/L (46-116); ANION GAP 10 mmol/L (5-15); ASPARTATE AMINO TRANSFERASE 59 U/L (15-37); BLOOD UREA NITROGEN 60 mg/dL (7-18); CALCIUM 6.8 MG/DL (8.5-10.1); CARBON DIOXIDE 29 MMOL/L (21-32); CHLORIDE 93 MMOL/L (98-107); CREATININE 2.6 MG/DL (0.55-1.30); POTASSIUM 4.1 MMOL/L (3.5-5.1); SODIUM 132 MMOL/L (136-145)
[2019-09-30 06:17] LABS: BILIRUBIN,DIRECT 2.4 MG/DL (0.0-0.3)
--- NOTE | 2019-09-30 06:19 | NUR ---
NURSE NOTES: 500ml NS bolus hung. Slowly tapering pressors. Patient still in SVT with HR of 181 Levophed at 9mcg/min at this time. BP is 90/46 Patient non-responsive
--- NOTE | 2019-09-30 06:54 | NUR ---
NURSE NOTES: Dr. Leavitt at bedside, updated him on patients HR 179 SVT. No new orders at this time.
--- NOTE | 2019-09-30 07:05 | General Progress Note ---
Assessment/Plan Problem List: (1) AMS (altered mental status) ICD Codes: R41.82 - Altered mental status, unspecified SNOMED: 795248521 (2) Sepsis ICD Codes: A41.9 - Sepsis, unspecified organism SNOMED: 20370070 (3) Shock ICD Codes: R57.9 - Shock, unspecified SNOMED: 73311993 (4) Cirrhosis ICD Codes: K74.60 - Unspecified cirrhosis of liver SNOMED: 30805662 (5) Hypoxia ICD Codes: R09.02 - Hypoxemia SNOMED: 844957051 (6) Respiratory failure, acute ICD Codes: J96.00 - Acute respiratory failure, unspecified whether with hypoxia or hypercapnia SNOMED: 19471948 Qualifiers: Qualified Codes: J96.01 - Acute respiratory failure with hypoxia Status: stable Assessment/Plan: vent support pressors ivf stress dose steroids iv abx consider adenosine critical and guarded poor prognosis Subjective ROS Limited/Unobtainable: Yes Constitutional: Reports: malaise, weakness HEENT: Reports: no symptoms Cardiovascular: Reports: no symptoms Respiratory: Reports: no symptoms Gastrointestinal/Abdominal: Reports: no symptoms Genitourinary: Reports: no symptoms Neurologic/Psychiatric: Reports: no symptoms Endocrine: Reports: no symptoms Hematologic/Lymphatic: Reports: no symptoms Allergies: Coded Allergies: PENICILLINS (Verified Allergy, Intermediate, Rash, 09/01/19) Patient stated at this time All Systems: reviewed and negative except above Subjective intubated for resp distress. hypotensive. worsening renal insuff poor uop svt 180s. Objective Last 24 Hour Vital Signs Date Time Temp Pulse Resp B/P (MAP) Pulse Ox O2 Delivery O2 Flow Rate FiO2 09/30/19 07:00 180 28 85/46 (59) 97 09/30/19 06:45 181 29 83/46 (58) 97 09/30/19 06:38 181 29 82/50 (61) 97 09/30/19 06:30 181 30 86/46 (59) 96 09/30/19 06:27 181 09/30/19 06:18 91/52 09/30/19 06:15 181 30 91/49 (63) 96 09/30/19 06:07 177 09/30/19 06:00 178 09/30/19 06:00 85/42 09/30/19 06:00 177 30 80/48 (59) 96 09/30/19 05:52 179 30 84/47 (59) 97 09/30/19 05:49 179 29 82/45 (57) 96 09/30/19 05:45 182 31 87/52 (64) 90 09/30/19 05:45 180 09/30/19 05:45 100 09/30/19 05:30 116 30 92/49 (63) 93 09/30/19 05:15 115 29 91/46 (61) 94 09/30/19 05:00 92/50 09/30/19 05:00 110 27 92/47 (62) 94 09/30/19 04:56 112 30 80 09/30/19 04:30 111 25 90/36 (54) 92 09/30/19 04:00 80 09/30/19 04:00 98.0 113 29 86/44 (58) 91 09/30/19 04:00 112 09/30/19 04:00 83/44 09/30/19 04:00 Mechanical Ventilator 09/30/19 03:02 115 31 80 09/30/19 03:00 116 27 94/51 (65) 96 09/30/19 03:00 113 27 100/48 (65) 91 09/30/19 03:00 100/49 09/30/19 02:30 118 31 101/49 (66) 97 09/30/19 02:00 118 29 100/49 (66) 97 09/30/19 02:00 95/48 09/30/19 01:30 100/48 09/30/19 01:30 118 30 95/46 (62) 97 09/30/19 01:04 115 32 80 09/30/19 01:00 119 31 93/46 (62) 93 09/30/19 01:00 95/55 09/30/19 00:00 120 09/30/19 00:00 99.4 116 30 93/50 (64) 94 09/30/19 00:00 98/50 09/30/19 00:00 Mechanical Ventilator 09/30/19 00:00 75 09/29/19 23:30 115 31 94/47 (63) 94 09/29/19 23:28 95/49 09/29/19 23:00 95/49 1/15/20 23:00 117 30 95/47 (63) 95 09/29/19 22:44 120 32 80 09/29/19 22:00 118 31 94/46 (62) 94 09/29/19 22:00 94/48 09/29/19 21:30 119 31 94/49 (64) 95 09/29/19 21:01 120 33 80 09/29/19 21:00 98.9 118 32 95/51 (66) 94 09/29/19 21:00 97/48 09/29/19 20:00 65 09/29/19 20:00 119 31 94/48 (63) 95 09/29/19 20:00 118 09/29/19 20:00 98/49 09/29/19 20:00 Mechanical Ventilator 09/29/19 19:30 117 31 97/47 (64) 94 09/29/19 19:01 116 25 80 09/29/19 19:00 116 29 93/47 (62) 93 09/29/19 19:00 93/47 09/29/19 18:46 99/49 09/29/19 18:30 120 32 99/49 (66) 95 09/29/19 18:00 95/49 09/29/19 18:00 119 31 95/48 (64) 95 09/29/19 17:30 119 32 98/48 (65) 94 09/29/19 17:06 118 28 80 09/29/19 17:00 120 32 98/49 (65) 94 09/29/19 17:00 99/49 09/29/19 16:30 126 35 110/53 (72) 95 09/29/19 16:00 123 35 108/51 (70) 94 09/29/19 16:00 122 09/29/19 16:00 Mechanical Ventilator 09/29/19 16:00 65 09/29/19 16:00 98.6 122 32 101/51 (68) 95 09/29/19 16:00 99/48 09/29/19 16:00 122 32 99/49 (66) 94 09/29/19 15:30 122 33 101/49 (66) 95 09/29/19 15:30 122 32 104/50 (68) 95 09/29/19 15:07 120 30 80 09/29/19 15:00 99/50 09/29/19 15:00 128 35 108/51 (70) 95 09/29/19 14:30 126 34 100/52 (68) 96 09/29/19 14:00 126 34 93/48 (63) 95 09/29/19 14:00 94/50 09/29/19 13:39 87/46 09/29/19 13:30 122 31 87/46 (60) 94 09/29/19 13:04 109 19 80 09/29/19 13:00 121 31 89/49 (62) 93 09/29/19 13:00 89/49 09/29/19 12:30 120 28 90/49 (63) 94 09/29/19 12:00 65 09/29/19 12:00 Mechanical Ventilator 09/29/19 12:00 98.6 125 31 81/49 (60) 94 09/29/19 12:00 87/48 09/29/19 12:00 123 09/29/19 11:30 119 27 86/47 (60) 94 09/29/19 11:20 112 19 80 09/29/19 11:00 124 32 82/46 (58) 90 09/29/19 11:00 86/52 09/29/19 10:30 125 33 83/47 (59) 91 09/29/19 10:00 82/48 09/29/19 10:00 128 35 87/45 (59) 91 09/29/19 09:40 109 19 80 09/29/19 09:30 123 31 81/44 (56) 91 09/29/19 09:04 80/48 09/29/19 09:00 73/42 09/29/19 09:00 118 32 69/41 (50) 84 09/29/19 08:30 121 32 58/37 (44) 87 09/29/19 08:00 125 09/29/19 08:00 Mechanical Ventilator 09/29/19 08:00 76/42 09/29/19 08:00 70 09/29/19 08:00 98.5 127 31 85/46 (59) 92 Intake and Output 09/29/19 09/30/19 19:00 07:00 Intake Total 1985.73 ml 1312.75 ml Output Total 600 ml 400 ml Balance 1385.73 ml 912.75 ml IV Total 1935.73 ml 1312.75 ml Other 50 ml Output Urine Total 600 ml 400 ml # Bowel Movements 4 Laboratory Tests 09/29/19 07:50: Lactic Acid Level 10.60H 09/29/19 09:34: Arterial Blood pH 7.367, Arterial Blood Partial Pressure CO2 47.6H, Arterial Blood Partial Pressure O2 61.9L, Arterial Blood HCO3 26.7H, Arterial Blood Oxygen Saturation 92.2L, Arterial Blood Base Excess 1.0, Giovanny Test Positive 09/29/19 14:25: Lactic Acid Level 8.70H 09/29/19 17:20: Lactic Acid Level 9.50H 09/29/19 20:00: Lactic Acid Level 8.20H 09/29/19 21:30: Urine Color Brown, Urine Appearance Cloudy, Urine pH 5, Urine Specific [place] 1.010, Urine Protein 2+H, Urine Glucose (UA) Negative, Urine Ketones 1+H, Urine Blood 3+H, Urine Nitrite Negative, Urine Bilirubin 1+H, Urine Ictotest Negative , Urine Urobilinogen 1H, Urine Leukocyte Esterase Negative, Urine RBC 2-4H, Urine WBC 0-2, Urine Squamous Epithelial Cells Few, Urine Bacteria ModerateH, Urine Yeast FewH 09/29/19 23:35: Lactic Acid Level 7.10H 09/30/19 04:00: White Blood Count 42.7#*H, Red Blood Count 2.37L, Hemoglobin 8.2L, Hematocrit 24.7L, Mean Corpuscular Volume 105H, Mean Corpuscular Hemoglobin 34.5H, Mean Corpuscular Hemoglobin Concent 33.1, Red Cell Distribution Width 13.6, Platelet Count 38#L, Mean Platelet Volume 7.8, Neutrophils (%) (Auto) , Lymphocytes (%) ( Auto) , Monocytes (%) (Auto) , Eosinophils (%) (Auto) , Basophils (%) (Auto) , Neutrophils % (Manual) [Pending], Lymphocytes % (Manual) [Pending], Platelet Estimate [Pending], Platelet Morphology [Pending], Sodium Level 132#L, Potassium Level 4.1, Chloride Level 93L, Carbon Dioxide Level 29, Anion Gap 10, Blood Urea Nitrogen 60H, Creatinine 2.6H, Estimat Glomerular Filtration Rate 25.3, Glucose Level 88, Calcium Level 6.8L, Total Bilirubin 3.0H, Direct Bilirubin 2.4H, Aspartate Amino Transf (AST/SGOT) 59H, Alanine Aminotransferase (ALT/SGPT) 36, Alkaline Phosphatase 66, Total Protein 5.8L, Albumin 1.6L, Globulin 4.2, Albumin/Globulin Ratio 0.4L Height (Feet): 5 Height (Inches): 8.00 Weight (Pounds): 115 Objective General Appearance: WD/WN, lethargic. orally intubated Neck: supple Cardiovascular: regular rhythm Respiratory/Chest: lungs td rhonchi Abdomen: normal bowel sounds, non tender. small reducible periumbilical hernia Edema: no edema noted Arm (L), no edema noted Arm (R), no edema noted Leg (L), no edema noted Leg (R), no edema noted Pedal (L), no edema noted Pedal (R), no edema noted Generalized Henry Leavitt MD Sep 30, 2019 07:05
--- NOTE | 2019-09-30 07:09 | NUR ---
HAND-OFF: Report given to Dave NAJERA.
--- NOTE | 2019-09-30 07:10 | NUR ---
NURSE NOTES: Late entry: PT and report received from REINALDO Aiken; youth nutritional monitor shows SVT 170s; MD Dagmar made rounds during morning report, reported PT status/updates/current status to MD with REINALDO Aiken. PT not orientated, no response to voice/name, received on bilateral soft wrist restraints for PT safety; PT intubated ETT 7.5 @ 24 R-lip, AC 14, TV 480, 100%, peep 5; PT tachypneic; received NPO status but PT has OGT; PT has condom cath intact patent draining; PT has R-AC 20g and L-fem TLC all remains patent intact flushes well. Received PT with Levophed 7mcg/min BP 88/49 will continue titrating PT down from Levophed; will continue to monitor PT closely.
--- NOTE | 2019-09-30 07:30 | NUR ---
NURSE NOTES: monitoring coordinator shows PT converting from SVT high 170s to ST 117 @ 0730. PT again converted to SVT high 170s @ 0733 Will continue to monitor PT.
--- NOTE | 2019-09-30 08:24 | Pulmonology Progress Note ---
Assessment/Plan Assessment/Plan Impression - MRSA Pneumonia - Persistent leucocytosis - Hypoxic respiratory Failure - CHFpEF - Atrial Fibrillation - Cirrhosis, h/o ETOH Use, ascites s/p Paracentesis - Homeless - Enterobacter UTI s/p rx - Thrombocytopenia - Anasarca - tachycardia PLAN doing poorly currently on vent steroids without improvement at present will need bronchoscopy if able currently unstable remains ill in ICU prognosis remains poor impression, plan, and exam edited and reviewed in detail care discussed with RN Subjective ROS Limited/Unobtainable: Yes Allergies: Coded Allergies: PENICILLINS (Verified Allergy, Intermediate, Rash, 09/01/19) Patient stated at this time Subjective care noted on vent tachycardic now on 80% Objective Last 24 Hour Vital Signs Date Time Temp Pulse Resp B/P (MAP) Pulse Ox O2 Delivery O2 Flow Rate FiO2 09/30/19 07:25 115 27 80 09/30/19 07:00 180 28 85/46 (59) 97 09/30/19 07:00 85/46 09/30/19 06:45 181 29 83/46 (58) 97 09/30/19 06:38 181 29 82/50 (61) 97 09/30/19 06:30 181 30 86/46 (59) 96 09/30/19 06:27 181 09/30/19 06:18 91/52 09/30/19 06:15 181 30 91/49 (63) 96 09/30/19 06:07 177 09/30/19 06:00 178 09/30/19 06:00 85/42 09/30/19 06:00 177 30 80/48 (59) 96 09/30/19 05:52 179 30 84/47 (59) 97 09/30/19 05:49 179 29 82/45 (57) 96 09/30/19 05:45 182 31 87/52 (64) 90 09/30/19 05:45 180 09/30/19 05:45 100 09/30/19 05:30 116 30 92/49 (63) 93 09/30/19 05:15 115 29 91/46 (61) 94 09/30/19 05:00 92/50 09/30/19 05:00 110 27 92/47 (62) 94 09/30/19 04:56 112 30 80 09/30/19 04:30 111 25 90/36 (54) 92 09/30/19 04:00 80 09/30/19 04:00 98.0 113 29 86/44 (58) 91 09/30/19 04:00 112 09/30/19 04:00 83/44 09/30/19 04:00 Mechanical Ventilator 09/30/19 03:02 115 31 80 09/30/19 03:00 116 27 94/51 (65) 96 09/30/19 03:00 113 27 100/48 (65) 91 09/30/19 03:00 100/49 09/30/19 02:30 118 31 101/49 (66) 97 09/30/19 02:00 118 29 100/49 (66) 97 09/30/19 02:00 95/48 09/30/19 01:30 100/48 09/30/19 01:30 118 30 95/46 (62) 97 09/30/19 01:04 115 32 80 09/30/19 01:00 119 31 93/46 (62) 93 09/30/19 01:00 95/55 09/30/19 00:00 120 09/30/19 00:00 99.4 116 30 93/50 (64) 94 09/30/19 00:00 98/50 09/30/19 00:00 Mechanical Ventilator 09/30/19 00:00 75 09/29/19 23:30 115 31 94/47 (63) 94 09/29/19 23:28 95/49 09/29/19 23:00 95/49 09/29/19 23:00 117 30 95/47 (63) 95 09/29/19 22:44 120 32 80 09/29/19 22:00 118 31 94/46 (62) 94 09/29/19 22:00 94/48 09/29/19 21:30 119 31 94/49 (64) 95 09/29/19 21:01 120 33 80 09/29/19 21:00 98.9 118 32 95/51 (66) 94 09/29/19 21:00 97/48 09/29/19 20:00 65 09/29/19 20:00 119 31 94/48 (63) 95 09/29/19 20:00 118 09/29/19 20:00 98/49 09/29/19 20:00 Mechanical Ventilator 09/29/19 19:30 117 31 97/47 (64) 94 09/29/19 19:01 116 25 80 09/29/19 19:00 116 29 93/47 (62) 93 09/29/19 19:00 93/47 09/29/19 18:46 99/49 09/29/19 18:30 120 32 99/49 (66) 95 09/29/19 18:00 95/49 09/29/19 18:00 119 31 95/48 (64) 95 09/29/19 17:30 119 32 98/48 (65) 94 09/29/19 17:06 118 28 80 09/29/19 17:00 120 32 98/49 (65) 94 09/29/19 17:00 99/49 09/29/19 16:30 126 35 110/53 (72) 95 09/29/19 16:00 123 35 108/51 (70) 94 09/29/19 16:00 122 09/29/19 16:00 Mechanical Ventilator 09/29/19 16:00 65 09/29/19 16:00 98.6 122 32 101/51 (68) 95 09/29/19 16:00 99/48 09/29/19 16:00 122 32 99/49 (66) 94 09/29/19 15:30 122 33 101/49 (66) 95 09/29/19 15:30 122 32 104/50 (68) 95 09/29/19 15:07 120 30 80 09/29/19 15:00 99/50 09/29/19 15:00 128 35 108/51 (70) 95 09/29/19 14:30 126 34 100/52 (68) 96 09/29/19 14:00 126 34 93/48 (63) 95 09/29/19 14:00 94/50 09/29/19 13:39 87/46 09/29/19 13:30 122 31 87/46 (60) 94 09/29/19 13:04 109 19 80 09/29/19 13:00 121 31 89/49 (62) 93 09/29/19 13:00 89/49 09/29/19 12:30 120 28 90/49 (63) 94 09/29/19 12:00 65 09/29/19 12:00 Mechanical Ventilator 09/29/19 12:00 98.6 125 31 81/49 (60) 94 09/29/19 12:00 87/48 09/29/19 12:00 123 09/29/19 11:30 119 27 86/47 (60) 94 09/29/19 11:20 112 19 80 09/29/19 11:00 124 32 82/46 (58) 90 09/29/19 11:00 86/52 09/29/19 10:30 125 33 83/47 (59) 91 09/29/19 10:00 82/48 09/29/19 10:00 128 35 87/45 (59) 91 09/29/19 09:40 109 19 80 09/29/19 09:30 123 31 81/44 (56) 91 09/29/19 09:04 80/48 09/29/19 09:00 73/42 09/29/19 09:00 118 32 69/41 (50) 84 09/29/19 08:30 121 32 58/37 (44) 87 Intake and Output 09/29/19 09/30/19 19:00 07:00 Intake Total 1985.73 ml 1350.41 ml Output Total 600 ml 400 ml Balance 1385.73 ml 950.41 ml IV Total 1935.73 ml 1350.41 ml Other 50 ml Output Urine Total 600 ml 400 ml # Bowel Movements 4 Objective WDWN NAD coarse breath sounds bilaterally without rhonchi or wheeze [id number] tacy without MRG NABS nontender no HSM some distention no CC some edema nonfocal Microbiology Date/Time Source Procedure Growth Status 09/28/19 20:30 Blood Blood Culture - Preliminary Gram Positive Cocci Resulted 09/28/19 20:50 Sputum Induced Gram Stain - Final Resulted 09/28/19 20:50 Sputum Culture - Preliminary Staphylococcus Aureus Resulted 09/29/19 21:30 Urine,Clean Catch Urine Culture - Preliminary NO GROWTH Resulted Laboratory Tests 09/29/19 09:34: Arterial Blood pH 7.367, Arterial Blood Partial Pressure CO2 47.6H, Arterial Blood Partial Pressure O2 61.9L, Arterial Blood HCO3 26.7H, Arterial Blood Oxygen Saturation 92.2L, Arterial Blood Base Excess 1.0, Giovanny Test Positive 09/29/19 14:25: Lactic Acid Level 8.70H 09/29/19 17:20: Lactic Acid Level 9.50H 09/29/19 20:00: Lactic Acid Level 8.20H 09/29/19 21:30: Urine Color Brown, Urine Appearance Cloudy, Urine pH 5, Urine Specific [place] 1.010, Urine Protein 2+H, Urine Glucose (UA) Negative, Urine Ketones 1+H, Urine Blood 3+H, Urine Nitrite Negative, Urine Bilirubin 1+H, Urine Ictotest Negative , Urine Urobilinogen 1H, Urine Leukocyte Esterase Negative, Urine RBC 2-4H, Urine WBC 0-2, Urine Squamous Epithelial Cells Few, Urine Bacteria ModerateH, Urine Yeast FewH 09/29/19 23:35: Lactic Acid Level 7.10H 09/30/19 04:00: White Blood Count 42.7#*H, Red Blood Count 2.37L, Hemoglobin 8.2L, Hematocrit 24.7L, Mean Corpuscular Volume 105H, Mean Corpuscular Hemoglobin 34.5H, Mean Corpuscular Hemoglobin Concent 33.1, Red Cell Distribution Width 13.6, Platelet Count 38#L, Mean Platelet Volume 7.8, Neutrophils (%) (Auto) , Lymphocytes (%) ( Auto) , Monocytes (%) (Auto) , Eosinophils (%) (Auto) , Basophils (%) (Auto) , Neutrophils % (Manual) [Pending], Lymphocytes % (Manual) [Pending], Platelet Estimate [Pending], Platelet Morphology [Pending], Sodium Level 132#L, Potassium Level 4.1, Chloride Level 93L, Carbon Dioxide Level 29, Anion Gap 10, Blood Urea Nitrogen 60H, Creatinine 2.6H, Estimat Glomerular Filtration Rate 25.3, Glucose Level 88, Calcium Level 6.8L, Total Bilirubin 3.0H, Direct Bilirubin 2.4H, Aspartate Amino Transf (AST/SGOT) 59H, Alanine Aminotransferase (ALT/SGPT) 36, Alkaline Phosphatase 66, Total Protein 5.8L, Albumin 1.6L, Globulin 4.2, Albumin/Globulin Ratio 0.4L 09/30/19 07:09: Lactic Acid Level 6.00H Current Medications Medications (Trade) Dose Ordered Sig/Akash Route PRN Reason Start Time Stop Time Status Last Admin Dose Admin Acetaminophen (Tylenol) 650 mg Q6H PRN NG FEVER 09/28/19 15:45 10/28/19 15:44 09/28/19 19:47 Cefepime HCl 2 gm/ Dextrose 55 ml @ 110 mls/hr Q24H IVPB 09/29/19 15:00 10/06/19 14:59 09/29/19 13:35 Chlorhexidine Gluconate (Tammy-Hex 2%) 1 applic DAILY@2000 TOPIC 09/28/19 20:00 10/28/19 19:59 09/29/19 20:41 Diphenhydramine HCl (Benadryl) 25 mg Q6H PRN ORAL Itching 09/28/19 13:25 10/28/19 13:24 09/29/19 10:09 Fentanyl Citrate 1000 mcg/Sodium Chloride 100 ml @ 0 mls/hr Q24H IV 09/29/19 12:57 10/05/19 12:56 09/28/19 14:08 Hydrocortisone (Solu-CORTEF) 100 mg Q6H IV 09/29/19 08:30 10/29/19 08:29 09/30/19 01:18 Linezolid 300 ml @ 300 mls/hr Q12H IVPB 09/29/19 14:00 10/06/19 13:59 09/30/19 01:18 Lorazepam (Ativan 2mg/ml 1ml) 1 mg Q4H PRN IV For Anxiety 09/28/19 13:25 10/05/19 13:24 Multivitamins (Multivitamins) 1 tab DAILY ORAL 09/29/19 09:00 10/22/19 08:59 09/29/19 10:09 Nicotine (Nicoderm) 1 patch Q24H TDERMAL 09/29/19 01:00 10/29/19 00:59 09/30/19 01:18 Norepinephrine Bitartrate 8 mg/ Dextrose 558 ml @ 0 mls/hr Q24H IV 09/28/19 23:00 10/28/19 22:59 09/29/19 23:28 Pantoprazole (Protonix) 40 mg ACBREAKFAST ORAL 09/29/19 06:30 10/22/19 08:59 09/30/19 05:16 Thiamine HCl (Vitamin B1) 100 mg DAILY ORAL 09/29/19 09:00 10/22/19 08:59 09/29/19 10:09 Simon Lopez MD Sep 30, 2019 08:24
[2019-09-30] MEDS: Thiamine 100mg tab ORAL SCH (08:51)
[2019-09-30] MEDS ORDERED: Amiodarone 900 MG in D5W 500ml 482 ML IV SCH ×2 (09:45→10:30)
--- NOTE | 2019-09-30 09:54 | NUR ---
NURSE NOTES: MD Jessica made rounds, informed MD about SVT since approximately 0530 this morning, order amiodarone drip for PT. Will place orders on behalf of .
--- NOTE | 2019-09-30 10:10 | Infectious Diseases Prog Note ---
Assessment/Plan Assessment/Plan IMPRESSION: 1. MRSA pneumonia, 2. Enterobacter UTI that was treated. 3. Cirrhosis with ascites. 4. MRSA colonization. 5. Anemia. 6. Thrombocytopenia. 7. Tachycardia 8. Hypercapnic respiratory failure. 9. Leukocytosis, worsening 10 Bacteremia 11. acute renal failure RECOMMENDATIONS: Continue Cefepime & Zyvox Will f/u cultures Poor prognosis Subjective ROS Limited/Unobtainable: Yes Constitutional: Denies: fever Allergies: Coded Allergies: PENICILLINS (Verified Allergy, Intermediate, Rash, 09/01/19) Patient stated at this time Objective Vital Signs Last 24 Hour Vital Signs Date Time Temp Pulse Resp B/P (MAP) Pulse Ox O2 Delivery O2 Flow Rate FiO2 09/30/19 09:36 150 29 80 09/30/19 09:00 74/48 09/30/19 09:00 167 28 74/46 (55) 93 09/30/19 08:00 98.5 179 27 90/57 (68) 96 09/30/19 08:00 82/42 09/30/19 08:00 166 09/30/19 08:00 Mechanical Ventilator 09/30/19 07:25 115 27 80 09/30/19 07:00 180 28 85/46 (59) 97 09/30/19 07:00 85/46 09/30/19 06:45 181 29 83/46 (58) 97 09/30/19 06:38 181 29 82/50 (61) 97 09/30/19 06:30 181 30 86/46 (59) 96 09/30/19 06:27 181 09/30/19 06:18 91/52 09/30/19 06:15 181 30 91/49 (63) 96 09/30/19 06:07 177 09/30/19 06:00 178 09/30/19 06:00 85/42 09/30/19 06:00 177 30 80/48 (59) 96 09/30/19 05:52 179 30 84/47 (59) 97 09/30/19 05:49 179 29 82/45 (57) 96 09/30/19 05:45 182 31 87/52 (64) 90 09/30/19 05:45 180 09/30/19 05:45 100 09/30/19 05:30 116 30 92/49 (63) 93 09/30/19 05:15 115 29 91/46 (61) 94 09/30/19 05:00 92/50 09/30/19 05:00 110 27 92/47 (62) 94 09/30/19 04:56 112 30 80 09/30/19 04:30 111 25 90/36 (54) 92 09/30/19 04:00 80 09/30/19 04:00 98.0 113 29 86/44 (58) 91 09/30/19 04:00 112 09/30/19 04:00 83/44 09/30/19 04:00 Mechanical Ventilator 09/30/19 03:02 115 31 80 09/30/19 03:00 116 27 94/51 (65) 96 09/30/19 03:00 113 27 100/48 (65) 91 09/30/19 03:00 100/49 09/30/19 02:30 118 31 101/49 (66) 97 09/30/19 02:00 118 29 100/49 (66) 97 09/30/19 02:00 95/48 09/30/19 01:30 100/48 09/30/19 01:30 118 30 95/46 (62) 97 09/30/19 01:04 115 32 80 09/30/19 01:00 119 31 93/46 (62) 93 09/30/19 01:00 95/55 09/30/19 00:00 120 09/30/19 00:00 99.4 116 30 93/50 (64) 94 09/30/19 00:00 98/50 09/30/19 00:00 Mechanical Ventilator 09/30/19 00:00 75 09/29/19 23:30 115 31 94/47 (63) 94 09/29/19 23:28 95/49 09/29/19 23:00 95/49 09/29/19 23:00 117 30 95/47 (63) 95 09/29/19 22:44 120 32 80 09/29/19 22:00 118 31 94/46 (62) 94 09/29/19 22:00 94/48 09/29/19 21:30 119 31 94/49 (64) 95 09/29/19 21:01 120 33 80 09/29/19 21:00 98.9 118 32 95/51 (66) 94 09/29/19 21:00 97/48 09/29/19 20:00 65 09/29/19 20:00 119 31 94/48 (63) 95 09/29/19 20:00 118 09/29/19 20:00 98/49 09/29/19 20:00 Mechanical Ventilator 09/29/19 19:30 117 31 97/47 (64) 94 09/29/19 19:01 116 25 80 09/29/19 19:00 116 29 93/47 (62) 93 09/29/19 19:00 93/47 09/29/19 18:46 99/49 09/29/19 18:30 120 32 99/49 (66) 95 09/29/19 18:00 95/49 09/29/19 18:00 119 31 95/48 (64) 95 09/29/19 17:30 119 32 98/48 (65) 94 09/29/19 17:06 118 28 80 09/29/19 17:00 120 32 98/49 (65) 94 09/29/19 17:00 99/49 09/29/19 16:30 126 35 110/53 (72) 95 09/29/19 16:00 123 35 108/51 (70) 94 09/29/19 16:00 122 09/29/19 16:00 Mechanical Ventilator 09/29/19 16:00 65 09/29/19 16:00 98.6 122 32 101/51 (68) 95 09/29/19 16:00 99/48 09/29/19 16:00 122 32 99/49 (66) 94 09/29/19 15:30 122 33 101/49 (66) 95 09/29/19 15:30 122 32 104/50 (68) 95 09/29/19 15:07 120 30 80 09/29/19 15:00 99/50 09/29/19 15:00 128 35 108/51 (70) 95 09/29/19 14:30 126 34 100/52 (68) 96 09/29/19 14:00 126 34 93/48 (63) 95 09/29/19 14:00 94/50 09/29/19 13:39 87/46 09/29/19 13:30 122 31 87/46 (60) 94 09/29/19 13:04 109 19 80 09/29/19 13:00 121 31 89/49 (62) 93 09/29/19 13:00 89/49 09/29/19 12:30 120 28 90/49 (63) 94 09/29/19 12:00 65 09/29/19 12:00 Mechanical Ventilator 09/29/19 12:00 98.6 125 31 81/49 (60) 94 09/29/19 12:00 87/48 09/29/19 12:00 123 09/29/19 11:30 119 27 86/47 (60) 94 09/29/19 11:20 112 19 80 09/29/19 11:00 124 32 82/46 (58) 90 09/29/19 11:00 86/52 09/29/19 10:30 125 33 83/47 (59) 91 Height (Feet): 5 Height (Inches): 8.00 Weight (Pounds): 115 HEENT: other - orall intubated Respiratory/Chest: decreased breath sounds, other - on ventilator, coarse sounds, tachupneic Cardiovascular: tachycardia, other - Femoral cental line Abdomen: soft, non tender Extremities: no edema Microbiology Date/Time Source Procedure Growth Status 09/28/19 20:30 Blood Blood Culture - Preliminary Gram Positive Cocci Resulted 09/28/19 20:50 Sputum Induced Gram Stain - Final Resulted 09/28/19 20:50 Sputum Culture - Preliminary Staphylococcus Aureus Resulted 09/29/19 21:30 Urine,Clean Catch Urine Culture - Preliminary NO GROWTH Resulted Laboratory Tests Test 09/29/19 14:25 09/29/19 17:20 09/29/19 20:00 09/29/19 21:30 Lactic Acid Level 8.70 mmol/L (0.4-2.0) H 9.50 mmol/L (0.66-2.22) H 8.20 mmol/L (0.4-2.0) H Urine Color Brown Urine Appearance Cloudy Urine pH 5 (4.5-8.0) Urine Specific [place] 1.010 (1.005-1.035) Urine Protein 2+ (NEGATIVE) H Urine Glucose (UA) Negative (NEGATIVE) Urine Ketones 1+ (NEGATIVE) H Urine Blood 3+ (NEGATIVE) H Urine Nitrite Negative (NEGATIVE) Urine Bilirubin 1+ (NEGATIVE) H Urine Ictotest Negative (NEGATIVE) Urine Urobilinogen 1 MG/DL (0.0-1.0) H Urine Leukocyte Esterase Negative (NEGATIVE) Urine RBC 2-4 /HPF (0 - 0) H Urine WBC 0-2 /HPF (0 - 0) Urine Squamous Epithelial Cells Few /LPF (NONE/OCC) Urine Bacteria Moderate /HPF (NONE) H Urine Yeast Few /HPF (NONE) H Test 09/29/19 23:35 09/30/19 04:00 09/30/19 07:09 Lactic Acid Level 7.10 mmol/L (0.66-2.22) H 6.00 mmol/L (0.4-2.0) H White Blood Count 42.7 K/UL (4.8-10.8) #*H Red Blood Count 2.37 M/UL (4.70-6.10) L Hemoglobin 8.2 G/DL (14.2-18.0) L Hematocrit 24.7 % (42.0-52.0) L Mean Corpuscular Volume 105 FL (80-99) H Mean Corpuscular Hemoglobin 34.5 PG (27.0-31.0) H Mean Corpuscular Hemoglobin Concent 33.1 G/DL (32.0-36.0) Red Cell Distribution Width 13.6 % (11.6-14.8) Platelet Count 38 K/UL (150-450) #L Mean Platelet Volume 7.8 FL (6.5-10.1) Neutrophils (%) (Auto) % (45.0-75.0) Lymphocytes (%) (Auto) % (20.0-45.0) Monocytes (%) (Auto) % (1.0-10.0) Eosinophils (%) (Auto) % (0.0-3.0) Basophils (%) (Auto) % (0.0-2.0) Differential Total Cells Counted 100 Neutrophils % (Manual) 64 % (45-75) Lymphocytes % (Manual) 2 % (20-45) L Monocytes % (Manual) 5 % (1-10) Eosinophils % (Manual) 0 % (0-3) Basophils % (Manual) 0 % (0-2) Metamyelocytes % 5 % (0-0) H Band Neutrophils 24 % (0-8) H Platelet Estimate Decreased L Platelet Morphology Normal Hypochromasia 1+ Macrocytosis 1+ Sodium Level 132 MMOL/L (136-145) #L Potassium Level 4.1 MMOL/L (3.5-5.1) Chloride Level 93 MMOL/L (98-107) L Carbon Dioxide Level 29 MMOL/L (21-32) Anion Gap 10 mmol/L (5-15) Blood Urea Nitrogen 60 mg/dL (7-18) H Creatinine 2.6 MG/DL (0.55-1.30) H Estimat Glomerular Filtration Rate 25.3 mL/min (>60) Glucose Level 88 MG/DL (74-106) Calcium Level 6.8 MG/DL (8.5-10.1) L Total Bilirubin 3.0 MG/DL (0.2-1.0) H Direct Bilirubin 2.4 MG/DL (0.0-0.3) H Aspartate Amino Transf (AST/SGOT) 59 U/L (15-37) H Alanine Aminotransferase (ALT/SGPT) 36 U/L (12-78) Alkaline Phosphatase 66 U/L (46-116) Total Protein 5.8 G/DL (6.4-8.2) L Albumin 1.6 G/DL (3.4-5.0) L Globulin 4.2 g/dL Albumin/Globulin Ratio 0.4 (1.0-2.7) L Current Medications Medications (Trade) Dose Ordered Sig/Akash Route PRN Reason Start Time Stop Time Status Last Admin Dose Admin Acetaminophen (Tylenol) 650 mg Q6H PRN NG FEVER 09/30/19 10:30 10/30/19 10:29 Amiodarone HCl 900 mg/Dextrose 500 ml @ 0 mls/hr Q24H IV 09/30/19 11:00 10/01/19 10:59 Cefepime HCl 2 gm/ Dextrose 55 ml @ 110 mls/hr Q24H IVPB 09/29/19 15:00 10/06/19 14:59 09/29/19 13:35 Chlorhexidine Gluconate (Tammy-Hex 2%) 1 applic DAILY@1999 TOPIC 09/28/19 20:00 10/28/19 19:59 09/29/19 20:41 Diphenhydramine HCl (Benadryl) 25 mg Q6H PRN ORAL Itching 09/28/19 13:25 10/28/19 13:24 09/29/19 10:09 Fentanyl Citrate 1000 mcg/Sodium Chloride 100 ml @ 0 mls/hr Q24H IV 09/29/19 12:57 10/05/19 12:56 09/28/19 14:08 Hydrocortisone (Solu-CORTEF) 100 mg Q6H IV 09/29/19 08:30 10/29/19 08:29 09/30/19 08:50 Linezolid 300 ml @ 300 mls/hr Q12H IVPB 09/29/19 14:00 10/06/19 13:59 09/30/19 01:18 Lorazepam (Ativan 2mg/ml 1ml) 1 mg Q4H PRN IV For Anxiety 09/28/19 13:25 10/05/19 13:24 Multivitamins (Multivitamins) 1 tab DAILY ORAL 09/29/19 09:00 10/22/19 08:59 09/30/19 08:50 Nicotine (Nicoderm) 1 patch Q24H TDERMAL 09/29/19 01:00 10/29/19 00:59 09/30/19 01:18 Norepinephrine Bitartrate 8 mg/ Dextrose 558 ml @ 0 mls/hr Q24H IV 09/28/19 23:00 10/28/19 22:59 09/29/19 23:28 Pantoprazole (Protonix) 40 mg ACBREAKFAST ORAL 09/29/19 06:30 10/22/19 08:59 09/30/19 05:16 Thiamine HCl (Vitamin B1) 100 mg DAILY ORAL 09/29/19 09:00 10/22/19 08:59 09/30/19 08:51 Jamie Swanson MD Sep 30, 2019 10:10
[2019-09-30] MEDS: Amiodarone 900 MG in D5W 500ml 482 ML IV SCH (10:25)
--- NOTE | 2019-09-30 10:42 | NUR ---
NURSE NOTES: PT started on Amiodarone drip per MD order, will follow [facility] protocol for titration and continue to monitor PT.
[2019-09-30] MEDS: Norepinephrine Bitartrate 8 MG in D5W 500ml 550 ML IV SCH ×2 (11:05→18:37)
--- NOTE | 2019-09-30 12:36 | NUR ---
NURSE NOTES: PT remains on amiodarone 1mg/min and levophed 15mcg/min, vp organizational development shows 161 ST-SVT, BP 87/60. Will continue to monitor PT.
[2019-09-30] MEDS: Cefepime HCl 2 GM in D5W 55 ML IVPB SCH (15:00)
--- NOTE | 2019-09-30 19:30 | NUR ---
HAND-OFF: Report and PT given to REINALDO Aiken.
--- NOTE | 2019-09-30 20:00 | NUR ---
NURSE NOTES: SBAR from Dave NAJERA. Patient is nonverbal at this time, orally intubated ETT 7.5/24cm at the lower lip, AC 14, 480tv, 100% Fio2 and 5 of peep. OGT tube. L femoral TLC noted. Patient has Levophed running and Amiodarone gtt at 0.5mg/hr. HR is 144 ST, patient goes in and out of Afib. 100/49, SpO2 is 93%, RR 22, Flacc score of 0/10. Temperature is 99.4F. Condom cath noted. Bilateral soft wrist restraints noted, pulse noted, skin is intact. Safety measures in place, will continue to monitor.
[2019-09-30] MEDS: Dyna-Hex 2% Top Sol 2oz TOPIC SCH (20:09)
--- NOTE | 2019-09-30 22:00 | NUR ---
NURSE NOTES: PM meds given, repositioned and oral care provided slowly decreasing pressors. suctioning given. HR still ranging 130-140s
[2019-10-01] VITALS (56 sets, daily range): BP systolic 79–133; BP diastolic 35–71
--- NOTE | 2019-10-01 | NUR ---
NURSE NOTES: Repositioned and oral care given HR still ranging 130s-140s afib rhythm. Pressors still ongoing, and being titrating down. SpO2 is 94% and on Fio2 100%
--- NOTE | 2019-10-01 02:00 | NUR ---
NURSE NOTES: Repositioned oral care given deep and oral suctioning provided. HR 120s-130s Afib and sometimes sinus tachy Levophed and amio gtt ongoing Pressors is slowly being titrated down.
[2019-10-01] MEDS: Hydrocortisone 100mg Inj IV SCH ×4 (02:30→20:23)
--- NOTE | 2019-10-01 04:00 | NUR ---
NURSE NOTES: Repositioned deep and oral suctioning provided. HR 120s-130s Afib and sometimes sinus tachy Levophed and amio gtt ongoing Pressors is slowly being titrated down. Am labs drawn and sent. BP: 91/57
--- NOTE | 2019-10-01 05:15 | Progress Note ---
DATE: 09/30/2019 CARDIOLOGY PROGRESS NOTE SUBJECTIVE: The patient remains in intensive care unit. Blood pressure parameters tenuous. Full ventilator support. Now with supraventricular tachycardias with rates above 180. OBJECTIVE: VITAL SIGNS: Blood pressure 85/46, respirations 28, and afebrile. HEENT: Orally intubated. LUNGS: Bilateral breath sounds. Wheezing. CARDIAC: Regular rhythm. Rapid rate. ABDOMEN: Soft. EXTREMITIES: No edema. LABORATORY DATA: White count 42 and hemoglobin 8.2. Lactic acid 4.4. Sputum positive for Staph aureus. IMPRESSION: 1. Sepsis with shock. 2. Adrenal insufficiency. 3. Respiratory failure. 4. Severe bronchiectasis. PLAN: 1. Stress dose steroids. 2. Antimicrobials. 3. Ventilator support. 4. Taper pressors as able. 5. Volume resuscitation. 6. Remains critical and guarded. Ar Gomez M.D. DR: CECILY JOB#: [id number] CC:
[2019-10-01] MEDS: Norepinephrine Bitartrate 8 MG in D5W 500ml 550 ML IV SCH (05:56)
[2019-10-01 06:08] LABS: ALANINE AMINOTRANSFERASE 45 U/L (12-78); ALBUMIN 1.6 G/DL (3.4-5.0); ALBUMIN/GLOBULIN RATIO 0.4 (1.0-2.7); ALKALINE PHOSPHATASE 80 U/L (46-116); ANION GAP 8 mmol/L (5-15); ASPARTATE AMINO TRANSFERASE 73 U/L (15-37); BILIRUBIN,TOTAL 2.6 MG/DL (0.2-1.0); BLOOD UREA NITROGEN 70 mg/dL (7-18); CALCIUM 6.6 MG/DL (8.5-10.1); CARBON DIOXIDE 28 MMOL/L (21-32); CHLORIDE 91 MMOL/L (98-107); CREATININE 2.6 MG/DL (0.55-1.30); POTASSIUM 4.4 MMOL/L (3.5-5.1); SODIUM 127 MMOL/L (136-145)
[2019-10-01 06:49] LABS: HEMATOCRIT 23.1 % (42.0-52.0); HEMOGLOBIN 7.7 G/DL (14.2-18.0); MEAN CORPUSCULAR VOLUME 103 FL (80-99); PLATELET COUNT 48 K/UL (150-450); RED BLOOD COUNT 2.25 M/UL (4.70-6.10)
[2019-10-01 07:03] LABS: WHITE BLOOD COUNT 35.1 K/UL (4.8-10.8)
--- NOTE | 2019-10-01 07:24 | NUR ---
HAND-OFF: Report given to Gordon NAJERA.
--- NOTE | 2019-10-01 07:25 | NUR ---
NURSE NOTES: Received report from REINALDO Aiken. Patient is lethargic. ETT 7.5/24cm at lip lien with vent setting AC 14, VT 480, Peep 5 and FiO2 100%. OGT tube intact and feeding has not started yet d/t unstable status. Condom cath intact. Left femoral TLC intact and clean and running with amiodarone 0.5mg/min and levo 8mcg/min. Afib 120-130s and BP 107/50 on the monitor. Bilateral soft wrist bands restrains on. Skin intact on the restraints sites and Hands are warm to touch. Kept dry, clean and comfortable. Will continue plan of care.
--- NOTE | 2019-10-01 07:27 | NUR ---
NURSE NOTES: Seen by Dr. Leavitt and assessed patient. Updated patient's status; hgb 7.7, Na 127, plt 48 and poor urine output. He said he will order 1 pRBC and he will document as emergency d/t no responsive libertarian noted. Will follow up.
--- NOTE | 2019-10-01 07:53 | General Progress Note ---
Assessment/Plan Problem List: (1) AMS (altered mental status) ICD Codes: R41.82 - Altered mental status, unspecified SNOMED: 951612895 (2) Sepsis ICD Codes: A41.9 - Sepsis, unspecified organism SNOMED: 08454361 (3) Shock ICD Codes: R57.9 - Shock, unspecified SNOMED: 86242920 (4) Cirrhosis ICD Codes: K74.60 - Unspecified cirrhosis of liver SNOMED: 27653448 (5) Hypoxia ICD Codes: R09.02 - Hypoxemia SNOMED: 189794317 (6) Respiratory failure, acute ICD Codes: J96.00 - Acute respiratory failure, unspecified whether with hypoxia or hypercapnia SNOMED: 08774964 Qualifiers: Qualified Codes: J96.01 - Acute respiratory failure with hypoxia Status: stable Assessment/Plan: vent support pressors ivf stress dose steroids iv abx transfuse emergently. pt has no family or POA critical and guarded poor prognosis Subjective ROS Limited/Unobtainable: Yes Constitutional: Reports: malaise, weakness HEENT: Reports: no symptoms Cardiovascular: Reports: no symptoms Respiratory: Reports: shortness of breath Gastrointestinal/Abdominal: Reports: difficulty swallowing Genitourinary: Reports: no symptoms Neurologic/Psychiatric: Reports: anxiety, emotional problems Endocrine: Reports: no symptoms Hematologic/Lymphatic: Reports: anemia Allergies: Coded Allergies: PENICILLINS (Verified Allergy, Intermediate, Rash, 09/01/19) Patient stated at this time All Systems: reviewed and negative except above Subjective no change. remains hypotensive on pressors. decreased h/h noted. no reports of bleeding. on amio and levophed Objective Last 24 Hour Vital Signs Date Time Temp Pulse Resp B/P (MAP) Pulse Ox O2 Delivery O2 Flow Rate FiO2 10/01/19 07:17 124 25 100 10/01/19 07:00 128 24 107/50 (69) 92 10/01/19 07:00 107/50 10/01/19 06:35 127 24 99/35 (56) 99 10/01/19 06:30 129 25 81/49 (60) 99 10/01/19 06:00 127 24 83/59 (67) 98 10/01/19 06:00 83/59 10/01/19 05:56 82/53 10/01/19 05:30 127 25 88/41 (57) 99 1/17/20 05:00 126 25 82/53 (63) 95 10/01/19 05:00 82/53 10/01/19 04:39 126 28 100 10/01/19 04:30 98.9 126 25 91/57 (68) 99 10/01/19 04:00 Mechanical Ventilator 10/01/19 04:00 128 25 88/53 (65) 94 10/01/19 04:00 123 10/01/19 04:00 91/57 10/01/19 04:00 100 10/01/19 03:32 129 24 100 10/01/19 03:30 130 24 89/52 (64) 98 10/01/19 03:00 129 27 105/58 (74) 91 10/01/19 03:00 89/52 10/01/19 02:30 130 26 100/50 (67) 95 10/01/19 02:05 138 28 100/66 (77) 95 10/01/19 02:00 100/65 10/01/19 02:00 133 26 79/56 (64) 95 10/01/19 01:30 134 27 82/49 (60) 95 10/01/19 01:30 128 26 100 10/01/19 01:00 85/52 10/01/19 01:00 138 29 85/52 (63) 94 10/01/19 00:30 137 28 80/47 (58) 94 10/01/19 00:00 100 10/01/19 00:00 Mechanical Ventilator 10/01/19 00:00 99.0 136 27 92/51 (65) 94 10/01/19 00:00 88/47 10/01/19 00:00 150 09/30/19 23:33 140 28 87/58 (68) 95 09/30/19 23:30 137 27 79/51 (60) 94 09/30/19 23:19 138 29 100 09/30/19 23:00 137 29 84/54 (64) 94 09/30/19 23:00 80/47 09/30/19 22:00 137 29 88/52 (64) 94 09/30/19 22:00 99/54 09/30/19 21:36 140 29 94/53 (67) 93 09/30/19 21:31 136 29 83/50 (61) 93 09/30/19 21:30 138 29 87/54 (65) 93 09/30/19 21:00 95/52 09/30/19 21:00 141 30 100/55 (70) 92 09/30/19 20:42 133 28 100 09/30/19 20:30 140 29 88/53 (65) 93 09/30/19 20:00 99.4 142 30 96/67 (77) 94 09/30/19 20:00 100 09/30/19 20:00 Mechanical Ventilator 09/30/19 20:00 93/50 09/30/19 20:00 145 09/30/19 19:30 139 29 100/64 (76) 93 09/30/19 19:13 142 30 100 09/30/19 19:00 100/49 09/30/19 19:00 140 28 88/56 (67) 94 09/30/19 18:37 70/52 09/30/19 18:30 140 29 70/52 (58) 91 09/30/19 18:00 70/52 09/30/19 18:00 147 29 96/59 (71) 94 09/30/19 17:30 151 29 98/47 (64) 94 09/30/19 17:00 151 29 96/56 (69) 94 09/30/19 17:00 98/47 09/30/19 16:50 139 30 100 09/30/19 16:30 152 30 100/52 (68) 95 09/30/19 16:00 Mechanical Ventilator 09/30/19 16:00 95 09/30/19 16:00 98.6 148 30 92/51 (65) 94 09/30/19 16:00 100/52 09/30/19 16:00 160 09/30/19 15:30 153 30 83/59 (67) 93 09/30/19 15:00 147 28 100 09/30/19 15:00 86/65 09/30/19 15:00 157 30 78/54 (62) 92 09/30/19 14:30 155 30 90/52 (65) 92 09/30/19 14:00 90/52 09/30/19 14:00 156 31 95/64 (74) 92 09/30/19 13:30 157 30 90/55 (67) 93 09/30/19 13:01 153 30 80 09/30/19 13:00 91/55 09/30/19 13:00 164 29 91/55 (67) 93 09/30/19 12:30 164 29 87/60 (69) 93 09/30/19 12:00 Mechanical Ventilator 09/30/19 12:00 179 09/30/19 12:00 98.7 179 29 84/59 (67) 89 09/30/19 12:00 72/49 09/30/19 12:00 95 09/30/19 11:30 167 29 72/49 (57) 93 09/30/19 11:05 89/67 09/30/19 11:00 120/67 09/30/19 11:00 172 29 98/48 (65) 95 09/30/19 10:49 162 30 80 09/30/19 10:00 185 29 82/52 (62) 96 09/30/19 10:00 130/67 09/30/19 09:36 150 29 80 09/30/19 09:30 180 28 74/46 (55) 95 09/30/19 09:00 74/48 09/30/19 09:00 167 28 74/46 (55) 93 09/30/19 08:30 183 29 82/42 (55) 86 09/30/19 08:00 98.5 179 27 90/57 (68) 96 09/30/19 08:00 82/42 09/30/19 08:00 166 09/30/19 08:00 100 09/30/19 08:00 Mechanical Ventilator Intake and Output 09/30/19 10/01/19 19:00 07:00 Intake Total 1456.1515 ml 687.592 ml Output Total 500 ml 50 ml Balance 956.1515 ml 637.592 ml IV Total 1406.1515 ml 687.592 ml Other 50 ml Output Urine Total 500 ml 50 ml # Bowel Movements 3 Laboratory Tests 09/30/19 10:10: Lactic Acid Level 5.30H 09/30/19 14:20: Lactic Acid Level 4.50H 09/30/19 18:00: Lactic Acid Level 4.40H 10/01/19 00:20: Lactic Acid Level 3.70H 10/01/19 04:00: White Blood Count 35.1*H, Red Blood Count 2.25L, Hemoglobin 7.7L, Hematocrit 23.1L, Mean Corpuscular Volume 103H, Mean Corpuscular Hemoglobin 34.1H, Mean Corpuscular Hemoglobin Concent 33.2, Red Cell Distribution Width 14.0, Platelet Count 48L, Mean Platelet Volume 7.1, Neutrophils (%) (Auto) , Lymphocytes (%) ( Auto) , Monocytes (%) (Auto) , Eosinophils (%) (Auto) , Basophils (%) (Auto) , Neutrophils % (Manual) [Pending], Lymphocytes % (Manual) [Pending], Platelet Estimate [Pending], Platelet Morphology [Pending], Sodium Level 127L, Potassium Level 4.4, Chloride Level 91L, Carbon Dioxide Level 28, Anion Gap 8, Blood Urea Nitrogen 70H, Creatinine 2.6H, Estimat Glomerular Filtration Rate 25.3, Glucose Level 153H, Lactic Acid Level 3.70H, Calcium Level 6.6L, Total Bilirubin 2.6H, Direct Bilirubin 2.0H, Aspartate Amino Transf (AST/SGOT) 73H, Alanine Aminotransferase (ALT/SGPT) 45, Alkaline Phosphatase 80, Total Protein 5.7L, Albumin 1.6L, Globulin 4.1, Albumin/Globulin Ratio 0.4L Height (Feet): 5 Height (Inches): 8.00 Weight (Pounds): 113 Objective General Appearance: WD/WN, lethargic. orally intubated Neck: supple Cardiovascular: regular rhythm Respiratory/Chest: lungs td rhonchi Abdomen: normal bowel sounds, non tender. small reducible periumbilical hernia Edema: no edema noted Arm (L), no edema noted Arm (R), no edema noted Leg (L), no edema noted Leg (R), no edema noted Pedal (L), no edema noted Pedal (R), no edema noted Generalized Henry Leavitt MD Oct 01, 2019 07:53
[2019-10-01] MEDS: Thiamine 100mg tab ORAL SCH (08:09)
--- NOTE | 2019-10-01 08:50 | Pulmonology Progress Note ---
Assessment/Plan Assessment/Plan Impression - MRSA Pneumonia - Persistent leucocytosis - Hypoxic respiratory Failure - CHFpEF - Atrial Fibrillation - Cirrhosis, h/o ETOH Use, ascites s/p Paracentesis - Homeless - Enterobacter UTI s/p rx - Thrombocytopenia - Anasarca - tachycardia - overwhelming sepsis +++ positive cultures PLAN doing poorly currently on vent off steroids will need bronchoscopy if able once more stable currently unstable and extremely critical remains ill in ICU prognosis remains poor impression, plan, and exam edited and reviewed in detail care discussed with RN Subjective ROS Limited/Unobtainable: Yes Allergies: Coded Allergies: PENICILLINS (Verified Allergy, Intermediate, Rash, 09/01/19) Patient stated at this time Subjective care noted on vent tachycardia better on full vent support Objective Last 24 Hour Vital Signs Date Time Temp Pulse Resp B/P (MAP) Pulse Ox O2 Delivery O2 Flow Rate FiO2 10/01/19 07:17 124 25 100 10/01/19 07:00 128 24 107/50 (69) 92 10/01/19 07:00 107/50 10/01/19 06:35 127 24 99/35 (56) 99 10/01/19 06:30 129 25 81/49 (60) 99 10/01/19 06:00 127 24 83/59 (67) 98 10/01/19 06:00 83/59 10/01/19 05:56 82/53 10/01/19 05:30 127 25 88/41 (57) 99 10/01/19 05:00 126 25 82/53 (63) 95 10/01/19 05:00 82/53 10/01/19 04:39 126 28 100 10/01/19 04:30 98.9 126 25 91/57 (68) 99 10/01/19 04:00 Mechanical Ventilator 10/01/19 04:00 128 25 88/53 (65) 94 10/01/19 04:00 123 10/01/19 04:00 91/57 10/01/19 04:00 100 10/01/19 03:32 129 24 100 10/01/19 03:30 130 24 89/52 (64) 98 10/01/19 03:00 129 27 105/58 (74) 91 10/01/19 03:00 89/52 10/01/19 02:30 130 26 100/50 (67) 95 10/01/19 02:05 138 28 100/66 (77) 95 10/01/19 02:00 100/65 10/01/19 02:00 133 26 79/56 (64) 95 10/01/19 01:30 134 27 82/49 (60) 95 10/01/19 01:30 128 26 100 10/01/19 01:00 85/52 10/01/19 01:00 138 29 85/52 (63) 94 10/01/19 00:30 137 28 80/47 (58) 94 10/01/19 00:00 100 10/01/19 00:00 Mechanical Ventilator 10/01/19 00:00 99.0 136 27 92/51 (65) 94 10/01/19 00:00 88/47 10/01/19 00:00 150 09/30/19 23:33 140 28 87/58 (68) 95 09/30/19 23:30 137 27 79/51 (60) 94 09/30/19 23:19 138 29 100 09/30/19 23:00 137 29 84/54 (64) 94 09/30/19 23:00 80/47 09/30/19 22:00 137 29 88/52 (64) 94 09/30/19 22:00 99/54 09/30/19 21:36 140 29 94/53 (67) 93 09/30/19 21:31 136 29 83/50 (61) 93 09/30/19 21:30 138 29 87/54 (65) 93 09/30/19 21:00 95/52 09/30/19 21:00 141 30 100/55 (70) 92 09/30/19 20:42 133 28 100 09/30/19 20:30 140 29 88/53 (65) 93 09/30/19 20:00 99.4 142 30 96/67 (77) 94 09/30/19 20:00 100 09/30/19 20:00 Mechanical Ventilator 09/30/19 20:00 93/50 09/30/19 20:00 145 09/30/19 19:30 139 29 100/64 (76) 93 09/30/19 19:13 142 30 100 09/30/19 19:00 100/49 09/30/19 19:00 140 28 88/56 (67) 94 09/30/19 18:37 70/52 09/30/19 18:30 140 29 70/52 (58) 91 09/30/19 18:00 70/52 09/30/19 18:00 147 29 96/59 (71) 94 09/30/19 17:30 151 29 98/47 (64) 94 09/30/19 17:00 151 29 96/56 (69) 94 09/30/19 17:00 98/47 09/30/19 16:50 139 30 100 09/30/19 16:30 152 30 100/52 (68) 95 09/30/19 16:00 Mechanical Ventilator 09/30/19 16:00 95 09/30/19 16:00 98.6 148 30 92/51 (65) 94 09/30/19 16:00 100/52 09/30/19 16:00 160 09/30/19 15:30 153 30 83/59 (67) 93 09/30/19 15:00 147 28 100 09/30/19 15:00 86/65 09/30/19 15:00 157 30 78/54 (62) 92 09/30/19 14:30 155 30 90/52 (65) 92 09/30/19 14:00 90/52 09/30/19 14:00 156 31 95/64 (74) 92 09/30/19 13:30 157 30 90/55 (67) 93 09/30/19 13:01 153 30 80 09/30/19 13:00 91/55 09/30/19 13:00 164 29 91/55 (67) 93 09/30/19 12:30 164 29 87/60 (69) 93 09/30/19 12:00 Mechanical Ventilator 09/30/19 12:00 179 09/30/19 12:00 98.7 179 29 84/59 (67) 89 09/30/19 12:00 72/49 09/30/19 12:00 95 09/30/19 11:30 167 29 72/49 (57) 93 09/30/19 11:05 89/67 09/30/19 11:00 120/67 09/30/19 11:00 172 29 98/48 (65) 95 09/30/19 10:49 162 30 80 09/30/19 10:00 185 29 82/52 (62) 96 09/30/19 10:00 130/67 09/30/19 09:36 150 29 80 09/30/19 09:30 180 28 74/46 (55) 95 09/30/19 09:00 74/48 09/30/19 09:00 167 28 74/46 (55) 93 Intake and Output 09/30/19 10/01/19 19:00 07:00 Intake Total 1456.1515 ml 687.592 ml Output Total 500 ml 50 ml Balance 956.1515 ml 637.592 ml IV Total 1406.1515 ml 687.592 ml Other 50 ml Output Urine Total 500 ml 50 ml # Bowel Movements 3 Objective WDWN NAD coarse breath sounds bilaterally without rhonchi or wheeze [id number] tacy without MRG NABS nontender no HSM some distention no CC some edema nonfocal Microbiology Date/Time Source Procedure Growth Status 09/29/19 14:25 Blood Blood Culture - Preliminary Staphylococcus Aureus Resulted 09/28/19 20:30 Blood Blood Culture - Preliminary Staphylococcus Aureus Resulted 09/28/19 20:50 Sputum Induced Gram Stain - Final Complete 09/28/19 20:50 Sputum Culture - Final Staphylococcus Aureus - Mrsa Complete 09/29/19 21:30 Urine,Clean Catch Urine Culture - Preliminary Gram Negative Bacillus 1 Resulted Laboratory Tests 09/30/19 10:10: Lactic Acid Level 5.30H 09/30/19 14:20: Lactic Acid Level 4.50H 09/30/19 18:00: Lactic Acid Level 4.40H 10/01/19 00:20: Lactic Acid Level 3.70H 10/01/19 04:00: White Blood Count 35.1*H, Red Blood Count 2.25L, Hemoglobin 7.7L, Hematocrit 23.1L, Mean Corpuscular Volume 103H, Mean Corpuscular Hemoglobin 34.1H, Mean Corpuscular Hemoglobin Concent 33.2, Red Cell Distribution Width 14.0, Platelet Count 48L, Mean Platelet Volume 7.1, Neutrophils (%) (Auto) , Lymphocytes (%) ( Auto) , Monocytes (%) (Auto) , Eosinophils (%) (Auto) , Basophils (%) (Auto) , Differential Total Cells Counted 100, Neutrophils % (Manual) 80H, Lymphocytes % (Manual) 1L, Monocytes % (Manual) 2, Eosinophils % (Manual) 0, Basophils % ( Manual) 0, Metamyelocytes % 2H, Band Neutrophils 15H, Platelet Estimate DecreasedL, Platelet Morphology Normal, Hypochromasia 1+, Anisocytosis 1+, Macrocytosis 1+, Sodium Level 127L, Potassium Level 4.4, Chloride Level 91L, Carbon Dioxide Level 28, Anion Gap 8, Blood Urea Nitrogen 70H, Creatinine 2.6H, Estimat Glomerular Filtration Rate 25.3, Glucose Level 153H, Lactic Acid Level 3.70H, Calcium Level 6.6L, Total Bilirubin 2.6H, Direct Bilirubin 2.0H, Aspartate Amino Transf (AST/SGOT) 73H, Alanine Aminotransferase (ALT/SGPT) 45, Alkaline Phosphatase 80, Total Protein 5.7L, Albumin 1.6L, Globulin 4.1, Albumin /Globulin Ratio 0.4L Current Medications Medications (Trade) Dose Ordered Sig/Akash Route PRN Reason Start Time Stop Time Status Last Admin Dose Admin Acetaminophen (Tylenol) 650 mg Q6H PRN NG FEVER 09/30/19 10:30 10/30/19 10:29 Amiodarone HCl 900 mg/Dextrose 500 ml @ 0 mls/hr Q24H IV 09/30/19 11:00 10/01/19 10:59 09/30/19 10:25 Cefepime HCl 2 gm/ Dextrose 55 ml @ 110 mls/hr Q24H IVPB 09/29/19 15:00 10/06/19 14:59 09/30/19 15:00 Chlorhexidine Gluconate (Tammy-Hex 2%) 1 applic DAILY@2000 TOPIC 09/28/19 20:00 10/28/19 19:59 09/30/19 20:09 Diphenhydramine HCl (Benadryl) 25 mg Q6H PRN ORAL Itching 09/28/19 13:25 10/28/19 13:24 09/29/19 10:09 Fentanyl Citrate 1000 mcg/Sodium Chloride 100 ml @ 0 mls/hr Q24H IV 09/29/19 12:57 10/05/19 12:56 09/28/19 14:08 Hydrocortisone (Solu-CORTEF) 100 mg Q6H IV 09/29/19 08:30 10/29/19 08:29 10/01/19 08:09 Linezolid 300 ml @ 300 mls/hr Q12H IVPB 09/29/19 14:00 10/06/19 13:59 09/30/19 14:00 Lorazepam (Ativan 2mg/ml 1ml) 1 mg Q4H PRN IV For Anxiety 09/28/19 13:25 10/05/19 13:24 Multivitamins (Multivitamins) 1 tab DAILY ORAL 09/29/19 09:00 10/22/19 08:59 10/01/19 08:09 Nicotine (Nicoderm) 1 patch Q24H TDERMAL 09/29/19 01:00 10/29/19 00:59 09/30/19 01:18 Norepinephrine Bitartrate 8 mg/ Dextrose 558 ml @ 0 mls/hr Q24H IV 09/28/19 23:00 10/28/19 22:59 10/01/19 05:56 Pantoprazole (Protonix) 40 mg ACBREAKFAST ORAL 09/29/19 06:30 10/22/19 08:59 10/01/19 05:55 Thiamine HCl (Vitamin B1) 100 mg DAILY ORAL 09/29/19 09:00 10/22/19 08:59 10/01/19 08:09 Simon Lopez MD Oct 01, 2019 08:50
[2019-10-01] MEDS: Amiodarone 900 MG in D5W 500ml 482 ML IV SCH (08:53)
--- NOTE | 2019-10-01 08:56 | NUR ---
RD ASSESSMENT & RECOMMENDATIONS SEE CARE ACTIVITY FOR COMPLETE ASSESSMENT DAILY ESTIMATED NEEDS: Needs based on Liver, Pulmonary, Critical care 55kg 22-30 kcals/kg 6072-3636 total kcals 1.2-2 g protein/kg 79-110 g total protein 25-30 mL/kg 7095-6454 total fluid mLs NUTRITION DIAGNOSIS: * Swallowing difficulty R/T dysphagia, respiratory status as evidenced by pt on [facility] soft finely chopped texture- was upgraded to Soft easy chew, was mostly on BIPAP, on non-rebreather during meals-> now orally intubated in ICU, on max pressor support, NPO * Decreased sodium and fat needs r/t clinical status, ascites, as evidenced by s/p paracentesis, elev LFT's, elev T bili (INACTIVE) CURRENT DIET:NPO ENTERAL NUTRITION RECOMMENDATIONS: WHEN HD STABLE: Vital AF 1.2 @ 50ml/hr x 24 hrs to provide 1200ml, 1440kcal, 90g prot, 973ml free water * WHEN PT HEMODYNAMICALLY STABLE: -> initiate Vital AF 1.2 @ 10ml/hr x 6 hrs -> advance 10ml q 4-6 hrs as tolerated -> HOB over 30 degrees/ water flush per MD WITHOUT HD STABILTY: consider trophic feeding of Vital AF 1.2 @ 5-10ml/hr if able to raise bed >30 degrees ADDITIONAL RECOMMENDATIONS: 1) Obtain daily standing weight for accuracy or calibrated bedscale wt current bedscale wt 115 bs vs initial bedscale wt 158lbs 2) Monitor HD stability: on NE @ 30mcg-> now @8mcg 3) Monitor renal fxn and liver fxn: creat and T bili trend up . . .
--- NOTE | 2019-10-01 09:20 | NUR ---
NURSE NOTES: Collected blood for ABO type & cross and lactic acid and sent to the lab. Will follow up.
--- NOTE | 2019-10-01 11:11 | NUR ---
NURSE NOTES: Verified pRBC with REINALDO De Paz and started blood transfusion rate @80ml/hr. Will continue plan of care.
--- NOTE | 2019-10-01 11:26 | NUR ---
NURSE NOTES: No adverse reaction noted. VSS, afebrile. Blood transfusion rate increased to 120ml/hr. Will continue to monitor closely.
--- NOTE | 2019-10-01 11:59 | NUR ---
NURSE NOTES: Called Dr. Gomez and left message if we can continue amiodarone drip. Will follow up.
[2019-10-01] MEDS ORDERED: Amiodarone 900 MG in D5W 500ml 482 ML IV SCH (12:45)
--- NOTE | 2019-10-01 13:28 | NUR ---
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 97.7 HR 127 RR 26 B/P 113/55 AC 14 TV 480 FIO2 100% PEEP 5 WBC 35.1 BANDS 15 H/H 7.7/23.1 LACTID ACID 3.20 NA 127 IS: AMIODARONE GTT CEFEPIME IV ZYVOX IV SOLU CORTEF IV PROTONIX ICU STATUS
--- NOTE | 2019-10-01 13:48 | Infectious Diseases Prog Note ---
Assessment/Plan Assessment/Plan IMPRESSION: 1. MRSA pneumonia, 2. Gram negative UTI 3. Cirrhosis with ascites. 4. MRSA colonization. 5. Anemia. 6. Thrombocytopenia. 7. Tachycardia 8. Hypercapnic respiratory failure. 9. Leukocytosis, worsening 10 Staph aureus sepsis 11. acute renal failure 12. septic shock 13. Lactic acidosis 14. Thrombocytopenia RECOMMENDATIONS: Continue Cefepime & Zyvox Will f/u cultures Poor prognosis Subjective ROS Limited/Unobtainable: Yes Constitutional: Denies: fever Cardiovascular: Reports: other - on Levophed Hematologic: Reports: other - receiving blood transfusion Allergies: Coded Allergies: PENICILLINS (Verified Allergy, Intermediate, Rash, 09/01/19) Patient stated at this time Objective Vital Signs Last 24 Hour Vital Signs Date Time Temp Pulse Resp B/P (MAP) Pulse Ox O2 Delivery O2 Flow Rate FiO2 10/01/19 12:00 98.0 122 22 97/53 (68) 100 10/01/19 12:00 105/70 10/01/19 12:00 Mechanical Ventilator 10/01/19 12:00 100 10/01/19 12:00 115 10/01/19 11:26 98.0 126 26 113/55 (74) 100 10/01/19 11:15 126 26 113/55 (74) 100 10/01/19 11:11 97.7 127 27 118/61 (80) 100 10/01/19 11:06 135 24 100 10/01/19 11:00 127 27 118/61 (80) 100 10/01/19 11:00 113/55 10/01/19 10:45 129 24 96/66 (76) 98 10/01/19 10:30 129 25 120/69 (86) 100 10/01/19 10:15 127 24 105/57 (73) 100 10/01/19 10:00 105/57 10/01/19 10:00 125 24 110/64 (79) 99 10/01/19 09:30 129 28 111/64 (80) 100 10/01/19 09:29 115 22 100 10/01/19 09:00 123 23 120/62 (81) 99 10/01/19 09:00 117/54 10/01/19 08:30 126 23 105/64 (78) 100 10/01/19 08:00 100 10/01/19 08:00 Mechanical Ventilator 10/01/19 08:00 98.8 125 21 97/42 (60) 99 10/01/19 08:00 121 10/01/19 08:00 97/42 10/01/19 07:30 128 24 93/45 (61) 93 10/01/19 07:17 124 25 100 10/01/19 07:00 128 24 107/50 (69) 92 10/01/19 07:00 107/50 10/01/19 06:35 127 24 99/35 (56) 99 10/01/19 06:30 129 25 81/49 (60) 99 10/01/19 06:00 127 24 83/59 (67) 98 10/01/19 06:00 83/59 10/01/19 05:56 82/53 10/01/19 05:30 127 25 88/41 (57) 99 10/01/19 05:00 126 25 82/53 (63) 95 10/01/19 05:00 82/53 10/01/19 04:39 126 28 100 10/01/19 04:30 98.9 126 25 91/57 (68) 99 10/01/19 04:00 Mechanical Ventilator 10/01/19 04:00 128 25 88/53 (65) 94 10/01/19 04:00 123 10/01/19 04:00 91/57 10/01/19 04:00 100 10/01/19 03:32 129 24 100 10/01/19 03:30 130 24 89/52 (64) 98 10/01/19 03:00 129 27 105/58 (74) 91 10/01/19 03:00 89/52 10/01/19 02:30 130 26 100/50 (67) 95 10/01/19 02:05 138 28 100/66 (77) 95 10/01/19 02:00 100/65 10/01/19 02:00 133 26 79/56 (64) 95 10/01/19 01:30 134 27 82/49 (60) 95 10/01/19 01:30 128 26 100 10/01/19 01:00 85/52 10/01/19 01:00 138 29 85/52 (63) 94 10/01/19 00:30 137 28 80/47 (58) 94 10/01/19 00:00 100 10/01/19 00:00 Mechanical Ventilator 10/01/19 00:00 99.0 136 27 92/51 (65) 94 10/01/19 00:00 88/47 10/01/19 00:00 150 09/30/19 23:33 140 28 87/58 (68) 95 09/30/19 23:30 137 27 79/51 (60) 94 09/30/19 23:19 138 29 100 09/30/19 23:00 137 29 84/54 (64) 94 09/30/19 23:00 80/47 09/30/19 22:00 137 29 88/52 (64) 94 09/30/19 22:00 99/54 09/30/19 21:36 140 29 94/53 (67) 93 09/30/19 21:31 136 29 83/50 (61) 93 09/30/19 21:30 138 29 87/54 (65) 93 09/30/19 21:00 95/52 09/30/19 21:00 141 30 100/55 (70) 92 09/30/19 20:42 133 28 100 09/30/19 20:30 140 29 88/53 (65) 93 09/30/19 20:00 99.4 142 30 96/67 (77) 94 09/30/19 20:00 100 09/30/19 20:00 Mechanical Ventilator 09/30/19 20:00 93/50 09/30/19 20:00 145 09/30/19 19:30 139 29 100/64 (76) 93 09/30/19 19:13 142 30 100 09/30/19 19:00 100/49 09/30/19 19:00 140 28 88/56 (67) 94 09/30/19 18:37 70/52 09/30/19 18:30 140 29 70/52 (58) 91 09/30/19 18:00 70/52 09/30/19 18:00 147 29 96/59 (71) 94 09/30/19 17:30 151 29 98/47 (64) 94 09/30/19 17:00 151 29 96/56 (69) 94 09/30/19 17:00 98/47 09/30/19 16:50 139 30 100 09/30/19 16:30 152 30 100/52 (68) 95 09/30/19 16:00 Mechanical Ventilator 09/30/19 16:00 95 09/30/19 16:00 98.6 148 30 92/51 (65) 94 09/30/19 16:00 100/52 09/30/19 16:00 160 09/30/19 15:30 153 30 83/59 (67) 93 09/30/19 15:00 147 28 100 09/30/19 15:00 86/65 09/30/19 15:00 157 30 78/54 (62) 92 09/30/19 14:30 155 30 90/52 (65) 92 09/30/19 14:00 90/52 09/30/19 14:00 156 31 95/64 (74) 92 Height (Feet): 5 Height (Inches): 8.00 Weight (Pounds): 113 HEENT: other - orally intubated Respiratory/Chest: decreased breath sounds, other - on ventilator Cardiovascular: tachycardia, other - left femoral line Abdomen: soft, non tender Extremities: other - mild hands edema Neurologic/Psychiatric: unresponsiveness Microbiology Date/Time Source Procedure Growth Status 09/29/19 14:25 Blood Blood Culture - Preliminary Staphylococcus Aureus Resulted 09/28/19 20:30 Blood Blood Culture - Preliminary Staphylococcus Aureus Resulted 09/28/19 20:50 Sputum Induced Gram Stain - Final Complete 09/28/19 20:50 Sputum Culture - Final Staphylococcus Aureus - Mrsa Complete 09/29/19 21:30 Urine,Clean Catch Urine Culture - Preliminary Gram Negative Bacillus 1 Resulted Laboratory Tests Test 09/30/19 14:20 09/30/19 18:00 10/01/19 00:20 10/01/19 04:00 Lactic Acid Level 4.50 mmol/L (0.4-2.0) H 4.40 mmol/L (0.66-2.22) H 3.70 mmol/L (0.4-2.0) H 3.70 mmol/L (0.66-2.22) H White Blood Count 35.1 K/UL (4.8-10.8) *H Red Blood Count 2.25 M/UL (4.70-6.10) L Hemoglobin 7.7 G/DL (14.2-18.0) L Hematocrit 23.1 % (42.0-52.0) L Mean Corpuscular Volume 103 FL (80-99) H Mean Corpuscular Hemoglobin 34.1 PG (27.0-31.0) H Mean Corpuscular Hemoglobin Concent 33.2 G/DL (32.0-36.0) Red Cell Distribution Width 14.0 % (11.6-14.8) Platelet Count 48 K/UL (150-450) L Mean Platelet Volume 7.1 FL (6.5-10.1) Neutrophils (%) (Auto) % (45.0-75.0) Lymphocytes (%) (Auto) % (20.0-45.0) Monocytes (%) (Auto) % (1.0-10.0) Eosinophils (%) (Auto) % (0.0-3.0) Basophils (%) (Auto) % (0.0-2.0) Differential Total Cells Counted 100 Neutrophils % (Manual) 80 % (45-75) H Lymphocytes % (Manual) 1 % (20-45) L Monocytes % (Manual) 2 % (1-10) Eosinophils % (Manual) 0 % (0-3) Basophils % (Manual) 0 % (0-2) Metamyelocytes % 2 % (0-0) H Band Neutrophils 15 % (0-8) H Platelet Estimate Decreased L Platelet Morphology Normal Hypochromasia 1+ Anisocytosis 1+ Macrocytosis 1+ Sodium Level 127 MMOL/L (136-145) L Potassium Level 4.4 MMOL/L (3.5-5.1) Chloride Level 91 MMOL/L (98-107) L Carbon Dioxide Level 28 MMOL/L (21-32) Anion Gap 8 mmol/L (5-15) Blood Urea Nitrogen 70 mg/dL (7-18) H Creatinine 2.6 MG/DL (0.55-1.30) H Estimat Glomerular Filtration Rate 25.3 mL/min (>60) Glucose Level 153 MG/DL (74-106) H Calcium Level 6.6 MG/DL (8.5-10.1) L Total Bilirubin 2.6 MG/DL (0.2-1.0) H Direct Bilirubin 2.0 MG/DL (0.0-0.3) H Aspartate Amino Transf (AST/SGOT) 73 U/L (15-37) H Alanine Aminotransferase (ALT/SGPT) 45 U/L (12-78) Alkaline Phosphatase 80 U/L (46-116) Total Protein 5.7 G/DL (6.4-8.2) L Albumin 1.6 G/DL (3.4-5.0) L Globulin 4.1 g/dL Albumin/Globulin Ratio 0.4 (1.0-2.7) L Test 10/01/19 09:02 Lactic Acid Level 3.20 mmol/L (0.4-2.0) H Current Medications Medications (Trade) Dose Ordered Sig/Akash Route PRN Reason Start Time Stop Time Status Last Admin Dose Admin Acetaminophen (Tylenol) 650 mg Q6H PRN NG FEVER 09/30/19 10:30 10/30/19 10:29 Amiodarone HCl 900 mg/Dextrose 500 ml @ 0 mls/hr Q24H IV 10/01/19 12:45 10/02/19 12:44 10/01/19 12:56 Cefepime HCl 2 gm/ Dextrose 55 ml @ 110 mls/hr Q24H IVPB 09/29/19 15:00 10/06/19 14:59 09/30/19 15:00 Chlorhexidine Gluconate (Tammy-Hex 2%) 1 applic DAILY@2000 TOPIC 09/28/19 20:00 10/28/19 19:59 09/30/19 20:09 Diphenhydramine HCl (Benadryl) 25 mg Q6H PRN ORAL Itching 09/28/19 13:25 10/28/19 13:24 09/29/19 10:09 Fentanyl Citrate 1000 mcg/Sodium Chloride 100 ml @ 0 mls/hr Q24H IV 09/29/19 12:57 10/05/19 12:56 09/28/19 14:08 Hydrocortisone (Solu-CORTEF) 100 mg Q6H IV 09/29/19 08:30 10/29/19 08:29 10/01/19 08:09 Linezolid 300 ml @ 300 mls/hr Q12H IVPB 09/29/19 14:00 10/06/19 13:59 09/30/19 14:00 Lorazepam (Ativan 2mg/ml 1ml) 1 mg Q4H PRN IV For Anxiety 09/28/19 13:25 10/05/19 13:24 Multivitamins (Multivitamins) 1 tab DAILY ORAL 09/29/19 09:00 10/22/19 08:59 10/01/19 08:09 Nicotine (Nicoderm) 1 patch Q24H TDERMAL 09/29/19 01:00 10/29/19 00:59 09/30/19 01:18 Norepinephrine Bitartrate 8 mg/ Dextrose 558 ml @ 0 mls/hr Q24H IV 09/28/19 23:00 10/28/19 22:59 10/01/19 05:56 Pantoprazole (Protonix) 40 mg ACBREAKFAST ORAL 09/29/19 06:30 10/22/19 08:59 10/01/19 05:55 Thiamine HCl (Vitamin B1) 100 mg DAILY ORAL 09/29/19 09:00 10/22/19 08:59 10/01/19 08:09 Jamie Swanson MD Oct 01, 2019 13:48
--- NOTE | 2019-10-01 13:52 | NUR ---
NURSE NOTES: Completed 1 pRBC blood transfusion. No adverse reaction noted. VSS. Will continue to plan of care.
--- NOTE | 2019-10-01 14:35 | NUR ---
*-* INSURANCE *-* ALL AVAILABLE CLINICALS AND REVIEWS HAVE BEEN FAXED TO: [facility]: DEEPAK P- [phone] F- [phone]...........REVIEW/CLINICAL
[2019-10-01] MEDS: Cefepime HCl 2 GM in D5W 55 ML IVPB SCH (14:46)
--- NOTE | 2019-10-01 16:02 | NUR ---
NURSE NOTES: Bed bath, oral care given. Repositioned patient. Still on levophed 8mcg/min and Amiodarone 0.5mg/min. SR 80 on the monitor. Will continue plan of care.
--- NOTE | 2019-10-01 18:02 | NUR ---
NURSE NOTES: Repositioned patient. No change in condition. Vent setting on AC 14, VT 480, Peep 5 and FiO2 80%. Kept dry, clean and comfortable. Will continue plan of care.
--- NOTE | 2019-10-01 19:25 | NUR ---
HAND-OFF: Report given to REINALDO Narvaez. Endorsed plan of care.
--- NOTE | 2019-10-01 19:30 | NUR ---
NURSE NOTES: Received pt lethargic , orally intubated on ac mode , SR on the monitor, Bp labile but supported with Levophed drip at 8mcg/min, on amiodarone drip at 0.5mg/min infusing to left femoral site. Pt is NPO at this time, oral care done. Pt has sacral DTI covered with optifoam dry and intact. extremities are swollen and elevated with pillows. Will continue to monitor.
[2019-10-01] MEDS: Dyna-Hex 2% Top Sol 2oz TOPIC SCH (20:21)
--- NOTE | 2019-10-01 21:30 | NUR ---
NURSE NOTES: Bilateral soft wrist restraints on maintained for safety to avoid self extubation.
--- NOTE | 2019-10-01 23:00 | NUR ---
NURSE NOTES: Pts on NSR , still on amiodarone drip at 0.5mg/min, and Levophed drip at 6mg/min. Will continue to monitor.
--- NOTE | 2019-10-01 23:45 | Progress Note ---
DATE: 10/01/2019 SUBJECTIVE: The patient remains in the intensive care unit on full ventilator support, pressors, and stress dose steroids. He has required emergent packed red blood cell transfusion. He remains critical and guarded. PHYSICAL EXAMINATION: VITAL SIGNS: Blood pressure 107/51, , respiratory rate 24, and afebrile. LUNGS: Coarse breath sounds. CARDIAC: Regular rhythm. Rapid rate. Normal S1 and S2. ABDOMEN: Soft. EXTREMITIES: No edema. LABORATORY DATA: White count 35 and hemoglobin 7.7. Lactic acid 3.3. Sodium 127, BUN 70, creatinine 2.6, and potassium 4.4. IMPRESSION: 1. Sepsis with shock. 2. Respiratory failure. 3. Paroxysmal supraventricular tachyarrhythmias. 4. Lactic acidosis. 5. Hyponatremia. 6. Acute on chronic renal failure. 7. Severe protein-calorie malnutrition. 8. Hypoxia. 9. Taper pressors as able. 10. Ventilator support. 11. IV amiodarone for now. 12. Broad-spectrum antimicrobials. 13. Stress dose steroid. Ar Gomez M.D. DR: SAMM JOB#: [id number] CC:
[2019-10-02] VITALS (43 sets, daily range): BP systolic 85–121; BP diastolic 44–59
--- NOTE | 2019-10-02 01:00 | NUR ---
NURSE NOTES: Complete bed bath with bed changed was done.
[2019-10-02] MEDS: Hydrocortisone 100mg Inj IV SCH ×3 (02:18→21:59)
--- NOTE | 2019-10-02 03:00 | NUR ---
NURSE NOTES: Unable to lower Levophed drip at this time . SBP dropped to 80s.
--- NOTE | 2019-10-02 05:00 | NUR ---
NURSE NOTES: Both arms still wheeping with fluids. Elevated affected arms with pillows, Sacral drsg was changed.
[2019-10-02 05:41] LABS: HEMATOCRIT 25.2 % (42.0-52.0); HEMOGLOBIN 8.9 G/DL (14.2-18.0); MEAN CORPUSCULAR VOLUME 98 FL (80-99); PLATELET COUNT 25 K/UL (150-450); RED BLOOD COUNT 2.58 M/UL (4.70-6.10); RED CELL DISTRIBUTION WIDTH 15.1 % (11.6-14.8)
[2019-10-02 05:56] LABS: WHITE BLOOD COUNT 28.1 K/UL (4.8-10.8)
[2019-10-02 06:03] LABS: ALANINE AMINOTRANSFERASE 39 U/L (12-78); ALBUMIN 1.6 G/DL (3.4-5.0); ALBUMIN/GLOBULIN RATIO 0.4 (1.0-2.7); ALKALINE PHOSPHATASE 100 U/L (46-116); ANION GAP 8 mmol/L (5-15); ASPARTATE AMINO TRANSFERASE 64 U/L (15-37); BILIRUBIN,TOTAL 2.8 MG/DL (0.2-1.0); BLOOD UREA NITROGEN 83 mg/dL (7-18); CALCIUM 6.9 MG/DL (8.5-10.1); CARBON DIOXIDE 27 MMOL/L (21-32); CHLORIDE 90 MMOL/L (98-107); CREATININE 2.7 MG/DL (0.55-1.30); POTASSIUM 4.9 MMOL/L (3.5-5.1); SODIUM 125 MMOL/L (136-145)
[2019-10-02 06:05] LABS: BILIRUBIN,DIRECT 2.1 MG/DL (0.0-0.3)
--- NOTE | 2019-10-02 07:25 | NUR ---
HAND-OFF: Report given to Ar NAJERA.
--- NOTE | 2019-10-02 08:10 | General Progress Note ---
Assessment/Plan Problem List: (1) AMS (altered mental status) ICD Codes: R41.82 - Altered mental status, unspecified SNOMED: 836143963 (2) Sepsis ICD Codes: A41.9 - Sepsis, unspecified organism SNOMED: 26218317 (3) Shock ICD Codes: R57.9 - Shock, unspecified SNOMED: 13855385 (4) Cirrhosis ICD Codes: K74.60 - Unspecified cirrhosis of liver SNOMED: 43942828 (5) Hypoxia ICD Codes: R09.02 - Hypoxemia SNOMED: 545080803 (6) Respiratory failure, acute ICD Codes: J96.00 - Acute respiratory failure, unspecified whether with hypoxia or hypercapnia SNOMED: 52158018 Qualifiers: Qualified Codes: J96.01 - Acute respiratory failure with hypoxia Status: stable Assessment/Plan: vent support pressors ivf stress dose steroids iv abx transfuse prn critical and guarded poor prognosis Subjective ROS Limited/Unobtainable: Yes Constitutional: Reports: malaise, weakness HEENT: Reports: no symptoms Cardiovascular: Reports: no symptoms Respiratory: Reports: cough, shortness of breath Gastrointestinal/Abdominal: Reports: no symptoms Genitourinary: Reports: no symptoms Neurologic/Psychiatric: Reports: pre-existing deficit Endocrine: Reports: no symptoms Hematologic/Lymphatic: Reports: anemia Allergies: Coded Allergies: PENICILLINS (Verified Allergy, Intermediate, Rash, 09/01/19) Patient stated at this time All Systems: reviewed and negative except above Subjective no change. remains hypotensive on pressors. decreased h/h noted. no reports of bleeding. on levophed Objective Last 24 Hour Vital Signs Date Time Temp Pulse Resp B/P (MAP) Pulse Ox O2 Delivery O2 Flow Rate FiO2 10/02/19 07:29 81 24 80 10/02/19 07:00 108/51 10/02/19 07:00 81 24 113/50 (71) 99 10/02/19 06:30 81 24 105/54 (71) 99 10/02/19 06:00 80 25 109/53 (71) 97 10/02/19 06:00 106/52 10/02/19 05:30 81 26 105/50 (68) 99 10/02/19 05:00 76 23 104/53 (70) 99 10/02/19 05:00 110/54 10/02/19 04:44 76 23 80 10/02/19 04:30 84 27 104/49 (67) 97 10/02/19 04:00 98.2 86 26 98/48 (65) 100 10/02/19 04:00 Mechanical Ventilator 10/02/19 04:00 108/48 10/02/19 04:00 77 10/02/19 04:00 80 10/02/19 03:30 86 25 110/49 (69) 100 10/02/19 03:03 85 25 80 10/02/19 03:00 84 27 111/50 (70) 98 10/02/19 03:00 108/49 10/02/19 02:30 85 28 109/47 (67) 99 10/02/19 02:00 113/47 10/02/19 02:00 84 26 110/49 (69) 100 10/02/19 01:30 83 26 109/50 (69) 100 10/02/19 01:06 86 25 80 10/02/19 01:00 105/50 10/02/19 01:00 84 26 85/49 (61) 100 10/02/19 00:30 85 25 106/48 (67) 100 10/02/19 00:15 85 28 106/50 (68) 100 10/02/19 00:00 80 10/02/19 00:00 106/50 10/02/19 00:00 85 10/02/19 00:00 98.5 86 24 106/50 (68) 100 10/01/19 23:45 85 26 120/52 (74) 99 10/01/19 23:30 85 25 117/53 (74) 99 10/01/19 23:14 87 25 80 10/01/19 23:00 116/56 10/01/19 23:00 86 26 115/52 (73) 99 10/01/19 22:30 86 26 121/54 (76) 99 10/01/19 22:00 117/56 10/01/19 22:00 86 25 121/57 (78) 99 10/01/19 21:30 85 27 124/60 (81) 99 10/01/19 21:10 86 25 80 10/01/19 21:00 128/58 10/01/19 21:00 86 26 120/56 (77) 98 10/01/19 20:30 86 25 124/60 (81) 98 10/01/19 20:00 85 10/01/19 20:00 80 10/01/19 20:00 122/57 10/01/19 20:00 98.9 86 25 128/54 (78) 98 10/01/19 20:00 Mechanical Ventilator 10/01/19 19:30 86 25 128/54 (78) 98 10/01/19 19:12 86 26 80 10/01/19 19:00 86 26 124/54 (77) 98 10/01/19 19:00 124/54 10/01/19 18:30 86 24 123/53 (76) 98 10/01/19 18:00 85 24 133/58 (83) 98 10/01/19 18:00 133/58 10/01/19 17:30 83 21 127/55 (79) 98 10/01/19 17:00 79 21 118/53 (74) 99 10/01/19 17:00 119/52 10/01/19 16:45 84 24 80 10/01/19 16:30 88 30 110/50 (70) 98 10/01/19 16:00 80 10/01/19 16:00 123/58 10/01/19 16:00 Mechanical Ventilator 10/01/19 16:00 86 10/01/19 16:00 97.5 86 23 120/55 (76) 100 10/01/19 15:30 87 25 118/54 (75) 100 10/01/19 15:00 90 28 117/53 (74) 99 10/01/19 15:00 122/54 10/01/19 14:57 86 29 100 10/01/19 14:30 85 26 114/59 (77) 100 10/01/19 14:00 86 28 109/56 (73) 100 10/01/19 14:00 114/54 10/01/19 13:52 97.7 87 26 113/52 (72) 100 10/01/19 13:30 124 24 116/67 (83) 100 10/01/19 13:09 124 24 100 10/01/19 13:00 116/63 10/01/19 13:00 128 23 109/67 (81) 100 10/01/19 12:30 126 25 110/71 (84) 100 10/01/19 12:00 98.0 122 22 97/53 (68) 100 10/01/19 12:00 105/70 10/01/19 12:00 Mechanical Ventilator 10/01/19 12:00 100 10/01/19 12:00 115 10/01/19 11:26 98.0 126 26 113/55 (74) 100 10/01/19 11:15 126 26 113/55 (74) 100 10/01/19 11:11 97.7 127 27 118/61 (80) 100 10/01/19 11:06 135 24 100 10/01/19 11:00 127 27 118/61 (80) 100 10/01/19 11:00 113/55 10/01/19 10:45 129 24 96/66 (76) 98 10/01/19 10:30 129 25 120/69 (86) 100 10/01/19 10:15 127 24 105/57 (73) 100 10/01/19 10:00 105/57 10/01/19 10:00 125 24 110/64 (79) 99 10/01/19 09:30 129 28 111/64 (80) 100 10/01/19 09:29 115 22 100 10/01/19 09:00 123 23 120/62 (81) 99 10/01/19 09:00 117/54 10/01/19 08:30 126 23 105/64 (78) 100 Intake and Output 10/01/19 10/02/19 19:00 07:00 Intake Total 954.17 ml 517.32 ml Output Total 530 ml 520 ml Balance 424.17 ml -2.68 ml IV Total 954.17 ml 517.32 ml Output Urine Total 530 ml 520 ml Laboratory Tests 10/01/19 09:02: Lactic Acid Level 3.20H 10/01/19 20:20: Lactic Acid Level 3.30H 10/01/19 23:07: Lactic Acid Level 3.20H 10/02/19 05:00: Lactic Acid Level 3.60H, White Blood Count 28.1*H, Red Blood Count 2.58L, Hemoglobin 8.9L, Hematocrit 25.2L, Mean Corpuscular Volume 98, Mean Corpuscular Hemoglobin 34.3H, Mean Corpuscular Hemoglobin Concent 35.1, Red Cell Distribution Width 15.1H, Platelet Count 25L, Mean Platelet Volume 10.1, Neutrophils (%) (Auto) , Lymphocytes (%) (Auto) , Monocytes (%) (Auto) , Eosinophils (%) (Auto) , Basophils (%) (Auto) , Neutrophils % (Manual) [Pending] , Lymphocytes % (Manual) [Pending], Platelet Estimate [Pending], Platelet Morphology [Pending], Sodium Level 125L, Potassium Level 4.9, Chloride Level 90L , Carbon Dioxide Level 27, Anion Gap 8, Blood Urea Nitrogen 83H, Creatinine 2.7H , Estimat Glomerular Filtration Rate 24.2, Glucose Level 124H, Calcium Level 6.9L, Total Bilirubin 2.8H, Direct Bilirubin 2.1H, Aspartate Amino Transf (AST/ SGOT) 64H, Alanine Aminotransferase (ALT/SGPT) 39, Alkaline Phosphatase 100, Total Protein 5.9L, Albumin 1.6L, Globulin 4.3, Albumin/Globulin Ratio 0.4L Height (Feet): 5 Height (Inches): 8.00 Weight (Pounds): 129 Objective General Appearance: WD/WN, lethargic. orally intubated Neck: supple Cardiovascular: regular rhythm Respiratory/Chest: lungs td rhonchi Abdomen: normal bowel sounds, non tender. small reducible periumbilical hernia Edema: no edema noted Arm (L), no edema noted Arm (R), no edema noted Leg (L), no edema noted Leg (R), no edema noted Pedal (L), no edema noted Pedal (R), no edema noted Generalized Henry Leavitt MD Oct 02, 2019 08:10
--- NOTE | 2019-10-02 08:30 | NUR ---
NURSE NOTES: Dr. Leavitt updated at the bedside regarding patient remaining NPO due to currently running Levophed and having large residuals, recommended to attempts to start tube feeding once patient can tolerate feeding at the [facility] semi-[facility]ow[facility]. no verbal orders given at this time.
[2019-10-02] MEDS: Thiamine 100mg tab ORAL SCH (08:35)
[2019-10-02] MEDS: D5NS 1,000 ML IV SCH ×2 (08:36→21:37)
--- NOTE | 2019-10-02 09:09 | Pulmonology Progress Note ---
Assessment/Plan Assessment/Plan Impression - MRSA Pneumonia - Persistent leucocytosis - Hypoxic respiratory Failure - CHFpEF - Atrial Fibrillation - Cirrhosis, h/o ETOH Use, ascites s/p Paracentesis - Homeless - Enterobacter UTI s/p rx - Thrombocytopenia - Anasarca - tachycardia - overwhelming sepsis +++ positive cultures PLAN doing poorly currently on vent on hydrocortisone consider bedside bronchoscopy if able once more stable currently unstable and extremely critical remains ill in ICU prognosis remains poor impression, plan, and exam edited and reviewed in detail care discussed with RN Subjective ROS Limited/Unobtainable: Yes Allergies: Coded Allergies: PENICILLINS (Verified Allergy, Intermediate, Rash, 09/01/19) Patient stated at this time Subjective care noted on vent tachycardia resolved on full vent support Objective Last 24 Hour Vital Signs Date Time Temp Pulse Resp B/P (MAP) Pulse Ox O2 Delivery O2 Flow Rate FiO2 10/02/19 08:30 78 25 110/52 (71) 100 10/02/19 08:00 80 10/02/19 07:29 81 24 80 10/02/19 07:00 108/51 10/02/19 07:00 81 24 113/50 (71) 99 10/02/19 06:30 81 24 105/54 (71) 99 10/02/19 06:00 80 25 109/53 (71) 97 10/02/19 06:00 106/52 10/02/19 05:30 81 26 105/50 (68) 99 10/02/19 05:00 76 23 104/53 (70) 99 10/02/19 05:00 110/54 10/02/19 04:44 76 23 80 10/02/19 04:30 84 27 104/49 (67) 97 10/02/19 04:00 98.2 86 26 98/48 (65) 100 10/02/19 04:00 Mechanical Ventilator 10/02/19 04:00 108/48 10/02/19 04:00 77 10/02/19 04:00 80 10/02/19 03:30 86 25 110/49 (69) 100 10/02/19 03:03 85 25 80 10/02/19 03:00 84 27 111/50 (70) 98 10/02/19 03:00 108/49 10/02/19 02:30 85 28 109/47 (67) 99 10/02/19 02:00 113/47 1/18/20 02:00 84 26 110/49 (69) 100 10/02/19 01:30 83 26 109/50 (69) 100 10/02/19 01:06 86 25 80 10/02/19 01:00 105/50 10/02/19 01:00 84 26 85/49 (61) 100 10/02/19 00:30 85 25 106/48 (67) 100 10/02/19 00:15 85 28 106/50 (68) 100 10/02/19 00:00 80 10/02/19 00:00 106/50 10/02/19 00:00 85 10/02/19 00:00 98.5 86 24 106/50 (68) 100 10/01/19 23:45 85 26 120/52 (74) 99 10/01/19 23:30 85 25 117/53 (74) 99 10/01/19 23:14 87 25 80 10/01/19 23:00 116/56 10/01/19 23:00 86 26 115/52 (73) 99 10/01/19 22:30 86 26 121/54 (76) 99 10/01/19 22:00 117/56 10/01/19 22:00 86 25 121/57 (78) 99 10/01/19 21:30 85 27 124/60 (81) 99 10/01/19 21:10 86 25 80 10/01/19 21:00 128/58 10/01/19 21:00 86 26 120/56 (77) 98 10/01/19 20:30 86 25 124/60 (81) 98 10/01/19 20:00 85 10/01/19 20:00 80 10/01/19 20:00 122/57 10/01/19 20:00 98.9 86 25 128/54 (78) 98 10/01/19 20:00 Mechanical Ventilator 10/01/19 19:30 86 25 128/54 (78) 98 10/01/19 19:12 86 26 80 10/01/19 19:00 86 26 124/54 (77) 98 10/01/19 19:00 124/54 10/01/19 18:30 86 24 123/53 (76) 98 10/01/19 18:00 85 24 133/58 (83) 98 10/01/19 18:00 133/58 10/01/19 17:30 83 21 127/55 (79) 98 10/01/19 17:00 79 21 118/53 (74) 99 10/01/19 17:00 119/52 10/01/19 16:45 84 24 80 10/01/19 16:30 88 30 110/50 (70) 98 10/01/19 16:00 80 10/01/19 16:00 123/58 10/01/19 16:00 Mechanical Ventilator 10/01/19 16:00 86 10/01/19 16:00 97.5 86 23 120/55 (76) 100 10/01/19 15:30 87 25 118/54 (75) 100 10/01/19 15:00 90 28 117/53 (74) 99 10/01/19 15:00 122/54 10/01/19 14:57 86 29 100 10/01/19 14:30 85 26 114/59 (77) 100 10/01/19 14:00 86 28 109/56 (73) 100 10/01/19 14:00 114/54 10/01/19 13:52 97.7 87 26 113/52 (72) 100 10/01/19 13:30 124 24 116/67 (83) 100 10/01/19 13:09 124 24 100 10/01/19 13:00 116/63 10/01/19 13:00 128 23 109/67 (81) 100 10/01/19 12:30 126 25 110/71 (84) 100 10/01/19 12:00 98.0 122 22 97/53 (68) 100 10/01/19 12:00 105/70 10/01/19 12:00 Mechanical Ventilator 10/01/19 12:00 100 10/01/19 12:00 115 10/01/19 11:26 98.0 126 26 113/55 (74) 100 10/01/19 11:15 126 26 113/55 (74) 100 10/01/19 11:11 97.7 127 27 118/61 (80) 100 10/01/19 11:06 135 24 100 10/01/19 11:00 127 27 118/61 (80) 100 10/01/19 11:00 113/55 10/01/19 10:45 129 24 96/66 (76) 98 10/01/19 10:30 129 25 120/69 (86) 100 10/01/19 10:15 127 24 105/57 (73) 100 10/01/19 10:00 105/57 10/01/19 10:00 125 24 110/64 (79) 99 10/01/19 09:30 129 28 111/64 (80) 100 10/01/19 09:29 115 22 100 Intake and Output 10/01/19 10/02/19 19:00 07:00 Intake Total 954.17 ml 517.32 ml Output Total 530 ml 520 ml Balance 424.17 ml -2.68 ml IV Total 954.17 ml 517.32 ml Output Urine Total 530 ml 520 ml Objective WDWN NAD coarse breath sounds bilaterally without rhonchi or wheeze [id number] tacy without MRG NABS nontender no HSM some distention no CC some edema nonfocal Microbiology Date/Time Source Procedure Growth Status 09/29/19 14:25 Blood Blood Culture - Final Staphylococcus Aureus - Mrsa Complete 09/29/19 21:30 Urine,Clean Catch Urine Culture - Preliminary Klebsiella Pneumoniae - Mdr Resulted Laboratory Tests 10/01/19 20:20: Lactic Acid Level 3.30H 10/01/19 23:07: Lactic Acid Level 3.20H 10/02/19 05:00: Lactic Acid Level 3.60H, White Blood Count 28.1*H, Red Blood Count 2.58L, Hemoglobin 8.9L, Hematocrit 25.2L, Mean Corpuscular Volume 98, Mean Corpuscular Hemoglobin 34.3H, Mean Corpuscular Hemoglobin Concent 35.1, Red Cell Distribution Width 15.1H, Platelet Count 25L, Mean Platelet Volume 10.1, Neutrophils (%) (Auto) , Lymphocytes (%) (Auto) , Monocytes (%) (Auto) , Eosinophils (%) (Auto) , Basophils (%) (Auto) , Neutrophils % (Manual) [Pending] , Lymphocytes % (Manual) [Pending], Platelet Estimate [Pending], Platelet Morphology [Pending], Sodium Level 125L, Potassium Level 4.9, Chloride Level 90L , Carbon Dioxide Level 27, Anion Gap 8, Blood Urea Nitrogen 83H, Creatinine 2.7H , Estimat Glomerular Filtration Rate 24.2, Glucose Level 124H, Calcium Level 6.9L, Total Bilirubin 2.8H, Direct Bilirubin 2.1H, Aspartate Amino Transf (AST/ SGOT) 64H, Alanine Aminotransferase (ALT/SGPT) 39, Alkaline Phosphatase 100, Total Protein 5.9L, Albumin 1.6L, Globulin 4.3, Albumin/Globulin Ratio 0.4L Current Medications Medications (Trade) Dose Ordered Sig/Akash Route PRN Reason Start Time Stop Time Status Last Admin Dose Admin Acetaminophen (Tylenol) 650 mg Q6H PRN NG FEVER 09/30/19 10:30 10/30/19 10:29 Amiodarone HCl 900 mg/Dextrose 500 ml @ 0 mls/hr Q24H IV 10/01/19 12:45 10/02/19 12:44 10/01/19 12:56 Cefepime HCl 2 gm/ Dextrose 55 ml @ 110 mls/hr Q24H IVPB 09/29/19 15:00 10/06/19 14:59 10/01/19 14:46 Chlorhexidine Gluconate (Tammy-Hex 2%) 1 applic DAILY@2000 TOPIC 09/28/19 20:00 10/28/19 19:59 10/01/19 20:21 Dextrose/Sodium Chloride 1,000 ml @ 75 mls/hr [id number] IV 10/02/19 08:15 11/01/19 08:14 10/02/19 08:36 Diphenhydramine HCl (Benadryl) 25 mg Q6H PRN ORAL Itching 09/28/19 13:25 10/28/19 13:24 09/29/19 10:09 Fentanyl Citrate 1000 mcg/Sodium Chloride 100 ml @ 0 mls/hr Q24H IV 09/29/19 12:57 10/05/19 12:56 09/28/19 14:08 Hydrocortisone (Solu-CORTEF) 100 mg EVERY 8 HOURS IV 10/02/19 14:00 11/01/19 13:59 Linezolid 300 ml @ 300 mls/hr Q12H IVPB 09/29/19 14:00 10/06/19 13:59 10/02/19 01:54 Lorazepam (Ativan 2mg/ml 1ml) 1 mg Q4H PRN IV For Anxiety 09/28/19 13:25 10/05/19 13:24 Multivitamins (Multivitamins) 1 tab DAILY ORAL 09/29/19 09:00 10/22/19 08:59 10/02/19 08:35 Nicotine (Nicoderm) 1 patch Q24H TDERMAL 09/29/19 01:00 10/29/19 00:59 10/02/19 01:19 Norepinephrine Bitartrate 8 mg/ Dextrose 558 ml @ 0 mls/hr Q24H IV 09/28/19 23:00 10/28/19 22:59 10/01/19 05:56 Pantoprazole (Protonix) 40 mg ACBREAKFAST ORAL 09/29/19 06:30 10/22/19 08:59 10/02/19 06:27 Thiamine HCl (Vitamin B1) 100 mg DAILY ORAL 09/29/19 09:00 10/22/19 08:59 10/02/19 08:35 Simon Lopez MD Oct 02, 2019 09:09
--- NOTE | 2019-10-02 10:22 | Infectious Diseases Prog Note ---
Assessment/Plan Assessment/Plan IMPRESSION: 1. MRSA pneumonia, 2. Klebsiella UTI 3. Cirrhosis with ascites. 4. MRSA colonization. 5. Anemia. 6. Thrombocytopenia. 7. Tachycardia 8. Hypercapnic respiratory failure. 9. Leukocytosis, improving 10 Staph aureus, MRSA sepsis 11. acute renal failure 12. septic shock 13. Lactic acidosis 14. Thrombocytopenia RECOMMENDATIONS: Continue Cefepime to Tygacil change Zyvox to Vancomycin Will f/u cultures Poor prognosis Case was D/W pharmacist Subjective ROS Limited/Unobtainable: Yes Constitutional: Denies: fever Cardiovascular: Reports: other - on Levophed Allergies: Coded Allergies: PENICILLINS (Verified Allergy, Intermediate, Rash, 09/01/19) Patient stated at this time Objective Vital Signs Last 24 Hour Vital Signs Date Time Temp Pulse Resp B/P (MAP) Pulse Ox O2 Delivery O2 Flow Rate FiO2 10/02/19 08:30 78 25 110/52 (71) 100 10/02/19 08:00 80 10/02/19 07:29 81 24 80 10/02/19 07:00 108/51 10/02/19 07:00 81 24 113/50 (71) 99 10/02/19 06:30 81 24 105/54 (71) 99 10/02/19 06:00 80 25 109/53 (71) 97 10/02/19 06:00 106/52 10/02/19 05:30 81 26 105/50 (68) 99 10/02/19 05:00 76 23 104/53 (70) 99 10/02/19 05:00 110/54 10/02/19 04:44 76 23 80 10/02/19 04:30 84 27 104/49 (67) 97 10/02/19 04:00 98.2 86 26 98/48 (65) 100 10/02/19 04:00 Mechanical Ventilator 10/02/19 04:00 108/48 10/02/19 04:00 77 10/02/19 04:00 80 10/02/19 03:30 86 25 110/49 (69) 100 10/02/19 03:03 85 25 80 10/02/19 03:00 84 27 111/50 (70) 98 10/02/19 03:00 108/49 10/02/19 02:30 85 28 109/47 (67) 99 10/02/19 02:00 113/47 10/02/19 02:00 84 26 110/49 (69) 100 10/02/19 01:30 83 26 109/50 (69) 100 10/02/19 01:06 86 25 80 10/02/19 01:00 105/50 10/02/19 01:00 84 26 85/49 (61) 100 10/02/19 00:30 85 25 106/48 (67) 100 10/02/19 00:15 85 28 106/50 (68) 100 10/02/19 00:00 80 10/02/19 00:00 106/50 10/02/19 00:00 85 10/02/19 00:00 98.5 86 24 106/50 (68) 100 10/01/19 23:45 85 26 120/52 (74) 99 10/01/19 23:30 85 25 117/53 (74) 99 10/01/19 23:14 87 25 80 10/01/19 23:00 116/56 10/01/19 23:00 86 26 115/52 (73) 99 10/01/19 22:30 86 26 121/54 (76) 99 10/01/19 22:00 117/56 10/01/19 22:00 86 25 121/57 (78) 99 10/01/19 21:30 85 27 124/60 (81) 99 10/01/19 21:10 86 25 80 10/01/19 21:00 128/58 10/01/19 21:00 86 26 120/56 (77) 98 10/01/19 20:30 86 25 124/60 (81) 98 10/01/19 20:00 85 10/01/19 20:00 80 10/01/19 20:00 122/57 10/01/19 20:00 98.9 86 25 128/54 (78) 98 10/01/19 20:00 Mechanical Ventilator 10/01/19 19:30 86 25 128/54 (78) 98 10/01/19 19:12 86 26 80 10/01/19 19:00 86 26 124/54 (77) 98 10/01/19 19:00 124/54 10/01/19 18:30 86 24 123/53 (76) 98 10/01/19 18:00 85 24 133/58 (83) 98 10/01/19 18:00 133/58 10/01/19 17:30 83 21 127/55 (79) 98 10/01/19 17:00 79 21 118/53 (74) 99 10/01/19 17:00 119/52 10/01/19 16:45 84 24 80 10/01/19 16:30 88 30 110/50 (70) 98 10/01/19 16:00 80 10/01/19 16:00 123/58 10/01/19 16:00 Mechanical Ventilator 10/01/19 16:00 86 10/01/19 16:00 97.5 86 23 120/55 (76) 100 10/01/19 15:30 87 25 118/54 (75) 100 10/01/19 15:00 90 28 117/53 (74) 99 10/01/19 15:00 122/54 10/01/19 14:57 86 29 100 10/01/19 14:30 85 26 114/59 (77) 100 10/01/19 14:00 86 28 109/56 (73) 100 10/01/19 14:00 114/54 10/01/19 13:52 97.7 87 26 113/52 (72) 100 10/01/19 13:30 124 24 116/67 (83) 100 10/01/19 13:09 124 24 100 10/01/19 13:00 116/63 10/01/19 13:00 128 23 109/67 (81) 100 10/01/19 12:30 126 25 110/71 (84) 100 10/01/19 12:00 98.0 122 22 97/53 (68) 100 10/01/19 12:00 105/70 10/01/19 12:00 Mechanical Ventilator 10/01/19 12:00 100 10/01/19 12:00 115 10/01/19 11:26 98.0 126 26 113/55 (74) 100 10/01/19 11:15 126 26 113/55 (74) 100 10/01/19 11:11 97.7 127 27 118/61 (80) 100 10/01/19 11:06 135 24 100 10/01/19 11:00 127 27 118/61 (80) 100 10/01/19 11:00 113/55 10/01/19 10:45 129 24 96/66 (76) 98 10/01/19 10:30 129 25 120/69 (86) 100 Height (Feet): 5 Height (Inches): 8.00 Weight (Pounds): 129 HEENT: other - orally intubated Respiratory/Chest: lungs clear, other - on ventilator Cardiovascular: normal rate, other - left femoral central line Abdomen: soft, non tender, other - Orogastric tube Extremities: other - arms edema Neurologic/Psychiatric: unresponsiveness Microbiology Date/Time Source Procedure Growth Status 09/29/19 14:25 Blood Blood Culture - Final Staphylococcus Aureus - Mrsa Complete 09/29/19 21:30 Urine,Clean Catch Urine Culture - Preliminary Klebsiella Pneumoniae - Mdr Resulted Laboratory Tests Test 10/01/19 20:20 10/01/19 23:07 10/02/19 05:00 10/02/19 08:45 Lactic Acid Level 3.30 mmol/L (0.4-2.0) H 3.20 mmol/L (0.66-2.22) H 3.60 mmol/L (0.4-2.0) H 3.50 mmol/L (0.66-2.22) H White Blood Count 28.1 K/UL (4.8-10.8) *H Red Blood Count 2.58 M/UL (4.70-6.10) L Hemoglobin 8.9 G/DL (14.2-18.0) L Hematocrit 25.2 % (42.0-52.0) L Mean Corpuscular Volume 98 FL (80-99) Mean Corpuscular Hemoglobin 34.3 PG (27.0-31.0) H Mean Corpuscular Hemoglobin Concent 35.1 G/DL (32.0-36.0) Red Cell Distribution Width 15.1 % (11.6-14.8) H Platelet Count 25 K/UL (150-450) L Mean Platelet Volume 10.1 FL (6.5-10.1) Neutrophils (%) (Auto) % (45.0-75.0) Lymphocytes (%) (Auto) % (20.0-45.0) Monocytes (%) (Auto) % (1.0-10.0) Eosinophils (%) (Auto) % (0.0-3.0) Basophils (%) (Auto) % (0.0-2.0) Neutrophils % (Manual) Pending Lymphocytes % (Manual) Pending Platelet Estimate Pending Platelet Morphology Pending Sodium Level 125 MMOL/L (136-145) L Potassium Level 4.9 MMOL/L (3.5-5.1) Chloride Level 90 MMOL/L (98-107) L Carbon Dioxide Level 27 MMOL/L (21-32) Anion Gap 8 mmol/L (5-15) Blood Urea Nitrogen 83 mg/dL (7-18) H Creatinine 2.7 MG/DL (0.55-1.30) H Estimat Glomerular Filtration Rate 24.2 mL/min (>60) Glucose Level 124 MG/DL (74-106) H Calcium Level 6.9 MG/DL (8.5-10.1) L Total Bilirubin 2.8 MG/DL (0.2-1.0) H Direct Bilirubin 2.1 MG/DL (0.0-0.3) H Aspartate Amino Transf (AST/SGOT) 64 U/L (15-37) H Alanine Aminotransferase (ALT/SGPT) 39 U/L (12-78) Alkaline Phosphatase 100 U/L (46-116) Total Protein 5.9 G/DL (6.4-8.2) L Albumin 1.6 G/DL (3.4-5.0) L Globulin 4.3 g/dL Albumin/Globulin Ratio 0.4 (1.0-2.7) L Current Medications Medications (Trade) Dose Ordered Sig/Akash Route PRN Reason Start Time Stop Time Status Last Admin Dose Admin Acetaminophen (Tylenol) 650 mg Q6H PRN NG FEVER 09/30/19 10:30 10/30/19 10:29 Amiodarone HCl 900 mg/Dextrose 500 ml @ 0 mls/hr Q24H IV 10/01/19 12:45 10/02/19 12:44 10/01/19 12:56 Cefepime HCl 2 gm/ Dextrose 55 ml @ 110 mls/hr Q24H IVPB 09/29/19 15:00 10/06/19 14:59 10/01/19 14:46 Chlorhexidine Gluconate (Tammy-Hex 2%) 1 applic DAILY@2000 TOPIC 09/28/19 20:00 10/28/19 19:59 10/01/19 20:21 Dextrose/Sodium Chloride 1,000 ml @ 75 mls/hr [id number] IV 10/02/19 08:15 11/01/19 08:14 10/02/19 08:36 Diphenhydramine HCl (Benadryl) 25 mg Q6H PRN ORAL Itching 09/28/19 13:25 10/28/19 13:24 09/29/19 10:09 Fentanyl Citrate 1000 mcg/Sodium Chloride 100 ml @ 0 mls/hr Q24H IV 09/29/19 12:57 10/05/19 12:56 09/28/19 14:08 Hydrocortisone (Solu-CORTEF) 100 mg EVERY 8 HOURS IV 10/02/19 14:00 11/01/19 13:59 Linezolid 300 ml @ 300 mls/hr Q12H IVPB 09/29/19 14:00 10/06/19 13:59 10/02/19 01:54 Lorazepam (Ativan 2mg/ml 1ml) 1 mg Q4H PRN IV For Anxiety 09/28/19 13:25 10/05/19 13:24 Multivitamins (Multivitamins) 1 tab DAILY ORAL 09/29/19 09:00 10/22/19 08:59 10/02/19 08:35 Nicotine (Nicoderm) 1 patch Q24H TDERMAL 09/29/19 01:00 10/29/19 00:59 10/02/19 01:19 Norepinephrine Bitartrate 8 mg/ Dextrose 558 ml @ 0 mls/hr Q24H IV 09/28/19 23:00 10/28/19 22:59 10/01/19 05:56 Pantoprazole (Protonix) 40 mg ACBREAKFAST ORAL 09/29/19 06:30 10/22/19 08:59 10/02/19 06:27 Thiamine HCl (Vitamin B1) 100 mg DAILY ORAL 09/29/19 09:00 10/22/19 08:59 10/02/19 08:35 Jamie Swanson MD Oct 02, 2019 10:22
--- NOTE | 2019-10-02 11:00 | NUR ---
NURSE NOTES: Dr. Swanson update of microbiology results of MDR urine, no verbal orders given at this time, will review chart and order medication as needed.
[2019-10-02] MEDS ORDERED: Tigecycline 100 MG in NS 110 ML IVPB ONE (12:00)
[2019-10-02] MEDS ORDERED: Vancomycin 1.25gm/NS Premix IVPB ONE (12:00)
[2019-10-02] MEDS ORDERED: Vancomycin 1gm/D5W 275ml IVPB SCH ×2 (12:00)
--- NOTE | 2019-10-02 12:30 | NUR ---
NURSE NOTES: Saline Water flush given through NG-tube due to sodium of 125. D5NS at 75ml/hr ordered.
--- NOTE | 2019-10-02 16:00 | NUR ---
NURSE NOTES: Amiodarone Drip discontinued after obtaining order from Dr. Weeks regarding patient HR returning to Sinus rhythm with no noted arrhythmias, patient remains on Levophed at 2mcg/min infusing through femoral TLC. remains Npo at this time.
--- NOTE | 2019-10-02 17:00 | NUR ---
NURSE NOTES: Levophed drip placed on hold since systemic BP remains above 100. remain NPO at this time. NG-tube remains patent and able to aspirate gastric content.
--- NOTE | 2019-10-02 19:26 | NUR ---
Receibed pt more awake at this time, but still appeared fatigue. Off Amiodarone drip and Levophed drip. Orally intubated on ac mode, Pt with bilateral soft wrist restraints on for safety to avoid self extubation. Stii nPO. OGT clamped.Oral care done. Will continue to monitor.
--- NOTE | 2019-10-02 19:32 | NUR ---
HAND-OFF: Report given to REINALDO Narvaez.
[2019-10-02] MEDS: Dyna-Hex 2% Top Sol 2oz TOPIC SCH (19:58)
[2019-10-02] MEDS: Tigecycline 50 MG in NS 110 ML IVPB SCH (20:44)
--- NOTE | 2019-10-02 21:00 | NUR ---
NURSE NOTES: Picture taken done with pts DTI. sacral area. Appropriate Tx rendered. incident report was done , due to wounds deteriorating condition.
[2019-10-02] MEDS: Norepinephrine Bitartrate 8 MG in D5W 500ml 550 ML IV SCH (23:00)
--- NOTE | 2019-10-02 23:51 | NUR ---
NURSE NOTES: Fdg started to pt Glucerna 1.5 at 10ml/hr. Goal is 20
[2019-10-03] VITALS (28 sets, daily range): BP systolic 83–116; BP diastolic 44–64
--- NOTE | 2019-10-03 | Progress Note ---
DATE: 10/02/2019 CARDIOLOGY PROGRESS NOTE SUBJECTIVE: The patient remains in the intensive care unit. Orally intubated. Mechanically ventilated. Condition is critical. Prognosis is guarded. Episodes of rapid supraventricular tachyarrhythmias and atrial fibrillation. Yesterday, the patient was started on amiodarone drip. He is maintaining sinus tachycardia at this time. PHYSICAL EXAMINATION: VITAL SIGNS: Blood pressure is 85/45 with heart rate 75 and respiratory rate 25. LUNGS: Bilateral breath sounds and rhonchi. CARDIAC: Regular rhythm. Rapid rate. Normal S1 and S2. ABDOMEN: Soft. EXTREMITIES: No edema. LABORATORY DATA: White count 28 and hemoglobin 8.9. Lactic acid . Sodium 125, chloride 90, BUN 83, and creatinine 2.7. Albumin 1.6. IMPRESSION: 1. Respiratory failure. 2. Lactic acidosis. 3. Sepsis with shock. 4. Adrenocortical suppression. 5. Acute renal failure. 6. Hyponatremia. 7. Hypochloremia. 8. Severe protein-calorie malnutrition. 9. Paroxysmal atrial fibrillation and paroxysmal supraventricular tachyarrhythmias, now in sinus rhythm. PLAN: 1. Pressor support. 2. Stress dose steroids. 3. Volume resuscitation. 4. Antimicrobials. 5. Discontinue IV amiodarone. 6. Continue cardiac monitoring. 7. DVT prophylaxis. 8. Antimicrobials per infectious disease merchandising consultant. 9. Taper oxygen as able if clinical condition improves. Ar Gomez M.D. DR: ABBI JOB#: [id number] CC:
--- NOTE | 2019-10-03 01:00 | NUR ---
NURSE NOTES: Ogt fdg was tolerated , increase to 20ml/hr. HOB kept elevated. on aspiration precaution.
--- NOTE | 2019-10-03 03:00 | NUR ---
NURSE NOTComplete bath with bed changed was done. Sacral drsg was changed.
--- NOTE | 2019-10-03 05:00 | NUR ---
NURSE NOTES: More awake at this time.
[2019-10-03] MEDS: Hydrocortisone 100mg Inj IV SCH ×2 (05:55→17:14)
[2019-10-03 06:12] LABS: HEMATOCRIT 25.3 % (42.0-52.0); HEMOGLOBIN 8.7 G/DL (14.2-18.0); MEAN CORPUSCULAR VOLUME 99 FL (80-99); PLATELET COUNT 17 K/UL (150-450); RED BLOOD COUNT 2.55 M/UL (4.70-6.10); RED CELL DISTRIBUTION WIDTH 14.9 % (11.6-14.8)
[2019-10-03 06:17] LABS: WHITE BLOOD COUNT 22.4 K/UL (4.8-10.8)
[2019-10-03 06:45] LABS: ALANINE AMINOTRANSFERASE 35 U/L (12-78); ALBUMIN 1.5 G/DL (3.4-5.0); ALBUMIN/GLOBULIN RATIO 0.3 (1.0-2.7); ALKALINE PHOSPHATASE 104 U/L (46-116); ANION GAP 11 mmol/L (5-15); ASPARTATE AMINO TRANSFERASE 53 U/L (15-37); BILIRUBIN,TOTAL 1.9 MG/DL (0.2-1.0); BLOOD UREA NITROGEN 93 mg/dL (7-18); CALCIUM 6.8 MG/DL (8.5-10.1); CARBON DIOXIDE 23 MMOL/L (21-32); CHLORIDE 93 MMOL/L (98-107); CREATININE 2.7 MG/DL (0.55-1.30); POTASSIUM 4.9 MMOL/L (3.5-5.1); SODIUM 127 MMOL/L (136-145)
[2019-10-03 06:49] LABS: BILIRUBIN,DIRECT 1.4 MG/DL (0.0-0.3)
--- NOTE | 2019-10-03 07:15 | NUR ---
RESPIRATORY NOTE: Patient received mechanically ventilated on PB 840 with current ordered vent settings. Patient is orally intubated with ETT size 7.5 with 24cm at the lip line that is secured with a commercial holster. Vent alarms are functional and audible. There is an ambu bag and a spare trach available at the bedside. The vent is connected to a red outlet. Will continue to monitor.
--- NOTE | 2019-10-03 07:24 | NUR ---
HAND-OFF: Report given to Ar NAJERA.
--- NOTE | 2019-10-03 07:51 | Pulmonology Progress Note ---
Assessment/Plan Assessment/Plan Impression - MRSA Pneumonia - Persistent leucocytosis - Hypoxic respiratory Failure - CHFpEF - Atrial Fibrillation - Cirrhosis, h/o ETOH Use, ascites s/p Paracentesis - Homeless - Enterobacter UTI s/p rx - Thrombocytopenia - Anasarca - tachycardia - overwhelming sepsis +++ positive cultures PLAN stabilized currently on vent on hydrocortisone consider bedside bronchoscopy if able once more stable currently unstable and extremely critical remains ill taper oxygen and monitor CXR and ABG in ICU prognosis remains poor impression, plan, and exam edited and reviewed in detail care discussed with RN Subjective ROS Limited/Unobtainable: Yes Allergies: Coded Allergies: PENICILLINS (Verified Allergy, Intermediate, Rash, 09/01/19) Patient stated at this time Subjective care noted on vent tachycardia resolved on full vent support O2 sats improved Objective Last 24 Hour Vital Signs Date Time Temp Pulse Resp B/P (MAP) Pulse Ox O2 Delivery O2 Flow Rate FiO2 10/03/19 06:00 65 23 107/52 (70) 100 10/03/19 05:00 76 22 92/58 (69) 100 10/03/19 04:57 79 23 80 10/03/19 04:00 71 10/03/19 04:00 Mechanical Ventilator 10/03/19 04:00 99.0 70 19 89/47 (61) 99 10/03/19 04:00 80 10/03/19 03:00 73 18 92/45 (61) 100 10/03/19 02:50 72 18 80 10/03/19 02:00 81 26 97/49 (65) 99 10/03/19 01:10 78 23 80 10/03/19 01:00 78 24 100/50 (67) 100 10/03/19 00:00 99.2 77 24 99/50 (66) 100 10/03/19 00:00 77 10/03/19 00:00 Mechanical Ventilator 10/02/19 23:00 76 25 95/48 (64) 100 10/02/19 23:00 102/51 10/02/19 22:55 76 25 80 10/02/19 22:41 75 22 98/51 (67) 100 10/02/19 22:00 75 25 85/45 (58) 100 10/02/19 21:18 79 24 80 10/02/19 21:00 80 25 107/54 (71) 100 10/02/19 20:00 79 24 107/55 (72) 100 10/02/19 20:00 80 10/02/19 20:00 99.0 80 26 106/55 (72) 100 10/02/19 20:00 Mechanical Ventilator 10/02/19 20:00 79 10/02/19 19:21 77 25 80 10/02/19 18:00 80 26 106/55 (72) 100 10/02/19 17:30 79 25 101/57 (72) 100 10/02/19 17:21 79 16 80 10/02/19 17:00 79 25 112/57 (75) 100 10/02/19 16:45 80 10/02/19 16:30 80 25 110/55 (73) 100 10/02/19 16:00 Mechanical Ventilator 10/02/19 16:00 81 10/02/19 16:00 97.3 81 24 111/54 (73) 100 10/02/19 15:30 80 24 111/56 (74) 100 10/02/19 15:30 111/55 10/02/19 15:15 79 24 80 10/02/19 15:00 78 24 118/55 (76) 100 10/02/19 14:30 77 24 117/58 (77) 100 10/02/19 14:00 75 26 121/59 (79) 99 10/02/19 13:30 75 23 92/44 (60) 99 10/02/19 13:02 79 26 80 10/02/19 13:00 76 24 100/44 (62) 99 10/02/19 12:30 107/48 10/02/19 12:30 79 27 107/48 (67) 99 10/02/19 12:00 82 10/02/19 12:00 80 10/02/19 12:00 Mechanical Ventilator 10/02/19 12:00 97.5 81 28 108/46 (66) 99 10/02/19 11:30 81 27 112/56 (74) 100 10/02/19 11:00 79 25 107/48 (67) 100 10/02/19 10:58 78 24 80 10/02/19 10:30 79 25 115/58 (77) 100 10/02/19 10:00 80 25 113/54 (73) 100 10/02/19 09:30 79 23 110/56 (74) 100 10/02/19 09:30 76 23 80 10/02/19 09:00 77 24 107/55 (72) 100 10/02/19 08:30 78 25 110/52 (71) 100 10/02/19 08:00 97.9 79 25 108/53 (71) 99 10/02/19 08:00 80 10/02/19 08:00 80 10/02/19 08:00 Mechanical Ventilator Intake and Output 10/02/19 10/03/19 19:00 07:00 Intake Total 1678.098 ml 1095 ml Output Total 500 ml 530 ml Balance 1178.098 ml 565 ml Free Water 120 ml 30 ml IV Total 1538.098 ml 935 ml Tube Feeding 130 ml Other 20 ml Output Urine Total 500 ml 530 ml Objective WDWN NAD coarse breath sounds bilaterally without rhonchi or wheeze [id number] without MRG NABS nontender no HSM some distention no CC some edema nonfocal sedated Laboratory Tests 10/02/19 08:45: Lactic Acid Level 3.50H 10/02/19 19:55: Lactic Acid Level 3.30H 10/02/19 23:21: Lactic Acid Level 3.40H 10/03/19 05:35: Lactic Acid Level 3.70H, White Blood Count 22.4*H, Red Blood Count 2.55L, Hemoglobin 8.7L, Hematocrit 25.3L, Mean Corpuscular Volume 99, Mean Corpuscular Hemoglobin 34.0H, Mean Corpuscular Hemoglobin Concent 34.2, Red Cell Distribution Width 14.9H, Platelet Count 17L, Mean Platelet Volume 13.4H, Neutrophils (%) (Auto) , Lymphocytes (%) (Auto) , Monocytes (%) (Auto) , Eosinophils (%) (Auto) , Basophils (%) (Auto) , Neutrophils % (Manual) [Pending] , Lymphocytes % (Manual) [Pending], Platelet Estimate [Pending], Platelet Morphology [Pending], Sodium Level 127L, Potassium Level 4.9, Chloride Level 93L , Carbon Dioxide Level 23, Anion Gap 11, Blood Urea Nitrogen 93H, Creatinine 2.7H, Estimat Glomerular Filtration Rate 24.2, Glucose Level 108H, Calcium Level 6.8L, Total Bilirubin 1.9H, Direct Bilirubin 1.4H, Aspartate Amino Transf (AST/SGOT) 53H, Alanine Aminotransferase (ALT/SGPT) 35, Alkaline Phosphatase 104 , Total Protein 5.9L, Albumin 1.5L, Globulin 4.4, Albumin/Globulin Ratio 0.3L Current Medications Medications (Trade) Dose Ordered Sig/Akash Route PRN Reason Start Time Stop Time Status Last Admin Dose Admin Acetaminophen (Tylenol) 650 mg Q6H PRN NG FEVER 09/30/19 10:30 10/30/19 10:29 Chlorhexidine Gluconate (Tammy-Hex 2%) 1 applic DAILY@2000 TOPIC 09/28/19 20:00 10/28/19 19:59 10/02/19 19:58 Dextrose/Sodium Chloride 1,000 ml @ 75 mls/hr [id number] IV 10/02/19 08:15 11/01/19 08:14 10/02/19 21:37 Diphenhydramine HCl (Benadryl) 25 mg Q6H PRN ORAL Itching 09/28/19 13:25 10/28/19 13:24 09/29/19 10:09 Fentanyl Citrate 1000 mcg/Sodium Chloride 100 ml @ 0 mls/hr Q24H IV 09/29/19 12:57 10/05/19 12:56 09/28/19 14:08 Hydrocortisone (Solu-CORTEF) 100 mg EVERY 8 HOURS IV 10/02/19 14:00 11/01/19 13:59 10/03/19 05:55 Lorazepam (Ativan 2mg/ml 1ml) 1 mg Q4H PRN IV For Anxiety 09/28/19 13:25 10/05/19 13:24 Multivitamins (Multivitamins) 1 tab DAILY ORAL 09/29/19 09:00 10/22/19 08:59 10/02/19 08:35 Nicotine (Nicoderm) 1 patch Q24H TDERMAL 09/29/19 01:00 10/29/19 00:59 10/03/19 02:36 Norepinephrine Bitartrate 8 mg/ Dextrose 558 ml @ 0 mls/hr Q24H IV 09/28/19 23:00 10/28/19 22:59 10/01/19 05:56 Pantoprazole (Protonix) 40 mg ACBREAKFAST ORAL 09/29/19 06:30 10/22/19 08:59 10/03/19 06:11 Thiamine HCl (Vitamin B1) 100 mg DAILY ORAL 09/29/19 09:00 10/22/19 08:59 10/02/19 08:35 Tigecycline 50 mg/ Sodium Chloride 110 ml @ 220 mls/hr EVERY 12 HOURS IVPB 10/02/19 21:00 10/09/19 20:59 10/02/19 20:44 Vancomycin HCl (Vanco rx to dose) 1 ea DAILY PRN MISC Per rx protocol 10/02/19 10:30 11/01/19 10:29 Simon Lopez MD Oct 03, 2019 07:51
--- NOTE | 2019-10-03 08:06 | NUR ---
NURSE NOTES: Addendum: 10/03/19 at 0838 by Ar Bonilla RN Dr. Leavitt made aware of patient NA level of 127 with no verbal orders given at this time, tube feeding remains running at 20 ml/hr with Glucerna at 1.5.
--- NOTE | 2019-10-03 08:15 | NUR ---
-%NURSE NOTES: % Dr palomares at the bedside and updated on patient progress, remains off levophed with Bp of 116/55 and amiodarone with Hr at 86 and remains in sinus rhythm, wants the FIo2 to be titrated to maintain a saturation level of greater than 92%. RT informed and FIO2 changed to 60% and saturations remains at 95-96%.
--- NOTE | 2019-10-03 08:24 | General Progress Note ---
Assessment/Plan Problem List: (1) AMS (altered mental status) ICD Codes: R41.82 - Altered mental status, unspecified SNOMED: 206646074 (2) Sepsis ICD Codes: A41.9 - Sepsis, unspecified organism SNOMED: 19573895 (3) Shock ICD Codes: R57.9 - Shock, unspecified SNOMED: 09215760 (4) Cirrhosis ICD Codes: K74.60 - Unspecified cirrhosis of liver SNOMED: 17578850 (5) Hypoxia ICD Codes: R09.02 - Hypoxemia SNOMED: 554229527 (6) Respiratory failure, acute ICD Codes: J96.00 - Acute respiratory failure, unspecified whether with hypoxia or hypercapnia SNOMED: 70867481 Qualifiers: Qualified Codes: J96.01 - Acute respiratory failure with hypoxia Status: stable Assessment/Plan: vent support pressors ivf nacl tabs stress dose steroids iv abx transfuse prn critical and guarded poor prognosis Subjective ROS Limited/Unobtainable: No Constitutional: Reports: malaise, weakness HEENT: Reports: no symptoms Cardiovascular: Reports: no symptoms Respiratory: Reports: shortness of breath Gastrointestinal/Abdominal: Reports: no symptoms Genitourinary: Reports: no symptoms Neurologic/Psychiatric: Reports: anxiety, emotional problems Endocrine: Reports: no symptoms Hematologic/Lymphatic: Reports: anemia Allergies: Coded Allergies: PENICILLINS (Verified Allergy, Intermediate, Rash, 09/01/19) Patient stated at this time All Systems: reviewed and negative except above Subjective improved. off pressors. remains on the vent. resting. Objective Last 24 Hour Vital Signs Date Time Temp Pulse Resp B/P (MAP) Pulse Ox O2 Delivery O2 Flow Rate FiO2 10/03/19 08:00 80 10/03/19 07:10 63 25 80 10/03/19 06:00 65 23 107/52 (70) 100 10/03/19 05:00 76 22 92/58 (69) 100 10/03/19 04:57 79 23 80 10/03/19 04:00 71 10/03/19 04:00 Mechanical Ventilator 10/03/19 04:00 99.0 70 19 89/47 (61) 99 10/03/19 04:00 80 10/03/19 03:00 73 18 92/45 (61) 100 10/03/19 02:50 72 18 80 10/03/19 02:00 81 26 97/49 (65) 99 10/03/19 01:10 78 23 80 10/03/19 01:00 78 24 100/50 (67) 100 10/03/19 00:00 99.2 77 24 99/50 (66) 100 10/03/19 00:00 77 10/03/19 00:00 Mechanical Ventilator 10/02/19 23:00 76 25 95/48 (64) 100 10/02/19 23:00 102/51 10/02/19 22:55 76 25 80 10/02/19 22:41 75 22 98/51 (67) 100 10/02/19 22:00 75 25 85/45 (58) 100 10/02/19 21:18 79 24 80 10/02/19 21:00 80 25 107/54 (71) 100 10/02/19 20:00 79 24 107/55 (72) 100 10/02/19 20:00 80 10/02/19 20:00 99.0 80 26 106/55 (72) 100 10/02/19 20:00 Mechanical Ventilator 10/02/19 20:00 79 10/02/19 19:21 77 25 80 10/02/19 18:00 80 26 106/55 (72) 100 10/02/19 17:30 79 25 101/57 (72) 100 10/02/19 17:21 79 16 80 10/02/19 17:00 79 25 112/57 (75) 100 10/02/19 16:45 80 10/02/19 16:30 80 25 110/55 (73) 100 10/02/19 16:00 Mechanical Ventilator 10/02/19 16:00 81 10/02/19 16:00 97.3 81 24 111/54 (73) 100 10/02/19 15:30 80 24 111/56 (74) 100 10/02/19 15:30 111/55 10/02/19 15:15 79 24 80 10/02/19 15:00 78 24 118/55 (76) 100 10/02/19 14:30 77 24 117/58 (77) 100 10/02/19 14:00 75 26 121/59 (79) 99 10/02/19 13:30 75 23 92/44 (60) 99 1/18/20 13:02 79 26 80 10/02/19 13:00 76 24 100/44 (62) 99 10/02/19 12:30 107/48 10/02/19 12:30 79 27 107/48 (67) 99 10/02/19 12:00 82 10/02/19 12:00 80 10/02/19 12:00 Mechanical Ventilator 10/02/19 12:00 97.5 81 28 108/46 (66) 99 10/02/19 11:30 81 27 112/56 (74) 100 10/02/19 11:00 79 25 107/48 (67) 100 10/02/19 10:58 78 24 80 10/02/19 10:30 79 25 115/58 (77) 100 10/02/19 10:00 80 25 113/54 (73) 100 10/02/19 09:30 79 23 110/56 (74) 100 10/02/19 09:30 76 23 80 10/02/19 09:00 77 24 107/55 (72) 100 10/02/19 08:30 78 25 110/52 (71) 100 Intake and Output 10/02/19 10/03/19 19:00 07:00 Intake Total 1678.098 ml 1095 ml Output Total 500 ml 530 ml Balance 1178.098 ml 565 ml Free Water 120 ml 30 ml IV Total 1538.098 ml 935 ml Tube Feeding 130 ml Other 20 ml Output Urine Total 500 ml 530 ml Laboratory Tests 10/02/19 08:45: Lactic Acid Level 3.50H 10/02/19 19:55: Lactic Acid Level 3.30H 10/02/19 23:21: Lactic Acid Level 3.40H 10/03/19 05:35: Lactic Acid Level 3.70H, White Blood Count 22.4*H, Red Blood Count 2.55L, Hemoglobin 8.7L, Hematocrit 25.3L, Mean Corpuscular Volume 99, Mean Corpuscular Hemoglobin 34.0H, Mean Corpuscular Hemoglobin Concent 34.2, Red Cell Distribution Width 14.9H, Platelet Count 17L, Mean Platelet Volume 13.4H, Neutrophils (%) (Auto) , Lymphocytes (%) (Auto) , Monocytes (%) (Auto) , Eosinophils (%) (Auto) , Basophils (%) (Auto) , Neutrophils % (Manual) [Pending] , Lymphocytes % (Manual) [Pending], Platelet Estimate [Pending], Platelet Morphology [Pending], Sodium Level 127L, Potassium Level 4.9, Chloride Level 93L , Carbon Dioxide Level 23, Anion Gap 11, Blood Urea Nitrogen 93H, Creatinine 2.7H, Estimat Glomerular Filtration Rate 24.2, Glucose Level 108H, Calcium Level 6.8L, Total Bilirubin 1.9H, Direct Bilirubin 1.4H, Aspartate Amino Transf (AST/SGOT) 53H, Alanine Aminotransferase (ALT/SGPT) 35, Alkaline Phosphatase 104 , Total Protein 5.9L, Albumin 1.5L, Globulin 4.4, Albumin/Globulin Ratio 0.3L Height (Feet): 5 Height (Inches): 8.00 Weight (Pounds): 131 Objective General Appearance: WD/WN, lethargic. orally intubated Neck: supple Cardiovascular: regular rhythm Respiratory/Chest: lungs td rhonchi Abdomen: normal bowel sounds, non tender. small reducible periumbilical hernia Edema: no edema noted Arm (L), no edema noted Arm (R), no edema noted Leg (L), no edema noted Leg (R), no edema noted Pedal (L), no edema noted Pedal (R), no edema noted Generalized Henry Leavitt MD Oct 03, 2019 08:24
[2019-10-03] MEDS: D5NS 1,000 ML IV SCH ×2 (09:57→23:19)
[2019-10-03] MEDS: Thiamine 100mg tab ORAL SCH (09:58)
[2019-10-03] MEDS: Tigecycline 50 MG in NS 110 ML IVPB SCH ×2 (09:58→21:31)
[2019-10-03] MEDS: Sodium Chloride 1gm Tab ORAL SCH ×3 (11:50→17:16)
--- NOTE | 2019-10-03 12:00 | NUR ---
NURSE NOTES: Patient remains able to tolerate feeding at 35ml/hr, noted to have a bowel movement, small and soft consistency, condom catheter remains draining clear urine and anchor properly,
[2019-10-03] MEDS ORDERED: D5NS 1000ml IV ONE (13:48)
[2019-10-03] MEDS ORDERED: NS Irrig 1000ml ONE (13:48)
[2019-10-03] MEDS ORDERED: D5W 275ml ONE (13:48)
--- NOTE | 2019-10-03 15:10 | NUR ---
NURSE NOTES: Central Line dressing changed over the Left femoral, central Line insertion site is noted to be clean with no redness or inflammation, tolerated procedure well with no distress noted
--- NOTE | 2019-10-03 18:21 | NUR ---
NURSE NOTES: Dr. Leavitt called to place order for 1 unit of Platelet for a of level of 17. order placed and awaiting for unit to be processed, no active bleeding is noted, stool are brown with no melena noted, Tellez remains with clear urine.
--- NOTE | 2019-10-03 19:16 | NUR ---
NURSE NOTES: Received pt awake orally intubated with vent setting AC 14 tv 480 fi02 50% and peep-5. RR 20s 02 sat 94%. Afib on the monitor rate 120s bp 93/49, afebrile, awaiting of 1 unit plateletpheresis to transfuse. Pt has light maroon brownish soft bowel movement at this time. bilateral soft wrist restraints on for safety to avoid self extubation. Will continue to monitor.
--- NOTE | 2019-10-03 19:37 | NUR ---
HAND-OFF: Report given to REINALDO Solorio.
--- NOTE | 2019-10-03 20:09 | NUR ---
NURSE NOTES: Notify Dr Maria Isabel melvin with pts Afib 120-130s bp 100/56- awaiting for md to call back.
[2019-10-03] MEDS: Dyna-Hex 2% Top Sol 2oz TOPIC SCH (20:19)
--- NOTE | 2019-10-03 20:30 | NUR ---
NURSE NOTES: Place fdg on hold residual 80ml.
--- NOTE | 2019-10-03 21:00 | NUR ---
NURSE NOTES: Spoke to Avelina marcum in blood bank with regards to the plateletpheresis that was ordered. She verbalized thar she followed up with the blood bank
--- NOTE | 2019-10-03 21:01 | NUR ---
NURSE NOTES: A second call was placed to Dr Maria Isabel melvin for pts [id number]
[2019-10-03] MEDS ORDERED: Amiodarone 900 MG in D5W 500ml 482 ML IV SCH (21:15)
--- NOTE | 2019-10-03 21:31 | NUR ---
NURSE NOTES: Amiodarone drip at 0.5mg/min were started due to pts Afib with RVR rate 120-130s per Dr Johnson order.
--- NOTE | 2019-10-03 23:20 | NUR ---
NURSE NOTES: NS 500ml was given due to SBP [address] Johnson order
--- NOTE | 2019-10-03 23:51 | NUR ---
NURSE NOTES: Called Dr Maria Isabel Gomez of pts [id number] inspite of the NS 500ml bolus.
[2019-10-04] VITALS (51 sets, daily range): BP systolic 86–109; BP diastolic 42–59
[2019-10-04] MEDS ORDERED: Digoxin 0.5mg/2ml Inj IVP SCH (00:15)
[2019-10-04] MEDS: Norepinephrine Bitartrate 8 MG in D5W 500ml 550 ML IV SCH (00:30)
[2019-10-04] MEDS ORDERED: Digoxin 0.5mg/2ml Inj IVP PRN (01:15)
--- NOTE | 2019-10-04 01:15 | Progress Note ---
DATE: 10/03/2019 CARDIOLOGY PROGRESS NOTE SUBJECTIVE: Condition has deteriorated. The patient's blood pressure is dropping and his heart rate is increasing again. Monitor atrial fibrillation with rapid ventricular response. LABORATORY DATA: Cultures are positive for KPC in the urine and MRSA in the sputum. OBJECTIVE: VITAL SIGNS: Blood pressure 86/50, pulse 133, respiratory rate 24, temperature 99.2. GENERAL: Orally intubated. LUNGS: Bilateral rhonchi and rales. HEART: Regular rhythm and rate. Normal S1 and S2. ABDOMEN: Soft. EXTREMITIES: No edema. IMPRESSION: 1. Sepsis with shock and respiratory failure. 2. Rapid atrial fibrillation. 3. Adrenocortical insufficiency. 4. Critical and guarded. PLAN: 1. Pressors if fails to respond to fluid challenges. 2. Antimicrobials per ID attending. 3. Ventilator support. 4. Continue intravenous amiodarone. 5. Digitalize for now. Ar Gomez M.D. DR: DORIAN JOB#: [id number] CC:
--- NOTE | 2019-10-04 03:00 | NUR ---
NURSE NOTES: Complete bed bath with bed changed done.
--- NOTE | 2019-10-04 03:00 | NUR ---
NURSE NOTES: Transfused 1 u plateletpheresis unit no. [id number] A neg. watch for any untoward reactions.
--- NOTE | 2019-10-04 05:30 | NUR ---
NURSE NOTES: 1 unit plateletpheresis was over. no reactions noted.
[2019-10-04] MEDS: Hydrocortisone 100mg Inj IV SCH (06:31)
[2019-10-04] MEDS ORDERED: Heparin1,000 units/500ml Premix(Conc:2 units/ml) ONE (07:00)
[2019-10-04] MEDS ORDERED: Lidocaine 1% Plain 30 ml INJ ONE (07:00)
--- NOTE | 2019-10-04 07:35 | NUR ---
NURSE NOTES: NURSE NOTES: Pt received from REINALDO Blunt in no acute distress. Pt opens eyes spontaneously but unable to follow commands. Pupils are equal and round, 3 mm bilaterally with brisk light reaction. Noted in Afib to cardiac monitor technician with HR 103 bpm. Radial and dorsalis pedis pulses noted bounding 4+ bilaterally. Cap refill 2 sec. 1+ pitting edema noted to bilateral upper extremities. Pt is intubated with 7.5 ETT 24 cm at left lip. settings noted AC 16 TV 500 FiO2 80% Peep 5. Bilateral upper lung lobes CTA and bilateral lower lobes are diminished upon auscultation. Pt has an OGT running Glucerna 1.5 at 20 cc/hr with 50 cc gastric residuals noted at this time. Bowel sounds noted hypoactive on all abd quadrants. abd is round, large, non-tender, with notable hernia. Condom catheter noted draining yellow urine. Skin alterations and ecchymosis noted. Small amount of liquid noted weeping from upper extremities. Pt has a left femoral TLC running amiodarone drip at 0.5 mg/min (16.66 cc/hr) and D5NS at 75 cc/hr. Pt noted on HOP[employer] restraints, wrist skin is intact without notable redness, bilateral radial pulses palpable. Bed in lowest position, alarm on, side rails up x 2. Call light within reach. Will continue to monitor.
--- NOTE | 2019-10-04 07:35 | NUR ---
HAND-OFF: Report given to Breann NAJERA.
--- NOTE | 2019-10-04 07:49 | General Progress Note ---
Assessment/Plan Problem List: (1) AMS (altered mental status) ICD Codes: R41.82 - Altered mental status, unspecified SNOMED: 819715595 (2) Sepsis ICD Codes: A41.9 - Sepsis, unspecified organism SNOMED: 79218551 (3) Shock ICD Codes: R57.9 - Shock, unspecified SNOMED: 30371798 (4) Cirrhosis ICD Codes: K74.60 - Unspecified cirrhosis of liver SNOMED: 42452029 (5) Hypoxia ICD Codes: R09.02 - Hypoxemia SNOMED: 414420020 (6) Respiratory failure, acute ICD Codes: J96.00 - Acute respiratory failure, unspecified whether with hypoxia or hypercapnia SNOMED: 83260773 Qualifiers: Qualified Codes: J96.01 - Acute respiratory failure with hypoxia Status: stable Assessment/Plan: vent support pressors ivf nacl tabs stress dose steroids- weaning iv abx transfuse prn critical and guarded poor prognosis Subjective ROS Limited/Unobtainable: No Constitutional: Reports: malaise, weakness HEENT: Reports: no symptoms Cardiovascular: Reports: no symptoms Respiratory: Reports: shortness of breath Gastrointestinal/Abdominal: Reports: no symptoms Genitourinary: Reports: no symptoms Neurologic/Psychiatric: Reports: anxiety Endocrine: Reports: no symptoms Hematologic/Lymphatic: Reports: anemia Allergies: Coded Allergies: PENICILLINS (Verified Allergy, Intermediate, Rash, 09/01/19) Patient stated at this time All Systems: reviewed and negative except above Subjective no events. remains intubated. off pressors. on amio drip. HR low 100s. s/p plt transfusion. poor iv access. Objective Last 24 Hour Vital Signs Date Time Temp Pulse Resp B/P (MAP) Pulse Ox O2 Delivery O2 Flow Rate FiO2 10/04/19 07:00 101 23 101/52 (68) 99 10/04/19 06:30 103 23 98/55 (69) 99 10/04/19 06:00 106 23 96/50 (65) 99 10/04/19 05:30 106 23 92/49 (63) 99 10/04/19 05:25 108 25 80 10/04/19 05:00 112 28 89/51 (64) 10/04/19 04:30 110 22 91/51 (64) 93 10/04/19 04:00 106 10/04/19 04:00 98.6 109 22 95/50 (65) 92 10/04/19 04:00 80 10/04/19 04:00 Mechanical Ventilator 10/04/19 03:30 108 20 88/52 (64) 94 10/04/19 03:00 111 20 91/52 (65) 95 10/04/19 02:33 107 23 70 10/04/19 02:30 112 19 95/44 (61) 95 10/04/19 02:00 114 22 91/55 (67) 96 10/04/19 01:30 123 23 94/53 (67) 93 10/04/19 01:23 124 10/04/19 01:02 108 24 70 10/04/19 01:00 119 19 86/50 (62) 95 10/04/19 00:30 124 19 87/51 (63) 93 10/04/19 00:30 100/60 10/04/19 00:21 130 10/04/19 00:00 99.0 122 24 91/49 (63) 91 10/04/19 00:00 121 10/04/19 00:00 70 10/04/19 00:00 Mechanical Ventilator 10/03/19 23:30 127 24 93/59 (70) 93 10/03/19 23:01 128 29 70 10/03/19 23:00 126 23 93/55 (68) 95 10/03/19 22:30 125 19 91/55 (67) 92 10/03/19 22:15 124 25 94/56 (69) 93 10/03/19 22:00 128 25 101/56 (71) 91 10/03/19 21:30 129 19 100/62 (75) 92 10/03/19 21:26 120 25 70 10/03/19 21:00 127 25 101/56 (71) 92 10/03/19 20:00 60 10/03/19 20:00 98.9 120 33 100/60 (73) 95 10/03/19 20:00 126 10/03/19 20:00 Mechanical Ventilator 10/03/19 19:19 134 27 50 10/03/19 19:00 128 30 99/50 (66) 96 10/03/19 18:00 95 27 98/44 (62) 95 10/03/19 17:00 94 25 95/45 (62) 93 10/03/19 16:46 103 20 92 Mechanical Ventilator 50 10/03/19 16:43 94 28 50 10/03/19 16:12 Mechanical Ventilator 10/03/19 16:00 50 10/03/19 16:00 91 10/03/19 16:00 97.2 93 27 94/46 (62) 93 10/03/19 15:23 100 26 50 10/03/19 15:00 88 27 99/52 (68) 93 10/03/19 14:00 93 29 90/50 (63) 92 10/03/19 13:00 90 24 107/64 (78) 94 10/03/19 12:50 86 28 50 10/03/19 12:00 86 10/03/19 12:00 55 10/03/19 12:00 Mechanical Ventilator 10/03/19 12:00 97.3 86 27 92/51 (65) 92 10/03/19 11:29 85 24 50 10/03/19 11:00 88 26 96/49 (65) 95 10/03/19 10:00 90 26 95/51 (66) 94 10/03/19 09:21 60 10/03/19 09:00 85 25 92/44 (60) 94 10/03/19 08:57 85 24 80 10/03/19 08:00 97.8 82 22 116/55 (75) 100 10/03/19 08:00 Mechanical Ventilator 10/03/19 08:00 80 10/03/19 08:00 71 Intake and Output 10/03/19 10/04/19 19:00 07:00 Intake Total 1265 ml 1901.60 ml Output Total 525 ml 1741 ml Balance 740 ml 160.60 ml Free Water 150 ml 60 ml IV Total 865 ml 1301.60 ml Tube Feeding 220 ml 40 ml Blood Product 500 ml Other 30 ml Output Urine Total 525 ml 1740 ml Stool Total 1 ml # Bowel Movements 4 3 Laboratory Tests 10/03/19 10:50: Lactic Acid Level 4.10H 10/03/19 16:00: Lactic Acid Level 4.10H 10/03/19 18:45: Lactic Acid Level 4.00H Height (Feet): 5 Height (Inches): 8.00 Weight (Pounds): 140 Objective General Appearance: WD/WN, lethargic. orally intubated Neck: supple Cardiovascular: regular rhythm Respiratory/Chest: lungs td rhonchi Abdomen: normal bowel sounds, non tender. small reducible periumbilical hernia Edema: no edema noted Arm (L), no edema noted Arm (R), no edema noted Leg (L), no edema noted Leg (R), no edema noted Pedal (L), no edema noted Pedal (R), no edema noted Generalized Henry Leavitt MD Oct 04, 2019 07:49
[2019-10-04] MEDS ORDERED: Heparin1,000 units/500ml Premix(Conc:2 units/ml) IV PRN (08:00)
[2019-10-04] MEDS ORDERED: Lidocaine 1% Plain 30 ml INJ PRN (08:00)
--- NOTE | 2019-10-04 08:06 | Pulmonology Progress Note ---
Assessment/Plan Assessment/Plan Impression - MRSA Pneumonia - Persistent leucocytosis - Hypoxic respiratory Failure - CHFpEF - Atrial Fibrillation - Cirrhosis, h/o ETOH Use, ascites s/p Paracentesis - Homeless - Enterobacter UTI s/p rx - Thrombocytopenia - Anasarca - tachycardia - overwhelming sepsis +++ positive cultures PLAN still on high fio2 currently on vent on hydrocortisone and taper consider bedside bronchoscopy if able once more stable currently unstable and extremely critical remains ill taper oxygen and monitor CXR and ABG in ICU prognosis remains poor still too ill for intervention impression, plan, and exam edited and reviewed in detail care discussed with RN Subjective ROS Limited/Unobtainable: Yes Allergies: Coded Allergies: PENICILLINS (Verified Allergy, Intermediate, Rash, 09/01/19) Patient stated at this time Subjective care noted on vent on full vent support O2 at 70% Objective Last 24 Hour Vital Signs Date Time Temp Pulse Resp B/P (MAP) Pulse Ox O2 Delivery O2 Flow Rate FiO2 10/04/19 07:30 111 26 102/49 (66) 97 10/04/19 07:00 101 23 101/52 (68) 99 10/04/19 06:50 102 20 70 10/04/19 06:30 103 23 98/55 (69) 99 10/04/19 06:00 106 23 96/50 (65) 99 10/04/19 05:30 106 23 92/49 (63) 99 10/04/19 05:25 108 25 80 10/04/19 05:00 112 28 89/51 (64) 10/04/19 04:30 110 22 91/51 (64) 93 10/04/19 04:00 106 10/04/19 04:00 98.6 109 22 95/50 (65) 92 10/04/19 04:00 80 10/04/19 04:00 Mechanical Ventilator 10/04/19 03:30 108 20 88/52 (64) 94 10/04/19 03:00 111 20 91/52 (65) 95 10/04/19 02:33 107 23 70 10/04/19 02:30 112 19 95/44 (61) 95 10/04/19 02:00 114 22 91/55 (67) 96 10/04/19 01:30 123 23 94/53 (67) 93 10/04/19 01:23 124 1/20/20 01:02 108 24 70 10/04/19 01:00 119 19 86/50 (62) 95 10/04/19 00:30 124 19 87/51 (63) 93 10/04/19 00:30 100/60 10/04/19 00:21 130 10/04/19 00:00 99.0 122 24 91/49 (63) 91 10/04/19 00:00 121 10/04/19 00:00 70 10/04/19 00:00 Mechanical Ventilator 10/03/19 23:30 127 24 93/59 (70) 93 10/03/19 23:01 128 29 70 10/03/19 23:00 126 23 93/55 (68) 95 10/03/19 22:30 125 19 91/55 (67) 92 10/03/19 22:15 124 25 94/56 (69) 93 10/03/19 22:00 128 25 101/56 (71) 91 10/03/19 21:30 129 19 100/62 (75) 92 10/03/19 21:26 120 25 70 10/03/19 21:00 127 25 101/56 (71) 92 10/03/19 20:00 60 10/03/19 20:00 98.9 120 33 100/60 (73) 95 10/03/19 20:00 126 10/03/19 20:00 Mechanical Ventilator 10/03/19 19:19 134 27 50 10/03/19 19:00 128 30 99/50 (66) 96 10/03/19 18:00 95 27 98/44 (62) 95 10/03/19 17:00 94 25 95/45 (62) 93 10/03/19 16:46 103 20 92 Mechanical Ventilator 50 10/03/19 16:43 94 28 50 10/03/19 16:12 Mechanical Ventilator 10/03/19 16:00 50 10/03/19 16:00 91 10/03/19 16:00 97.2 93 27 94/46 (62) 93 10/03/19 15:23 100 26 50 10/03/19 15:00 88 27 99/52 (68) 93 10/03/19 14:00 93 29 90/50 (63) 92 10/03/19 13:00 90 24 107/64 (78) 94 10/03/19 12:50 86 28 50 10/03/19 12:00 86 10/03/19 12:00 55 10/03/19 12:00 Mechanical Ventilator 10/03/19 12:00 97.3 86 27 92/51 (65) 92 10/03/19 11:29 85 24 50 10/03/19 11:00 88 26 96/49 (65) 95 10/03/19 10:00 90 26 95/51 (66) 94 10/03/19 09:21 60 10/03/19 09:00 85 25 92/44 (60) 94 10/03/19 08:57 85 24 80 Intake and Output 10/03/19 10/04/19 19:00 07:00 Intake Total 1265 ml 1901.60 ml Output Total 525 ml 1741 ml Balance 740 ml 160.60 ml Free Water 150 ml 60 ml IV Total 865 ml 1301.60 ml Tube Feeding 220 ml 40 ml Blood Product 500 ml Other 30 ml Output Urine Total 525 ml 1740 ml Stool Total 1 ml # Bowel Movements 4 3 Objective WDWN NAD coarse breath sounds bilaterally without rhonchi or wheeze [id number] without MRG NABS nontender no HSM some distention no CC some edema nonfocal sedated Laboratory Tests 10/03/19 10:50: Lactic Acid Level 4.10H 10/03/19 16:00: Lactic Acid Level 4.10H 10/03/19 18:45: Lactic Acid Level 4.00H Current Medications Medications (Trade) Dose Ordered Sig/Akash Route PRN Reason Start Time Stop Time Status Last Admin Dose Admin Acetaminophen (Tylenol) 650 mg Q6H PRN NG FEVER 09/30/19 10:30 10/30/19 10:29 Amiodarone HCl 900 mg/Dextrose 500 ml @ 16.66 mls/ hr Q24H IV 10/03/19 21:15 10/04/19 21:14 10/03/19 21:31 Chlorhexidine Gluconate (Tammy-Hex 2%) 1 applic DAILY@2000 TOPIC 10/04/19 20:00 11/03/19 19:59 Dextrose/Sodium Chloride 1,000 ml @ 75 mls/hr [id number] IV 10/02/19 08:15 11/01/19 08:14 10/03/19 23:19 Diphenhydramine HCl (Benadryl) 25 mg Q6H PRN ORAL Itching 09/28/19 13:25 10/28/19 13:24 09/29/19 10:09 Fentanyl Citrate 1000 mcg/Sodium Chloride 100 ml @ 0 mls/hr Q24H IV 09/29/19 12:57 10/05/19 12:56 09/28/19 14:08 Heparin Sodium/ Sodium Chloride (Heparin 1000 units/500ml Premix) 1,000 unit ONCE PRN IV PICC LINE 10/04/19 08:00 10/05/19 23:59 Hydrocortisone (Solu-CORTEF) 100 mg Q12H IV 10/03/19 18:00 11/02/19 17:59 10/04/19 06:31 Lidocaine HCl (Xylocaine 1% 30ml) 30 ml ONCE PRN INJ PICC LINE 10/04/19 08:00 10/05/19 23:59 Lorazepam (Ativan 2mg/ml 1ml) 1 mg Q4H PRN IV For Anxiety 09/28/19 13:25 10/05/19 13:24 Multivitamins (Multivitamins) 1 tab DAILY ORAL 09/29/19 09:00 10/22/19 08:59 10/03/19 09:58 Nicotine (Nicoderm) 1 patch Q24H TDERMAL 09/29/19 01:00 10/29/19 00:59 10/04/19 01:14 Norepinephrine Bitartrate 8 mg/ Dextrose 558 ml @ 0 mls/hr Q24H IV 10/04/19 00:30 11/03/19 00:29 Pantoprazole (Protonix) 40 mg ACBREAKFAST ORAL 09/29/19 06:30 10/22/19 08:59 10/04/19 06:31 Sodium Chloride 500 ml @ 999 mls/hr Q31M PRN IV SBP <95 10/03/19 21:15 11/02/19 21:14 10/03/19 23:20 Sodium Chloride (NaCl) 1 gm THREE TIMES A DAY ORAL 10/03/19 10:00 11/02/19 09:59 10/03/19 17:16 Thiamine HCl (Vitamin B1) 100 mg DAILY ORAL 09/29/19 09:00 10/22/19 08:59 10/03/19 09:58 Tigecycline 50 mg/ Sodium Chloride 110 ml @ 220 mls/hr EVERY 12 HOURS IVPB 10/02/19 21:00 10/09/19 20:59 10/03/19 21:31 Vancomycin HCl (Vanco rx to dose) 1 ea DAILY PRN MISC Per rx protocol 10/02/19 10:30 11/01/19 10:29 Simon Lopez MD Oct 04, 2019 08:06
[2019-10-04] MEDS: Sodium Chloride 1gm Tab ORAL SCH ×3 (08:58→17:24)
[2019-10-04] MEDS: Thiamine 100mg tab ORAL SCH (08:58)
[2019-10-04] MEDS: Tigecycline 50 MG in NS 110 ML IVPB SCH ×2 (08:58→21:15)
[2019-10-04 09:36] LABS: HEMATOCRIT 26.1 % (42.0-52.0); HEMOGLOBIN 8.7 G/DL (14.2-18.0); MEAN CORPUSCULAR VOLUME 101 FL (80-99); PLATELET COUNT 67 K/UL (150-450); RED BLOOD COUNT 2.59 M/UL (4.70-6.10)
[2019-10-04 09:42] LABS: WHITE BLOOD COUNT 31.8 K/UL (4.8-10.8)
[2019-10-04 10:08] LABS: ALANINE AMINOTRANSFERASE 38 U/L (12-78); ALBUMIN 1.7 G/DL (3.4-5.0); ALBUMIN/GLOBULIN RATIO 0.4 (1.0-2.7); ALKALINE PHOSPHATASE 136 U/L (46-116); ANION GAP 11 mmol/L (5-15); ASPARTATE AMINO TRANSFERASE 48 U/L (15-37); BLOOD UREA NITROGEN 101 mg/dL (7-18); CARBON DIOXIDE 24 MMOL/L (21-32); CHLORIDE 100 MMOL/L (98-107); CREATININE 2.3 MG/DL (0.55-1.30); POTASSIUM 4.4 MMOL/L (3.5-5.1); SODIUM 135 MMOL/L (136-145)
[2019-10-04 10:10] LABS: BILIRUBIN,DIRECT 1.5 MG/DL (0.0-0.3)
--- NOTE | 2019-10-04 10:13 | NUR ---
NURSE NOTES: Left message with Dr. Erazo regarding pt's WBC count today of 31.8. Awaiting call back. Pt now being prepared for PICC placement by RAD personnel. No acute distress noted.
--- NOTE | 2019-10-04 10:30 | NUR ---
NURSE NOTES: Dr Lopez at bedside, ABG results for today discussed. Vent settings to be changed to FiO2 of 50% and Peep 10.
[2019-10-04 10:39] LABS: INR 1.4 (0.9-1.1)
--- NOTE | 2019-10-04 11:04 | NUR ---
NURSE NOTES: Dr Erazo at bedside assessing pt. PICC placement procedure complete, PICC placed in [place]. No acute distress noted. No bleeding noted from PICC site. Awaiting placement confirmation.
--- NOTE | 2019-10-04 11:18 | Consultation ---
History of Present Illness General Date patient seen: Oct 04, 2019 Chief Complaint: Altered Level of Consciousness Present Illness HPI 59-year-old male who was admitted to [facility] with altered mental status. During the course of his hospitalization, the patient developed pneumonia and grew MRSA. He also developed ascites secondary to liver cirrhosis, which he underwent paracentesis. However, his respiratory status deteriorated and chest CT scan demonstrated bilateral upper lobe ground- glass opacification. In ICU ill appearing bed bound. high risk for decubitus formation. has DTI noted. surgery called to evaluate and assist with care Allergies: Coded Allergies: PENICILLINS (Verified Allergy, Intermediate, Rash, 09/01/19) Patient stated at this time Medication History Unable to Obtain Active Prescriptions or Reported Meds Patient History Limited by: medical condition History Provided By: Medical Record, PMD Healthcare decision maker Resuscitation status Full Code Advanced Directive on File Past Medical/Surgical History Past Medical/Surgical History: (1) AMS (altered mental status) (2) Hypoxia (3) Respiratory failure, acute (4) Cirrhosis (5) Sepsis (6) Shock Review of Systems ROS Narrative cannot obtain given medical condition Physical Exam General Appearance: mild distress Lines, tubes and drains: central line, other Last 24 Hour Vital Signs Date Time Temp Pulse Resp B/P (MAP) Pulse Ox O2 Delivery O2 Flow Rate FiO2 10/04/19 11:00 112 27 100/57 (71) 96 10/04/19 10:30 110 27 95/53 (67) 97 10/04/19 10:15 107 26 96/56 (69) 97 10/04/19 10:00 106 30 94/57 (69) 96 10/04/19 09:30 112 25 98/47 (64) 95 10/04/19 09:00 113 27 99/57 (71) 96 10/04/19 08:57 106 28 70 10/04/19 08:50 60 10/04/19 08:30 109 24 98/57 (71) 99 10/04/19 08:15 112 24 100/55 (70) 97 10/04/19 08:00 107 10/04/19 08:00 97.6 109 22 91/53 (66) 99 10/04/19 08:00 80 10/04/19 08:00 Mechanical Ventilator Mechanical Ventilator 10/04/19 07:30 111 26 102/49 (66) 97 10/04/19 07:00 101 23 101/52 (68) 99 10/04/19 06:50 102 20 70 10/04/19 06:30 103 23 98/55 (69) 99 10/04/19 06:00 106 23 96/50 (65) 99 10/04/19 05:30 106 23 92/49 (63) 99 10/04/19 05:25 108 25 80 10/04/19 05:00 112 28 89/51 (64) 10/04/19 04:30 110 22 91/51 (64) 93 10/04/19 04:00 106 10/04/19 04:00 98.6 109 22 95/50 (65) 92 10/04/19 04:00 80 10/04/19 04:00 Mechanical Ventilator 10/04/19 03:30 108 20 88/52 (64) 94 10/04/19 03:00 111 20 91/52 (65) 95 10/04/19 02:33 107 23 70 10/04/19 02:30 112 19 95/44 (61) 95 10/04/19 02:00 114 22 91/55 (67) 96 10/04/19 01:30 123 23 94/53 (67) 93 10/04/19 01:23 124 10/04/19 01:02 108 24 70 10/04/19 01:00 119 19 86/50 (62) 95 10/04/19 00:30 124 19 87/51 (63) 93 10/04/19 00:30 100/60 10/04/19 00:21 130 10/04/19 00:00 99.0 122 24 91/49 (63) 91 10/04/19 00:00 121 10/04/19 00:00 70 10/04/19 00:00 Mechanical Ventilator 10/03/19 23:30 127 24 93/59 (70) 93 10/03/19 23:01 128 29 70 10/03/19 23:00 126 23 93/55 (68) 95 10/03/19 22:30 125 19 91/55 (67) 92 10/03/19 22:15 124 25 94/56 (69) 93 10/03/19 22:00 128 25 101/56 (71) 91 10/03/19 21:30 129 19 100/62 (75) 92 10/03/19 21:26 120 25 70 10/03/19 21:00 127 25 101/56 (71) 92 10/03/19 20:00 60 10/03/19 20:00 98.9 120 33 100/60 (73) 95 10/03/19 20:00 126 10/03/19 20:00 Mechanical Ventilator 10/03/19 19:19 134 27 50 10/03/19 19:00 128 30 99/50 (66) 96 10/03/19 18:00 95 27 98/44 (62) 95 10/03/19 17:00 94 25 95/45 (62) 93 10/03/19 16:46 103 20 92 Mechanical Ventilator 50 10/03/19 16:43 94 28 50 10/03/19 16:12 Mechanical Ventilator 10/03/19 16:00 50 10/03/19 16:00 91 10/03/19 16:00 97.2 93 27 94/46 (62) 93 10/03/19 15:23 100 26 50 10/03/19 15:00 88 27 99/52 (68) 93 10/03/19 14:00 93 29 90/50 (63) 92 10/03/19 13:00 90 24 107/64 (78) 94 10/03/19 12:50 86 28 50 10/03/19 12:00 86 10/03/19 12:00 55 10/03/19 12:00 Mechanical Ventilator 10/03/19 12:00 97.3 86 27 92/51 (65) 92 10/03/19 11:29 85 24 50 Intake and Output 10/03/19 10/04/19 19:00 07:00 Intake Total 1265 ml 1901.60 ml Output Total 525 ml 1741 ml Balance 740 ml 160.60 ml Free Water 150 ml 60 ml IV Total 865 ml 1301.60 ml Tube Feeding 220 ml 40 ml Blood Product 500 ml Other 30 ml Output Urine Total 525 ml 1740 ml Stool Total 1 ml # Bowel Movements 4 3 Laboratory Tests Test 10/03/19 16:00 10/03/19 18:45 10/04/19 08:57 10/04/19 09:10 Lactic Acid Level 4.10 mmol/L (0.4-2.0) H 4.00 mmol/L (0.66-2.22) H Arterial Blood pH 7.502 (7.350-7.450) Arterial Blood Partial Pressure CO2 22.2 mmHg (35.0-45.0) *L Arterial Blood Partial Pressure O2 109.0 mmHg (75.0-100.0) H Arterial Blood HCO3 17.0 mmol/L (22.0-26.0) *L Arterial Blood Oxygen Saturation 98.3 % (95-100) Arterial Blood Base Excess -5.0 (-2-2) L Giovanny Test Positive White Blood Count 31.8 K/UL (4.8-10.8) *H Red Blood Count 2.59 M/UL (4.70-6.10) L Hemoglobin 8.7 G/DL (14.2-18.0) L Hematocrit 26.1 % (42.0-52.0) L Mean Corpuscular Volume 101 FL (80-99) H Mean Corpuscular Hemoglobin 33.8 PG (27.0-31.0) H Mean Corpuscular Hemoglobin Concent 33.5 G/DL (32.0-36.0) Red Cell Distribution Width 15.0 % (11.6-14.8) H Platelet Count 67 K/UL (150-450) #L Mean Platelet Volume 7.4 FL (6.5-10.1) Neutrophils (%) (Auto) % (45.0-75.0) Lymphocytes (%) (Auto) % (20.0-45.0) Monocytes (%) (Auto) % (1.0-10.0) Eosinophils (%) (Auto) % (0.0-3.0) Basophils (%) (Auto) % (0.0-2.0) Differential Total Cells Counted 100 Neutrophils % (Manual) 93 % (45-75) H Lymphocytes % (Manual) 2 % (20-45) L Monocytes % (Manual) 2 % (1-10) Eosinophils % (Manual) 0 % (0-3) Basophils % (Manual) 0 % (0-2) Band Neutrophils 3 % (0-8) Platelet Estimate Decreased L Platelet Morphology Normal Hypochromasia 1+ Anisocytosis 1+ Macrocytosis 1+ Prothrombin Time 14.2 SEC (9.30-11.50) H Prothromb Time International Ratio 1.4 (0.9-1.1) H Activated Partial Thromboplast Time 40 SEC (23-33) H Fibrinogen 224 mg/dL (200-400) Sodium Level 135 MMOL/L (136-145) L Potassium Level 4.4 MMOL/L (3.5-5.1) Chloride Level 100 MMOL/L (98-107) Carbon Dioxide Level 24 MMOL/L (21-32) Anion Gap 11 mmol/L (5-15) Blood Urea Nitrogen 101 mg/dL (7-18) H Creatinine 2.3 MG/DL (0.55-1.30) H Estimat Glomerular Filtration Rate 29.2 mL/min (>60) Glucose Level 129 MG/DL (74-106) H Calcium Level 7.0 MG/DL (8.5-10.1) L Total Bilirubin 2.0 MG/DL (0.2-1.0) H Direct Bilirubin 1.5 MG/DL (0.0-0.3) H Aspartate Amino Transf (AST/SGOT) 48 U/L (15-37) H Alanine Aminotransferase (ALT/SGPT) 38 U/L (12-78) Alkaline Phosphatase 136 U/L (46-116) H Total Protein 5.9 G/DL (6.4-8.2) L Albumin 1.7 G/DL (3.4-5.0) L Globulin 4.2 g/dL Albumin/Globulin Ratio 0.4 (1.0-2.7) L Random Vancomycin Level 8.0 ug/mL Height (Feet): 5 Height (Inches): 8.00 Weight (Pounds): 140 Medications Current Medications Medications (Trade) Dose Ordered Sig/Akash Route PRN Reason Start Time Stop Time Status Last Admin Dose Admin Acetaminophen (Tylenol) 650 mg Q6H PRN NG FEVER 09/30/19 10:30 10/30/19 10:29 Amiodarone HCl 900 mg/Dextrose 500 ml @ 16.66 mls/ hr Q24H IV 10/03/19 21:15 10/04/19 21:14 10/03/19 21:31 Chlorhexidine Gluconate (Tammy-Hex 2%) 1 applic DAILY@2000 TOPIC 10/04/19 20:00 11/03/19 19:59 Dextrose/Sodium Chloride 1,000 ml @ 75 mls/hr [id number] IV 10/02/19 08:15 11/01/19 08:14 10/03/19 23:19 Diphenhydramine HCl (Benadryl) 25 mg Q6H PRN ORAL Itching 09/28/19 13:25 10/28/19 13:24 09/29/19 10:09 Fentanyl Citrate 1000 mcg/Sodium Chloride 100 ml @ 0 mls/hr Q24H IV 09/29/19 12:57 10/05/19 12:56 09/28/19 14:08 Heparin Sodium/ Sodium Chloride (Heparin 1000 units/500ml Premix) 1,000 unit ONCE PRN IV PICC LINE 10/04/19 08:00 10/05/19 23:59 Hydrocortisone (Solu-CORTEF) 100 mg DAILY IV 10/05/19 09:00 11/04/19 08:59 Lidocaine HCl (Xylocaine 1% 30ml) 30 ml ONCE PRN INJ PICC LINE 10/04/19 08:00 10/05/19 23:59 Lorazepam (Ativan 2mg/ml 1ml) 1 mg Q4H PRN IV For Anxiety 09/28/19 13:25 10/05/19 13:24 Multivitamins (Multivitamins) 1 tab DAILY ORAL 09/29/19 09:00 10/22/19 08:59 10/04/19 08:58 Nicotine (Nicoderm) 1 patch Q24H TDERMAL 09/29/19 01:00 10/29/19 00:59 10/04/19 01:14 Norepinephrine Bitartrate 8 mg/ Dextrose 558 ml @ 0 mls/hr Q24H IV 10/04/19 00:30 11/03/19 00:29 Pantoprazole (Protonix) 40 mg ACBREAKFAST ORAL 09/29/19 06:30 10/22/19 08:59 10/04/19 06:31 Sodium Chloride 500 ml @ 999 mls/hr Q31M PRN IV SBP <95 10/03/19 21:15 11/02/19 21:14 10/03/19 23:20 Sodium Chloride (NaCl) 1 gm THREE TIMES A DAY ORAL 10/03/19 10:00 11/02/19 09:59 10/04/19 08:58 Thiamine HCl (Vitamin B1) 100 mg DAILY ORAL 09/29/19 09:00 10/22/19 08:59 10/04/19 08:58 Tigecycline 50 mg/ Sodium Chloride 110 ml @ 220 mls/hr EVERY 12 HOURS IVPB 10/02/19 21:00 10/09/19 20:59 10/04/19 08:58 Vancomycin HCl (Vanco rx to dose) 1 ea DAILY PRN MISC Per rx protocol 10/02/19 10:30 11/01/19 10:29 Vancomycin HCl 1 gm/Dextrose 275 ml @ 183.708 mls/hr ONCE ONCE IVPB 10/04/19 12:00 10/04/19 13:29 Assessment/Plan Problem List: (1) Sepsis Assessment & Plan: Pt presented hyperpigmentation sacrum with loose dry/ peeling skin. Non -tender when palpated.Scrotum is erythematous. Pt is incontinent of B and B per staff. Condom cath placed on pt by primary nurse. Pt educated on wound prevention and encouraged to frequently turn ,or at least hourly to prevent skin breakdown. No other skin concerns noted. Tx.plan: Apply Moisture Barrier Paste to sacrum. Cover with Optifoam drsg. Change every 3 days and prn. Apply Cavilon Skin Barrier to both heels. Cover each heel with Optifoam drsg. Change every 7 days and prn. Reposition at least every 2hours or as tolerated. Off-load heels with pillow. DAILY ESTIMATED NEEDS: Needs based on Liver, Pulmonary, Critical care 55kg 22-30 kcals/kg 5420-1346 total kcals 1.25-2 g protein/kg 69-110 g total protein 25-30 mL/kg 9664-9552 total fluid mLs NUTRITION DIAGNOSIS: * Swallowing difficulty R/T dysphagia, respiratory status as evidenced by pt on [facility] soft finely chopped texture- was upgraded to Soft easy chew, was mostly on BIPAP, on non-rebreather during meals-> now orally intubated in ICU, non oral feeds. * Decreased sodium and fat needs r/t clinical status, ascites, as evidenced by s/p paracentesis, elev LFT's, elev T bili (INACTIVE) CURRENT TF:Glucerna 1.5 @20ml- held ENTERAL NUTRITION RECOMMENDATIONS: WHEN HD STABLE: Vital AF 1.2 @ 50ml/hr x 24 hrs to provide 1200ml, 1440kcal, 90g prot, 973ml free water * WHEN PT HEMODYNAMICALLY STABLE: -> initiate Vital AF 1.2 @ 10ml/hr x 6 hrs -> advance 10ml q 4-6 hrs as tolerated -> HOB over 30 degrees/ water flush per MD WITHOUT HD STABILTY: consider trophic feeding of Vital AF 1.2 @ 5-10ml/hr if able to raise bed >30 degrees ADDITIONAL RECOMMENDATIONS: 1) Obtain daily standing weight for accuracy or calibrated bedscale wt current bedscale wt 115 bs vs initial bedscale wt 158lbs 2) Monitor HD stability: on NE @ 30mcg-> now @8mcg-> now off LA trending up (4.0) 3) Monitor renal fxn and liver fxn: creat and T bili trend up 4) WC eval for sacral DTPI ICD Codes: A41.9 - Sepsis, unspecified organism SNOMED: 45881860 (2) Shock Assessment & Plan: Pulmonary arterial opacification is somewhat suboptimal, and small peripheral emboli could be missed. In addition, there is some image degradation due to motion artifact which also precludes exclusion of small peripheral emboli. No gross large vessel pulmonary emboli are demonstrated. The left main pulmonary artery is ectatic, measuring up to 2.5 cm. No isolated right ventricular dilatation. There is generalized four-chamber cardiomegaly. No evidence of thoracic aortic aneurysm or dissection. Normal caliber and branching anatomy of the right neck vessels is noted. There is extensive pulmonary parenchymal disease. There is extensive groundglass opacity involving most of the upper lobes. There is extensive interstitial septal thickening involving the lower lobes, as well as considerable atelectasis and confluent opacity. There is of bronchiectasis, subpleural blebs, and bilateral peripheral honeycombing are also present. There are bilateral small pleural effusions. The extent of the pulmonary parenchymal disease at the lung bases is greater than that which was visualized on abdomen CT scan of 08/23/2019 There is considerable edema of the mediastinal and epicardial fat, but no definite pericardial effusion is demonstrated. No mediastinal or hilar mass or adenopathy. Grossly unremarkable esophagus. The visualized thyroid is unremarkable. No axillary or chest wall mass or adenopathy. There is mild height loss of the T8 vertebral body. It is slightly sclerotic, demonstrates considerable superior and inferior endplate irregularity. There is degenerative spondylosis elsewhere in the thoracic spine. Included upper abdominal anatomy demonstrates atrophic liver with surface nodularity. There is a TIPS shunt in place which is probably patent. There is hypertrophy of the hepatic arteries. Gallstones are noted. There is considerable ascites fluid present. What are probably embolic coils are seen in the region of the splenic capsule. Impression: Somewhat suboptimal pulmonary arterial opacification as well as limitation of exam by motion artifact. Small peripheral emboli not completely excludable. No gross large vessel central pulmonary emboli demonstrated. Mildly dilated left main pulmonary artery, suggestive of but not diagnostic for pulmonary arterial hypertension Cardiomegaly Evidence of anasarca, with diffuse body wall and mediastinal edema, small bilateral pleural effusions, ascites Extensive pulmonary parenchymal disease, as described, with groundglass opacity, interstitial septal thickening, bronchiectasis, subpleural blebs, and peripheral honeycombing. Given the finding of cardiomegaly and anasarca, findings most likely on the basis of pulmonary edema. Pneumonia is also a possibility. In addition, there is probably underlying component of chronic fibrotic change. T8 vertebral body loss of height. This may reflect age-indeterminate compression fracture deformity versus degenerative remodeling. Consider MRI for better characterization if clinically relevant Evidence of hepatic cirrhosis. Evidence of portal hypertension, with a TIPS shunt in place, and ascites. This is been previously described Cholelithiasis Perisplenic embolic coils. Degenerative spondylosis ICD Codes: R57.9 - Shock, unspecified SNOMED: 65525267 (3) Cirrhosis Assessment & Plan: There is an orogastric tube in place, tip projected at the level of the fundus body junction, proximal port well distal to the expected level of the gastric esophageal junction. There is a TIPS shunt present. Bowel gas pattern is unremarkable. Vascular embolic coils are seen in the left upper quadrant. There is mild lumbar scoliotic deformity and considerable degenerative lumbar spondylosis * Significant interval reduction of ascites status post paracentesis. * Cirrhosis with indwelling patent TIPS shunt. Elevated velocities in the distal aspect of the TIPS shunt > 200 cm/s suggesting a degree of possible in-stent stenosis, especially given recurrent ascites. Correlation with prior ultrasound is essential to assess for interval change in velocities. Patient may benefit from interventional tip study with portal pressure measurements and possible TIPS angioplasty, especially if there is a significant elevation in velocities in the shunt upon comparison with baseline study. * Cholelithiasis. No radiographic evidence to suggest acute cholecystitis. Sonographic Ponce sign reported as negative. ICD Codes: K74.60 - Unspecified cirrhosis of liver SNOMED: 74992306 (4) Respiratory failure, acute ICD Codes: J96.00 - Acute respiratory failure, unspecified whether with hypoxia or hypercapnia SNOMED: 98880505 Qualifiers: Qualified Codes: J96.01 - Acute respiratory failure with hypoxia Michael Merrill Oct 04, 2019 11:18
--- NOTE | 2019-10-04 11:25 | NUR ---
RADIOLOGY NOTE: RIGHT UPPER EXTREMITY PICC LINE PLACEMENT BY DR. MIGUEL CARDOZA AT 1045 HRS. FA
--- NOTE | 2019-10-04 11:54 | Infectious Diseases Prog Note ---
Assessment/Plan Assessment/Plan antibiotics : vancomycin iv, tygacil A 1. MRSA pneumonia 2. respiratory failure 3. klebsiella UTI 4. cirrhosis 5. ascites s/p paracentesis no SBP 6. thrombocytopenia improving 7. leucocytosis likely secondary to steroids 8. renal failure improving 9. MRSA sepsis P 1. continue iv vancomycin, tygacil 2. will follow up cultures 3. 2 d echo Subjective ROS Limited/Unobtainable: Yes Allergies: Coded Allergies: PENICILLINS (Verified Allergy, Intermediate, Rash, 09/01/19) Patient stated at this time Objective Vital Signs Last 24 Hour Vital Signs Date Time Temp Pulse Resp B/P (MAP) Pulse Ox O2 Delivery O2 Flow Rate FiO2 10/04/19 11:18 104 27 40 10/04/19 11:15 60 10/04/19 11:00 112 27 100/57 (71) 96 10/04/19 11:00 50 10/04/19 10:30 110 27 95/53 (67) 97 10/04/19 10:15 107 26 96/56 (69) 97 10/04/19 10:00 106 30 94/57 (69) 96 10/04/19 09:30 112 25 98/47 (64) 95 10/04/19 09:00 113 27 99/57 (71) 96 10/04/19 08:57 106 28 70 10/04/19 08:50 60 10/04/19 08:30 109 24 98/57 (71) 99 10/04/19 08:15 112 24 100/55 (70) 97 10/04/19 08:00 107 10/04/19 08:00 97.6 109 22 91/53 (66) 99 10/04/19 08:00 80 10/04/19 08:00 Mechanical Ventilator Mechanical Ventilator 10/04/19 07:30 111 26 102/49 (66) 97 10/04/19 07:00 101 23 101/52 (68) 99 10/04/19 06:50 102 20 70 10/04/19 06:30 103 23 98/55 (69) 99 10/04/19 06:00 106 23 96/50 (65) 99 10/04/19 05:30 106 23 92/49 (63) 99 10/04/19 05:25 108 25 80 10/04/19 05:00 112 28 89/51 (64) 10/04/19 04:30 110 22 91/51 (64) 93 10/04/19 04:00 106 10/04/19 04:00 98.6 109 22 95/50 (65) 92 10/04/19 04:00 80 10/04/19 04:00 Mechanical Ventilator 10/04/19 03:30 108 20 88/52 (64) 94 10/04/19 03:00 111 20 91/52 (65) 95 10/04/19 02:33 107 23 70 10/04/19 02:30 112 19 95/44 (61) 95 10/04/19 02:00 114 22 91/55 (67) 96 10/04/19 01:30 123 23 94/53 (67) 93 10/04/19 01:23 124 10/04/19 01:02 108 24 70 10/04/19 01:00 119 19 86/50 (62) 95 10/04/19 00:30 124 19 87/51 (63) 93 10/04/19 00:30 100/60 10/04/19 00:21 130 10/04/19 00:00 99.0 122 24 91/49 (63) 91 10/04/19 00:00 121 10/04/19 00:00 70 10/04/19 00:00 Mechanical Ventilator 10/03/19 23:30 127 24 93/59 (70) 93 10/03/19 23:01 128 29 70 10/03/19 23:00 126 23 93/55 (68) 95 10/03/19 22:30 125 19 91/55 (67) 92 10/03/19 22:15 124 25 94/56 (69) 93 10/03/19 22:00 128 25 101/56 (71) 91 10/03/19 21:30 129 19 100/62 (75) 92 10/03/19 21:26 120 25 70 10/03/19 21:00 127 25 101/56 (71) 92 10/03/19 20:00 60 10/03/19 20:00 98.9 120 33 100/60 (73) 95 10/03/19 20:00 126 10/03/19 20:00 Mechanical Ventilator 10/03/19 19:19 134 27 50 10/03/19 19:00 128 30 99/50 (66) 96 10/03/19 18:00 95 27 98/44 (62) 95 10/03/19 17:00 94 25 95/45 (62) 93 10/03/19 16:46 103 20 92 Mechanical Ventilator 50 10/03/19 16:43 94 28 50 10/03/19 16:12 Mechanical Ventilator 10/03/19 16:00 50 10/03/19 16:00 91 10/03/19 16:00 97.2 93 27 94/46 (62) 93 10/03/19 15:23 100 26 50 10/03/19 15:00 88 27 99/52 (68) 93 10/03/19 14:00 93 29 90/50 (63) 92 10/03/19 13:00 90 24 107/64 (78) 94 10/03/19 12:50 86 28 50 10/03/19 12:00 86 10/03/19 12:00 55 10/03/19 12:00 Mechanical Ventilator 10/03/19 12:00 97.3 86 27 92/51 (65) 92 Height (Feet): 5 Height (Inches): 8.00 Weight (Pounds): 140 HEENT: other - intubated Respiratory/Chest: lungs clear Cardiovascular: normal rate, regular rhythm, no gallop/murmur Abdomen: soft, non tender Extremities: no edema, other - right arm PICC Laboratory Tests Test 10/03/19 16:00 10/03/19 18:45 10/04/19 08:57 10/04/19 09:10 Lactic Acid Level 4.10 mmol/L (0.4-2.0) H 4.00 mmol/L (0.66-2.22) H Arterial Blood pH 7.502 (7.350-7.450) Arterial Blood Partial Pressure CO2 22.2 mmHg (35.0-45.0) *L Arterial Blood Partial Pressure O2 109.0 mmHg (75.0-100.0) H Arterial Blood HCO3 17.0 mmol/L (22.0-26.0) *L Arterial Blood Oxygen Saturation 98.3 % (95-100) Arterial Blood Base Excess -5.0 (-2-2) L Giovanny Test Positive White Blood Count 31.8 K/UL (4.8-10.8) *H Red Blood Count 2.59 M/UL (4.70-6.10) L Hemoglobin 8.7 G/DL (14.2-18.0) L Hematocrit 26.1 % (42.0-52.0) L Mean Corpuscular Volume 101 FL (80-99) H Mean Corpuscular Hemoglobin 33.8 PG (27.0-31.0) H Mean Corpuscular Hemoglobin Concent 33.5 G/DL (32.0-36.0) Red Cell Distribution Width 15.0 % (11.6-14.8) H Platelet Count 67 K/UL (150-450) #L Mean Platelet Volume 7.4 FL (6.5-10.1) Neutrophils (%) (Auto) % (45.0-75.0) Lymphocytes (%) (Auto) % (20.0-45.0) Monocytes (%) (Auto) % (1.0-10.0) Eosinophils (%) (Auto) % (0.0-3.0) Basophils (%) (Auto) % (0.0-2.0) Differential Total Cells Counted 100 Neutrophils % (Manual) 93 % (45-75) H Lymphocytes % (Manual) 2 % (20-45) L Monocytes % (Manual) 2 % (1-10) Eosinophils % (Manual) 0 % (0-3) Basophils % (Manual) 0 % (0-2) Band Neutrophils 3 % (0-8) Platelet Estimate Decreased L Platelet Morphology Normal Hypochromasia 1+ Anisocytosis 1+ Macrocytosis 1+ Prothrombin Time 14.2 SEC (9.30-11.50) H Prothromb Time International Ratio 1.4 (0.9-1.1) H Activated Partial Thromboplast Time 40 SEC (23-33) H Fibrinogen 224 mg/dL (200-400) Sodium Level 135 MMOL/L (136-145) L Potassium Level 4.4 MMOL/L (3.5-5.1) Chloride Level 100 MMOL/L (98-107) Carbon Dioxide Level 24 MMOL/L (21-32) Anion Gap 11 mmol/L (5-15) Blood Urea Nitrogen 101 mg/dL (7-18) H Creatinine 2.3 MG/DL (0.55-1.30) H Estimat Glomerular Filtration Rate 29.2 mL/min (>60) Glucose Level 129 MG/DL (74-106) H Calcium Level 7.0 MG/DL (8.5-10.1) L Total Bilirubin 2.0 MG/DL (0.2-1.0) H Direct Bilirubin 1.5 MG/DL (0.0-0.3) H Aspartate Amino Transf (AST/SGOT) 48 U/L (15-37) H Alanine Aminotransferase (ALT/SGPT) 38 U/L (12-78) Alkaline Phosphatase 136 U/L (46-116) H Total Protein 5.9 G/DL (6.4-8.2) L Albumin 1.7 G/DL (3.4-5.0) L Globulin 4.2 g/dL Albumin/Globulin Ratio 0.4 (1.0-2.7) L Random Vancomycin Level 8.0 ug/mL Current Medications Medications (Trade) Dose Ordered Sig/Akash Route PRN Reason Start Time Stop Time Status Last Admin Dose Admin Acetaminophen (Tylenol) 650 mg Q6H PRN NG FEVER 09/30/19 10:30 10/30/19 10:29 Amiodarone HCl 900 mg/Dextrose 500 ml @ 16.66 mls/ hr Q24H IV 10/03/19 21:15 10/04/19 21:14 10/03/19 21:31 Chlorhexidine Gluconate (Tammy-Hex 2%) 1 applic DAILY@2000 TOPIC 10/04/19 20:00 11/03/19 19:59 Dextrose/Sodium Chloride 1,000 ml @ 75 mls/hr [id number] IV 10/02/19 08:15 11/01/19 08:14 10/03/19 23:19 Diphenhydramine HCl (Benadryl) 25 mg Q6H PRN ORAL Itching 09/28/19 13:25 10/28/19 13:24 09/29/19 10:09 Fentanyl Citrate 1000 mcg/Sodium Chloride 100 ml @ 0 mls/hr Q24H IV 09/29/19 12:57 10/05/19 12:56 09/28/19 14:08 Heparin Sodium/ Sodium Chloride (Heparin 1000 units/500ml Premix) 1,000 unit ONCE PRN IV PICC LINE 10/04/19 08:00 10/05/19 23:59 Hydrocortisone (Solu-CORTEF) 100 mg DAILY IV 10/05/19 09:00 11/04/19 08:59 Lidocaine HCl (Xylocaine 1% 30ml) 30 ml ONCE PRN INJ PICC LINE 10/04/19 08:00 10/05/19 23:59 Lorazepam (Ativan 2mg/ml 1ml) 1 mg Q4H PRN IV For Anxiety 09/28/19 13:25 10/05/19 13:24 Multivitamins (Multivitamins) 1 tab DAILY ORAL 09/29/19 09:00 10/22/19 08:59 10/04/19 08:58 Nicotine (Nicoderm) 1 patch Q24H TDERMAL 09/29/19 01:00 10/29/19 00:59 10/04/19 01:14 Norepinephrine Bitartrate 8 mg/ Dextrose 558 ml @ 0 mls/hr Q24H IV 10/04/19 00:30 11/03/19 00:29 Pantoprazole (Protonix) 40 mg ACBREAKFAST ORAL 09/29/19 06:30 10/22/19 08:59 10/04/19 06:31 Sodium Chloride 500 ml @ 999 mls/hr Q31M PRN IV SBP <95 10/03/19 21:15 11/02/19 21:14 10/03/19 23:20 Sodium Chloride (NaCl) 1 gm THREE TIMES A DAY ORAL 10/03/19 10:00 11/02/19 09:59 10/04/19 08:58 Thiamine HCl (Vitamin B1) 100 mg DAILY ORAL 09/29/19 09:00 10/22/19 08:59 10/04/19 08:58 Tigecycline 50 mg/ Sodium Chloride 110 ml @ 220 mls/hr EVERY 12 HOURS IVPB 10/02/19 21:00 10/09/19 20:59 10/04/19 08:58 Vancomycin HCl (Vanco rx to dose) 1 ea DAILY PRN MISC Per rx protocol 10/02/19 10:30 11/01/19 10:29 Vancomycin HCl 1 gm/Dextrose 275 ml @ 183.708 mls/hr ONCE ONCE IVPB 10/04/19 12:00 10/04/19 13:29 Morena Erazo MD Oct 04, 2019 11:54
[2019-10-04] MEDS ORDERED: Vancomycin 1gm/D5W 275ml IVPB ONE ×2 (12:00)
--- NOTE | 2019-10-04 12:00 | NUR ---
NURSE NOTES: Pt repositioned, oral care provided, no acute distress noted. Head to tow assessment performed and charted. Pt cleaned and linens changed. Will continue to monitor.
[2019-10-04] MEDS: D5NS 1,000 ML IV SCH (12:49)
--- NOTE | 2019-10-04 13:13 | Diagnostic Imaging Report ---
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 The right upper extremity was prepped with alcohol. All elements of maximal sterile barrier technique were followed including usage of a cap, mask, sterile gown, sterile gloves, hand hygiene and a large sterile sheet. Sonographic evaluation of the upper extremity was performed demonstrating a patent and compressible basilic vein. Access was obtained under real-time ultrasound guidance (with utilization of sterile gel and sterile probe cover) and digital image was saved and archived. An .018 wire was introduced. Needle exchanged for a 5 [place] peel-away sheath. Measurements were obtained. A 5 [place] dual-lumen Power PICC line catheter was cut to 43 cm and introduced over the wire. Peel-away sheath and wire were removed.Catheter was secured to the skin using 2-0 Prolene suture. Both ports aspirate and flush easily. Post procedure chest x-ray demonstrates good position of the PICC line catheter within the SVC. Total fluoroscopic time: seconds. Impression: Successful placement of an upper extremity PICC line catheter
--- NOTE | 2019-10-04 13:42 | Diagnostic Imaging Report ---
Indication: Dyspnea Comparison: 09/28/2019 A single view chest radiograph was obtained. Findings: Patchy airspace and interstitial opacities appear worse compared to the prior study. Endotracheal tube remains in good position as does nasogastric tube. Heart size is stable. IMPRESSION: Worsening infiltrates versus pulmonary edema
--- NOTE | 2019-10-04 14:00 | NUR ---
NURSE NOTES: Pt repositioned, oral care performed, no acute distress noted. Pt still in Afib. Will continue to monitor.
--- NOTE | 2019-10-04 16:00 | NUR ---
NURSE NOTES: Pt repositioned and oral care performed. 1 BM noted, pt cleaned and linens changed. No acute distress noted at this time. Head to toe assessment performed and charted. Pt still noted in Afib.
--- NOTE | 2019-10-04 16:50 | NUR ---
RESPIRATORY NOTE: Received pt on ordered vent settings. Pt airway is patent and secured. Vent alarms are on and audible. Vent is plugged ursula red outlet. Will monitor pt progress.
--- NOTE | 2019-10-04 18:00 | NUR ---
Pt repositioned and oral care performed. PICC line dressing changed. intact and patent. Femoral line discontinued per Dr. Leavitt. Occlusive dressing and pressure applied at site for 10 minutes. No notable bleeding. Pt tolerated procedure with no acute distress. Will continue to monitor. Addendum: 10/04/19 at 1849 by Breann Spaulding RN Late entry: pt now noted in sinus rhythm. Will continue to monitor.
--- NOTE | 2019-10-04 19:00 | NUR ---
NURSE NOTES: Spoke to Dr. Gomez over phone regarding pt converting to SR. Per Dr Gomez, continue amiodarone drip until further notice.
--- NOTE | 2019-10-04 19:19 | NUR ---
HAND-OFF: Report given to REINALDO Blunt. Pt remains in sinus rhythm. Will continue amiodarone drip per Dr. Gomez. Pt getting venous duplex at this time. Endorsed to REINALDO Blunt pt to be placed on bilat lower extremity SCDs when venous duplex results come back negative. Pt in no acute distress.
[2019-10-04] MEDS ORDERED: NS 275ml ONE ×3 (19:22→19:35)
[2019-10-04] MEDS ORDERED: Tubing IV Blood Pump IV ONE (19:22)
[2019-10-04] MEDS ORDERED: D5W 275ml ONE (19:23)
[2019-10-04] MEDS ORDERED: NS 500ML ONE (19:23)
[2019-10-04] MEDS ORDERED: Tubing IV Secondary IV ONE ×2 (19:23→19:35)
--- NOTE | 2019-10-04 19:23 | NUR ---
NURSE NOTES: Received pt with venous duppler on progress , ,pt is awake orally intubated on ac mode,SR on the monitor, bp stable, afebrile bilateral soft wrist restraints on for safety to avoid self extubation,Tolerated OGT fdg at this time, HOB kept elevated. On aspiration precaution. Both arms still wheeping with fluids with 2-3+ edema as well as with scrotal edema, elevated affected part with pillows, Pt also has DTI sacral area with optifoam drsg . On P200 mattress turned q 2hrs prn with good skin care done. Will continue to monitor.
[2019-10-04] MEDS: Dyna-Hex 2% Top Sol 2oz TOPIC SCH (20:21)
[2019-10-04] MEDS ORDERED: Amiodarone 900 MG in D5W 500ml 482 ML IV SCH (21:00)
--- NOTE | 2019-10-04 21:00 | NUR ---
NURSE NOTES: Venous duppler were negative. SCD placed.
--- NOTE | 2019-10-04 23:00 | NUR ---
NURSE NOTES: NSR rate of 80 at this time. 02 marcie 100%- Oral care done.
[2019-10-05] VITALS (39 sets, daily range): BP systolic 88–107; BP diastolic 36–49
--- NOTE | 2019-10-05 | NUR ---
NURSE NOTES: NGT fdg on hold , due to lg residual.
[2019-10-05] MEDS: Norepinephrine Bitartrate 8 MG in D5W 500ml 550 ML IV SCH (00:30)
--- NOTE | 2019-10-05 01:00 | NUR ---
NURSE NOTES: Resting well at this time , no dysrhythmia noted.
[2019-10-05] MEDS: D5NS 1,000 ML IV SCH ×2 (01:56→15:55)
--- NOTE | 2019-10-05 03:00 | NUR ---
NURSE NOTES: Pt have another stool,brownish, lg in amt., cleaned up pt. Condition unchanged
--- NOTE | 2019-10-05 03:00 | Progress Note ---
DATE: 10/04/2019 CARDIOLOGY PROGRESS NOTE SUBJECTIVE: The patient remains intubated. He is on amiodarone drip. Heart rate has improved and sinus rhythm is intermittently restored. The patient is off pressors. OBJECTIVE: VITAL SIGNS: Blood pressure 101/50, pulse 101, respiratory rate 23, and afebrile, T-max 99. LUNGS: Bilateral rales. CARDIAC: Regular rhythm. Rapid rate. Normal S1 and S2. ABDOMEN: Soft. EXTREMITIES: Trace dependent edema. LABORATORY DATA: White count 31.8. Sodium 135, potassium 4.4, bicarb 24, BUN 101, and creatinine 2.3. Albumin 1.7. ABG - 7.50, 22, 109. IMPRESSION: 1. Methicillin-resistant Staphylococcus aureus bacteremia. 2. Increased risk for endocarditis. 3. KPC urinary tract infection. 4. Sepsis with shock. 5. Paroxysmal supraventricular tachyarrhythmias. 6. Paroxysmal atrial fibrillation. 7. Respiratory failure. 8. Hypoxia. 9. Remains critical and guarded. PLAN: 1. Review chest x-ray. 2. Antimicrobials per Infectious Disease consultant intern. 3. Transition from IV to oral "amiodarone". 4. Taper oxygen requirement as able. 5. Off pressors. 6. Steroid taper to follow. Ar Gomez M.D. DR: SAMM JOB#: [id number] CC:
--- NOTE | 2019-10-05 05:00 | NUR ---
NURSE NOTES: Pt threw uup fdg like liquid- connected OGT to low suction draining 200ml fdg colored liquid notify Dr Leavitt.
[2019-10-05 05:35] LABS: HEMATOCRIT 26.6 % (42.0-52.0); HEMOGLOBIN 8.7 G/DL (14.2-18.0); MEAN CORPUSCULAR VOLUME 102 FL (80-99); PLATELET COUNT 43 K/UL (150-450); RED BLOOD COUNT 2.61 M/UL (4.70-6.10); RED CELL DISTRIBUTION WIDTH 14.9 % (11.6-14.8)
[2019-10-05 05:59] LABS: WHITE BLOOD COUNT 39.9 K/UL (4.8-10.8)
[2019-10-05 06:12] LABS: ALANINE AMINOTRANSFERASE 33 U/L (12-78); ALBUMIN 1.6 G/DL (3.4-5.0); ALBUMIN/GLOBULIN RATIO 0.4 (1.0-2.7); ALKALINE PHOSPHATASE 158 U/L (46-116); ANION GAP 11 mmol/L (5-15); ASPARTATE AMINO TRANSFERASE 43 U/L (15-37); BLOOD UREA NITROGEN 109 mg/dL (7-18); CALCIUM 6.8 MG/DL (8.5-10.1); CARBON DIOXIDE 23 MMOL/L (21-32); CHLORIDE 103 MMOL/L (98-107); CREATININE 2.2 MG/DL (0.55-1.30); POTASSIUM 4.2 MMOL/L (3.5-5.1); SODIUM 137 MMOL/L (136-145)
[2019-10-05 06:15] LABS: BILIRUBIN,DIRECT 1.1 MG/DL (0.0-0.3)
--- NOTE | 2019-10-05 06:40 | NUR ---
NURSE NOTES: Dr Leavitt was here and was aware with NGT fdg high residual, pts vomiting and elevated WBC- No orders given.
--- NOTE | 2019-10-05 07:24 | NUR ---
HAND-OFF: Report given to Rigo NAJERA.
--- NOTE | 2019-10-05 07:25 | NUR ---
NURSE NOTES: Report received from REINALDO Narvaez. Pt is sleeping in bed. Opens eyes spontaneously. Lethargic but able to wake up and answer for simple questions. Sinus rhythm on director of cardiac cath lab. ETT 7.5/24cm at lip line. AC 14, TV 480, P 10, FiO2 60%. O2 sat 93-97%. OGT in place and connected to suction for now, draining yellow residual. Condom catheter in place draining to gravity. Scrotal edema noted. Bilateral upper extremities mildly edematous and weeping. ALVINO PICC line patent and asymptomatic. D5NS is running at 75cc/hr. Bed in lowest position. Side rails up x3. Will resume plan of care.
--- NOTE | 2019-10-05 08:32 | Pulmonology Progress Note ---
Assessment/Plan Assessment/Plan Impression - MRSA Pneumonia - Persistent leucocytosis - Hypoxic respiratory Failure - CHFpEF - Atrial Fibrillation - Cirrhosis, h/o ETOH Use, ascites s/p Paracentesis - Homeless - Enterobacter UTI s/p rx - Thrombocytopenia - Anasarca - tachycardia - overwhelming sepsis +++ positive cultures PLAN still on high fio2- try to decrease currently on vent on hydrocortisone and taper as able consider bedside bronchoscopy if able once more stable; will plan for this week if able currently unstable and extremely critical remains ill taper oxygen and monitor CXR and ABG routine in ICU prognosis remains poor still too ill for intervention impression, plan, and exam edited and reviewed in detail care discussed with RN Subjective ROS Limited/Unobtainable: Yes Allergies: Coded Allergies: PENICILLINS (Verified Allergy, Intermediate, Rash, 09/01/19) Patient stated at this time Subjective care noted on vent on full vent support/ cxr worse O2 at 60% Objective Last 24 Hour Vital Signs Date Time Temp Pulse Resp B/P (MAP) Pulse Ox O2 Delivery O2 Flow Rate FiO2 10/05/19 07:00 81 23 105/40 (61) 98 10/05/19 06:40 82 20 60 10/05/19 06:30 82 23 96/37 (56) 98 10/05/19 06:00 81 22 104/40 (61) 98 10/05/19 05:36 81 21 60 10/05/19 05:30 81 21 107/40 (62) 99 10/05/19 05:00 84 24 100/41 (60) 98 10/05/19 04:30 83 22 100/45 (63) 97 10/05/19 04:00 Mechanical Ventilator Mechanical Ventilator 10/05/19 04:00 60 10/05/19 04:00 98.8 82 21 99/44 (62) 98 10/05/19 04:00 80 10/05/19 03:30 82 22 103/46 (65) 95 10/05/19 03:03 84 22 60 10/05/19 03:00 83 21 99/42 (61) 97 10/05/19 02:30 84 18 99/42 (61) 96 10/05/19 02:00 80 18 97/41 (59) 96 10/05/19 01:30 82 19 97/42 (60) 97 10/05/19 01:05 82 22 60 10/05/19 01:00 81 19 97/41 (59) 97 10/05/19 00:30 100/43 10/05/19 00:30 83 22 100/43 (62) 96 10/05/19 00:00 98.0 84 22 102/49 (66) 98 10/05/19 00:00 60 10/05/19 00:00 79 10/05/19 00:00 60 10/05/19 00:00 Mechanical Ventilator Mechanical Ventilator 10/04/19 23:30 83 20 100/45 (63) 98 10/04/19 23:11 84 23 60 10/04/19 23:00 84 20 102/42 (62) 98 10/04/19 22:30 84 21 102/46 (64) 98 10/04/19 22:00 84 21 103/46 (65) 98 10/04/19 21:30 85 21 105/49 (67) 98 10/04/19 21:29 85 19 60 10/04/19 21:00 82 17 103/43 (63) 98 10/04/19 20:30 81 18 98/42 (60) 98 10/04/19 20:00 Mechanical Ventilator Mechanical Ventilator 10/04/19 20:00 60 10/04/19 20:00 80 10/04/19 20:00 98.0 82 19 105/45 (65) 98 10/04/19 19:00 82 17 103/43 (63) 98 10/04/19 19:00 84 21 60 10/04/19 18:30 86 22 104/53 (70) 96 10/04/19 18:00 87 21 103/46 (65) 98 10/04/19 17:30 109 18 100/52 (68) 98 10/04/19 17:00 109 17 99/56 (70) 98 10/04/19 16:40 103 22 60 10/04/19 16:30 109 22 103/57 (72) 96 10/04/19 16:00 60 10/04/19 16:00 97.4 110 17 99/53 (68) 98 10/04/19 16:00 Mechanical Ventilator Mechanical Ventilator 10/04/19 16:00 114 10/04/19 15:30 108 17 102/55 (71) 97 10/04/19 15:25 107 22 60 10/04/19 15:00 108 21 101/56 (71) 99 10/04/19 14:30 113 21 104/55 (71) 97 10/04/19 14:00 108 21 103/55 (71) 98 10/04/19 13:30 108 25 101/54 (70) 97 10/04/19 13:01 105 20 60 10/04/19 13:00 107 22 98/56 (70) 98 10/04/19 12:30 112 25 102/57 (72) 96 10/04/19 12:00 97.3 111 25 105/59 (74) 94 10/04/19 12:00 Mechanical Ventilator Mechanical Ventilator 10/04/19 12:00 100 10/04/19 11:30 112 24 97/57 (70) 96 10/04/19 11:18 104 27 40 10/04/19 11:15 60 10/04/19 11:00 112 27 100/57 (71) 96 10/04/19 11:00 50 10/04/19 10:30 110 27 95/53 (67) 97 10/04/19 10:15 107 26 96/56 (69) 97 10/04/19 10:00 106 30 94/57 (69) 96 10/04/19 09:30 112 25 98/47 (64) 95 10/04/19 09:00 113 27 99/57 (71) 96 10/04/19 08:57 106 28 70 10/04/19 08:50 60 Intake and Output 10/04/19 10/05/19 18:59 06:59 Intake Total 1766.086 ml 1094.94 ml Output Total 1285 ml 696 ml Balance 481.086 ml 398.94 ml Free Water 25 ml IV Total 1501.086 ml 974.94 ml Tube Feeding 240 ml 120 ml Output Urine Total 1285 ml 495 ml Gastric Drainage Total 200 ml Emesis 1 ml # Bowel Movements 4 6 Objective WDWN NAD coarse breath sounds bilaterally without rhonchi or wheeze [id number] without MRG NABS nontender no HSM some distention no CC some edema nonfocal sedated Laboratory Tests 10/04/19 08:57: Arterial Blood pH 7.502H, Arterial Blood Partial Pressure CO2 22.2*L, Arterial Blood Partial Pressure O2 109.0H, Arterial Blood HCO3 17.0*L, Arterial Blood Oxygen Saturation 98.3, Arterial Blood Base Excess -5.0L, Giovanny Test Positive 10/04/19 09:10: White Blood Count 31.8*H, Red Blood Count 2.59L, Hemoglobin 8.7L, Hematocrit 26.1L, Mean Corpuscular Volume 101H, Mean Corpuscular Hemoglobin 33.8H, Mean Corpuscular Hemoglobin Concent 33.5, Red Cell Distribution Width 15.0H, Platelet Count 67#L, Mean Platelet Volume 7.4, Neutrophils (%) (Auto) , Lymphocytes (%) (Auto) , Monocytes (%) (Auto) , Eosinophils (%) (Auto) , Basophils (%) (Auto) , Differential Total Cells Counted 100, Neutrophils % ( Manual) 93H, Lymphocytes % (Manual) 2L, Monocytes % (Manual) 2, Eosinophils % ( Manual) 0, Basophils % (Manual) 0, Band Neutrophils 3, Platelet Estimate DecreasedL, Platelet Morphology Normal, Hypochromasia 1+, Anisocytosis 1+, Macrocytosis 1+, Prothrombin Time 14.2H, Prothromb Time International Ratio 1.4H , Activated Partial Thromboplast Time 40H, Fibrinogen 224, Sodium Level 135L, Potassium Level 4.4, Chloride Level 100, Carbon Dioxide Level 24, Anion Gap 11, Blood Urea Nitrogen 101H, Creatinine 2.3H, Estimat Glomerular Filtration Rate 29.2, Glucose Level 129H, Calcium Level 7.0L, Total Bilirubin 2.0H, Direct Bilirubin 1.5H, Aspartate Amino Transf (AST/SGOT) 48H, Alanine Aminotransferase (ALT/SGPT) 38, Alkaline Phosphatase 136H, Total Protein 5.9L, Albumin 1.7L, Globulin 4.2, Albumin/Globulin Ratio 0.4L, Random Vancomycin Level 8.0 10/05/19 04:30: White Blood Count 39.9*H, Red Blood Count 2.61L, Hemoglobin 8.7L, Hematocrit 26.6L, Mean Corpuscular Volume 102H, Mean Corpuscular Hemoglobin 33.6H, Mean Corpuscular Hemoglobin Concent 32.9, Red Cell Distribution Width 14.9H, Platelet Count 43L, Mean Platelet Volume 7.6, Neutrophils (%) (Auto) , Lymphocytes (%) (Auto) , Monocytes (%) (Auto) , Eosinophils (%) (Auto) , Basophils (%) (Auto) , Differential Total Cells Counted 100, Neutrophils % ( Manual) 92H, Lymphocytes % (Manual) 4L, Monocytes % (Manual) 3, Eosinophils % ( Manual) 0, Basophils % (Manual) 0, Band Neutrophils 1, Platelet Estimate DecreasedL, Platelet Morphology Normal, Sodium Level 137, Potassium Level 4.2, Chloride Level 103, Carbon Dioxide Level 23, Anion Gap 11, Blood Urea Nitrogen 109H, Creatinine 2.2H, Estimat Glomerular Filtration Rate 30.7, Glucose Level 123H, Calcium Level 6.8L, Total Bilirubin 2.0H, Direct Bilirubin 1.1H, Aspartate Amino Transf (AST/SGOT) 43H, Alanine Aminotransferase (ALT/SGPT) 33, Alkaline Phosphatase 158H, Total Protein 5.8L, Albumin 1.6L, Globulin 4.2, Albumin/Globulin Ratio 0.4L, Magnesium Level 1.9, Pro-B-Type Natriuretic Peptide [id number] Current Medications Medications (Trade) Dose Ordered Sig/Akash Route PRN Reason Start Time Stop Time Status Last Admin Dose Admin Acetaminophen (Tylenol) 650 mg Q6H PRN NG FEVER 09/30/19 10:30 10/30/19 10:29 Amiodarone HCl (Cordarone) 200 mg EVERY 12 HOURS GT 10/05/19 09:00 11/04/19 08:59 Chlorhexidine Gluconate (Tammy-Hex 2%) 1 applic DAILY@2000 TOPIC 10/04/19 20:00 11/03/19 19:59 10/04/19 20:21 Dextrose/Sodium Chloride 1,000 ml @ 75 mls/hr [id number] IV 10/02/19 08:15 11/01/19 08:14 10/05/19 01:56 Diphenhydramine HCl (Benadryl) 25 mg Q6H PRN ORAL Itching 09/28/19 13:25 10/28/19 13:24 09/29/19 10:09 Fentanyl Citrate 1000 mcg/Sodium Chloride 100 ml @ 0 mls/hr Q24H IV 09/29/19 12:57 10/05/19 12:56 09/28/19 14:08 Heparin Sodium/ Sodium Chloride (Heparin 1000 units/500ml Premix) 1,000 unit ONCE PRN IV PICC LINE 10/04/19 08:00 10/05/19 23:59 Hydrocortisone (Solu-CORTEF) 100 mg DAILY IV 10/05/19 09:00 11/04/19 08:59 Lidocaine HCl (Xylocaine 1% 30ml) 30 ml ONCE PRN INJ PICC LINE 10/04/19 08:00 10/05/19 23:59 Lorazepam (Ativan 2mg/ml 1ml) 1 mg Q4H PRN IV For Anxiety 09/28/19 13:25 10/05/19 13:24 Multivitamins (Multivitamins) 1 tab DAILY ORAL 09/29/19 09:00 10/22/19 08:59 10/04/19 08:58 Nicotine (Nicoderm) 1 patch Q24H TDERMAL 09/29/19 01:00 10/29/19 00:59 10/05/19 00:51 Norepinephrine Bitartrate 8 mg/ Dextrose 558 ml @ 0 mls/hr Q24H IV 10/04/19 00:30 11/03/19 00:29 Pantoprazole (Protonix) 40 mg ACBREAKFAST ORAL 09/29/19 06:30 10/22/19 08:59 10/04/19 06:31 Sodium Chloride 500 ml @ 999 mls/hr Q31M PRN IV SBP <95 10/03/19 21:15 11/02/19 21:14 10/03/19 23:20 Sodium Chloride (NaCl) 1 gm THREE TIMES A DAY ORAL 10/03/19 10:00 11/02/19 09:59 10/04/19 17:24 Thiamine HCl (Vitamin B1) 100 mg DAILY ORAL 09/29/19 09:00 10/22/19 08:59 10/04/19 08:58 Tigecycline 50 mg/ Sodium Chloride 110 ml @ 220 mls/hr EVERY 12 HOURS IVPB 10/02/19 21:00 10/09/19 20:59 10/04/19 21:15 Vancomycin HCl (Vanco rx to dose) 1 ea DAILY PRN MISC Per rx protocol 10/02/19 10:30 11/01/19 10:29 Simon Lopez MD Oct 05, 2019 08:32
[2019-10-05] MEDS ORDERED: Hydrocortisone 100mg Inj IV SCH (09:00)
[2019-10-05] MEDS: Thiamine 100mg tab ORAL SCH (09:21)
[2019-10-05] MEDS: Amiodarone 200mg tab GT SCH ×2 (09:21→20:39)
[2019-10-05] MEDS: Sodium Chloride 1gm Tab ORAL SCH ×3 (09:21→17:50)
--- NOTE | 2019-10-05 09:26 | Diagnostic Imaging Report ---
Indication: Bilateral leg pain Technique: Grayscale and duplex images of the bilateral lower extremity veins Comparison: none Findings: Bilaterally, grayscale and duplex images demonstrate no evidence of intraluminal thrombus. Normal phasic Doppler waveforms, demonstrating normal augmentation response and no evidence of valvular insufficiency. Impression: Negative
--- NOTE | 2019-10-05 09:30 | NUR ---
NURSE NOTES: Turned and repositioned pt. Oral care done. Pt is lethargic but able to wake up to tactile stimuli. Temp 97.7 ax. Continued blanket on.
[2019-10-05] MEDS: Tigecycline 50 MG in NS 110 ML IVPB SCH ×2 (09:37→20:39)
--- NOTE | 2019-10-05 10:30 | NUR ---
NURSE NOTES: Notified Dr Erazo regarding elevated WBC. Awaiting new orders.
--- NOTE | 2019-10-05 11:00 | NUR ---
NURSE NOTES: Amiodarone drip stopped after the first dose of PO Amiodarone. SR with HR 80's noted.
--- NOTE | 2019-10-05 11:07 | Infectious Diseases Prog Note ---
Assessment/Plan Assessment/Plan antibiotics : vancomycin iv, tygacil A 1. MRSA pneumonia 2. respiratory failure 3. klebsiella UTI 4. cirrhosis 5. ascites s/p paracentesis no SBP 6. thrombocytopenia improving 7. leucocytosis likely secondary to steroids 8. renal failure improving 9. MRSA sepsis P 1. continue iv vancomycin, tygacil 2. sputum culture 3. start meropenem 4. will follow up cultures Subjective ROS Limited/Unobtainable: Yes Allergies: Coded Allergies: PENICILLINS (Verified Allergy, Intermediate, Rash, 09/01/19) Patient stated at this time Objective Vital Signs Last 24 Hour Vital Signs Date Time Temp Pulse Resp B/P (MAP) Pulse Ox O2 Delivery O2 Flow Rate FiO2 10/05/19 10:00 81 19 99/38 (58) 94 10/05/19 09:30 82 21 99/36 (57) 96 10/05/19 09:00 83 21 105/41 (62) 95 10/05/19 08:30 80 18 103/40 (61) 100 10/05/19 08:30 79 18 50 10/05/19 08:30 50 10/05/19 08:09 81 10/05/19 08:00 97.0 80 20 100/41 (60) 99 10/05/19 08:00 60 10/05/19 08:00 Mechanical Ventilator Mechanical Ventilator 10/05/19 07:30 82 21 103/40 (61) 98 10/05/19 07:00 81 23 105/40 (61) 98 10/05/19 06:40 82 20 60 10/05/19 06:30 82 23 96/37 (56) 98 10/05/19 06:00 81 22 104/40 (61) 98 10/05/19 05:36 81 21 60 10/05/19 05:30 81 21 107/40 (62) 99 10/05/19 05:00 84 24 100/41 (60) 98 10/05/19 04:30 83 22 100/45 (63) 97 10/05/19 04:00 Mechanical Ventilator Mechanical Ventilator 10/05/19 04:00 60 10/05/19 04:00 98.8 82 21 99/44 (62) 98 10/05/19 04:00 80 10/05/19 03:30 82 22 103/46 (65) 95 10/05/19 03:03 84 22 60 1/21/20 03:00 83 21 99/42 (61) 97 10/05/19 02:30 84 18 99/42 (61) 96 10/05/19 02:00 80 18 97/41 (59) 96 10/05/19 01:30 82 19 97/42 (60) 97 10/05/19 01:05 82 22 60 10/05/19 01:00 81 19 97/41 (59) 97 10/05/19 00:30 100/43 10/05/19 00:30 83 22 100/43 (62) 96 10/05/19 00:00 98.0 84 22 102/49 (66) 98 10/05/19 00:00 60 10/05/19 00:00 79 10/05/19 00:00 60 10/05/19 00:00 Mechanical Ventilator Mechanical Ventilator 10/04/19 23:30 83 20 100/45 (63) 98 10/04/19 23:11 84 23 60 10/04/19 23:00 84 20 102/42 (62) 98 10/04/19 22:30 84 21 102/46 (64) 98 10/04/19 22:00 84 21 103/46 (65) 98 10/04/19 21:30 85 21 105/49 (67) 98 10/04/19 21:29 85 19 60 10/04/19 21:00 82 17 103/43 (63) 98 10/04/19 20:30 81 18 98/42 (60) 98 10/04/19 20:00 Mechanical Ventilator Mechanical Ventilator 10/04/19 20:00 60 10/04/19 20:00 80 10/04/19 20:00 98.0 82 19 105/45 (65) 98 10/04/19 19:00 82 17 103/43 (63) 98 10/04/19 19:00 84 21 60 10/04/19 18:30 86 22 104/53 (70) 96 10/04/19 18:00 87 21 103/46 (65) 98 10/04/19 17:30 109 18 100/52 (68) 98 10/04/19 17:00 109 17 99/56 (70) 98 10/04/19 16:40 103 22 60 10/04/19 16:30 109 22 103/57 (72) 96 10/04/19 16:00 60 10/04/19 16:00 97.4 110 17 99/53 (68) 98 10/04/19 16:00 Mechanical Ventilator Mechanical Ventilator 10/04/19 16:00 114 10/04/19 15:30 108 17 102/55 (71) 97 10/04/19 15:25 107 22 60 10/04/19 15:00 108 21 101/56 (71) 99 10/04/19 14:30 113 21 104/55 (71) 97 10/04/19 14:00 108 21 103/55 (71) 98 10/04/19 13:30 108 25 101/54 (70) 97 10/04/19 13:01 105 20 60 10/04/19 13:00 107 22 98/56 (70) 98 10/04/19 12:30 112 25 102/57 (72) 96 10/04/19 12:00 97.3 111 25 105/59 (74) 94 10/04/19 12:00 Mechanical Ventilator Mechanical Ventilator 10/04/19 12:00 100 10/04/19 11:30 112 24 97/57 (70) 96 10/04/19 11:18 104 27 40 10/04/19 11:15 60 Height (Feet): 5 Height (Inches): 8.00 Weight (Pounds): 140 HEENT: other - intubated Respiratory/Chest: lungs clear Cardiovascular: normal rate, regular rhythm, no gallop/murmur Abdomen: soft, non tender, distended Extremities: no edema, other - right arm PICC Laboratory Tests Test 10/05/19 04:30 White Blood Count 39.9 K/UL (4.8-10.8) *H Red Blood Count 2.61 M/UL (4.70-6.10) L Hemoglobin 8.7 G/DL (14.2-18.0) L Hematocrit 26.6 % (42.0-52.0) L Mean Corpuscular Volume 102 FL (80-99) H Mean Corpuscular Hemoglobin 33.6 PG (27.0-31.0) H Mean Corpuscular Hemoglobin Concent 32.9 G/DL (32.0-36.0) Red Cell Distribution Width 14.9 % (11.6-14.8) H Platelet Count 43 K/UL (150-450) L Mean Platelet Volume 7.6 FL (6.5-10.1) Neutrophils (%) (Auto) % (45.0-75.0) Lymphocytes (%) (Auto) % (20.0-45.0) Monocytes (%) (Auto) % (1.0-10.0) Eosinophils (%) (Auto) % (0.0-3.0) Basophils (%) (Auto) % (0.0-2.0) Differential Total Cells Counted 100 Neutrophils % (Manual) 92 % (45-75) H Lymphocytes % (Manual) 4 % (20-45) L Monocytes % (Manual) 3 % (1-10) Eosinophils % (Manual) 0 % (0-3) Basophils % (Manual) 0 % (0-2) Band Neutrophils 1 % (0-8) Platelet Estimate Decreased L Platelet Morphology Normal Sodium Level 137 MMOL/L (136-145) Potassium Level 4.2 MMOL/L (3.5-5.1) Chloride Level 103 MMOL/L (98-107) Carbon Dioxide Level 23 MMOL/L (21-32) Anion Gap 11 mmol/L (5-15) Blood Urea Nitrogen 109 mg/dL (7-18) H Creatinine 2.2 MG/DL (0.55-1.30) H Estimat Glomerular Filtration Rate 30.7 mL/min (>60) Glucose Level 123 MG/DL (74-106) H Calcium Level 6.8 MG/DL (8.5-10.1) L Magnesium Level 1.9 MG/DL (1.8-2.4) Total Bilirubin 2.0 MG/DL (0.2-1.0) H Direct Bilirubin 1.1 MG/DL (0.0-0.3) H Aspartate Amino Transf (AST/SGOT) 43 U/L (15-37) H Alanine Aminotransferase (ALT/SGPT) 33 U/L (12-78) Alkaline Phosphatase 158 U/L (46-116) H Pro-B-Type Natriuretic Peptide 71119 pg/mL (0-125) H Total Protein 5.8 G/DL (6.4-8.2) L Albumin 1.6 G/DL (3.4-5.0) L Globulin 4.2 g/dL Albumin/Globulin Ratio 0.4 (1.0-2.7) L Current Medications Medications (Trade) Dose Ordered Sig/Akash Route PRN Reason Start Time Stop Time Status Last Admin Dose Admin Acetaminophen (Tylenol) 650 mg Q6H PRN NG FEVER 09/30/19 10:30 10/30/19 10:29 Amiodarone HCl (Cordarone) 200 mg EVERY 12 HOURS GT 10/05/19 09:00 11/04/19 08:59 10/05/19 09:21 Chlorhexidine Gluconate (Tammy-Hex 2%) 1 applic DAILY@2000 TOPIC 10/04/19 20:00 11/03/19 19:59 10/04/19 20:21 Dextrose/Sodium Chloride 1,000 ml @ 75 mls/hr [id number] IV 10/02/19 08:15 11/01/19 08:14 10/05/19 01:56 Diphenhydramine HCl (Benadryl) 25 mg Q6H PRN ORAL Itching 09/28/19 13:25 10/28/19 13:24 09/29/19 10:09 Fentanyl Citrate 1000 mcg/Sodium Chloride 100 ml @ 0 mls/hr Q24H IV 09/29/19 12:57 10/05/19 12:56 09/28/19 14:08 Heparin Sodium/ Sodium Chloride (Heparin 1000 units/500ml Premix) 1,000 unit ONCE PRN IV PICC LINE 10/04/19 08:00 10/05/19 23:59 Hydrocortisone (Solu-CORTEF) 100 mg DAILY IV 10/05/19 09:00 11/04/19 08:59 10/05/19 09:22 Lidocaine HCl (Xylocaine 1% 30ml) 30 ml ONCE PRN INJ PICC LINE 10/04/19 08:00 10/05/19 23:59 Lorazepam (Ativan 2mg/ml 1ml) 1 mg Q4H PRN IV For Anxiety 09/28/19 13:25 10/05/19 13:24 Multivitamins (Multivitamins) 1 tab DAILY ORAL 09/29/19 09:00 10/22/19 08:59 10/05/19 09:21 Nicotine (Nicoderm) 1 patch Q24H TDERMAL 09/29/19 01:00 10/29/19 00:59 10/05/19 00:51 Norepinephrine Bitartrate 8 mg/ Dextrose 558 ml @ 0 mls/hr Q24H IV 10/04/19 00:30 11/03/19 00:29 Pantoprazole (Protonix) 40 mg ACBREAKFAST ORAL 09/29/19 06:30 10/22/19 08:59 10/04/19 06:31 Sodium Chloride 500 ml @ 999 mls/hr Q31M PRN IV SBP <95 10/03/19 21:15 11/02/19 21:14 10/03/19 23:20 Sodium Chloride (NaCl) 1 gm THREE TIMES A DAY ORAL 10/03/19 10:00 11/02/19 09:59 10/05/19 09:21 Thiamine HCl (Vitamin B1) 100 mg DAILY ORAL 09/29/19 09:00 10/22/19 08:59 10/05/19 09:21 Tigecycline 50 mg/ Sodium Chloride 110 ml @ 220 mls/hr EVERY 12 HOURS IVPB 10/02/19 21:00 10/09/19 20:59 10/05/19 09:37 Vancomycin HCl (Vanco rx to dose) 1 ea DAILY PRN MISC Per rx protocol 10/02/19 10:30 11/01/19 10:29 Morena Erazo MD Oct 05, 2019 11:07
[2019-10-05] MEDS: Meropenem 1 GM in NS 55 ML IVPB SCH ×2 (12:38→23:12)
--- NOTE | 2019-10-05 12:57 | Surgery Progress Note ---
Surgery Progress Note Subjective Additional Comments no acute events labs reviewed ill appearing on support Objective Last 24 Hour Vital Signs Date Time Temp Pulse Resp B/P (MAP) Pulse Ox O2 Delivery O2 Flow Rate FiO2 10/05/19 12:00 82 20 104/39 (60) 95 10/05/19 12:00 50 10/05/19 12:00 Mechanical Ventilator Mechanical Ventilator 10/05/19 11:45 82 20 104/40 (61) 95 10/05/19 11:30 97.7 79 17 97/36 (56) 96 10/05/19 11:15 79 17 104/38 (60) 96 10/05/19 11:00 81 20 100/40 (60) 95 10/05/19 10:40 80 23 50 10/05/19 10:30 79 19 104/38 (60) 96 10/05/19 10:00 81 19 99/38 (58) 94 10/05/19 09:30 82 21 99/36 (57) 96 10/05/19 09:00 83 21 105/41 (62) 95 10/05/19 08:30 80 18 103/40 (61) 100 10/05/19 08:30 79 18 50 10/05/19 08:30 50 10/05/19 08:09 81 10/05/19 08:00 97.0 80 20 100/41 (60) 99 10/05/19 08:00 60 10/05/19 08:00 Mechanical Ventilator Mechanical Ventilator 10/05/19 07:30 82 21 103/40 (61) 98 10/05/19 07:00 81 23 105/40 (61) 98 10/05/19 06:40 82 20 60 10/05/19 06:30 82 23 96/37 (56) 98 10/05/19 06:00 81 22 104/40 (61) 98 10/05/19 05:36 81 21 60 10/05/19 05:30 81 21 107/40 (62) 99 10/05/19 05:00 84 24 100/41 (60) 98 10/05/19 04:30 83 22 100/45 (63) 97 10/05/19 04:00 Mechanical Ventilator Mechanical Ventilator 10/05/19 04:00 60 10/05/19 04:00 98.8 82 21 99/44 (62) 98 10/05/19 04:00 80 10/05/19 03:30 82 22 103/46 (65) 95 10/05/19 03:03 84 22 60 10/05/19 03:00 83 21 99/42 (61) 97 10/05/19 02:30 84 18 99/42 (61) 96 10/05/19 02:00 80 18 97/41 (59) 96 10/05/19 01:30 82 19 97/42 (60) 97 10/05/19 01:05 82 22 60 10/05/19 01:00 81 19 97/41 (59) 97 10/05/19 00:30 100/43 10/05/19 00:30 83 22 100/43 (62) 96 10/05/19 00:00 98.0 84 22 102/49 (66) 98 10/05/19 00:00 60 10/05/19 00:00 79 10/05/19 00:00 60 10/05/19 00:00 Mechanical Ventilator Mechanical Ventilator 10/04/19 23:30 83 20 100/45 (63) 98 10/04/19 23:11 84 23 60 10/04/19 23:00 84 20 102/42 (62) 98 10/04/19 22:30 84 21 102/46 (64) 98 10/04/19 22:00 84 21 103/46 (65) 98 10/04/19 21:30 85 21 105/49 (67) 98 10/04/19 21:29 85 19 60 10/04/19 21:00 82 17 103/43 (63) 98 10/04/19 20:30 81 18 98/42 (60) 98 10/04/19 20:00 Mechanical Ventilator Mechanical Ventilator 10/04/19 20:00 60 10/04/19 20:00 80 10/04/19 20:00 98.0 82 19 105/45 (65) 98 10/04/19 19:00 82 17 103/43 (63) 98 10/04/19 19:00 84 21 60 10/04/19 18:30 86 22 104/53 (70) 96 10/04/19 18:00 87 21 103/46 (65) 98 10/04/19 17:30 109 18 100/52 (68) 98 10/04/19 17:00 109 17 99/56 (70) 98 10/04/19 16:40 103 22 60 10/04/19 16:30 109 22 103/57 (72) 96 10/04/19 16:00 60 10/04/19 16:00 97.4 110 17 99/53 (68) 98 10/04/19 16:00 Mechanical Ventilator Mechanical Ventilator 10/04/19 16:00 114 10/04/19 15:30 108 17 102/55 (71) 97 10/04/19 15:25 107 22 60 10/04/19 15:00 108 21 101/56 (71) 99 10/04/19 14:30 113 21 104/55 (71) 97 10/04/19 14:00 108 21 103/55 (71) 98 10/04/19 13:30 108 25 101/54 (70) 97 10/04/19 13:01 105 20 60 10/04/19 13:00 107 22 98/56 (70) 98 I&O Intake and Output 10/04/19 10/05/19 19:00 07:00 Intake Total 1841.086 ml 1074.94 ml Output Total 1190 ml 701 ml Balance 651.086 ml 373.94 ml Free Water 25 ml IV Total 1576.086 ml 974.94 ml Tube Feeding 240 ml 100 ml Output Urine Total 1190 ml 500 ml Gastric Drainage Total 200 ml Emesis 1 ml # Bowel Movements 4 6 Dressing: other Wound: other Drains: other Cardiovascular: RSR Respiratory: decreased breath sounds Abdomen: soft, present bowel sounds Extremities: no cyanosis Laboratory Tests Test 10/05/19 04:30 White Blood Count 39.9 K/UL (4.8-10.8) *H Red Blood Count 2.61 M/UL (4.70-6.10) L Hemoglobin 8.7 G/DL (14.2-18.0) L Hematocrit 26.6 % (42.0-52.0) L Mean Corpuscular Volume 102 FL (80-99) H Mean Corpuscular Hemoglobin 33.6 PG (27.0-31.0) H Mean Corpuscular Hemoglobin Concent 32.9 G/DL (32.0-36.0) Red Cell Distribution Width 14.9 % (11.6-14.8) H Platelet Count 43 K/UL (150-450) L Mean Platelet Volume 7.6 FL (6.5-10.1) Neutrophils (%) (Auto) % (45.0-75.0) Lymphocytes (%) (Auto) % (20.0-45.0) Monocytes (%) (Auto) % (1.0-10.0) Eosinophils (%) (Auto) % (0.0-3.0) Basophils (%) (Auto) % (0.0-2.0) Differential Total Cells Counted 100 Neutrophils % (Manual) 92 % (45-75) H Lymphocytes % (Manual) 4 % (20-45) L Monocytes % (Manual) 3 % (1-10) Eosinophils % (Manual) 0 % (0-3) Basophils % (Manual) 0 % (0-2) Band Neutrophils 1 % (0-8) Platelet Estimate Decreased L Platelet Morphology Normal Sodium Level 137 MMOL/L (136-145) Potassium Level 4.2 MMOL/L (3.5-5.1) Chloride Level 103 MMOL/L (98-107) Carbon Dioxide Level 23 MMOL/L (21-32) Anion Gap 11 mmol/L (5-15) Blood Urea Nitrogen 109 mg/dL (7-18) H Creatinine 2.2 MG/DL (0.55-1.30) H Estimat Glomerular Filtration Rate 30.7 mL/min (>60) Glucose Level 123 MG/DL (74-106) H Calcium Level 6.8 MG/DL (8.5-10.1) L Magnesium Level 1.9 MG/DL (1.8-2.4) Total Bilirubin 2.0 MG/DL (0.2-1.0) H Direct Bilirubin 1.1 MG/DL (0.0-0.3) H Aspartate Amino Transf (AST/SGOT) 43 U/L (15-37) H Alanine Aminotransferase (ALT/SGPT) 33 U/L (12-78) Alkaline Phosphatase 158 U/L (46-116) H Pro-B-Type Natriuretic Peptide 09630 pg/mL (0-125) H Total Protein 5.8 G/DL (6.4-8.2) L Albumin 1.6 G/DL (3.4-5.0) L Globulin 4.2 g/dL Albumin/Globulin Ratio 0.4 (1.0-2.7) L Plan Problems: (1) Sepsis Assessment & Plan: Pt presented hyperpigmentation sacrum with loose dry/ peeling skin. Non -tender when palpated.Scrotum is erythematous. Pt is incontinent of B and B per staff. Condom cath placed on pt by primary nurse. Pt educated on wound prevention and encouraged to frequently turn ,or at least hourly to prevent skin breakdown. No other skin concerns noted. Tx.plan: Apply Moisture Barrier Paste to sacrum. Cover with Optifoam drsg. Change every 3 days and prn. Apply Cavilon Skin Barrier to both heels. Cover each heel with Optifoam drsg. Change every 7 days and prn. Reposition at least every 2hours or as tolerated. Off-load heels with pillow. DAILY ESTIMATED NEEDS: Needs based on Liver, Pulmonary, Critical care 55kg 22-30 kcals/kg 2422-3977 total kcals 1.25-2 g protein/kg 69-110 g total protein 25-30 mL/kg 6221-0553 total fluid mLs NUTRITION DIAGNOSIS: * Swallowing difficulty R/T dysphagia, respiratory status as evidenced by pt on [facility] soft finely chopped texture- was upgraded to Soft easy chew, was mostly on BIPAP, on non-rebreather during meals-> now orally intubated in ICU, non oral feeds. * Decreased sodium and fat needs r/t clinical status, ascites, as evidenced by s/p paracentesis, elev LFT's, elev T bili (INACTIVE) CURRENT TF:Glucerna 1.5 @20ml- held ENTERAL NUTRITION RECOMMENDATIONS: WHEN HD STABLE: Vital AF 1.2 @ 50ml/hr x 24 hrs to provide 1200ml, 1440kcal, 90g prot, 973ml free water * WHEN PT HEMODYNAMICALLY STABLE: -> initiate Vital AF 1.2 @ 10ml/hr x 6 hrs -> advance 10ml q 4-6 hrs as tolerated -> HOB over 30 degrees/ water flush per MD WITHOUT HD STABILTY: consider trophic feeding of Vital AF 1.2 @ 5-10ml/hr if able to raise bed >30 degrees ADDITIONAL RECOMMENDATIONS: 1) Obtain daily standing weight for accuracy or calibrated bedscale wt current bedscale wt 115 bs vs initial bedscale wt 158lbs 2) Monitor HD stability: on NE @ 30mcg-> now @8mcg-> now off LA trending up (4.0) 3) Monitor renal fxn and liver fxn: creat and T bili trend up 4) WC eval for sacral DTPI (2) Shock Assessment & Plan: Pulmonary arterial opacification is somewhat suboptimal, and small peripheral emboli could be missed. In addition, there is some image degradation due to motion artifact which also precludes exclusion of small peripheral emboli. No gross large vessel pulmonary emboli are demonstrated. The left main pulmonary artery is ectatic, measuring up to 2.5 cm. No isolated right ventricular dilatation. There is generalized four-chamber cardiomegaly. No evidence of thoracic aortic aneurysm or dissection. Normal caliber and branching anatomy of the right neck vessels is noted. There is extensive pulmonary parenchymal disease. There is extensive groundglass opacity involving most of the upper lobes. There is extensive interstitial septal thickening involving the lower lobes, as well as considerable atelectasis and confluent opacity. There is of bronchiectasis, subpleural blebs, and bilateral peripheral honeycombing are also present. There are bilateral small pleural effusions. The extent of the pulmonary parenchymal disease at the lung bases is greater than that which was visualized on abdomen CT scan of 08/23/2019 There is considerable edema of the mediastinal and epicardial fat, but no definite pericardial effusion is demonstrated. No mediastinal or hilar mass or adenopathy. Grossly unremarkable esophagus. The visualized thyroid is unremarkable. No axillary or chest wall mass or adenopathy. There is mild height loss of the T8 vertebral body. It is slightly sclerotic, demonstrates considerable superior and inferior endplate irregularity. There is degenerative spondylosis elsewhere in the thoracic spine. Included upper abdominal anatomy demonstrates atrophic liver with surface nodularity. There is a TIPS shunt in place which is probably patent. There is hypertrophy of the hepatic arteries. Gallstones are noted. There is considerable ascites fluid present. What are probably embolic coils are seen in the region of the splenic capsule. Impression: Somewhat suboptimal pulmonary arterial opacification as well as limitation of exam by motion artifact. Small peripheral emboli not completely excludable. No gross large vessel central pulmonary emboli demonstrated. Mildly dilated left main pulmonary artery, suggestive of but not diagnostic for pulmonary arterial hypertension Cardiomegaly Evidence of anasarca, with diffuse body wall and mediastinal edema, small bilateral pleural effusions, ascites Extensive pulmonary parenchymal disease, as described, with groundglass opacity, interstitial septal thickening, bronchiectasis, subpleural blebs, and peripheral honeycombing. Given the finding of cardiomegaly and anasarca, findings most likely on the basis of pulmonary edema. Pneumonia is also a possibility. In addition, there is probably underlying component of chronic fibrotic change. T8 vertebral body loss of height. This may reflect age-indeterminate compression fracture deformity versus degenerative remodeling. Consider MRI for better characterization if clinically relevant Evidence of hepatic cirrhosis. Evidence of portal hypertension, with a TIPS shunt in place, and ascites. This is been previously described Cholelithiasis Perisplenic embolic coils. Degenerative spondylosis (3) Cirrhosis Assessment & Plan: There is an orogastric tube in place, tip projected at the level of the fundus body junction, proximal port well distal to the expected level of the gastric esophageal junction. There is a TIPS shunt present. Bowel gas pattern is unremarkable. Vascular embolic coils are seen in the left upper quadrant. There is mild lumbar scoliotic deformity and considerable degenerative lumbar spondylosis * Significant interval reduction of ascites status post paracentesis. * Cirrhosis with indwelling patent TIPS shunt. Elevated velocities in the distal aspect of the TIPS shunt > 200 cm/s suggesting a degree of possible in-stent stenosis, especially given recurrent ascites. Correlation with prior ultrasound is essential to assess for interval change in velocities. Patient may benefit from interventional tip study with portal pressure measurements and possible TIPS angioplasty, especially if there is a significant elevation in velocities in the shunt upon comparison with baseline study. * Cholelithiasis. No radiographic evidence to suggest acute cholecystitis. Sonographic Ponce sign reported as negative. (4) Respiratory failure, acute Michael Merrill Oct 05, 2019 12:57
--- NOTE | 2019-10-05 14:31 | NUR ---
NURSE NOTES: Wound care nurse came and assessed the wound. Cleaned pt for 1 brown greenish soft BM and repositioned pt.
--- NOTE | 2019-10-05 14:33 | NUR ---
*-* INSURANCE *-* ALL AVAILABLE CLINICALS AND REVIEWS HAVE BEEN FAXED TO: [facility] REESE: DEEPAK P- [phone] F- [phone]...........REVIEW/CLINICAL
--- NOTE | 2019-10-05 14:34 | NUR ---
*-* INSURANCE *-* ALL AVAILABLE CLINICALS AND REVIEWS HAVE BEEN FAXED TO: [facility] REESE: DEEPAK P- [phone] F- [phone]...........REVIEW/CLINICAL
--- NOTE | 2019-10-05 16:27 | General Progress Note ---
Assessment/Plan Problem List: (1) AMS (altered mental status) ICD Codes: R41.82 - Altered mental status, unspecified SNOMED: 085358721 (2) Sepsis ICD Codes: A41.9 - Sepsis, unspecified organism SNOMED: 80351532 (3) Shock ICD Codes: R57.9 - Shock, unspecified SNOMED: 71185748 (4) Cirrhosis ICD Codes: K74.60 - Unspecified cirrhosis of liver SNOMED: 25089374 (5) Hypoxia ICD Codes: R09.02 - Hypoxemia SNOMED: 043132743 (6) Respiratory failure, acute ICD Codes: J96.00 - Acute respiratory failure, unspecified whether with hypoxia or hypercapnia SNOMED: 66172453 Qualifiers: Qualified Codes: J96.01 - Acute respiratory failure with hypoxia Status: stable Assessment/Plan: vent support pressors as needed ivf stress dose steroids- weaning iv abx per id transfuse prn critical and guarded poor prognosis Subjective ROS Limited/Unobtainable: Yes Constitutional: Reports: malaise, weakness HEENT: Reports: no symptoms Cardiovascular: Reports: edema Respiratory: Reports: shortness of breath Gastrointestinal/Abdominal: Reports: no symptoms Genitourinary: Reports: no symptoms Neurologic/Psychiatric: Reports: anxiety, emotional problems Endocrine: Reports: no symptoms Hematologic/Lymphatic: Reports: anemia Allergies: Coded Allergies: PENICILLINS (Verified Allergy, Intermediate, Rash, 09/01/19) Patient stated at this time All Systems: reviewed and negative except above Subjective no events. remains intubated. off pressors. on amio drip. multiple positive blood cultures. opens eyes. Objective Last 24 Hour Vital Signs Date Time Temp Pulse Resp B/P (MAP) Pulse Ox O2 Delivery O2 Flow Rate FiO2 10/05/19 15:00 82 23 100/40 (60) 94 10/05/19 14:55 83 21 50 10/05/19 14:00 85 27 92/42 (59) 93 10/05/19 13:00 84 19 102/40 (60) 97 10/05/19 12:32 84 23 50 10/05/19 12:30 84 19 101/43 (62) 97 10/05/19 12:00 82 20 104/39 (60) 95 10/05/19 12:00 50 10/05/19 12:00 Mechanical Ventilator Mechanical Ventilator 10/05/19 12:00 85 10/05/19 11:45 82 20 104/40 (61) 95 10/05/19 11:30 97.7 79 17 97/36 (56) 96 10/05/19 11:15 79 17 104/38 (60) 96 10/05/19 11:00 81 20 100/40 (60) 95 10/05/19 10:40 80 23 50 10/05/19 10:30 79 19 104/38 (60) 96 10/05/19 10:00 81 19 99/38 (58) 94 10/05/19 09:30 82 21 99/36 (57) 96 10/05/19 09:00 83 21 105/41 (62) 95 10/05/19 08:30 80 18 103/40 (61) 100 10/05/19 08:30 79 18 50 10/05/19 08:30 50 10/05/19 08:09 81 10/05/19 08:00 97.0 80 20 100/41 (60) 99 10/05/19 08:00 60 10/05/19 08:00 Mechanical Ventilator Mechanical Ventilator 10/05/19 07:30 82 21 103/40 (61) 98 10/05/19 07:00 81 23 105/40 (61) 98 10/05/19 06:40 82 20 60 10/05/19 06:30 82 23 96/37 (56) 98 10/05/19 06:00 81 22 104/40 (61) 98 10/05/19 05:36 81 21 60 10/05/19 05:30 81 21 107/40 (62) 99 10/05/19 05:00 84 24 100/41 (60) 98 10/05/19 04:30 83 22 100/45 (63) 97 10/05/19 04:00 Mechanical Ventilator Mechanical Ventilator 10/05/19 04:00 60 10/05/19 04:00 98.8 82 21 99/44 (62) 98 10/05/19 04:00 80 10/05/19 03:30 82 22 103/46 (65) 95 10/05/19 03:03 84 22 60 10/05/19 03:00 83 21 99/42 (61) 97 10/05/19 02:30 84 18 99/42 (61) 96 10/05/19 02:00 80 18 97/41 (59) 96 10/05/19 01:30 82 19 97/42 (60) 97 10/05/19 01:05 82 22 60 10/05/19 01:00 81 19 97/41 (59) 97 10/05/19 00:30 100/43 10/05/19 00:30 83 22 100/43 (62) 96 10/05/19 00:00 98.0 84 22 102/49 (66) 98 10/05/19 00:00 60 10/05/19 00:00 79 10/05/19 00:00 60 10/05/19 00:00 Mechanical Ventilator Mechanical Ventilator 10/04/19 23:30 83 20 100/45 (63) 98 10/04/19 23:11 84 23 60 10/04/19 23:00 84 20 102/42 (62) 98 10/04/19 22:30 84 21 102/46 (64) 98 10/04/19 22:00 84 21 103/46 (65) 98 10/04/19 21:30 85 21 105/49 (67) 98 10/04/19 21:29 85 19 60 10/04/19 21:00 82 17 103/43 (63) 98 10/04/19 20:30 81 18 98/42 (60) 98 10/04/19 20:00 Mechanical Ventilator Mechanical Ventilator 10/04/19 20:00 60 10/04/19 20:00 80 10/04/19 20:00 98.0 82 19 105/45 (65) 98 10/04/19 19:00 82 17 103/43 (63) 98 10/04/19 19:00 84 21 60 10/04/19 18:30 86 22 104/53 (70) 96 10/04/19 18:00 87 21 103/46 (65) 98 10/04/19 17:30 109 18 100/52 (68) 98 10/04/19 17:00 109 17 99/56 (70) 98 10/04/19 16:40 103 22 60 10/04/19 16:30 109 22 103/57 (72) 96 Intake and Output 10/04/19 10/05/19 19:00 07:00 Intake Total 1841.086 ml 1074.94 ml Output Total 1190 ml 701 ml Balance 651.086 ml 373.94 ml Free Water 25 ml IV Total 1576.086 ml 974.94 ml Tube Feeding 240 ml 100 ml Output Urine Total 1190 ml 500 ml Gastric Drainage Total 200 ml Emesis 1 ml # Bowel Movements 4 6 Laboratory Tests 10/05/19 04:30: White Blood Count 39.9*H, Red Blood Count 2.61L, Hemoglobin 8.7L, Hematocrit 26.6L, Mean Corpuscular Volume 102H, Mean Corpuscular Hemoglobin 33.6H, Mean Corpuscular Hemoglobin Concent 32.9, Red Cell Distribution Width 14.9H, Platelet Count 43L, Mean Platelet Volume 7.6, Neutrophils (%) (Auto) , Lymphocytes (%) (Auto) , Monocytes (%) (Auto) , Eosinophils (%) (Auto) , Basophils (%) (Auto) , Differential Total Cells Counted 100, Neutrophils % ( Manual) 92H, Lymphocytes % (Manual) 4L, Monocytes % (Manual) 3, Eosinophils % ( Manual) 0, Basophils % (Manual) 0, Band Neutrophils 1, Platelet Estimate DecreasedL, Platelet Morphology Normal, Sodium Level 137, Potassium Level 4.2, Chloride Level 103, Carbon Dioxide Level 23, Anion Gap 11, Blood Urea Nitrogen 109H, Creatinine 2.2H, Estimat Glomerular Filtration Rate 30.7, Glucose Level 123H, Calcium Level 6.8L, Magnesium Level 1.9, Total Bilirubin 2.0H, Direct Bilirubin 1.1H, Aspartate Amino Transf (AST/SGOT) 43H, Alanine Aminotransferase (ALT/SGPT) 33, Alkaline Phosphatase 158H, Pro-B-Type Natriuretic Peptide 25792B , Total Protein 5.8L, Albumin 1.6L, Globulin 4.2, Albumin/Globulin Ratio 0.4L Height (Feet): 5 Height (Inches): 8.00 Weight (Pounds): 140 Objective General Appearance: WD/WN, lethargic. orally intubated Neck: supple Cardiovascular: regular rhythm Respiratory/Chest: lungs td rhonchi Abdomen: normal bowel sounds, non tender. small reducible periumbilical hernia Edema: no edema noted Arm (L), no edema noted Arm (R), no edema noted Leg (L), no edema noted Leg (R), no edema noted Pedal (L), no edema noted Pedal (R), no edema noted Generalized Henry Leavitt MD Oct 05, 2019 16:27
--- NOTE | 2019-10-05 17:00 | NUR ---
NURSE NOTES: Cleaned pt for the second time for 1 small brown soft BM. Turned and repositioned pt. VSS. Will continue to monitor.
--- NOTE | 2019-10-05 19:15 | NUR ---
NURSE NOTES: WOUND CARE FOLLOW-UP NOTES: Pt assessed with Primary nurse in attendance. Pt noted to have partial thickness pressure injury within area of hyperpigmentation on sacrum previously noted on initial assessment. Base of wound is moist and viable .Shearing periwound with non-blanching erythema.No odor or exudate noted. (L)3.2cm x (W)6cm. Pt noted to have small furuncle R elbow(L00.5cm x (W)0.5cm. Small amt purulent exudate noted when palpated. Erythema with indurated borders noted. Periwound without erythema, induration or elevation in skin temp. Both heels are boggy with non-blanching erythema. Wound care provided. L elbow swabbed with Betadine. Covered with Optifoam drsg. Moisture Barrier paste applied to Sacrum. Covered with Optifoam drsg. Cavilon Skin Barrier applied to both heels. Each heel covered with Optifoam drsg.and both heels floated off mattress with pillow.Pt positioned on R side with Pillow.PT has an APM/LEIDY mattress overlay . All wound prevention protocols continued as care planned. Tx.plan: Apply Betadine to R elbow. Cover with Optifoam drsg Daily and prn. Apply Moisture Barrier paste to Sacrum. Cover with Optifoam drsg. Change every 3 days and prn. Apply Cavilon Skin Barrier to both heels. Cover each heel with Optifoam drsg. Change every 7 days and prn. APM/LEIDY Mattress overlay. Reposition at least every 2hours or as tolerated. Off-load heels with pillow.
[2019-10-05] MEDS ORDERED: Lidocaine HCl 2% Jelly 6ml Tube TOPIC SCH (19:30)
--- NOTE | 2019-10-05 19:31 | NUR ---
HAND-OFF: Report given to Justen Fortune RN.
--- NOTE | 2019-10-05 19:55 | NUR ---
NURSE NOTES: Observed pt lying in the bed, lethargic, arousable by shaking. SR on youth nutritional monitor. ETT 7.5 at 24, AC 14, TV 480, FIO2 50%, PEEP 10, no sob noted. OGT connected to low intermittent suction, yellow residual noted. Condom cath in place and draining well. Bilateral upper extremities weeping noted. ALVINO PICC, intact, running D5 NS at 75cc/hr. Bed in the lowest position. Side rails up x3. Will continue to monitor.
[2019-10-05] MEDS ORDERED: Lidocaine 1% 10mg/ml/EPI 0.01mg/ml 50ml INJ SCH (20:00)
[2019-10-05] MEDS: Dyna-Hex 2% Top Sol 2oz TOPIC SCH (20:39)
--- NOTE | 2019-10-05 21:47 | NUR ---
RESPIRATORY NOTE: RECEIVED THE PT ON VENT SETTINGS AC VC 14/ 480/ 50%/ +10. ETT 7.5 AND 24 AT THE LIP SECURED WITH ANCHOR FAST. SAT 99% ON 50% FIO2. PT B/S DIMINISHED. VENT PLUGGED INTO RED OUTLET AND BMV AT BEDSIDE. ALARMS ARE ON AND AUDIBLE. WILL CONTINUE TO MONITOR THROUGHOUT THE NIGHT.
--- NOTE | 2019-10-05 22:24 | NUR ---
NURSE NOTES: Observed pt sleeping in the bed, arousable by shaking. VS WNL. SR on material manager. No acute distress noted at this time. Tolerating well with current vent setting, AC 14, 480, 50%, +10, saturating at 94%. Reposition done. Will continue to monitor.
[2019-10-06] VITALS (25 sets, daily range): BP systolic 87–105; BP diastolic 35–70
--- NOTE | 2019-10-06 | NUR ---
NURSE NOTES: Observed pt sleeping in the bed. No acute distress noted at this time. SR on personnel monitor. Tolerating current vent setting, AC 14/480/50%/10, saturating at 100%. Reposition done. Bed bath given. Oral care given. Will continue to monitor.
[2019-10-06] MEDS: Norepinephrine Bitartrate 8 MG in D5W 500ml 550 ML IV SCH (00:30)
--- NOTE | 2019-10-06 01:00 | NUR ---
NURSE NOTES: Noted pt had 1 episode of vtach, asymptomatic. VS WNL. No change in mental status noted. Will continue to monitor.
--- NOTE | 2019-10-06 02:00 | NUR ---
NURSE NOTES: Noted pt bp of 87/36. SR on personnel monitor. Arousable by shaking. Tolerating vent, saturating at 100%. Will continue to monitor.
[2019-10-06] MEDS: D5NS 1,000 ML IV SCH ×2 (03:38→16:31)
--- NOTE | 2019-10-06 04:01 | Progress Note ---
DATE: 10/05/2019 CARDIOLOGY PROGRESS NOTE SUBJECTIVE: Remains critical and guarded, intubated, off pressors on oral amiodarone. Sinus rhythm. OBJECTIVE: VITAL SIGNS: Blood pressure 100/40, pulse 83, respirations 23. LUNGS: Bilateral breath sounds. Rhonchi. CARDIAC: Regular rhythm and rate. Normal S1, S2. ABDOMEN: Soft. EXTREMITIES: Trace edema. LABORATORY DATA: White count 40, hemoglobin 8.7. Pro-natriuretic peptide 21,000. Albumin 1.6. BUN 109, creatinine 2.2. Potassium 4.2. IMPRESSION: 1. Sepsis. 2. Recovering shock. 3. Acute on chronic diastolic congestive heart failure. 4. Respiratory failure. 5. Acute on chronic renal failure. 6. Lactic acidosis. 7. Severe protein-calorie malnutrition. PLAN: 1. Cannot diurese. 2. Continue vent. 3. Antimicrobials. 4. Steroids with taper. 5. DVT prophylaxis. 6. Follow up culture results. Ar Gomez M.D. DR: BETHANY JOB#: [id number] CC:
--- NOTE | 2019-10-06 04:10 | NUR ---
NURSE NOTES: pt sleeping in the bed. BP of 94/56 noted. No acute distress noted at this time. SR on inspection manager. Tolerating well with current vent setting, saturating at 99%. Oral care given. Will continue to monitor.
--- NOTE | 2019-10-06 06:57 | NUR ---
HAND-OFF: Report given to Amelie zaman RN
[2019-10-06 06:58] LABS: ALANINE AMINOTRANSFERASE 32 U/L (12-78); ALBUMIN 1.4 G/DL (3.4-5.0); ALBUMIN/GLOBULIN RATIO 0.4 (1.0-2.7); ALKALINE PHOSPHATASE 150 U/L (46-116); ANION GAP 9 mmol/L (5-15); ASPARTATE AMINO TRANSFERASE 36 U/L (15-37); BLOOD UREA NITROGEN 119 mg/dL (7-18); CALCIUM 6.7 MG/DL (8.5-10.1); CARBON DIOXIDE 23 MMOL/L (21-32); CHLORIDE 109 MMOL/L (98-107); CREATININE 2.2 MG/DL (0.55-1.30); POTASSIUM 4.5 MMOL/L (3.5-5.1); SODIUM 141 MMOL/L (136-145)
--- NOTE | 2019-10-06 06:59 | General Progress Note ---
Assessment/Plan Problem List: (1) AMS (altered mental status) ICD Codes: R41.82 - Altered mental status, unspecified SNOMED: 153672981 (2) Sepsis ICD Codes: A41.9 - Sepsis, unspecified organism SNOMED: 90138909 (3) Shock ICD Codes: R57.9 - Shock, unspecified SNOMED: 30163475 (4) Cirrhosis ICD Codes: K74.60 - Unspecified cirrhosis of liver SNOMED: 98301708 (5) Hypoxia ICD Codes: R09.02 - Hypoxemia SNOMED: 354808607 (6) Respiratory failure, acute ICD Codes: J96.00 - Acute respiratory failure, unspecified whether with hypoxia or hypercapnia SNOMED: 82668571 Qualifiers: Qualified Codes: J96.01 - Acute respiratory failure with hypoxia Status: stable Assessment/Plan: vent support pressors as needed ivf stress dose steroids- weaning iv abx per id transfuse prn kub tube feeds if tolerates critical and guarded poor prognosis Subjective ROS Limited/Unobtainable: Yes Constitutional: Reports: malaise, weakness HEENT: Reports: no symptoms Cardiovascular: Reports: no symptoms Respiratory: Reports: shortness of breath Gastrointestinal/Abdominal: Reports: no symptoms Genitourinary: Reports: no symptoms Neurologic/Psychiatric: Reports: anxiety, emotional problems Endocrine: Reports: no symptoms Hematologic/Lymphatic: Reports: anemia Allergies: Coded Allergies: PENICILLINS (Verified Allergy, Intermediate, Rash, 09/01/19) Patient stated at this time All Systems: reviewed and negative except above Subjective no events. no real change. remains intubated. off drips. multiple iv abx. labs pending for this am. not tolerating ngt feeds Objective Last 24 Hour Vital Signs Date Time Temp Pulse Resp B/P (MAP) Pulse Ox O2 Delivery O2 Flow Rate FiO2 10/06/19 06:00 85 23 101/36 (57) 98 10/06/19 06:00 82 20 94/56 (69) 97 10/06/19 05:21 83 21 50 10/06/19 05:00 82 20 94/56 (69) 97 10/06/19 04:00 50 10/06/19 04:00 83 10/06/19 04:00 Mechanical Ventilator Mechanical Ventilator 10/06/19 04:00 98.2 83 21 94/35 (54) 97 10/06/19 03:00 84 20 89/38 (55) 98 10/06/19 02:49 87 21 50 10/06/19 02:00 83 20 87/36 (53) 97 10/06/19 01:30 84 22 90/35 (53) 96 10/06/19 01:18 85 22 50 10/06/19 01:00 86 22 88/35 (52) 96 10/06/19 00:30 93/37 10/06/19 00:00 Mechanical Ventilator Mechanical Ventilator 10/06/19 00:00 50 10/06/19 00:00 98.5 91 21 93/37 (55) 95 10/06/19 00:00 94 10/05/19 23:06 90 20 50 10/05/19 23:00 92 22 94/38 (56) 94 10/05/19 22:00 92 26 99/39 (59) 95 10/05/19 21:11 93 19 50 10/05/19 21:00 92 28 100/45 (63) 93 10/05/19 20:00 98.2 88 21 98/43 (61) 94 10/05/19 20:00 50 10/05/19 20:00 86 10/05/19 20:00 Mechanical Ventilator Mechanical Ventilator 10/05/19 19:00 83 24 88/40 (56) 99 10/05/19 18:59 85 25 50 10/05/19 18:00 87 27 105/40 (61) 96 10/05/19 17:15 87 25 50 10/05/19 17:00 87 24 105/42 (63) 96 10/05/19 16:00 Mechanical Ventilator Mechanical Ventilator 10/05/19 16:00 87 10/05/19 16:00 98.1 86 23 102/40 (60) 96 10/05/19 16:00 50 10/05/19 15:00 82 23 100/40 (60) 94 10/05/19 14:55 83 21 50 10/05/19 14:00 85 27 92/42 (59) 93 10/05/19 13:00 84 19 102/40 (60) 97 10/05/19 12:32 84 23 50 10/05/19 12:30 84 19 101/43 (62) 97 10/05/19 12:00 82 20 104/39 (60) 95 10/05/19 12:00 50 10/05/19 12:00 Mechanical Ventilator Mechanical Ventilator 10/05/19 12:00 85 10/05/19 11:45 82 20 104/40 (61) 95 10/05/19 11:30 97.7 79 17 97/36 (56) 96 10/05/19 11:15 79 17 104/38 (60) 96 10/05/19 11:00 81 20 100/40 (60) 95 10/05/19 10:40 80 23 50 10/05/19 10:30 79 19 104/38 (60) 96 10/05/19 10:00 81 19 99/38 (58) 94 10/05/19 09:30 82 21 99/36 (57) 96 10/05/19 09:00 83 21 105/41 (62) 95 10/05/19 08:30 80 18 103/40 (61) 100 10/05/19 08:30 79 18 50 10/05/19 08:30 50 10/05/19 08:09 81 10/05/19 08:00 97.0 80 20 100/41 (60) 99 10/05/19 08:00 60 10/05/19 08:00 Mechanical Ventilator Mechanical Ventilator 10/05/19 07:30 82 21 103/40 (61) 98 10/05/19 07:00 81 23 105/40 (61) 98 Intake and Output 10/05/19 10/06/19 19:00 07:00 Intake Total 1062.64 ml 1025 ml Output Total 440 ml 110 ml Balance 622.64 ml 915 ml Free Water 110 ml IV Total 1062.64 ml 915 ml Tube Feeding 0 ml 0 ml Output Urine Total 440 ml 110 ml # Bowel Movements 4 1 Laboratory Tests 10/06/19 03:40: White Blood Count [Pending], Red Blood Count [Pending], Hemoglobin [Pending], Hematocrit [Pending], Mean Corpuscular Volume [Pending], Mean Corpuscular Hemoglobin [Pending], Mean Corpuscular Hemoglobin Concent [Pending], Red Cell Distribution Width [Pending], Platelet Count [Pending], Mean Platelet Volume [ Pending], Neutrophils (%) (Auto) [Pending], Lymphocytes (%) (Auto) [Pending], Monocytes (%) (Auto) [Pending], Eosinophils (%) (Auto) [Pending], Basophils (%) (Auto) [Pending], Sodium Level [Pending], Potassium Level [Pending], Chloride Level [Pending], Carbon Dioxide Level [Pending], Blood Urea Nitrogen [Pending], Creatinine [Pending], Estimat Glomerular Filtration Rate [Pending], Glucose Level [Pending], Calcium Level [Pending], Total Bilirubin [Pending], Aspartate Amino Transf (AST/SGOT) [Pending], Alanine Aminotransferase (ALT/SGPT) [Pending] , Alkaline Phosphatase [Pending], Total Protein [Pending], Albumin [Pending], Globulin [Pending], Random Vancomycin Level 12.2 Height (Feet): 5 Height (Inches): 8.00 Weight (Pounds): 141 Objective General Appearance: WD/WN, lethargic. orally intubated Neck: supple Cardiovascular: regular rhythm Respiratory/Chest: lungs td rhonchi Abdomen: normal bowel sounds, non tender. small reducible periumbilical hernia Edema: no edema noted Arm (L), no edema noted Arm (R), no edema noted Leg (L), no edema noted Leg (R), no edema noted Pedal (L), no edema noted Pedal (R), no edema noted Generalized Henry Leavitt MD Oct 06, 2019 06:59
--- NOTE | 2019-10-06 07:00 | NUR ---
NURSE NOTES: Report received from Justen Fortune RN. Pt is sleeping in bed. Opens eyes spontaneously, but lethargic. Sinus rhythm on vehicle monitor technician. ETT 7.5/24cm at lip line. AC 14, TV 480, P 10, FiO2 50%. O2 sat 98%. OGT in place and connected to suction for now. Condom catheter in place draining to gravity. Scrotal edema noted. Bilateral upper extremities mildly edematous and weeping. ALVINO PICC line patent and asymptomatic. D5NS is running at 75cc/hr. Bed in lowest position. Side rails up x3. Will resume plan of care.
[2019-10-06 07:01] LABS: BILIRUBIN,DIRECT 1.3 MG/DL (0.0-0.3)
[2019-10-06] MEDS ORDERED: Lidocaine 1% 10mg/ml/EPI 0.01mg/ml 50ml INJ PRN (08:00)
[2019-10-06] MEDS ORDERED: Lidocaine 2% Visc 15ml soln ORAL PRN (08:00)
[2019-10-06] MEDS ORDERED: Lidocaine 1% Plain 30 ml INJ PRN (08:00)
--- NOTE | 2019-10-06 08:53 | Infectious Diseases Prog Note ---
Assessment/Plan Assessment/Plan IMPRESSION: 1. MRSA & KPC pneumonia, 2. Klebsiella UTI 3. Cirrhosis with ascites. 4. MRSA colonization. 5. Anemia. 6. Thrombocytopenia. 7. Tachycardia 8. Hypercapnic respiratory failure. 9. Leukocytosis, improving 10 Staph aureus, MRSA sepsis 11. acute renal failure 12. septic shock 13. Lactic acidosis 14. Thrombocytopenia RECOMMENDATIONS: Continue Tygacil &Vancomycin Discontinue Meropenem Add colistin inhaler Poor prognosis Case was D/W pharmacist Subjective ROS Limited/Unobtainable: Yes Constitutional: Denies: fever Allergies: Coded Allergies: PENICILLINS (Verified Allergy, Intermediate, Rash, 09/01/19) Patient stated at this time Objective Vital Signs Last 24 Hour Vital Signs Date Time Temp Pulse Resp B/P (MAP) Pulse Ox O2 Delivery O2 Flow Rate FiO2 10/06/19 07:00 81 20 102/48 (66) 98 10/06/19 07:00 82 21 50 10/06/19 06:00 85 23 101/36 (57) 98 10/06/19 06:00 82 20 94/56 (69) 97 10/06/19 05:21 83 21 50 10/06/19 05:00 82 20 94/56 (69) 97 10/06/19 04:00 50 10/06/19 04:00 83 10/06/19 04:00 Mechanical Ventilator Mechanical Ventilator 10/06/19 04:00 98.2 83 21 94/35 (54) 97 10/06/19 03:00 84 20 89/38 (55) 98 10/06/19 02:49 87 21 50 10/06/19 02:00 83 20 87/36 (53) 97 10/06/19 01:30 84 22 90/35 (53) 96 10/06/19 01:18 85 22 50 10/06/19 01:00 86 22 88/35 (52) 96 10/06/19 00:30 93/37 10/06/19 00:00 Mechanical Ventilator Mechanical Ventilator 10/06/19 00:00 50 10/06/19 00:00 98.5 91 21 93/37 (55) 95 10/06/19 00:00 94 10/05/19 23:06 90 20 50 10/05/19 23:00 92 22 94/38 (56) 94 10/05/19 22:00 92 26 99/39 (59) 95 10/05/19 21:11 93 19 50 10/05/19 21:00 92 28 100/45 (63) 93 10/05/19 20:00 98.2 88 21 98/43 (61) 94 10/05/19 20:00 50 10/05/19 20:00 86 10/05/19 20:00 Mechanical Ventilator Mechanical Ventilator 10/05/19 19:00 83 24 88/40 (56) 99 10/05/19 18:59 85 25 50 10/05/19 18:00 87 27 105/40 (61) 96 10/05/19 17:15 87 25 50 10/05/19 17:00 87 24 105/42 (63) 96 10/05/19 16:00 Mechanical Ventilator Mechanical Ventilator 10/05/19 16:00 87 10/05/19 16:00 98.1 86 23 102/40 (60) 96 10/05/19 16:00 50 10/05/19 15:00 82 23 100/40 (60) 94 10/05/19 14:55 83 21 50 10/05/19 14:00 85 27 92/42 (59) 93 10/05/19 13:00 84 19 102/40 (60) 97 10/05/19 12:32 84 23 50 10/05/19 12:30 84 19 101/43 (62) 97 10/05/19 12:00 82 20 104/39 (60) 95 10/05/19 12:00 50 10/05/19 12:00 Mechanical Ventilator Mechanical Ventilator 10/05/19 12:00 85 10/05/19 11:45 82 20 104/40 (61) 95 10/05/19 11:30 97.7 79 17 97/36 (56) 96 10/05/19 11:15 79 17 104/38 (60) 96 10/05/19 11:00 81 20 100/40 (60) 95 10/05/19 10:40 80 23 50 10/05/19 10:30 79 19 104/38 (60) 96 10/05/19 10:00 81 19 99/38 (58) 94 10/05/19 09:30 82 21 99/36 (57) 96 10/05/19 09:00 83 21 105/41 (62) 95 Height (Feet): 5 Height (Inches): 8.00 Weight (Pounds): 141 HEENT: mucous membranes moist, other - orally intubated Respiratory/Chest: decreased breath sounds, other - on ventilator Cardiovascular: normal rate, other - R arm PICC line Abdomen: soft, non tender, distended, other - Tube feeding Extremities: no edema Neurologic/Psychiatric: unresponsiveness Microbiology Date/Time Source Procedure Growth Status 10/05/19 12:45 Sputum Gram Stain Pending Resulted 10/05/19 12:45 Sputum Culture - Preliminary Gram Negative Bacillus 1 Resulted Laboratory Tests Test 10/06/19 03:40 White Blood Count Pending Red Blood Count Pending Hemoglobin Pending Hematocrit Pending Mean Corpuscular Volume Pending Mean Corpuscular Hemoglobin Pending Mean Corpuscular Hemoglobin Concent Pending Red Cell Distribution Width Pending Platelet Count Pending Mean Platelet Volume Pending Neutrophils (%) (Auto) Pending Lymphocytes (%) (Auto) Pending Monocytes (%) (Auto) Pending Eosinophils (%) (Auto) Pending Basophils (%) (Auto) Pending Sodium Level 141 MMOL/L (136-145) Potassium Level 4.5 MMOL/L (3.5-5.1) Chloride Level 109 MMOL/L (98-107) H Carbon Dioxide Level 23 MMOL/L (21-32) Anion Gap 9 mmol/L (5-15) Blood Urea Nitrogen 119 mg/dL (7-18) H Creatinine 2.2 MG/DL (0.55-1.30) H Estimat Glomerular Filtration Rate 30.7 mL/min (>60) Glucose Level 151 MG/DL (74-106) H Calcium Level 6.7 MG/DL (8.5-10.1) L Total Bilirubin 2.0 MG/DL (0.2-1.0) H Direct Bilirubin 1.3 MG/DL (0.0-0.3) H Aspartate Amino Transf (AST/SGOT) 36 U/L (15-37) Alanine Aminotransferase (ALT/SGPT) 32 U/L (12-78) Alkaline Phosphatase 150 U/L (46-116) H Total Protein 5.1 G/DL (6.4-8.2) L Albumin 1.4 G/DL (3.4-5.0) L Globulin 3.7 g/dL Albumin/Globulin Ratio 0.4 (1.0-2.7) L Random Vancomycin Level 12.2 ug/mL Current Medications Medications (Trade) Dose Ordered Sig/Akash Route PRN Reason Start Time Stop Time Status Last Admin Dose Admin Acetaminophen (Tylenol) 650 mg Q6H PRN NG FEVER 09/30/19 10:30 10/30/19 10:29 Amiodarone HCl (Cordarone) 200 mg EVERY 12 HOURS GT 10/05/19 09:00 11/04/19 08:59 10/05/19 20:39 Chlorhexidine Gluconate (Tammy-Hex 2%) 1 applic DAILY@2000 TOPIC 10/04/19 20:00 11/03/19 19:59 10/05/19 20:39 Dextrose/Sodium Chloride 1,000 ml @ 75 mls/hr [id number] IV 10/02/19 08:15 11/01/19 08:14 10/06/19 03:38 Diphenhydramine HCl (Benadryl) 25 mg Q6H PRN ORAL Itching 09/28/19 13:25 10/28/19 13:24 09/29/19 10:09 Hydrocortisone (Solu-CORTEF) 60 mg DAILY IV 10/06/19 09:00 11/05/19 08:59 Lidocaine HCl (Xylocaine Viscous) 15 ml Q4H PRN ORAL For Pain 10/06/19 08:00 11/05/19 07:59 Lidocaine HCl (Xylocaine 1% 30ml) 30 ml ONCE PRN INJ PICC 10/06/19 08:00 10/06/19 23:59 Lidocaine/ Epinephrine (Lidocaine 1% 10mg/ml/EPI 0.01mg/ml 50ml) 1 ml ONCE PRN INJ PROCEDURE 10/06/19 08:00 10/06/19 23:59 Meropenem 1 gm/ Sodium Chloride 55 ml @ 110 mls/hr Q12H IVPB 10/05/19 12:00 10/10/19 11:59 10/05/19 23:12 Metoclopramide HCl (Reglan) 5 mg Q6H PRN ORAL Nausea & Vomiting 10/06/19 07:00 11/05/19 06:59 Multivitamins (Multivitamins) 1 tab DAILY ORAL 09/29/19 09:00 10/22/19 08:59 10/05/19 09:21 Nicotine (Nicoderm) 1 patch Q24H TDERMAL 09/29/19 01:00 10/29/19 00:59 10/06/19 01:07 Norepinephrine Bitartrate 8 mg/ Dextrose 558 ml @ 0 mls/hr Q24H IV 10/04/19 00:30 11/03/19 00:29 Pantoprazole (Protonix) 40 mg ACBREAKFAST ORAL 09/29/19 06:30 10/22/19 08:59 10/04/19 06:31 Sodium Chloride 500 ml @ 999 mls/hr Q31M PRN IV SBP <95 10/03/19 21:15 11/02/19 21:14 10/03/19 23:20 Sodium Chloride (NaCl) 1 gm THREE TIMES A DAY ORAL 10/03/19 10:00 11/02/19 09:59 10/05/19 17:50 Thiamine HCl (Vitamin B1) 100 mg DAILY ORAL 09/29/19 09:00 10/22/19 08:59 10/05/19 09:21 Tigecycline 50 mg/ Sodium Chloride 110 ml @ 220 mls/hr EVERY 12 HOURS IVPB 10/02/19 21:00 10/09/19 20:59 10/05/19 20:39 Vancomycin HCl (Vanco rx to dose) 1 ea DAILY PRN MISC Per rx protocol 10/02/19 10:30 11/01/19 10:29 Vancomycin HCl 1 gm/Dextrose 275 ml @ 183.708 mls/hr ONCE ONCE IVPB 10/06/19 09:00 10/06/19 10:29 Jamie Swanson MD Oct 06, 2019 08:53
[2019-10-06] MEDS ORDERED: Vancomycin 1gm/D5W 275ml IVPB ONE ×2 (09:00)
[2019-10-06] MEDS ORDERED: Hydrocortisone 100mg Inj IV SCH (09:00)
[2019-10-06] MEDS: Tigecycline 50 MG in NS 110 ML IVPB SCH ×2 (09:09→20:48)
[2019-10-06] MEDS: Thiamine 100mg tab ORAL SCH (09:10)
[2019-10-06] MEDS: Amiodarone 200mg tab GT SCH ×2 (09:10→20:47)
[2019-10-06] MEDS: Sodium Chloride 1gm Tab ORAL SCH (09:10)
--- NOTE | 2019-10-06 09:11 | NUR ---
NURSE NOTES: Rhythm converted to A-fib with RVR with HR 110's. Scheduled PO Amiodarone just given. Will continue to monitor.
--- NOTE | 2019-10-06 09:30 | NUR ---
NURSE NOTES: Notified Dr Cook regarding ABG result. Awaiting call back for new orders.
--- NOTE | 2019-10-06 09:35 | NUR ---
NURSE NOTES: Received order from Dr Cook to change vent setting. Dr Cook stated that pt is too unstable to do bronchoscopy today. Order noted and carried out. Notified RT.
--- NOTE | 2019-10-06 09:43 | NUR ---
RADIOLOGY DEPT., ABDOMEN X-RAY COMPLETED.-P.DYE
[2019-10-06] MEDS: Acetaminophen 650mg/20.3ml NG PRN (10:47)
--- NOTE | 2019-10-06 10:48 | NUR ---
NURSE NOTES: PRN Tylenol 650mg and Reglan 5mg tab given for mild pain and nausea. Will continue to monitor.
[2019-10-06] MEDS: Colistin for inhalation INH SCH ×2 (11:00→21:22)
--- NOTE | 2019-10-06 11:47 | Pulmonolgy Critical Care Note ---
Critical Care - Asmt/Plan Assessment/Plan: Pulmonary CCM Progress Note Assessment/Plan Impression - MRSA Pneumonia - Persistent leucocytosis - Hypoxic respiratory Failure - CHFpEF - Atrial Fibrillation - Cirrhosis, h/o ETOH Use, ascites s/p Paracentesis - Homeless - Enterobacter UTI s/p rx - Thrombocytopenia - Anasarca - tachycardia - overwhelming sepsis +++ positive cultures - worsening pulmonary inflitrates PLAN still on high fio2-/PEEP - adjust adjust vent - PH 7.209 consider bronchoscopy when more stable currently on vent on hydrocortisone and taper as able currently unstable and extremely critical remains critically ill taper oxygen and monitor CXR and ABG routine in ICU prognosis remains poor still too ill for intervention impression, plan, and exam edited and reviewed in detail care discussed with RN Subjective ROS Limited/Unobtainable: Yes Allergies: Coded Allergies: PENICILLINS (Verified Allergy, Intermediate, Rash, 09/01/19) Patient stated at this time Subjective care noted on vent on full vent support/ cxr worse O2 at 60% P10 Objective Vital Signs Noted Objective WDWN, OGT, ETT NAD reduced breath sounds bilaterally without rhonchi or wheeze A1C3NTS without MRG NABS nontender no HSM some distention no CC some edema sedated Critical Care - Objective Last 24 Hour Vital Signs Date Time Temp Pulse Resp B/P (MAP) Pulse Ox O2 Delivery O2 Flow Rate FiO2 10/06/19 11:00 119 20 94/42 (59) 97 10/06/19 10:00 117 24 100/52 (68) 97 10/06/19 10:00 79 20 102/36 (58) 98 10/06/19 09:51 113 21 50 10/06/19 09:34 50 10/06/19 09:00 79 20 102/36 (58) 98 10/06/19 08:00 97.5 82 20 101/38 (59) 99 10/06/19 08:00 Mechanical Ventilator Mechanical Ventilator 10/06/19 08:00 50 10/06/19 07:44 80 10/06/19 07:00 81 20 102/48 (66) 98 10/06/19 07:00 82 21 50 10/06/19 06:00 85 23 101/36 (57) 98 10/06/19 06:00 82 20 94/56 (69) 97 10/06/19 05:21 83 21 50 10/06/19 05:00 82 20 94/56 (69) 97 10/06/19 04:00 50 10/06/19 04:00 83 10/06/19 04:00 Mechanical Ventilator Mechanical Ventilator 10/06/19 04:00 98.2 83 21 94/35 (54) 97 10/06/19 03:00 84 20 89/38 (55) 98 10/06/19 02:49 87 21 50 10/06/19 02:00 83 20 87/36 (53) 97 10/06/19 01:30 84 22 90/35 (53) 96 10/06/19 01:18 85 22 50 10/06/19 01:00 86 22 88/35 (52) 96 10/06/19 00:30 93/37 10/06/19 00:00 Mechanical Ventilator Mechanical Ventilator 10/06/19 00:00 50 10/06/19 00:00 98.5 91 21 93/37 (55) 95 10/06/19 00:00 94 10/05/19 23:06 90 20 50 10/05/19 23:00 92 22 94/38 (56) 94 10/05/19 22:00 92 26 99/39 (59) 95 10/05/19 21:11 93 19 50 10/05/19 21:00 92 28 100/45 (63) 93 10/05/19 20:00 98.2 88 21 98/43 (61) 94 10/05/19 20:00 50 10/05/19 20:00 86 10/05/19 20:00 Mechanical Ventilator Mechanical Ventilator 10/05/19 19:00 83 24 88/40 (56) 99 10/05/19 18:59 85 25 50 10/05/19 18:00 87 27 105/40 (61) 96 10/05/19 17:15 87 25 50 10/05/19 17:00 87 24 105/42 (63) 96 10/05/19 16:00 Mechanical Ventilator Mechanical Ventilator 10/05/19 16:00 87 10/05/19 16:00 98.1 86 23 102/40 (60) 96 10/05/19 16:00 50 10/05/19 15:00 82 23 100/40 (60) 94 10/05/19 14:55 83 21 50 10/05/19 14:00 85 27 92/42 (59) 93 10/05/19 13:00 84 19 102/40 (60) 97 10/05/19 12:32 84 23 50 10/05/19 12:30 84 19 101/43 (62) 97 10/05/19 12:00 82 20 104/39 (60) 95 10/05/19 12:00 50 10/05/19 12:00 Mechanical Ventilator Mechanical Ventilator 10/05/19 12:00 85 Micro: Microbiology Date/Time Source Procedure Growth Status 10/05/19 12:45 Sputum Gram Stain Pending Resulted 10/05/19 12:45 Sputum Culture - Preliminary Gram Negative Bacillus 1 Resulted Critical Care - Subjective FI02: 50 Vent Support Breath Rate: 18 Vent Support Mode: AC Vent Tidal Volume: 500 Sputum Amount: Moderate PEEP: 10.0 PIP: 32 Tube Feeding Amount: 0 I&O: Intake and Output 10/05/19 10/06/19 19:00 07:00 Intake Total 1062.64 ml 1175 ml Output Total 440 ml 110 ml Balance 622.64 ml 1065 ml Free Water 110 ml IV Total 1062.64 ml 1065 ml Tube Feeding 0 ml 0 ml Output Urine Total 440 ml 110 ml # Bowel Movements 4 1 ET-Tube: 7.5 ET Position: 24 Ar Cook MD Oct 06, 2019 11:46
--- NOTE | 2019-10-06 13:00 | NUR ---
NURSE NOTES: Dr. Cook came to see patient- updated with patient's condition- with new orders given.
--- NOTE | 2019-10-06 13:31 | NUR ---
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 97.3 HR 119 RR 20 B/P 91/39 AC 18 TV 500 FIO2 50% PEEP 5 CBC PENDING IS: SOLU CORTEF IV COLISTIN INH TYGACIL IV PROTONIX ICU STATUS
--- NOTE | 2019-10-06 14:22 | NUR ---
NURSE NOTES: Called and left a message to Dr Cook regarding ABG result. Awaiting call back for new orders.
--- NOTE | 2019-10-06 14:42 | NUR ---
NURSE NOTES: Dr Cook called back and ordered to increase FiO2 to 55%. Order noted and carried out. Notified RT.
--- NOTE | 2019-10-06 15:09 | Diagnostic Imaging Report ---
Indication: Abdominal pain Comparison: 09/28/2019 Single view of the abdomen obtained Findings: Bowel gas pattern is nonspecific. There is a TIPS present. NG tube is present in good position. No mass, ectopic calcifications, or abnormal gas collections are identified. The bones are unremarkable. Impression: No acute findings
--- NOTE | 2019-10-06 15:40 | NUR ---
NURSE NOTES: Cleaned pt for 1 soft small brown BM and repositioned pt. Oral care done. Small amount of bleeding noted from gum. CBC result sent out has not come back yet since the CBC analyzer in the lab not working.
--- NOTE | 2019-10-06 15:46 | NUR ---
*-* INSURANCE *-* ALL AVAILABLE CLINICALS AND REVIEWS HAVE BEEN FAXED TO: [facility]: DEEPAK P- [phone] F- [phone]...........REVIEW/CLINICAL
[2019-10-06] MEDS ORDERED: D5NS 1000ml IV ONE (16:04)
[2019-10-06] MEDS ORDERED: NS 500ML ONE (16:04)
[2019-10-06] MEDS ORDERED: NS 275ml ONE (16:04)
--- NOTE | 2019-10-06 16:49 | Surgery Progress Note ---
Surgery Progress Note Subjective Additional Comments labs revived imaging reviewed exam stable Objective Last 24 Hour Vital Signs Date Time Temp Pulse Resp B/P (MAP) Pulse Ox O2 Delivery O2 Flow Rate FiO2 10/06/19 16:00 Mechanical Ventilator Mechanical Ventilator 10/06/19 16:00 97.6 123 26 91/49 (63) 99 10/06/19 15:43 122 10/06/19 15:00 110 22 55 10/06/19 15:00 121 20 97/45 (62) 95 10/06/19 14:40 55 10/06/19 14:00 119 20 93/60 (71) 98 10/06/19 14:00 123 24 102/45 (64) 91 10/06/19 13:00 119 20 93/60 (71) 98 10/06/19 13:00 116 22 45 10/06/19 13:00 45 10/06/19 12:05 114 10/06/19 12:00 Mechanical Ventilator Mechanical Ventilator 10/06/19 12:00 97.3 118 20 91/39 (56) 98 10/06/19 12:00 50 10/06/19 11:02 103 21 50 10/06/19 11:00 119 20 94/42 (59) 97 10/06/19 10:00 117 24 100/52 (68) 97 10/06/19 10:00 79 20 102/36 (58) 98 10/06/19 09:51 113 21 50 10/06/19 09:34 50 10/06/19 09:00 79 20 102/36 (58) 98 10/06/19 08:00 97.5 82 20 101/38 (59) 99 10/06/19 08:00 Mechanical Ventilator Mechanical Ventilator 10/06/19 08:00 50 10/06/19 07:44 80 10/06/19 07:00 81 20 102/48 (66) 98 10/06/19 07:00 82 21 50 10/06/19 06:00 85 23 101/36 (57) 98 10/06/19 06:00 82 20 94/56 (69) 97 10/06/19 05:21 83 21 50 10/06/19 05:00 82 20 94/56 (69) 97 10/06/19 04:00 50 10/06/19 04:00 83 10/06/19 04:00 Mechanical Ventilator Mechanical Ventilator 10/06/19 04:00 98.2 83 21 94/35 (54) 97 10/06/19 03:00 84 20 89/38 (55) 98 10/06/19 02:49 87 21 50 10/06/19 02:00 83 20 87/36 (53) 97 10/06/19 01:30 84 22 90/35 (53) 96 10/06/19 01:18 85 22 50 10/06/19 01:00 86 22 88/35 (52) 96 10/06/19 00:30 93/37 10/06/19 00:00 Mechanical Ventilator Mechanical Ventilator 10/06/19 00:00 50 10/06/19 00:00 98.5 91 21 93/37 (55) 95 10/06/19 00:00 94 10/05/19 23:06 90 20 50 10/05/19 23:00 92 22 94/38 (56) 94 10/05/19 22:00 92 26 99/39 (59) 95 10/05/19 21:11 93 19 50 10/05/19 21:00 92 28 100/45 (63) 93 10/05/19 20:00 98.2 88 21 98/43 (61) 94 10/05/19 20:00 50 10/05/19 20:00 86 10/05/19 20:00 Mechanical Ventilator Mechanical Ventilator 10/05/19 19:00 83 24 88/40 (56) 99 10/05/19 18:59 85 25 50 10/05/19 18:00 87 27 105/40 (61) 96 10/05/19 17:15 87 25 50 10/05/19 17:00 87 24 105/42 (63) 96 I&O Intake and Output 10/05/19 10/06/19 19:00 07:00 Intake Total 1062.64 ml 1175 ml Output Total 440 ml 110 ml Balance 622.64 ml 1065 ml Free Water 110 ml IV Total 1062.64 ml 1065 ml Tube Feeding 0 ml 0 ml Output Urine Total 440 ml 110 ml # Bowel Movements 4 1 Dressing: other Wound: other Drains: other Cardiovascular: RSR Respiratory: decreased breath sounds Abdomen: soft, present bowel sounds Extremities: no cyanosis Laboratory Tests Test 10/06/19 03:40 10/06/19 08:49 10/06/19 14:00 White Blood Count Pending Red Blood Count Pending Hemoglobin Pending Hematocrit Pending Mean Corpuscular Volume Pending Mean Corpuscular Hemoglobin Pending Mean Corpuscular Hemoglobin Concent Pending Red Cell Distribution Width Pending Platelet Count Pending Mean Platelet Volume Pending Neutrophils (%) (Auto) Pending Lymphocytes (%) (Auto) Pending Monocytes (%) (Auto) Pending Eosinophils (%) (Auto) Pending Basophils (%) (Auto) Pending Sodium Level 141 MMOL/L (136-145) Potassium Level 4.5 MMOL/L (3.5-5.1) Chloride Level 109 MMOL/L (98-107) H Carbon Dioxide Level 23 MMOL/L (21-32) Anion Gap 9 mmol/L (5-15) Blood Urea Nitrogen 119 mg/dL (7-18) H Creatinine 2.2 MG/DL (0.55-1.30) H Estimat Glomerular Filtration Rate 30.7 mL/min (>60) Glucose Level 151 MG/DL (74-106) H Calcium Level 6.7 MG/DL (8.5-10.1) L Total Bilirubin 2.0 MG/DL (0.2-1.0) H Direct Bilirubin 1.3 MG/DL (0.0-0.3) H Aspartate Amino Transf (AST/SGOT) 36 U/L (15-37) Alanine Aminotransferase (ALT/SGPT) 32 U/L (12-78) Alkaline Phosphatase 150 U/L (46-116) H Total Protein 5.1 G/DL (6.4-8.2) L Albumin 1.4 G/DL (3.4-5.0) L Globulin 3.7 g/dL Albumin/Globulin Ratio 0.4 (1.0-2.7) L Random Vancomycin Level 12.2 ug/mL Arterial Blood pH 7.209 (7.350-7.450) 7.234 (7.350-7.450) Arterial Blood Partial Pressure CO2 57.6 mmHg (35.0-45.0) *H 52.4 mmHg (35.0-45.0) H Arterial Blood Partial Pressure O2 72.8 mmHg (75.0-100.0) L 58.4 mmHg (75.0-100.0) L Arterial Blood HCO3 22.5 mmol/L (22.0-26.0) 21.7 mmol/L (22.0-26.0) L Arterial Blood Oxygen Saturation 91.5 % (95-100) L 85.6 % (95-100) *L Arterial Blood Base Excess -5.5 (-2-2) L -5.8 (-2-2) L Giovanny Test Positive Positive Plan Problems: (1) Sepsis Assessment & Plan: Pt presented hyperpigmentation sacrum with loose dry/ peeling skin. Non -tender when palpated.Scrotum is erythematous. Pt is incontinent of B and B per staff. Condom cath placed on pt by primary nurse. Pt educated on wound prevention and encouraged to frequently turn ,or at least hourly to prevent skin breakdown. No other skin concerns noted. Tx.plan: Apply Moisture Barrier Paste to sacrum. Cover with Optifoam drsg. Change every 3 days and prn. Apply Cavilon Skin Barrier to both heels. Cover each heel with Optifoam drsg. Change every 7 days and prn. Reposition at least every 2hours or as tolerated. Off-load heels with pillow. DAILY ESTIMATED NEEDS: Needs based on Liver, Pulmonary, Critical care 55kg 22-30 kcals/kg 9633-6891 total kcals 1.25-2 g protein/kg 69-110 g total protein 25-30 mL/kg 2243-3600 total fluid mLs NUTRITION DIAGNOSIS: * Swallowing difficulty R/T dysphagia, respiratory status as evidenced by pt on [facility] soft finely chopped texture- was upgraded to Soft easy chew, was mostly on BIPAP, on non-rebreather during meals-> now orally intubated in ICU, non oral feeds. * Decreased sodium and fat needs r/t clinical status, ascites, as evidenced by s/p paracentesis, elev LFT's, elev T bili (INACTIVE) CURRENT TF:Glucerna 1.5 @20ml- held ENTERAL NUTRITION RECOMMENDATIONS: WHEN HD STABLE: Vital AF 1.2 @ 50ml/hr x 24 hrs to provide 1200ml, 1440kcal, 90g prot, 973ml free water * WHEN PT HEMODYNAMICALLY STABLE: -> initiate Vital AF 1.2 @ 10ml/hr x 6 hrs -> advance 10ml q 4-6 hrs as tolerated -> HOB over 30 degrees/ water flush per MD WITHOUT HD STABILTY: consider trophic feeding of Vital AF 1.2 @ 5-10ml/hr if able to raise bed >30 degrees ADDITIONAL RECOMMENDATIONS: 1) Obtain daily standing weight for accuracy or calibrated bedscale wt current bedscale wt 115 bs vs initial bedscale wt 158lbs 2) Monitor HD stability: on NE @ 30mcg-> now @8mcg-> now off LA trending up (4.0) 3) Monitor renal fxn and liver fxn: creat and T bili trend up 4) WC eval for sacral DTPI (2) Shock Assessment & Plan: Pulmonary arterial opacification is somewhat suboptimal, and small peripheral emboli could be missed. In addition, there is some image degradation due to motion artifact which also precludes exclusion of small peripheral emboli. No gross large vessel pulmonary emboli are demonstrated. The left main pulmonary artery is ectatic, measuring up to 2.5 cm. No isolated right ventricular dilatation. There is generalized four-chamber cardiomegaly. No evidence of thoracic aortic aneurysm or dissection. Normal caliber and branching anatomy of the right neck vessels is noted. There is extensive pulmonary parenchymal disease. There is extensive groundglass opacity involving most of the upper lobes. There is extensive interstitial septal thickening involving the lower lobes, as well as considerable atelectasis and confluent opacity. There is of bronchiectasis, subpleural blebs, and bilateral peripheral honeycombing are also present. There are bilateral small pleural effusions. The extent of the pulmonary parenchymal disease at the lung bases is greater than that which was visualized on abdomen CT scan of 08/23/2019 There is considerable edema of the mediastinal and epicardial fat, but no definite pericardial effusion is demonstrated. No mediastinal or hilar mass or adenopathy. Grossly unremarkable esophagus. The visualized thyroid is unremarkable. No axillary or chest wall mass or adenopathy. There is mild height loss of the T8 vertebral body. It is slightly sclerotic, demonstrates considerable superior and inferior endplate irregularity. There is degenerative spondylosis elsewhere in the thoracic spine. Included upper abdominal anatomy demonstrates atrophic liver with surface nodularity. There is a TIPS shunt in place which is probably patent. There is hypertrophy of the hepatic arteries. Gallstones are noted. There is considerable ascites fluid present. What are probably embolic coils are seen in the region of the splenic capsule. Impression: Somewhat suboptimal pulmonary arterial opacification as well as limitation of exam by motion artifact. Small peripheral emboli not completely excludable. No gross large vessel central pulmonary emboli demonstrated. Mildly dilated left main pulmonary artery, suggestive of but not diagnostic for pulmonary arterial hypertension Cardiomegaly Evidence of anasarca, with diffuse body wall and mediastinal edema, small bilateral pleural effusions, ascites Extensive pulmonary parenchymal disease, as described, with groundglass opacity, interstitial septal thickening, bronchiectasis, subpleural blebs, and peripheral honeycombing. Given the finding of cardiomegaly and anasarca, findings most likely on the basis of pulmonary edema. Pneumonia is also a possibility. In addition, there is probably underlying component of chronic fibrotic change. T8 vertebral body loss of height. This may reflect age-indeterminate compression fracture deformity versus degenerative remodeling. Consider MRI for better characterization if clinically relevant Evidence of hepatic cirrhosis. Evidence of portal hypertension, with a TIPS shunt in place, and ascites. This is been previously described Cholelithiasis Perisplenic embolic coils. Degenerative spondylosis (3) Cirrhosis Assessment & Plan: There is an orogastric tube in place, tip projected at the level of the fundus body junction, proximal port well distal to the expected level of the gastric esophageal junction. There is a TIPS shunt present. Bowel gas pattern is unremarkable. Vascular embolic coils are seen in the left upper quadrant. There is mild lumbar scoliotic deformity and considerable degenerative lumbar spondylosis * Significant interval reduction of ascites status post paracentesis. * Cirrhosis with indwelling patent TIPS shunt. Elevated velocities in the distal aspect of the TIPS shunt > 200 cm/s suggesting a degree of possible in-stent stenosis, especially given recurrent ascites. Correlation with prior ultrasound is essential to assess for interval change in velocities. Patient may benefit from interventional tip study with portal pressure measurements and possible TIPS angioplasty, especially if there is a significant elevation in velocities in the shunt upon comparison with baseline study. * Cholelithiasis. No radiographic evidence to suggest acute cholecystitis. Sonographic Ponce sign reported as negative. (4) Respiratory failure, acute Michael Merrill Oct 06, 2019 16:49
--- NOTE | 2019-10-06 17:00 | NUR ---
NURSE NOTES: Tube feeding started since no residual or signs of N&V was noted. Glucerna 1.5 is running at 10cc/hr. Will check residual.
--- NOTE | 2019-10-06 19:27 | NUR ---
NURSE NOTES: Called and left a message to Dr Gomez for A-fib with HR of 110-130's. Awaiting call back for new orders. Will endorse to lieutenant shift supervisor.
--- NOTE | 2019-10-06 19:28 | NUR ---
HAND-OFF: Report given to REINALDO Narvaez.
--- NOTE | 2019-10-06 19:30 | NUR ---
NURSE NOTES: received pt with eyes close, but easily arousable to tactile stimulation.Orally intubated on ac mode vent setting ac18 tv 500 p8 and 55% fi02, 02 sat >95%. ST on the 130s on the monitor, accdg to REINALDO Gomez came and visit the pt and seen the underlying rhythm, no orders were given. pt with IVf D5ns at 75ml/hr infusing to ALVINO PICC line. Site with drsg dry and intact. stage sacral decubitus were present and wheeping bilateral arms with fluids. also pt has brownish to blackish stool at this time. will clean up pt.
[2019-10-06] MEDS: Dyna-Hex 2% Top Sol 2oz TOPIC SCH (20:24)
--- NOTE | 2019-10-06 21:30 | NUR ---
NURSE NOTES: Pt had blackish greenish soft stool. cleaned up pt. sacral drsg changed.
--- NOTE | 2019-10-06 23:30 | NUR ---
NURSE NOTES: Turned q 2hrs prn with good skin care done.
[2019-10-07] VITALS (23 sets, daily range): BP systolic 85–125; BP diastolic 32–76
--- NOTE | 2019-10-07 01:00 | NUR ---
NURSE NOTES: condom came out , replaced with urinary pouch.
--- NOTE | 2019-10-07 03:00 | NUR ---
NURSE NOTES: Complete bath with bed changed done.
--- NOTE | 2019-10-07 05:00 | NUR ---
NURSE NOTES: pts afebrile , still on sT 120s bp stable.
--- NOTE | 2019-10-07 07:00 | NUR ---
NURSE NOTES: Dr Leavitt was here and was aware of pts condition.
--- NOTE | 2019-10-07 07:21 | Progress Note ---
DATE: 10/06/2019 CARDIOLOGY PROGRESS NOTE SUBJECTIVE: The patient remains orally intubated. Mechanically ventilated. Not tolerating NG-tube nutrition. Off pressors at this time. OBJECTIVE: VITAL SIGNS: Blood pressure 101/36, pulse 85, respiratory rate 23, and afebrile. LUNGS: Bilateral breath sounds with rhonchi. CARDIAC: Regular rhythm and rate. Normal S1 and S2. ABDOMEN: Soft. EXTREMITIES: Trace edema. LABORATORY DATA: Labs are still pending. ABG - 7.20, 57, and 73. Potassium 4.5, BUN 119, and creatinine 2.2. Albumin 1.4. IMPRESSION: 1. Sepsis. 2. Shock. 3. Respiratory failure. 4. Paroxysmal atrial fibrillation with rapid ventricular response. 5. Gastroparesis. 6. Healthcare-acquired pneumonia. 7. Acute and chronic diastolic congestive heart failure. He remains critical and guarded. PLAN: 1. Ventilator support, not weanable at this time. 2. Taper steroids. 3. No diuresis for now. 4. Volume support. 5. Avoid pressors. 6. Continue nicotine patch. 7. I would not pursue long-term amiodarone therapy due to underlying lung disease, but we will maintain his drugs for now until weaned off ventilator and PA pressures are improved. Ar Gomez M.D. DR: SAMM JOB#: [id number] CC:
[2019-10-07 07:36] LABS: ALANINE AMINOTRANSFERASE 33 U/L (12-78); ALBUMIN 1.4 G/DL (3.4-5.0); ALBUMIN/GLOBULIN RATIO 0.4 (1.0-2.7); ALKALINE PHOSPHATASE 175 U/L (46-116); ANION GAP 10 mmol/L (5-15); ASPARTATE AMINO TRANSFERASE 47 U/L (15-37); BILIRUBIN,TOTAL 2.3 MG/DL (0.2-1.0); BLOOD UREA NITROGEN 129 mg/dL (7-18); CALCIUM 7.2 MG/DL (8.5-10.1); CARBON DIOXIDE 22 MMOL/L (21-32); CHLORIDE 113 MMOL/L (98-107); CREATININE 1.8 MG/DL (0.55-1.30); POTASSIUM 4.7 MMOL/L (3.5-5.1); SODIUM 145 MMOL/L (136-145)
--- NOTE | 2019-10-07 07:36 | NUR ---
HAND-OFF: Report given to Lizabeth NAJERA.
--- NOTE | 2019-10-07 07:37 | General Progress Note ---
Assessment/Plan Problem List: (1) AMS (altered mental status) ICD Codes: R41.82 - Altered mental status, unspecified SNOMED: 184135522 (2) Sepsis ICD Codes: A41.9 - Sepsis, unspecified organism SNOMED: 08993819 (3) Shock ICD Codes: R57.9 - Shock, unspecified SNOMED: 11365433 (4) Cirrhosis ICD Codes: K74.60 - Unspecified cirrhosis of liver SNOMED: 06141626 (5) Hypoxia ICD Codes: R09.02 - Hypoxemia SNOMED: 780483082 (6) Respiratory failure, acute ICD Codes: J96.00 - Acute respiratory failure, unspecified whether with hypoxia or hypercapnia SNOMED: 62336242 Qualifiers: Qualified Codes: J96.01 - Acute respiratory failure with hypoxia Status: stable Assessment/Plan: vent support pressors as needed ivf stress dose steroids- weaning iv abx per id transfuse prn tube feeds as tolerated critical and guarded poor prognosis Subjective ROS Limited/Unobtainable: Yes Constitutional: Reports: malaise, weakness HEENT: Reports: no symptoms Cardiovascular: Reports: no symptoms Respiratory: Reports: shortness of breath, sputum Gastrointestinal/Abdominal: Reports: abdomen distended Genitourinary: Reports: no symptoms Neurologic/Psychiatric: Reports: pre-existing deficit Endocrine: Reports: no symptoms Hematologic/Lymphatic: Reports: anemia Allergies: Coded Allergies: PENICILLINS (Verified Allergy, Intermediate, Rash, 09/01/19) Patient stated at this time All Systems: reviewed and negative except above Subjective no events. no real change. remains intubated. off drips. multiple iv abx. tolerating feeds at low rate. labs pending. +edema Objective Last 24 Hour Vital Signs Date Time Temp Pulse Resp B/P (MAP) Pulse Ox O2 Delivery O2 Flow Rate FiO2 10/07/19 07:26 84 25 50 10/07/19 06:00 82 19 106/35 (58) 97 10/07/19 05:22 119 22 50 10/07/19 05:00 123 22 93/53 (66) 95 10/07/19 04:00 98.2 122 22 105/48 (67) 94 10/07/19 04:00 55 10/07/19 04:00 128 10/07/19 04:00 Mechanical Ventilator Mechanical Ventilator 10/07/19 03:00 117 20 89/41 (57) 94 10/07/19 02:39 118 23 55 10/07/19 02:00 119 19 85/56 (66) 95 10/07/19 01:07 122 22 55 10/07/19 01:00 123 20 88/43 (58) 95 10/07/19 00:00 55 10/07/19 00:00 122 10/07/19 00:00 Mechanical Ventilator Mechanical Ventilator 10/07/19 00:00 98.1 126 21 94/51 (65) 95 10/06/19 23:00 128 23 102/55 (71) 94 10/06/19 22:31 131 25 55 10/06/19 22:00 132 25 102/70 (81) 95 10/06/19 21:22 121 23 94 Mechanical Ventilator 55 122 22 55 10/06/19 21:00 132 25 102/70 (81) 95 10/06/19 20:00 55 10/06/19 20:00 130 10/06/19 20:00 Mechanical Ventilator Mechanical Ventilator 10/06/19 20:00 98.0 125 25 105/57 (73) 95 10/06/19 19:01 129 23 55 10/06/19 19:00 124 22 90/50 (63) 94 10/06/19 18:00 112 20 91/43 (59) 97 10/06/19 17:55 110 22 55 10/06/19 17:50 112 21 95 Mechanical Ventilator 55 10/06/19 17:00 124 28 99/46 (63) 98 10/06/19 16:00 Mechanical Ventilator Mechanical Ventilator 10/06/19 16:00 97.6 123 26 91/49 (63) 99 10/06/19 15:43 122 10/06/19 15:00 110 22 55 10/06/19 15:00 121 20 97/45 (62) 95 10/06/19 14:40 55 10/06/19 14:00 119 20 93/60 (71) 98 10/06/19 14:00 123 24 102/45 (64) 91 10/06/19 13:00 119 20 93/60 (71) 98 10/06/19 13:00 116 22 45 10/06/19 13:00 45 10/06/19 12:05 114 10/06/19 12:00 Mechanical Ventilator Mechanical Ventilator 10/06/19 12:00 97.3 118 20 91/39 (56) 98 10/06/19 12:00 50 10/06/19 11:02 103 21 50 10/06/19 11:00 125 10/06/19 11:00 119 20 94/42 (59) 97 10/06/19 10:00 117 24 100/52 (68) 97 10/06/19 10:00 79 20 102/36 (58) 98 10/06/19 09:51 113 21 50 10/06/19 09:34 50 10/06/19 09:00 79 20 102/36 (58) 98 10/06/19 08:00 97.5 82 20 101/38 (59) 99 10/06/19 08:00 Mechanical Ventilator Mechanical Ventilator 10/06/19 08:00 50 10/06/19 07:44 80 Intake and Output 10/06/19 10/07/19 19:00 07:00 Intake Total 1365.000 ml 975 ml Output Total 425 ml 410 ml Balance 940.000 ml 565 ml Free Water 30 ml IV Total 1285.000 ml 825 ml Tube Feeding 30 ml 120 ml Other 50 ml Output Urine Total 425 ml 410 ml # Bowel Movements 2 1 Laboratory Tests 10/06/19 08:49: Arterial Blood pH 7.209*L, Arterial Blood Partial Pressure CO2 57.6*H, Arterial Blood Partial Pressure O2 72.8L, Arterial Blood HCO3 22.5, Arterial Blood Oxygen Saturation 91.5L, Arterial Blood Base Excess -5.5L, Giovanny Test Positive 10/06/19 14:00: Arterial Blood pH 7.234*L, Arterial Blood Partial Pressure CO2 52.4H, Arterial Blood Partial Pressure O2 58.4L, Arterial Blood HCO3 21.7L, Arterial Blood Oxygen Saturation 85.6*L, Arterial Blood Base Excess -5.8L, Giovanny Test Positive 10/07/19 05:20: White Blood Count [Pending], Red Blood Count [Pending], Hemoglobin [Pending], Hematocrit [Pending], Mean Corpuscular Volume [Pending], Mean Corpuscular Hemoglobin [Pending], Mean Corpuscular Hemoglobin Concent [Pending], Red Cell Distribution Width [Pending], Platelet Count [Pending], Mean Platelet Volume [ Pending], Neutrophils (%) (Auto) [Pending], Lymphocytes (%) (Auto) [Pending], Monocytes (%) (Auto) [Pending], Eosinophils (%) (Auto) [Pending], Basophils (%) (Auto) [Pending], Sodium Level [Pending], Potassium Level [Pending], Chloride Level [Pending], Carbon Dioxide Level [Pending], Blood Urea Nitrogen [Pending], Creatinine [Pending], Estimat Glomerular Filtration Rate [Pending], Glucose Level [Pending], Calcium Level [Pending], Total Bilirubin [Pending], Aspartate Amino Transf (AST/SGOT) [Pending], Alanine Aminotransferase (ALT/SGPT) [Pending] , Alkaline Phosphatase [Pending], Total Protein [Pending], Albumin [Pending], Globulin [Pending] Height (Feet): 5 Height (Inches): 8.00 Weight (Pounds): 125 Objective General Appearance: WD/WN, lethargic. orally intubated Neck: supple Cardiovascular: regular rhythm Respiratory/Chest: lungs td rhonchi Abdomen: normal bowel sounds, non tender. small reducible periumbilical hernia Edema: no edema noted Arm (L), no edema noted Arm (R), no edema noted Leg (L), no edema noted Leg (R), no edema noted Pedal (L), no edema noted Pedal (R), no edema noted Generalized Henry Leavitt MD Oct 07, 2019 07:37
[2019-10-07 07:55] LABS: HEMATOCRIT 26.1 % (42.0-52.0); HEMOGLOBIN 8.5 G/DL (14.2-18.0); MEAN CORPUSCULAR VOLUME 103 FL (80-99); PLATELET COUNT 23 K/UL (150-450); RED BLOOD COUNT 2.53 M/UL (4.70-6.10); RED CELL DISTRIBUTION WIDTH 15.2 % (11.6-14.8)
[2019-10-07 08:00] LABS: WHITE BLOOD COUNT 49.6 K/UL (4.8-10.8)
--- NOTE | 2019-10-07 08:00 | NUR ---
NURSE NOTES: Report received from REINALDO Narvaez. Pt laying in bed, no signs of acute distress noted. ETT 7.5 noted @ 24 cm lip line, with vent settings AC 18, VT 500, Peep 5, FiO2 50% @ 97% O2 sat. Bilateral inspiratory/expiratory mild rhonchi noted on auscultation with diminished lung sounds. NSR on classroom monitor; HR in the 80s with weak bilateral pulses. Temp: 98.[address] with glucerna 1.5 @ goal rate of 20 ml/hr with no residual. Abdomen is round, soft, nontender to touch with hypoactive bowel sounds in all four quadrants. Umbilical hernia noted. Sacral partial thickness wound covered with optifoam, dry and intact. Bilateral soft wrist restraints noted to prevent self extubation. No skin breakdown noted around restraints. Bilateral upper extremities are weeping. Right upper arm PICC with IV fluid D%NS running @ 75 ml/hr. Head of bed @ 30 degrees. Bed in lowest position, brakes engaged, siderails x3, bed alarm on, and call light within reach. Pt in stable condition at this time; will continue to monitor.
[2019-10-07 08:29] LABS: HEMATOCRIT 25.6 % (42.0-52.0); HEMOGLOBIN 7.7 G/DL (14.2-18.0); WHITE BLOOD COUNT 43.7 K/UL (4.8-10.8)
[2019-10-07 08:30] LABS: MEAN CORPUSCULAR VOLUME 111 FL (80-99); PLATELET COUNT 22 K/UL (150-450)
--- NOTE | 2019-10-07 08:32 | Infectious Diseases Prog Note ---
Assessment/Plan Assessment/Plan IMPRESSION: 1. MRSA & KPC pneumonia, 2. Klebsiella UTI 3. Cirrhosis with ascites. 4. MRSA colonization. 5. Anemia. 6. Thrombocytopenia. 7. Tachycardia 8. Hypercapnic respiratory failure. 9. Leukocytosis, worsening 10 Staph aureus, MRSA sepsis 11. acute renal failure 12. septic shock 13. Lactic acidosis 14. Thrombocytopenia RECOMMENDATIONS: Continue Tygacil &Vancomycin Change colistin inhaler to IV Polymyxin B Poor prognosis Case was D/W RN Subjective ROS Limited/Unobtainable: Yes Constitutional: Denies: fever Neurologic: Reports: other - on restraint Allergies: Coded Allergies: PENICILLINS (Verified Allergy, Intermediate, Rash, 09/01/19) Patient stated at this time Objective Vital Signs Last 24 Hour Vital Signs Date Time Temp Pulse Resp B/P (MAP) Pulse Ox O2 Delivery O2 Flow Rate FiO2 10/07/19 07:26 84 25 50 10/07/19 06:00 82 19 106/35 (58) 97 10/07/19 05:22 119 22 50 10/07/19 05:00 123 22 93/53 (66) 95 10/07/19 04:00 98.2 122 22 105/48 (67) 94 10/07/19 04:00 55 10/07/19 04:00 128 10/07/19 04:00 Mechanical Ventilator Mechanical Ventilator 10/07/19 03:00 117 20 89/41 (57) 94 10/07/19 02:39 118 23 55 10/07/19 02:00 119 19 85/56 (66) 95 10/07/19 01:07 122 22 55 10/07/19 01:00 123 20 88/43 (58) 95 10/07/19 00:00 55 10/07/19 00:00 122 10/07/19 00:00 Mechanical Ventilator Mechanical Ventilator 10/07/19 00:00 98.1 126 21 94/51 (65) 95 10/06/19 23:00 128 23 102/55 (71) 94 10/06/19 22:31 131 25 55 10/06/19 22:00 132 25 102/70 (81) 95 10/06/19 21:22 121 23 94 Mechanical Ventilator 55 122 22 55 10/06/19 21:00 132 25 102/70 (81) 95 10/06/19 20:00 55 10/06/19 20:00 130 1/22/20 20:00 Mechanical Ventilator Mechanical Ventilator 10/06/19 20:00 98.0 125 25 105/57 (73) 95 10/06/19 19:01 129 23 55 10/06/19 19:00 124 22 90/50 (63) 94 10/06/19 18:00 112 20 91/43 (59) 97 10/06/19 17:55 110 22 55 10/06/19 17:50 112 21 95 Mechanical Ventilator 55 10/06/19 17:00 124 28 99/46 (63) 98 10/06/19 16:00 Mechanical Ventilator Mechanical Ventilator 10/06/19 16:00 97.6 123 26 91/49 (63) 99 10/06/19 15:43 122 10/06/19 15:00 110 22 55 10/06/19 15:00 121 20 97/45 (62) 95 10/06/19 14:40 55 10/06/19 14:00 119 20 93/60 (71) 98 10/06/19 14:00 123 24 102/45 (64) 91 10/06/19 13:00 119 20 93/60 (71) 98 10/06/19 13:00 116 22 45 10/06/19 13:00 45 10/06/19 12:05 114 10/06/19 12:00 Mechanical Ventilator Mechanical Ventilator 10/06/19 12:00 97.3 118 20 91/39 (56) 98 10/06/19 12:00 50 10/06/19 11:02 103 21 50 10/06/19 11:00 125 10/06/19 11:00 119 20 94/42 (59) 97 10/06/19 10:00 117 24 100/52 (68) 97 10/06/19 10:00 79 20 102/36 (58) 98 10/06/19 09:51 113 21 50 10/06/19 09:34 50 10/06/19 09:00 79 20 102/36 (58) 98 Height (Feet): 5 Height (Inches): 8.00 Weight (Pounds): 125 HEENT: other - orally intubated Respiratory/Chest: decreased breath sounds, other - on ventilator Cardiovascular: normal rate, other - PICC line Abdomen: soft, non tender, other - orogastric tube feeding Extremities: other - arms edema Neurologic/Psychiatric: unresponsiveness Microbiology Date/Time Source Procedure Growth Status 10/05/19 12:45 Sputum Gram Stain Pending Resulted 10/05/19 12:45 Sputum Culture - Preliminary Gram Negative Bacillus 1 Resulted Laboratory Tests Test 10/06/19 08:49 10/06/19 14:00 10/07/19 05:20 Arterial Blood pH 7.209 (7.350-7.450) 7.234 (7.350-7.450) Arterial Blood Partial Pressure CO2 57.6 mmHg (35.0-45.0) *H 52.4 mmHg (35.0-45.0) H Arterial Blood Partial Pressure O2 72.8 mmHg (75.0-100.0) L 58.4 mmHg (75.0-100.0) L Arterial Blood HCO3 22.5 mmol/L (22.0-26.0) 21.7 mmol/L (22.0-26.0) L Arterial Blood Oxygen Saturation 91.5 % (95-100) L 85.6 % (95-100) *L Arterial Blood Base Excess -5.5 (-2-2) L -5.8 (-2-2) L Giovanny Test Positive Positive White Blood Count 49.6 K/UL (4.8-10.8) *H Red Blood Count 2.53 M/UL (4.70-6.10) L Hemoglobin 8.5 G/DL (14.2-18.0) L Hematocrit 26.1 % (42.0-52.0) L Mean Corpuscular Volume 103 FL (80-99) H Mean Corpuscular Hemoglobin 33.6 PG (27.0-31.0) H Mean Corpuscular Hemoglobin Concent 32.7 G/DL (32.0-36.0) Red Cell Distribution Width 15.2 % (11.6-14.8) H Platelet Count 23 K/UL (150-450) L Mean Platelet Volume 13.3 FL (6.5-10.1) H Neutrophils (%) (Auto) % (45.0-75.0) Lymphocytes (%) (Auto) % (20.0-45.0) Monocytes (%) (Auto) % (1.0-10.0) Eosinophils (%) (Auto) % (0.0-3.0) Basophils (%) (Auto) % (0.0-2.0) Neutrophils % (Manual) Pending Lymphocytes % (Manual) Pending Platelet Estimate Pending Platelet Morphology Pending Sodium Level 145 MMOL/L (136-145) Potassium Level 4.7 MMOL/L (3.5-5.1) Chloride Level 113 MMOL/L (98-107) H Carbon Dioxide Level 22 MMOL/L (21-32) Anion Gap 10 mmol/L (5-15) Blood Urea Nitrogen 129 mg/dL (7-18) H Creatinine 1.8 MG/DL (0.55-1.30) H Estimat Glomerular Filtration Rate 38.7 mL/min (>60) Glucose Level 128 MG/DL (74-106) H Calcium Level 7.2 MG/DL (8.5-10.1) L Total Bilirubin 2.3 MG/DL (0.2-1.0) H Direct Bilirubin Pending Aspartate Amino Transf (AST/SGOT) 47 U/L (15-37) H Alanine Aminotransferase (ALT/SGPT) 33 U/L (12-78) Alkaline Phosphatase 175 U/L (46-116) H Total Protein 5.1 G/DL (6.4-8.2) L Albumin 1.4 G/DL (3.4-5.0) L Globulin 3.7 g/dL Albumin/Globulin Ratio 0.4 (1.0-2.7) L Current Medications Medications (Trade) Dose Ordered Sig/Akash Route PRN Reason Start Time Stop Time Status Last Admin Dose Admin Acetaminophen (Tylenol) 650 mg Q6H PRN NG FEVER 09/30/19 10:30 10/30/19 10:29 10/06/19 10:47 Amiodarone HCl (Cordarone) 200 mg EVERY 12 HOURS GT 10/05/19 09:00 11/04/19 08:59 10/06/19 20:47 Chlorhexidine Gluconate (Tammy-Hex 2%) 1 applic DAILY@1999 TOPIC 10/04/19 20:00 11/03/19 19:59 10/06/19 20:24 Colistimethate Sodium (Colistin *inhalation use only*) 75 mg Q12HR@1000,2200 INH 10/06/19 11:00 10/13/19 10:59 10/06/19 21:22 Dextrose/Sodium Chloride 1,000 ml @ 75 mls/hr [id number] IV 10/02/19 08:15 11/01/19 08:14 10/06/19 16:31 Diphenhydramine HCl (Benadryl) 25 mg Q6H PRN ORAL Itching 09/28/19 13:25 10/28/19 13:24 09/29/19 10:09 Hydrocortisone (Solu-CORTEF) 30 mg DAILY IV 10/07/19 09:00 11/06/19 08:59 Lidocaine HCl (Xylocaine Viscous) 15 ml Q4H PRN ORAL For Pain 10/06/19 08:00 11/05/19 07:59 Metoclopramide HCl (Reglan) 5 mg Q6H PRN ORAL Nausea & Vomiting 10/06/19 07:00 11/05/19 06:59 10/06/19 10:47 Multivitamins (Multivitamins) 1 tab DAILY ORAL 09/29/19 09:00 10/22/19 08:59 10/06/19 09:11 Nicotine (Nicoderm) 1 patch Q24H TDERMAL 09/29/19 01:00 10/29/19 00:59 10/07/19 01:37 Pantoprazole (Protonix) 40 mg ACBREAKFAST ORAL 09/29/19 06:30 10/22/19 08:59 10/07/19 06:03 Sodium Chloride 500 ml @ 999 mls/hr Q31M PRN IV SBP <95 10/03/19 21:15 11/02/19 21:14 10/03/19 23:20 Thiamine HCl (Vitamin B1) 100 mg DAILY ORAL 09/29/19 09:00 10/22/19 08:59 10/06/19 09:10 Tigecycline 50 mg/ Sodium Chloride 110 ml @ 220 mls/hr EVERY 12 HOURS IVPB 10/02/19 21:00 10/09/19 20:59 10/06/19 20:48 Vancomycin HCl (Vanco rx to dose) 1 ea DAILY PRN MISC Per rx protocol 10/02/19 10:30 11/01/19 10:29 Jamie Swanson MD Oct 07, 2019 08:32
[2019-10-07 08:53] LABS: BILIRUBIN,DIRECT 1.1 MG/DL (0.0-0.3)
[2019-10-07] MEDS: Hydrocortisone 100mg Inj IV SCH (09:32)
[2019-10-07] MEDS: Amiodarone 200mg tab GT SCH ×2 (09:32→22:14)
[2019-10-07] MEDS: D5NS 1,000 ML IV SCH ×2 (09:33→22:15)
[2019-10-07] MEDS: Thiamine 100mg tab ORAL SCH (09:34)
[2019-10-07] MEDS: Tigecycline 50 MG in NS 110 ML IVPB SCH ×2 (09:34→22:14)
--- NOTE | 2019-10-07 10:02 | NUR ---
NURSE NOTES: 16 Fr schafer inserted. Light yellow urine draining to gravity @ foot of bed. Pt tolerated procedure well.
[2019-10-07] MEDS: Polymyxin B Sulfate 250,000 UNITS in D5W 275 ML IV SCH ×2 (10:20→22:14)
--- NOTE | 2019-10-07 12:00 | NUR ---
NURSE NOTES: Pt was cleaned, BM x1, liquid, black, tarry stool. Pt was repositioned. NS is being infused per PRN order for low SBP below 95. Oral care was done and pt suctioned.
--- NOTE | 2019-10-07 15:15 | Pulmonology Progress Note ---
Assessment/Plan Assessment/Plan Impression - MRSA Pneumonia - Persistent leucocytosis - Hypoxic respiratory Failure - CHFpEF - Atrial Fibrillation - Cirrhosis, h/o ETOH Use, ascites s/p Paracentesis - Homeless - Enterobacter UTI s/p rx - Thrombocytopenia - Anasarca - tachycardia - overwhelming sepsis +++ positive cultures PLAN still on high fio2- try to decrease currently on vent on hydrocortisone and taper as able defer bronchoscopy with worsening acidemia currently unstable and extremely critical remains ill taper oxygen and monitor CXR and ABG routine hyperventilate in ICU prognosis remains poor still too ill for intervention impression, plan, and exam edited and reviewed in detail care discussed with RN Subjective ROS Limited/Unobtainable: Yes Allergies: Coded Allergies: PENICILLINS (Verified Allergy, Intermediate, Rash, 09/01/19) Patient stated at this time Subjective care noted on vent on full vent support/ cxr worse and ABG with significant acidemia O2 at 50% on AC 18 Objective Last 24 Hour Vital Signs Date Time Temp Pulse Resp B/P (MAP) Pulse Ox O2 Delivery O2 Flow Rate FiO2 10/07/19 12:24 81 25 95/34 (54) 97 10/07/19 12:00 98.2 81 20 88/37 (54) 95 10/07/19 12:00 55 10/07/19 12:00 Mechanical Ventilator Mechanical Ventilator 10/07/19 11:22 84 21 50 10/07/19 11:00 83 21 93/32 (52) 98 10/07/19 10:00 89 29 125/54 (77) 97 10/07/19 09:15 84 21 50 10/07/19 09:00 87 24 114/47 (69) 97 10/07/19 08:00 86 10/07/19 08:00 Mechanical Ventilator Mechanical Ventilator 10/07/19 08:00 55 10/07/19 08:00 85 23 115/38 (63) 97 10/07/19 07:26 84 25 50 10/07/19 07:00 98.0 85 23 116/76 (89) 96 10/07/19 06:00 82 19 106/35 (58) 97 10/07/19 05:22 119 22 50 10/07/19 05:00 123 22 93/53 (66) 95 10/07/19 04:00 98.2 122 22 105/48 (67) 94 10/07/19 04:00 55 1/23/20 04:00 128 10/07/19 04:00 Mechanical Ventilator Mechanical Ventilator 10/07/19 03:00 117 20 89/41 (57) 94 10/07/19 02:39 118 23 55 10/07/19 02:00 119 19 85/56 (66) 95 10/07/19 01:07 122 22 55 10/07/19 01:00 123 20 88/43 (58) 95 10/07/19 00:00 55 10/07/19 00:00 122 10/07/19 00:00 Mechanical Ventilator Mechanical Ventilator 10/07/19 00:00 98.1 126 21 94/51 (65) 95 10/06/19 23:00 128 23 102/55 (71) 94 10/06/19 22:31 131 25 55 10/06/19 22:00 132 25 102/70 (81) 95 10/06/19 21:22 121 23 94 Mechanical Ventilator 55 122 22 55 10/06/19 21:00 132 25 102/70 (81) 95 10/06/19 20:00 55 10/06/19 20:00 130 10/06/19 20:00 Mechanical Ventilator Mechanical Ventilator 10/06/19 20:00 98.0 125 25 105/57 (73) 95 10/06/19 19:01 129 23 55 10/06/19 19:00 124 22 90/50 (63) 94 10/06/19 18:00 112 20 91/43 (59) 97 10/06/19 17:55 110 22 55 10/06/19 17:50 112 21 95 Mechanical Ventilator 55 10/06/19 17:00 124 28 99/46 (63) 98 10/06/19 16:00 Mechanical Ventilator Mechanical Ventilator 10/06/19 16:00 97.6 123 26 91/49 (63) 99 10/06/19 15:43 122 Intake and Output 10/06/19 10/07/19 19:00 07:00 Intake Total 1365.000 ml 995 ml Output Total 425 ml 430 ml Balance 940.000 ml 565 ml Free Water 30 ml IV Total 1285.000 ml 825 ml Tube Feeding 30 ml 140 ml Other 50 ml Output Urine Total 425 ml 430 ml # Bowel Movements 2 1 Objective WDWN NAD coarse breath sounds bilaterally without rhonchi or wheeze [id number] without MRG NABS nontender no HSM some distention no CC some edema nonfocal sedated Microbiology Date/Time Source Procedure Growth Status 10/05/19 12:45 Sputum Gram Stain - Final Resulted 10/05/19 12:45 Sputum Culture - Preliminary Klebsiella Pneumoniae Resulted Laboratory Tests 10/07/19 05:20: White Blood Count 49.6*H, Red Blood Count 2.53L, Hemoglobin 8.5L, Hematocrit 26.1L, Mean Corpuscular Volume 103H, Mean Corpuscular Hemoglobin 33.6H, Mean Corpuscular Hemoglobin Concent 32.7, Red Cell Distribution Width 15.2H, Platelet Count 23L, Mean Platelet Volume 13.3H, Neutrophils (%) (Auto) , Lymphocytes (%) (Auto) , Monocytes (%) (Auto) , Eosinophils (%) (Auto) , Basophils (%) (Auto) , Differential Total Cells Counted 100, Neutrophils % ( Manual) 97H, Lymphocytes % (Manual) 1L, Monocytes % (Manual) 1, Eosinophils % ( Manual) 1, Basophils % (Manual) 0, Band Neutrophils 0, Platelet Estimate DecreasedL, Platelet Morphology Normal, Hypochromasia 2+, Anisocytosis 1+, Macrocytosis 1+, Spherocytes 1+, Sodium Level 145, Potassium Level 4.7, Chloride Level 113H, Carbon Dioxide Level 22, Anion Gap 10, Blood Urea Nitrogen 129H, Creatinine 1.8H, Estimat Glomerular Filtration Rate 38.7, Glucose Level 128H, Calcium Level 7.2L, Total Bilirubin 2.3H, Direct Bilirubin 1.1H, Aspartate Amino Transf (AST/SGOT) 47H, Alanine Aminotransferase (ALT/SGPT) 33, Alkaline Phosphatase 175H, Total Protein 5.1L, Albumin 1.4L, Globulin 3.7, Albumin/Globulin Ratio 0.4L Current Medications Medications (Trade) Dose Ordered Sig/Akash Route PRN Reason Start Time Stop Time Status Last Admin Dose Admin Acetaminophen (Tylenol) 650 mg Q6H PRN NG FEVER 09/30/19 10:30 10/30/19 10:29 10/06/19 10:47 Amiodarone HCl (Cordarone) 200 mg EVERY 12 HOURS GT 10/05/19 09:00 11/04/19 08:59 10/07/19 09:32 Chlorhexidine Gluconate (Tammy-Hex 2%) 1 applic DAILY@2000 TOPIC 10/04/19 20:00 11/03/19 19:59 10/06/19 20:24 Dextrose/Sodium Chloride 1,000 ml @ 75 mls/hr [id number] IV 10/02/19 08:15 11/01/19 08:14 10/07/19 09:33 Diphenhydramine HCl (Benadryl) 25 mg Q6H PRN ORAL Itching 09/28/19 13:25 10/28/19 13:24 09/29/19 10:09 Hydrocortisone (Solu-CORTEF) 30 mg DAILY IV 10/07/19 09:00 11/06/19 08:59 10/07/19 09:32 Lidocaine HCl (Xylocaine Viscous) 15 ml Q4H PRN ORAL For Pain 10/06/19 08:00 11/05/19 07:59 Metoclopramide HCl (Reglan) 5 mg Q6H PRN ORAL Nausea & Vomiting 10/06/19 07:00 11/05/19 06:59 10/06/19 10:47 Multivitamins (Multivitamins) 1 tab DAILY ORAL 09/29/19 09:00 10/22/19 08:59 10/07/19 09:32 Nicotine (Nicoderm) 1 patch Q24H TDERMAL 09/29/19 01:00 10/29/19 00:59 10/07/19 01:37 Pantoprazole (Protonix) 40 mg ACBREAKFAST ORAL 09/29/19 06:30 10/22/19 08:59 10/07/19 06:03 Polymyxin B Sulfate 060708 units/Dextrose 275 ml @ 275 mls/hr EVERY 12 HOURS IV 10/07/19 10:00 10/14/19 09:59 10/07/19 10:20 Sodium Chloride 500 ml @ 999 mls/hr Q31M PRN IV SBP <95 10/03/19 21:15 11/02/19 21:14 10/03/19 23:20 Thiamine HCl (Vitamin B1) 100 mg DAILY ORAL 09/29/19 09:00 10/22/19 08:59 10/07/19 09:34 Tigecycline 50 mg/ Sodium Chloride 110 ml @ 220 mls/hr EVERY 12 HOURS IVPB 10/02/19 21:00 10/09/19 20:59 10/07/19 09:34 Vancomycin HCl (Vanco rx to dose) 1 ea DAILY PRN MISC Per rx protocol 10/02/19 10:30 11/01/19 10:29 Simon Lopez MD Oct 07, 2019 15:15
--- NOTE | 2019-10-07 15:55 | Surgery Progress Note ---
Surgery Progress Note Subjective Additional Comments ill appearing in ICU tolerating tf at 50cc/hr on support Objective Last 24 Hour Vital Signs Date Time Temp Pulse Resp B/P (MAP) Pulse Ox O2 Delivery O2 Flow Rate FiO2 10/07/19 12:24 81 25 95/34 (54) 97 10/07/19 12:00 98.2 81 20 88/37 (54) 95 10/07/19 12:00 55 10/07/19 12:00 Mechanical Ventilator Mechanical Ventilator 10/07/19 11:22 84 21 50 10/07/19 11:00 83 21 93/32 (52) 98 10/07/19 10:00 89 29 125/54 (77) 97 10/07/19 09:15 84 21 50 10/07/19 09:00 87 24 114/47 (69) 97 10/07/19 08:00 86 10/07/19 08:00 Mechanical Ventilator Mechanical Ventilator 10/07/19 08:00 55 10/07/19 08:00 85 23 115/38 (63) 97 10/07/19 07:26 84 25 50 10/07/19 07:00 98.0 85 23 116/76 (89) 96 10/07/19 06:00 82 19 106/35 (58) 97 10/07/19 05:22 119 22 50 10/07/19 05:00 123 22 93/53 (66) 95 10/07/19 04:00 98.2 122 22 105/48 (67) 94 10/07/19 04:00 55 10/07/19 04:00 128 10/07/19 04:00 Mechanical Ventilator Mechanical Ventilator 10/07/19 03:00 117 20 89/41 (57) 94 10/07/19 02:39 118 23 55 10/07/19 02:00 119 19 85/56 (66) 95 10/07/19 01:07 122 22 55 10/07/19 01:00 123 20 88/43 (58) 95 10/07/19 00:00 55 10/07/19 00:00 122 10/07/19 00:00 Mechanical Ventilator Mechanical Ventilator 10/07/19 00:00 98.1 126 21 94/51 (65) 95 10/06/19 23:00 128 23 102/55 (71) 94 10/06/19 22:31 131 25 55 10/06/19 22:00 132 25 102/70 (81) 95 10/06/19 21:22 121 23 94 Mechanical Ventilator 55 122 22 55 10/06/19 21:00 132 25 102/70 (81) 95 10/06/19 20:00 55 10/06/19 20:00 130 10/06/19 20:00 Mechanical Ventilator Mechanical Ventilator 10/06/19 20:00 98.0 125 25 105/57 (73) 95 10/06/19 19:01 129 23 55 10/06/19 19:00 124 22 90/50 (63) 94 10/06/19 18:00 112 20 91/43 (59) 97 10/06/19 17:55 110 22 55 10/06/19 17:50 112 21 95 Mechanical Ventilator 55 10/06/19 17:00 124 28 99/46 (63) 98 10/06/19 16:00 Mechanical Ventilator Mechanical Ventilator 10/06/19 16:00 97.6 123 26 91/49 (63) 99 I&O Intake and Output 10/06/19 10/07/19 19:00 07:00 Intake Total 1365.000 ml 995 ml Output Total 425 ml 430 ml Balance 940.000 ml 565 ml Free Water 30 ml IV Total 1285.000 ml 825 ml Tube Feeding 30 ml 140 ml Other 50 ml Output Urine Total 425 ml 430 ml # Bowel Movements 2 1 Dressing: saturated, other Wound: other Drains: other Cardiovascular: RSR Respiratory: decreased breath sounds Abdomen: soft, present bowel sounds Extremities: no cyanosis Laboratory Tests Test 10/07/19 05:20 White Blood Count 49.6 K/UL (4.8-10.8) *H Red Blood Count 2.53 M/UL (4.70-6.10) L Hemoglobin 8.5 G/DL (14.2-18.0) L Hematocrit 26.1 % (42.0-52.0) L Mean Corpuscular Volume 103 FL (80-99) H Mean Corpuscular Hemoglobin 33.6 PG (27.0-31.0) H Mean Corpuscular Hemoglobin Concent 32.7 G/DL (32.0-36.0) Red Cell Distribution Width 15.2 % (11.6-14.8) H Platelet Count 23 K/UL (150-450) L Mean Platelet Volume 13.3 FL (6.5-10.1) H Neutrophils (%) (Auto) % (45.0-75.0) Lymphocytes (%) (Auto) % (20.0-45.0) Monocytes (%) (Auto) % (1.0-10.0) Eosinophils (%) (Auto) % (0.0-3.0) Basophils (%) (Auto) % (0.0-2.0) Differential Total Cells Counted 100 Neutrophils % (Manual) 97 % (45-75) H Lymphocytes % (Manual) 1 % (20-45) L Monocytes % (Manual) 1 % (1-10) Eosinophils % (Manual) 1 % (0-3) Basophils % (Manual) 0 % (0-2) Band Neutrophils 0 % (0-8) Platelet Estimate Decreased L Platelet Morphology Normal Hypochromasia 2+ Anisocytosis 1+ Macrocytosis 1+ Spherocytes 1+ Sodium Level 145 MMOL/L (136-145) Potassium Level 4.7 MMOL/L (3.5-5.1) Chloride Level 113 MMOL/L (98-107) H Carbon Dioxide Level 22 MMOL/L (21-32) Anion Gap 10 mmol/L (5-15) Blood Urea Nitrogen 129 mg/dL (7-18) H Creatinine 1.8 MG/DL (0.55-1.30) H Estimat Glomerular Filtration Rate 38.7 mL/min (>60) Glucose Level 128 MG/DL (74-106) H Calcium Level 7.2 MG/DL (8.5-10.1) L Total Bilirubin 2.3 MG/DL (0.2-1.0) H Direct Bilirubin 1.1 MG/DL (0.0-0.3) H Aspartate Amino Transf (AST/SGOT) 47 U/L (15-37) H Alanine Aminotransferase (ALT/SGPT) 33 U/L (12-78) Alkaline Phosphatase 175 U/L (46-116) H Total Protein 5.1 G/DL (6.4-8.2) L Albumin 1.4 G/DL (3.4-5.0) L Globulin 3.7 g/dL Albumin/Globulin Ratio 0.4 (1.0-2.7) L Plan Problems: (1) Sepsis Assessment & Plan: Pt presented hyperpigmentation sacrum with loose dry/ peeling skin. Non -tender when palpated.Scrotum is erythematous. Pt is incontinent of B and B per staff. Condom cath placed on pt by primary nurse. Pt educated on wound prevention and encouraged to frequently turn ,or at least hourly to prevent skin breakdown. No other skin concerns noted. Tx.plan: Apply Moisture Barrier Paste to sacrum. Cover with Optifoam drsg. Change every 3 days and prn. Apply Cavilon Skin Barrier to both heels. Cover each heel with Optifoam drsg. Change every 7 days and prn. Reposition at least every 2hours or as tolerated. Off-load heels with pillow. DAILY ESTIMATED NEEDS: Needs based on Liver, Pulmonary, Critical care 55kg 22-30 kcals/kg 0151-8149 total kcals 1.25-2 g protein/kg 69-110 g total protein 25-30 mL/kg 9176-9492 total fluid mLs NUTRITION DIAGNOSIS: * Swallowing difficulty R/T dysphagia, respiratory status as evidenced by pt on [facility] soft finely chopped texture- was upgraded to Soft easy chew, was mostly on BIPAP, on non-rebreather during meals-> now orally intubated in ICU, non oral feeds. * Decreased sodium and fat needs r/t clinical status, ascites, as evidenced by s/p paracentesis, elev LFT's, elev T bili (INACTIVE) CURRENT TF:Glucerna 1.5 @20ml- held ENTERAL NUTRITION RECOMMENDATIONS: WHEN HD STABLE: Vital AF 1.2 @ 50ml/hr x 24 hrs to provide 1200ml, 1440kcal, 90g prot, 973ml free water * WHEN PT HEMODYNAMICALLY STABLE: -> initiate Vital AF 1.2 @ 10ml/hr x 6 hrs -> advance 10ml q 4-6 hrs as tolerated -> HOB over 30 degrees/ water flush per MD WITHOUT HD STABILTY: consider trophic feeding of Vital AF 1.2 @ 5-10ml/hr if able to raise bed >30 degrees ADDITIONAL RECOMMENDATIONS: 1) Obtain daily standing weight for accuracy or calibrated bedscale wt current bedscale wt 115 bs vs initial bedscale wt 158lbs 2) Monitor HD stability: on NE @ 30mcg-> now @8mcg-> now off LA trending up (4.0) 3) Monitor renal fxn and liver fxn: creat and T bili trend up 4) WC eval for sacral DTPI (2) Shock Assessment & Plan: Pulmonary arterial opacification is somewhat suboptimal, and small peripheral emboli could be missed. In addition, there is some image degradation due to motion artifact which also precludes exclusion of small peripheral emboli. No gross large vessel pulmonary emboli are demonstrated. The left main pulmonary artery is ectatic, measuring up to 2.5 cm. No isolated right ventricular dilatation. There is generalized four-chamber cardiomegaly. No evidence of thoracic aortic aneurysm or dissection. Normal caliber and branching anatomy of the right neck vessels is noted. There is extensive pulmonary parenchymal disease. There is extensive groundglass opacity involving most of the upper lobes. There is extensive interstitial septal thickening involving the lower lobes, as well as considerable atelectasis and confluent opacity. There is of bronchiectasis, subpleural blebs, and bilateral peripheral honeycombing are also present. There are bilateral small pleural effusions. The extent of the pulmonary parenchymal disease at the lung bases is greater than that which was visualized on abdomen CT scan of 08/23/2019 There is considerable edema of the mediastinal and epicardial fat, but no definite pericardial effusion is demonstrated. No mediastinal or hilar mass or adenopathy. Grossly unremarkable esophagus. The visualized thyroid is unremarkable. No axillary or chest wall mass or adenopathy. There is mild height loss of the T8 vertebral body. It is slightly sclerotic, demonstrates considerable superior and inferior endplate irregularity. There is degenerative spondylosis elsewhere in the thoracic spine. Included upper abdominal anatomy demonstrates atrophic liver with surface nodularity. There is a TIPS shunt in place which is probably patent. There is hypertrophy of the hepatic arteries. Gallstones are noted. There is considerable ascites fluid present. What are probably embolic coils are seen in the region of the splenic capsule. Impression: Somewhat suboptimal pulmonary arterial opacification as well as limitation of exam by motion artifact. Small peripheral emboli not completely excludable. No gross large vessel central pulmonary emboli demonstrated. Mildly dilated left main pulmonary artery, suggestive of but not diagnostic for pulmonary arterial hypertension Cardiomegaly Evidence of anasarca, with diffuse body wall and mediastinal edema, small bilateral pleural effusions, ascites Extensive pulmonary parenchymal disease, as described, with groundglass opacity, interstitial septal thickening, bronchiectasis, subpleural blebs, and peripheral honeycombing. Given the finding of cardiomegaly and anasarca, findings most likely on the basis of pulmonary edema. Pneumonia is also a possibility. In addition, there is probably underlying component of chronic fibrotic change. T8 vertebral body loss of height. This may reflect age-indeterminate compression fracture deformity versus degenerative remodeling. Consider MRI for better characterization if clinically relevant Evidence of hepatic cirrhosis. Evidence of portal hypertension, with a TIPS shunt in place, and ascites. This is been previously described Cholelithiasis Perisplenic embolic coils. Degenerative spondylosis (3) Cirrhosis Assessment & Plan: There is an orogastric tube in place, tip projected at the level of the fundus body junction, proximal port well distal to the expected level of the gastric esophageal junction. There is a TIPS shunt present. Bowel gas pattern is unremarkable. Vascular embolic coils are seen in the left upper quadrant. There is mild lumbar scoliotic deformity and considerable degenerative lumbar spondylosis * Significant interval reduction of ascites status post paracentesis. * Cirrhosis with indwelling patent TIPS shunt. Elevated velocities in the distal aspect of the TIPS shunt > 200 cm/s suggesting a degree of possible in-stent stenosis, especially given recurrent ascites. Correlation with prior ultrasound is essential to assess for interval change in velocities. Patient may benefit from interventional tip study with portal pressure measurements and possible TIPS angioplasty, especially if there is a significant elevation in velocities in the shunt upon comparison with baseline study. * Cholelithiasis. No radiographic evidence to suggest acute cholecystitis. Sonographic Ponce sign reported as negative. (4) Respiratory failure, acute Michael Merrill Oct 07, 2019 15:55
--- NOTE | 2019-10-07 16:00 | NUR ---
NURSE NOTES: NS bolus 500ml is being administered for SBP below 95 per PRN order.
--- NOTE | 2019-10-07 18:00 | NUR ---
NURSE NOTES: Pt is being infused NS 500ml bolus per PRN order for low SBP below 95.
--- NOTE | 2019-10-07 18:30 | NUR ---
NURSE NOTES: ABGs were drawn and results reported to Dr Lopez. Per order change vent settings to AC26, VT550 and repeat ABGs. Endorsed to RT.
--- NOTE | 2019-10-07 19:30 | NUR ---
HAND-OFF: Report given to Solange NAJERA. Endorsed plan of care.
--- NOTE | 2019-10-07 19:33 | NUR ---
NURSE NOTES: Received pt lethargic, respond to tactile stimulation. orally intubated on Ac mode blood gas was obtained and was relayed to Dr Lopez, with orders give, pls see orders., NSR on the monitor. Bp 97/36. afebrile. schafer to gravity with low urine output, pls see I and O. Dr kaplan was aware per REINALDO Barone. pt with bilateral soft wrist restraints on for safety to avoid self extubation. pt has 2-3+ edema both arms and wheeping with fluids, scrotal edema and stage 2 sacral decub. covered with optifoam.On p 200 mattress, Turned q 2hrs PRN with good skin care done. Off fdg at this time. (pt was unstable) per REINALDO Barone- Will continue to monitor.
[2019-10-07] MEDS: Dyna-Hex 2% Top Sol 2oz TOPIC SCH (20:16)
--- NOTE | 2019-10-07 22:00 | NUR ---
NURSE NOTES: Dr Lopez was aware with aBG result.
[2019-10-08] VITALS (47 sets, daily range): BP systolic 65–143; BP diastolic 30–62
--- NOTE | 2019-10-08 | NUR ---
NURSE NOTES: Pt had lg amt of soft to watery blackish greenish stool.Cleaned up pt.
--- NOTE | 2019-10-08 02:00 | NUR ---
NURSE NOTES: Suctioned tk bloody secretions. 02 sat >96%
--- NOTE | 2019-10-08 04:00 | NUR ---
NURSE NOTES: Complete bed bath with bed changed done.
--- NOTE | 2019-10-08 04:30 | Progress Note ---
DATE: 10/07/2019 CARDIOLOGY PROGRESS NOTE SUBJECTIVE: Condition remains critical. Prognosis guarded. Blood pressure tenuous. Fluid challenges given, efforts to avoid pressors ongoing, but may be required. PHYSICAL EXAMINATION: LUNGS: Bilateral breath sounds. Thin trach secretions. CARDIAC: Regular rhythm and rate. Normal S1, S2. ABDOMEN: Soft. EXTREMITIES: Trace dependent edema. LABORATORY DATA: White count 49, hemoglobin 8.5. Sodium 145, potassium 4.7, BUN 129, creatinine 1.8. ABG 7.26, 41, 57. IMPRESSION: 1. Sepsis. 2. Adrenocortical insufficiency on stress dose steroids. 3. Hypoxia. 4. Acute on chronic respiratory acidosis. 5. Paroxysmal atrial fibrillation. 6. Respiratory failure. 7. Persisting shock. PLAN: 1. Volume support. 2. Antimicrobials. 3. Consider steroid taper. 4. Help to avoid pressors. 5. Continue vent and not weanable at this time. 6. Maintain antiarrhythmic regimen. 7. At least for interim, if the patient recovers long-term amiodarone therapy, will have to be readdressed. Ar Gomez M.D. DR: JACKY JOB#: [id number] CC:
--- NOTE | 2019-10-08 06:00 | NUR ---
NURSE NOTES: Dr. Camden Leavitt was aware with pts condition.
[2019-10-08 06:32] LABS: HEMATOCRIT 22.2 % (42.0-52.0); HEMOGLOBIN 7.2 G/DL (14.2-18.0); MEAN CORPUSCULAR VOLUME 103 FL (80-99); PLATELET COUNT 15 K/UL (150-450); RED BLOOD COUNT 2.15 M/UL (4.70-6.10); RED CELL DISTRIBUTION WIDTH 15.7 % (11.6-14.8)
[2019-10-08 06:35] LABS: WHITE BLOOD COUNT 44.7 K/UL (4.8-10.8)
--- NOTE | 2019-10-08 06:58 | NUR ---
RESPIRATORY NOTE: Received pt on ordered vent settings. Pt airway is patent and secured. Suctioned pt prn. Vent alarms are on and audible. Vent is plugged into red outlet. Will monitor pt progress.
--- NOTE | 2019-10-08 07:14 | NUR ---
HAND-OFF: Report given to Lizabeth NAJERA.
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
[2019-10-08] MEDS ORDERED: Vancomycin 1gm/D5W 275ml IVPB ONE ×2 (10:00)
--- NOTE | 2019-10-08 10:00 | NUR ---
NURSE NOTES: Pt was placed on Levophed at 30mcg/min due to sustained hypotension 65/35. AM meds were administered. Oral care was done and pt cleaned/repositioned. Bilateral upper extremities are seeping/serous fluid. ABGs were drawn and results were reported to Dr Lopez. FIO2 on vent has been increased to 100%. Per Dr Lopez, repeat ABGs in the AM.
[2019-10-08] MEDS: Tigecycline 50 MG in NS 110 ML IVPB SCH ×2 (10:27→20:14)
[2019-10-08] MEDS: Amiodarone 200mg tab GT SCH ×2 (10:28→20:14)
[2019-10-08] MEDS: Thiamine 100mg tab ORAL SCH (10:28)
[2019-10-08] MEDS: Hydrocortisone 100mg Inj IV SCH (10:28)
[2019-10-08] MEDS: Polymyxin B Sulfate 250,000 UNITS in D5W 275 ML IV SCH ×2 (10:28→21:06)
--- NOTE | 2019-10-08 10:44 | Surgery Progress Note ---
Surgery Progress Note Subjective Additional Comments labs reviewed on vent exam unchanged TF Objective Last 24 Hour Vital Signs Date Time Temp Pulse Resp B/P (MAP) Pulse Ox O2 Delivery O2 Flow Rate FiO2 10/08/19 08:30 77 28 50 10/08/19 06:58 82 22 50 10/08/19 06:00 78 26 92/32 (52) 94 10/08/19 05:25 79 27 50 10/08/19 05:00 79 26 102/44 (63) 94 10/08/19 04:00 50 10/08/19 04:00 77 10/08/19 04:00 Mechanical Ventilator Mechanical Ventilator 10/08/19 04:00 97.8 79 27 102/38 (59) 95 10/08/19 03:21 77 28 50 10/08/19 03:00 80 25 116/44 (68) 95 10/08/19 02:00 75 27 95/33 (53) 95 10/08/19 01:20 82 22 50 10/08/19 01:00 80 27 103/62 (76) 93 10/08/19 00:00 75 10/08/19 00:00 Mechanical Ventilator Mechanical Ventilator 10/08/19 00:00 50 10/08/19 00:00 98.0 80 27 98/36 (56) 95 10/08/19 00:00 74 10/07/19 23:17 84 24 50 10/07/19 23:00 77 26 100/36 (57) 96 10/07/19 22:00 81 27 110/45 (66) 97 10/07/19 21:16 81 23 50 10/07/19 21:00 77 26 96/40 (58) 95 10/07/19 20:30 100/35 10/07/19 20:00 Mechanical Ventilator Mechanical Ventilator 10/07/19 20:00 79 10/07/19 20:00 78 26 92/36 (54) 94 10/07/19 20:00 98.4 80 24 102/32 (55) 100 10/07/19 19:13 79 27 50 10/07/19 19:00 80 24 102/32 (55) 100 10/07/19 18:00 78 22 108/36 (60) 93 10/07/19 17:29 77 19 50 10/07/19 17:00 80 23 92/52 (65) 97 10/07/19 16:00 55 10/07/19 16:00 85 10/07/19 16:00 Mechanical Ventilator Mechanical Ventilator 10/07/19 16:00 98.0 80 22 96/34 (54) 96 10/07/19 14:30 77 19 50 10/07/19 13:00 82 21 96/37 (56) 96 10/07/19 12:48 77 21 50 10/07/19 12:24 81 25 95/34 (54) 97 10/07/19 12:00 98.2 81 20 88/37 (54) 95 10/07/19 12:00 55 10/07/19 12:00 Mechanical Ventilator Mechanical Ventilator 10/07/19 12:00 82 10/07/19 11:22 84 21 50 10/07/19 11:00 83 21 93/32 (52) 98 I&O Intake and Output 10/07/19 10/08/19 19:00 07:00 Intake Total 1545 ml 1200 ml Output Total 305 ml 290 ml Balance 1240 ml 910 ml Free Water 60 ml 60 ml IV Total 1245 ml 900 ml Tube Feeding 240 ml 240 ml Output Urine Total 305 ml 290 ml # Bowel Movements 1 8 Dressing: other Wound: other Drains: other Cardiovascular: RSR Respiratory: decreased breath sounds Abdomen: soft, present bowel sounds Extremities: no cyanosis Laboratory Tests Test 10/07/19 18:09 10/07/19 20:45 10/08/19 05:15 10/08/19 08:20 Arterial Blood pH 7.176 (7.350-7.450) 7.260 (7.350-7.450) 7.279 (7.350-7.450) Arterial Blood Partial Pressure CO2 58.4 mmHg (35.0-45.0) *H 41.9 mmHg (35.0-45.0) 41.5 mmHg (35.0-45.0) Arterial Blood Partial Pressure O2 58.5 mmHg (75.0-100.0) L 57.4 mmHg (75.0-100.0) L 55.1 mmHg (75.0-100.0) L Arterial Blood HCO3 21.1 mmol/L (22.0-26.0) L 18.6 mmol/L (22.0-26.0) L 19.0 mmol/L (22.0-26.0) L Arterial Blood Oxygen Saturation 84.7 % (95-100) *L 86.5 % (95-100) *L 84.7 % (95-100) *L Arterial Blood Base Excess -7.2 (-2-2) L -7.8 (-2-2) L -7.2 (-2-2) L Giovanny Test Positive Positive Positive White Blood Count 44.7 K/UL (4.8-10.8) *H Red Blood Count 2.15 M/UL (4.70-6.10) L Hemoglobin 7.2 G/DL (14.2-18.0) L Hematocrit 22.2 % (42.0-52.0) L Mean Corpuscular Volume 103 FL (80-99) H Mean Corpuscular Hemoglobin 33.4 PG (27.0-31.0) H Mean Corpuscular Hemoglobin Concent 32.4 G/DL (32.0-36.0) Red Cell Distribution Width 15.7 % (11.6-14.8) H Platelet Count 15 K/UL (150-450) L Mean Platelet Volume 10.2 FL (6.5-10.1) H Neutrophils (%) (Auto) % (45.0-75.0) Lymphocytes (%) (Auto) % (20.0-45.0) Monocytes (%) (Auto) % (1.0-10.0) Eosinophils (%) (Auto) % (0.0-3.0) Basophils (%) (Auto) % (0.0-2.0) Differential Total Cells Counted 100 Neutrophils % (Manual) 93 % (45-75) H Lymphocytes % (Manual) 6 % (20-45) L Monocytes % (Manual) 1 % (1-10) Eosinophils % (Manual) 0 % (0-3) Basophils % (Manual) 0 % (0-2) Band Neutrophils 0 % (0-8) Platelet Estimate Decreased L Platelet Morphology Normal Hypochromasia 1+ Anisocytosis 1+ Macrocytosis 1+ Random Vancomycin Level 16.2 ug/mL Plan Problems: (1) Sepsis Assessment & Plan: Pt presented hyperpigmentation sacrum with loose dry/ peeling skin. Non -tender when palpated.Scrotum is erythematous. Pt is incontinent of B and B per staff. Condom cath placed on pt by primary nurse. Pt educated on wound prevention and encouraged to frequently turn ,or at least hourly to prevent skin breakdown. No other skin concerns noted. Tx.plan: Apply Moisture Barrier Paste to sacrum. Cover with Optifoam drsg. Change every 3 days and prn. Apply Cavilon Skin Barrier to both heels. Cover each heel with Optifoam drsg. Change every 7 days and prn. Reposition at least every 2hours or as tolerated. Off-load heels with pillow. DAILY ESTIMATED NEEDS: Needs based on Liver, Pulmonary, Critical care 55kg 22-30 kcals/kg 4093-5844 total kcals 1.25-2 g protein/kg 69-110 g total protein 25-30 mL/kg 7355-6597 total fluid mLs NUTRITION DIAGNOSIS: * Swallowing difficulty R/T dysphagia, respiratory status as evidenced by pt on [facility] soft finely chopped texture- was upgraded to Soft easy chew, was mostly on BIPAP, on non-rebreather during meals-> now orally intubated in ICU, non oral feeds. * Decreased sodium and fat needs r/t clinical status, ascites, as evidenced by s/p paracentesis, elev LFT's, elev T bili (INACTIVE) CURRENT TF:Glucerna 1.5 @20ml- held ENTERAL NUTRITION RECOMMENDATIONS: WHEN HD STABLE: Vital AF 1.2 @ 50ml/hr x 24 hrs to provide 1200ml, 1440kcal, 90g prot, 973ml free water * WHEN PT HEMODYNAMICALLY STABLE: -> initiate Vital AF 1.2 @ 10ml/hr x 6 hrs -> advance 10ml q 4-6 hrs as tolerated -> HOB over 30 degrees/ water flush per MD WITHOUT HD STABILTY: consider trophic feeding of Vital AF 1.2 @ 5-10ml/hr if able to raise bed >30 degrees ADDITIONAL RECOMMENDATIONS: 1) Obtain daily standing weight for accuracy or calibrated bedscale wt current bedscale wt 115 bs vs initial bedscale wt 158lbs 2) Monitor HD stability: on NE @ 30mcg-> now @8mcg-> now off LA trending up (4.0) 3) Monitor renal fxn and liver fxn: creat and T bili trend up 4) WC eval for sacral DTPI (2) Shock Assessment & Plan: Pulmonary arterial opacification is somewhat suboptimal, and small peripheral emboli could be missed. In addition, there is some image degradation due to motion artifact which also precludes exclusion of small peripheral emboli. No gross large vessel pulmonary emboli are demonstrated. The left main pulmonary artery is ectatic, measuring up to 2.5 cm. No isolated right ventricular dilatation. There is generalized four-chamber cardiomegaly. No evidence of thoracic aortic aneurysm or dissection. Normal caliber and branching anatomy of the right neck vessels is noted. There is extensive pulmonary parenchymal disease. There is extensive groundglass opacity involving most of the upper lobes. There is extensive interstitial septal thickening involving the lower lobes, as well as considerable atelectasis and confluent opacity. There is of bronchiectasis, subpleural blebs, and bilateral peripheral honeycombing are also present. There are bilateral small pleural effusions. The extent of the pulmonary parenchymal disease at the lung bases is greater than that which was visualized on abdomen CT scan of 08/23/2019 There is considerable edema of the mediastinal and epicardial fat, but no definite pericardial effusion is demonstrated. No mediastinal or hilar mass or adenopathy. Grossly unremarkable esophagus. The visualized thyroid is unremarkable. No axillary or chest wall mass or adenopathy. There is mild height loss of the T8 vertebral body. It is slightly sclerotic, demonstrates considerable superior and inferior endplate irregularity. There is degenerative spondylosis elsewhere in the thoracic spine. Included upper abdominal anatomy demonstrates atrophic liver with surface nodularity. There is a TIPS shunt in place which is probably patent. There is hypertrophy of the hepatic arteries. Gallstones are noted. There is considerable ascites fluid present. What are probably embolic coils are seen in the region of the splenic capsule. Impression: Somewhat suboptimal pulmonary arterial opacification as well as limitation of exam by motion artifact. Small peripheral emboli not completely excludable. No gross large vessel central pulmonary emboli demonstrated. Mildly dilated left main pulmonary artery, suggestive of but not diagnostic for pulmonary arterial hypertension Cardiomegaly Evidence of anasarca, with diffuse body wall and mediastinal edema, small bilateral pleural effusions, ascites Extensive pulmonary parenchymal disease, as described, with groundglass opacity, interstitial septal thickening, bronchiectasis, subpleural blebs, and peripheral honeycombing. Given the finding of cardiomegaly and anasarca, findings most likely on the basis of pulmonary edema. Pneumonia is also a possibility. In addition, there is probably underlying component of chronic fibrotic change. T8 vertebral body loss of height. This may reflect age-indeterminate compression fracture deformity versus degenerative remodeling. Consider MRI for better characterization if clinically relevant Evidence of hepatic cirrhosis. Evidence of portal hypertension, with a TIPS shunt in place, and ascites. This is been previously described Cholelithiasis Perisplenic embolic coils. Degenerative spondylosis (3) Cirrhosis Assessment & Plan: There is an orogastric tube in place, tip projected at the level of the fundus body junction, proximal port well distal to the expected level of the gastric esophageal junction. There is a TIPS shunt present. Bowel gas pattern is unremarkable. Vascular embolic coils are seen in the left upper quadrant. There is mild lumbar scoliotic deformity and considerable degenerative lumbar spondylosis * Significant interval reduction of ascites status post paracentesis. * Cirrhosis with indwelling patent TIPS shunt. Elevated velocities in the distal aspect of the TIPS shunt > 200 cm/s suggesting a degree of possible in-stent stenosis, especially given recurrent ascites. Correlation with prior ultrasound is essential to assess for interval change in velocities. Patient may benefit from interventional tip study with portal pressure measurements and possible TIPS angioplasty, especially if there is a significant elevation in velocities in the shunt upon comparison with baseline study. * Cholelithiasis. No radiographic evidence to suggest acute cholecystitis. Sonographic Ponce sign reported as negative. (4) Respiratory failure, acute Michael Merrill Oct 08, 2019 10:44
[2019-10-08] MEDS: D5NS 1,000 ML IV SCH ×2 (10:55→12:00)
--- NOTE | 2019-10-08 11:03 | Infectious Diseases Prog Note ---
"Assessment/Plan Assessment/Plan antibiotics : vancomycin iv, tygacil, polymyxin A 1. MRSA | klebsiella pneumonia 2. respiratory failure 3. klebsiella UTI 4. cirrhosis 5. ascites s/p paracentesis no SBP 6. thrombocytopenia improving 7. leucocytosis likely secondary to steroids improving 8. renal failure improving 9. MRSA sepsis P 1. continue iv vancomycin, tygacil, polymyxin 2. will follow up cultures Subjective ROS Limited/Unobtainable: Yes Allergies: Coded Allergies: PENICILLINS (Verified Allergy, Intermediate, Rash, 09/01/19) Patient stated at this time Objective Vital Signs Last 24 Hour Vital Signs Date Time Temp Pulse Resp B/P (MAP) Pulse Ox O2 Delivery O2 Flow Rate FiO2 10/08/19 08:30 77 28 50 10/08/19 06:58 82 22 50 10/08/19 06:00 78 26 92/32 (52) 94 10/08/19 05:25 79 27 50 10/08/19 05:00 79 26 102/44 (63) 94 10/08/19 04:00 50 10/08/19 04:00 77 10/08/19 04:00 Mechanical Ventilator Mechanical Ventilator 10/08/19 04:00 97.8 79 27 102/38 (59) 95 10/08/19 03:21 77 28 50 10/08/19 03:00 80 25 116/44 (68) 95 10/08/19 02:00 75 27 95/33 (53) 95 10/08/19 01:20 82 22 50 10/08/19 01:00 80 27 103/62 (76) 93 10/08/19 00:00 75 10/08/19 00:00 Mechanical Ventilator Mechanical Ventilator 10/08/19 00:00 50 10/08/19 00:00 98.0 80 27 98/36 (56) 95 10/08/19 00:00 74 10/07/19 23:17 84 24 50 10/07/19 23:00 77 26 100/36 (57) 96 10/07/19 22:00 81 27 110/45 (66) 97 10/07/19 21:16 81 23 50 10/07/19 21:00 77 26 96/40 (58) 95 10/07/19 20:30 100/35 10/07/19 20:00 Mechanical Ventilator Mechanical Ventilator 1/23/20 20:00 79 10/07/19 20:00 78 26 92/36 (54) 94 10/07/19 20:00 98.4 80 24 102/32 (55) 100 10/07/19 19:13 79 27 50 10/07/19 19:00 80 24 102/32 (55) 100 10/07/19 18:00 78 22 108/36 (60) 93 10/07/19 17:29 77 19 50 10/07/19 17:00 80 23 92/52 (65) 97 10/07/19 16:00 55 10/07/19 16:00 85 10/07/19 16:00 Mechanical Ventilator Mechanical Ventilator 10/07/19 16:00 98.0 80 22 96/34 (54) 96 10/07/19 14:30 77 19 50 10/07/19 13:00 82 21 96/37 (56) 96 10/07/19 12:48 77 21 50 10/07/19 12:24 81 25 95/34 (54) 97 10/07/19 12:00 98.2 81 20 88/37 (54) 95 10/07/19 12:00 55 10/07/19 12:00 Mechanical Ventilator Mechanical Ventilator 10/07/19 12:00 82 10/07/19 11:22 84 21 50 10/07/19 11:00 83 21 93/32 (52) 98 Height (Feet): 5 Height (Inches): 8.00 Weight (Pounds): 130 HEENT: other - intubated Respiratory/Chest: lungs clear Cardiovascular: normal rate, regular rhythm, no gallop/murmur Abdomen: soft, non tender Extremities: other - arm edema, right arm PICC Microbiology Date/Time Source Procedure Growth Status 10/05/19 12:45 Sputum Gram Stain - Final Complete 10/05/19 12:45 Sputum Culture - Final K.pneumoniae Carbapenem Resist Complete Laboratory Tests Test 10/07/19 18:09 10/07/19 20:45 10/08/19 05:15 10/08/19 08:20 Arterial Blood pH 7.176 (7.350-7.450) 7.260 (7.350-7.450) 7.279 (7.350-7.450) Arterial Blood Partial Pressure CO2 58.4 mmHg (35.0-45.0) *H 41.9 mmHg (35.0-45.0) 41.5 mmHg (35.0-45.0) Arterial Blood Partial Pressure O2 58.5 mmHg (75.0-100.0) L 57.4 mmHg (75.0-100.0) L 55.1 mmHg (75.0-100.0) L Arterial Blood HCO3 21.1 mmol/L (22.0-26.0) L 18.6 mmol/L (22.0-26.0) L 19.0 mmol/L (22.0-26.0) L Arterial Blood Oxygen Saturation 84.7 % (95-100) *L 86.5 % (95-100) *L 84.7 % (95-100) *L Arterial Blood Base Excess -7.2 (-2-2) L -7.8 (-2-2) L -7.2 (-2-2) L Giovanny Test Positive Positive Positive White Blood Count 44.7 K/UL (4.8-10.8) *H Red Blood Count 2.15 M/UL (4.70-6.10) L Hemoglobin 7.2 G/DL (14.2-18.0) L Hematocrit 22.2 % (42.0-52.0) L Mean Corpuscular Volume 103 FL (80-99) H Mean Corpuscular Hemoglobin 33.4 PG (27.0-31.0) H Mean Corpuscular Hemoglobin Concent 32.4 G/DL (32.0-36.0) Red Cell Distribution Width 15.7 % (11.6-14.8) H Platelet Count 15 K/UL (150-450) L Mean Platelet Volume 10.2 FL (6.5-10.1) H Neutrophils (%) (Auto) % (45.0-75.0) Lymphocytes (%) (Auto) % (20.0-45.0) Monocytes (%) (Auto) % (1.0-10.0) Eosinophils (%) (Auto) % (0.0-3.0) Basophils (%) (Auto) % (0.0-2.0) Differential Total Cells Counted 100 Neutrophils % (Manual) 93 % (45-75) H Lymphocytes % (Manual) 6 % (20-45) L Monocytes % (Manual) 1 % (1-10) Eosinophils % (Manual) 0 % (0-3) Basophils % (Manual) 0 % (0-2) Band Neutrophils 0 % (0-8) Platelet Estimate Decreased L Platelet Morphology Normal Hypochromasia 1+ Anisocytosis 1+ Macrocytosis 1+ Random Vancomycin Level 16.2 ug/mL Current Medications Medications (Trade) Dose Ordered Sig/Akash Route PRN Reason Start Time Stop Time Status Last Admin Dose Admin Acetaminophen (Tylenol) 650 mg Q6H PRN NG FEVER 09/30/19 10:30 10/30/19 10:29 10/06/19 10:47 Amiodarone HCl (Cordarone) 200 mg EVERY 12 HOURS GT 10/05/19 09:00 11/04/19 08:59 10/08/19 10:28 Chlorhexidine Gluconate (Tammy-Hex 2%) 1 applic DAILY@2000 TOPIC 10/04/19 20:00 11/03/19 19:59 10/07/19 20:16 Dextrose/Sodium Chloride 1,000 ml @ 75 mls/hr [id number] IV 10/02/19 08:15 11/01/19 08:14 10/07/19 22:15 Diphenhydramine HCl (Benadryl) 25 mg Q6H PRN ORAL Itching 09/28/19 13:25 10/28/19 13:24 09/29/19 10:09 Hydrocortisone (Solu-CORTEF) 30 mg DAILY IV 10/07/19 09:00 11/06/19 08:59 10/08/19 10:28 Lidocaine HCl (Xylocaine Viscous) 15 ml Q4H PRN ORAL For Pain 10/06/19 08:00 11/05/19 07:59 Metoclopramide HCl (Reglan) 5 mg Q6H PRN ORAL Nausea & Vomiting 10/06/19 07:00 11/05/19 06:59 10/06/19 10:47 Multivitamins (Multivitamins) 1 tab DAILY ORAL 09/29/19 09:00 10/22/19 08:59 10/08/19 10:28 Nicotine (Nicoderm) 1 patch Q24H TDERMAL 09/29/19 01:00 10/29/19 00:59 10/08/19 00:41 Norepinephrine Bitartrate 4 mg/ Dextrose 250 ml @ 0 mls/hr Q24H IV 10/07/19 20:30 11/06/19 20:29 Pantoprazole (Protonix) 40 mg ACBREAKFAST ORAL 09/29/19 06:30 10/22/19 08:59 10/08/19 06:38 Polymyxin B Sulfate 370540 units/Dextrose 275 ml @ 275 mls/hr EVERY 12 HOURS IV 10/07/19 10:00 10/14/19 09:59 10/08/19 10:28 Sodium Chloride 500 ml @ 999 mls/hr Q31M PRN IV SBP <95 10/03/19 21:15 11/02/19 21:14 10/03/19 23:20 Thiamine HCl (Vitamin B1) 100 mg DAILY ORAL 09/29/19 09:00 10/22/19 08:59 10/08/19 10:28 Tigecycline 50 mg/ Sodium Chloride 110 ml @ 220 mls/hr EVERY 12 HOURS IVPB 10/02/19 21:00 10/09/19 20:59 10/08/19 10:27 Vancomycin HCl (Vanco rx to dose) 1 ea DAILY PRN MISC Per rx protocol 10/02/19 10:30 11/01/19 10:29 Vancomycin HCl 1 gm/Dextrose 275 ml @ 183.708 mls/hr ONCE ONCE IVPB 10/08/19 10:00 10/08/19 11:29 10/08/19 10:27 Morena Erazo MD Oct 08, 2019 11:03"
--- NOTE | 2019-10-08 11:47 | NUR ---
RD ASSESSMENT & RECOMMENDATIONS SEE CARE ACTIVITY FOR COMPLETE ASSESSMENT DAILY ESTIMATED NEEDS: Needs based on Liver, Pulmonary, Critical care 55kg 22-30 kcals/kg 0619-1028 total kcals 1.25-2 g protein/kg 69-110 g total protein 25-30 mL/kg 1241-6824 total fluid mLs NUTRITION DIAGNOSIS: * Increased kcal/prot needs R/T wound healing as evidenced by pt w/ partial thickness pressure injury within area of hyperpigmentation on sacrum, small furuncle at R elbow, and non-blanching erythema @ BL heels. * Swallowing difficulty R/T dysphagia, respiratory status as evidenced by pt on [facility] soft finely chopped texture- was upgraded to Soft easy chew, was mostly on BIPAP, on non-rebreather during meals-> now orally intubated in ICU, non oral feeds. * Decreased sodium and fat needs r/t clinical status, ascites, as evidenced by s/p paracentesis, elev LFT's, elev T bili (INACTIVE) CURRENT TF:Glucerna 1.5 @20ml ENTERAL NUTRITION RECOMMENDATIONS: Vital AF 1.2 @ 50ml/hr x 24 hrs to provide 1200ml, 1440kcal, 90g prot, 973ml free water * Rec TF change to Vital AF 1.2 for critical care and elemental formula given diarrhea and h/o residuals. -> initiate Vital AF 1.2 @ 10ml/hr x 6 hrs -> advance 10ml q 4-6 hrs as tolerated -> HOB over 30 degrees/ water flush per MD If pt is to remain on Glucerna 1.5, rec to increase goal rate to 40ml/hr x 24 hrs to provide 960ml, 1440kcal, 79g prot, 729ml free water -> advance slowly 5ml q 4-6 hrs as tolerated given h/o +residuals on Glucerna 1.5 : ADDITIONAL RECOMMENDATIONS: 1) Obtain daily standing weight for accuracy or calibrated bedscale wt current bedscale wt 125 bs vs initial bedscale wt 158lbs 2) Monitor HD stability: on NE @ 30mcg-> now @8mcg-> now off 3) Monitor renal fxn: BUN trend up (129) despite creat lower (1.8) 4) Wound healing: add Vit C 250mg QD, Continue MVI Valerio 1pkt BID w/ continued good TF tolerance .
--- NOTE | 2019-10-08 12:00 | NUR ---
NURSE NOTES: Levophed drip has been titrated down to 2mcg/min to maintained SBP above 85. O2Sat is now at 100% with FIO2 being titrated down to 50%. Oral care was done and pt suctioned. Pt was repositioned. Rectal tube is draining liquid tarry stool. Dr Leavitt is aware of pt's current status, and code status currently is maintained at Full code per MD. Per Dr Leavitt's order pt is to be transfused 1unit of PRBC, awaiting for blood bank supply.
--- NOTE | 2019-10-08 13:05 | NUR ---
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 98.3 HR 76 RR 28 B/P 143/57 AC 26 TV 580 FIO2 50% PEEP 5 PH 7.29 PCO2 41.5 PO2 55.1 HCO3 19.0 O2 SAT 84.7 WBC 44.7 H/H 7.2/22.2 BUN 129 CR 1.8 IS: LEVOPHED GTT POLYMYXIN IV SOLU CORTEF IVF NS@ 100ML/HR TYGACIL IV ICU STATUS
--- NOTE | 2019-10-08 14:28 | NUR ---
*-* INSURANCE *-* ALL AVAILABLE CLINICALS AND REVIEWS HAVE BEEN FAXED TO: [facility]: DEEPAK P- [phone] F- [phone]...........REVIEW/CLINICAL
--- NOTE | 2019-10-08 14:30 | NUR ---
NURSE NOTES: public address technician is at bedside, blood specimen has been drawn for type&cross. Levophed is now turned off. VS remain stable.
--- NOTE | 2019-10-08 16:30 | NUR ---
NURSE NOTES: 1unit of PRBC is being transfused per MD order. VS remain stable. Pt was cleaned and repositioned.
--- NOTE | 2019-10-08 17:13 | General Progress Note ---
Assessment/Plan Problem List: (1) AMS (altered mental status) ICD Codes: R41.82 - Altered mental status, unspecified SNOMED: 263116179 (2) Sepsis ICD Codes: A41.9 - Sepsis, unspecified organism SNOMED: 53936884 (3) Shock ICD Codes: R57.9 - Shock, unspecified SNOMED: 88541675 (4) Cirrhosis ICD Codes: K74.60 - Unspecified cirrhosis of liver SNOMED: 58961236 (5) Hypoxia ICD Codes: R09.02 - Hypoxemia SNOMED: 998258803 (6) Respiratory failure, acute ICD Codes: J96.00 - Acute respiratory failure, unspecified whether with hypoxia or hypercapnia SNOMED: 07162548 Qualifiers: Qualified Codes: J96.01 - Acute respiratory failure with hypoxia Status: stable Assessment/Plan: vent support pressors as needed ivf stress dose steroids- weaning iv abx per id transfuse prbc and plts tube feeds as tolerated critical and guarded poor prognosis Subjective ROS Limited/Unobtainable: No Constitutional: Reports: malaise, weakness HEENT: Reports: no symptoms Cardiovascular: Reports: no symptoms Respiratory: Reports: cough, shortness of breath Gastrointestinal/Abdominal: Reports: tarry stools Genitourinary: Reports: no symptoms Neurologic/Psychiatric: Reports: pre-existing deficit Endocrine: Reports: no symptoms Hematologic/Lymphatic: Reports: anemia Allergies: Coded Allergies: PENICILLINS (Verified Allergy, Intermediate, Rash, 09/01/19) Patient stated at this time All Systems: reviewed and negative except above Subjective doing poorly. hypotensive. better after fluid challenge. remains intubated. off drips. multiple iv abx. tolerating feeds at low rate. +edema decrease h/h. decreased plts Objective Last 24 Hour Vital Signs Date Time Temp Pulse Resp B/P (MAP) Pulse Ox O2 Delivery O2 Flow Rate FiO2 10/08/19 15:00 131/54 10/08/19 15:00 77 26 135/52 (79) 100 10/08/19 14:36 79 24 50 10/08/19 14:30 78 25 142/55 (84) 100 10/08/19 14:00 76 27 130/54 (79) 100 10/08/19 14:00 144/58 10/08/19 13:30 76 26 127/51 (76) 100 10/08/19 13:00 123/50 10/08/19 13:00 77 26 123/49 (73) 100 10/08/19 12:33 81 26 50 10/08/19 12:30 79 27 135/52 (79) 100 10/08/19 12:00 75 10/08/19 12:00 Mechanical Ventilator Mechanical Ventilator 10/08/19 12:00 50 10/08/19 12:00 142/59 10/08/19 12:00 98.3 76 27 143/57 (85) 100 10/08/19 11:00 80 26 136/55 (82) 100 10/08/19 11:00 141/56 10/08/19 10:55 78 28 50 10/08/19 10:30 81 28 137/58 (84) 100 10/08/19 10:00 78 26 125/53 (77) 100 10/08/19 10:00 133/53 10/08/19 09:30 82 29 111/55 (73) 100 10/08/19 09:00 82 27 86/31 (49) 100 10/08/19 09:00 86/31 10/08/19 08:30 83 27 128/43 (71) 100 10/08/19 08:30 77 28 50 10/08/19 08:15 79 28 65/39 (48) 92 10/08/19 08:00 98.0 85 27 101/47 (65) 91 10/08/19 08:00 65/35 10/08/19 08:00 Mechanical Ventilator Mechanical Ventilator 10/08/19 08:00 50 10/08/19 08:00 79 10/08/19 07:45 78 28 95/42 (59) 92 10/08/19 07:30 79 29 93/30 (51) 93 10/08/19 07:15 78 29 93/32 (52) 93 10/08/19 07:00 80 27 102/34 (56) 93 10/08/19 06:58 82 22 50 10/08/19 06:00 78 26 92/32 (52) 94 10/08/19 05:25 79 27 50 10/08/19 05:00 79 26 102/44 (63) 94 10/08/19 04:00 50 10/08/19 04:00 77 10/08/19 04:00 Mechanical Ventilator Mechanical Ventilator 10/08/19 04:00 97.8 79 27 102/38 (59) 95 10/08/19 03:21 77 28 50 10/08/19 03:00 80 25 116/44 (68) 95 10/08/19 02:00 75 27 95/33 (53) 95 10/08/19 01:20 82 22 50 10/08/19 01:00 80 27 103/62 (76) 93 10/08/19 00:00 75 10/08/19 00:00 Mechanical Ventilator Mechanical Ventilator 10/08/19 00:00 50 10/08/19 00:00 98.0 80 27 98/36 (56) 95 10/08/19 00:00 74 10/07/19 23:17 84 24 50 10/07/19 23:00 77 26 100/36 (57) 96 10/07/19 22:00 81 27 110/45 (66) 97 10/07/19 21:16 81 23 50 10/07/19 21:00 77 26 96/40 (58) 95 10/07/19 20:30 100/35 10/07/19 20:00 Mechanical Ventilator Mechanical Ventilator 10/07/19 20:00 79 10/07/19 20:00 78 26 92/36 (54) 94 10/07/19 20:00 98.4 80 24 102/32 (55) 100 10/07/19 19:13 79 27 50 10/07/19 19:00 80 24 102/32 (55) 100 10/07/19 18:00 78 22 108/36 (60) 93 10/07/19 17:29 77 19 50 Intake and Output 10/07/19 10/08/19 19:00 07:00 Intake Total 1545 ml 1200 ml Output Total 305 ml 290 ml Balance 1240 ml 910 ml Free Water 60 ml 60 ml IV Total 1245 ml 900 ml Tube Feeding 240 ml 240 ml Output Urine Total 305 ml 290 ml # Bowel Movements 1 8 Laboratory Tests 10/07/19 18:09: Arterial Blood pH 7.176*L, Arterial Blood Partial Pressure CO2 58.4*H, Arterial Blood Partial Pressure O2 58.5L, Arterial Blood HCO3 21.1L, Arterial Blood Oxygen Saturation 84.7*L, Arterial Blood Base Excess -7.2L, Giovanny Test Positive 10/07/19 20:45: Arterial Blood pH 7.260L, Arterial Blood Partial Pressure CO2 41.9, Arterial Blood Partial Pressure O2 57.4L, Arterial Blood HCO3 18.6L, Arterial Blood Oxygen Saturation 86.5*L, Arterial Blood Base Excess -7.8L, Giovanny Test Positive 10/08/19 05:15: White Blood Count 44.7*H, Red Blood Count 2.15L, Hemoglobin 7.2L, Hematocrit 22.2L, Mean Corpuscular Volume 103H, Mean Corpuscular Hemoglobin 33.4H, Mean Corpuscular Hemoglobin Concent 32.4, Red Cell Distribution Width 15.7H, Platelet Count 15L, Mean Platelet Volume 10.2H, Neutrophils (%) (Auto) , Lymphocytes (%) (Auto) , Monocytes (%) (Auto) , Eosinophils (%) (Auto) , Basophils (%) (Auto) , Differential Total Cells Counted 100, Neutrophils % ( Manual) 93H, Lymphocytes % (Manual) 6L, Monocytes % (Manual) 1, Eosinophils % ( Manual) 0, Basophils % (Manual) 0, Band Neutrophils 0, Platelet Estimate DecreasedL, Platelet Morphology Normal, Hypochromasia 1+, Anisocytosis 1+, Macrocytosis 1+, Random Vancomycin Level 16.2 10/08/19 08:20: Arterial Blood pH 7.279L, Arterial Blood Partial Pressure CO2 41.5, Arterial Blood Partial Pressure O2 55.1L, Arterial Blood HCO3 19.0L, Arterial Blood Oxygen Saturation 84.7*L, Arterial Blood Base Excess -7.2L, Giovanny Test Positive Height (Feet): 5 Height (Inches): 8.00 Weight (Pounds): 130 Objective General Appearance: WD/WN, lethargic. orally intubated Neck: supple Cardiovascular: regular rhythm Respiratory/Chest: lungs td rhonchi Abdomen: normal bowel sounds, non tender. small reducible periumbilical hernia Edema: no edema noted Arm (L), no edema noted Arm (R), no edema noted Leg (L), no edema noted Leg (R), no edema noted Pedal (L), no edema noted Pedal (R), no edema noted Generalized Henry Leavitt MD Oct 08, 2019 17:12
--- NOTE | 2019-10-08 17:50 | Pulmonology Progress Note ---
Assessment/Plan Assessment/Plan Impression - MRSA Pneumonia - Persistent leucocytosis - Hypoxic respiratory Failure /ARDS likely - CHFpEF - Atrial Fibrillation - Cirrhosis, h/o ETOH Use, ascites s/p Paracentesis - Homeless - Enterobacter UTI s/p rx - Thrombocytopenia - Anasarca - tachycardia - overwhelming sepsis +++ positive cultures PLAN doing poorly hyperventilate on hydrocortisone and taper as able defer bronchoscopy with worsening acidemia currently unstable and extremely critical remains ill taper oxygen and monitor CXR and ABG routine too ill for bronchoscopy in ICU prognosis remains poor still too ill for intervention impression, plan, and exam edited and reviewed in detail care discussed with RN Subjective ROS Limited/Unobtainable: Yes Allergies: Coded Allergies: PENICILLINS (Verified Allergy, Intermediate, Rash, 09/01/19) Patient stated at this time Subjective care noted on vent on full vent support/ cxr noted and ABG with significant acidemia O2 at 100% on AC 18 Objective Last 24 Hour Vital Signs Date Time Temp Pulse Resp B/P (MAP) Pulse Ox O2 Delivery O2 Flow Rate FiO2 10/08/19 16:56 78 28 50 10/08/19 15:00 131/54 10/08/19 15:00 77 26 135/52 (79) 100 10/08/19 14:36 79 24 50 10/08/19 14:30 78 25 142/55 (84) 100 10/08/19 14:00 76 27 130/54 (79) 100 10/08/19 14:00 144/58 10/08/19 13:30 76 26 127/51 (76) 100 10/08/19 13:00 123/50 10/08/19 13:00 77 26 123/49 (73) 100 10/08/19 12:33 81 26 50 10/08/19 12:30 79 27 135/52 (79) 100 10/08/19 12:00 75 10/08/19 12:00 Mechanical Ventilator Mechanical Ventilator 10/08/19 12:00 50 10/08/19 12:00 142/59 10/08/19 12:00 98.3 76 27 143/57 (85) 100 10/08/19 11:00 80 26 136/55 (82) 100 10/08/19 11:00 141/56 10/08/19 10:55 78 28 50 10/08/19 10:30 81 28 137/58 (84) 100 10/08/19 10:00 78 26 125/53 (77) 100 10/08/19 10:00 133/53 10/08/19 09:30 82 29 111/55 (73) 100 10/08/19 09:00 82 27 86/31 (49) 100 10/08/19 09:00 86/31 10/08/19 08:30 83 27 128/43 (71) 100 10/08/19 08:30 77 28 50 10/08/19 08:15 79 28 65/39 (48) 92 10/08/19 08:00 98.0 85 27 101/47 (65) 91 10/08/19 08:00 65/35 10/08/19 08:00 Mechanical Ventilator Mechanical Ventilator 10/08/19 08:00 50 10/08/19 08:00 79 10/08/19 07:45 78 28 95/42 (59) 92 10/08/19 07:30 79 29 93/30 (51) 93 10/08/19 07:15 78 29 93/32 (52) 93 10/08/19 07:00 80 27 102/34 (56) 93 10/08/19 06:58 82 22 50 10/08/19 06:00 78 26 92/32 (52) 94 10/08/19 05:25 79 27 50 10/08/19 05:00 79 26 102/44 (63) 94 10/08/19 04:00 50 10/08/19 04:00 77 10/08/19 04:00 Mechanical Ventilator Mechanical Ventilator 10/08/19 04:00 97.8 79 27 102/38 (59) 95 10/08/19 03:21 77 28 50 10/08/19 03:00 80 25 116/44 (68) 95 10/08/19 02:00 75 27 95/33 (53) 95 10/08/19 01:20 82 22 50 10/08/19 01:00 80 27 103/62 (76) 93 10/08/19 00:00 75 10/08/19 00:00 Mechanical Ventilator Mechanical Ventilator 10/08/19 00:00 50 10/08/19 00:00 98.0 80 27 98/36 (56) 95 10/08/19 00:00 74 10/07/19 23:17 84 24 50 10/07/19 23:00 77 26 100/36 (57) 96 10/07/19 22:00 81 27 110/45 (66) 97 10/07/19 21:16 81 23 50 10/07/19 21:00 77 26 96/40 (58) 95 10/07/19 20:30 100/35 10/07/19 20:00 Mechanical Ventilator Mechanical Ventilator 10/07/19 20:00 79 10/07/19 20:00 78 26 92/36 (54) 94 10/07/19 20:00 98.4 80 24 102/32 (55) 100 10/07/19 19:13 79 27 50 10/07/19 19:00 80 24 102/32 (55) 100 10/07/19 18:00 78 22 108/36 (60) 93 Intake and Output 10/07/19 10/08/19 19:00 07:00 Intake Total 1545 ml 1200 ml Output Total 305 ml 290 ml Balance 1240 ml 910 ml Free Water 60 ml 60 ml IV Total 1245 ml 900 ml Tube Feeding 240 ml 240 ml Output Urine Total 305 ml 290 ml # Bowel Movements 1 8 Objective WDWN NAD coarse breath sounds bilaterally without rhonchi or wheeze [id number] without MRG NABS nontender no HSM some distention no CC some edema nonfocal sedated Laboratory Tests 10/07/19 18:09: Arterial Blood pH 7.176*L, Arterial Blood Partial Pressure CO2 58.4*H, Arterial Blood Partial Pressure O2 58.5L, Arterial Blood HCO3 21.1L, Arterial Blood Oxygen Saturation 84.7*L, Arterial Blood Base Excess -7.2L, Giovanny Test Positive 10/07/19 20:45: Arterial Blood pH 7.260L, Arterial Blood Partial Pressure CO2 41.9, Arterial Blood Partial Pressure O2 57.4L, Arterial Blood HCO3 18.6L, Arterial Blood Oxygen Saturation 86.5*L, Arterial Blood Base Excess -7.8L, Giovanny Test Positive 10/08/19 05:15: White Blood Count 44.7*H, Red Blood Count 2.15L, Hemoglobin 7.2L, Hematocrit 22.2L, Mean Corpuscular Volume 103H, Mean Corpuscular Hemoglobin 33.4H, Mean Corpuscular Hemoglobin Concent 32.4, Red Cell Distribution Width 15.7H, Platelet Count 15L, Mean Platelet Volume 10.2H, Neutrophils (%) (Auto) , Lymphocytes (%) (Auto) , Monocytes (%) (Auto) , Eosinophils (%) (Auto) , Basophils (%) (Auto) , Differential Total Cells Counted 100, Neutrophils % ( Manual) 93H, Lymphocytes % (Manual) 6L, Monocytes % (Manual) 1, Eosinophils % ( Manual) 0, Basophils % (Manual) 0, Band Neutrophils 0, Platelet Estimate DecreasedL, Platelet Morphology Normal, Hypochromasia 1+, Anisocytosis 1+, Macrocytosis 1+, Random Vancomycin Level 16.2 10/08/19 08:20: Arterial Blood pH 7.279L, Arterial Blood Partial Pressure CO2 41.5, Arterial Blood Partial Pressure O2 55.1L, Arterial Blood HCO3 19.0L, Arterial Blood Oxygen Saturation 84.7*L, Arterial Blood Base Excess -7.2L, Giovanny Test Positive Current Medications Medications (Trade) Dose Ordered Sig/Akash Route PRN Reason Start Time Stop Time Status Last Admin Dose Admin Acetaminophen (Tylenol) 650 mg Q6H PRN NG FEVER 09/30/19 10:30 10/30/19 10:29 10/06/19 10:47 Amiodarone HCl (Cordarone) 200 mg EVERY 12 HOURS GT 10/05/19 09:00 11/04/19 08:59 10/08/19 10:28 Chlorhexidine Gluconate (Tammy-Hex 2%) 1 applic DAILY@2000 TOPIC 10/04/19 20:00 11/03/19 19:59 10/07/19 20:16 Dextrose/Sodium Chloride 1,000 ml @ 75 mls/hr [id number] IV 10/02/19 08:15 11/01/19 08:14 10/08/19 12:00 Diphenhydramine HCl (Benadryl) 25 mg Q6H PRN ORAL Itching 09/28/19 13:25 10/28/19 13:24 09/29/19 10:09 Hydrocortisone (Solu-CORTEF) 30 mg DAILY IV 10/07/19 09:00 11/06/19 08:59 10/08/19 10:28 Lidocaine HCl (Xylocaine Viscous) 15 ml Q4H PRN ORAL For Pain 10/06/19 08:00 11/05/19 07:59 Metoclopramide HCl (Reglan) 5 mg Q6H PRN ORAL Nausea & Vomiting 10/06/19 07:00 11/05/19 06:59 10/06/19 10:47 Multivitamins (Multivitamins) 1 tab DAILY ORAL 09/29/19 09:00 10/22/19 08:59 10/08/19 10:28 Nicotine (Nicoderm) 1 patch Q24H TDERMAL 09/29/19 01:00 10/29/19 00:59 10/08/19 00:41 Norepinephrine Bitartrate 4 mg/ Dextrose 250 ml @ 0 mls/hr Q24H IV 10/07/19 20:30 11/06/19 20:29 10/08/19 08:00 Pantoprazole (Protonix) 40 mg ACBREAKFAST ORAL 09/29/19 06:30 10/22/19 08:59 10/08/19 06:38 Polymyxin B Sulfate 208956 units/Dextrose 275 ml @ 275 mls/hr EVERY 12 HOURS IV 10/07/19 10:00 10/14/19 09:59 10/08/19 10:28 Sodium Chloride 500 ml @ 999 mls/hr Q31M PRN IV SBP <95 10/03/19 21:15 11/02/19 21:14 10/03/19 23:20 Thiamine HCl (Vitamin B1) 100 mg DAILY ORAL 09/29/19 09:00 10/22/19 08:59 10/08/19 10:28 Tigecycline 50 mg/ Sodium Chloride 110 ml @ 220 mls/hr EVERY 12 HOURS IVPB 10/02/19 21:00 10/09/19 20:59 10/08/19 10:27 Vancomycin HCl (Vanco rx to dose) 1 ea DAILY PRN MISC Per rx protocol 10/02/19 10:30 11/01/19 10:29 Simon Lopez MD Oct 08, 2019 17:50
--- NOTE | 2019-10-08 18:30 | NUR ---
NURSE NOTES: Blood transfusion is now complete. Pt tolerated well with no adverse reactions noted. VS remain stable. Order noted for plateletpheresis. Per blood bank, supply will be available in 4-5hours. CBC to be repeated at 2100 today. Will endorse to next shift.
--- NOTE | 2019-10-08 19:35 | NUR ---
HAND-OFF: Report given to Shirley NAJERA. Endorsed plan of care.
--- NOTE | 2019-10-08 19:36 | NUR ---
NURSE NOTES: Endorsement received from REINALDO Barone. Patietn lethargic. Orally intubated with 7.5, 24 lipline. AC 26, 550, PEEP 5, 70%. OGT in place. Receving Glucerna 1.5 20ml/hr. No residual. Right upper arm PICC, on D5NS 75 ml/hr. Rectal tube in place. Tellez catheter present. SCDs in place. On P200 mattress. Head of bed kept elevated. Call light within reach. Bed locked and in low position. Bed alarm on. Will continue to monitor
--- NOTE | 2019-10-08 19:42 | NUR ---
NURSE NOTES: Called Dr. Leavitt, left a message to clarify his order for CBC at 2100H. Awaiting for return call.
[2019-10-08] MEDS: Dyna-Hex 2% Top Sol 2oz TOPIC SCH (20:14)
--- NOTE | 2019-10-08 20:44 | NUR ---
NURSE NOTES: Dr Leavitt returned the call. Informed him that PRBC has already been transfused but the unit of platelet is still not available. As per the lab, will be available around 2300H tonight. As per Dr. Leavitt to do CBC after platelet has been transfused and cancel the 2100H CBC.
--- NOTE | 2019-10-08 20:48 | NUR ---
RESPIRATORY NOTE: RECEIVED THE PT ON VENT SETTINGS 26/ 550/ 70%/ +5. ETT 7.5 AND 24 AT THE LIP SECURED BY ANCHOR FAST. PT VITALS STABLE BUT TACHYNEIC. BREATHING 32. PT SX SCANT AMOUNT OF BLOOD TINGE SPUTUM. VENT PLUGGED INTO RED OUTLET AND BMV AT BEDSIDE. ALARMS ARE ON AND AUDIBLE. WILL CONTINUE TO MONITOR THROUGHOUT THE NIGHT.
--- NOTE | 2019-10-08 21:23 | NUR ---
NURSE NOTES: 1 unit of platelet counterchecked and verified with Charge nurse. ID band of patient also checked. Transfusion started. Will continue for any reaction.
--- NOTE | 2019-10-08 21:45 | NUR ---
NURSE NOTES: No transfusion reaction noted.
--- NOTE | 2019-10-08 22:30 | NUR ---
NURSE NOTES: 1 unit of platelet transfused. No transfusion reaction noted. Will do CBC 1 hour post transfusion
[2019-10-08 23:48] LABS: HEMATOCRIT 22.1 % (42.0-52.0); HEMOGLOBIN 7.3 G/DL (14.2-18.0); MEAN CORPUSCULAR VOLUME 99 FL (80-99); PLATELET COUNT 33 K/UL (150-450); RED BLOOD COUNT 2.23 M/UL (4.70-6.10); RED CELL DISTRIBUTION WIDTH 15.4 % (11.6-14.8)
[2019-10-08 23:52] LABS: WHITE BLOOD COUNT 42.2 K/UL (4.8-10.8)
[2019-10-09] VITALS (65 sets, daily range): BP systolic 43–136; BP diastolic 13–82
--- NOTE | 2019-10-09 00:11 | NUR ---
NURSE NOTES: CBC 1 hour post transfusion available. Called Dr. Leavitt on his emergency exchange. Left a message. Awaiting for return call.
[2019-10-09] MEDS: D5NS 1,000 ML IV SCH ×2 (00:40→14:00)
--- NOTE | 2019-10-09 01:31 | Progress Note ---
DATE: 10/08/2019 CARDIOLOGY PROGRESS NOTE SUBJECTIVE: Remains in the intensive care unit on full ventilator support. Hypotension noted. Volume resuscitation was initiated. Pressors were avoided. OBJECTIVE: VITAL SIGNS: Blood pressure 135/52, pulse 77, and respiratory rate 26. LUNGS: Bilateral rales. CARDIAC: Regular rhythm and rate. Normal S1 and S2. ABDOMEN: Soft. EXTREMITIES: 1+ dependent edema. LABORATORY DATA: Sputum is positive for KPC, which is Klebsiella pneumoniae, carbapenem-resistant. Blood cultures are positive for MRSA. White count is 42 and hemoglobin 7.3. ABG - 7.28, 41, and 55. IMPRESSION: 1. MRSA bacteremia. 2. Positive risk for endocarditis. 3. KPC pneumonia. 4. Respiratory failure. 5. Hypoxia. 6. Severe protein-calorie malnutrition. 7. Acute on chronic diastolic congestive heart failure. 8. Pulmonary hypertension. 9. Remains critical and guarded. 10. Anemia, multifactorial. PLAN: 1. Ventilator support. 2. Stress dose steroids. 3. Antimicrobials per infectious disease senior information security consultant. 4. Skin care. 5. Packed red blood cell and platelet transfusions. 6. Volume support. 7. Avoiding pressors as best as able at this time. Ar Gomez M.D. DR: ABBI JOB#: [id number] CC:
--- NOTE | 2019-10-09 02:00 | NUR ---
NURSE NOTES: Patient afebrile. Tolerating feeding
--- NOTE | 2019-10-09 04:00 | NUR ---
NURSE NOTES: Bedf bath, oral care done.
--- NOTE | 2019-10-09 07:21 | NUR ---
HAND-OFF: Report given to REINALDO Santizo.
--- NOTE | 2019-10-09 07:22 | NUR ---
NURSE NOTES: RECEIVED PATIENT FROM Tay ALVARENGA RN. PATIENT IS LYING IN BED, OBTUNDED. HOOKED TO THREAD WEAVER. ORALLY INTUBATED. ETT 7.5 AT 24CM LIP LINE. VENT SETTINGS AC 26, VT 550, FiO2 70, PEEP 5. SATING AT 92%. NO SIGNS OF CARDIO OR RESPI DISTRESS OF THE MOMENT. OGT NOTED WITH GTF RUNNING GLUCERNA 1.5 AT 20ML/HR. CERRATO CONNECTED BAG, PATENT AND DRAINING DARK URINE. NOTED SKIN ALTERATION. ON P200 MATTRESS. R UA PICC LINE, DRESSING DRY AND INTACT. CALL LIGHT WITHIN REACH. BED AT LOWEST POSITION. SIDE RAILS UP. WILL CONTINUE TO MONITOR.
--- NOTE | 2019-10-09 07:49 | NUR ---
RESPIRATORY NOTE: received pt orally intubated with ETT 7.5 placed 24cm at the lip. ETT is secured via anchor fast. reddening/dried blood inside mouth area and also on right cheek. RN will be notified. pt on current vent settings breathing slightly tachypneic but in no distress. alarms are audible with ambu bag at bedside. will attempt to titrate fio2 and cont to monitor.
[2019-10-09] MEDS: Tigecycline 50 MG in NS 110 ML IVPB SCH (08:40)
[2019-10-09] MEDS: Polymyxin B Sulfate 250,000 UNITS in D5W 275 ML IV SCH ×2 (08:40→20:27)
[2019-10-09] MEDS: Amiodarone 200mg tab GT SCH ×2 (08:41→20:27)
[2019-10-09] MEDS: Thiamine 100mg tab ORAL SCH (08:41)
[2019-10-09] MEDS: Hydrocortisone 100mg Inj IV SCH (08:42)
--- NOTE | 2019-10-09 08:51 | NUR ---
NURSE NOTES: RESTARTED WITH LEVO DRIP FOLLOWING HOSPITAL PROTOCOL ON DRIPS. NOTED SBP < 85. SUCTIONED SECRETION AND REPOSITIONED. NOTED SWOLLEN BUE AND WHIPPING. WILL CONTINUE TO MONITOR.
--- NOTE | 2019-10-09 09:15 | NUR ---
NURSE NOTES: SEEN AND EXAMINED BY DR WOODS. INFORMED BLOOD-STREAKED NGT RESIDUAL NOTE. WILL CONTINUE TO MONITOR.
--- NOTE | 2019-10-09 09:58 | NUR ---
NURSE NOTES: DR NORRIS INFORMED OF ABG RESULT WITH NEW ORDERS MADE. INFORMED RT OF NEW ORDER FOR FiO2. WILL CONTINUE TO MONITOR.
[2019-10-09] MEDS ORDERED: Sodium Bicarbonate 50ml Carp IV SCH (10:00)
--- NOTE | 2019-10-09 10:00 | NUR ---
NURSE NOTES: TURNED AND REPOSITIONED PATIENT. SUCTIONED SECRETION. SATING AT 82%. FiO2 AT 100%. WILL CONTINUE TO MONITOR.
--- NOTE | 2019-10-09 11:15 | General Progress Note ---
Assessment/Plan Problem List: (1) AMS (altered mental status) ICD Codes: R41.82 - Altered mental status, unspecified SNOMED: 209064276 (2) Sepsis ICD Codes: A41.9 - Sepsis, unspecified organism SNOMED: 30042232 (3) Shock ICD Codes: R57.9 - Shock, unspecified SNOMED: 86331976 (4) Cirrhosis ICD Codes: K74.60 - Unspecified cirrhosis of liver SNOMED: 86675587 (5) Hypoxia ICD Codes: R09.02 - Hypoxemia SNOMED: 675518586 (6) Respiratory failure, acute ICD Codes: J96.00 - Acute respiratory failure, unspecified whether with hypoxia or hypercapnia SNOMED: 35453286 Qualifiers: Qualified Codes: J96.01 - Acute respiratory failure with hypoxia Status: stable Assessment/Plan: vent support pressors as needed ivf stress dose steroids- weaning iv abx per id transfuse prbc and plts tube feeds as tolerated critical and guarded poor prognosis. pt has multiple organ system failure bioethics consult regarding changing code status to dnr. pt without family Subjective ROS Limited/Unobtainable: Yes Constitutional: Reports: malaise, weakness HEENT: Reports: no symptoms Cardiovascular: Reports: no symptoms Respiratory: Reports: shortness of breath, sputum Gastrointestinal/Abdominal: Reports: blood in stool Genitourinary: Reports: no symptoms Neurologic/Psychiatric: Reports: pre-existing deficit Endocrine: Reports: no symptoms Hematologic/Lymphatic: Reports: anemia Allergies: Coded Allergies: PENICILLINS (Verified Allergy, Intermediate, Rash, 09/01/19) Patient stated at this time All Systems: reviewed and negative except above Subjective doing poorly. hypotensive. on pressors. remains intubated. off drips. multiple iv abx. tolerating feeds at low rate. +edema decrease h/h. decreased plts Objective Last 24 Hour Vital Signs Date Time Temp Pulse Resp B/P (MAP) Pulse Ox O2 Delivery O2 Flow Rate FiO2 10/09/19 10:30 47 21 57/19 (32) 92 10/09/19 10:00 64 25 114/75 (88) 92 10/09/19 09:30 60 31 91/50 (64) 92 10/09/19 09:25 66 37 100 10/09/19 09:00 77 28 97/40 (59) 92 10/09/19 08:51 79/63 10/09/19 08:30 76 37 86/39 (55) 91 10/09/19 08:00 65 10/09/19 08:00 97.9 78 30 94/35 (54) 95 10/09/19 08:00 70 10/09/19 07:42 78 31 70 10/09/19 07:00 77 31 96/40 (58) 94 10/09/19 06:00 79 30 101/40 (60) 95 10/09/19 05:00 77 30 70 10/09/19 05:00 77 30 102/40 (60) 100 10/09/19 04:00 70 10/09/19 04:00 Mechanical Ventilator Mechanical Ventilator 10/09/19 04:00 97.5 78 22 101/40 (60) 100 10/09/19 04:00 77 10/09/19 03:35 77 31 70 10/09/19 03:00 80 32 112/53 (72) 93 10/09/19 02:00 79 31 116/46 (69) 95 10/09/19 01:00 79 31 109/46 (67) 95 10/09/19 00:32 80 32 70 10/09/19 00:00 79 10/09/19 00:00 97.5 78 30 109/48 (68) 96 10/09/19 00:00 70 10/09/19 00:00 Mechanical Ventilator Mechanical Ventilator 10/08/19 23:17 78 32 70 10/08/19 23:00 80 29 102/40 (60) 92 10/08/19 22:30 80 29 116/43 (67) 94 10/08/19 22:15 81 27 121/51 (74) 95 10/08/19 22:00 80 29 122/49 (73) 95 10/08/19 21:45 97.5 81 27 125/51 (75) 95 10/08/19 21:30 80 27 125/48 (73) 96 10/08/19 21:15 80 27 128/49 (75) 95 10/08/19 21:00 79 27 127/50 (75) 96 10/08/19 20:47 81 30 70 10/08/19 20:45 80 27 124/53 (76) 97 10/08/19 20:30 81 27 132/50 (77) 96 10/08/19 20:15 79 24 130/50 (76) 98 10/08/19 20:00 70 10/08/19 20:00 Mechanical Ventilator Mechanical Ventilator 10/08/19 20:00 97.5 77 26 129/50 (76) 98 10/08/19 20:00 77 10/08/19 19:45 78 26 132/50 (77) 98 10/08/19 19:30 77 26 128/52 (77) 99 10/08/19 19:13 78 27 70 10/08/19 19:00 76 25 135/53 (80) 98 10/08/19 18:30 77 25 135/52 (79) 98 10/08/19 18:00 76 26 127/52 (77) 98 10/08/19 17:30 80 28 121/47 (71) 97 10/08/19 17:00 77 26 139/50 (79) 100 10/08/19 16:56 78 28 50 10/08/19 16:30 76 27 135/54 (81) 100 10/08/19 16:00 77 10/08/19 16:00 50 10/08/19 16:00 Mechanical Ventilator Mechanical Ventilator 10/08/19 16:00 98.0 77 27 130/52 (78) 100 10/08/19 15:00 131/54 10/08/19 15:00 77 26 135/52 (79) 100 10/08/19 14:36 79 24 50 10/08/19 14:30 78 25 142/55 (84) 100 10/08/19 14:00 76 27 130/54 (79) 100 10/08/19 14:00 144/58 10/08/19 13:30 76 26 127/51 (76) 100 10/08/19 13:00 123/50 10/08/19 13:00 77 26 123/49 (73) 100 10/08/19 12:33 81 26 50 10/08/19 12:30 79 27 135/52 (79) 100 10/08/19 12:00 75 10/08/19 12:00 Mechanical Ventilator Mechanical Ventilator 10/08/19 12:00 50 10/08/19 12:00 142/59 10/08/19 12:00 98.3 76 27 143/57 (85) 100 Intake and Output 10/08/19 10/09/19 19:00 07:00 Intake Total 2329.916 ml 1340 ml Output Total 540 ml 430 ml Balance 1789.916 ml 910 ml Free Water 90 ml IV Total 1999.916 ml 1100 ml Tube Feeding 240 ml 240 ml Output Urine Total 240 ml 80 ml Stool Total 300 ml 350 ml # Bowel Movements 3 3 Laboratory Tests 10/08/19 23:30: White Blood Count 42.2*H, Red Blood Count 2.23L, Hemoglobin 7.3L, Hematocrit 22.1L, Mean Corpuscular Volume 99, Mean Corpuscular Hemoglobin 32.8H, Mean Corpuscular Hemoglobin Concent 33.1, Red Cell Distribution Width 15.4H, Platelet Count 33#L, Mean Platelet Volume 6.6, Neutrophils (%) (Auto) , Lymphocytes (%) (Auto) , Monocytes (%) (Auto) , Eosinophils (%) (Auto) , Basophils (%) (Auto) , Differential Total Cells Counted 100, Neutrophils % ( Manual) 90H, Lymphocytes % (Manual) 8L, Monocytes % (Manual) 2, Eosinophils % ( Manual) 0, Basophils % (Manual) 0, Band Neutrophils 0, Platelet Estimate DecreasedL, Platelet Morphology Normal, Hypochromasia 3+, Anisocytosis 1+, Spherocytes 2+ 10/09/19 09:30: Arterial Blood pH 7.152*L, Arterial Blood Partial Pressure CO2 54.8H, Arterial Blood Partial Pressure O2 58.6L, Arterial Blood HCO3 18.7L, Arterial Blood Oxygen Saturation 83.8*L, Arterial Blood Base Excess -9.6*L, Giovanny Test Positive Height (Feet): 5 Height (Inches): 8.00 Weight (Pounds): 122 Objective General Appearance: WD/WN, lethargic. orally intubated Neck: supple Cardiovascular: regular rhythm Respiratory/Chest: lungs td rhonchi Abdomen: normal bowel sounds, non tender. small reducible periumbilical hernia Edema: no edema noted Arm (L), no edema noted Arm (R), no edema noted Leg (L), no edema noted Leg (R), no edema noted Pedal (L), no edema noted Pedal (R), no edema noted Generalized Henry Leavitt MD Oct 09, 2019 11:15
--- NOTE | 2019-10-09 11:17 | NUR ---
NURSE NOTES: NOTED SEIZURE FOR AROUND 5-[address] WOODS[address] AWAITING FOR CALL BACK.WILL CONTINUE TO MONITOR.
[2019-10-09 11:34] LABS: HEMATOCRIT 23.4 % (42.0-52.0); HEMOGLOBIN 7.5 G/DL (14.2-18.0); MEAN CORPUSCULAR VOLUME 102 FL (80-99); PLATELET COUNT 13 K/UL (150-450); RED BLOOD COUNT 2.28 M/UL (4.70-6.10); RED CELL DISTRIBUTION WIDTH 16.2 % (11.6-14.8)
[2019-10-09] MEDS: LORazepam Inj 2mg/ml 1ml IV PRN ×3 (11:49→21:18)
[2019-10-09 11:51] LABS: WHITE BLOOD COUNT 42.1 K/UL (4.8-10.8)
--- NOTE | 2019-10-09 12:16 | Surgery Progress Note ---
Surgery Progress Note Subjective Additional Comments declining on pressors hypotensive desaturating no reflex Objective Last 24 Hour Vital Signs Date Time Temp Pulse Resp B/P (MAP) Pulse Ox O2 Delivery O2 Flow Rate FiO2 10/09/19 12:13 100/39 10/09/19 11:30 87 23 94/27 (49) 91 10/09/19 11:26 87 29 100 10/09/19 11:15 85 25 53/41 (45) 94 10/09/19 11:00 63 14 60/47 (51) 69 10/09/19 11:00 60/47 10/09/19 10:30 47 21 57/19 (32) 92 10/09/19 10:00 64 25 114/75 (88) 92 10/09/19 10:00 114/75 10/09/19 09:30 60 31 91/50 (64) 92 10/09/19 09:25 66 37 100 10/09/19 09:00 77 28 97/40 (59) 92 10/09/19 09:00 97/40 10/09/19 08:51 79/63 10/09/19 08:30 76 37 86/39 (55) 91 10/09/19 08:00 65 10/09/19 08:00 97.9 78 30 94/35 (54) 95 10/09/19 08:00 70 10/09/19 07:42 78 31 70 10/09/19 07:00 77 31 96/40 (58) 94 10/09/19 06:00 79 30 101/40 (60) 95 10/09/19 05:00 77 30 70 10/09/19 05:00 77 30 102/40 (60) 100 10/09/19 04:00 70 10/09/19 04:00 Mechanical Ventilator Mechanical Ventilator 10/09/19 04:00 97.5 78 22 101/40 (60) 100 10/09/19 04:00 77 10/09/19 03:35 77 31 70 10/09/19 03:00 80 32 112/53 (72) 93 10/09/19 02:00 79 31 116/46 (69) 95 10/09/19 01:00 79 31 109/46 (67) 95 10/09/19 00:32 80 32 70 10/09/19 00:00 79 10/09/19 00:00 97.5 78 30 109/48 (68) 96 10/09/19 00:00 70 10/09/19 00:00 Mechanical Ventilator Mechanical Ventilator 10/08/19 23:17 78 32 70 10/08/19 23:00 80 29 102/40 (60) 92 10/08/19 22:30 80 29 116/43 (67) 94 10/08/19 22:15 81 27 121/51 (74) 95 10/08/19 22:00 80 29 122/49 (73) 95 10/08/19 21:45 97.5 81 27 125/51 (75) 95 10/08/19 21:30 80 27 125/48 (73) 96 10/08/19 21:15 80 27 128/49 (75) 95 10/08/19 21:00 79 27 127/50 (75) 96 10/08/19 20:47 81 30 70 10/08/19 20:45 80 27 124/53 (76) 97 10/08/19 20:30 81 27 132/50 (77) 96 10/08/19 20:15 79 24 130/50 (76) 98 10/08/19 20:00 70 10/08/19 20:00 Mechanical Ventilator Mechanical Ventilator 10/08/19 20:00 97.5 77 26 129/50 (76) 98 10/08/19 20:00 77 10/08/19 19:45 78 26 132/50 (77) 98 10/08/19 19:30 77 26 128/52 (77) 99 10/08/19 19:13 78 27 70 10/08/19 19:00 76 25 135/53 (80) 98 10/08/19 18:30 77 25 135/52 (79) 98 10/08/19 18:00 76 26 127/52 (77) 98 10/08/19 17:30 80 28 121/47 (71) 97 10/08/19 17:00 77 26 139/50 (79) 100 10/08/19 16:56 78 28 50 10/08/19 16:30 76 27 135/54 (81) 100 10/08/19 16:00 77 10/08/19 16:00 50 10/08/19 16:00 Mechanical Ventilator Mechanical Ventilator 10/08/19 16:00 98.0 77 27 130/52 (78) 100 1/24/20 15:00 131/54 10/08/19 15:00 77 26 135/52 (79) 100 10/08/19 14:36 79 24 50 10/08/19 14:30 78 25 142/55 (84) 100 10/08/19 14:00 76 27 130/54 (79) 100 10/08/19 14:00 144/58 10/08/19 13:30 76 26 127/51 (76) 100 10/08/19 13:00 123/50 10/08/19 13:00 77 26 123/49 (73) 100 10/08/19 12:33 81 26 50 10/08/19 12:30 79 27 135/52 (79) 100 I&O Intake and Output 10/08/19 10/09/19 19:00 07:00 Intake Total 2329.916 ml 1415 ml Output Total 540 ml 430 ml Balance 1789.916 ml 985 ml Free Water 90 ml IV Total 1999.916 ml 1175 ml Tube Feeding 240 ml 240 ml Output Urine Total 240 ml 80 ml Stool Total 300 ml 350 ml # Bowel Movements 3 3 Dressing: other Wound: other Drains: other Cardiovascular: RSR Respiratory: decreased breath sounds Abdomen: soft, non-distended, decreased bowel sounds Extremities: no cyanosis Laboratory Tests Test 10/08/19 23:30 10/09/19 09:30 10/09/19 10:25 White Blood Count 42.2 K/UL (4.8-10.8) *H 42.1 K/UL (4.8-10.8) *H Red Blood Count 2.23 M/UL (4.70-6.10) L 2.28 M/UL (4.70-6.10) L Hemoglobin 7.3 G/DL (14.2-18.0) L 7.5 G/DL (14.2-18.0) L Hematocrit 22.1 % (42.0-52.0) L 23.4 % (42.0-52.0) L Mean Corpuscular Volume 99 FL (80-99) 102 FL (80-99) H Mean Corpuscular Hemoglobin 32.8 PG (27.0-31.0) H 33.0 PG (27.0-31.0) H Mean Corpuscular Hemoglobin Concent 33.1 G/DL (32.0-36.0) 32.2 G/DL (32.0-36.0) Red Cell Distribution Width 15.4 % (11.6-14.8) H 16.2 % (11.6-14.8) H Platelet Count 33 K/UL (150-450) #L 13 K/UL (150-450) #L Mean Platelet Volume 6.6 FL (6.5-10.1) 8.6 FL (6.5-10.1) Neutrophils (%) (Auto) % (45.0-75.0) % (45.0-75.0) Lymphocytes (%) (Auto) % (20.0-45.0) % (20.0-45.0) Monocytes (%) (Auto) % (1.0-10.0) % (1.0-10.0) Eosinophils (%) (Auto) % (0.0-3.0) % (0.0-3.0) Basophils (%) (Auto) % (0.0-2.0) % (0.0-2.0) Differential Total Cells Counted 100 Neutrophils % (Manual) 90 % (45-75) H Pending Lymphocytes % (Manual) 8 % (20-45) L Pending Monocytes % (Manual) 2 % (1-10) Eosinophils % (Manual) 0 % (0-3) Basophils % (Manual) 0 % (0-2) Band Neutrophils 0 % (0-8) Platelet Estimate Decreased L Pending Platelet Morphology Normal Pending Hypochromasia 3+ Anisocytosis 1+ Spherocytes 2+ Arterial Blood pH 7.152 (7.350-7.450) Arterial Blood Partial Pressure CO2 54.8 mmHg (35.0-45.0) H Arterial Blood Partial Pressure O2 58.6 mmHg (75.0-100.0) L Arterial Blood HCO3 18.7 mmol/L (22.0-26.0) L Arterial Blood Oxygen Saturation 83.8 % (95-100) *L Arterial Blood Base Excess -9.6 (-2-2) *L Giovanny Test Positive Plan Problems: (1) Sepsis Assessment & Plan: declining desaturation hypotensive on pressors labs reviewed prognosis guarded Pt presented hyperpigmentation sacrum with loose dry/peeling skin. Non -tender when palpated.Scrotum is erythematous. Pt is incontinent of B and B per staff. Condom cath placed on pt by primary nurse. Pt educated on wound prevention and encouraged to frequently turn ,or at least hourly to prevent skin breakdown. No other skin concerns noted. Tx.plan: Apply Moisture Barrier Paste to sacrum. Cover with Optifoam drsg. Change every 3 days and prn. Apply Cavilon Skin Barrier to both heels. Cover each heel with Optifoam drsg. Change every 7 days and prn. Reposition at least every 2hours or as tolerated. Off-load heels with pillow. DAILY ESTIMATED NEEDS: Needs based on Liver, Pulmonary, Critical care 55kg 22-30 kcals/kg 3625-5267 total kcals 1.25-2 g protein/kg 69-110 g total protein 25-30 mL/kg 0585-4825 total fluid mLs NUTRITION DIAGNOSIS: * Swallowing difficulty R/T dysphagia, respiratory status as evidenced by pt on [facility] soft finely chopped texture- was upgraded to Soft easy chew, was mostly on BIPAP, on non-rebreather during meals-> now orally intubated in ICU, non oral feeds. * Decreased sodium and fat needs r/t clinical status, ascites, as evidenced by s/p paracentesis, elev LFT's, elev T bili (INACTIVE) CURRENT TF:Glucerna 1.5 @20ml- held ENTERAL NUTRITION RECOMMENDATIONS: WHEN HD STABLE: Vital AF 1.2 @ 50ml/hr x 24 hrs to provide 1200ml, 1440kcal, 90g prot, 973ml free water * WHEN PT HEMODYNAMICALLY STABLE: -> initiate Vital AF 1.2 @ 10ml/hr x 6 hrs -> advance 10ml q 4-6 hrs as tolerated -> HOB over 30 degrees/ water flush per MD WITHOUT HD STABILTY: consider trophic feeding of Vital AF 1.2 @ 5-10ml/hr if able to raise bed >30 degrees ADDITIONAL RECOMMENDATIONS: 1) Obtain daily standing weight for accuracy or calibrated bedscale wt current bedscale wt 115 bs vs initial bedscale wt 158lbs 2) Monitor HD stability: on NE @ 30mcg-> now @8mcg-> now off LA trending up (4.0) 3) Monitor renal fxn and liver fxn: creat and T bili trend up 4) WC eval for sacral DTPI (2) Shock Assessment & Plan: Pulmonary arterial opacification is somewhat suboptimal, and small peripheral emboli could be missed. In addition, there is some image degradation due to motion artifact which also precludes exclusion of small peripheral emboli. No gross large vessel pulmonary emboli are demonstrated. The left main pulmonary artery is ectatic, measuring up to 2.5 cm. No isolated right ventricular dilatation. There is generalized four-chamber cardiomegaly. No evidence of thoracic aortic aneurysm or dissection. Normal caliber and branching anatomy of the right neck vessels is noted. There is extensive pulmonary parenchymal disease. There is extensive groundglass opacity involving most of the upper lobes. There is extensive interstitial septal thickening involving the lower lobes, as well as considerable atelectasis and confluent opacity. There is of bronchiectasis, subpleural blebs, and bilateral peripheral honeycombing are also present. There are bilateral small pleural effusions. The extent of the pulmonary parenchymal disease at the lung bases is greater than that which was visualized on abdomen CT scan of 08/23/2019 There is considerable edema of the mediastinal and epicardial fat, but no definite pericardial effusion is demonstrated. No mediastinal or hilar mass or adenopathy. Grossly unremarkable esophagus. The visualized thyroid is unremarkable. No axillary or chest wall mass or adenopathy. There is mild height loss of the T8 vertebral body. It is slightly sclerotic, demonstrates considerable superior and inferior endplate irregularity. There is degenerative spondylosis elsewhere in the thoracic spine. Included upper abdominal anatomy demonstrates atrophic liver with surface nodularity. There is a TIPS shunt in place which is probably patent. There is hypertrophy of the hepatic arteries. Gallstones are noted. There is considerable ascites fluid present. What are probably embolic coils are seen in the region of the splenic capsule. Impression: Somewhat suboptimal pulmonary arterial opacification as well as limitation of exam by motion artifact. Small peripheral emboli not completely excludable. No gross large vessel central pulmonary emboli demonstrated. Mildly dilated left main pulmonary artery, suggestive of but not diagnostic for pulmonary arterial hypertension Cardiomegaly Evidence of anasarca, with diffuse body wall and mediastinal edema, small bilateral pleural effusions, ascites Extensive pulmonary parenchymal disease, as described, with groundglass opacity, interstitial septal thickening, bronchiectasis, subpleural blebs, and peripheral honeycombing. Given the finding of cardiomegaly and anasarca, findings most likely on the basis of pulmonary edema. Pneumonia is also a possibility. In addition, there is probably underlying component of chronic fibrotic change. T8 vertebral body loss of height. This may reflect age-indeterminate compression fracture deformity versus degenerative remodeling. Consider MRI for better characterization if clinically relevant Evidence of hepatic cirrhosis. Evidence of portal hypertension, with a TIPS shunt in place, and ascites. This is been previously described Cholelithiasis Perisplenic embolic coils. Degenerative spondylosis (3) Cirrhosis Assessment & Plan: There is an orogastric tube in place, tip projected at the level of the fundus body junction, proximal port well distal to the expected level of the gastric esophageal junction. There is a TIPS shunt present. Bowel gas pattern is unremarkable. Vascular embolic coils are seen in the left upper quadrant. There is mild lumbar scoliotic deformity and considerable degenerative lumbar spondylosis * Significant interval reduction of ascites status post paracentesis. * Cirrhosis with indwelling patent TIPS shunt. Elevated velocities in the distal aspect of the TIPS shunt > 200 cm/s suggesting a degree of possible in-stent stenosis, especially given recurrent ascites. Correlation with prior ultrasound is essential to assess for interval change in velocities. Patient may benefit from interventional tip study with portal pressure measurements and possible TIPS angioplasty, especially if there is a significant elevation in velocities in the shunt upon comparison with baseline study. * Cholelithiasis. No radiographic evidence to suggest acute cholecystitis. Sonographic Ponce sign reported as negative. (4) Respiratory failure, acute Michael Merrill Oct 09, 2019 12:16
[2019-10-09] MEDS: Phenylephrine 50 MG in D5W 245 ML IV SCH ×3 (12:54→23:39)
--- NOTE | 2019-10-09 12:58 | NUR ---
NURSE NOTES: SEEN AND EXAMINED BY DR GUAJARDO. INFORMED ABG RESULT. TO INCREASE AC RATE. RT INFORMED. STARTED SECOND PRESSOR. WILL CONTINUE TO MONITOR.
[2019-10-09] MEDS ORDERED: Tubing IV Blood Pump IV ONE (13:45)
[2019-10-09] MEDS ORDERED: D5NS 1000ml IV ONE (13:45)
[2019-10-09] MEDS ORDERED: NS 275ml ONE (13:45)
--- NOTE | 2019-10-09 13:58 | NUR ---
[employer]: REVIEW SI: ACUTE RESP FAILURE . SEPSIS . CIRRHOSIS T 97.9 HR 78 RR 37 BP 57/19 SAT 92% MECH VENT FIO2 100% WBC 42.1 H/H 7.5/23.4 BUN 129 CR 1.8 IS: LEVOPHED GTT AMIODARONE GT Q12HR POLYMYXIN B IV Q12HR SOLU-CORTEF IV QD PHENYLEPHRINE IV QD TYGACIL IV Q12HR TRANSFUSE PRBC NGT FEEDING @ 20ML/HR ICU STATUS DCP: PATIENT ADMITTED UNDER TRANSIENT STATUS
--- NOTE | 2019-10-09 14:00 | NUR ---
NURSE NOTES: SEEN AND EXAMINED BY DR GUERRA. INFORMED OF PATIENT'S STATUS. NO NEW ORDER. WILL CONTINUE TO MONITOR.
--- NOTE | 2019-10-09 15:00 | NUR ---
NURSE NOTES: SPOKE WITH ISAIAH ALEX (FRIEND) [phone] THAT HE'S GONNA INFORM THE BROTHER TOMORROW.
--- NOTE | 2019-10-09 15:04 | NUR ---
NURSE NOTES: STARTED BLOOD TRANSFUSION. TOLERATING FOR ABG. SATING AT 89-90%. WILL CONTINUE TO MONITOR.
--- NOTE | 2019-10-09 16:22 | Pulmonolgy Critical Care Note ---
Critical Care - Asmt/Plan Assessment/Plan: Pulmonary CCM Progress Note Assessment/Plan Impression - MRSA Pneumonia - Persistent leucocytosis - Hypoxic respiratory Failure - worsening - CHFpEF - Atrial Fibrillation - Cirrhosis, h/o ETOH Use, ascites s/p Paracentesis - Homeless - Enterobacter UTI s/p rx - Thrombocytopenia - Anasarca - tachycardia - overwhelming sepsis +++ positive cultures - worsening pulmonary inflitrates PLAN still on high fio2-/PEEP - adjust adjust vent currently unstable and extremely critical remains critically ill taper oxygen and monitor CXR and ABG routine in ICU prognosis remains poor still too ill for intervention impression, plan, and exam edited and reviewed in detail care discussed with RN Subjective ROS Limited/Unobtainable: Yes Allergies: Coded Allergies: PENICILLINS (Verified Allergy, Intermediate, Rash, 09/01/19) Patient stated at this time Subjective care noted on vent on full vent support/ cxr worse O2 at 60% P10 Objective Vital Signs Noted Objective WDWN, OGT, ETT NAD reduced breath sounds bilaterally without rhonchi or wheeze [id number] without MRG NABS nontender no HSM some distention no CC some edema sedated Critical Care - Objective Last 24 Hour Vital Signs Date Time Temp Pulse Resp B/P (MAP) Pulse Ox O2 Delivery O2 Flow Rate FiO2 10/09/19 16:00 Mechanical Ventilator Mechanical Ventilator 10/09/19 16:00 98.7 96 28 110/39 (62) 89 10/09/19 16:00 96 10/09/19 15:36 95 32 100 10/09/19 15:30 95 32 113/35 (61) 90 10/09/19 15:13 111/31 10/09/19 15:00 92 31 111/31 (57) 89 10/09/19 14:30 89 32 89/44 (59) 89 10/09/19 14:00 95 38 124/27 (59) 90 10/09/19 14:00 124/27 10/09/19 13:30 95 32 122/31 (61) 89 10/09/19 13:23 96 32 100 10/09/19 13:00 127/38 10/09/19 13:00 95 31 127/38 (67) 89 10/09/19 12:55 100 10/09/19 12:54 96 60/42 10/09/19 12:30 95 29 107/38 (61) 89 10/09/19 12:13 100/39 10/09/19 12:00 93 27 103/76 (85) 90 10/09/19 12:00 100 10/09/19 12:00 103/76 10/09/19 12:00 Mechanical Ventilator Mechanical Ventilator 10/09/19 12:00 93 10/09/19 11:30 87 23 94/27 (49) 91 10/09/19 11:26 87 29 100 10/09/19 11:15 85 25 53/41 (45) 94 10/09/19 11:00 63 14 60/47 (51) 69 10/09/19 11:00 60/47 10/09/19 10:30 47 21 57/19 (32) 92 10/09/19 10:05 100 10/09/19 10:00 64 25 114/75 (88) 92 10/09/19 10:00 85 10/09/19 10:00 114/75 10/09/19 09:30 60 31 91/50 (64) 92 10/09/19 09:25 66 37 100 10/09/19 09:00 77 28 97/40 (59) 92 10/09/19 09:00 97/40 10/09/19 08:51 79/63 10/09/19 08:30 76 37 86/39 (55) 91 10/09/19 08:00 65 10/09/19 08:00 97.9 78 30 94/35 (54) 95 10/09/19 08:00 70 10/09/19 08:00 Mechanical Ventilator Mechanical Ventilator 10/09/19 07:42 78 31 70 10/09/19 07:00 77 31 96/40 (58) 94 10/09/19 06:00 79 30 101/40 (60) 95 10/09/19 05:00 77 30 70 10/09/19 05:00 77 30 102/40 (60) 100 10/09/19 04:00 70 10/09/19 04:00 Mechanical Ventilator Mechanical Ventilator 10/09/19 04:00 97.5 78 22 101/40 (60) 100 10/09/19 04:00 77 10/09/19 03:35 77 31 70 10/09/19 03:00 80 32 112/53 (72) 93 10/09/19 02:00 79 31 116/46 (69) 95 10/09/19 01:00 79 31 109/46 (67) 95 10/09/19 00:32 80 32 70 10/09/19 00:00 79 10/09/19 00:00 97.5 78 30 109/48 (68) 96 10/09/19 00:00 70 10/09/19 00:00 Mechanical Ventilator Mechanical Ventilator 10/08/19 23:17 78 32 70 10/08/19 23:00 80 29 102/40 (60) 92 10/08/19 22:30 80 29 116/43 (67) 94 10/08/19 22:15 81 27 121/51 (74) 95 10/08/19 22:00 80 29 122/49 (73) 95 10/08/19 21:45 97.5 81 27 125/51 (75) 95 10/08/19 21:30 80 27 125/48 (73) 96 10/08/19 21:15 80 27 128/49 (75) 95 10/08/19 21:00 79 27 127/50 (75) 96 10/08/19 20:47 81 30 70 10/08/19 20:45 80 27 124/53 (76) 97 10/08/19 20:30 81 27 132/50 (77) 96 10/08/19 20:15 79 24 130/50 (76) 98 10/08/19 20:00 70 10/08/19 20:00 Mechanical Ventilator Mechanical Ventilator 10/08/19 20:00 97.5 77 26 129/50 (76) 98 10/08/19 20:00 77 10/08/19 19:45 78 26 132/50 (77) 98 10/08/19 19:30 77 26 128/52 (77) 99 10/08/19 19:13 78 27 70 10/08/19 19:00 76 25 135/53 (80) 98 10/08/19 18:30 77 25 135/52 (79) 98 10/08/19 18:00 76 26 127/52 (77) 98 10/08/19 17:30 80 28 121/47 (71) 97 10/08/19 17:00 77 26 139/50 (79) 100 10/08/19 16:56 78 28 50 10/08/19 16:30 76 27 135/54 (81) 100 Critical Care - Subjective ROS Limited/Unobtainable: No FI02: 100 Vent Support Breath Rate: 26 Vent Support Mode: AC Vent Tidal Volume: 550 Sputum Amount: Small PEEP: 5.0 PIP: 44 Tube Feeding Amount: 20 I&O: Intake and Output 10/08/19 10/09/19 19:00 07:00 Intake Total 2329.916 ml 1415 ml Output Total 540 ml 430 ml Balance 1789.916 ml 985 ml Free Water 90 ml IV Total 1999.916 ml 1175 ml Tube Feeding 240 ml 240 ml Output Urine Total 240 ml 80 ml Stool Total 300 ml 350 ml # Bowel Movements 3 3 ET-Tube: 7.5 ET Position: 24 Ar Cook MD Oct 09, 2019 16:22
--- NOTE | 2019-10-09 17:00 | NUR ---
NURSE NOTES: PATIENT KEPT CLEAN AND DRY. STILL ON ALEN AND LEVO FOLLOWING HOSPITAL PROTOCOL ON DRIP.
[2019-10-09] MEDS: Norepinephrine Bitartrate 8 MG in D5W 500ml 500 ML IV SCH ×2 (17:49→22:03)
--- NOTE | 2019-10-09 19:15 | NUR ---
RESPIRATORY NOTE: Received pt on AC 30, 550VT, 100%, PEEP +5. MD Joey just ordered to increase PEEP to +8. Pt is intubated w/ ETT 7.5 @ 24cm lipline, secured by anchorfast. Pt flat effect/obtunded. B/S td. rhonchi/diminished, sxn small amounts of thick/thin, vergara-brown secretions w/ occasional blood. No hand restraints as pt unable to move arms. Bite block in place, pt clenches jaw. Vent plugged into red outlet, ambubag at bedside. Pt in no apparent distress at this time. Will continue to monitor pt.
--- NOTE | 2019-10-09 19:22 | NUR ---
HAND-OFF: Report given to Tay Helms RN.
--- NOTE | 2019-10-09 19:23 | NUR ---
NURSE NOTES: Endorsement received from REINLADO Santizo. Patient obtunded. Orally intubated with 7.5, 24 lipline. AC 30, 550, PEEP 8, 100%. OGT in place. Feeding on hold. Right upper arm PICC, on D5NS 75 ml/hr. Levophed at 30mcg/min, Phenylephrine at 100mcg/min. To keep SBP >85. Rectal tube in place. Tellez catheter present. Bilateral arms weeping. SCDs in place. On P200 mattress. Head of bed kept elevated. Call light within reach. Bed locked and in low position. Bed alarm on. Will continue to monitor
--- NOTE | 2019-10-09 20:20 | NUR ---
NURSE NOTES: Followed up at blood bank regarding 1 unit of platlet and 1 unit PRBC. As per the staff, she will check the status and call me back
[2019-10-09] MEDS: Dyna-Hex 2% Top Sol 2oz TOPIC SCH (20:27)
--- NOTE | 2019-10-09 20:28 | NUR ---
NURSE NOTES: Amiodarone tab not given due to patient is hypotensive
--- NOTE | 2019-10-09 21:20 | NUR ---
NURSE NOTES: Patient having generalized seizure. PRN ativan given
--- NOTE | 2019-10-09 21:30 | NUR ---
NURSE NOTES: Followed up again from the lab regarding the 1 unit of platelet. As per staff she contacted MD regarding his order for the plateletpheresis and she is still awaiting for his response. As per her she will inform me when the unit is available.
--- NOTE | 2019-10-09 23:33 | NUR ---
NURSE NOTES: 1 unit of platelet counterchecked by Charge Nurse. ID band verified. Transfusion started.
[2019-10-10] VITALS (62 sets, daily range): BP systolic 32–172; BP diastolic 11–140
--- NOTE | 2019-10-10 00:35 | NUR ---
NURSE NOTES: 1 unit platelet consumed. No transfusion reaction. Will continue to monitor.
--- NOTE | 2019-10-10 01:20 | NUR ---
NURSE NOTES: Another RN verified and counterchecked 1 unit of PRBC, patient's ID band and blood bank form. Transfusion started. Will continue to monitor.
[2019-10-10] MEDS: Norepinephrine Bitartrate 8 MG in D5W 500ml 500 ML IV SCH ×5 (02:43→21:40)
[2019-10-10] MEDS: LORazepam Inj 2mg/ml 1ml IV PRN (02:47)
[2019-10-10] MEDS: D5NS 1,000 ML IV SCH ×3 (02:49→20:57)
--- NOTE | 2019-10-10 03:30 | NUR ---
NURSE NOTES: 1 unit PRBC consumed. No transfusion reaction noted
[2019-10-10] MEDS: Phenylephrine 50 MG in D5W 245 ML IV SCH ×3 (03:52→12:04)
--- NOTE | 2019-10-10 04:00 | NUR ---
NURSE NOTES: Patient episode of seizure increasing in frequency. Ativan given but not effective. SBP 70s. Max on levophed and phenylephrine drip. PRN NS bolus also has been given. Called Dr. Leavitt on his emergency exchange. Left a message. Awaiting for return call
--- NOTE | 2019-10-10 04:30 | NUR ---
NURSE NOTES: As per bundle helper, he is unable to get blood sample for the morning labs. Another bundle helper will come and try.
--- NOTE | 2019-10-10 05:00 | NUR ---
NURSE NOTES: Patient very unstable for sponge bath. Change of gown done.
--- NOTE | 2019-10-10 05:30 | NUR ---
NURSE NOTES: 2nd attempt to reach Dr Leavitt for the same concerns. Left a message, awaiting for return call.
--- NOTE | 2019-10-10 05:46 | NUR ---
NURSE NOTES: Prevacid per OGT not given due to patient currently having seizures
--- NOTE | 2019-10-10 06:20 | NUR ---
NURSE NOTES: Received telephone order from Dr. Leavitt to give Dilantin 1g IV x one
[2019-10-10] MEDS ORDERED: Phenytoin 1,000 MG in NS 275 ML IVPB ONE (07:00)
--- NOTE | 2019-10-10 07:28 | NUR ---
HAND-OFF: Report given to
--- NOTE | 2019-10-10 07:28 | NUR ---
NURSE NOTES: Pt received from REINALDO Yoon. Pt noted with continuous body twitches, does not respond to name, shaking, or pain. Pupils are equal and round, 4 mm bilaterally with sluggish light reaction. Noted in SR to manager monitoring with HR 70-80 bpm. Radial and dorsalis pedis pulses noted weak 1+ bilaterally. Cap refill 5 sec. 1+ pitting edema noted to bilateral upper extremities. 2+ pitting edema noted to bilateral hands. Pt is intubated with 7.5 ETT 24 cm at right lip. settings noted AC 30 TV 550 FiO2 100% Peep 8. Right upper lung lobe diminished, left upper lung lobe is CTA, and bilateral lower lobes are diminished with fine crackles upon auscultation. Pt has an OGT clamped at this time with 200 cc residuals noted. Moderate amount of bright red blood noted leaking from oral cavity. Bowel sounds noted hypoactive on all abd quadrants. abd is round, firm, with notable hernia. F/C noted draining minimal amount of isabel urine. Skin alterations and ecchymosis noted. Serous fluid noted weeping from upper extremities and scrotum. The scrotum is edematous. Pt has a ALVINO PICC running levophed at 30 mcg/min, neosynepherine at 240 mcg/min, dilantin at 295 cc/hr, and D5NS at 75 cc/hr. Bed in lowest position, alarm on, side rails up x 2 and padded per seizure precaution. Call light within reach. Will continue to monitor. Addendum: 10/10/19 at 0911 by Breann Spaulding RN Late entry: rectal tube noted draining dark brown/black liquid stool
--- NOTE | 2019-10-10 07:30 | NUR ---
RESPIRATORY NOTE: pt orally intubated with ETT 7.5 place 24cm at the lip. ETT secured via anchor fast with redness around mouth area and skin wound on right cheek. RN notified. pt on current vent settings with alarms set and audible. ambu bag also at bedside. will cont to monitor throughout the day
--- NOTE | 2019-10-10 08:00 | NUR ---
NURSE NOTES: Dr Leavitt at bedside assessing pt and made aware of notable bleeding from oral cavity and BP trends despite receiving max dose of levophed and neosynepherine. He was also made of notable seizures with Dilantin IV running.
[2019-10-10] MEDS: Hydrocortisone 100mg Inj IV SCH (08:02)
[2019-10-10] MEDS: Thiamine 100mg tab ORAL SCH (08:02)
[2019-10-10] MEDS: Acetaminophen 650mg/20.3ml NG PRN (08:02)
[2019-10-10] MEDS: Amiodarone 200mg tab GT SCH ×2 (08:02→20:57)
--- NOTE | 2019-10-10 09:30 | NUR ---
NURSE NOTES: Slight improvement in body twitches noted. Mild twitches are noted only to left lower extremity at this time. Pt's spO2 improving, now above 90s. Will continue to monitor.
[2019-10-10] MEDS: Polymyxin B Sulfate 250,000 UNITS in D5W 275 ML IV SCH ×2 (09:45→20:59)
--- NOTE | 2019-10-10 10:00 | NUR ---
Pt's code status changed to DNR per Dr. Leavitt. Friends at bedside, Oksana and Oniel Mayorga. They requested to be contacted if pt expires at [phone]. Oniel states the pt was his best friend previously and that the pt's brother was contacted about pt's declining status but refuses to come see pt.
--- NOTE | 2019-10-10 11:39 | General Progress Note ---
Assessment/Plan Problem List: (1) AMS (altered mental status) ICD Codes: R41.82 - Altered mental status, unspecified SNOMED: 890033070 (2) Sepsis ICD Codes: A41.9 - Sepsis, unspecified organism SNOMED: 70027067 (3) Shock ICD Codes: R57.9 - Shock, unspecified SNOMED: 93874062 (4) Cirrhosis ICD Codes: K74.60 - Unspecified cirrhosis of liver SNOMED: 81692069 (5) Hypoxia ICD Codes: R09.02 - Hypoxemia SNOMED: 192421683 (6) Respiratory failure, acute ICD Codes: J96.00 - Acute respiratory failure, unspecified whether with hypoxia or hypercapnia SNOMED: 00532760 Qualifiers: Qualified Codes: J96.01 - Acute respiratory failure with hypoxia Status: stable Assessment/Plan: vent support pressors as needed ivf stress dose steroids- weaning iv abx per id transfuse prbc and plts tube feeds as tolerated critical and guarded poor prognosis. pt has multiple organ system failure cpr would be futile and inappropriate in this pt with multiorgan system failure dnr ordered Subjective Allergies: Coded Allergies: PENICILLINS (Verified Allergy, Intermediate, Rash, 09/01/19) Patient stated at this time Subjective doing poorly. hypotensive. on max pressors. remains intubated.+sz activity. multiple iv abx. tolerating feeds at low rate. +edema decrease h/h. decreased plts. s/p prbc and plt transfusion Objective Last 24 Hour Vital Signs Date Time Temp Pulse Resp B/P (MAP) Pulse Ox O2 Delivery O2 Flow Rate FiO2 10/10/19 11:04 76 30 100 10/10/19 11:00 76 30 70/35 (47) 96 10/10/19 10:33 76 9 54/22 (33) 95 10/10/19 10:30 76 7 32/22 (25) 94 10/10/19 10:15 77 14 94/45 (61) 93 10/10/19 10:00 78 24 33/14 (20) 93 10/10/19 09:30 78 26 79/58 (65) 93 10/10/19 09:00 75 8 62/22 (35) 95 10/10/19 08:55 74 30 100 10/10/19 08:32 98.3 10/10/19 08:30 98.3 78 28 172/140 (151) 89 10/10/19 08:01 77 113/56 10/10/19 08:00 100 10/10/19 08:00 Mechanical Ventilator Mechanical Ventilator Mechanical Ventilator 10/10/19 08:00 101.6 79 29 150/126 (134) 87 10/10/19 08:00 79 10/10/19 07:25 77 30 100 10/10/19 07:00 94 34 113/56 (75) 75 10/10/19 06:53 122/41 10/10/19 06:00 122 33 70/18 (35) 78 10/10/19 06:00 74/36 10/10/19 05:45 137 38 84/42 (56) 78 10/10/19 05:36 118 36 62/26 (38) 76 10/10/19 05:30 128 28 42/30 (34) 79 10/10/19 05:15 113 26 79/40 (53) 81 10/10/19 05:00 74/36 10/10/19 05:00 138 37 74/36 (49) 88 10/10/19 04:55 109 30 100 10/10/19 04:45 122 37 71 10/10/19 04:30 86 30 78/13 (34) 97 10/10/19 04:15 81 20 72/18 (36) 68 10/10/19 04:00 100 10/10/19 04:00 72/18 10/10/19 04:00 Mechanical Ventilator Mechanical Ventilator 10/10/19 04:00 98.9 84 32 59/35 (43) 86 10/10/19 04:00 74 10/10/19 03:52 109 74/43 10/10/19 03:45 84 28 74/43 (53) 90 10/10/19 03:30 127 44 72/25 (41) 73 10/10/19 03:15 130 34 81/55 (64) 86 10/10/19 03:06 86 30 100 10/10/19 03:00 81/55 10/10/19 03:00 84 30 82/13 (36) 95 10/10/19 02:45 122 38 64/38 (47) 76 10/10/19 02:43 76/17 10/10/19 02:35 143 25 76/17 (36) 73 10/10/19 02:30 93 28 120/76 (91) 82 10/10/19 02:15 85 30 80/13 (35) 95 10/10/19 02:00 85 22 72/11 (31) 76 10/10/19 02:00 80/13 10/10/19 01:45 98 15 92/37 (55) 75 10/10/19 01:30 86 29 71/19 (36) 94 10/10/19 01:15 82 31 75/11 (32) 95 10/10/19 01:05 92 31 100 10/10/19 01:00 75/11 10/10/19 01:00 99 35 71/27 (42) 70 10/10/19 00:30 89 30 75/24 (41) 91 10/10/19 00:00 98.2 86 10 71/27 (42) 90 10/10/19 00:00 68 10/10/19 00:00 100 10/10/19 00:00 71/20 10/10/19 00:00 Mechanical Ventilator Mechanical Ventilator 10/09/19 23:45 86 18 78/21 (40) 92 10/09/19 23:39 84 84/21 10/09/19 23:30 80 25 84/21 (42) 93 10/09/19 23:15 143 44 74/45 (55) 76 10/09/19 23:00 90 35 85/47 (60) 87 10/09/19 23:00 74/45 10/09/19 22:48 91 30 100 10/09/19 22:45 91 15 85/30 (48) 92 10/09/19 22:30 90 0 87/27 (47) 92 10/09/19 22:15 89 5 82/26 (44) 91 10/09/19 22:03 63/25 10/09/19 22:00 63/25 10/09/19 22:00 88 11 63/25 (38) 91 10/09/19 21:45 87 12 69/21 (37) 92 10/09/19 21:30 80 19 89/24 (45) 90 10/09/19 21:27 100 33 98/24 (48) 62 10/09/19 21:15 100 0 61/29 (40) 74 10/09/19 21:00 61/29 1/25/20 21:00 90 27 86/29 (48) 90 10/09/19 20:45 90 24 89/28 (48) 91 10/09/19 20:42 91 30 100 10/09/19 20:33 91 28 95/13 (40) 91 10/09/19 20:30 90 26 69/56 (60) 91 10/09/19 20:15 89 26 92/18 (42) 90 10/09/19 20:00 98.5 89 24 85/27 (46) 90 10/09/19 20:00 Mechanical Ventilator Mechanical Ventilator 10/09/19 20:00 84 10/09/19 20:00 92/18 10/09/19 20:00 100 10/09/19 19:45 88 25 89/27 (47) 90 10/09/19 19:30 88 22 90/20 (43) 90 10/09/19 19:12 86 30 100 10/09/19 19:00 81 29 96/16 (42) 93 10/09/19 19:00 96/16 10/09/19 18:45 99 0 122/65 (84) 54 10/09/19 18:30 91 29 127/82 (97) 79 10/09/19 18:15 93 32 119/30 (59) 88 10/09/19 18:00 114/39 10/09/19 18:00 88 24 114/39 (64) 89 10/09/19 17:53 89 114/39 10/09/19 17:49 88/41 10/09/19 17:48 88/41 10/09/19 17:30 95 22 116/60 (78) 94 10/09/19 17:16 92 32 100 10/09/19 17:00 95 33 113/24 (53) 90 20 17:00 113/24 10/09/19 16:30 95 25 121/39 (66) 89 10/09/19 16:00 Mechanical Ventilator Mechanical Ventilator 10/09/19 16:00 98.7 96 28 110/39 (62) 89 10/09/19 16:00 110/39 10/09/19 16:00 96 10/09/19 15:36 95 32 100 10/09/19 15:30 95 32 113/35 (61) 90 10/09/19 15:15 90 31 136/32 (66) 89 10/09/19 15:13 111/31 10/09/19 15:12 111/31 10/09/19 15:00 111/31 10/09/19 15:00 92 31 111/31 (57) 89 10/09/19 14:45 88 33 126/45 (72) 86 10/09/19 14:30 89 32 89/44 (59) 89 10/09/19 14:15 95 32 122/52 (75) 88 10/09/19 14:00 95 38 124/27 (59) 90 10/09/19 14:00 124/27 10/09/19 13:45 95 32 124/24 (57) 88 10/09/19 13:30 95 32 122/31 (61) 89 10/09/19 13:23 96 32 100 10/09/19 13:15 95 30 127/38 (67) 89 10/09/19 13:00 127/38 10/09/19 13:00 95 31 127/38 (67) 89 10/09/19 12:55 100 10/09/19 12:54 96 60/42 10/09/19 12:45 95 31 60/42 (48) 89 10/09/19 12:30 95 29 107/38 (61) 89 10/09/19 12:13 100/39 10/09/19 12:12 100/39 10/09/19 12:00 93 27 103/76 (85) 90 10/09/19 12:00 100 10/09/19 12:00 103/76 10/09/19 12:00 98.7 10/09/19 12:00 Mechanical Ventilator Mechanical Ventilator 10/09/19 12:00 93 10/09/19 11:45 88 28 89/35 (53) 89 Intake and Output 10/09/19 10/10/19 19:00 07:00 Intake Total 2629.8 ml 2654.3 ml Output Total 205 ml 0 ml Balance 2424.8 ml 2654.3 ml Free Water 30 ml IV Total 2559.8 ml 2654.3 ml Tube Feeding 40 ml Output Urine Total 5 ml 0 ml Stool Total 200 ml # Bowel Movements 3 3 Laboratory Tests 10/09/19 15:00: Arterial Blood pH 7.177*L, Arterial Blood Partial Pressure CO2 49.8H, Arterial Blood Partial Pressure O2 58.4L, Arterial Blood HCO3 18.0L, Arterial Blood Oxygen Saturation 86.1*L, Arterial Blood Base Excess -10.0*L, Giovanny Test Positive Height (Feet): 5 Height (Inches): 8.00 Weight (Pounds): 125 Objective General Appearance: WD/WN, lethargic. orally intubated. +twitching Neck: supple Cardiovascular: regular rhythm Respiratory/Chest: lungs td rhonchi Abdomen: normal bowel sounds, non tender. small reducible periumbilical hernia Edema: no edema noted Arm (L), no edema noted Arm (R), no edema noted Leg (L), no edema noted Leg (R), no edema noted Pedal (L), no edema noted Pedal (R), no edema noted Generalized Henry Leavitt MD Oct 10, 2019 11:39
--- NOTE | 2019-10-10 12:00 | NUR ---
NURSE NOTES: No seizure activity/ twitching noted at this time. Pt remains with unchanged mental status, no response to pain stimuli and no eye opening noted. Blood samples dran from PICC line and sent down to lab. Will continue to monitor.
--- NOTE | 2019-10-10 12:05 | Surgery Progress Note ---
Surgery Progress Note Subjective Symptoms: other Objective Last 24 Hour Vital Signs Date Time Temp Pulse Resp B/P (MAP) Pulse Ox O2 Delivery O2 Flow Rate FiO2 10/10/19 12:04 70 64/26 10/10/19 12:03 64/26 10/10/19 11:04 76 30 100 10/10/19 11:00 76 30 70/35 (47) 96 10/10/19 11:00 70/35 10/10/19 10:33 76 9 54/22 (33) 95 10/10/19 10:30 76 7 32/22 (25) 94 10/10/19 10:15 77 14 94/45 (61) 93 10/10/19 10:00 78 24 33/14 (20) 93 10/10/19 10:00 33/14 10/10/19 09:30 78 26 79/58 (65) 93 10/10/19 09:00 75 8 62/22 (35) 95 10/10/19 09:00 62/22 10/10/19 08:55 74 30 100 10/10/19 08:32 98.3 10/10/19 08:30 98.3 78 28 172/140 (151) 89 10/10/19 08:01 77 113/56 10/10/19 08:00 100 10/10/19 08:00 150/26 10/10/19 08:00 Mechanical Ventilator Mechanical Ventilator Mechanical Ventilator 10/10/19 08:00 101.6 79 29 150/126 (134) 87 10/10/19 08:00 79 10/10/19 07:25 77 30 100 10/10/19 07:00 94 34 113/56 (75) 75 10/10/19 06:53 122/41 10/10/19 06:00 122 33 70/18 (35) 78 10/10/19 06:00 74/36 10/10/19 05:45 137 38 84/42 (56) 78 10/10/19 05:36 118 36 62/26 (38) 76 10/10/19 05:30 128 28 42/30 (34) 79 10/10/19 05:15 113 26 79/40 (53) 81 10/10/19 05:00 74/36 10/10/19 05:00 138 37 74/36 (49) 88 10/10/19 04:55 109 30 100 10/10/19 04:45 122 37 71 10/10/19 04:30 86 30 78/13 (34) 97 10/10/19 04:15 81 20 72/18 (36) 68 10/10/19 04:00 100 10/10/19 04:00 72/18 10/10/19 04:00 Mechanical Ventilator Mechanical Ventilator 10/10/19 04:00 98.9 84 32 59/35 (43) 86 10/10/19 04:00 74 10/10/19 03:52 109 74/43 10/10/19 03:45 84 28 74/43 (53) 90 10/10/19 03:30 127 44 72/25 (41) 73 10/10/19 03:15 130 34 81/55 (64) 86 10/10/19 03:06 86 30 100 10/10/19 03:00 81/55 10/10/19 03:00 84 30 82/13 (36) 95 10/10/19 02:45 122 38 64/38 (47) 76 10/10/19 02:43 76/17 10/10/19 02:35 143 25 76/17 (36) 73 10/10/19 02:30 93 28 120/76 (91) 82 10/10/19 02:15 85 30 80/13 (35) 95 10/10/19 02:00 85 22 72/11 (31) 76 10/10/19 02:00 80/13 10/10/19 01:45 98 15 92/37 (55) 75 10/10/19 01:30 86 29 71/19 (36) 94 10/10/19 01:15 82 31 75/11 (32) 95 10/10/19 01:05 92 31 100 10/10/19 01:00 75/11 10/10/19 01:00 99 35 71/27 (42) 70 10/10/19 00:30 89 30 75/24 (41) 91 10/10/19 00:00 98.2 86 10 71/27 (42) 90 10/10/19 00:00 68 10/10/19 00:00 100 10/10/19 00:00 71/20 10/10/19 00:00 Mechanical Ventilator Mechanical Ventilator 10/09/19 23:45 86 18 78/21 (40) 92 10/09/19 23:39 84 84/21 10/09/19 23:30 80 25 84/21 (42) 93 10/09/19 23:15 143 44 74/45 (55) 76 10/09/19 23:00 90 35 85/47 (60) 87 10/09/19 23:00 74/45 10/09/19 22:48 91 30 100 10/09/19 22:45 91 15 85/30 (48) 92 10/09/19 22:30 90 0 87/27 (47) 92 10/09/19 22:15 89 5 82/26 (44) 91 10/09/19 22:03 63/25 10/09/19 22:00 63/25 10/09/19 22:00 88 11 63/25 (38) 91 10/09/19 21:45 87 12 69/21 (37) 92 10/09/19 21:30 80 19 89/24 (45) 90 10/09/19 21:27 100 33 98/24 (48) 62 10/09/19 21:15 100 0 61/29 (40) 74 10/09/19 21:00 61/29 10/09/19 21:00 90 27 86/29 (48) 90 10/09/19 20:45 90 24 89/28 (48) 91 10/09/19 20:42 91 30 100 10/09/19 20:33 91 28 95/13 (40) 91 10/09/19 20:30 90 26 69/56 (60) 91 10/09/19 20:15 89 26 92/18 (42) 90 10/09/19 20:00 98.5 89 24 85/27 (46) 90 10/09/19 20:00 Mechanical Ventilator Mechanical Ventilator 10/09/19 20:00 84 10/09/19 20:00 92/18 10/09/19 20:00 100 10/09/19 19:45 88 25 89/27 (47) 90 10/09/19 19:30 88 22 90/20 (43) 90 10/09/19 19:12 86 30 100 10/09/19 19:00 81 29 96/16 (42) 93 10/09/19 19:00 96/16 10/09/19 18:45 99 0 122/65 (84) 54 10/09/19 18:30 91 29 127/82 (97) 79 10/09/19 18:15 93 32 119/30 (59) 88 10/09/19 18:00 114/39 10/09/19 18:00 88 24 114/39 (64) 89 10/09/19 17:53 89 114/39 10/09/19 17:49 88/41 10/09/19 17:48 88/41 10/09/19 17:30 95 22 116/60 (78) 94 10/09/19 17:16 92 32 100 10/09/19 17:00 95 33 113/24 (53) 90 10/09/19 17:00 113/24 10/09/19 16:30 95 25 121/39 (66) 89 10/09/19 16:00 Mechanical Ventilator Mechanical Ventilator 10/09/19 16:00 98.7 96 28 110/39 (62) 89 10/09/19 16:00 110/39 10/09/19 16:00 96 10/09/19 15:36 95 32 100 10/09/19 15:30 95 32 113/35 (61) 90 10/09/19 15:15 90 31 136/32 (66) 89 10/09/19 15:13 111/31 10/09/19 15:12 111/31 10/09/19 15:00 111/31 10/09/19 15:00 92 31 111/31 (57) 89 10/09/19 14:45 88 33 126/45 (72) 86 10/09/19 14:30 89 32 89/44 (59) 89 10/09/19 14:15 95 32 122/52 (75) 88 10/09/19 14:00 95 38 124/27 (59) 90 10/09/19 14:00 124/27 10/09/19 13:45 95 32 124/24 (57) 88 10/09/19 13:30 95 32 122/31 (61) 89 10/09/19 13:23 96 32 100 10/09/19 13:15 95 30 127/38 (67) 89 10/09/19 13:00 127/38 10/09/19 13:00 95 31 127/38 (67) 89 1/25/20 12:55 100 10/09/19 12:54 96 60/42 10/09/19 12:45 95 31 60/42 (48) 89 10/09/19 12:30 95 29 107/38 (61) 89 10/09/19 12:13 100/39 10/09/19 12:12 100/39 I&O Intake and Output 10/09/19 10/10/19 19:00 07:00 Intake Total 2629.8 ml 2654.3 ml Output Total 205 ml 0 ml Balance 2424.8 ml 2654.3 ml Free Water 30 ml IV Total 2559.8 ml 2654.3 ml Tube Feeding 40 ml Output Urine Total 5 ml 0 ml Stool Total 200 ml # Bowel Movements 3 3 Dressing: other Wound: other Drains: other Cardiovascular: RSR Respiratory: decreased breath sounds Abdomen: soft, other, non-distended Extremities: no cyanosis, other Laboratory Tests Test 10/09/19 15:00 Arterial Blood pH 7.177 (7.350-7.450) Arterial Blood Partial Pressure CO2 49.8 mmHg (35.0-45.0) H Arterial Blood Partial Pressure O2 58.4 mmHg (75.0-100.0) L Arterial Blood HCO3 18.0 mmol/L (22.0-26.0) L Arterial Blood Oxygen Saturation 86.1 % (95-100) *L Arterial Blood Base Excess -10.0 (-2-2) *L Giovanny Test Positive Plan Problems: (1) Sepsis Assessment & Plan: declining desaturation hypotensive on pressors labs reviewed prognosis guarded Pt presented hyperpigmentation sacrum with loose dry/peeling skin. Non -tender when palpated.Scrotum is erythematous. Pt is incontinent of B and B per staff. Condom cath placed on pt by primary nurse. Pt educated on wound prevention and encouraged to frequently turn ,or at least hourly to prevent skin breakdown. No other skin concerns noted. Tx.plan: Apply Moisture Barrier Paste to sacrum. Cover with Optifoam drsg. Change every 3 days and prn. Apply Cavilon Skin Barrier to both heels. Cover each heel with Optifoam drsg. Change every 7 days and prn. Reposition at least every 2hours or as tolerated. Off-load heels with pillow. DAILY ESTIMATED NEEDS: Needs based on Liver, Pulmonary, Critical care 55kg 22-30 kcals/kg 8108-6005 total kcals 1.25-2 g protein/kg 69-110 g total protein 25-30 mL/kg 1606-0935 total fluid mLs NUTRITION DIAGNOSIS: * Swallowing difficulty R/T dysphagia, respiratory status as evidenced by pt on [facility] soft finely chopped texture- was upgraded to Soft easy chew, was mostly on BIPAP, on non-rebreather during meals-> now orally intubated in ICU, non oral feeds. * Decreased sodium and fat needs r/t clinical status, ascites, as evidenced by s/p paracentesis, elev LFT's, elev T bili (INACTIVE) CURRENT TF:Glucerna 1.5 @20ml- held ENTERAL NUTRITION RECOMMENDATIONS: WHEN HD STABLE: Vital AF 1.2 @ 50ml/hr x 24 hrs to provide 1200ml, 1440kcal, 90g prot, 973ml free water * WHEN PT HEMODYNAMICALLY STABLE: -> initiate Vital AF 1.2 @ 10ml/hr x 6 hrs -> advance 10ml q 4-6 hrs as tolerated -> HOB over 30 degrees/ water flush per MD WITHOUT HD STABILTY: consider trophic feeding of Vital AF 1.2 @ 5-10ml/hr if able to raise bed >30 degrees ADDITIONAL RECOMMENDATIONS: 1) Obtain daily standing weight for accuracy or calibrated bedscale wt current bedscale wt 115 bs vs initial bedscale wt 158lbs 2) Monitor HD stability: on NE @ 30mcg-> now @8mcg-> now off LA trending up (4.0) 3) Monitor renal fxn and liver fxn: creat and T bili trend up 4) WC eval for sacral DTPI (2) Shock Assessment & Plan: Pulmonary arterial opacification is somewhat suboptimal, and small peripheral emboli could be missed. In addition, there is some image degradation due to motion artifact which also precludes exclusion of small peripheral emboli. No gross large vessel pulmonary emboli are demonstrated. The left main pulmonary artery is ectatic, measuring up to 2.5 cm. No isolated right ventricular dilatation. There is generalized four-chamber cardiomegaly. No evidence of thoracic aortic aneurysm or dissection. Normal caliber and branching anatomy of the right neck vessels is noted. There is extensive pulmonary parenchymal disease. There is extensive groundglass opacity involving most of the upper lobes. There is extensive interstitial septal thickening involving the lower lobes, as well as considerable atelectasis and confluent opacity. There is of bronchiectasis, subpleural blebs, and bilateral peripheral honeycombing are also present. There are bilateral small pleural effusions. The extent of the pulmonary parenchymal disease at the lung bases is greater than that which was visualized on abdomen CT scan of 08/23/2019 There is considerable edema of the mediastinal and epicardial fat, but no definite pericardial effusion is demonstrated. No mediastinal or hilar mass or adenopathy. Grossly unremarkable esophagus. The visualized thyroid is unremarkable. No axillary or chest wall mass or adenopathy. There is mild height loss of the T8 vertebral body. It is slightly sclerotic, demonstrates considerable superior and inferior endplate irregularity. There is degenerative spondylosis elsewhere in the thoracic spine. Included upper abdominal anatomy demonstrates atrophic liver with surface nodularity. There is a TIPS shunt in place which is probably patent. There is hypertrophy of the hepatic arteries. Gallstones are noted. There is considerable ascites fluid present. What are probably embolic coils are seen in the region of the splenic capsule. Impression: Somewhat suboptimal pulmonary arterial opacification as well as limitation of exam by motion artifact. Small peripheral emboli not completely excludable. No gross large vessel central pulmonary emboli demonstrated. Mildly dilated left main pulmonary artery, suggestive of but not diagnostic for pulmonary arterial hypertension Cardiomegaly Evidence of anasarca, with diffuse body wall and mediastinal edema, small bilateral pleural effusions, ascites Extensive pulmonary parenchymal disease, as described, with groundglass opacity, interstitial septal thickening, bronchiectasis, subpleural blebs, and peripheral honeycombing. Given the finding of cardiomegaly and anasarca, findings most likely on the basis of pulmonary edema. Pneumonia is also a possibility. In addition, there is probably underlying component of chronic fibrotic change. T8 vertebral body loss of height. This may reflect age-indeterminate compression fracture deformity versus degenerative remodeling. Consider MRI for better characterization if clinically relevant Evidence of hepatic cirrhosis. Evidence of portal hypertension, with a TIPS shunt in place, and ascites. This is been previously described Cholelithiasis Perisplenic embolic coils. Degenerative spondylosis (3) Cirrhosis Assessment & Plan: There is an orogastric tube in place, tip projected at the level of the fundus body junction, proximal port well distal to the expected level of the gastric esophageal junction. There is a TIPS shunt present. Bowel gas pattern is unremarkable. Vascular embolic coils are seen in the left upper quadrant. There is mild lumbar scoliotic deformity and considerable degenerative lumbar spondylosis * Significant interval reduction of ascites status post paracentesis. * Cirrhosis with indwelling patent TIPS shunt. Elevated velocities in the distal aspect of the TIPS shunt > 200 cm/s suggesting a degree of possible in-stent stenosis, especially given recurrent ascites. Correlation with prior ultrasound is essential to assess for interval change in velocities. Patient may benefit from interventional tip study with portal pressure measurements and possible TIPS angioplasty, especially if there is a significant elevation in velocities in the shunt upon comparison with baseline study. * Cholelithiasis. No radiographic evidence to suggest acute cholecystitis. Sonographic Ponce sign reported as negative. (4) Respiratory failure, acute Michael Merrill Oct 10, 2019 12:05
[2019-10-10 12:11] LABS: HEMOGLOBIN 7.9 G/DL (14.2-18.0); MEAN CORPUSCULAR VOLUME 98 FL (80-99); RED BLOOD COUNT 2.44 M/UL (4.70-6.10); RED CELL DISTRIBUTION WIDTH 17.6 % (11.6-14.8)
[2019-10-10 12:17] LABS: PLATELET COUNT 3 K/UL (150-450); WHITE BLOOD COUNT 25.5 K/UL (4.8-10.8)
[2019-10-10 12:35] LABS: ALANINE AMINOTRANSFERASE 109 U/L (12-78); ALBUMIN/GLOBULIN RATIO 0.4 (1.0-2.7); ALKALINE PHOSPHATASE 129 U/L (46-116); ANION GAP 15 mmol/L (5-15); ASPARTATE AMINO TRANSFERASE 491 U/L (15-37); BILIRUBIN,TOTAL 3.6 MG/DL (0.2-1.0); BLOOD UREA NITROGEN 137 mg/dL (7-18); CARBON DIOXIDE 13 MMOL/L (21-32); CHLORIDE 100 MMOL/L (98-107); CREATININE 3.4 MG/DL (0.55-1.30); POTASSIUM 4.6 MMOL/L (3.5-5.1); SODIUM 128 MMOL/L (136-145)
[2019-10-10 12:37] LABS: CALCIUM 5.9 MG/DL (8.5-10.1)
[2019-10-10 12:40] LABS: BILIRUBIN,DIRECT 2.7 MG/DL (0.0-0.3)
--- NOTE | 2019-10-10 12:45 | NUR ---
NURSE NOTES: Dr Leavitt made aware of Calcium 5.9, PLT level 3, WBC 25.5. Dr Swanson also made aware of those levels. New orders placed via telephone order from Dr. Leavitt for 2 units PLT transfusion and ionized calcium draw. Orders read back and verified. Lab notified and states platelets will take [address] Leavitt and Sky both aware that pt has no family to sign consent and pt indicated for emergency transfusion. Lab states consent is already obtained 10/01/19 and that it is valid for one month.
--- NOTE | 2019-10-10 12:50 | Infectious Diseases Prog Note ---
Assessment/Plan Assessment/Plan IMPRESSION: 1. MRSA & KPC pneumonia, 2. Klebsiella UTI 3. Cirrhosis with ascites. 4. MRSA colonization. 5. Anemia. 6. Thrombocytopenia. 7. Tachycardia 8. Hypercapnic respiratory failure. 9. Leukocytosis, improving 10 Staph aureus, MRSA sepsis 11. acute renal failure 12. septic shock 13. Lactic acidosis 14. Thrombocytopenia 15 GI bleeding 16. Shock RECOMMENDATIONS: Continue Vancomycin & IV Polymyxin B Poor prognosis Patient has no family needs platelet transfusion DNR status Case was D/W RN Subjective ROS Limited/Unobtainable: Yes Constitutional: Reports: fever, other - Hskg=477.6 Cardiovascular: Reports: other - on vasopressor Gastrointestinal/Abdominal: Reports: blood in stool Allergies: Coded Allergies: PENICILLINS (Verified Allergy, Intermediate, Rash, 09/01/19) Patient stated at this time Objective Vital Signs Last 24 Hour Vital Signs Date Time Temp Pulse Resp B/P (MAP) Pulse Ox O2 Delivery O2 Flow Rate FiO2 10/10/19 12:04 70 10/10/19 12:03 10/10/19 12:00 100 10/10/19 12:00 99.1 68 0 (39) 92 10/10/19 12:00 64/10/10/19 12:00 75 10/10/19 12:00 Mechanical Ventilator Mechanical Ventilator Mechanical Ventilator 10/10/19 11:04 76 30 100 10/10/19 11:00 76 30 70/35 (47) 96 10/10/19 11:00 70/35 10/10/19 10:33 76 9 54/22 (33) 95 10/10/19 10:30 76 7 32/22 (25) 94 10/10/19 10:15 77 14 94/45 (61) 93 10/10/19 10:00 78 24 33/14 (20) 93 10/10/19 10:00 33/14 10/10/19 09:30 78 26 79/58 (65) 93 10/10/19 09:00 75 8 62/22 (35) 95 10/10/19 09:00 62/22 10/10/19 08:55 74 30 100 10/10/19 08:32 98.3 10/10/19 08:30 98.3 78 28 172/140 (151) 89 10/10/19 08:01 77 113/56 10/10/19 08:00 100 10/10/19 08:00 150/26 10/10/19 08:00 Mechanical Ventilator Mechanical Ventilator Mechanical Ventilator 10/10/19 08:00 101.6 79 29 150/126 (134) 87 10/10/19 08:00 79 10/10/19 07:25 77 30 100 10/10/19 07:00 94 34 113/56 (75) 75 10/10/19 06:53 122/41 10/10/19 06:00 122 33 70/18 (35) 78 10/10/19 06:00 74/36 10/10/19 05:45 137 38 84/42 (56) 78 10/10/19 05:36 118 36 62/26 (38) 76 10/10/19 05:30 128 28 42/30 (34) 79 10/10/19 05:15 113 26 79/40 (53) 81 10/10/19 05:00 74/36 10/10/19 05:00 138 37 74/36 (49) 88 10/10/19 04:55 109 30 100 10/10/19 04:45 122 37 71 10/10/19 04:30 86 30 78/13 (34) 97 10/10/19 04:15 81 20 72/18 (36) 68 10/10/19 04:00 100 10/10/19 04:00 72/18 10/10/19 04:00 Mechanical Ventilator Mechanical Ventilator 10/10/19 04:00 98.9 84 32 59/35 (43) 86 10/10/19 04:00 74 10/10/19 03:52 109 74/43 10/10/19 03:45 84 28 74/43 (53) 90 10/10/19 03:30 127 44 72/25 (41) 73 10/10/19 03:15 130 34 81/55 (64) 86 10/10/19 03:06 86 30 100 10/10/19 03:00 81/55 10/10/19 03:00 84 30 82/13 (36) 95 10/10/19 02:45 122 38 64/38 (47) 76 10/10/19 02:43 76/17 10/10/19 02:35 143 25 76/17 (36) 73 10/10/19 02:30 93 28 120/76 (91) 82 10/10/19 02:15 85 30 80/13 (35) 95 10/10/19 02:00 85 22 72/11 (31) 76 10/10/19 02:00 80/13 10/10/19 01:45 98 15 92/37 (55) 75 10/10/19 01:30 86 29 71/19 (36) 94 10/10/19 01:15 82 31 75/11 (32) 95 10/10/19 01:05 92 31 100 10/10/19 01:00 75/11 10/10/19 01:00 99 35 71/27 (42) 70 10/10/19 00:30 89 30 75/24 (41) 91 10/10/19 00:00 98.2 86 10 71/27 (42) 90 10/10/19 00:00 68 10/10/19 00:00 100 10/10/19 00:00 71/20 10/10/19 00:00 Mechanical Ventilator Mechanical Ventilator 10/09/19 23:45 86 18 78/21 (40) 92 10/09/19 23:39 84 84/21 10/09/19 23:30 80 25 84/21 (42) 93 10/09/19 23:15 143 44 74/45 (55) 76 10/09/19 23:00 90 35 85/47 (60) 87 10/09/19 23:00 74/45 10/09/19 22:48 91 30 100 10/09/19 22:45 91 15 85/30 (48) 92 10/09/19 22:30 90 0 87/27 (47) 92 10/09/19 22:15 89 5 82/26 (44) 91 10/09/19 22:03 63/25 10/09/19 22:00 63/25 10/09/19 22:00 88 11 63/25 (38) 91 10/09/19 21:45 87 12 69/21 (37) 92 10/09/19 21:30 80 19 89/24 (45) 90 10/09/19 21:27 100 33 98/24 (48) 62 10/09/19 21:15 100 0 61/29 (40) 74 10/09/19 21:00 61/29 10/09/19 21:00 90 27 86/29 (48) 90 10/09/19 20:45 90 24 89/28 (48) 91 10/09/19 20:42 91 30 100 10/09/19 20:33 91 28 95/13 (40) 91 10/09/19 20:30 90 26 69/56 (60) 91 10/09/19 20:15 89 26 92/18 (42) 90 10/09/19 20:00 98.5 89 24 85/27 (46) 90 10/09/19 20:00 Mechanical Ventilator Mechanical Ventilator 10/09/19 20:00 84 10/09/19 20:00 92/18 10/09/19 20:00 100 10/09/19 19:45 88 25 89/27 (47) 90 10/09/19 19:30 88 22 90/20 (43) 90 10/09/19 19:12 86 30 100 10/09/19 19:00 81 29 96/16 (42) 93 10/09/19 19:00 96/16 10/09/19 18:45 99 0 122/65 (84) 54 10/09/19 18:30 91 29 127/82 (97) 79 10/09/19 18:15 93 32 119/30 (59) 88 10/09/19 18:00 114/39 10/09/19 18:00 88 24 114/39 (64) 89 10/09/19 17:53 89 114/39 10/09/19 17:49 88/41 10/09/19 17:48 88/41 10/09/19 17:30 95 22 116/60 (78) 94 10/09/19 17:16 92 32 100 10/09/19 17:00 95 33 113/24 (53) 90 10/09/19 17:00 113/24 10/09/19 16:30 95 25 121/39 (66) 89 10/09/19 16:00 Mechanical Ventilator Mechanical Ventilator 10/09/19 16:00 98.7 96 28 110/39 (62) 89 10/09/19 16:00 110/39 10/09/19 16:00 96 10/09/19 15:36 95 32 100 10/09/19 15:30 95 32 113/35 (61) 90 10/09/19 15:15 90 31 136/32 (66) 89 10/09/19 15:13 111/31 10/09/19 15:12 111/31 10/09/19 15:00 111/31 10/09/19 15:00 92 31 111/31 (57) 89 10/09/19 14:45 88 33 126/45 (72) 86 10/09/19 14:30 89 32 89/44 (59) 89 10/09/19 14:15 95 32 122/52 (75) 88 10/09/19 14:00 95 38 124/27 (59) 90 10/09/19 14:00 124/27 10/09/19 13:45 95 32 124/24 (57) 88 10/09/19 13:30 95 32 122/31 (61) 89 10/09/19 13:23 96 32 100 10/09/19 13:15 95 30 127/38 (67) 89 10/09/19 13:00 127/38 10/09/19 13:00 95 31 127/38 (67) 89 10/09/19 12:55 100 10/09/19 12:54 96 60/42 10/09/19 12:45 95 31 60/42 (48) 89 Height (Feet): 5 Height (Inches): 8.00 Weight (Pounds): 125 HEENT: other Respiratory/Chest: decreased breath sounds, other - on ventilator Cardiovascular: normal rate, other - R arm PICC line Abdomen: other - ascites, umbilical hernia, rectal tube, moron color diarrhea Extremities: other - arm edema Neurologic/Psychiatric: unresponsiveness, other - comatose Laboratory Tests Test 10/09/19 15:00 10/10/19 11:50 Arterial Blood pH 7.177 (7.350-7.450) Arterial Blood Partial Pressure CO2 49.8 mmHg (35.0-45.0) H Arterial Blood Partial Pressure O2 58.4 mmHg (75.0-100.0) L Arterial Blood HCO3 18.0 mmol/L (22.0-26.0) L Arterial Blood Oxygen Saturation 86.1 % (95-100) *L Arterial Blood Base Excess -10.0 (-2-2) *L Giovanny Test Positive White Blood Count 25.5 K/UL (4.8-10.8) *H Red Blood Count 2.44 M/UL (4.70-6.10) L Hemoglobin 7.9 G/DL (14.2-18.0) L Hematocrit 24.0 % (42.0-52.0) L Mean Corpuscular Volume 98 FL (80-99) Mean Corpuscular Hemoglobin 32.3 PG (27.0-31.0) H Mean Corpuscular Hemoglobin Concent 32.9 G/DL (32.0-36.0) Red Cell Distribution Width 17.6 % (11.6-14.8) H Platelet Count 3 K/UL (150-450) #*L Mean Platelet Volume FL (6.5-10.1) Neutrophils (%) (Auto) % (45.0-75.0) Lymphocytes (%) (Auto) % (20.0-45.0) Monocytes (%) (Auto) % (1.0-10.0) Eosinophils (%) (Auto) % (0.0-3.0) Basophils (%) (Auto) % (0.0-2.0) Differential Total Cells Counted 100 Neutrophils % (Manual) 74 % (45-75) Lymphocytes % (Manual) 9 % (20-45) L Monocytes % (Manual) 7 % (1-10) Eosinophils % (Manual) 0 % (0-3) Basophils % (Manual) 0 % (0-2) Band Neutrophils 10 % (0-8) H Platelet Estimate Decreased L Platelet Morphology Normal Hypochromasia 1+ Anisocytosis 1+ Macrocytosis 1+ Sodium Level 128 MMOL/L (136-145) L Potassium Level 4.6 MMOL/L (3.5-5.1) Chloride Level 100 MMOL/L (98-107) Carbon Dioxide Level 13 MMOL/L (21-32) L Anion Gap 15 mmol/L (5-15) Blood Urea Nitrogen 137 mg/dL (7-18) H Creatinine 3.4 MG/DL (0.55-1.30) H Estimat Glomerular Filtration Rate 18.6 mL/min (>60) Glucose Level 371 MG/DL (74-106) H Calcium Level 5.9 MG/DL (8.5-10.1) *L Total Bilirubin 3.6 MG/DL (0.2-1.0) H Direct Bilirubin 2.7 MG/DL (0.0-0.3) H Aspartate Amino Transf (AST/SGOT) 491 U/L (15-37) H Alanine Aminotransferase (ALT/SGPT) 109 U/L (12-78) H Alkaline Phosphatase 129 U/L (46-116) H Total Protein 3.6 G/DL (6.4-8.2) L Albumin 1.0 G/DL (3.4-5.0) L Globulin 2.6 g/dL Albumin/Globulin Ratio 0.4 (1.0-2.7) L Random Vancomycin Level 17.1 ug/mL Current Medications Medications (Trade) Dose Ordered Sig/Akash Route PRN Reason Start Time Stop Time Status Last Admin Dose Admin Acetaminophen (Tylenol) 650 mg Q6H PRN NG FEVER 09/30/19 10:30 10/30/19 10:29 10/10/19 08:02 Amiodarone HCl (Cordarone) 200 mg EVERY 12 HOURS GT 10/05/19 09:00 11/04/19 08:59 10/10/19 08:02 Chlorhexidine Gluconate (Tammy-Hex 2%) 1 applic DAILY@2000 TOPIC 10/04/19 20:00 11/03/19 19:59 10/09/19 20:27 Dextrose/Sodium Chloride 1,000 ml @ 75 mls/hr [id number] IV 10/02/19 08:15 11/01/19 08:14 10/10/19 02:49 Diphenhydramine HCl (Benadryl) 25 mg Q6H PRN ORAL Itching 09/28/19 13:25 10/28/19 13:24 09/29/19 10:09 Hydrocortisone (Solu-CORTEF) 30 mg DAILY IV 10/07/19 09:00 11/06/19 08:59 10/10/19 08:02 Lansoprazole (Prevacid) 30 mg ACBREAKFAST NG 10/09/19 06:30 11/08/19 06:29 10/09/19 06:13 Lidocaine HCl (Xylocaine Viscous) 15 ml Q4H PRN ORAL For Pain 10/06/19 08:00 11/05/19 07:59 Lorazepam (Ativan 2mg/ml 1ml) 1 mg Q1H PRN IV For SEIZURE 10/09/19 11:30 10/16/19 11:29 10/10/19 02:47 Metoclopramide HCl (Reglan) 5 mg Q6H PRN ORAL Nausea & Vomiting 10/06/19 07:00 11/05/19 06:59 10/06/19 10:47 Multivitamins (Multivitamins) 1 tab DAILY ORAL 09/29/19 09:00 10/22/19 08:59 10/10/19 08:02 Nicotine (Nicoderm) 1 patch Q24H TDERMAL 09/29/19 01:00 10/29/19 00:59 10/10/19 01:29 Norepinephrine Bitartrate 8 mg/ Dextrose 508 ml @ 0 mls/hr Q24H IV 10/09/19 17:00 11/08/19 16:59 10/10/19 12:03 Phenylephrine HCl 50 mg/Dextrose 250 ml @ 0 mls/hr Q24H IV 10/09/19 11:30 11/08/19 11:29 10/10/19 12:04 Polymyxin B Sulfate 249291 units/Dextrose 275 ml @ 275 mls/hr EVERY 12 HOURS IV 10/07/19 10:00 10/14/19 09:59 10/10/19 09:45 Sodium Chloride 500 ml @ 999 mls/hr Q31M PRN IV SBP <95 10/03/19 21:15 11/02/19 21:14 10/10/19 03:53 Thiamine HCl (Vitamin B1) 100 mg DAILY ORAL 09/29/19 09:00 10/22/19 08:59 10/10/19 08:02 Vancomycin HCl (Vanco rx to dose) 1 ea DAILY PRN MISC Per rx protocol 10/02/19 10:30 11/01/19 10:29 Vancomycin HCl 750 mg/Sodium Chloride 275 ml @ 183.333 mls/hr ONCE ONCE IVPB 10/10/19 18:00 10/10/19 19:29 Jamie Swanson MD Oct 10, 2019 12:50
--- NOTE | 2019-10-10 14:30 | NUR ---
NURSE NOTES: Dr Cook at bedside assessing pt and states he would like ABGs drawn immediately after 2 units of PLT transfusion is complete. Additionally, he would like pt to be started on vasoactive dose of IV Vasopressin 0.04 units/min if pt's BP does not respond to PLT transfusion.
[2019-10-10] MEDS: Phenylephrine 100 MG in D5W 500ml 490 ML IV SCH ×3 (14:46→23:21)
--- NOTE | 2019-10-10 15:21 | NUR ---
NURSE NOTES: Dr Cook made aware of Na level (128), no new orders received for sodium replacement. Dr Cook states he would like D5NS to be held during PLT transfusion and reduced to 50cc/hr afterwards. Addendum: 10/10/19 at 1527 by Breann Spaulding RN Late entry: Dr Cook also asked to d/c PRN NS bolus order for SBP<95.
--- NOTE | 2019-10-10 16:00 | NUR ---
NURSE NOTES: oral care provided. No notable bleeding from oral cavity or seizure activity at this time. Will continue to monitor.
--- NOTE | 2019-10-10 16:44 | Pulmonolgy Critical Care Note ---
Critical Care - Asmt/Plan Assessment/Plan: Pulmonary CCM Progress Note Assessment/Plan Impression - MRSA/GN Pneumonia - Persistent leucocytosis - Hypoxic respiratory Failure - worsening - Worsening JAMAL - minimal urine output - Now DNAR, very poor prognosis - CHFpEF - Atrial Fibrillation - Cirrhosis, h/o ETOH Use, ascites s/p Paracentesis - Homeless - Enterobacter UTI s/p rx - Thrombocytopenia - Anasarca - tachycardia - overwhelming sepsis +++ positive cultures - worsening pulmonary infiltrates PLAN still on high fio2-/PEEP - adjust adjust vent ABG PRN TF PRN Limit IVF given anuria currently unstable and extremely critical remains critically ill pressors PRN impression, plan, and exam edited and reviewed in detail care discussed with RN note Bioethics meeting pending to address issue of futility Subjective ROS Limited/Unobtainable: Yes Allergies: Coded Allergies: PENICILLINS (Verified Allergy, Intermediate, Rash, 09/01/19) Patient stated at this time Subjective care noted on vent on full vent support/ cxr worse O2 at 60% P10 Objective Vital Signs Noted Objective WDWN, OGT, ETT NAD reduced breath sounds bilaterally without rhonchi or wheeze [id number] without MRG NABS nontender no HSM some distention no CC some edema sedated Critical Care - Objective Last 24 Hour Vital Signs Date Time Temp Pulse Resp B/P (MAP) Pulse Ox O2 Delivery O2 Flow Rate FiO2 10/10/19 16:18 66 75/28 10/10/19 15:00 72 28 74/29 (44) 98 10/10/19 15:00 74/29 10/10/19 14:48 73 30 100 10/10/19 14:30 73 30 75/28 (44) 98 10/10/19 14:00 73 30 75/26 (42) 97 10/10/19 14:00 75/26 10/10/19 13:30 74 30 75/28 (44) 97 10/10/19 13:00 75/29 10/10/19 13:00 75 30 75/29 (44) 97 10/10/19 12:49 75 30 100 10/10/19 12:30 75 5 74/29 (44) 97 10/10/19 12:04 70 64/10/10/19 12:03 64/10/10/19 12:00 100 10/10/19 12:00 99.1 68 30 64/26 (39) 92 10/10/19 12:00 64/26 10/10/19 12:00 75 10/10/19 12:00 Mechanical Ventilator Mechanical Ventilator Mechanical Ventilator 10/10/19 11:04 76 30 100 10/10/19 11:00 76 30 70/35 (47) 96 10/10/19 11:00 70/35 10/10/19 10:33 76 9 54/22 (33) 95 10/10/19 10:30 76 7 32/22 (25) 94 10/10/19 10:15 77 14 94/45 (61) 93 10/10/19 10:00 78 24 33/14 (20) 93 10/10/19 10:00 33/14 10/10/19 09:30 78 26 79/58 (65) 93 10/10/19 09:00 75 8 62/22 (35) 95 10/10/19 09:00 62/22 10/10/19 08:55 74 30 100 10/10/19 08:32 98.3 10/10/19 08:30 98.3 78 28 172/140 (151) 89 10/10/19 08:01 77 113/56 10/10/19 08:00 100 10/10/19 08:00 150/26 10/10/19 08:00 Mechanical Ventilator Mechanical Ventilator Mechanical Ventilator 10/10/19 08:00 101.6 79 29 150/126 (134) 87 10/10/19 08:00 79 10/10/19 07:25 77 30 100 10/10/19 07:00 94 34 113/56 (75) 75 10/10/19 06:53 122/41 10/10/19 06:00 122 33 70/18 (35) 78 10/10/19 06:00 74/36 10/10/19 05:45 137 38 84/42 (56) 78 10/10/19 05:36 118 36 62/26 (38) 76 10/10/19 05:30 128 28 42/30 (34) 79 10/10/19 05:15 113 26 79/40 (53) 81 10/10/19 05:00 74/36 10/10/19 05:00 138 37 74/36 (49) 88 1/26/20 04:55 109 30 100 10/10/19 04:45 122 37 71 10/10/19 04:30 86 30 78/13 (34) 97 10/10/19 04:15 81 20 72/18 (36) 68 10/10/19 04:00 100 10/10/19 04:00 72/18 10/10/19 04:00 Mechanical Ventilator Mechanical Ventilator 10/10/19 04:00 98.9 84 32 59/35 (43) 86 10/10/19 04:00 74 10/10/19 03:52 109 74/43 10/10/19 03:45 84 28 74/43 (53) 90 10/10/19 03:30 127 44 72/25 (41) 73 10/10/19 03:15 130 34 81/55 (64) 86 10/10/19 03:06 86 30 100 10/10/19 03:00 81/55 10/10/19 03:00 84 30 82/13 (36) 95 10/10/19 02:45 122 38 64/38 (47) 76 10/10/19 02:43 76/17 10/10/19 02:35 143 25 76/17 (36) 73 10/10/19 02:30 93 28 120/76 (91) 82 10/10/19 02:15 85 30 80/13 (35) 95 10/10/19 02:00 85 22 72/11 (31) 76 10/10/19 02:00 80/13 10/10/19 01:45 98 15 92/37 (55) 75 10/10/19 01:30 86 29 71/19 (36) 94 10/10/19 01:15 82 31 75/11 (32) 95 10/10/19 01:05 92 31 100 10/10/19 01:00 75/11 10/10/19 01:00 99 35 71/27 (42) 70 10/10/19 00:30 89 30 75/24 (41) 91 10/10/19 00:00 98.2 86 10 71/27 (42) 90 10/10/19 00:00 68 10/10/19 00:00 100 10/10/19 00:00 71/20 10/10/19 00:00 Mechanical Ventilator Mechanical Ventilator 10/09/19 23:45 86 18 78/21 (40) 92 10/09/19 23:39 84 84/21 10/09/19 23:30 80 25 84/21 (42) 93 10/09/19 23:15 143 44 74/45 (55) 76 10/09/19 23:00 90 35 85/47 (60) 87 10/09/19 23:00 74/45 10/09/19 22:48 91 30 100 10/09/19 22:45 91 15 85/30 (48) 92 10/09/19 22:30 90 0 87/27 (47) 92 10/09/19 22:15 89 5 82/26 (44) 91 10/09/19 22:03 63/25 10/09/19 22:00 63/25 10/09/19 22:00 88 11 63/25 (38) 91 10/09/19 21:45 87 12 69/21 (37) 92 10/09/19 21:30 80 19 89/24 (45) 90 10/09/19 21:27 100 33 98/24 (48) 62 10/09/19 21:15 100 0 61/29 (40) 74 10/09/19 21:00 61/29 10/09/19 21:00 90 27 86/29 (48) 90 10/09/19 20:45 90 24 89/28 (48) 91 10/09/19 20:42 91 30 100 10/09/19 20:33 91 28 95/13 (40) 91 10/09/19 20:30 90 26 69/56 (60) 91 10/09/19 20:15 89 26 92/18 (42) 90 10/09/19 20:00 98.5 89 24 85/27 (46) 90 10/09/19 20:00 Mechanical Ventilator Mechanical Ventilator 10/09/19 20:00 84 10/09/19 20:00 92/18 10/09/19 20:00 100 10/09/19 19:45 88 25 89/27 (47) 90 10/09/19 19:30 88 22 90/20 (43) 90 10/09/19 19:12 86 30 100 10/09/19 19:00 81 29 96/16 (42) 93 10/09/19 19:00 96/16 10/09/19 18:45 99 0 122/65 (84) 54 1/25/20 18:30 91 29 127/82 (97) 79 10/09/19 18:15 93 32 119/30 (59) 88 10/09/19 18:00 114/39 10/09/19 18:00 88 24 114/39 (64) 89 10/09/19 17:53 89 114/39 10/09/19 17:49 88/41 10/09/19 17:48 88/41 10/09/19 17:30 95 22 116/60 (78) 94 10/09/19 17:16 92 32 100 10/09/19 17:00 95 33 113/24 (53) 90 10/09/19 17:00 113/24 Critical Care - Subjective ROS Limited/Unobtainable: No FI02: 100 Vent Support Breath Rate: 30 Vent Support Mode: AC Vent Tidal Volume: 550 Sputum Amount: Small PEEP: 8.0 PIP: 40 Tube Feeding Amount: 20 I&O: Intake and Output 10/09/19 10/10/19 19:00 07:00 Intake Total 2629.8 ml 2654.3 ml Output Total 205 ml 0 ml Balance 2424.8 ml 2654.3 ml Free Water 30 ml IV Total 2559.8 ml 2654.3 ml Tube Feeding 40 ml Output Urine Total 5 ml 0 ml Stool Total 200 ml # Bowel Movements 3 3 ET-Tube: 7.5 ET Position: 24 Ar Cook MD Oct 10, 2019 16:44
--- NOTE | 2019-10-10 16:57 | NUR ---
NURSE NOTES: Dr Leavitt contacted regarding ionized calcium level fo 1. New orders placed for 2 grams IVP calcium gluconate once. Telephone order read back and verified. Addendum: 10/10/19 at 1710 by Breann Spaulding RN of*
[2019-10-10] MEDS ORDERED: Calcium Gluconate 1gm/10ml vial IVP SCH (17:00)
[2019-10-10] MEDS ORDERED: Vancomycin 750mg/NS 275ml IVPB ONE ×2 (18:00)
--- NOTE | 2019-10-10 18:38 | NUR ---
NURSE NOTES: 1 unit PLT transfusion verified with Adam Boyle, REINALDO and initiated. VS as follows: T 97.3 F ax BP 76/29 HR 66 spO2 100% RR 30. Pt in no acute distress. Will recheck VS at 1853.
--- NOTE | 2019-10-10 18:48 | NUR ---
NURSE NOTES: No signs of PLT transfusion rxn noted. VS as follows: Temp 97.4 F ax BP 75/28 HR 65 spO2 100% RR 30. PLT transfusion flow rate now 150 cc/hr. Addendum: 10/10/19 at 1900 by Breann Spaulding RN Amendment: infusion rate at 300 cc/hr. (Per Ursula from blood bank, PLT must be transfused within no more than 1 hour and bag volume is 307).
--- NOTE | 2019-10-10 19:05 | NUR ---
RESPIRATORY NOTE: Received pt on AC 30, 550VT, 100%, PEEP +8. Pt is intubated w/ ETT 7.5 @ 24cm lipline, secured by anchorfast. Pt flat effect/obtunded. B/S td. rhonchi/diminished, sxn small amounts of thick/thin, bloody secretions. No hand restraints as pt unable to move arms. Vent plugged into red outlet, ambubag at bedside. Pt in no apparent distress at this time. Will continue to monitor pt.
--- NOTE | 2019-10-10 19:40 | NUR ---
HAND-OFF: Report given to Daniel. PLT transfusion completed now. VS as follows: 97.3 F ax HR 64 BP 74/30 spO2 100% RR 30. No transfusion rxn or distress noted. Daniel made aware of new orders placed by Dr. Cook under most recent "other nursing orders."
--- NOTE | 2019-10-10 19:55 | NUR ---
NURSE NOTES: LE: PATIENT OBTUNDED, ON ETT TO VENT, AC30/TV550/FIO2 100%/PEEP8, O2 SATURATION 100%, HEART RATE 60'S/MIN SINUS RHYTHM, OGT INTACT AND PATENT, KEPT HOB 30 DEGREES, HELD FEEDING STATUS, ABDOMEN SOFT, NON TENDER, NOTED UMBILICAL HERNIA, RECTAL TUBE INTACT AND PATENT, DARK BLOODY COLOR LIQUID STOOL OUTED, F/C INTACT AND PATENT, OLIGURIA SHAYNA COLOR URINE OUTED, PICC LINE TO RIGHT UPPER ARM, INTACT AND PATENT, ONGOING LEVOPHED 30MCG/MIN, PHENYLEPHRINE 240MCG/MIN VIA PICC LINE, WEEPING BOTH ARMS, KEPT SZ AND ASPIRATION PRECAUTION, ON P200 BED, ON BED ALARM AND LOCKED, MADE LOWER BED POSITION, WILL CONTINUE TO MONITOR. NO SIDE REACTION NOTED AFTER TRANSFUSION. Addendum: 10/10/19 at 2055 by LAQUITA BEARD RN NURSE NOTES: LE: PATIENT OBTUNDED, ON ETT TO VENT, AC30/TV550/FIO2 100%/PEEP8, O2 SATURATION 100%, HEART RATE 60'S/MIN SINUS RHYTHM, OGT INTACT AND PATENT, KEPT HOB 30 DEGREES, HELD FEEDING STATUS, ABDOMEN SOFT, NON TENDER, NOTED UMBILICAL HERNIA, RECTAL TUBE INTACT AND PATENT, DARK GREENISH COLOR LIQUID STOOL OUTED, F/C INTACT AND PATENT, OLIGURIA SHAYNA COLOR URINE OUTED, PICC LINE TO RIGHT UPPER ARM, INTACT AND PATENT, ONGOING LEVOPHED 30MCG/MIN, PHENYLEPHRINE 240MCG/MIN VIA PICC LINE, WEEPING BOTH ARMS, KEPT SZ AND ASPIRATION PRECAUTION, ON P200 BED, ON BED ALARM AND LOCKED, MADE LOWER BED POSITION, WILL CONTINUE TO MONITOR.
[2019-10-10] MEDS: Dyna-Hex 2% Top Sol 2oz TOPIC SCH (20:02)
--- NOTE | 2019-10-10 22:26 | NUR ---
NURSE NOTES: PATIENT NO RESPONSE TO VERBALLY AND TACTILE STIMULI, ANURIC STATUS, WILL CONTINUE TO MONITOR.
--- NOTE | 2019-10-10 22:31 | NUR ---
NURSE NOTES: CALLED BLOOD BANK REGARDING PLATELETPHERESIS THAT HAVE NOT YET, WILL CALL BACK.
--- NOTE | 2019-10-10 23:15 | NUR ---
NURSE NOTES: STARTED 1 UNIT PLATELETPHERESIS ([id number]) VIA PICC LINE, WILL CONTINUE TO MONITOR.
[2019-10-11] VITALS (60 sets, daily range): BP systolic 61–90; BP diastolic 12–42
--- NOTE | 2019-10-11 | NUR ---
NURSE NOTES: LE: FINISHED TRANSFUSION, NO SIDE REACTION NOTED.
[2019-10-11] MEDS ORDERED: Vasopressin 100 UNITS in NS 95 ML IV SCH (00:45)
[2019-10-11] MEDS: Vasopressin 100 UNITS in NS 95 ML IV SCH (01:14)
[2019-10-11] MEDS ORDERED: Sodium Bicarbonate 50ml Carp IV SCH (01:30)
--- NOTE | 2019-10-11 01:30 | NUR ---
NURSE NOTES: STARTED VASOPRESSIN 0.04UNITS/MIN VIA PICC LINE ORDER DUE TO LOWER BP AT 0114AM. CALLED DR. GUAJARDO REGARDING ABG'S RESULT THAT RECEIVED NEW ORDER AND CARRIED OUT.
--- NOTE | 2019-10-11 01:41 | NUR ---
NURSE NOTES: GIVEN 1 AMP SODIUM BICARBONATE 50ML VIA PICC LINE ORDER.
[2019-10-11] MEDS: Norepinephrine Bitartrate 8 MG in D5W 500ml 500 ML IV SCH ×5 (02:00→20:38)
--- NOTE | 2019-10-11 02:30 | NUR ---
NURSE NOTES: ON SCD'S TO BOTH LOWER LEGS. BP 73/34MMHG, HEART RATE 70'S/MIN SINUS RHYTHM, O2 SATURATION 100% NOTED.
--- NOTE | 2019-10-11 03:15 | Progress Note ---
DATE: 10/09/2019 CARDIOLOGY PROGRESS NOTE SUBJECTIVE: Remains now on pressors due to persistent hypotension. Remaining orally intubated and mechanically ventilated. PHYSICAL EXAMINATION: VITAL SIGNS: Blood pressure as low as 57 systolic. GENERAL: Poorly responsive. LUNGS: Bilateral breath sounds. CARDIAC: Regular rhythm and rate. Normal S1 and S2. ABDOMEN: Soft. EXTREMITIES: Trace edema. IMPRESSION: 1. Multiorgan system failure. 2. Sepsis with shock. 3. Severe hypoxia due to underlying lung disease. 4. Anemia. PLAN: 1. Ventilator support. 2. Pressors as needed. 3. Volume support. 4. Antimicrobials. 5. DVT prophylaxis. Ar Gomez M.D. DR: ABBI JOB#: [id number] CC:
--- NOTE | 2019-10-11 03:30 | Progress Note ---
DATE: 10/10/2019 SUBJECTIVE: The patient is doing poorly. He remains hypotensive. He is on maximal pressors. Orally intubated. He required transfusions yesterday a packed red blood cells and platelets. OBJECTIVE: VITAL SIGNS: Blood pressure in the range of 30 to 90 systolic, heart rate 70s, respiratory rate 30, and afebrile. LUNGS: Bilateral rhonchi. CARDIAC: Regular rhythm and rate. Normal S1, S2. ABDOMEN: Soft. EXTREMITIES: 1+ dependent edema. LABORATORY DATA: Reviewed, notable for white count 25, hemoglobin 7.9. Ionized calcium of 1. IMPRESSION: 1. Multiorgan system failure. 2. Profound shock due to sepsis. 3. Critical and grave. PLAN: 1. DNR is appropriate due to severity of medical condition. 2. Continue pressors. 3. Antimicrobials. 4. Ventilator support and volume resuscitation. 5. DVT and stress ulcer prophylaxes. 6. There were no other interventions presently feasible. Ar Gomez M.D. DR: BETHANY JOB#: [id number] CC:
--- NOTE | 2019-10-11 04:47 | NUR ---
NURSE NOTES: MORNING CARE AND ORAL CARE WAS DONE, NO RESPONSE TO STIMULI.
--- NOTE | 2019-10-11 06:33 | NUR ---
NURSE NOTES: PATIENT NO RESPONSE, NO ACUTE DISTRESS NOTED AT THIS SHIFT.
[2019-10-11] MEDS: Phenylephrine 100 MG in D5W 500ml 490 ML IV SCH ×3 (06:47→21:03)
--- NOTE | 2019-10-11 07:00 | NUR ---
RESPIRATORY NOTES: Received Patient on Vent settings ACVC 550, RR 30, FIO2 100%, PEEP +8. Patient is intubated with 7.5 ETT at 24cm at the lip, secured with anchorfast. Suctioned small amount of thin clear/vergara secretions through ETT and a small amount of clear secretions in mouth Q2 and PRN. Patient lying in bed obtundent. Alarms are on and audible. Will continue to monitor patient throughout the day.
--- NOTE | 2019-10-11 07:10 | NUR ---
HAND-OFF: Report given to REINALDO ROMAN.
--- NOTE | 2019-10-11 07:11 | NUR ---
NURSE NOTES: Pt received from REINALDO Sanchez. Pt is comatose, does not respond to name, shaking, or pain. Pupils are equal and round, 4 mm bilaterally with no light rxn, yellowing of bilateral sclera noted. Pt is in SR to damage adjuster with HR 70-80 bpm. Radial and dorsalis pedis pulses noted weak 1+ bilaterally. Cap refill 6 sec. 1+ pitting edema noted to bilateral upper extremities. 2+ pitting edema noted to right hand and 3+ noted to left hand. Pt is intubated with 7.5 ETT 24 cm at right lip. settings noted AC 30 TV 550 FiO2 100% Peep 8. Right upper lung lobe diminished with fine crackles, left upper lung lobe is CTA, and bilateral lower lobes are diminished with fine crackles upon auscultation. Pt has an OGT clamped at this time with 300 cc residuals noted. No bleeding noted from oral cavity. Bowel sounds noted hypoactive on all abd quadrants. abd is round, firm, with notable hernia. Rectal tube noted draining brown/black liquid stool. F/C noted draining minimal amount of isabel urine. Skin alterations and ecchymosis noted. Serous fluid noted weeping from upper extremities and scrotum. The scrotum is edematous. Pt has a ALVINO PICC running levophed at 30 mcg/min, neosynepherine at 240 mcg/min, vasopressin at 0.04 units/min, and D5NS at 50 cc/hr. Bed in lowest position, alarm on, side rails up x 2 and padded per seizure precaution. Call light within reach. SCDs on bilateral lower extremities. Pt on helga hugger with Temp 97.9 F ax. Helga hugger turned off at this time. Will continue to monitor.
--- NOTE | 2019-10-11 08:03 | General Progress Note ---
Assessment/Plan Problem List: (1) AMS (altered mental status) ICD Codes: R41.82 - Altered mental status, unspecified SNOMED: 499958526 (2) Sepsis ICD Codes: A41.9 - Sepsis, unspecified organism SNOMED: 70383555 (3) Shock ICD Codes: R57.9 - Shock, unspecified SNOMED: 97964204 (4) Cirrhosis ICD Codes: K74.60 - Unspecified cirrhosis of liver SNOMED: 55283531 (5) Hypoxia ICD Codes: R09.02 - Hypoxemia SNOMED: 590159515 (6) Respiratory failure, acute ICD Codes: J96.00 - Acute respiratory failure, unspecified whether with hypoxia or hypercapnia SNOMED: 21852593 Qualifiers: Qualified Codes: J96.01 - Acute respiratory failure with hypoxia Status: stable Assessment/Plan: vent support pressors as needed ivf stress dose steroids- weaning iv abx per id transfuse prbc and plts tube feeds as tolerated critical and guarded poor prognosis. pt has multiple organ system failure cpr would be futile and inappropriate in this pt with multiorgan system failure dnr ordered Subjective ROS Limited/Unobtainable: Yes Constitutional: Reports: malaise, weakness HEENT: Reports: no symptoms Cardiovascular: Reports: no symptoms Respiratory: Reports: shortness of breath Gastrointestinal/Abdominal: Reports: no symptoms Genitourinary: Reports: no symptoms Neurologic/Psychiatric: Reports: pre-existing deficit, seizure Endocrine: Reports: no symptoms Hematologic/Lymphatic: Reports: anemia Allergies: Coded Allergies: PENICILLINS (Verified Allergy, Intermediate, Rash, 09/01/19) Patient stated at this time All Systems: reviewed and negative except above Subjective no events. maxed out 3 pressors. no szs noted. no bleeding. Objective Last 24 Hour Vital Signs Date Time Temp Pulse Resp B/P (MAP) Pulse Ox O2 Delivery O2 Flow Rate FiO2 10/11/19 07:28 78 30 100 10/11/19 07:00 77 0 82/34 (50) 100 10/11/19 07:00 82/34 10/11/19 06:56 83/34 10/11/19 06:47 74 85/36 10/11/19 06:30 69 30 85/36 (52) 100 10/11/19 06:00 87/34 10/11/19 06:00 66 30 87/34 (51) 100 1/27/20 05:03 66 30 100 10/11/19 05:00 87/36 10/11/19 05:00 66 30 87/36 (53) 100 10/11/19 04:30 66 30 90/38 (55) 100 10/11/19 04:21 65 10/11/19 04:00 97.3 66 30 88/37 (54) 100 10/11/19 04:00 Mechanical Ventilator Mechanical Ventilator Mechanical Ventilator 10/11/19 04:00 100 10/11/19 04:00 88/37 10/11/19 03:30 79 30 86/39 (55) 100 10/11/19 03:00 83/40 10/11/19 03:00 78 29 83/40 (54) 100 10/11/19 02:58 76 30 100 10/11/19 02:30 74 30 82/39 (53) 100 10/11/19 02:15 81 30 73/34 (47) 100 10/11/19 02:00 63 30 78/41 (53) 100 10/11/19 02:00 82/37 10/11/19 01:45 61 30 82/37 (52) 100 10/11/19 01:30 61 30 78/31 (47) 100 10/11/19 01:15 61 30 72/29 (43) 100 10/11/19 01:06 61 30 100 10/11/19 01:00 61 30 74/27 (43) 100 10/11/19 01:00 74/27 10/11/19 00:45 61 29 73/30 (44) 100 10/11/19 00:30 61 14 75/30 (45) 100 10/11/19 00:15 62 24 67/12 (30) 100 10/11/19 00:00 100 10/11/19 00:00 74/30 10/11/19 00:00 Mechanical Ventilator Mechanical Ventilator Mechanical Ventilator 10/11/19 00:00 97.3 62 30 74/30 (45) 100 10/10/19 23:45 62 30 74/28 (43) 100 10/10/19 23:30 62 30 73/29 (44) 100 10/10/19 23:29 62 10/10/19 23:21 62 75/25 1/26/20 23:20 63 30 100 10/10/19 23:15 63 27 75/25 (42) 100 10/10/19 23:12 63 30 73/28 (43) 100 10/10/19 23:00 63 30 74/28 (43) 100 10/10/19 23:00 74/28 10/10/19 22:30 63 30 74/28 (43) 100 10/10/19 22:00 73/28 10/10/19 22:00 62 30 73/28 (43) 100 10/10/19 21:40 70/25 10/10/19 21:30 63 30 70/25 (40) 100 10/10/19 21:17 63 30 100 10/10/19 21:00 63 30 71/27 (42) 100 10/10/19 21:00 71/27 10/10/19 20:30 64 30 71/25 (40) 100 10/10/19 20:00 100 10/10/19 20:00 74/28 10/10/19 20:00 97.3 64 30 74/28 (43) 100 10/10/19 20:00 Mechanical Ventilator Mechanical Ventilator Mechanical Ventilator 10/10/19 19:39 64 29 74/30 (45) 100 10/10/19 19:30 65 30 74/28 (43) 100 10/10/19 19:03 65 30 100 10/10/19 19:00 65 10/10/19 19:00 65 30 75/27 (43) 100 10/10/19 19:00 75/27 10/10/19 18:30 66 30 76/29 (45) 100 10/10/19 18:00 66 17 75/33 (47) 99 10/10/19 18:00 75/33 10/10/19 17:30 67 30 75/28 (44) 99 10/10/19 17:00 78/28 10/10/19 17:00 67 30 77/29 (45) 99 10/10/19 16:55 68 30 100 10/10/19 16:30 68 30 78/28 (45) 98 10/10/19 16:18 66 75/28 10/10/19 16:00 75/28 10/10/19 16:00 66 10/10/19 16:00 Mechanical Ventilator Mechanical Ventilator Mechanical Ventilator 10/10/19 16:00 100 10/10/19 16:00 97.5 69 30 75/28 (44) 98 10/10/19 15:30 70 30 73/28 (43) 98 10/10/19 15:00 72 28 74/29 (44) 98 10/10/19 15:00 74/29 10/10/19 14:48 73 30 100 10/10/19 14:30 73 30 75/28 (44) 98 10/10/19 14:00 73 30 75/26 (42) 97 10/10/19 14:00 75/26 10/10/19 13:30 74 30 75/28 (44) 97 10/10/19 13:00 75/29 10/10/19 13:00 75 30 75/29 (44) 97 10/10/19 12:49 75 30 100 10/10/19 12:30 75 5 74/29 (44) 97 10/10/19 12:04 70 64/26 10/10/19 12:03 64/26 10/10/19 12:00 100 10/10/19 12:00 99.1 68 30 64/ (39) 92 10/10/19 12:00 64/26 10/10/19 12:00 75 10/10/19 12:00 Mechanical Ventilator Mechanical Ventilator Mechanical Ventilator 10/10/19 11:04 76 30 100 10/10/19 11:00 76 30 70/35 (47) 96 10/10/19 11:00 70/35 10/10/19 10:33 76 9 54/22 (33) 95 10/10/19 10:30 76 7 32/22 (25) 94 10/10/19 10:15 77 14 94/45 (61) 93 10/10/19 10:00 78 24 33/14 (20) 93 10/10/19 10:00 33/14 10/10/19 09:30 78 26 79/58 (65) 93 10/10/19 09:00 75 8 62/22 (35) 95 10/10/19 09:00 62/22 10/10/19 08:55 74 30 100 10/10/19 08:32 98.3 10/10/19 08:30 98.3 78 28 172/140 (151) 89 Intake and Output 10/10/19 10/11/19 19:00 07:00 Intake Total 3850.216 ml 3491.4 ml Output Total 55 ml 73 ml Balance 3795.216 ml 3418.4 ml IV Total 3850.216 ml 2984.4 ml Blood Product 507 ml Output Urine Total 5 ml 23 ml Stool Total 50 ml 50 ml # Bowel Movements 3 Laboratory Tests 10/10/19 11:50: White Blood Count 25.5*H, Red Blood Count 2.44L, Hemoglobin 7.9L, Hematocrit 24.0L, Mean Corpuscular Volume 98, Mean Corpuscular Hemoglobin 32.3H, Mean Corpuscular Hemoglobin Concent 32.9, Red Cell Distribution Width 17.6H, Platelet Count 3#*L, Mean Platelet Volume , Neutrophils (%) (Auto) , Lymphocytes (%) (Auto) , Monocytes (%) (Auto) , Eosinophils (%) (Auto) , Basophils (%) (Auto) , Differential Total Cells Counted 100, Neutrophils % ( Manual) 74, Lymphocytes % (Manual) 9L, Monocytes % (Manual) 7, Eosinophils % ( Manual) 0, Basophils % (Manual) 0, Band Neutrophils 10H, Platelet Estimate DecreasedL, Platelet Morphology Normal, Hypochromasia 1+, Anisocytosis 1+, Macrocytosis 1+, Sodium Level 128L, Potassium Level 4.6, Chloride Level 100, Carbon Dioxide Level 13L, Anion Gap 15, Blood Urea Nitrogen 137H, Creatinine 3.4H, Estimat Glomerular Filtration Rate 18.6, Glucose Level 371H, Calcium Level 5.9*L, Total Bilirubin 3.6H, Direct Bilirubin 2.7H, Aspartate Amino Transf (AST/SGOT) 491H, Alanine Aminotransferase (ALT/SGPT) 109H, Alkaline Phosphatase 129H, Total Protein 3.6L, Albumin 1.0L, Globulin 2.6, Albumin/ Globulin Ratio 0.4L, Random Vancomycin Level 17.1 10/10/19 13:01: Ionized Calcium (Measured) 1.00L 10/11/19 00:54: Arterial Blood pH 6.968*L, Arterial Blood Partial Pressure CO2 35.1, Arterial Blood Partial Pressure O2 131.5H, Arterial Blood HCO3 7.9*L, Arterial Blood Oxygen Saturation 97.7, Arterial Blood Base Excess -22.6*L, Giovanny Test Height (Feet): 5 Height (Inches): 8.00 Weight (Pounds): 137 Objective General Appearance: WD/WN, lethargic. orally intubated. +twitching Neck: supple Cardiovascular: regular rhythm Respiratory/Chest: lungs td rhonchi Abdomen: normal bowel sounds, non tender. small reducible periumbilical hernia Edema: no edema noted Arm (L), no edema noted Arm (R), no edema noted Leg (L), no edema noted Leg (R), no edema noted Pedal (L), no edema noted Pedal (R), no edema noted Generalized Henry Leavitt MD Oct 11, 2019 08:03
--- NOTE | 2019-10-11 08:09 | NUR ---
SENIOR ABAP DEVELOPER PROGRESS NOTE HANH received a referral for end of life discussion on 10/09/2019. HANH reviewed the chart. Per nursing note on 10/10/2019, Dr. Leavitt discussed end of life w/ pt's decision makers, Romana and Oniel Mayorga [phone] and changed the code status to DNR. HANH will F/U as needed. Signed: 10/11/19 at 0810 by REENA SCHAFER <Co-Signature Required>
--- NOTE | 2019-10-11 08:30 | NUR ---
NURSE NOTES: Left message for Dr Leavitt regarding gastric residuals of 300cc and let him know prevacid was held by warehouse shift supervisor nurse. Awaiting call back.
--- NOTE | 2019-10-11 08:35 | Pulmonology Progress Note ---
Assessment/Plan Assessment/Plan Impression - MRSA Pneumonia - Persistent leucocytosis - Hypoxic respiratory Failure /ARDS likely - CHFpEF - Atrial Fibrillation - Cirrhosis, h/o ETOH Use, ascites s/p Paracentesis - Homeless - Enterobacter UTI s/p rx - Thrombocytopenia - Anasarca - tachycardia - overwhelming sepsis +++ positive cultures - MOF PLAN doing poorly no chance of survival agree with DNR terminal care at present, no further intervention per pulmonary impression, plan, and exam edited and reviewed in detail care discussed with RN Subjective ROS Limited/Unobtainable: Yes Allergies: Coded Allergies: PENICILLINS (Verified Allergy, Intermediate, Rash, 09/01/19) Patient stated at this time Subjective care noted on vent doing poorly agree with DNR MOF Objective Last 24 Hour Vital Signs Date Time Temp Pulse Resp B/P (MAP) Pulse Ox O2 Delivery O2 Flow Rate FiO2 10/11/19 08:00 97.9 77 30 83/36 (52) 100 10/11/19 08:00 77 30 83/36 (52) 100 10/11/19 08:00 100 10/11/19 07:30 78 30 84/35 (51) 100 10/11/19 07:28 78 30 100 10/11/19 07:00 77 0 82/34 (50) 100 10/11/19 07:00 82/34 10/11/19 06:56 83/34 10/11/19 06:47 74 85/36 10/11/19 06:30 69 30 85/36 (52) 100 10/11/19 06:00 87/34 10/11/19 06:00 66 30 87/34 (51) 100 10/11/19 05:03 66 30 100 10/11/19 05:00 87/36 10/11/19 05:00 66 30 87/36 (53) 100 10/11/19 04:30 66 30 90/38 (55) 100 10/11/19 04:21 65 10/11/19 04:00 97.3 66 30 88/37 (54) 100 10/11/19 04:00 Mechanical Ventilator Mechanical Ventilator Mechanical Ventilator 10/11/19 04:00 100 10/11/19 04:00 88/37 10/11/19 03:30 79 30 86/39 (55) 100 10/11/19 03:00 83/40 10/11/19 03:00 78 29 83/40 (54) 100 10/11/19 02:58 76 30 100 10/11/19 02:30 74 30 82/39 (53) 100 10/11/19 02:15 81 30 73/34 (47) 100 10/11/19 02:00 63 30 78/41 (53) 100 10/11/19 02:00 82/37 10/11/19 01:45 61 30 82/37 (52) 100 10/11/19 01:30 61 30 78/31 (47) 100 10/11/19 01:15 61 30 72/29 (43) 100 10/11/19 01:06 61 30 100 10/11/19 01:00 61 30 74/27 (43) 100 10/11/19 01:00 74/27 10/11/19 00:45 61 29 73/30 (44) 100 10/11/19 00:30 61 14 75/30 (45) 100 10/11/19 00:15 62 24 67/12 (30) 100 10/11/19 00:00 100 10/11/19 00:00 74/30 10/11/19 00:00 Mechanical Ventilator Mechanical Ventilator Mechanical Ventilator 10/11/19 00:00 97.3 62 30 74/30 (45) 100 10/10/19 23:45 62 30 74/28 (43) 100 10/10/19 23:30 62 30 73/29 (44) 100 10/10/19 23:29 62 10/10/19 23:21 62 75/25 10/10/19 23:20 63 30 100 10/10/19 23:15 63 27 75/25 (42) 100 10/10/19 23:12 63 30 73/28 (43) 100 10/10/19 23:00 63 30 74/28 (43) 100 10/10/19 23:00 74/28 10/10/19 22:30 63 30 74/28 (43) 100 10/10/19 22:00 73/28 10/10/19 22:00 62 30 73/28 (43) 100 10/10/19 21:40 70/25 10/10/19 21:30 63 30 70/25 (40) 100 10/10/19 21:17 63 30 100 1/26/20 21:00 63 30 71/27 (42) 100 10/10/19 21:00 71/27 10/10/19 20:30 64 30 71/25 (40) 100 10/10/19 20:00 100 10/10/19 20:00 74/28 10/10/19 20:00 97.3 64 30 74/28 (43) 100 10/10/19 20:00 Mechanical Ventilator Mechanical Ventilator Mechanical Ventilator 10/10/19 19:39 64 29 74/30 (45) 100 10/10/19 19:30 65 30 74/28 (43) 100 10/10/19 19:03 65 30 100 10/10/19 19:00 65 10/10/19 19:00 65 30 75/27 (43) 100 10/10/19 19:00 75/27 10/10/19 18:30 66 30 76/29 (45) 100 10/10/19 18:00 66 17 75/33 (47) 99 10/10/19 18:00 75/33 10/10/19 17:30 67 30 75/28 (44) 99 10/10/19 17:00 78/28 10/10/19 17:00 67 30 77/29 (45) 99 10/10/19 16:55 68 30 100 10/10/19 16:30 68 30 78/28 (45) 98 10/10/19 16:18 66 75/28 10/10/19 16:00 75/28 10/10/19 16:00 66 10/10/19 16:00 Mechanical Ventilator Mechanical Ventilator Mechanical Ventilator 10/10/19 16:00 100 10/10/19 16:00 97.5 69 30 75/28 (44) 98 10/10/19 15:30 70 30 73/28 (43) 98 10/10/19 15:00 72 28 74/29 (44) 98 10/10/19 15:00 74/29 10/10/19 14:48 73 30 100 10/10/19 14:30 73 30 75/28 (44) 98 10/10/19 14:00 73 30 75/26 (42) 97 10/10/19 14:00 75/26 10/10/19 13:30 74 30 75/28 (44) 97 10/10/19 13:00 75/29 10/10/19 13:00 75 30 75/29 (44) 97 10/10/19 12:49 75 30 100 10/10/19 12:30 75 5 74/29 (44) 97 10/10/19 12:04 70 64/26 10/10/19 12:03 64/26 10/10/19 12:00 100 10/10/19 12:00 99.1 68 30 64/ (39) 92 10/10/19 12:00 64/10/10/19 12:00 75 10/10/19 12:00 Mechanical Ventilator Mechanical Ventilator Mechanical Ventilator 10/10/19 11:04 76 30 100 10/10/19 11:00 76 30 70/35 (47) 96 10/10/19 11:00 70/35 10/10/19 10:33 76 9 54/22 (33) 95 10/10/19 10:30 76 7 32/22 (25) 94 10/10/19 10:15 77 14 94/45 (61) 93 10/10/19 10:00 78 24 33/14 (20) 93 10/10/19 10:00 33/14 10/10/19 09:30 78 26 79/58 (65) 93 10/10/19 09:00 75 8 62/22 (35) 95 10/10/19 09:00 62/22 10/10/19 08:55 74 30 100 Intake and Output 10/10/19 10/11/19 19:00 07:00 Intake Total 3850.216 ml 3491.4 ml Output Total 55 ml 73 ml Balance 3795.216 ml 3418.4 ml IV Total 3850.216 ml 2984.4 ml Blood Product 507 ml Output Urine Total 5 ml 23 ml Stool Total 50 ml 50 ml # Bowel Movements 3 Objective WDWN in distress coarse breath sounds bilaterally without rhonchi or wheeze [id number] without MRG NABS nontender no HSM some distention no CC noted edema nonfocal sedated on vent Laboratory Tests 10/10/19 11:50: White Blood Count 25.5*H, Red Blood Count 2.44L, Hemoglobin 7.9L, Hematocrit 24.0L, Mean Corpuscular Volume 98, Mean Corpuscular Hemoglobin 32.3H, Mean Corpuscular Hemoglobin Concent 32.9, Red Cell Distribution Width 17.6H, Platelet Count 3#*L, Mean Platelet Volume , Neutrophils (%) (Auto) , Lymphocytes (%) (Auto) , Monocytes (%) (Auto) , Eosinophils (%) (Auto) , Basophils (%) (Auto) , Differential Total Cells Counted 100, Neutrophils % ( Manual) 74, Lymphocytes % (Manual) 9L, Monocytes % (Manual) 7, Eosinophils % ( Manual) 0, Basophils % (Manual) 0, Band Neutrophils 10H, Platelet Estimate DecreasedL, Platelet Morphology Normal, Hypochromasia 1+, Anisocytosis 1+, Macrocytosis 1+, Sodium Level 128L, Potassium Level 4.6, Chloride Level 100, Carbon Dioxide Level 13L, Anion Gap 15, Blood Urea Nitrogen 137H, Creatinine 3.4H, Estimat Glomerular Filtration Rate 18.6, Glucose Level 371H, Calcium Level 5.9*L, Total Bilirubin 3.6H, Direct Bilirubin 2.7H, Aspartate Amino Transf (AST/SGOT) 491H, Alanine Aminotransferase (ALT/SGPT) 109H, Alkaline Phosphatase 129H, Total Protein 3.6L, Albumin 1.0L, Globulin 2.6, Albumin/ Globulin Ratio 0.4L, Random Vancomycin Level 17.1 10/10/19 13:01: Ionized Calcium (Measured) 1.00L 10/11/19 00:54: Arterial Blood pH 6.968*L, Arterial Blood Partial Pressure CO2 35.1, Arterial Blood Partial Pressure O2 131.5H, Arterial Blood HCO3 7.9*L, Arterial Blood Oxygen Saturation 97.7, Arterial Blood Base Excess -22.6*L, Giovanny Test Current Medications Medications (Trade) Dose Ordered Sig/Akash Route PRN Reason Start Time Stop Time Status Last Admin Dose Admin Acetaminophen (Tylenol) 650 mg Q6H PRN NG FEVER 09/30/19 10:30 10/30/19 10:29 10/10/19 08:02 Amiodarone HCl (Cordarone) 200 mg EVERY 12 HOURS GT 10/05/19 09:00 11/04/19 08:59 10/10/19 08:02 Chlorhexidine Gluconate (Tammy-Hex 2%) 1 applic DAILY@2000 TOPIC 10/04/19 20:00 11/03/19 19:59 10/10/19 20:02 Dextrose/Sodium Chloride 1,000 ml @ 50 mls/hr Q20H IV 10/10/19 21:00 11/01/19 08:14 10/10/19 20:57 Diphenhydramine HCl (Benadryl) 25 mg Q6H PRN ORAL Itching 09/28/19 13:25 10/28/19 13:24 09/29/19 10:09 Hydrocortisone (Solu-CORTEF) 30 mg DAILY IV 10/07/19 09:00 11/06/19 08:59 10/10/19 08:02 Lansoprazole (Prevacid) 30 mg ACBREAKFAST NG 10/09/19 06:30 11/08/19 06:29 10/09/19 06:13 Lidocaine HCl (Xylocaine Viscous) 15 ml Q4H PRN ORAL For Pain 10/06/19 08:00 11/05/19 07:59 Lorazepam (Ativan 2mg/ml 1ml) 1 mg Q1H PRN IV For SEIZURE 10/09/19 11:30 10/16/19 11:29 10/10/19 02:47 Metoclopramide HCl (Reglan) 5 mg Q6H PRN ORAL Nausea & Vomiting 10/06/19 07:00 11/05/19 06:59 10/06/19 10:47 Multivitamins (Multivitamins) 1 tab DAILY ORAL 09/29/19 09:00 10/22/19 08:59 10/10/19 08:02 Nicotine (Nicoderm) 1 patch Q24H TDERMAL 09/29/19 01:00 10/29/19 00:59 10/10/19 01:29 Norepinephrine Bitartrate 8 mg/ Dextrose 508 ml @ 0 mls/hr Q24H IV 10/09/19 17:00 11/08/19 16:59 10/11/19 06:56 Phenylephrine HCl 100 mg/Dextrose 500 ml @ 0 mls/hr Q24H IV 10/10/19 15:00 11/09/19 14:59 10/11/19 06:47 Polymyxin B Sulfate 816862 units/Dextrose 275 ml @ 275 mls/hr EVERY 12 HOURS IV 10/07/19 10:00 10/14/19 09:59 10/10/19 20:59 Thiamine HCl (Vitamin B1) 100 mg DAILY ORAL 09/29/19 09:00 10/22/19 08:59 10/10/19 08:02 Vancomycin HCl (Vanco rx to dose) 1 ea DAILY PRN MISC Per rx protocol 10/02/19 10:30 11/01/19 10:29 Vasopressin 100 units/Sodium Chloride 100 ml @ 0 mls/hr Q24H IV 10/11/19 01:30 11/10/19 01:29 10/11/19 01:14 Simon Lopez MD Oct 11, 2019 08:35
[2019-10-11] MEDS: Thiamine 100mg tab ORAL SCH (09:07)
[2019-10-11] MEDS: Polymyxin B Sulfate 250,000 UNITS in D5W 275 ML IV SCH ×2 (09:07→20:38)
[2019-10-11] MEDS: Hydrocortisone 100mg Inj IV SCH (09:07)
[2019-10-11] MEDS: Amiodarone 200mg tab GT SCH ×2 (09:07→20:39)
--- NOTE | 2019-10-11 09:45 | NUR ---
NURSE NOTES: Blake Larson who states he is pt's friend and former coworker came to visit pt today. According to Mr Larson, pt has a who lived separately from pt for the past 10 years and that he may be able to locate her but does not have her contact information at this time. Mr Larson can be reached at [phone]. Social service consult placed to locate family.
--- NOTE | 2019-10-11 09:56 | Infectious Diseases Prog Note ---
Assessment/Plan Assessment/Plan IMPRESSION: 1. MRSA & KPC pneumonia, 2. Klebsiella UTI 3. Cirrhosis with ascites. 4. MRSA colonization. 5. Anemia. 6. Thrombocytopenia. 7. Tachycardia 8. Hypercapnic respiratory failure. 9. Leukocytosis, improving 10 Staph aureus, MRSA sepsis 11. acute renal failure 12. septic shock 13. Lactic acidosis 14. Thrombocytopenia 15 GI bleeding 16. Shock 17. Hypocalcemia RECOMMENDATIONS: Continue Vancomycin & IV Polymyxin B Poor prognosis DNR status Case was D/W RN Subjective ROS Limited/Unobtainable: Yes Constitutional: Denies: fever Cardiovascular: Reports: other - hypotensive on pressors Allergies: Coded Allergies: PENICILLINS (Verified Allergy, Intermediate, Rash, 09/01/19) Patient stated at this time Objective Vital Signs Last 24 Hour Vital Signs Date Time Temp Pulse Resp B/P (MAP) Pulse Ox O2 Delivery O2 Flow Rate FiO2 10/11/19 09:29 72 30 100 10/11/19 08:00 97.9 77 30 83/36 (52) 100 10/11/19 08:00 77 30 83/36 (52) 100 10/11/19 08:00 100 10/11/19 07:30 78 30 84/35 (51) 100 10/11/19 07:28 78 30 100 10/11/19 07:00 77 0 82/34 (50) 100 10/11/19 07:00 82/34 10/11/19 06:56 83/34 10/11/19 06:47 74 85/36 10/11/19 06:30 69 30 85/36 (52) 100 10/11/19 06:00 87/34 10/11/19 06:00 66 30 87/34 (51) 100 10/11/19 05:03 66 30 100 10/11/19 05:00 87/36 10/11/19 05:00 66 30 87/36 (53) 100 10/11/19 04:30 66 30 90/38 (55) 100 10/11/19 04:21 65 10/11/19 04:00 97.3 66 30 88/37 (54) 100 10/11/19 04:00 Mechanical Ventilator Mechanical Ventilator Mechanical Ventilator 10/11/19 04:00 100 10/11/19 04:00 88/37 10/11/19 03:30 79 30 86/39 (55) 100 10/11/19 03:00 83/40 10/11/19 03:00 78 29 83/40 (54) 100 10/11/19 02:58 76 30 100 10/11/19 02:30 74 30 82/39 (53) 100 10/11/19 02:15 81 30 73/34 (47) 100 10/11/19 02:00 63 30 78/41 (53) 100 10/11/19 02:00 82/37 10/11/19 01:45 61 30 82/37 (52) 100 10/11/19 01:30 61 30 78/31 (47) 100 10/11/19 01:15 61 30 72/29 (43) 100 10/11/19 01:06 61 30 100 10/11/19 01:00 61 30 74/27 (43) 100 10/11/19 01:00 74/27 10/11/19 00:45 61 29 73/30 (44) 100 10/11/19 00:30 61 14 75/30 (45) 100 10/11/19 00:15 62 24 67/12 (30) 100 10/11/19 00:00 100 10/11/19 00:00 74/30 10/11/19 00:00 Mechanical Ventilator Mechanical Ventilator Mechanical Ventilator 10/11/19 00:00 97.3 62 30 74/30 (45) 100 10/10/19 23:45 62 30 74/28 (43) 100 10/10/19 23:30 62 30 73/29 (44) 100 10/10/19 23:29 62 10/10/19 23:21 62 75/25 10/10/19 23:20 63 30 100 10/10/19 23:15 63 27 75/25 (42) 100 10/10/19 23:12 63 30 73/28 (43) 100 10/10/19 23:00 63 30 74/28 (43) 100 10/10/19 23:00 74/28 10/10/19 22:30 63 30 74/28 (43) 100 10/10/19 22:00 73/28 10/10/19 22:00 62 30 73/28 (43) 100 10/10/19 21:40 70/25 10/10/19 21:30 63 30 70/25 (40) 100 10/10/19 21:17 63 30 100 10/10/19 21:00 63 30 71/27 (42) 100 10/10/19 21:00 71/27 10/10/19 20:30 64 30 71/25 (40) 100 10/10/19 20:00 100 10/10/19 20:00 74/28 10/10/19 20:00 97.3 64 30 74/28 (43) 100 10/10/19 20:00 Mechanical Ventilator Mechanical Ventilator Mechanical Ventilator 10/10/19 19:39 64 29 74/30 (45) 100 10/10/19 19:30 65 30 74/28 (43) 100 10/10/19 19:03 65 30 100 10/10/19 19:00 65 10/10/19 19:00 65 30 75/27 (43) 100 10/10/19 19:00 75/27 10/10/19 18:30 66 30 76/29 (45) 100 10/10/19 18:00 66 17 75/33 (47) 99 10/10/19 18:00 75/33 10/10/19 17:30 67 30 75/28 (44) 99 10/10/19 17:00 78/28 10/10/19 17:00 67 30 77/29 (45) 99 10/10/19 16:55 68 30 100 10/10/19 16:30 68 30 78/28 (45) 98 10/10/19 16:18 66 75/28 10/10/19 16:00 75/28 10/10/19 16:00 66 10/10/19 16:00 Mechanical Ventilator Mechanical Ventilator Mechanical Ventilator 10/10/19 16:00 100 10/10/19 16:00 97.5 69 30 75/28 (44) 98 10/10/19 15:30 70 30 73/28 (43) 98 10/10/19 15:00 72 28 74/29 (44) 98 10/10/19 15:00 74/29 10/10/19 14:48 73 30 100 10/10/19 14:30 73 30 75/28 (44) 98 10/10/19 14:00 73 30 75/26 (42) 97 10/10/19 14:00 75/26 10/10/19 13:30 74 30 75/28 (44) 97 10/10/19 13:00 75/29 10/10/19 13:00 75 30 75/29 (44) 97 10/10/19 12:49 75 30 100 10/10/19 12:30 75 5 74/29 (44) 97 10/10/19 12:04 70 64/10/10/19 12:03 64/10/10/19 12:00 100 10/10/19 12:00 99.1 68 30 (39) 92 10/10/19 12:00 64/10/10/19 12:00 75 10/10/19 12:00 Mechanical Ventilator Mechanical Ventilator Mechanical Ventilator 10/10/19 11:04 76 30 100 10/10/19 11:00 76 30 70/35 (47) 96 10/10/19 11:00 70/35 10/10/19 10:33 76 9 54/22 (33) 95 10/10/19 10:30 76 7 32/22 (25) 94 10/10/19 10:15 77 14 94/45 (61) 93 10/10/19 10:00 78 24 33/14 (20) 93 10/10/19 10:00 33/14 Height (Feet): 5 Height (Inches): 8.00 Weight (Pounds): 137 HEENT: mucous membranes moist, other - orally intuated Respiratory/Chest: lungs clear, other - on ventilator Cardiovascular: normal rate, other - R arm PICC line Abdomen: other - orogastric tube, umbilical hernia, rectal tube Extremities: other - arm edema Skin: other - bruises Neurologic/Psychiatric: unresponsiveness Laboratory Tests Test 10/10/19 11:50 10/10/19 13:01 10/11/19 00:54 White Blood Count 25.5 K/UL (4.8-10.8) *H Red Blood Count 2.44 M/UL (4.70-6.10) L Hemoglobin 7.9 G/DL (14.2-18.0) L Hematocrit 24.0 % (42.0-52.0) L Mean Corpuscular Volume 98 FL (80-99) Mean Corpuscular Hemoglobin 32.3 PG (27.0-31.0) H Mean Corpuscular Hemoglobin Concent 32.9 G/DL (32.0-36.0) Red Cell Distribution Width 17.6 % (11.6-14.8) H Platelet Count 3 K/UL (150-450) #*L Mean Platelet Volume FL (6.5-10.1) Neutrophils (%) (Auto) % (45.0-75.0) Lymphocytes (%) (Auto) % (20.0-45.0) Monocytes (%) (Auto) % (1.0-10.0) Eosinophils (%) (Auto) % (0.0-3.0) Basophils (%) (Auto) % (0.0-2.0) Differential Total Cells Counted 100 Neutrophils % (Manual) 74 % (45-75) Lymphocytes % (Manual) 9 % (20-45) L Monocytes % (Manual) 7 % (1-10) Eosinophils % (Manual) 0 % (0-3) Basophils % (Manual) 0 % (0-2) Band Neutrophils 10 % (0-8) H Platelet Estimate Decreased L Platelet Morphology Normal Hypochromasia 1+ Anisocytosis 1+ Macrocytosis 1+ Sodium Level 128 MMOL/L (136-145) L Potassium Level 4.6 MMOL/L (3.5-5.1) Chloride Level 100 MMOL/L (98-107) Carbon Dioxide Level 13 MMOL/L (21-32) L Anion Gap 15 mmol/L (5-15) Blood Urea Nitrogen 137 mg/dL (7-18) H Creatinine 3.4 MG/DL (0.55-1.30) H Estimat Glomerular Filtration Rate 18.6 mL/min (>60) Glucose Level 371 MG/DL (74-106) H Calcium Level 5.9 MG/DL (8.5-10.1) *L Total Bilirubin 3.6 MG/DL (0.2-1.0) H Direct Bilirubin 2.7 MG/DL (0.0-0.3) H Aspartate Amino Transf (AST/SGOT) 491 U/L (15-37) H Alanine Aminotransferase (ALT/SGPT) 109 U/L (12-78) H Alkaline Phosphatase 129 U/L (46-116) H Total Protein 3.6 G/DL (6.4-8.2) L Albumin 1.0 G/DL (3.4-5.0) L Globulin 2.6 g/dL Albumin/Globulin Ratio 0.4 (1.0-2.7) L Random Vancomycin Level 17.1 ug/mL Ionized Calcium (Measured) 1.00 mmol/L (1.10-1.35) L Arterial Blood pH 6.968 (7.350-7.450) Arterial Blood Partial Pressure CO2 35.1 mmHg (35.0-45.0) Arterial Blood Partial Pressure O2 131.5 mmHg (75.0-100.0) H Arterial Blood HCO3 7.9 mmol/L (22.0-26.0) *L Arterial Blood Oxygen Saturation 97.7 % (95-100) Arterial Blood Base Excess -22.6 (-2-2) *L Giovanny Test Current Medications Medications (Trade) Dose Ordered Sig/Akash Route PRN Reason Start Time Stop Time Status Last Admin Dose Admin Acetaminophen (Tylenol) 650 mg Q6H PRN NG FEVER 09/30/19 10:30 10/30/19 10:29 10/10/19 08:02 Amiodarone HCl (Cordarone) 200 mg EVERY 12 HOURS GT 10/05/19 09:00 11/04/19 08:59 10/11/19 09:07 Chlorhexidine Gluconate (Tammy-Hex 2%) 1 applic DAILY@2000 TOPIC 10/04/19 20:00 11/03/19 19:59 10/10/19 20:02 Dextrose/Sodium Chloride 1,000 ml @ 50 mls/hr Q20H IV 10/10/19 21:00 11/01/19 08:14 10/10/19 20:57 Diphenhydramine HCl (Benadryl) 25 mg Q6H PRN ORAL Itching 09/28/19 13:25 10/28/19 13:24 09/29/19 10:09 Hydrocortisone (Solu-CORTEF) 30 mg DAILY IV 10/07/19 09:00 11/06/19 08:59 10/11/19 09:07 Lansoprazole (Prevacid) 30 mg ACBREAKFAST NG 10/09/19 06:30 11/08/19 06:29 10/09/19 06:13 Lidocaine HCl (Xylocaine Viscous) 15 ml Q4H PRN ORAL For Pain 10/06/19 08:00 11/05/19 07:59 Lorazepam (Ativan 2mg/ml 1ml) 1 mg Q1H PRN IV For SEIZURE 10/09/19 11:30 10/16/19 11:29 10/10/19 02:47 Metoclopramide HCl (Reglan) 5 mg Q6H PRN ORAL Nausea & Vomiting 10/06/19 07:00 11/05/19 06:59 10/06/19 10:47 Multivitamins (Multivitamins) 1 tab DAILY ORAL 09/29/19 09:00 10/22/19 08:59 10/11/19 09:07 Nicotine (Nicoderm) 1 patch Q24H TDERMAL 09/29/19 01:00 10/29/19 00:59 10/10/19 01:29 Norepinephrine Bitartrate 8 mg/ Dextrose 508 ml @ 0 mls/hr Q24H IV 10/09/19 17:00 11/08/19 16:59 10/11/19 06:56 Phenylephrine HCl 100 mg/Dextrose 500 ml @ 0 mls/hr Q24H IV 10/10/19 15:00 11/09/19 14:59 10/11/19 06:47 Polymyxin B Sulfate 116219 units/Dextrose 275 ml @ 275 mls/hr EVERY 12 HOURS IV 10/07/19 10:00 10/14/19 09:59 10/11/19 09:07 Thiamine HCl (Vitamin B1) 100 mg DAILY ORAL 09/29/19 09:00 10/22/19 08:59 10/11/19 09:07 Vancomycin HCl (Vanco rx to dose) 1 ea DAILY PRN MISC Per rx protocol 10/02/19 10:30 11/01/19 10:29 Vasopressin 100 units/Sodium Chloride 100 ml @ 0 mls/hr Q24H IV 10/11/19 01:30 11/10/19 01:29 10/11/19 01:14 Jamie Swanson MD Oct 11, 2019 09:56
--- NOTE | 2019-10-11 10:00 | NUR ---
NURSE NOTES: Received call back from Dr Leavitt. Orders placed for 40 mg Protonix IVP every 12 hours. No other orders placed.
--- NOTE | 2019-10-11 10:40 | NUR ---
RD ASSESSMENT & RECOMMENDATIONS SEE CARE ACTIVITY FOR COMPLETE ASSESSMENT DAILY ESTIMATED NEEDS: Needs based on Liver, Pulmonary, Critical care 55kg 22-30 kcals/kg 3123-2273 total kcals 1.25-2 g protein/kg 69-110 g total protein 25-30 mL/kg 1442-4859 total fluid mLs NUTRITION DIAGNOSIS: * Increased kcal/prot needs R/T wound healing as evidenced by pt w/ partial thickness pressure injury within area of hyperpigmentation on sacrum, small furuncle at R elbow, and non-blanching erythema @ BL heels. * Swallowing difficulty R/T dysphagia, respiratory status as evidenced by pt on [facility] soft finely chopped texture- was upgraded to Soft easy chew, was mostly on BIPAP, on non-rebreather during meals-> now orally intubated in ICU, non oral feeds. * Decreased sodium and fat needs r/t clinical status, ascites, as evidenced by s/p paracentesis, elev LFT's, elev T bili (INACTIVE) CURRENT TF:Glucerna 1.5 @20ml - HELD ENTERAL NUTRITION RECOMMENDATIONS: Vital AF 1.2 @ 50ml/hr x 24 hrs to provide 1200ml, 1440kcal, 90g prot, 973ml free water Pt is currently unstable for feeds, elev residuals + max pressor support. Should condition improve rec VITAL AF at trophic rate of 5-10ml/hr to maintain gut integrity. Will continue to monitor ability to feeds at goal. ADDITIONAL RECOMMENDATIONS: 1) Obtain daily standing weight for accuracy or calibrated bedscale wt current bedscale wt 125 bs vs initial bedscale wt 158lbs 2) Monitor HD stability: on max pressors x3. 3) Monitor renal fxn, worsening. 4) Wound healing: add Vit C 250mg QD, Continue MVI Valerio 1pkt BID w/ good TF tolerance .
--- NOTE | 2019-10-11 10:57 | NUR ---
PRACTICING MD ANESTHESIOLOGIST PROGRESS NOTE HANH received a consult to locate the family on 10/11/2019. HANH left a vm to pt's friend, Mr. Blake Larson [phone] for call back. Signed: 10/11/19 at 1058 by REENA SCHAFER <Co-Signature Required>
[2019-10-11 11:28] LABS: HEMATOCRIT 26.4 % (42.0-52.0); HEMOGLOBIN 8.5 G/DL (14.2-18.0); MEAN CORPUSCULAR VOLUME 100 FL (80-99); PLATELET COUNT 30 K/UL (150-450); RED BLOOD COUNT 2.64 M/UL (4.70-6.10); RED CELL DISTRIBUTION WIDTH 17.5 % (11.6-14.8); WHITE BLOOD COUNT 21.7 K/UL (4.8-10.8)
[2019-10-11 11:49] LABS: ALANINE AMINOTRANSFERASE 384 U/L (12-78); ALBUMIN 1.4 G/DL (3.4-5.0); ALBUMIN/GLOBULIN RATIO 0.5 (1.0-2.7); ALKALINE PHOSPHATASE 164 U/L (46-116); ANION GAP 20 mmol/L (5-15); ASPARTATE AMINO TRANSFERASE 1476 U/L (15-37); BILIRUBIN,TOTAL 6.1 MG/DL (0.2-1.0); BLOOD UREA NITROGEN 131 mg/dL (7-18); CALCIUM 6.9 MG/DL (8.5-10.1); CARBON DIOXIDE 10 MMOL/L (21-32); CHLORIDE 99 MMOL/L (98-107); CREATININE 3.6 MG/DL (0.55-1.30); POTASSIUM 5.1 MMOL/L (3.5-5.1); SODIUM 128 MMOL/L (136-145)
[2019-10-11 11:50] LABS: BILIRUBIN,DIRECT 4.5 MG/DL (0.0-0.3)
--- NOTE | 2019-10-11 13:08 | NUR ---
[employer] REAL ESTATEPRIVACY SPECIALIST SI: RESP FAILURE ETT/VENT SUPPORT,AMS T. 97.4 HR 70 RR 30 B/P 84/36 AC 30 TV 550 FIO2 100% PEEP 8 WBC 21.7 NA 128 CR 3.6 AST 1476 ALT 384 ALK PHOS 164 IS: VASOPRESSIN IV LEVOPHED GTT PHENYLEPHRINE GTT IVF D5NS@ 50ML/HR SOLU CORTEF IV POLYMYXIN IV PROTONIX IV ICU STATUS
--- NOTE | 2019-10-11 13:30 | NUR ---
NURSE NOTES: Spoke to Roseline over phone who states she is pt's legal and that both have been for years. She left her phone number ([phone]) and wanted more information on the pt's condition; however, I explained to her that I cannot share any information but she is welcome to come during visiting hours to see pt. I also let her know that I will relay her information to our socially responsible investment adviser. An order for social consult was placed and I also left Roseline's info with Yessenia Cohen who will follow up with her and our socially responsible investment adviser.
--- NOTE | 2019-10-11 13:59 | NUR ---
SENIOR CORE JAVA DEVELOPER PROGRESS NOTE SW received following information: pt's Roseline [phone]. HANH spoke w/ Roseline and stating that she will be the primary decision maker. Roseline will visit pt this afternoon. HANH encouraged Roseline to discuss the prognosis w/ . Signed: 10/11/19 at 1402 by REENA SCHAFER <Co-Signature Required>
--- NOTE | 2019-10-11 14:50 | Surgery Progress Note ---
Surgery Progress Note Subjective Additional Comments no acute events exam stable extubated and improving slowly Objective Last 24 Hour Vital Signs Date Time Temp Pulse Resp B/P (MAP) Pulse Ox O2 Delivery O2 Flow Rate FiO2 10/11/19 14:45 68 87/38 10/11/19 14:00 69 29 85/39 (54) 100 10/11/19 14:00 85/39 10/11/19 13:30 69 30 86/38 (54) 100 10/11/19 13:22 66 30 100 10/11/19 13:00 70 30 87/37 (54) 100 10/11/19 13:00 87/37 10/11/19 12:30 70 30 86/37 (53) 100 10/11/19 12:00 78 10/11/19 12:00 100 10/11/19 12:00 97.4 70 30 84/36 (52) 100 10/11/19 12:00 84/36 10/11/19 12:00 Mechanical Ventilator Mechanical Ventilator Mechanical Ventilator 10/11/19 11:37 75/33 10/11/19 11:30 71 9 75/33 (47) 100 10/11/19 11:03 64 30 100 10/11/19 11:00 86/37 10/11/19 11:00 71 0 86/37 (53) 100 10/11/19 10:30 71 5 85/36 (52) 100 10/11/19 10:00 82/35 10/11/19 10:00 71 9 82/35 (51) 100 10/11/19 09:30 73 30 82/34 (50) 100 10/11/19 09:29 72 30 100 10/11/19 09:00 76 30 81/33 (49) 100 10/11/19 09:00 81/33 10/11/19 08:30 77 30 84/35 (51) 100 10/11/19 08:00 78 10/11/19 08:00 97.9 77 30 83/36 (52) 100 10/11/19 08:00 83/36 10/11/19 08:00 Mechanical Ventilator Mechanical Ventilator Mechanical Ventilator 10/11/19 08:00 100 10/11/19 07:30 78 30 84/35 (51) 100 10/11/19 07:28 78 30 100 10/11/19 07:00 77 0 82/34 (50) 100 10/11/19 07:00 82/34 10/11/19 06:56 83/34 10/11/19 06:47 74 85/36 10/11/19 06:30 69 30 85/36 (52) 100 10/11/19 06:00 87/34 10/11/19 06:00 66 30 87/34 (51) 100 10/11/19 05:03 66 30 100 10/11/19 05:00 87/36 10/11/19 05:00 66 30 87/36 (53) 100 10/11/19 04:30 66 30 90/38 (55) 100 10/11/19 04:21 65 10/11/19 04:00 97.3 66 30 88/37 (54) 100 10/11/19 04:00 Mechanical Ventilator Mechanical Ventilator Mechanical Ventilator 10/11/19 04:00 100 10/11/19 04:00 88/37 10/11/19 03:30 79 30 86/39 (55) 100 10/11/19 03:00 83/40 10/11/19 03:00 78 29 83/40 (54) 100 10/11/19 02:58 76 30 100 10/11/19 02:30 74 30 82/39 (53) 100 10/11/19 02:15 81 30 73/34 (47) 100 10/11/19 02:00 63 30 78/41 (53) 100 10/11/19 02:00 82/37 10/11/19 01:45 61 30 82/37 (52) 100 10/11/19 01:30 61 30 78/31 (47) 100 10/11/19 01:15 61 30 72/29 (43) 100 10/11/19 01:06 61 30 100 10/11/19 01:00 61 30 74/27 (43) 100 10/11/19 01:00 74/27 10/11/19 00:45 61 29 73/30 (44) 100 10/11/19 00:30 61 14 75/30 (45) 100 10/11/19 00:15 62 24 67/12 (30) 100 10/11/19 00:00 100 10/11/19 00:00 74/30 10/11/19 00:00 Mechanical Ventilator Mechanical Ventilator Mechanical Ventilator 10/11/19 00:00 97.3 62 30 74/30 (45) 100 10/10/19 23:45 62 30 74/28 (43) 100 10/10/19 23:30 62 30 73/29 (44) 100 10/10/19 23:29 62 10/10/19 23:21 62 75/25 10/10/19 23:20 63 30 100 10/10/19 23:15 63 27 75/25 (42) 100 10/10/19 23:12 63 30 73/28 (43) 100 10/10/19 23:00 63 30 74/28 (43) 100 10/10/19 23:00 74/28 10/10/19 22:30 63 30 74/28 (43) 100 10/10/19 22:00 73/28 10/10/19 22:00 62 30 73/28 (43) 100 10/10/19 21:40 70/25 10/10/19 21:30 63 30 70/25 (40) 100 10/10/19 21:17 63 30 100 10/10/19 21:00 63 30 71/27 (42) 100 10/10/19 21:00 71/27 10/10/19 20:30 64 30 71/25 (40) 100 10/10/19 20:00 100 10/10/19 20:00 74/28 10/10/19 20:00 97.3 64 30 74/28 (43) 100 10/10/19 20:00 Mechanical Ventilator Mechanical Ventilator Mechanical Ventilator 10/10/19 19:39 64 29 74/30 (45) 100 10/10/19 19:30 65 30 74/28 (43) 100 10/10/19 19:03 65 30 100 10/10/19 19:00 65 10/10/19 19:00 65 30 75/27 (43) 100 10/10/19 19:00 75/27 10/10/19 18:30 66 30 76/29 (45) 100 10/10/19 18:00 66 17 75/33 (47) 99 10/10/19 18:00 75/33 10/10/19 17:30 67 30 75/28 (44) 99 10/10/19 17:00 78/28 10/10/19 17:00 67 30 77/29 (45) 99 10/10/19 16:55 68 30 100 10/10/19 16:30 68 30 78/28 (45) 98 10/10/19 16:18 66 75/28 10/10/19 16:00 75/28 10/10/19 16:00 66 10/10/19 16:00 Mechanical Ventilator Mechanical Ventilator Mechanical Ventilator 10/10/19 16:00 100 10/10/19 16:00 97.5 69 30 75/28 (44) 98 10/10/19 15:30 70 30 73/28 (43) 98 10/10/19 15:00 72 28 74/29 (44) 98 10/10/19 15:00 74/29 I&O Intake and Output 10/10/19 10/11/19 19:00 07:00 Intake Total 3850.216 ml 3491.4 ml Output Total 55 ml 73 ml Balance 3795.216 ml 3418.4 ml IV Total 3850.216 ml 2984.4 ml Blood Product 507 ml Output Urine Total 5 ml 23 ml Stool Total 50 ml 50 ml # Bowel Movements 3 Dressing: other Wound: other Drains: other Cardiovascular: RSR Respiratory: decreased breath sounds Abdomen: soft, present bowel sounds Extremities: no cyanosis Laboratory Tests Test 10/11/19 00:54 10/11/19 10:45 Arterial Blood pH 6.968 (7.350-7.450) Arterial Blood Partial Pressure CO2 35.1 mmHg (35.0-45.0) Arterial Blood Partial Pressure O2 131.5 mmHg (75.0-100.0) H Arterial Blood HCO3 7.9 mmol/L (22.0-26.0) *L Arterial Blood Oxygen Saturation 97.7 % (95-100) Arterial Blood Base Excess -22.6 (-2-2) *L Giovanny Test White Blood Count 21.7 K/UL (4.8-10.8) H Red Blood Count 2.64 M/UL (4.70-6.10) L Hemoglobin 8.5 G/DL (14.2-18.0) L Hematocrit 26.4 % (42.0-52.0) L Mean Corpuscular Volume 100 FL (80-99) H Mean Corpuscular Hemoglobin 32.0 PG (27.0-31.0) H Mean Corpuscular Hemoglobin Concent 32.0 G/DL (32.0-36.0) Red Cell Distribution Width 17.5 % (11.6-14.8) H Platelet Count 30 K/UL (150-450) #L Mean Platelet Volume 6.9 FL (6.5-10.1) Neutrophils (%) (Auto) % (45.0-75.0) Lymphocytes (%) (Auto) % (20.0-45.0) Monocytes (%) (Auto) % (1.0-10.0) Eosinophils (%) (Auto) % (0.0-3.0) Basophils (%) (Auto) % (0.0-2.0) Differential Total Cells Counted 100 Neutrophils % (Manual) 76 % (45-75) H Lymphocytes % (Manual) 22 % (20-45) Monocytes % (Manual) 2 % (1-10) Eosinophils % (Manual) 0 % (0-3) Basophils % (Manual) 0 % (0-2) Band Neutrophils 0 % (0-8) Platelet Estimate Decreased L Platelet Morphology Normal Hypochromasia 2+ Anisocytosis 1+ Spherocytes 1+ Sodium Level 128 MMOL/L (136-145) L Potassium Level 5.1 MMOL/L (3.5-5.1) Chloride Level 99 MMOL/L (98-107) Carbon Dioxide Level 10 MMOL/L (21-32) L Anion Gap 20 mmol/L (5-15) H Blood Urea Nitrogen 131 mg/dL (7-18) H Creatinine 3.6 MG/DL (0.55-1.30) H Estimat Glomerular Filtration Rate 17.4 mL/min (>60) Glucose Level 332 MG/DL (74-106) H Calcium Level 6.9 MG/DL (8.5-10.1) L Total Bilirubin 6.1 MG/DL (0.2-1.0) H Direct Bilirubin 4.5 MG/DL (0.0-0.3) H Aspartate Amino Transf (AST/SGOT) 1476 U/L (15-37) H Alanine Aminotransferase (ALT/SGPT) 384 U/L (12-78) H Alkaline Phosphatase 164 U/L (46-116) H Total Protein 4.2 G/DL (6.4-8.2) L Albumin 1.4 G/DL (3.4-5.0) L Globulin 2.8 g/dL Albumin/Globulin Ratio 0.5 (1.0-2.7) L Plan Problems: (1) Sepsis Assessment & Plan: declining desaturation hypotensive on pressors labs reviewed prognosis guarded Pt presented hyperpigmentation sacrum with loose dry/peeling skin. Non -tender when palpated.Scrotum is erythematous. Pt is incontinent of B and B per staff. Condom cath placed on pt by primary nurse. Pt educated on wound prevention and encouraged to frequently turn ,or at least hourly to prevent skin breakdown. No other skin concerns noted. Tx.plan: Apply Moisture Barrier Paste to sacrum. Cover with Optifoam drsg. Change every 3 days and prn. Apply Cavilon Skin Barrier to both heels. Cover each heel with Optifoam drsg. Change every 7 days and prn. Reposition at least every 2hours or as tolerated. Off-load heels with pillow. DAILY ESTIMATED NEEDS: Needs based on Liver, Pulmonary, Critical care 55kg 22-30 kcals/kg 5362-3882 total kcals 1.25-2 g protein/kg 69-110 g total protein 25-30 mL/kg 4615-4555 total fluid mLs NUTRITION DIAGNOSIS: * Swallowing difficulty R/T dysphagia, respiratory status as evidenced by pt on [facility] soft finely chopped texture- was upgraded to Soft easy chew, was mostly on BIPAP, on non-rebreather during meals-> now orally intubated in ICU, non oral feeds. * Decreased sodium and fat needs r/t clinical status, ascites, as evidenced by s/p paracentesis, elev LFT's, elev T bili (INACTIVE) CURRENT TF:Glucerna 1.5 @20ml- held ENTERAL NUTRITION RECOMMENDATIONS: WHEN HD STABLE: Vital AF 1.2 @ 50ml/hr x 24 hrs to provide 1200ml, 1440kcal, 90g prot, 973ml free water * WHEN PT HEMODYNAMICALLY STABLE: -> initiate Vital AF 1.2 @ 10ml/hr x 6 hrs -> advance 10ml q 4-6 hrs as tolerated -> HOB over 30 degrees/ water flush per MD WITHOUT HD STABILTY: consider trophic feeding of Vital AF 1.2 @ 5-10ml/hr if able to raise bed >30 degrees ADDITIONAL RECOMMENDATIONS: 1) Obtain daily standing weight for accuracy or calibrated bedscale wt current bedscale wt 115 bs vs initial bedscale wt 158lbs 2) Monitor HD stability: on NE @ 30mcg-> now @8mcg-> now off LA trending up (4.0) 3) Monitor renal fxn and liver fxn: creat and T bili trend up 4) WC eval for sacral DTPI (2) Shock Assessment & Plan: Pulmonary arterial opacification is somewhat suboptimal, and small peripheral emboli could be missed. In addition, there is some image degradation due to motion artifact which also precludes exclusion of small peripheral emboli. No gross large vessel pulmonary emboli are demonstrated. The left main pulmonary artery is ectatic, measuring up to 2.5 cm. No isolated right ventricular dilatation. There is generalized four-chamber cardiomegaly. No evidence of thoracic aortic aneurysm or dissection. Normal caliber and branching anatomy of the right neck vessels is noted. There is extensive pulmonary parenchymal disease. There is extensive groundglass opacity involving most of the upper lobes. There is extensive interstitial septal thickening involving the lower lobes, as well as considerable atelectasis and confluent opacity. There is of bronchiectasis, subpleural blebs, and bilateral peripheral honeycombing are also present. There are bilateral small pleural effusions. The extent of the pulmonary parenchymal disease at the lung bases is greater than that which was visualized on abdomen CT scan of 08/23/2019 There is considerable edema of the mediastinal and epicardial fat, but no definite pericardial effusion is demonstrated. No mediastinal or hilar mass or adenopathy. Grossly unremarkable esophagus. The visualized thyroid is unremarkable. No axillary or chest wall mass or adenopathy. There is mild height loss of the T8 vertebral body. It is slightly sclerotic, demonstrates considerable superior and inferior endplate irregularity. There is degenerative spondylosis elsewhere in the thoracic spine. Included upper abdominal anatomy demonstrates atrophic liver with surface nodularity. There is a TIPS shunt in place which is probably patent. There is hypertrophy of the hepatic arteries. Gallstones are noted. There is considerable ascites fluid present. What are probably embolic coils are seen in the region of the splenic capsule. Impression: Somewhat suboptimal pulmonary arterial opacification as well as limitation of exam by motion artifact. Small peripheral emboli not completely excludable. No gross large vessel central pulmonary emboli demonstrated. Mildly dilated left main pulmonary artery, suggestive of but not diagnostic for pulmonary arterial hypertension Cardiomegaly Evidence of anasarca, with diffuse body wall and mediastinal edema, small bilateral pleural effusions, ascites Extensive pulmonary parenchymal disease, as described, with groundglass opacity, interstitial septal thickening, bronchiectasis, subpleural blebs, and peripheral honeycombing. Given the finding of cardiomegaly and anasarca, findings most likely on the basis of pulmonary edema. Pneumonia is also a possibility. In addition, there is probably underlying component of chronic fibrotic change. T8 vertebral body loss of height. This may reflect age-indeterminate compression fracture deformity versus degenerative remodeling. Consider MRI for better characterization if clinically relevant Evidence of hepatic cirrhosis. Evidence of portal hypertension, with a TIPS shunt in place, and ascites. This is been previously described Cholelithiasis Perisplenic embolic coils. Degenerative spondylosis (3) Cirrhosis Assessment & Plan: There is an orogastric tube in place, tip projected at the level of the fundus body junction, proximal port well distal to the expected level of the gastric esophageal junction. There is a TIPS shunt present. Bowel gas pattern is unremarkable. Vascular embolic coils are seen in the left upper quadrant. There is mild lumbar scoliotic deformity and considerable degenerative lumbar spondylosis * Significant interval reduction of ascites status post paracentesis. * Cirrhosis with indwelling patent TIPS shunt. Elevated velocities in the distal aspect of the TIPS shunt > 200 cm/s suggesting a degree of possible in-stent stenosis, especially given recurrent ascites. Correlation with prior ultrasound is essential to assess for interval change in velocities. Patient may benefit from interventional tip study with portal pressure measurements and possible TIPS angioplasty, especially if there is a significant elevation in velocities in the shunt upon comparison with baseline study. * Cholelithiasis. No radiographic evidence to suggest acute cholecystitis. Sonographic Ponce sign reported as negative. (4) Respiratory failure, acute KyletatedariaMichael Oct 11, 2019 14:50
--- NOTE | 2019-10-11 16:00 | NUR ---
NURSE NOTES: Pt repositioned. Central line dressing changed. Pt in no acute distress. Oral care performed. Pt is afebrile. Will continue to monitor.
[2019-10-11] MEDS: D5NS 1,000 ML IV SCH (16:36)
--- NOTE | 2019-10-11 17:00 | NUR ---
NURSE NOTES: Pt's Roseline at bedside and requested to speak to Dr. Leavitt by phone. Dr Leavitt called back and discussed pt's condition with Roseline.
--- NOTE | 2019-10-11 18:00 | NUR ---
NURSE NOTES: Pt repositioned and cleaned, wound care performed again. Pt remains in unchanged condition, remains comatosed with no response to deep pain. Pupils both still non-reactive to light. Pt is cool to touch. No acute bleeding noted from oral cavity as it the case yesterday. Pt suctioned endotracheally with moderate amount of thin, vergara secretions. Pt is still edematous and oozing serous fluid from BUE and scrotum. Bed in lowest position, alarm on, side rails up x 2 and padded per seizure precaution. Will continue to monitor. Addendum: 10/11/19 at 1832 by Breann Spaulding RN Late entry: minimal amount of dark isabel urine noted through schafer during shit (aprox. 5 cc total). Dr. Leavitt and Joey are both aware.
--- NOTE | 2019-10-11 19:00 | NUR ---
HAND-OFF: Report given to REINALDO Sanchez. Pt remains in unchanged condition.
[2019-10-11] MEDS: Dyna-Hex 2% Top Sol 2oz TOPIC SCH (19:35)
--- NOTE | 2019-10-11 19:59 | NUR ---
NURSE NOTES: PATIENT OBTUNDED, NO RESPONSE TO VERBALLY AND TACTILE STIMULI, ON ETT TO VENT, AC30/TV550/FIO2 100%/PEEP8, O2 SATURATION 100%, HEART RATE 60'S/MIN SINUS RHYTHM, OGT INTACT AND PATENT, KEPT HOB 30 DEGREES, HELD FEEDING STATUS, ABDOMEN DISTENDED, NON TENDER, NOTED UMBILICAL HERNIA, RECTAL TUBE INTACT AND PATENT, GREENISH BLACK COLOR LIQUID STOOL OUTED, F/C INTACT AND PATENT, AURIC STATUS, PICC LINE TO RIGHT UPPER ARM, INTACT AND PATENT, ONGOING LEVOPHED 30MCG/MIN, PHENYLEPHRINE 240MCG/MIN AND VASOPRESSIN 0.04 UNITS/MIN VIA PICC LINE, SEROSANGUINEOUS WEEPING FROM BOTH ARMS AND LEFT FEMORAL PREVIOUS TLC SITE, KEPT SZ AND ASPIRATION PRECAUTION, ON P200 BED, ON BED ALARM AND LOCKED, MADE LOWER BED POSITION, WILL CONTINUE TO MONITOR.
[2019-10-11] MEDS ORDERED: Pantoprazole Inj IVP SCH (21:00)
--- NOTE | 2019-10-11 21:11 | NUR ---
NURSE NOTES: APPLIED GABBY HUGGER DUE TO LOWER TEMP 95.4F NOTED, HEART RATE 58-59/MIN SB NOTED, WILL CONTINUE TO MONITOR.
--- NOTE | 2019-10-11 22:27 | NUR ---
NURSE NOTES: No response to stimuli, sbp below 80mmhg status, heart rate 58/min SB noted, elevated all extremities, will continue to monitor.
--- NOTE | 2019-10-11 23:15 | NUR ---
NURSE NOTES: DESATURATION 88% NOTED, CALLED RT.
[2019-10-12] VITALS (12 sets, daily range): BP systolic 36–103; BP diastolic 14–45
[2019-10-12] MEDS: Norepinephrine Bitartrate 8 MG in D5W 500ml 500 ML IV SCH (01:19)
[2019-10-12] MEDS: Vasopressin 100 UNITS in NS 95 ML IV SCH (01:24)
--- NOTE | 2019-10-12 01:44 | NUR ---
NURSE NOTES: PATIENT NO RESPONSE, BP 60/32MMHG, HEART RATE 37/MIN SB, O2 SATURATION 50% ON FIO2 100% ETT TO VENT, COLD SKIN, WILL CONTINUE TO MONITOR.
[2019-10-12] MEDS ORDERED: D5NS 1000ml IV ONE (02:21)
[2019-10-12] MEDS ORDERED: Tubing IV Secondary IV ONE (02:21)
[2019-10-12] MEDS ORDERED: Tubing IV Blood Pump IV ONE (02:21)
[2019-10-12] MEDS ORDERED: Tubing Blood Filter IV ONE (02:21)
[2019-10-12] MEDS ORDERED: NS 275ml ONE (02:21)
[2019-10-12] MEDS ORDERED: D5W 550ml IV ONE (02:21)
--- NOTE | 2019-10-12 02:22 | NUR ---
NURSE NOTES: NO PULSE STATUS, NOTED ASYSTOLE.
--- NOTE | 2019-10-12 03:00 | NUR ---
PRONOUNCEMENT: No Code. Called to pronounce patient. Absence of spontaneous respirations, no cardiac or breath sounds on auscultation. Pupils fixed and dilated. No carotid pulse or chest movement. ER Doctor JAMEY PRONOUNCE that Patient at 0222AM. DR WOODS notified PER Telephone. Family who is Roseline Thurston was notified at 0246AM .
--- NOTE | 2019-10-12 03:15 | Progress Note ---
DATE: 10/11/2019 CARDIOLOGY PROGRESS NOTE SUBJECTIVE: The patient's condition remains critical. Prognosis is guarded. Blood pressure is marginal pressors at maximal doses. He is on full ventilator support. Monitored rhythm is sinus with atrial ectopics. OBJECTIVE: VITAL SIGNS: Blood pressure 76/37, heart rate 55 to 65, and respiratory rate 30. LUNGS: Bilateral rales. CARDIAC: Regular rhythm. Slow rate. ABDOMEN: Soft. EXTREMITIES: No edema. NEUROLOGIC: Obtunded. IMPRESSION: 1. Critical and grave. 2. Multiorgan system failure. 3. Severe hypoxia due to lung disease with refractory shock. PLAN: 1. Volume and pressor support. 2. Antimicrobials. 3. Full ventilator support. 4. Comfort measures. 5. DNR/DNI at this time. 6. No family to contact. Ar Gomez M.D. DR: ABBI JOB#: [id number] CC:
--- NOTE | 2019-10-12 03:39 | NUR ---
NURSE NOTES: LE: CALLED PT'S FRIEND WHO IS ABENA MARTINEZ NOTIFIED AT 0248AM. CALLED [facility] BY REINALDO CARO THAT REPORTED FLAKITA, RECEIVED DNN NUMBER ([phone]) AT 0252AM. BOX [employer] CHECKER NOTIFIED BY YUE THAT SPOKE WITH BASILIO, NO CC OR NCC NUMBER STATUS AT 0315AM.
--- NOTE | 2019-10-12 03:44 | Emergency Room Report ---
History of Present Illness General Chief Complaint: Altered Level of Consciousness Source: Medical Record, PMD Present Illness Allergies: Coded Allergies: PENICILLINS (Verified Allergy, Intermediate, Rash, 09/01/19) Patient stated at this time Nursing Documentation-PMH Past Medical History Deferred: Pt Cognitively Impaired Past Medical History: Deferred Hx Gastrointestinal Problems: Yes - HERNIA, unable to assess d/t ALOC Physical Exam Vital Signs Date Time Temp Pulse Resp B/P (MAP) Pulse Ox O2 Delivery O2 Flow Rate FiO2 10/08/19 07:00 80 27 102/34 (56) 93 10/08/19 08:00 50 10/08/19 08:00 Mechanical Ventilator Mechanical Ventilator 10/08/19 08:00 98.0 Medical Decision Making Diagnostic Impression: Primary Impression: Respiratory failure, acute Qualified Codes: J96.01 - Acute respiratory failure with hypoxia Additional Impression: Hypoxia ER Course I was called to the ICU to pronounce this patient. On ventilator. Patient DNR. Patient lost pulse. I pronounced patient at 2:22am Last Vital Signs Date Time Temp Pulse Resp B/P (MAP) Pulse Ox O2 Delivery O2 Flow Rate FiO2 10/12/19 02:25 0 0 7 10/12/19 02:15 36/14 (21) 10/12/19 01:12 100 10/12/19 00:00 Mechanical Ventilator Mechanical Ventilator Mechanical Ventilator 10/12/19 00:00 94.0 Status: worsened Disposition: Condition: Scripts Unable to Obtain Active Prescriptions or Reported Meds Referrals: NOT CHOSEN IPA/,REFERRING (PCP) Chris Winston MD Oct 12, 2019 03:44
== END 2019-10-12 02:22 | disposition expired | DRG 91 ==
LOC: EDBD 07:29 → EMR 08:04 → 2E 12:33 → EDBD 12:33 → EDBEDREQ 13:13 → 2E 16:15 → 2W 08-28 03:23 → 2E 09-25 08:20 → ICU 09-28 11:45
PROC: 0W9G3ZX Drainage of Peritoneal Cavity, Percutaneous Approach, Diagnostic (ICD-10-PCS; principal; 2019-08-26)
PROC: 06HN33Z Insertion of Infusion Device into Left Femoral Vein, Percutaneous Approach (ICD-10-PCS; 2019-09-28)
PROC: 0BH17EZ Insertion of Endotracheal Airway into Trachea, Via Natural or Artificial Opening (ICD-10-PCS; 2019-09-28)
PROC: 5A1955Z Respiratory Ventilation, Greater than 96 Consecutive Hours (ICD-10-PCS; 2019-09-28)
PROC: B518ZZA Fluoroscopy of Superior Vena Cava, Guidance (ICD-10-PCS; 2019-10-04)
PROC: 02HV33Z Insertion of Infusion Device into Superior Vena Cava, Percutaneous Approach (ICD-10-PCS; 2019-10-04)
DX: G92 Toxic encephalopathy (principal); A41.9 Sepsis, unspecified organism; J15.212 Pneumonia due to Methicillin resistant Staphylococcus aureus; R65.21 Severe sepsis with septic shock; J96.02 Acute respiratory failure with hypercapnia; J96.01 Acute respiratory failure with hypoxia; I50.43 Acute on chronic combined systolic (congestive) and diastolic (congestive) heart failure; E43 Unspecified severe protein-calorie malnutrition; N39.0 Urinary tract infection, site not specified; N17.9 Acute kidney failure, unspecified; K92.2 Gastrointestinal hemorrhage, unspecified; J84.9 Interstitial pulmonary disease, unspecified; Z99.11 Dependence on respirator [ventilator] status; E27.40 Unspecified adrenocortical insufficiency; E87.1 Hypo-osmolality and hyponatremia; F16.90 Hallucinogen use, unspecified, uncomplicated; F10.129 Alcohol abuse with intoxication, unspecified; Z59.0 Homelessness; K70.31 Alcoholic cirrhosis of liver with ascites; D64.9 Anemia, unspecified; D69.6 Thrombocytopenia, unspecified; E87.6 Hypokalemia; E83.51 Hypocalcemia; K72.90 Hepatic failure, unspecified without coma; I48.0 Paroxysmal atrial fibrillation; J47.9 Bronchiectasis, uncomplicated; E83.42 Hypomagnesemia; E87.8 Other disorders of electrolyte and fluid balance, not elsewhere classified; K31.84 Gastroparesis
CPT/HCPCS: 36415; 36569; 36600; 70450; 71045; 71275; 74018; 74176; 76700; 76937; 76942; 80048; 80053; 80202; 80307; 81001; 81003; 82140; 82248; 82330; 82550; 82607; 82746; 82803; 82962; 83605; 83735; 83880; 84443; 84484; 85007; 85025; 85384; 85610; 85730; 86703; 86850; 86900; 86901; 86920; 87040; 87070; 87081; 87086; 87181; 87205; 89051; 93306; 93970; 94002; 94003; 94660; 94664; 96361; 96365; 96366; 96368; 99285; G0480; J1165; J2370; J2405; J7030; J8499